=== PATIENT | female | born 1965 | race Caucasian/White ===

== ENCOUNTER 2017-08-08 18:28 | Emergency (ER) | payer OTHER, SELFPAY ==
[2017-08-08 18:45] VITALS: BP 124/65; PULSE 105; RESP 20; TEMP 37.2; O2SAT 96; BMI 28.9
--- NOTE | 2017-08-08 18:55 | HMH.EDUTC ---
[facility] [place] Disposition Clinical Impression: Environmental allergies Asthma Qualifiers: Asthma severity: unspecified severity Asthma persistence: unspecified Asthma complication type: with acute exacerbation Qualified Code(s): J45.901 - Unspecified asthma with (acute) exacerbation Disposition: Home, Self-Care Condition on Discharge: Good Instructions: DI for Asthma -- Adult, DI for Allergic Rhinitis Additional Instructions: * STOP SMOKING!!!! * Avoid triggers!! * Monitor Temp. Fever is not expected so if occurs, be sure to follow * humidifier/vaporizer/hot steamy shower * Inhaler every 4-6 hours as needed like we discussed. Should help open airways and improve cough, wheezing, shortness of breath. * Start steroid tomorrow since we gave you first dose in clinic. Helps with inflammation therefore, cough and wheezing. Follow directions on package. Rvwd side effects. Pt reports they have taken them before. * Restart your zyrtec * Continue your flonase 2 sprays each nostril daily Prescriptions: predniSONE [Prednisone 10mg Tab Dose-Pack] 10 mg PO UD DOSE PK 6 Days #1 pack Referrals: Meagan Driscoll APRN [Primary Care Provider] - (IMMEDIATELY for new or worsening symptoms OR no noticeable improvement over the next 48 hours. 911 for difficulty breathing.) Time of Disposition: 19:00 Medical Decision Making - Chepe Inquiry Pt receiving controlled substance: No Vital Signs: 08/08/17 18:45 Temperature 98.9 F Temperature Source Temporal Artery Scan Pulse Rate [Brachial] 105 H Respiratory Rate 20 Blood Pressure [Right Arm] 124/65 Blood Pressure Mean [Right Arm] 84 Blood Pressure Position [Right Arm] Standing 02 Sat by Pulse Oximetry 96 Oxygen Delivery Method Room Air Orders (Tests/Meds): ED MEDICATIONS Discontinued Medications Generic Name Dose Route Start Last Admin Trade Name Freq PRN Reason Stop Dose Admin Prednisone 20 mg 08/08/17 18:55 Deltasone 20mg Tablet PO 08/08/17 18:56 ONCE ONE [facility] [place] HPI - General Stated complaint: cough, Time Seen by Provider: 08/08/17 18:45 Mode of Arrival: Ambulatory Source of Information: Patient Limitations: No Limitations Description of Symptoms (Recalled from Triage Doc. by RN): COUGHING AND CHEST CONGESTION SINCE SUNDAY. USED HER BREATHING TX AT HOME BUT IT DIDNT SEEM TO HELP. HEENT Symptoms (Recalled from RN notes): No Resp Symptoms (Recalled from RN notes): Yes Skin Symptoms (Recalled from RN notes): No MS Symptoms (Recalled from RN notes): No Functional Status (Recalled from RN notes): NA - History of Present Illness Provider Complaint: c/o cough, chest tightness, wheezing. Started Sunday after cleaning a doctor's office that had a dog and candle. pt thinks she was allergic to it. Immediate onset of allergy symptoms (sneezing, headache, PND, cough). Used neb that night and seemed to help. Seemed ok yesterday until the evening. Chest tight again. Albuterol helps but wears off. Hx of allergies. Typically takes zyrtec and flonase but was doing well so stopped both. Restarted flonase when these symptoms. Is not taking zyrtec. Thinks she needs steroids like she has had to have in the past. No fever, aches, chills. - Related Data Home Medications Medication Instructions Recorded Confirmed Albuterol Sulfate [Albuterol 2.5 mg IH Q6H 08/08/17 08/08/17 0.083% 2.5mg/3mL neb] Albuterol Sulfate [Proair Hfa 1 mcg INHALATION NEEDED PRN 08/08/17 08/08/17 90mcg/puff Inh] Albuterol Sulfate [Proair Hfa 2 puffs IH Q4HP PRN 08/08/17 08/08/17 90mcg/puff Inh] Diclofenac Sodium 50 mg PO TID 08/08/17 08/08/17 Lisinopril/Hydrochlorothiazide 1 tab PO DAILY 08/08/17 08/08/17 [Lisinopril-Hctz 10-12.5 mg Tab] Previous Rx's Medication Instructions Recorded predniSONE [Prednisone 10mg Tab 10 mg PO UD DOSE PK 6 Days #1 pack 08/08/17 Dose-Pack] Allergies Allergy/AdvReac Type Severity Reaction Status Date / Time No Known Allergies Allerg
--- NOTE | 2017-08-08 18:59 | ED_ITS ---
[facility] [place] Clinical Impression: Environmental allergies Asthma Qualifiers: Asthma severity: unspecified severity Asthma persistence: unspecified Asthma complication type: with acute exacerbation Qualified Code(s): J45.901 - Unspecified asthma with (acute) exacerbation Disposition: Home, Self-Care Condition on Discharge: Good Instructions: DI for Asthma -- Adult, DI for Allergic Rhinitis Additional Instructions: * STOP SMOKING!!!! * Avoid triggers!! * Monitor Temp. Fever is not expected so if occurs, be sure to follow * humidifier/vaporizer/hot steamy shower * Inhaler every 4-6 hours as needed like we discussed. Should help open airways and improve cough, wheezing, shortness of breath. * Start steroid tomorrow since we gave you first dose in clinic. Helps with inflammation therefore, cough and wheezing. Follow directions on package. Rvwd side effects. Pt reports they have taken them before. * Restart your zyrtec * Continue your flonase 2 sprays each nostril daily Prescriptions: predniSONE [Prednisone 10mg Tab Dose-Pack] 10 mg PO UD DOSE PK 6 Days #1 pack Referrals: Meagan Driscoll APRN [Primary Care Provider] - (IMMEDIATELY for new or worsening symptoms OR no noticeable improvement over the next 48 hours. 911 for difficulty breathing.) Time of Disposition: 19:00 Medical Decision Making - Chepe Inquiry Pt receiving controlled substance: No Vital Signs: 08/08/17 18:45 Temperature 98.9 F Temperature Source Temporal Artery Scan Pulse Rate [Brachial] 105 H Respiratory Rate 20 Blood Pressure [Right Arm] 124/65 Blood Pressure Mean [Right Arm] 84 Blood Pressure Position [Right Arm] Standing 02 Sat by Pulse Oximetry 96 Oxygen Delivery Method Room Air Orders (Tests/Meds): ED MEDICATIONS Discontinued Medications Generic Name Dose Route Start Last Admin Trade Name Freq PRN Reason Stop Dose Admin Prednisone 20 mg 08/08/17 18:55 Deltasone 20mg Tablet PO 08/08/17 18:56 ONCE ONE [facility] [place]PI - General Stated complaint: cough, Time Seen by Provider: 08/08/17 18:45 Mode of Arrival: Ambulatory Source of Information: Patient Limitations: No Limitations Description of Symptoms (Recalled from Triage Doc. by RN): COUGHING AND CHEST CONGESTION SINCE SUNDAY. USED HER BREATHING TX AT HOME BUT IT DIDNT SEEM TO HELP. HEENT Symptoms (Recalled from RN notes): No Resp Symptoms (Recalled from RN notes): Yes Skin Symptoms (Recalled from RN notes): No MS Symptoms (Recalled from RN notes): No Functional Status (Recalled from RN notes): NA - History of Present Illness Provider Complaint: c/o cough, chest tightness, wheezing. Started Sunday after cleaning a doctor's office that had a dog and candle. pt thinks she was allergic to it. Immediate onset of allergy symptoms (sneezing, headache, PND, cough). Used neb that night and seemed to help. Seemed ok yesterday until the evening. Chest tight again. Albuterol helps but wears off. Hx of allergies. Typically takes zyrtec and flonase but was doing well so stopped both. Restarted flonase when these symptoms. Is not taking zyrtec. Thinks she needs steroids like she has had to have in the past. No fever, aches, chills. - Related Data Home Medications Medication Instructions Recorded Confirmed Albuterol Sulfate [Albuterol 2.5 mg IH Q6H 08/08/17 08/08/17 0.083% 2.5mg/3mL neb] Albuterol
[2017-08-08 19:02] VITALS: BP 136/85; PULSE 89; RESP 18; TEMP 36.8; O2SAT 99
== END 2017-08-08 19:04 | disposition home or self-care (01) ==
PROVIDERS: Emergency Provider Nurse Practitioner Family; PCP Nurse Practitioner
DX: J45.901 Unspecified asthma with (acute) exacerbation (principal); I10 Essential (primary) hypertension; F17.210 Nicotine dependence, cigarettes, uncomplicated; Z91.09 Other allergy status, other than to drugs and biological substances
CPT/HCPCS: 99201

== ENCOUNTER → 2018-04-12 10:26 | Outpatient (CLI) | payer OTHER, SELFPAY | PROVIDERS: PCP Nurse Practitioner; Visit Provider Nurse Practitioner | DX: J44.1 Chronic obstructive pulmonary disease with (acute) exacerbation (principal) | CPT/HCPCS: 94060; 94640 ==

== ENCOUNTER 2018-04-30 15:45 | Outpatient (RCR) | payer OTHER, SELFPAY | END 2018-08-14 08:55 | disposition home or self-care (01) | LOC: PT 15:45 | PROVIDERS: Visit Provider Nurse Practitioner | DX: J44.1 Chronic obstructive pulmonary disease with (acute) exacerbation (principal); J44.9 Chronic obstructive pulmonary disease, unspecified | CPT/HCPCS: G0424 ==

== ENCOUNTER → 2018-10-09 08:23 | Outpatient (CLI) | payer OTHER, SELFPAY ==
--- NOTE | 2018-10-09 08:26 | US_ITS ---
US Kidney CLINICAL INDICATION: Abdominal pain, bilateral flank pain, possible left renal mass, deformity of the left kidney ITS.REASON: ABN CT KIDNEY SCAN ORDERING PHYSICIAN: Meagan Driscoll APRN PATIENT AGE: 53 years Comparison: 09/29/2018 FINDINGS: The right kidney measures 7 x 4 x 3 cm. No hydronephrosis. No significant cortical thinning. The left kidney is 7 x 4 x 3 cm the left kidney is not well demonstrated sonographically. No hydronephrosis is apparent. There is cortical scarring of the left kidney. IMPRESSION: 1. Unremarkable right kidney. 2. Cortical scarring of the left kidney. No hydronephrosis. The left kidney is poorly demonstrated. Underlying parenchymal pathology cannot be excluded based on this exam. Further evaluation could be obtained with MRI if clinically desired
== END ==
PROVIDERS: PCP Nurse Practitioner; Visit Provider Nurse Practitioner
DX: R93.422 Abnormal radiologic findings on diagnostic imaging of left kidney (principal); R93.421 Abnormal radiologic findings on diagnostic imaging of right kidney
CPT/HCPCS: 76770

== ENCOUNTER → 2018-10-31 07:48 | Outpatient (CLI) | payer OTHER, SELFPAY ==
--- NOTE | 2018-10-31 07:52 | MR_ITS ---
MR lumbar spine wo con, MR 3-d myelogram/MRCP HISTORY: LBP. Intermittent LT leg pain, numbness, and tingling. XYRS. ITS.REASON: LUMBAGO WITH SCIATICA ORDERING PHYSICIAN: Meagan Driscoll APRN PATIENT AGE: 53 years Comparison: CT 01-15-18. TECHNIQUE: Standard multiplanar multiecho sequences are performed without contrast. 3-D MIP and myelographic images are also rendered and reviewed FINDINGS: There is normal alignment. The spinal cord ends at the T12 level. L1-L2: Unremarkable. L2-L3: There is degenerative disc disease with some endplate hypertrophic change anteriorly. There is bulging disc with a broad-based left foraminal disc protrusion with moderate left foraminal narrowing and mild left lateral recess narrowing. L3-L4: Mild facet and ligamentum flavum hypertrophic change. L4-L5: Degenerative disc disease with 5 mm anterolisthesis of L4 with bulging disc at that level which is eccentric toward the left with left paracentral disc osteophyte complex. There is moderate facet ligamentum flavum hypertrophy with moderate bilateral lateral recess narrowing greater on the left and moderate left-sided foraminal narrowing. There is a small amount fluid in the facets at this level. L5-S1: Degenerative disc disease with bulging disc and a broad-based central and right paracentral disc protrusion abutting the right S1 nerve root with right lateral recess narrowing. No extruded herniated disc or bony canal stenosis. IMPRESSION: 1. L2-L3: There is degenerative disc disease with some endplate hypertrophic change anteriorly. There is bulging disc with a broad-based left foraminal disc protrusion with moderate left foraminal narrowing and mild left lateral recess narrowing 2. L4-L5: Degenerative disc disease with 5 mm anterolisthesis of L4 with bulging disc at that level which is eccentric toward the left with left paracentral disc osteophyte complex. There is mild impingement upon the left L3 nerve root anteriorly. There is moderate facet ligamentum flavum hypertrophy with moderate bilateral lateral recess narrowing greater on the left and moderate left-sided foraminal narrowing. There is a small amount fluid in the facets at this level. 3. L5-S1: Degenerative disc disease with bulging disc and a broad-based central and right paracentral disc protrusion abutting the right S1 nerve root with right lateral recess narrowing. 4. No extruded herniated disc or canal stenosis
== END ==
PROVIDERS: PCP Nurse Practitioner; Visit Provider Nurse Practitioner
DX: M54.42 Lumbago with sciatica, left side (principal); M54.41 Lumbago with sciatica, right side
CPT/HCPCS: 72148; 76376

== ENCOUNTER 2018-11-26 08:00 | Outpatient (RCR) | payer OTHER, SELFPAY ==
--- NOTE | 2018-11-18 11:29 | HMH.PTOPEV ---
PT Outpatient Evaluation Rehab PT Outpatient Evaluation Start: 11/18/18 10:37 Freq: Status: Active Protocol: Document 11/18/18 10:37 DERREK (Rec: 11/18/18 11:28 DERREK [id number]) Electronically Signed By Jimy Zazueta, PT 11/18/18 10:37 Outpatient Therapy Subjective History Subjective History Pt rpeorts h/o LBP w/ exacerbation over the last 2-3 months. Pt reports recent MRI has revealed lumbar disc buldges. Pt reports L>R sided LBP with intermittent radicular s/s into L hip/glut area. PMH: cervical fusion 2007 Chief Complaint Pain,Stiff,Paresthesia Symptom Type Ache,Sharp,Dull Symptoms Relieved By Rest/Positioning,Heat,Ice Symptoms Aggravated By Physical Activity,Walking Prior Functional Limitations Lifting,Housework,Walking, Bending/Stooping Current Functional Limitations Lifting,Housework,Walking, Bending/Stooping Symptom Description Constant but Variable Level of pain today (0-10) 7 Pain scale - at its best (0-10) 3 Pain scale - at its worst (0-10) 8 Lumbopelvic Eval Posture Thoracic Spine Posture Standing Position Neutral Lumbar Spine Posture Standing Position Neutral Assistive device Assistive Devices None / NA Gait Observation General Gait Pattern Observation Antalgic Gait Palapation tenderness left lumbar spinal tenderness Yes: 3/4 paraspinal tenderness Yes: 3/4 buttock tenderness Yes: 3/4 Lumbar/Sacral Palpation Findings Tenderness right lumbar spinal tenderness Yes: 3/4 paraspinal tenderness Yes: 3/4 buttock tenderness Yes: 3/4 Lumbar/Sacral Palpation Findings Tenderness Accessory Movement L-spine Vertebrae Accessory Movements Central [employer] [place] that [place] Symptoms L3 bilateral L4 bilateral L5 bilateral Range of Motion Lumbar Spine Active Flexion Range of 0-30 Motion (degrees) Lumbar Spine Active Extension Range of 0-20 Motion (degrees) Left Lumbar Spine Lateral Flexion Active 0-20 Range of Motion (degrees) Right Lumbar Spine Lateral Flexion 0-30 Active Range of Motion (degrees) Lumbar Spine ROM Limitations Pain Manual Muscle Test Right Knee Extension Strength Grade 5 Normal Knee Flexion Strength Grade 5 Normal Hip Flexion Strength Grade 5 Normal Extensor Hallucis Longus Strength Grade 5 Normal Ankle Dorsiflexion Strength Grade 5 Normal G
== END 2018-11-26 08:05 | disposition home or self-care (01) ==
LOC: PT 08:00
PROVIDERS: Visit Provider Nurse Practitioner
DX: M51.26 Other intervertebral disc displacement, lumbar region (principal)
CPT/HCPCS: 97010; 97012; 97014; 97110; 97163; G0283

== ENCOUNTER → 2019-01-27 16:03 | Outpatient (CLI) | payer OTHER, SELFPAY ==
--- NOTE | 2019-01-27 16:08 | XR_ITS ---
PROCEDURE: XR HIP RT 2-3V W/PELVIS CLINICAL INDICATION: FALL,MEMORY LOSS, Posttraumatic pain COMPARISON: No exams were available for comparison FINDINGS: Mild osteoarthritic change, no acute fracture or dislocation. IMPRESSION: No acute findings. Dictated by: Darrick Blackwell MD 01/28/2019 07:14 Electronically signed by Darrick Blackwell MD in [place] 01/28/2019 07:14
--- NOTE | 2019-01-27 16:08 | XR_ITS ---
PROCEDURE: XR CERVICAL SPINE 5V CLINICAL INDICATION: FALL,C-SPINE PAIN Neck pain following injury COMPARISON: No exams were available for comparison FINDINGS: There is straightening of the cervical lordosis. The bone plate is present anteriorly at C5-C6. There degenerative disc disease at C4-C5 and C6-C7. Facet hypertrophic changes are present from C3-C7. Foraminal narrowing is present on the right at C2-C3 C3-C4 C4-C5 and on the left at C3-C4 C4-C5. No obvious fracture or dislocation.. The inferior screws at the bone plate are near the C6-C7 interspace level. CT may better localize the definite location of the screws. IMPRESSION: 1. No acute fracture. 2. Multilevel cervical spondylosis. 3. Prior anterior fusion at C5-C6. The inferior screws are at the lower aspect of C6/C6-C7 Dictated by: Darrick Blackwell MD 01/28/2019 07:11 Electronically signed by Darrick Blackwell MD in [place] 01/28/2019 07:11
--- NOTE | 2019-01-27 16:08 | XR_ITS ---
PROCEDURE: XR ELBOW RT MIN 3V CLINICAL INDICATION: FALL,MEMORY LOSS Posttraumatic pain COMPARISON: No exams were available for comparison FINDINGS: No fracture or dislocation. No lytic or blastic change. There is normal mineralization. There are mild osteoarthritic changes Other findings:No displaced fat pad IMPRESSION: No acute findings. Dictated by: Darrick Blackwell MD 01/28/2019 07:14 Electronically signed by Darrick Blackwell MD in [place] 01/28/2019 07:14
== END ==
PROVIDERS: PCP Nurse Practitioner; Visit Provider Nurse Practitioner
DX: R41.3 Other amnesia (principal); M54.2 Cervicalgia; W10.1XXA Fall (on)(from) sidewalk curb, initial encounter
CPT/HCPCS: 72050; 73080; 73502

== ENCOUNTER → 2019-10-06 13:23 | Outpatient (POV) | payer OTHER, SELFPAY | PROVIDERS: PCP Nurse Practitioner; Visit Provider Specialist | DX: R29.898 Other symptoms and signs involving the musculoskeletal system (principal); R20.0 Anesthesia of skin | CPT/HCPCS: 95886; 95909 ==

== ENCOUNTER → 2019-10-22 13:33 | Outpatient (CLI) | payer OTHER, SELFPAY ==
--- NOTE | 2019-10-22 13:40 | XR_ITS ---
PROCEDURE: XR WRIST RT MIN 3V CLINICAL INDICATION: right wrist pain/ cts COMPARISON: XR WRIST LT MIN 3V from 10/22/2019 FINDINGS: There are multiple well-circumscribed calcific densities distal to the ulna the largest of which measures 8 mm and could be related to an old ununited fracture of the ulnar styloid. The smaller calcific densities a could be posttraumatic as well the or due to small synovial osteochondromas. No other significant anomalies are evident. IMPRESSION: Multiple well-circumscribed calcific densities distal to the ulna and could represent sequela from prior trauma, ununited ossification centers, synovial osteochondromas or a combination there of Dictated by: Darrick Blackwell MD 10/22/2019 15:34 Electronically signed by Darrick Blackwell MD in [place] 10/22/2019 15:34
--- NOTE | 2019-10-22 13:40 | XR_ITS ---
PROCEDURE: XR WRIST LT MIN 3V CLINICAL INDICATION: left wrist pain/ cts COMPARISON: No exams were available for comparison FINDINGS: Minimal osteoarthritic changes are present at the scapho trapezium joint and at the 1st metacarpal-carpal joint. No fracture or dislocation. No lytic or blastic change. 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
== END ==
PROVIDERS: PCP Family Medicine; Visit Provider Orthopaedic Surgery
DX: M25.532 Pain in left wrist (principal); M25.531 Pain in right wrist
CPT/HCPCS: 73110

== ENCOUNTER → 2019-11-05 11:22 | Outpatient (CLI) | payer OTHER, SELFPAY ==
--- NOTE | 2019-11-05 11:31 | XR_ITS ---
PROCEDURE: XR CHEST 2V CLINICAL HISTORY: TOBACCO USE COMPARISON: CTAC CTA-CHEST from 05/25/2016 CXR2V XR chest 2V from 04/02/2018 CXR2V XR chest 2V from 09/29/2018 XR CHEST 2V from 03/15/2019 FINDINGS: The cardiomediastinal silhouette and pulmonary vascularity are within normal limits. The lungs are clear without infiltrates, suspicious nodules, or pleural effusions. There is an old right 7th rib fracture. Bone plate is present over lower cervical spine IMPRESSION: No change with no acute finding Dictated by: Darrick Blackwell MD 11/05/2019 14:36 Electronically signed by Darrick Blackwell MD in [place] 11/05/2019 14:36
[2019-11-05 11:43] LABS: Basophils % 0.7 % (0.1-2.0); Eosinophils # 0.2 K/mm3 (0.0-0.4); Eosinophils % 3.2 % (0.1-12.0); Hematocrit 43.2 % (37.0-47.0); Hemoglobin 14.3 g/dL (12.2-16.2); Lymphocytes # 2.5 K/mm3 (0.7-4.5); Lymphocytes % 36.6 % (10-50); Mean Corpuscular HGB Conc 33.1 g/dL (31.8-35.4); Mean Corpuscular Hemoglobin 32.3 pg (27.0-31.2); Mean Corpuscular Volume 97.6 fl (81-99); Mean Platelet Volume 8.4 fl (7.4-10.4); Monocytes # 0.5 K/mm3 (0.1-1.0); Monocytes % 6.8 % (1.7-9.3); Neutrophils # 3.6 K/mm3 (1.8-7.8); Neutrophils % 52.7 % (37.0-80.0); Platelet Count 246 K/mm3 (142-424); Red Blood Count 4.43 M/mm3 (4.20-5.40); Red Cell Distribution Width 13.2 % (11.5-17.5); White Blood Count 6.8 K/mm3 (4.8-10.8)
[2019-11-05 12:34] LABS: Coronavirus 19 IgG Antibody Negative (Negative); Coronavirus 19 IgM Antibody Negative (Negative)
[2019-11-05 12:37] LABS: Alanine Aminotransferase 17 U/L (12-78); Albumin/Globulin Ratio 1.7 (1.1-1.8); Alkaline Phosphatase 62 U/L (38-126); Anion Gap 11.9 mEq/L (5-15); Aspartate Amino Transferase 27 U/L (14-36); Bilirubin,Total 0.3 mg/dl (0.2-1.3); Blood Urea Nitrogen 15 mg/dl (7-17); Calcium 9.7 mg/dl (8.4-10.2); Carbon Dioxide 30 mmol/L (22.0-30.0); Chloride 101 mmol/L (98-107); Estimated Glomerular Filt Rate 65 ml/min (>60); GFR (African American) 78 ML/MIN (>60); Globulin 2.4 g/dL (1.3-3.2); Glucose 62 mg/dl (74-100); Potassium 3.9 mmoL/L (3.5-5.1); Sodium 139 mmol/L (136-145); Total Protein,Serum 6.4 g/dl (6.3-8.2)
== END ==
PROVIDERS: Visit Provider Orthopaedic Surgery
DX: Z01.818 Encounter for other preprocedural examination (principal); G56.01 Carpal tunnel syndrome, right upper limb
CPT/HCPCS: 36415; 71046; 80053; 85025; 86328

== ENCOUNTER 2019-11-06 06:03 | Day surgery (SDC) | payer OTHER, SELFPAY ==
--- NOTE | 2019-11-04 09:17 | SUR.PREOP ---
11/04/2019 @ 0900--PHONE CALL MADE TO PATIENT. PATIENT UNDERSTANDS THAT LAB WORK AND COVID TESTING NEEDS TO BE COMPLETED BETWEEN 8-12PM. PATIENT UNDERSTANDS IF LAB WORK AND COVID-19 TESTS ARE NOT COMPLETED BY 12PM ON THAT DATE, THE SURGERY SCHEDULED WILL BE CANCELLED AND RESCHEDULED FOR ANOTHER TIME.
[2019-11-04 10:55] VITALS: BMI 29.5
[2019-11-06 06:16] VITALS: BP 142/75; PULSE 97; RESP 20; TEMP 36.8; O2SAT 99
--- NOTE | 2019-11-06 06:56 | HMH.ANESCL ---
[facility] Anesthesia Checklist - Patient Identification Patient Identification: Arm Band, Verbal (Name & ) - Structural Data Admitted From: Home Planned Operative Procedure/s: r ctr Consent for Planned Operative Procedure(s) Verified: Yes Verified Documents: History and Physical - NPO Status Verified Time NPO: 00:00 - Chart Verification Results Verified: CBC, BMP - Additional verifications Patient : No Anesthesia Reactions: No Hx Blood Transfusions: No Blood Transfusion Reaction: No Cephalosporin Allergy: No Previous Colonoscopy: No - Cardiovascular Assessment Heart Sounds: S1 & S2 Pulse Strength: Baseline Pulse Rhythm: Regular Peripheral Edema: Yes - Airway Assessment C-Spine Mobility Assessed: No TMJ Mobility Assessed: No Dentition: Dentures-good fit - Neurological Assessment Level of Consciousness: Awake, Alert, Appropriate Hx Seizures: No Numbness or tingling in extremities: No - Anesthesia Plan Anesthesia Risk discussed: Yes Anesthesia Plan: Verified ASA Class: III Anesthesia Type: MAC w/Block [facility] History I have reviewed the patient's past medical history: Yes Medical History: Reports:: Anxiety, Asthma, Chronic Obstructive Pulmonary Disease (COPD), Hypertension Denies:: Cancer, Diabetes Mellitus Type 1, Diabetes Mellitus Type 2, MRSA, Seizures *Have you ever received a pneumonia vaccine?: Yes *Have you received a flu vaccine this season?: Yes Other Medical History: Reports: Arthritis, Other (allergies). Denies: Blood Transfusion Reaction Anesthesia experience/problems:: none Other Surgeries: Yes: No Previous Surgery, Tubal Ligation, Other (cholecystectomy, heel spurs, herniated disc) Amputation: No Fractures: No - *Social History Educational Level: Attended High School Smoking Status: Current every day smoker Tobacco Type: cigarettes # Packs/Day (cigarettes): 1 Alcohol Intake: never Alcohol Intake Frequency:: holidays/special occasions only Substance Use Type: other *Occupational Status:: employed Housing: house *Travel in the last 8 weeks: None - Psychiatric History Pschychiatric History:: Reports:: Anxiety Family Hx:: No significant family history
[2019-11-06 08:58] VITALS: BP 110/73; PULSE 91; RESP 18; TEMP 36.2; O2SAT 95
[2019-11-06 09:08] VITALS: BP 113/74; PULSE 84; RESP 18; O2SAT 95
--- NOTE | 2019-11-06 09:16 | HMH.OPNOTE ---
Date of procedure: 11/06/19 Pre-op Diagnosis:: Carpal tunnel syndrome, right Post-op Diagnosis:: Same Procedure performed:: Open carpal tunnel release, right Surgeon:: Maciej Daniels MD POLICE ARTIST:: Young Lawson Anesthesia: regional (Grass Range's block) Estimated blood loss (mL): 2 Clinical Note:: Patient is 54-year-old female with bilateral carpal tunnel syndrome with long-standing symptoms. Previously EMG/NCV results confirmed carpal tunnel syndrome on both sides and her symptoms are worse o on the right side. Patient is having significant and disabling symptoms on the right side and has failed to respond adequately to conservative management. Therefore, patient elected to proceed with surgical remediation in the form of open carpal tunnel release. The carpal tunnel release surgery is necessary to relieve symptoms, preserve the remaining fibers of the median nerve, improve function and decrease the pain, paresthesias and weakness and to prevent permanent nerve damage. Please refer to my office note for full details. Operative findings:: The intraoperative findings showed the median nerve to be very tightly compressed and hyperemic. The flexor retinaculum was noted to be thick and tight. There was mild synovitis in the carpal tunnel. There was no evidence of any space-occupying lesions within the carpal tunnel. Operative note:: On the day of the surgery the patient was met in the preoperative area. Patient was positively identified and the operative site was marked and initialed by me. A physical examination was performed and the chart was updated. I again discussed the procedure, risks and benefits and alternatives with the patient. The complications discussed include but are not limited to- bleeding, injury to nerves, blood vessels and tendons, infection, wound dehiscence, incomplete relief/continued pain, persistent numbness, palmar hypersensitivity, pillar pain, DVT/PE, complex regional pain syndrome(CRPS), worsening of nerve damage, failure of the condition to improve, incomplete return of function, bowstringing of tendons, weakness of cover seamer strength, recurrence, failure of the surgery to accomplish the desired goals, decreased use of the hand, loss of use of the arm, loss of the hand or arm, loss of life. Likely need for further surgery in the future has been discussed. I've indicated to the patient where the proposed incision would be made and also discussed the possibility of extending the incision if needed to accomplish an effective release. We have discussed how the goal of surgery is to protect the fibers which have remained healthy and hopefully reverse the symptoms of the fibers which are compromised but still recoverable. We have explained that, fibers that are permanently damaged will not recover. Patient asked appropriate questions and all have been answered by me. Patient wished to proceed with the surgery. Patient understood the risks, agreed to proceed with surgery, and no guarantees or assurances were given or implied. The patient was brought to the operating room and placed supine on the operating table. The right upper extremity was placed over a side table. All the bony prominences were well-padded. The patient had a Grass Range's block anesthesia and IV sedation administered by the skating rink manager. Please see nursing records for the total tourniquet time. The right upper extremity was prepped and draped in the usual sterile fashion. A preprocedure timeout was performed as per hospital policy. The skin incision was marked using the Basilio's landmarks, just ulnar to the thenar crease. Basilio's landmarks were utilized and a skin incision was made parallel and just ulnar to the thenar crease with a 15 blade. Blunt tissue dissection was carried through the subcutaneous tissue down to the palmar fascia. The palmar fascia was incised with the knife to reveal the transverse carpal ligament. The transverse carpal ligament was adequately exposed and then incis
[2019-11-06 09:18] VITALS: BP 119/80; PULSE 80; RESP 18; O2SAT 97
[2019-11-06 09:23] VITALS: BP 120/74; PULSE 82; RESP 18; O2SAT 97
[2019-11-06 09:30] VITALS: BP 123/76; PULSE 73; RESP 18; O2SAT 98
== END 2019-11-06 09:30 | disposition home or self-care (01) ==
LOC: OR 06:05
PROVIDERS: PCP Family Medicine; Visit Provider Orthopaedic Surgery
PROC: (CPT 64721; principal; 2019-11-06 07:30)
DX: G56.01 Carpal tunnel syndrome, right upper limb (principal)
CPT/HCPCS: 64721; 96374

== ENCOUNTER → 2020-02-26 19:33 | Outpatient (CLI) | payer OTHER, SELFPAY ==
[2020-02-26 19:40] VITALS: BMI 26.6
== END ==
PROVIDERS: PCP Family Medicine; Visit Provider Nurse Practitioner
DX: J06.9 Acute upper respiratory infection, unspecified (principal)
CPT/HCPCS: 96372

== ENCOUNTER 2020-03-10 17:53 | Emergency (ER) | payer OTHER, SELFPAY ==
[2020-03-10 18:01] VITALS: BP 158/98; PULSE 100; RESP 20; TEMP 36.6; O2SAT 96; BMI 29.5
--- NOTE | 2020-03-10 18:10 | HMH.EDUTC ---
[facility] [place]ression: Low back pain with sciatica Qualifiers: Chronicity: unspecified Back pain laterality: right Sciatica laterality: sciatica of right side Qualified Code(s): M54.41 - Lumbago with sciatica, right side Disposition: Home, Self-Care Condition on Discharge: Good Instructions: DI for Low Back Pain, DI for Sciatica, DI for Back Pain With Sciatica, Methylprednisolone Additional Instructions: *Continue taking Diclofenac as prescribed by your Family Physician *Not additional anti-inflammatory like motrin, aleve, advil with the above amount of ibuprofen. You can still take Tylenol every 4 hours as needed if you need something else for pain *Ice 20 minutes every 2 hours for the first 48 hours after the initial injury followed by moist heat every 20 minutes 3-4 times a day to affected area Follow up with your your family doctor as prescribed *Keep this area active, no movement leads to more stiffness, However take it easy and avoid heavy lifting pushing or pulling *Follow up with you family doctor if no improvement for further treatment Start Medrol dose pack tomorrow Straight to ER if any life threatening symptoms Prescriptions: Cyclobenzaprine HCl [Flexeril 10mg tablet] 10 mg PO TID PRN #15 tab PRN Reason: Muscle Spasm Transmission Status: Pending to Clinic [facility] [employer] methylPREDNISolone [Medrol 4mg tab] 4 mg PO DIRECTED #21 tab Transmission Status: Pending to Clinic Pharm[facility] Referrals: Meagan Driscoll APRN [Primary Care Provider] - As needed Time of Disposition: 18:27 Medical Decision Making - Chepe Inquiry Pt receiving controlled substance: No Chepe was queried for this patient: No Vital Signs: 03/10/20 18:01 Temperature 97.9 F Temperature Source Oral Pulse Rate [Radial] 100 H Respiratory Rate 20 Blood Pressure [Right Arm] 158/98 H Blood Pressure Mean [Right Arm] 118 Blood Pressure Source [Right Arm] Automatic Cuff Blood Pressure Position [Right Arm] Sitting 02 Sat by Pulse Oximetry 96 Oxygen Delivery Method Room Air Orders (Tests/Meds): ED MEDICATIONS Discontinued Medications Generic Name Dose Route Start Last Admin Trade Name Freq PRN Reason Stop Dose Admin Methylprednisolone Sodium Succinate 125 mg 03/10/20 18:18 Methylprednisolone Sod Succ 125mg Vial IM 03/10/20 18:19 ONCE ONE Medical Decision Narrative: Discussed xray of Lspine and patient declined at this time [facility] [place] - General Stated complaint: Right leg pain Time Seen by Provider: 03/10/20 18:11 Mode of Arrival: Ambulatory Source of Information: Patient Limitations: No Limitations Description of Symptoms (Recalled from Triage Doc. by RN): right sided back pain that shoots down her leg. HEENT Symptoms (Recalled from RN notes): No Resp Symptoms (Recalled from RN notes): No Skin Symptoms (Recalled from RN notes): No MS Symptoms (Recalled from RN notes): Yes Functional Status (Recalled from RN notes): wnl - History of Present Illness Provider Complaint: Patient state that she has a history of degenerative disk disease in her lower back States that today she woke up and was having pain in her right lower back that is extending down her right buttock area into her right leg States that pain is worse when she raises right leg feels like it did when she had sciatica Denies loss of control of bowel or bladder - Related Data Home Medications Medication Instructions Recorded Confirmed Albuterol Sulfate [Proair Hfa 1 mcg INHALATION NEEDED PRN 08/08/17 11/11/19 90mcg/puff Inh] Diclofenac Sodium 50 mg PO TID 08/08/17 11/11/19 Lisinopril/Hydrochlorothiazide 1 tab PO DAILY 08/08/17 11/11/19 [Lisinopril-Hctz 10-12.5 mg Tab] Budesonide/Formoterol Fumarate 2 puffs INHALATION DAILY 09/29/18 11/11/19 [Symbicort 160-4.5 Mcg Inhaler] Fluticasone Propionate 1 spray NS DAILY 09/29/18 11/11/19 Metoclopramide HCl [Metoclopramide 10 mg PO Q8H 09/29/18 11/11/19 10mg Tablet]
[2020-03-10 18:41] VITALS: BP 158/98; PULSE 100; RESP 20; TEMP 36.6; O2SAT 96
== END 2020-03-10 18:42 | disposition home or self-care (01) ==
PROVIDERS: Emergency Provider Nurse Practitioner; PCP Nurse Practitioner
DX: M54.41 Lumbago with sciatica, right side (principal); J44.9 Chronic obstructive pulmonary disease, unspecified; I10 Essential (primary) hypertension; F41.9 Anxiety disorder, unspecified; F17.210 Nicotine dependence, cigarettes, uncomplicated; Z79.899 Other long term (current) drug therapy
CPT/HCPCS: 96372; 99201

== ENCOUNTER → 2020-04-01 11:04 | Outpatient (CLI) | payer OTHER, SELFPAY ==
--- NOTE | 2020-04-01 | CA_ITS ---
APPROVED REPORT Exam: Pharmacologic Technologist: Jenny Alcocer, Ht: 5 ft 9 in Wt: 203 lbs BSA: 2.08 m2 HR: 78 bpm BP: 159/89 mmHg Rhythm: NSR,BORDERLINE CRITERIAFOR LEFT ATRIAL ENLARGEMENT Medical History Medical History: HTN, Hyperlipidemia Medications: Diazepam,,,,, Lisinopril/HCTZ,,,,, Albuterol,,,,, Diclofenac,,,,, Cetrizine,,,,, Prednisone,,,,, FluTICASONE,,,,, Cyclobenzaprine,,,,, Allergies: No known drug allergies Cardiac Risk Factors: HTN, Hyperlipidemia, FHX of CAD Stress Test Details Test: LEXISCAN HR Resting HR: 83 bpm Max Heart Rate (APMHR): 163 bpm Max HR Achieved: 120 bpm Target HR (85% APMHR): 138 bpm % of APMHR: 73 Recovery HR: 110 bpm BP Resting BP: 159.0/89.0 mmHg Max BP: 167.0/82.0 mmHg Recovery BP: 144.0/88.0 mmHg ECG Resting ECG: NSR,BORDERLINE CRITERIA FOR LEFT ATRIAL ENLARGEMENT Clinical Exercise duration: 04:01 min Highest Stage Achieved: Exercise capacity: 1.0 METs Stress ECG Conclusion DURING INFUSION OF LEXISCAN PATIENT HAD SOA AND MALAISE. NO CHEST PAIN. OCCASIONAL PAC. RARE PVC. NO SIGNIFICANT ST-T CHANGES. UNREMARKABLE LEXISCAN STRESS. MYOVIEW IMAGES REPORTED SEPARATELY. Test Summary RECOVERY 05:00 . . 93 . 139/ 84 . . REST 03:58 . . 83 . 159/ 89 . . Stage 1 . . . . . . . Myoview Injected Stage 1 01:00 . . 110 . . . . Stage 2 01:00 . . 113 . . . . Stage 3 01:00 . . 104 . . . . Stage 4 01:00 . . 102 . 143/ 79 . . Stage 4 01:01 . . 102 . 143/ 79 . Stop exercise at 04:01 RECOVERY 01:00 . . 111 . 144/ 88 . . RECOVERY 02:00 . . 99 . 167/ 82 . . RECOVERY 03:00 . . 100 . 167/ 82 . . RECOVERY 04:00 . . 101 . 167/ 82 . . RECOVERY 05:00 . . 93 . 139/ 84 . . RECOVERY 06:00 . . 89 . 139/ 84 . . RECOVERY 07:00 . . 88 . 139/ 84 . . RECOVERY 08:00 . . 97 . 139/ 84 . . RECOVERY 08:17 . . 94 . 139/ 84 . . Electronically signed by : Harjinder Wilde, 04/02/2020 11:05:03
--- NOTE | 2020-04-01 | CA_ITS ---
APPROVED REPORT EXAM: Comprehensive 2D, Doppler, and color-flow Echocardiogram Community Development Specialist: Ethel Varela RDCS Ht: 5 ft 9 in Wt: 203lbs BSA: 2.08 BP: 130/82 mmHg Indications: SOA 2D Dimensions LVOT 1.52 cm (M/F) 1.5-2.5 M-Mode Dimensions RVDd 2.69 cm (0.9-2.6) LA Diam 3.24 cm (1.9-4.0) LVDd 4.17 cm (3.5-5.7) Ao Diam 2.93 cm (2.0-3.7) LVDs 2.47 cm (3.5-5.7) IVSd 0.91 cm (0.6-1.1) PWd 0.91 cm (0.6-1.1) EF (Teich) 71.90% FS 40.80% EDV (Teich) 77.30 mL ESV (Teich) 21.70 mL LV Diastology E Decel Time 347.00 (160-240 msec) E/A Ratio 0.9 MED E' 9.30 (< 7 cm/sec) E'/MED E' Ratio 9.00 (>14) LAT E' 8.10 (<10 cm/sec) E/LAT E' Ratio 10.33 (>14) Mitral Valve MV E Max Froylan. 84.00 (40-130 cm/s) MV A Velocity 89.00 (40-130 cm/s) E/A Ratio 0.94 MV Decel. Time 347.00 (160-240 ms) MV PHT 102.00 ms Tricuspid Valve TR P. Velocity 283.00 cm/s RAP Estimate 10.00 mmHg RVSP 42.10 mmHg Left Ventricle Left atrium is normal size, left ventricle is normal size, there is no concentric left ventricular hypertrophy, visually estimated ejection fraction 55% with no regional wall motion abnormality, diastolic parameters are inconclusive. Right Ventricle Right atrium and right ventricle are normal size and contractility. Aortic Valve Aortic valve is minimally thickened and fibrosed, there is no aortic stenosis or aortic insufficiency. Mitral Valve Mitral valve is grossly normal, there is mild mitral regurgitation. Tricuspid Valve Tricuspid valve is grossly normal, there is mild tricuspid regurgitation, calculated right ventricular systolic pressure is 42 mmHg. Pulmonic Valve Pulmonic valve is poorly visualized. Great Vessels Aortic root is normal size. Pericardium No significant pericardial effusion noted. Conclusion 1. Normal left ventricular size, preserved left ventricular systolic function, visually estimated ejection fraction 55% with no regional wall motion abnormality, diastolic parameters are inconclusive. 2. Mild mitral and tricuspid regurgitation, calculated right ventricular systolic pressure is 42 mmHg. 3. No significant pericardial effusion noted. Electronically signed by : Harjinder Wilde, 04/01/2020 14:51:39
--- NOTE | 2020-04-01 11:40 | NM_ITS ---
APPROVED REPORT Exam: Nuclear Stress Test Indication: SOB, HTN, High cholesterol, Tobacco use, Family history Patient Location: Outpatient Stress Tech: Melissa Carlyn ME Tech:Naomi Boswell JOYRuben RT(R)(N) Ht: 5 ft 9 in Wt: 190 lbs Bra Size: B HR: 78 bpm BP: 159/89 mmHg BSA: 2.02 m2 BMI: 28.0 History: SOB, HTN, High cholesterol, Tobacco use, Family history Procedure: Patient received a 0.4 mg of intravenous Lexiscan, resting heart rate 78 bpm, resting blood pressure 159/89 mmHg, with Lexiscan maximum heart rate achived was 115 bpm which is Less than 85 % of the maximum predicted heart rate and blood pressure was 142/84 mmHg. With Lexiscan, patient denied any complaint of chest pain. Electrocardiogram Resting electrocardiogram showed sinus rhythm, with Lexiscan there is less than 1.[address] segment depression noted from the baseline EKG. The EKG portion of the Lexiscan is nondiagnostic. Cardiac Stress and Resting SPECT Images: Cardiac Stress and Resting SPECT images were obtained using technetium 99m Myoview 31.6 mCi stress and 10.54 mCi at rest. Gated SPECT for the analysis of segmental wall motion and calculation of the ejection fraction also done. Cardiac stress and resting SPECT images show uniform myocardial activity without segmental perfusion abnormality, computer derived ejection fraction is over 65% with no regional wall motion abnormality, right ventricle is normal size and contractility. Conclusion: 1. The EKG portion of the Lexiscan is nondiagnostic. 2. No scintigraphic evidence of reversible ischemia seen, computer derived ejection fraction is over 65% with no regional wall motion abnormality, right ventricle is normal size and contractility. 3. Normal Lexiscan Myoview study. Electronically signed by : Harjinder Wilde, 04/02/2020 11:07:51
--- NOTE | 2020-04-01 13:56 | HMH.ITSHM ---
Current Home Medications as stated by this patient Britney Coughlin or parts representative. [] asa lisinopril pantoprazole
== END ==
PROVIDERS: PCP Nurse Practitioner; Visit Provider Nurse Practitioner
DX: R06.02 Shortness of breath (principal)
CPT/HCPCS: 78452; 93017; 93306; A9502; J2785

== ENCOUNTER → 2020-04-08 14:02 | Outpatient (CLI) | payer OTHER, SELFPAY ==
--- NOTE | 2020-04-08 14:02 | CT_ITS ---
PROCEDURE: CT LUNG SCREENING CLINICAL INDICATION: LDCT CURRENT SMOKER 35 pack year smoking history COPD, EMPHYSEMA FAMILY HX LUNG CA NO PRIOR LDLS PRIOR CTA CHEST, 05/25/16 COMPARISON: CT CTAC CTA-CHEST from 05/25/[id number] abdomen pelvis wo con from 09/29/2018 TECHNIQUE: The exam was performed on a [employer] Speed [address] scanner using 2.90 mGy CTDI. A low dose helical CT CHEST was performed on a multi-detector scanner. All CT scans at the facility use one or more dose reduction, viz: automated exposure control, ma/kV adjustment per patient size (including targeted exams where dose is matched to indication, i.e. head), or iterative reconstruction technique. The LDCT was performed in a facility that meets the criteria for the screening program. Data regarding this exam was submitted to ACR which is an approved registry. The order for this exam indicates that it came as a result of a lung cancer screening counseling shard decision-making visit that included all the elements required of such a visit including smoking cessation. The radiologist interpreting this exam meets the CMS criteria for the LDCT lung cancer screening program. The exam is reported using the Lung-RADS classification scale and reported to the ACR registry. NOTE: This study was performed for the specific purposes of lung cancer screening and is not an alternative to diagnostic chest CT. RADIATION DOSE: CTDI vol(CT dose Index-volume) = 2.90mG DLP (Dose Length Product) = 109.16 mGcm FINDINGS: Changes of COPD with centrilobular emphysema and scattered areas of scarring. No suspicious pulmonary nodules evident. There is evidence of old granulomatous disease. OTHER FINDINGS: 9 mm hypodensity in the hepatic dome air present a cyst.. There is an old left 7th rib fracture. IMPRESSION: Lung-RADS Category 1 Negative Follow-up: Continue annual screening with LDCT in 12 months Dictated by: Darrick Blackwell MD 04/18/2020 06:34 Darrick Blackwell MD in [place] 04/18/2020 06:34
== END ==
PROVIDERS: PCP Nurse Practitioner; Visit Provider Internal Medicine Pulmonary Disease
DX: Z87.891 Personal history of nicotine dependence (principal); Z12.2 Encounter for screening for malignant neoplasm of respiratory organs

== ENCOUNTER → 2020-04-09 14:21 | Outpatient (CLI) | payer OTHER, SELFPAY | PROVIDERS: PCP Nurse Practitioner; Visit Provider Internal Medicine Pulmonary Disease | DX: R06.09 Other forms of dyspnea (principal) | CPT/HCPCS: 94060; 94618; 94726; 94729 ==

== ENCOUNTER → 2020-04-28 19:40 | Outpatient (CLI) | payer OTHER, SELFPAY ==
[2020-04-30 11:53] LABS: Covid-19 Nasal PCR Sendout Lex Not Detected
== END ==
PROVIDERS: PCP Family Medicine; Visit Provider Nurse Practitioner Family
DX: Z03.818 Encounter for observation for suspected exposure to other biological agents ruled out (principal)
CPT/HCPCS: U0004

== ENCOUNTER 2020-05-25 15:31 | Emergency (ER) | payer OTHER, SELFPAY ==
[2020-05-25 16:10] VITALS: BP 145/93; PULSE 87; RESP 19; TEMP 36.9; O2SAT 98; BMI 30.7
--- NOTE | 2020-05-25 16:26 | HMH.EDUTC ---
[facility] [place] Clinical Impression: Exposure to COVID-19 virus Sinusitis Qualifiers: Sinusitis location: unspecified location Chronicity: unspecified Qualified Code(s): J32.9 - Chronic sinusitis, unspecified Disposition: Home, Self-Care Condition on Discharge: Good Instructions: DI for COVID-19 (Suspected or Confirmed ), COVID-19: Testing and Tracing, Preventing the Spread of Coronavirus Discharge Instructions, DI for Sinusitis, Sore Throat Additional Instructions: *Monitor Temp, Over the counter Motrin or Tylenol as directed/as needed Tylenol every 4 hours and Motrin every 6 hours (as long as your family doctor has told you that you can take it) for fever or pain. and straight to ER if unable to lower temp less than 101.0 after medication given *Warm salt water gargles may help to soothe the throat *Throat Lozenges *Warm fluids like tea with honey may help to soothe the throat *Sleep elevated *Humidifier/Vaporizer Follow up IMMEDIATELY for new or worsening symptoms or no Noticeable improvement over the next 48-72 hours. 911 for difficulty breathing or swallowing You were tested for today for COVID19 your test result should be back in the next 24-48 hours, you may call to the [facility] to see if your test results are back in the next 48 hours [phone] [facility] hours are 9am-9pm You was given a handout with instructions for Self Quarantine and Self isolation for while you wait on test results and what to do if they are positive If you are positive the Health Dept will be contacting you also Prescriptions: Amoxicillin/Potassium Clav [Augmentin 875-125 Tablet] 1 tab PO Q12H 7 Days #14 tab Transmission Status: Pending to [facility] Referrals: Young Méndez MD [Primary Care Provider] - As needed Forms: Work/School Release Time of Disposition: 16:35 Medical Decision Making - Chepe Inquiry Pt receiving controlled substance: No Chepe was queried for this patient: No Vital Signs: 05/25/20 16:10 Temperature 98.4 F Temperature Source Oral Pulse Rate [Right Brachial] 87 Respiratory Rate 19 Blood Pressure [Right Arm] 145/93 H Blood Pressure Mean [Right Arm] 110 Blood Pressure Source [Right Arm] Automatic Cuff Blood Pressure Position [Right Arm] Sitting 02 Sat by Pulse Oximetry 98 Oxygen Delivery Method Room Air - Lab Data Lab results reviewed: Yes: I reviewed the patient's lab results. Orders (Tests/Meds): ORDERS Category Date Time Status Covid-19 Nasal PCR ([facility]) Routine Lab 05/25/20 16:15 Received [facility] [place] HPI - General Stated complaint: Sore throat, cough, SOB, (exposure) Time Seen by Provider: 05/25/20 16:26 Mode of Arrival: Ambulatory Source of Information: Patient Limitations: No Limitations Description of Symptoms (Recalled from Triage Doc. by RN): PATIENT C/O SORE THROAT, BODY ACHES, SOA, HEADACHE SINCE YESTERDAY. 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 HEENT Symptoms (Recalled from RN notes): Yes Resp Symptoms (Recalled from RN notes): No Skin Symptoms (Recalled from RN notes): No MS Symptoms (Recalled from RN notes): No Functional Status (Recalled from RN notes): WNL - History of Present Illness Provider Complaint: Patient states that she was recently around someone that tested positive for COVID States that for several days she has had severe sore throat, sinus pain and pressure and pressure like feeling in her right ear States that today she wasnt feeling any better and unsure if she has a sinus infection, strep or covid and wanted to get tested - Related Data Home Medications Medication Instructions Recorded Confirmed Albuterol Sulfate [Proair Hfa 1 mcg INHALATION NEEDED PRN 08/08/17 04/28/20 90mcg/puff Inh] Diclofenac Sodium 50 mg PO TID 08/08/17 04/28/20 Budesonide/Formoterol Fumarate 2 puffs INHALATION DAILY 09/29/18 04/28/20 [Symbicort 160-4.5 Mcg Inhaler] Fluticasone Propionate 1 spray NS DAILY 09/29/18 04/28/20 Cetirizine HCl [Zyrtec] 10 mg PO DAILY 06
[2020-05-25 16:37] VITALS: BP 145/93; PULSE 87; RESP 19; TEMP 36.9; O2SAT 98
[2020-05-25 21:11] LABS: UTC Strep Screen (Rapid) Negative (Negative)
== END 2020-05-25 16:42 | disposition home or self-care (01) ==
PROVIDERS: Emergency Provider Nurse Practitioner; PCP Family Medicine
DX: Z20.822 Contact with and (suspected) exposure to COVID-19 (principal); J32.9 Chronic sinusitis, unspecified; J44.9 Chronic obstructive pulmonary disease, unspecified; I10 Essential (primary) hypertension; F17.210 Nicotine dependence, cigarettes, uncomplicated; Z79.899 Other long term (current) drug therapy
CPT/HCPCS: 87880; 99202; G0463; U0003

== ENCOUNTER 2020-07-13 14:49 | Emergency (ER) | payer OTHER, SELFPAY ==
[2020-07-13 15:28] VITALS: BP 145/67; PULSE 94; RESP 16; TEMP 36.5; O2SAT 98; BMI 29.5
--- NOTE | 2020-07-13 15:34 | HMH.EDUTC ---
[facility]ression: Bronchitis Disposition: Home, Self-Care Condition on Discharge: Good Instructions: Sinus Headache, DI for Sinusitis, DI for Bronchiolitis, Preventing the Spread of Coronavirus Discharge Instructions, DI for COVID-19 (Suspected or Confirmed ) Additional Instructions: Start antibiotic today. Be sure to complete entire prescription even if feeling better Tylenol and ibuprofen as needed for pain or fever Humidifier/vaporizer/hot steamy shower Follow-up with primary care tomorrow. Follow-up immediately in the ER of the [facility] for new or worsening symptoms or no noticeable improvement over the next 48-72 hours. Stop smoking self isolate until covid test results are known to be neg Prescriptions: Azithromycin [Zithromax 250mg tab] 250 mg PO DIRECTED #6 tab Prescription Printed Referrals: Young Méndez MD [Primary Care Provider] - Forms: Work/School Release Time of Disposition: 16:05 Medical Decision Making - Chepe Inquiry Pt receiving controlled substance: No Vital Signs: 07/13/20 15:28 Temperature 97.7 F Temperature Source Tympanic Pulse Rate [Left] 94 H Respiratory Rate 16 Blood Pressure [Right Radial Artery] 145/67 H Blood Pressure Mean [Right Radial Artery] 93 Blood Pressure Source [Right Radial Artery] Automatic Cuff Blood Pressure Position [Right Radial Artery] Sitting 02 Sat by Pulse Oximetry 98 Oxygen Delivery Method Room Air Orders (Tests/Meds): ORDERS Category Date Time Status Covid-19 Nasal PCR ([facility]) Routine Lab 07/13/20 15:40 Or[place] [facility] [place] - General Chief complaint: [facility] Stated complaint: tired, headache Time Seen by Provider: 07/13/20 15:34 Mode of Arrival: Ambulatory Source of Information: Patient Limitations: No Limitations Description of Symptoms (Recalled from Triage Doc. by RN): FATIGUE, EDWARDS, FEVER, AND SOA. 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 - Related Data Home Medications Medication Instructions Recorded Confirmed Albuterol Sulfate [Proair Hfa 1 mcg INHALATION NEEDED PRN 08/08/17 04/28/20 90mcg/puff Inh] Diclofenac Sodium 50 mg PO TID 08/08/17 04/28/20 Budesonide/Formoterol Fumarate 2 puffs INHALATION DAILY 09/29/18 04/28/20 [Symbicort 160-4.5 Mcg Inhaler] Fluticasone Propionate 1 spray NS DAILY 09/29/18 04/28/20 Cetirizine HCl [Zyrtec] 10 mg PO DAILY 11/04/19 04/28/20 diazepam 2 mg tablet 2 mg PO tab 03/22/20 04/28/20 lisinopril 20 1 tab PO tab 03/22/20 04/28/20 mg-hydrochlorothiazide 12.5 mg tablet Previous Rx's Medication Instructions Recorded Cyclobenzaprine HCl [Flexeril 10mg 10 mg PO TID PRN #15 tab 03/10/20 tablet] methylPREDNISolone [Medrol 4mg 4 mg PO DIRECTED #21 tab 03/10/20 tab] tiotropium bromide 1.25 2 puff INHALATION DAILY #4 g 03/22/20 mcg/actuation mist for inhalation azithromycin 250 mg tablet 250 mg PO QDAY 5 Days #6 tab 04/28/20 Amoxicillin/Potassium Clav 1 tab PO Q12H 7 Days #14 tab 05/25/20 [Augmentin 875-125 Tablet] Azithromycin [Zithromax 250mg 250 mg PO DIRECTED #6 tab 07/13/20 tab] Allergies Allergy/AdvReac Type Severity Reaction Status Date / Time No Known Allergies Allergy Verified 07/13/20 15:34 - Worker's Comp Is this a Worker's Comp case?: No [facility] History - Hepatitis A Screen Drug use history?: No High risk sexual behaviors?: No History of sexually transmitted infection?: No Currently employed?: No Childcare worker?: No Do you have indoor plumbing?: Yes D
[2020-07-13 16:12] VITALS: BP 140/70; PULSE 90; RESP 16; TEMP 36.4
[2020-07-14 10:22] LABS: UTC Influenza A Antigen Negative (Negative); UTC Strep Screen (Rapid) Negative (Negative)
[2020-07-14 10:24] LABS: UTC Influenza B Antigen Negative (Negative)
== END 2020-07-13 16:13 | disposition home or self-care (01) ==
PROVIDERS: Emergency Provider Nurse Practitioner Family; PCP Family Medicine
DX: Z20.822 Contact with and (suspected) exposure to COVID-19 (principal); J20.9 Acute bronchitis, unspecified; J44.9 Chronic obstructive pulmonary disease, unspecified; I10 Essential (primary) hypertension; F17.210 Nicotine dependence, cigarettes, uncomplicated; Z79.899 Other long term (current) drug therapy
CPT/HCPCS: 87804; 87880; 99202; G0463; U0003

== ENCOUNTER → 2020-07-27 17:32 | Outpatient (CLI) | payer OTHER, SELFPAY | PROVIDERS: PCP Family Medicine; Visit Provider Family Medicine | DX: G47.33 Obstructive sleep apnea (adult) (pediatric) (principal); I10 Essential (primary) hypertension; R40.0 Somnolence; R06.83 Snoring | CPT/HCPCS: 95806 ==

== ENCOUNTER → 2020-08-21 20:32 | Outpatient (CLI) | payer OTHER, SELFPAY ==
[2020-08-21 20:49] VITALS: BMI 35.5
== END ==
PROVIDERS: PCP Family Medicine; Visit Provider Nurse Practitioner Family
DX: M25.50 Pain in unspecified joint (principal)
CPT/HCPCS: 96372

== ENCOUNTER 2020-08-30 14:15 | Emergency (ER) | payer OTHER, SELFPAY ==
[2020-08-30 14:30] VITALS: BP 136/88; PULSE 87; RESP 19; TEMP 37; O2SAT 98; BMI 29.2
--- NOTE | 2020-08-30 14:49 | HMH.EDUTC ---
[facility] [place] Clinical Impression: Sinusitis Qualifiers: Sinusitis location: unspecified location Chronicity: unspecified Qualified Code(s): J32.9 - Chronic sinusitis, unspecified Disposition: Home, Self-Care Condition on Discharge: Good Instructions: Sinusitis Additional Instructions: *Monitor Temp, Over the counter Motrin or Tylenol as directed/as needed Tylenol every 4 hours and Motrin every 6 hours (as long as your family doctor has told you that you can take it) for fever or pain. and straight to ER if unable to lower temp less than 101.0 after medication given *Warm salt water gargles may help to soothe the throat *Throat Lozenges *Warm fluids like tea with honey may help to soothe the throat *Sleep elevated *Humidifier/Vaporizer Start antibiotic. Sinus infections may take 2-3 days to notice much improvement so be sure to use conservative measures as discussed for symptoms Flonase 2 spray in each nostril daily to help with nasal congestion, sinus an ear pressure/inflammation Lots of Fluids Augmentin can cause GI effects. Probiotics may help to prevent these symptoms Follow up with family doctor if no improvement or any worsening of symptoms Follow up IMMEDIATELY for new or worsening symptoms or no Noticeable improvement over the next 48-72 hours. 911 for difficulty breathing or swallowing Prescriptions: Amoxicillin/Potassium Clav [Augmentin 875-125 Tablet] 1 tab PO Q12H 10 Days #20 tab Transmission Status: Received by [facility] Referrals: Young Méndez MD [Primary Care Provider] - Time of Disposition: 14:59 Medical Decision Making - Chepe Inquiry Pt receiving controlled substance: No Chepe was queried for this patient: No Vital Signs: 08/30/20 14:30 Temperature 98.6 F Temperature Source Oral Pulse Rate [Right Brachial] 87 Respiratory Rate 19 Blood Pressure [Right Arm] 136/88 Blood Pressure Mean [Right Arm] 104 Blood Pressure Source [Right Arm] Automatic Cuff Blood Pressure Position [Right Arm] Sitting 02 Sat by Pulse Oximetry 98 Oxygen Delivery Method Room Air Orders (Tests/Meds): ED MEDICATIONS Discontinued Medications Generic Name Dose Route Start Last Admin Trade Name Freq PRN Reason Stop Dose Admin Methylprednisolone Sodium Succinate 125 mg 08/30/20 14:57 08/30/20 15:10 Methylprednisolone Sod Succ 125mg Vial IM 08/30/20 14:58 125 mg ONCE ONE Administration Medical Decision Narrative: Patient states that she has taken solu medrol injection in the past without complication or reaction [facility] [place] - General Stated complaint: SOB,Headache,Weakness Time Seen by Provider: 08/30/20 14:49 Mode of Arrival: Ambulatory Source of Information: Patient Limitations: No Limitations Description of Symptoms (Recalled from Triage Doc. by RN): PATIENT C/O SINUS PRESSURE, HEADACHE, CONGESTION, BODY ACHES, COUGH, AND SOA X 1 WEEK HEENT Symptoms (Recalled from RN notes): Yes Resp Symptoms (Recalled from RN notes): Yes Skin Symptoms (Recalled from RN notes): No MS Symptoms (Recalled from RN notes): No Functional Status (Recalled from RN notes): WNL - History of Present Illness Provider Complaint: Patient state that she has been having sinus pain and pressure, sore throat, cough, and headache for over a week State that feels like she may ahve a sinus infection State that today it wasnt any better so she came in States that feels like the pressure is moving into her teeth and feeling like it is trying to move into her chest area - Related Data Home Medications Medication Instructions Recorded Confirmed Albuterol Sulfate [Proair Hfa 1 mcg INHALATION NEEDED PRN 08/08/17 04/28/20 90mcg/puff Inh] Diclofenac Sodium 50 mg PO TID 08/08/17 04/28/20 Budesonide/Formoterol Fumarate 2 puffs INHALATION DAILY 09/29/18 04/28/20 [Symbicort 160-4.5 Mcg Inhaler] Fluticasone Propionate 1 spray NS DAILY 09/29/18 04/28/20 Cetirizine HCl [Zyrtec] 10 mg PO DAILY 11/04/19
[2020-08-30 15:18] VITALS: BP 136/88; PULSE 87; RESP 19; TEMP 37; O2SAT 98
== END 2020-08-30 15:21 | disposition home or self-care (01) ==
PROVIDERS: Emergency Provider Nurse Practitioner; PCP Family Medicine
DX: J32.9 Chronic sinusitis, unspecified (principal); I10 Essential (primary) hypertension; J44.9 Chronic obstructive pulmonary disease, unspecified; F17.210 Nicotine dependence, cigarettes, uncomplicated; F41.9 Anxiety disorder, unspecified; Z79.899 Other long term (current) drug therapy
CPT/HCPCS: 96372; 99202; G0463

== ENCOUNTER 2020-10-24 00:57 | Emergency (ER) | payer OTHER, SELFPAY ==
[2020-10-24 00:59] VITALS: BP 134/81; PULSE 101; RESP 16; TEMP 36.8; O2SAT 96; BMI 29.5
--- NOTE | 2020-10-24 01:09 | XR_ITS ---
PROCEDURE INFORMATION: Exam: XR Left Forearm Exam date and time: 10/24/2020 1:09 AM Age: 55 years old Clinical indication: Injury or trauma; Blunt trauma (contusions or hematomas); Arm, lower; Patient HX: Fall, landed on left elbow TECHNIQUE: Imaging protocol: XR Left forearm. Views: 2 views. COMPARISON: No relevant prior studies available. FINDINGS: Bones/joints: Normal. Soft tissues: Normal. IMPRESSION: No acute findings.
--- NOTE | 2020-10-24 01:09 | XR_ITS ---
PROCEDURE INFORMATION: Exam: XR Left Elbow Exam date and time: 10/24/2020 1:09 AM Age: 55 years old Clinical indication: Injury or trauma; Blunt trauma (contusions or hematomas); Patient HX: Fall, landed on left elbow TECHNIQUE: Imaging protocol: XR Left elbow. Views: 3 or more views. COMPARISON: No relevant prior studies available. FINDINGS: Bones/joints: There is a very subtle cortical break demonstrated is the proximal radius which does not extend into the radial head. A tiny impaction fracture is suspected. No other fracture is seen. No significant joint effusion. Soft tissues: Normal. IMPRESSION: There is a very subtle cortical break demonstrated is the proximal radius which does not extend into the radial head. A tiny impaction fracture is suspected. No other fracture is seen. No significant joint effusion.
--- NOTE | 2020-10-24 01:13 | HMH.EDUPEXT ---
ED Disposition Clinical Impression: Radial head fracture Qualifiers: Encounter type: initial encounter Fracture type: closed Fracture alignment: nondisplaced Laterality: left Qualified Code(s): S52.125A - Nondisplaced fracture of head of left radius, initial encounter for closed fracture Disposition: Home, Self-Care Condition on Discharge: Good Instructions: DI for Elbow Fracture Additional Instructions: ice and advil/tyenol and see ortho Referrals: Young Méndez MD [Primary Care Provider] - Maceij Daniels MD [Staff Physician] - - Critical Care Critical Care Time: No Attestation: On , the high probability of a clinically significant, sudden or life threatening deterioration of the following system(s) required my full and direct attention, intervention and personal management. The time I documented below is in addition to time spent performing reported procedures but includes the following listed in this critical care notation. Medical Decision Making - Medical Records Medical records reviewed: Yes: I reviewed the patient's medical records. - Chepe Inquiry Pt receiving controlled substance: No Vital Signs: 10/24/20 00:59 Temperature 98.2 F Temperature Source Oral Pulse Rate [Left Radial] 101 H Respiratory Rate 16 Blood Pressure [Right Arm] 134/81 Blood Pressure Mean [Right Arm] 98 Blood Pressure Source [Right Arm] Automatic Cuff Blood Pressure Position [Right Arm] Sitting 02 Sat by Pulse Oximetry 96 Oxygen Delivery Method Room Air - Lab Data Lab results reviewed: Yes: I reviewed the patient's lab results. Orders (Tests/Meds): ORDERS Category Date Time Status XR elbow LT min 3V Stat Exams 10/24/20 01:09 Taken XR forearm LT 2V Stat Exams 10/24/20 01:09 Taken - Radiology Data #1 Image(s): Elbow, Forearm Image Reviewed: Yes I reviewed the patient's radiology image Preliminary Findings: Abnormal (radial fx ) Upper Extremity HPI - General Stated Complaint: AO 10/24/20 2330 injury tyo left elbow and arm Time Seen by Provider: 10/24/20 01:05 Mode of Arrival: Ambulatory Source of Information: Patient, Spouse, Medical Record Limitations: No Limitations Description of Symptoms (Recalled from ER Triage Doc. by RN): Pt slipped on some gravel and landed on her left arm. No obvious deformity. Pt has good ROM and is able to flex and extend wrist. She states she has pain in left wrist up to her elbow. - History of Present Illness HPI narrative: tripped injury with lt elbow and forearm complaint: injury to: left, elbow, forearm Onset (ago): hour(s) Other Extremity Injury: Left: elbow, forearm Other injuries: none Handedness: right Place: home Context: fall - Related Data Home Medications Medication Instructions Recorded Confirmed Albuterol Sulfate [Proair Hfa 1 mcg INHALATION NEEDED PRN 08/08/17 04/28/20 90mcg/puff Inh] Diclofenac Sodium 50 mg PO TID 08/08/17 04/28/20 Budesonide/Formoterol Fumarate 2 puffs INHALATION DAILY 09/29/18 04/28/20 [Symbicort 160-4.5 Mcg Inhaler] Fluticasone Propionate 1 spray NS DAILY 09/29/18 04/28/20 Cetirizine HCl [Zyrtec] 10 mg PO DAILY 11/04/19 04/28/20 diazepam 2 mg tablet 2 mg PO tab 03/22/20 04/28/20 lisinopril 20 1 tab PO tab 03/22/20 04/28/20 mg-hydrochlorothiazide 12.5 mg tablet Previous Rx's Medication Instructions Recorded Cyclobenzaprine HCl [Flexeril 10mg 10 mg PO TID PRN #15 tab 03/10/20 tablet] tiotropium bromide 1.25 2 puff INHALATION DAILY #4 g 03/22/20 mcg/actuation mist for inhalation Allergies Allergy/AdvReac Type Severity Reaction Status Date / Time No Known Allergies Allergy Verified 07/13/20 15:34 [facility] History - Hepatitis A Screen Drug use history?: No High risk sexual behaviors?: No History of sexually transmitted infection?: No Currently employed?: No Childcare worker?: No Do you have indoor plumbing?: Yes Do you have electricity?: Yes Attestation statement:: T
[2020-10-24 01:30] VITALS: BP 131/79; PULSE 94; O2SAT 96
[2020-10-24 02:02] VITALS: BP 136/74; PULSE 78; RESP 18; TEMP 36.7; O2SAT 98
== END 2020-10-24 02:05 | disposition home or self-care (01) ==
PROVIDERS: Emergency Provider Emergency Medicine; PCP Family Medicine
DX: S52.125A Nondisplaced fracture of head of left radius, initial encounter for closed fracture (principal); W01.0XXA Fall on same level from slipping, tripping and stumbling without subsequent striking against object, initial encounter; Y92.9 Unspecified place or not applicable; I10 Essential (primary) hypertension; J44.9 Chronic obstructive pulmonary disease, unspecified; F41.9 Anxiety disorder, unspecified; Z79.899 Other long term (current) drug therapy; F17.210 Nicotine dependence, cigarettes, uncomplicated
CPT/HCPCS: 73080; 73090; 99283

== ENCOUNTER → 2020-11-08 18:54 | Outpatient (CLI) | payer OTHER, SELFPAY ==
--- NOTE | 2020-11-08 19:08 | XR_ITS ---
PROCEDURE: XR ELBOW LT MIN 3V CLINICAL INDICATION: left radial head fracture fu Follow-up fracture COMPARISON: CR XR ELBOW RT MIN 3V from 01/27/2019 CR XR ELBOW LT MIN 3V from 10/24/2020 FINDINGS: Nondisplaced fracture involves the radial neck with minimal impaction of the fracture fragments. The fracture slightly more prominent compared to the previous exam. There has been some improvement in the displaced anterior fat pad. The joint spaces are well-preserved. No significant degenerative/arthritic changes. No erosive changes evident. IMPRESSION: Nondisplaced radial neck fracture with slight increase impaction of the fracture Dictated by: Darrick Blackwell MD 11/09/2020 16:03 Darrick Blackwell MD in [place] 11/09/2020 16:03
== END ==
PROVIDERS: PCP Family Medicine; Visit Provider Orthopaedic Surgery
DX: S52.122A Displaced fracture of head of left radius, initial encounter for closed fracture (principal)
CPT/HCPCS: 73080

== ENCOUNTER 2020-11-24 01:02 | Emergency (ER) | payer OTHER, SELFPAY ==
[2020-11-24 01:02] VITALS: BP 133/81; PULSE 118; RESP 16; TEMP 36.8; O2SAT 98; BMI 32.5
[2020-11-24 01:27] VITALS: BP 158/78; PULSE 106; RESP 18; TEMP 36.7; O2SAT 96
--- NOTE | 2020-11-24 03:21 | HMH.EDNECK ---
ED Disposition Clinical Impression: Torticollis, acute Disposition: Home, Self-Care Condition on Discharge: Good Instructions: DI for Neck Pain Additional Instructions: heat and see pcp for follow up - Critical Care Critical Care Time: No Attestation: On , the high probability of a clinically significant, sudden or life threatening deterioration of the following system(s) required my full and direct attention, intervention and personal management. The time I documented below is in addition to time spent performing reported procedures but includes the following listed in this critical care notation. Medical Decision Making - Medical Records Medical records reviewed: Yes: I reviewed the patient's medical records. - Chepe Inquiry Pt receiving controlled substance: No Vital Signs: 11/24/20 01:02 Temperature 98.3 F Temperature Source Oral Pulse Rate [Left Radial] 118 H Respiratory Rate 16 Blood Pressure [Right Arm] 133/81 Blood Pressure Mean [Right Arm] 98 Blood Pressure Source [Right Arm] Automatic Cuff Blood Pressure Position [Right Arm] Sitting 02 Sat by Pulse Oximetry 98 Oxygen Delivery Method Room Air Orders (Tests/Meds): ED MEDICATIONS Discontinued Medications Generic Name Dose Route Start Last Admin Trade Name Roni PRN Reason Stop Dose Admin Acetaminophen/Codeine Phosphate 1 rachel 11/24/20 01:20 Acetaminophen 300mg W/Codeine 30mg Take Home Pack (6) PO 11/24/20 01:21 ONCE ONE Dexamethasone Sodium Phosphate 8 mg 11/24/20 01:20 Dexamethasone 4mg/Ml 1ml Vial IV 11/24/20 01:21 ONCE ONE Diazepam 5 mg 11/24/20 01:20 Diazepam 5mg Tablet PO 11/24/20 01:21 ONCE ONE Ketorolac Tromethamine 60 mg 11/24/20 01:20 Ketorolac 60mg/2ml Vial IM 11/24/20 01:21 ONCE ONE Medical Decision Narrative: acute neck spasm w/o trauma Neck Pain/Injury HPI - General Chief Complaint: Neck Pain/Injury Stated Complaint: Neck Spasm Time Seen by Provider: 11/24/20 01:30 Source of Information: Patient, Medical Record Limitations: No Limitations Description of Symptoms (Recalled from ER Triage Doc. by RN): PT c/o spasms in her neck that started early today and have progressivly gotten work overnight. She denies radiating pain. Denies EDWARDS. Denies injury. - History of Present Illness HPI Narrative: lt sided neck pain today w/o fever or trauma MD complaint: neck pain Onset (ago): hour(s) Place: home Radiation: left lateral Severity: moderate Quality: sharp Duration: constant Associated symptoms: none - Related Data Home Medications Medication Instructions Recorded Confirmed Albuterol Sulfate [Proair Hfa 1 mcg INHALATION NEEDED PRN 08/08/17 11/09/20 90mcg/puff Inh] Diclofenac Sodium 50 mg PO TID 08/08/17 11/09/20 Budesonide/Formoterol Fumarate 2 puffs INHALATION DAILY 09/29/18 11/09/20 [Symbicort 160-4.5 Mcg Inhaler] Fluticasone Propionate 1 spray NS DAILY 09/29/18 11/09/20 Cetirizine HCl [Zyrtec] 10 mg PO DAILY 11/04/19 11/09/20 diazepam 2 mg tablet 2 mg PO tab 03/22/20 11/09/20 lisinopril 20 1 tab PO tab 03/22/20 11/09/20 mg-hydrochlorothiazide 12.5 mg tablet Previous Rx's Medication Instructions Recorded Cyclobenzaprine HCl [Flexeril 10mg 10 mg PO TID PRN #15 tab 03/10/20 tablet] tiotropium bromide 1.25 2 puff INHALATION DAILY #4 g 03/22/20 mcg/actuation mist for inhalation Allergies Allergy/AdvReac Type Severity Reaction Status Date / Time No Known Allergies Allergy Verified 11/09/20 14:26 [facility] History - Hepatitis A Screen Drug use history?: No High risk sexual behaviors?: No History of sexually transmitted infection?: No Currently employed?: No Childcare worker?: No Do you have indoor plumbing?: Yes Do you have electricity?: Yes Attestation statement:: This patient has been screened for Hepatitis A risk factors. I have reviewed the patient's past medical history: Yes Medical History: Haseeb
== END 2020-11-24 01:30 | disposition home or self-care (01) ==
LOC: ER 03:37
PROVIDERS: Emergency Provider Emergency Medicine; PCP Family Medicine
DX: M43.6 Torticollis (principal); M62.838 Other muscle spasm; J44.9 Chronic obstructive pulmonary disease, unspecified; I10 Essential (primary) hypertension; F17.210 Nicotine dependence, cigarettes, uncomplicated
CPT/HCPCS: 96372; 99281

== ENCOUNTER → 2020-12-06 21:31 | Outpatient (CLI) | payer OTHER, SELFPAY ==
--- NOTE | 2020-12-06 21:40 | XR_ITS ---
PROCEDURE: XR ELBOW LT MIN 3V CLINICAL INDICATION: left radial head fracture, out of splint COMPARISON: November 08, 2020 FINDINGS: Healing radial head fracture is noted. No evidence of malalignment. Bone density is normal. There is no cyst in live a dowling of the anterior or posterior fat pad to suggest joint effusion. Soft tissues are unremarkable. IMPRESSION: Healing radial head fracture. Dictated by: Gisella Daniels 12/07/2020 08:17 Gisella Daniels in [place] 12/07/2020 08:17
== END ==
PROVIDERS: PCP Family Medicine; Visit Provider Orthopaedic Surgery
DX: S52.132D Displaced fracture of neck of left radius, subsequent encounter for closed fracture with routine healing (principal)
CPT/HCPCS: 73080

== ENCOUNTER → 2020-12-30 15:05 | Outpatient (CLI) | payer OTHER, SELFPAY ==
[2020-12-30 15:21] LABS: Coronavirus 19, PCR Not Detected (NotDetected); Influenza A, PCR Not Detected (NotDetected); Influenza B, PCR Not Detected (NotDetected)
== END ==
PROVIDERS: PCP Family Medicine; Visit Provider Nurse Practitioner
DX: Z20.822 Contact with and (suspected) exposure to COVID-19 (principal)
CPT/HCPCS: U0003

== ENCOUNTER → 2021-02-01 10:36 | Outpatient (CLI) | payer OTHER, SELFPAY | PROVIDERS: PCP Family Medicine; Visit Provider Nurse Practitioner | DX: Z20.822 Contact with and (suspected) exposure to COVID-19 (principal) | CPT/HCPCS: C9803; U0003; U0005 ==

== ENCOUNTER → 2021-02-20 11:04 | Outpatient (CLI) | payer OTHER, SELFPAY ==
[2021-02-20 11:39] LABS: Influenza A, PCR Not Detected (NotDetected); Influenza B, PCR Not Detected (NotDetected)
[2021-02-20 12:18] LABS: Coronavirus 19, PCR Detected (NotDetected)
== END ==
PROVIDERS: PCP Family Medicine; Visit Provider Nurse Practitioner
DX: Z20.822 Contact with and (suspected) exposure to COVID-19 (principal); U07.1 COVID-19
CPT/HCPCS: C9803; U0003; U0005

== ENCOUNTER 2021-03-01 16:49 | Emergency (ER) | payer OTHER, SELFPAY ==
[2021-03-01 16:51] VITALS: BP 117/97; PULSE 97; RESP 18; TEMP 36.8; O2SAT 95; BMI 29.5
--- NOTE | 2021-03-01 17:34 | HMH.EDGENADL ---
ED Disposition Clinical Impression: COVID-19 virus infection Disposition: Home, Self-Care Condition on Discharge: Fair Instructions: DI for COVID-19 (Suspected or Confirmed ) Additional Instructions: COVID-19 Isolation: Isolate yourself for a MINIMUM of 10 days: What to do: Monitor your symptoms. If you have an emergency warning sign (including trouble breathing), seek emergency medical care immediately. Stay in a separate room from other household members, if possible. Use a separate bathroom, if possible. Avoid contact with other members of the household and pets. Don?t share personal household items, like cups, towels, and utensils. Wear a mask when around other people if able. You can be around others AFTER: 10 days since symptoms first appeared AND 24 hours with no fever without the use of fever-reducing medications AND Other symptoms of COVID-19 are improving Return to the emergency department if increasing shortness of breath. Referrals: Young Méndez MD [Primary Care Provider] - - Critical Care Critical Care Time: No Attestation: On 03/01/21, the high probability of a clinically significant, sudden or life threatening deterioration of the following system(s) required my full and direct attention, intervention and personal management. The time I documented below is in addition to time spent performing reported procedures but includes the following listed in this critical care notation. Medical Decision Making - Chepe Inquiry Pt receiving controlled substance: No Vital Signs: 03/01/21 16:51 Temperature 98.2 F Temperature Source Oral Pulse Rate [Right Radial] 97 H Respiratory Rate 18 Blood Pressure [Right Arm] 117/97 H Blood Pressure Mean [Right Arm] 103 Blood Pressure Source [Right Arm] Automatic Cuff 02 Sat by Pulse Oximetry 95 Oxygen Delivery Method Room Air Orders (Tests/Meds): ORDERS Category Date Time Status Chest XR 2 view (NOT portable) [XR chest 2V] Stat Exams 03/01/21 17:35 Taken - Radiology Data #1 Image(s): Chest Image Reviewed: Yes I reviewed the patient's radiology image Findings of COPD. No definite acute findings. - Reevaluation(s) Time: 18:29 Reevaluation #1: Sitting upright in a chair. Pulse ox 95 to 97% on room air. General Adult HPI - General Stated complaint: SOB,congestion Time Seen by Provider: 03/01/21 17:35 - History of Present Illness HPI narrative: Diagnosed with Covid on 02/20/2021. States she became symptomatic the evening prior. She says she just ended her isolation but is still not feeling well. She continues to have a cough and congestion. She says she ran fevers every day for the first week. States that last fever was on , 5 days ago. She has COPD. She says that she began taking amoxicillin on Sunday, 6 days ago when the congestion went from her head to her chest. She keeps a prescription of that at home for exacerbations of COPD. She says that she was told twice by nurses at Dr. Méndez's office that she was not a candidate for monoclonal antibody therapy because she had been vaccinated. She checks her pulse ox at home and is generally running above 95%. She has a nebulizer at home and also has 3 inhalers that she has been using. She says that she called Dr. Méndez's office yesterday because she was having increased congestion and difficulty breathing and they advised her to come to the emergency room. - Related Data Home Medications Medication Instructions Recorded Confirmed Albuterol Sulfate [Proair Hfa 1 mcg INHALATION NEEDED PRN 08/08/17 12/09/20 90mcg/puff Inh] Diclofenac Sodium 50 mg PO TID 08/08/17 12/09/20 Budesonide/Formoterol Fumarate 2 puffs INHALATION DAILY 09/29/18 12/09/20 [Symbicort 160-4.5 Mcg Inhaler] Fluticasone Propionate 1 spray NS DAILY 09/29/18 12/09/20 Cetirizine HCl [Zyrtec] 10 mg PO DAILY 11/04/19 12/09/20 diazepam 2 mg tablet 2 mg PO tab
--- NOTE | 2021-03-01 17:35 | XR_ITS ---
PROCEDURE INFORMATION: Exam: XR Chest Exam date and time: 03/01/2021 5:35 PM Age: 55 years old Clinical indication: Cough and shortness of breath; Smoker's cough; Patient HX: SOA; Cough; Covid; . History of copd; Smoker; Additional info: SOA, covid TECHNIQUE: Imaging protocol: XR of the chest. Views: 2 views. COMPARISON: CR XR CHEST 2V 11/05/2019 11:39 AM FINDINGS: Lungs: Hyperexpanded lung garibay consistent with COPD Pleural spaces: Unremarkable. No pleural effusion. No pneumothorax. Heart/Mediastinum: Unremarkable. No cardiomegaly. Bones/joints: Anterior cervical fusion IMPRESSION: Hyperexpanded lung garibay consistent with COPD
[2021-03-01 19:13] VITALS: BP 146/74; PULSE 93; RESP 16; TEMP 37.1; O2SAT 97
== END 2021-03-01 19:16 | disposition home or self-care (01) ==
PROVIDERS: Emergency Provider Emergency Medicine; PCP Family Medicine
DX: U07.1 COVID-19 (principal); J44.9 Chronic obstructive pulmonary disease, unspecified; I10 Essential (primary) hypertension; F41.9 Anxiety disorder, unspecified; F17.210 Nicotine dependence, cigarettes, uncomplicated
CPT/HCPCS: 71046; 99282

== ENCOUNTER 2021-03-10 20:09 | Emergency (ER) | payer OTHER, SELFPAY ==
[2021-03-10 20:11] VITALS: BP 137/90; PULSE 116; RESP 18; TEMP 37.3; O2SAT 97; BMI 28.9
[2021-03-10 20:30] VITALS: BP 137/90; PULSE 106
--- NOTE | 2021-03-10 20:55 | CT_ITS ---
PROCEDURE INFORMATION: Exam: CT Abdomen And Pelvis With Contrast Exam date and time: 03/10/2021 8:55 PM Age: 55 years old Clinical indication: Abdominal pain; Localized; Lower; Prior surgery; Surgery type: Gallbladder, tubal; Patient HX: Pelvis pain for 4hrs, low back pain TECHNIQUE: Imaging protocol: Computed tomography of the abdomen and pelvis with contrast. Total images: 327 Radiation optimization: All CT scans at this facility use at least one of these dose optimization techniques: automated exposure control; mA and/or kV adjustment per patient size (includes targeted exams where dose is matched to clinical indication); or iterative reconstruction. Contrast material: ISOVUE; Contrast volume: 75 ml; Contrast route: IV; COMPARISON: ABDPELWO CT abdomen pelvis wo con 09/29/2018 7:49 AM FINDINGS: Lungs: Mild-moderate emphysematous changes in the lung bases. Small rounded foci of peripheral alveolar density in both lower lobes posteriorly. This might represent subsegmental atelectasis, however mild early changes of multifocal pneumonia not excluded. Heart: Heart size normal. Mediastinal space: The visualized distal esophagus is largely contracted without gross abnormality. Liver: Normal contour. Well-circumscribed low-density lesion in the right hepatic lobe demonstrating benign CT features most consistent with hepatic cyst. No further imaging characterization/followup is required based on current consensus criteria. No intrahepatic biliary ductal dilatation. Gallbladder and bile ducts: Prior cholecystectomy with no significant dilatation of the common bile duct. Pancreas: Normal. No inflammatory changes or ductal dilation. Spleen: Normal. No splenomegaly. Adrenal glands: 13 mm left adrenal adenoma measuring -17 Hounsfield units on noncontrast scan 09/29/2018, unchanged. This does not require further assessment. Right adrenal gland is normal. Kidneys and ureters: Chronic left renal cortical scarring unchanged. Mild compensatory enlargement of the right kidney again noted. 5 mm nonobstructive left renal stone. No ureteral stones or hydronephrosis. There is a low-density circumscribed right renal cortical lesion suggesting renal cyst. No further imaging evaluation is required. Stomach and bowel: The stomach is unremarkable. The small bowel is nondilated with no gross abnormality. No acute colonic abnormalities. Appendix: The appendix is normal in caliber and demonstrates no evidence of appendicitis. Intraperitoneal space: No free fluid or air. Vasculature: Moderate atherosclerotic aortoiliac calcification without aneurysm. Lymph nodes: No adenopathy. Urinary bladder: Mild urinary bladder wall thickening with mild adjacent stranding. Correlate with UA for evidence of cystitis. Reproductive: Unremarkable as visualized. Bones/joints: No acute osseous abnormalities. Moderate disc degenerative changes L2-L3 with slight retrolisthesis. Grade 1 anterolisthesis L4-L5 with mild disc space narrowing, moderate bilateral facet hypertrophic changes, and moderate bilateral foraminal stenosis. Soft tissues: Small fatty umbilical hernia . No evidence of associated bowel herniation or strangulation. IMPRESSION: 1. Mild urinary bladder wall thickening with mild adjacent stranding. Correlate with UA for evidence of cystitis. 2. Grade 1 anterolisthesis and mild disc space narrowing with moderate facet hypertrophic changes bilaterally at L4-L5, and moderate bilateral foraminal stenosis. Moderate disc degenerative changes L2-L3 with slight degenerative retrolisthesis. 3. Patchy peripheral ground-glass alveolar opacities in the posterior lower lob
[2021-03-10 21:00] VITALS: BP 145/89; PULSE 102
[2021-03-10 21:07] LABS: Basophils # 0.1 K/mm3 (0-0.2); Basophils % 0.7 % (0.1-2.0); Eosinophils # 0.2 K/mm3 (0.0-0.4); Hematocrit 37.1 % (37.0-47.0); Hemoglobin 12.2 g/dL (12.2-16.2); Lymphocytes # 2.5 K/mm3 (0.7-4.5); Lymphocytes % 24.3 % (10-50); Mean Corpuscular Hemoglobin 31.5 pg (27.0-31.2); Mean Corpuscular Volume 95.6 fl (81-99); Mean Platelet Volume 8.3 fl (7.4-10.4); Monocytes # 0.6 K/mm3 (0.1-1.0); Monocytes % 5.6 % (1.7-9.3); Neutrophils # 6.8 K/mm3 (1.8-7.8); Neutrophils % 67.4 % (37.0-80.0); Platelet Count 449 K/mm3 (142-424); Red Blood Count 3.88 M/mm3 (4.20-5.40); Red Cell Distribution Width 13.7 % (11.5-17.5); White Blood Count 10.1 K/mm3 (4.8-10.8)
[2021-03-10 21:10] LABS: Lipase 75 U/L (23-300)
[2021-03-10 21:22] LABS: Chloride 107 mmol/L (98-107); Potassium 3.6 mmoL/L (3.5-5.1); Sodium 140 mmol/L (136-145)
[2021-03-10 21:25] LABS: Alanine Aminotransferase 11 U/L (12-78); Albumin Level 3.5 g/dl (3.5-5.0); Albumin/Globulin Ratio 1.3 (1.1-1.8); Alkaline Phosphatase 92 U/L (38-126); Anion Gap 7.6 mEq/L (5-15); Aspartate Amino Transferase 20 U/L (14-36); Blood Urea Nitrogen 7 mg/dl (7-17); Carbon Dioxide 29 mmol/L (22.0-30.0); Creatinine Clearance Estimated 145 mL/min (50-200); Estimated Glomerular Filt Rate 103 ml/min (>60); GFR (African American) 125 ML/MIN (>60); Globulin 2.8 g/dL (1.3-3.2); Total Protein,Serum 6.3 g/dl (6.3-8.2)
[2021-03-10 21:26] LABS: Calcium 8.8 mg/dl (8.4-10.2); Glucose 86 mg/dl (74-100)
[2021-03-10 21:27] LABS: Microscopic, Urine URINE MICROSCOPIC (MICROSCOPIC)
[2021-03-10 21:30] LABS: Appearance,Urine CLEAR (Clear); Bilirubin,Urine Negative (Negative); Blood, Urine Negative (Negative); Color,Urine STRAW (Yellow); Glucose,Urine (UA) Negative (Negative); Ketones,Urine Negative (Negative); Leukocyte Esterase,Urine Negative (Negative); Nitrate,Urine Negative (Negative); Protein,Urine Negative (Negative); Urobilinogen,Urine 0.2 EU/dl (0.2)
--- NOTE | 2021-03-10 21:34 | HMH.EDABDPAI ---
ED Disposition Clinical Impression: Cystitis Disposition: Home, Self-Care Condition on Discharge: Good Instructions: DI for Acute Abdominal Pain Prescriptions: Tamsulosin HCl [Flomax 0.4mg capsule] 0.4 mg PO HS #30 cap Transmission Status: Pending to [facility] Phenazopyridine HCl [Pyridium] 200 mg PO BID 10 Days #20 tab Transmission Status: Pending to [facility] Referrals: Young Méndez MD [Primary Care Provider] - - Critical Care Critical Care Time: No Attestation: On 03/10/21, the high probability of a clinically significant, sudden or life threatening deterioration of the following system(s) required my full and direct attention, intervention and personal management. The time I documented below is in addition to time spent performing reported procedures but includes the following listed in this critical care notation. Medical Decision Making - Chepe Inquiry Pt receiving controlled substance: No Vital Signs: 03/10/21 20:11 03/11/21 00:26 Temperature 99.1 F 98.3 F Temperature Source Oral Oral Pulse Rate 85 Pulse Rate [Right] 116 H Respiratory Rate 18 20 Blood Pressure 161/91 H Blood Pressure [Right Arm] 137/90 Blood Pressure Mean [Right Arm] 105 02 Sat by Pulse Oximetry 97 Oxygen Delivery Method Room Air - Lab Data Lab Results 03/10/21 20:42: WBC 10.1, RBC 3.88 L, Hgb 12.2, Hct 37.1, MCV 95.6, MCH 31.5 H, MCHC 33.0, RDW 13.7, Plt Count 449 H, MPV 8.3, Neut % (Auto) 67.4, Lymph % (Auto) 24.3, [place] % (Auto) 5.6, Eos % (Auto) 2.0, Baso % (Auto) 0.7, Neut # (Auto) 6.8, Lymph # (Auto) 2.5, [place] # (Auto) 0.6, Eos # (Auto) 0.2, Baso # (Auto) 0.1 03/10/21 20:42: Lipase 75 03/10/21 20:42: Sodium 140, Potassium 3.6, Chloride 107, Carbon Dioxide 29, Anion Gap 7.6, BUN 7, Creatinine 0.60, Estimated Creat Clear 145, Estimated GFR 103, Est GFR ( Amer) 125, Glucose 86, Calcium 8.8, Total Bilirubin < 0.1 L, AST 20, ALT 11 L, Alkaline Phosphatase 92, Total Protein 6.3, Albumin 3.5, Globulin 2.8, Albumin/Globulin Ratio 1.3 03/10/21 21:21: Urine Color Straw, Urine Appearance Clear, Urine pH 6.0, Ur Specific [place] 1.010, Urine Protein Negative, Urine Glucose (UA) Negative, Urine Ketones Negative, Urine Blood Negative, Urine Nitrate Negative, Urine Bilirubin Negative, Urine Urobilinogen 0.2, Ur Leukocyte Esterase Negative, Urine WBC Occasional, Ur Squamous Epith Cells Occasional, Urine Bacteria Trace Result diagrams: 03/10/21 20:42 03/10/21 20:42 Orders (Tests/Meds): ED MEDICATIONS Discontinued Medications Generic Name Dose Route Start Last Admin Trade Name Freq PRN Reason Stop Dose Admin Acetaminophen 650 mg 03/10/21 20:57 03/10/21 21:29 Acetaminophen 325mg Tab PO 03/10/21 20:58 650 mg ONCE ONE Administration Iopamidol 75 ml 03/10/21 22:03 03/10/21 22:04 Iopamidol-370 (76%);100ml Bottle IV 03/10/21 22:04 75 ml ONCE ONE Administration Phenazopyridine HCl 200 mg 03/10/21 23:45 03/10/21 23:47 Phenazopyridine 200mg Tablet PO 03/10/21 23:46 200 mg ONCE ONE Administration Sodium Chloride 10 ml 03/10/21 22:03 03/10/21 22:04 Sodium Chloride 0.9% 10ml Syr (Rad Only) IV 03/10/21 22:04 10 ml ONCE ONE Administration Tamsulosin HCl 0.4 mg 03/10/21 23:47 03/10/21 23:48 Tamsulosin 0.4mg Capsule PO 03/10/21 23:48 0.4 mg ONCE ONE Administration ORDERS Category Date Time Status Urine Culture Stat Micro 03/10/21 21:21 Received Medical Decision Narrative: Patient is a 55-year-old female presents emerged department chief complaint of lower abdominal pain. Differential diagnosis includes diverticulitis, pyelonephritis, cystitis, urinary tract infection, enteritis among others. Given this plan order CBC, CMP, UA, CT abdomen pelvis. Treat patient pain with acetaminophen while she is here in the emergency department as she had a tramadol prior to arriving. UA was grossly nonconcerning for an acute inner tract infection
[2021-03-10 21:37] LABS: Bilirubin,Total < 0.1 mg/dl (0.2-1.3)
[2021-03-10 21:39] LABS: Bacteria,Urine Trace /lpf; Squamous Epithelial Cell,Urine Occasional #/hpf (0-5); WBC,Urine Occasional #/hpf (0-3)
[2021-03-10 22:31] VITALS: BP 163/98; PULSE 92; O2SAT 94
[2021-03-10 23:01] VITALS: BP 156/89; PULSE 92; O2SAT 95
[2021-03-10 23:30] VITALS: BP 167/97; PULSE 91; O2SAT 94
[2021-03-11 00:26] VITALS: BP 161/91; PULSE 85; RESP 20; TEMP 36.8; O2SAT 95
== END 2021-03-11 00:38 | disposition home or self-care (01) ==
PROVIDERS: Emergency Provider Emergency Medicine; PCP Family Medicine
DX: N30.00 Acute cystitis without hematuria (principal); J44.9 Chronic obstructive pulmonary disease, unspecified; F41.9 Anxiety disorder, unspecified; I10 Essential (primary) hypertension; F17.210 Nicotine dependence, cigarettes, uncomplicated
CPT/HCPCS: 74177; 80053; 81001; 83690; 85025; 87086; 99283; Q9967

== ENCOUNTER 2021-05-03 10:25 | Emergency (ER) | payer OTHER, SELFPAY ==
[2021-05-03 10:26] VITALS: BP 185/105; PULSE 87; RESP 18; O2SAT 93
[2021-05-03 10:56] VITALS: BP 182/100; PULSE 83; RESP 18; O2SAT 93
[2021-05-03 11:02] VITALS: BP 182/102; PULSE 76; RESP 16; TEMP 36.9; O2SAT 95; BMI 29.5
--- NOTE | 2021-05-03 11:14 | HMH.EDGENADL ---
ED Disposition Clinical Impression: Hypertension, essential Disposition: Home, Self-Care Condition on Discharge: Good Instructions: DI for High Blood Pressure Additional Instructions: Begin taking your lisinopril/hydrochlorothiazide twice a day, take an extra dose today as soon as you obtain your medication from the clinic pharmacy after discharge from the emergency room. See Dr. Méndez in his office tomorrow morning at 11 AM. Return to the emergency department if symptoms worsen. Referrals: Young Méndez MD [Primary Care Provider] - - Critical Care Critical Care Time: No Attestation: On 05/03/21, the high probability of a clinically significant, sudden or life threatening deterioration of the following system(s) required my full and direct attention, intervention and personal management. The time I documented below is in addition to time spent performing reported procedures but includes the following listed in this critical care notation. Medical Decision Making - Chepe Inquiry Pt receiving controlled substance: No Vital Signs: 05/03/21 10:26 05/03/21 10:56 05/03/21 11:02 Temperature 98.4 F Temperature Source Oral Pulse Rate [Radial] 87 83 76 Respiratory Rate 18 18 16 Blood Pressure [Right Arm] 185/105 H 182/100 H 182/102 H Blood Pressure Mean [Right Arm] 131 127 128 Blood Pressure Source [Right Arm] Automatic Cuff Automatic Cuff Blood Pressure Position [Right Arm] Sitting Sitting 02 Sat by Pulse Oximetry 93 L 93 L 95 Oxygen Delivery Method Room Air Room Air Room Air 05/03/21 11:26 Temperature Temperature Source Pulse Rate [Radial] 83 Respiratory Rate 18 Blood Pressure [Right Arm] 206/117 H Blood Pressure Mean [Right Arm] 146 Blood Pressure Source [Right Arm] Automatic Cuff Blood Pressure Position [Right Arm] Sitting 02 Sat by Pulse Oximetry 93 L Oxygen Delivery Method Room Air - Lab Data Lab Results 05/03/21 11:29: WBC 8.8, RBC 4.12 L, Hgb 13.3, Hct 39.7, MCV 96.4, MCH 32.4 H, MCHC 33.6, RDW 13.5, Plt Count 257, MPV 8.1, Neut % (Auto) 80.0, Lymph % (Auto) 13.7, [place] % (Auto) 3.5, Eos % (Auto) 2.1, Baso % (Auto) 0.6, Neut # (Auto) 7.0, Lymph # (Auto) 1.2, [place] # (Auto) 0.3, Eos # (Auto) 0.2, Baso # (Auto) 0.1 05/03/21 11:29: Sodium 141, Potassium 3.3 L, Chloride 105, Carbon Dioxide 32 H, Anion Gap 7.3, BUN 6 L, Creatinine 0.60, Estimated Creat Clear 146, Estimated GFR 103, Est GFR ( Amer) 124, Glucose 92, Calcium 8.8, Troponin I < 0.01, NT-Pro-B Natriuret Pep 157 H Result diagrams: 05/03/21 11:29 05/03/21 11:29 Orders (Tests/Meds): ORDERS Category Date Time Status Troponin I Q3H Lab 05/03/21 14:15 Ordered Troponin I Q3H Lab 05/03/21 17:15 Ordered - Radiology Data #1 Image(s): Chest Image Reviewed: Yes I have reviewed radiologist's interpretation PROCEDURE: XR CHEST 2V CLINICAL HISTORY: chest tightness COMPARISON: CT CTAC CTA-CHEST from 05/25/2016 CR XR CHEST 2V from 03/15/2019 CR XR CHEST 2V from 11/05/2019 CR XR CHEST 2V from 03/01/2021 FINDINGS: The cardiomediastinal silhouette and pulmonary vascularity are within normal limits. There is hyperinflation with attenuation of the peripheral pulmonary vessels suggesting small airway disease. Minimal atelectatic changes are present in the CP angles. No lobar consolidation or collapse. No acute bony abnormalities. Bone plate is present along the lower cervical spine. IMPRESSION: Hyperinflation with attenuation of the peripheral pulmonary vessels consistent with small airway disease such as COPD, bronchitis, or asthma with minimal atelectatic changes in the CP angles. Dictated by: Darrick Blackwell MD 05/03/2021 12:07 Darrick Blackwell MD in OV 05/03/2021 12:07 - ECG Data Tracing #1 EKG interpreted by Luis Angel Sanchez MD: Rhythm: sinus Rate: 79 [place]: normal Ectopy: none Conduction: normal ST Segment Changes: none T Wave Changes: none Q Waves: none No evide
--- NOTE | 2021-05-03 11:22 | ECG_ITS ---
APPROVED REPORT Exam: Resting ECG HR:79 bpm ECG Measurements Heart Rate 79 AXES [place] 160 P 64 QRSd 86 QRS 37 QT 408 T 49 QTc 467 Conclusion Normal sinus rhythm Normal ECG Electronically signed by : Young Ponce MD 05/03/2021 17:55:03
[2021-05-03 11:26] VITALS: BP 206/117; PULSE 83; RESP 18; O2SAT 93
[2021-05-03 11:37] LABS: Basophils # 0.1 K/mm3 (0-0.2); Basophils % 0.6 % (0.1-2.0); Eosinophils # 0.2 K/mm3 (0.0-0.4); Eosinophils % 2.1 % (0.1-12.0); Hematocrit 39.7 % (37.0-47.0); Hemoglobin 13.3 g/dL (12.2-16.2); Lymphocytes # 1.2 K/mm3 (0.7-4.5); Lymphocytes % 13.7 % (10-50); Mean Corpuscular HGB Conc 33.6 g/dL (31.8-35.4); Mean Corpuscular Hemoglobin 32.4 pg (27.0-31.2); Mean Corpuscular Volume 96.4 fl (81-99); Mean Platelet Volume 8.1 fl (7.4-10.4); Monocytes # 0.3 K/mm3 (0.1-1.0); Monocytes % 3.5 % (1.7-9.3); Platelet Count 257 K/mm3 (142-424); Red Blood Count 4.12 M/mm3 (4.20-5.40); Red Cell Distribution Width 13.5 % (11.5-17.5); White Blood Count 8.8 K/mm3 (4.8-10.8)
[2021-05-03 11:42] LABS: Chloride 105 mmol/L (98-107); Potassium 3.3 mmoL/L (3.5-5.1); Sodium 141 mmol/L (136-145)
[2021-05-03 11:45] LABS: Anion Gap 7.3 mEq/L (5-15); Blood Urea Nitrogen 6 mg/dl (7-17); Calcium 8.8 mg/dl (8.4-10.2); Carbon Dioxide 32 mmol/L (22.0-30.0); Creatinine Clearance Estimated 146 mL/min (50-200); Estimated Glomerular Filt Rate 103 ml/min (>60); GFR (African American) 124 ML/MIN (>60); Glucose 92 mg/dl (74-100)
[2021-05-03 11:55] LABS: NT Pro Brain Natriuretic Pep. 157 pg/mL (0-125)
[2021-05-03 11:59] LABS: Troponin I < 0.01 ng/ml (0.00-0.034)
--- NOTE | 2021-05-03 12:57 | PC.NURSE ---
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
[2021-05-03 13:27] VITALS: BP 188/89; PULSE 81; RESP 17; TEMP 36.9; O2SAT 97
== END 2021-05-03 13:28 | disposition home or self-care (01) ==
LOC: UTC 10:30 → ER 10:59
PROVIDERS: Emergency Provider Emergency Medicine; PCP Family Medicine
DX: R07.89 Other chest pain (principal); I10 Essential (primary) hypertension; R51.9 Headache, unspecified; J44.9 Chronic obstructive pulmonary disease, unspecified; F17.210 Nicotine dependence, cigarettes, uncomplicated
CPT/HCPCS: 71046; 80048; 83880; 84484; 85025; 93005; 99284

== ENCOUNTER → 2021-05-10 07:40 | Outpatient (CLI) | payer OTHER, SELFPAY ==
--- NOTE | 2021-05-10 | CA_ITS ---
APPROVED REPORT EXAM: Comprehensive 2D, Doppler, and color-flow Echocardiogram Informatics Nurse: Ethel Varela RDCS Ht: 5 ft 9 in Wt: 196lbs BSA: 2.05 BP: 129/86 mmHg Indications: COPD, Smoker, SOA, HTN, CHF, Edema 2D Dimensions LVDs 3.02 cm LA Volume 37.70 mL LVOT 1.71 cm (M/F) 1.5-2.5 LA Volume Index [id number] mL/m2 (M/F) 16-34 M-Mode Dimensions RVDd 2.31 cm (0.9-2.6) LA Diam 3.05 cm (1.9-4.0) LVDd 5.16 cm (3.5-5.7) Ao Diam 2.67 cm (2.0-3.7) LVDs 2.92 cm (3.5-5.7) IVSd 0.78 cm (0.6-1.1) PWd 0.85 cm (0.6-1.1) EF (Teich) 74.20% EPSs 0.28 cm FS 43.40% EDV (Teich) 127.20 mL TAPSE 1.94 (<1.7) ESV (Teich) 32.80 mL LV Diastology E Decel Time 253.00 (160-240 msec) E/A Ratio 0.78 MED E' 8.20 (< 7 cm/sec) MED A' 10.40 cm/s E'/MED E' Ratio 7.33 (>14) LAT E' 7.60 (<10 cm/sec) LAT A' 10.70 cm/s E/LAT E' Ratio 7.91 (>14) Aortic Valve LVOT Max 90.00 (70-110 cm/s) LVOT VTI 17.11 cm AoV Peak Froylan. 136.00 (50-130 cm/s) AO Peak GR. 7.40 mmHg AO Mean GR. 3.90 (<5 mmHg) AO VTI 24.26 (18-25 cm) SCOTT (VTI) 1.62 (2.5-4.5 cm2) Mitral Valve MV E Max Froylan. 60.00 (40-130 cm/s) MV A Velocity 77.00 (40-130 cm/s) E/A Ratio 0.78 MV Decel. Time 253.00 (160-240 ms) MV PHT 74.00 ms Pulmonary Valve PV Peak Velocity 67.00 (50-150 cm/s) Tricuspid Valve TR P. Velocity 216.00 cm/s RAP Estimate 10.00 mmHg RVSP 28.60 mmHg Left Ventricle Left atrium is mildly enlarged, left ventricle is normal size, mild concentric left ventricular hypertrophy, visually estimated ejection fraction 55% with no regional wall motion abnormality, grade 1 diastolic dysfunction seen without tissue Doppler evidence of raise left atrial pressure. Right Ventricle Right atrium and right ventricle are normal size and contractility. Aortic Valve Aortic valve is minimally thickened and fibrosed, there is no aortic stenosis or aortic insufficiency. Mitral Valve Mitral valve is grossly normal, there is trace mitral regurgitation. Tricuspid Valve Tricuspid valve grossly normal, there is trace tricuspid regurgitation, tricuspid regurgitation jet velocity is inadequate for calculation of the right ventricular systolic pressure. Pulmonic Valve Pulmonic valve is poorly visualized. Great Vessels Aortic root is normal size. Inferior vena cava is poorly visualized. Pericardium No significant pericardial effusion noted. Conclusion 1. Mildly enlarged left atrium, normal left ventricular size, mild concentric left ventricular hypertrophy, visually estimated ejection fraction 55% with no regional wall motion abnormality, grade 1 diastolic dysfunction seen without tissue Doppler evidence of raise left atrial pressure. 2. Trace mitral and tricuspid regurgitation. 3. No significant pericardial effusion noted. 4. Inferior vena cava is poorly visualized. Electronically signed by : Harjinder Wilde MD 05/10/2021 19:43:54
== END ==
PROVIDERS: PCP Family Medicine; Visit Provider Family Medicine
DX: I50.31 Acute diastolic (congestive) heart failure (principal); I11.0 Hypertensive heart disease with heart failure
CPT/HCPCS: 93306

== ENCOUNTER → 2021-06-02 15:06 | Outpatient (POV) | payer OTHER, SELFPAY ==
--- NOTE | 2021-06-02 15:22 | HMH.PMCON ---
Assessment and Plan (1) Degenerative joint disease (DJD) of lumbar spine Status: Chronic Category: Medical Code(s): M47.816 - Spondylosis without myelopathy or radiculopathy, lumbar region (2) Lumbar radiculopathy Status: Chronic Category: Medical Code(s): M54.16 - Radiculopathy, lumbar region - Assessment and plan all Dx Assessment and Plan for all problems:: We will schedule patient for lumbar epidural steroid injection at L4-L5. She is not on any anticoagulation therapy. We will follow up with her after the injection for further evaluation. She has tried conservative therapies of physical therapy for more than 6 weeks and continues with home stretching. Possible side effects of corticosteroids have been discussed with the patient. Risks and benefits of the procedure have been explained to the patient. Patient would like to proceed with the procedure. Patient has been instructed to contact the clinic with any concerns before the next appointment. Dr. Hernandez has reviewed this note and agrees with this plan of care. This note was dictated using voice recognition software and make contain errors or omissions. HPI - Data of Consult Patient: new to practice Consult date: 06/02/21 Requesting Physician: Yolanda Boucher APRN - Consult Narrative Reason for consult: Low back pain History of present illness: Ms. Coughlin is a 56 year old female who presents today for consultation for consultation for low back pain. She is having pain in her low back area with radiation into lower extremities. She is having difficulty standing and walking due to significant pain. The pain does radiate into bilateral lower extremities. She denies any saddle anesthesia or any changes in bowel or bladder habit. She has tried conservative therapies of physical therapy for more than 6 weeks and continues with home stretching. She does have imaging today. CC: Yolanda Boucher APRN [facility] History I have reviewed the patient's past medical history: Yes Medical History: Reports:: Anxiety, Asthma, Chronic Obstructive Pulmonary Disease (COPD), Hypertension Denies:: Cancer, Diabetes Mellitus Type 1, Diabetes Mellitus Type 2, MRSA, Seizures *Have you ever received a pneumonia vaccine?: No *Have you received a flu vaccine this season?: Yes Other Medical History: Reports: Arthritis, Other. Denies: Blood Transfusion Reaction Laterality Cases: Right: Carpal Tunnel Release Other Surgeries: Yes: No Previous Surgery, Tubal Ligation, Other Amputation: No Fractures: Yes - *Social History Smoking Status: Current every day smoker Tobacco Type: cigarettes # Packs/Day (cigarettes): 1 Alcohol Intake: never Alcohol Intake Frequency:: holidays/special occasions only Substance Use Type: other *Occupational Status:: other Housing: house *Travel in the last 8 weeks: None - Psychiatric History Pschychiatric History:: Reports:: Anxiety Family Hx:: No significant family history Review of Systems - Review of Systems Review of Systems General: No recent weight changes, no fever, no sleep disturbances Respiratory: No cough, no shortness of air, no recurring pulmonary infections Cardiovascular/peripheral vascular: No chest pain, no palpitations, no edema, no shortness of breath Gastrointestinal: No new onset incontinence, normal bowel movements reported Genitourinary: No new onset incontinence Musculoskeletal: Low back pain with radiation into lower extremities Psychiatric: [Normal mood/affect] Neurological: [Denies weakness in extremities], [denies balance issues] Meds Home Medications Medication Instructions Recorded Confirmed Type Albuterol Sulfate [Proair Hfa 1 mcg INHALATION NEEDED PRN 08/08/17 12/09/20 History 90mcg/puff Inh] Diclofenac Sodium 50 mg PO TID 08/08/17 12/09/20 History Budesonide/Formoterol Fumarate 2 puffs INHALATION DAILY 09/29/18 12/09/20 History [Symbicort 160-4.5 Mcg Inhaler] Fluticasone P
[2021-06-02 15:44] VITALS: BP 137/89; PULSE 99; RESP 18; O2SAT 96; BMI 29.0
== END ==
PROVIDERS: Visit Provider Clinical Nurse Specialist Family Health
DX: M47.896 Other spondylosis, lumbar region (principal); M54.16 Radiculopathy, lumbar region
CPT/HCPCS: 99202; G0463

== ENCOUNTER → 2021-06-14 10:55 | Outpatient (CLI) | payer OTHER, SELFPAY | PROVIDERS: PCP Family Medicine; Visit Provider Nurse Practitioner | DX: Z20.822 Contact with and (suspected) exposure to COVID-19 (principal) | CPT/HCPCS: C9803; U0003; U0005 ==

== ENCOUNTER → 2021-07-05 03:11 | Outpatient (CLI) | payer OTHER, SELFPAY ==
[2021-07-05 03:29] VITALS: BMI 28.8
[2021-07-05 03:40] VITALS: BP 118/72; PULSE 68; RESP 18; TEMP 36.8; O2SAT 96
== END ==
LOC: ER 03:20 → INF 03:37
PROVIDERS: PCP Family Medicine; Visit Provider Emergency Medicine
DX: M54.50 Low back pain, unspecified (principal); M62.830 Muscle spasm of back
CPT/HCPCS: 96372; G0463

== ENCOUNTER 2021-07-08 14:52 | Day surgery (SDC) | payer OTHER, SELFPAY ==
[2021-07-08 14:56] VITALS: BP 139/75; BP 146/91; PULSE 110; PULSE 115; RESP 20; TEMP 37.1; O2SAT 97; BMI 29.0
[2021-07-08 15:06] VITALS: BP 149/86; PULSE 121; RESP 18; O2SAT 96
[2021-07-08 15:07] VITALS: BP 145/84; PULSE 125; RESP 20; O2SAT 96
--- NOTE | 2021-07-08 15:29 | HMH.PMPROC ---
- Procedure Date: 07/08/21 Time: 15:29 Anesthesiologist:: Gavin Hernandez MD Complications:: None Pre-procedure Diagnosis:: Degenerative disc disease of lumbar spine with lumbar radiculopathy symptoms Post-procedure Diagnosis:: Same Indications for Procedure:: Patient is a pleasant 56-year-old white female who we are treating for low back pain with lumbar radiculopathy symptoms. She has increasing pain in her back radiating into her left leg. We will plan on lumbar epidural steroid injection under fluoroscopy today. Procedure Details:: Informed consent was obtained and the risk and benefits of the procedure was explained to the patient. The patient was taken to the procedure room. The patient was placed prone on the procedure table. The patient was prepped and draped in sterile fashion. C-arm fluoroscopy was used to view the lumbar spine. Skin and subcutaneous tissues were anesthetized using lidocaine. I placed an 18-gauge epidural needle and advanced into the L4-L5 interspace using fluoroscopic guidance and [id number] to air. After confirmation of needle placement in the epidural space with dye I injected 2 mL of lidocaine 1.5% with Depo-Medrol 80 mg. Patient tolerated the procedure well with no complications. Plan and Disposition:: We will follow-up with her in 2 weeks. Will reevaluate her symptoms at that time.
== END 2021-07-08 15:30 | disposition home or self-care (01) ==
LOC: SC.PAINP 14:53
PROVIDERS: PCP Family Medicine; Visit Provider Anesthesiology
DX: M51.16 Intervertebral disc disorders with radiculopathy, lumbar region (principal); I10 Essential (primary) hypertension; J44.9 Chronic obstructive pulmonary disease, unspecified; J45.909 Unspecified asthma, uncomplicated
CPT/HCPCS: 62323; 76000; J1040; Q9966

== ENCOUNTER 2022-03-15 20:21 | Emergency (ER) | payer BC, SELFPAY ==
[2022-03-15 20:23] VITALS: BP 130/93; PULSE 94; RESP 16; TEMP 36.8; O2SAT 95; BMI 26.7
--- NOTE | 2022-03-15 21:18 | HMH.EDGENADL ---
Discharge Plan Disposition Patient Disposition: Home, Self-Care Condition: Good Prescriptions Prescriptions: New methocarbamol 750 mg tablet 750 mg PO Q8H PRN (Reason: pain) Qty: 90 0RF No Action lisinopril-hydrochlorothiazide 20-12.5 mg tablet 1 tab PO DAILY diazepam 2 mg tablet 2 mg PO DIRECTED Label Comments: TAKE ONE TABLET BY MOUTH EVERY DAY NEEDED MAY CAUSE DROWSINESS diclofenac sodium 50 MG tablet,delayed release (DR/EC) 50 mg PO TID albuterol sulfate 108 HFA aerosol inhaler 1 mcg inhalation NEEDED PRN (Reason: COPD) Label Comments: cetirizine 10 MG capsule 10 mg PO DAILY cyclobenzaprine 10 MG tablet 10 mg PO TID PRN (Reason: Muscle Spasm) Qty: 15 0RF tramadol 50 MG tablet 50 mg PO TID tiotropium bromide 4 GM mist 2 puff INHALATION DAILY fluticasone propionate 16 GM spray,suspension 1 spray NS DAILY Label Comments: INSTILL 1 SPRAY IN EACH NOSTRIL EVERY DAY budesonide-formoterol 10.2 GM HFA aerosol inhaler 2 puffs inhalation DAILY Label Comments: INHALE 2 PUFFS BY MOUTH TWICE DAILY * SHAKE WELL BEFORE USE * [place] AFTER EACH USE Referrals Follow up/Referrals: Alma Gross APRN [Primary Care Provider] - See instructions Activity Restrictions/Add. Instructions Additional Instructions/Restrictions: You were evaluated in the emergency department today and diagnosed with sciatica. Please crab picker your prescription at the pharmacy and take as needed for pain. You may also take Tylenol and Motrin. Follow-up with your primary care provider over the next 3 days. Return to the emergency department for any new or worsening symptoms. Clinical Impressions Clinical Impression: Low back pain with sciatica Instructions Patient Instructions: DI for Acute Pain -- Adult, DI for Back Pain With Sciatica Discharge ED Provider: Eliana Oliver General Adult HPI General Chief complaint: PAIN Stated complaint: PAIN IN UPPER LEFT LEG Time Seen by Provider: 03/15/22 20:32 Mode of Arrival: Ambulatory Source of Information: Patient Limitations: No Limitations Description of Symptoms (Recalled from ER Triage Doc. by RN): pt c/o lt hip pain that radiates down leg x 3 days. pt denies any fall or trauma History of Present Illness HPI narrative: This patient is a 56-year-old female with a history of COPD, chronic low back pain, sciatica, and recent right Achilles injury presented to the emergency department for evaluation of left-sided low back/hip pain radiating down her left leg. It is moderate and constant, worse with walking. She states that it has flared up since wearing the walking boot for her Achilles injury. She states that it feels similar to her prior bouts of sciatica. She denies any recent trauma or other concerns. She denies any infectious symptoms. She denies any saddle anesthesia, incontinence, retention, difficulty walking, or other concerns. Patient is requesting a Toradol and steroid shot, as she states that is what typically helps with her symptoms. Related Data Home Medications Medication Instructions Recorded Confirmed albuterol sulfate 90 mcg/actuation 1 mcg inhalation NEEDED PRN COPD 08/08/17 07/08/21 aerosol inhaler diclofenac sodium 50 mg 50 mg PO TID Pain 08/08/17 07/08/21 tablet,delayed release budesonide-formoterol HFA 160 2 puffs inhalation DAILY COPD 09/29/18 07/08/21 mcg-4.5 mcg/actuation aerosol inhaler fluticasone propionate 50 1 spray NS DAILY allergies 09/29/18 07/08/21 mcg/actuation nasal spray,suspension cetirizine 10 mg capsule 10 mg PO DAILY allergies 11/04/19 07/08/21 diazepam 2 mg tablet 2 mg PO DIRECTED Anxiety 03/22/20 07/08/21 lisinopril 20 1 tab PO DAILY blood pressure 03/22/20 07/08/21 mg-hydrochlorothiazide 12.5 mg tablet tiotropium bromide 1.25 2 puff inhalation DAILY COPD 07/08/21 07/08/21 mcg/actuation mist for inhalation tram
[2022-03-15 21:56] VITALS: BP 134/79; PULSE 87; RESP 16; TEMP 36.8; O2SAT 95
== END 2022-03-15 21:57 | disposition home or self-care (01) ==
PROVIDERS: Emergency Provider Emergency Medicine; PCP Nurse Practitioner Family
DX: M54.40 Lumbago with sciatica, unspecified side (principal); J44.9 Chronic obstructive pulmonary disease, unspecified; Z72.0 Tobacco use
CPT/HCPCS: 96372; 99283

== ENCOUNTER 2022-05-03 18:33 | Emergency (ER) | payer BC, SELFPAY ==
--- NOTE | 2022-05-03 19:17 | XR_ITS ---
PROCEDURE INFORMATION: Exam: XR Right Hip Exam date and time: 05/03/2022 7:20 PM Age: 57 years old Clinical indication: Patient HX: Right hip pain due to sciatica per patient. No known injury. TECHNIQUE: Imaging protocol: Radiologic exam of the Right hip. Views: 2 or 3 views hip with pelvis when performed. COMPARISON: CT ABDOMEN PELVIS W CON 03/10/2021 9:55 PM FINDINGS: Bones/joints: Bones appear mildly demineralized. There are no lytic skeletal lesions seen. No acute fracture or dislocation. Minimal narrowing of the right hip joint space. Chronic enthesopathy of the greater trochanters of both femurs. 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 Prominent lumbar degenerative changes are better seen on the prior CT. Soft tissues: No acute findings in the soft tissues. IMPRESSION: 1. No acute findings. 2. Minimal degenerative changes at the hip. 3. Prominent lumbar degenerative changes were better seen on the CT from 2020.
--- NOTE | 2022-05-03 19:17 | XR_ITS ---
PROCEDURE INFORMATION: Exam: XR Right Femur Exam date and time: 05/03/2022 7:22 PM Age: 57 years old Clinical indication: Thigh; Patient HX: Pain in right femur due to sciatica per patient. No known injury. TECHNIQUE: Imaging protocol: Radiologic exam of the Right femur. Views: 2 views. Four images received. COMPARISON: CR XR HIP RT 2-3V W/PELVIS 05/03/2022 7:20 PM FINDINGS: Bones/joints: Bones appear mildly demineralized. There are no lytic skeletal lesions seen. No acute fracture or dislocation. Minimal degenerative changes at the hip and knee. Small degenerative enthesophyte of the greater trochanter of the right femur, better seen on the prior CT from 2020. Soft tissues: No radiopaque foreign bodies. No pathologic soft tissue calcification. IMPRESSION: No acute findings.
--- NOTE | 2022-05-03 19:17 | XR_ITS ---
PROCEDURE INFORMATION: Exam: XR Right Knee Exam date and time: 05/03/2022 7:23 PM Age: 57 years old Clinical indication: Patient HX: Pain in right knee due to sciatica per patient. No known injury. TECHNIQUE: Imaging protocol: Radiologic exam of the Right knee. Views: 3 views. COMPARISON: CR XR FEMUR RT 2V 05/03/2022 7:22 PM FINDINGS: Bones/joints: Bones appear diffusely demineralized. No focal lytic lesions. No acute fracture or dislocation. Minimal narrowing of the knee joint space. Mild spurring of the medial tibial spine. A small superior patellar periarticular spur. Trace knee joint fluid visible, no significant effusion. Soft tissues: Medial soft tissue swelling at the knee. No radiopaque foreign bodies. No pathologic soft tissue calcification. Other findings: Overlying clothing artifacts. IMPRESSION: 1. No acute fracture or dislocation. 2. Osteopenia. 3. Minimal degenerative changes.
--- NOTE | 2022-05-03 19:37 | EXP.UTC ---
Discharge Plan Disposition Patient Disposition: Home, Self-Care Condition: Good Prescriptions Prescriptions: New cyclobenzaprine 10 mg Tablet 10 mg PO BID PRN (Reason: Muscle Spasm) Qty: 20 0RF methylprednisolone 4 mg Tablets,Dose Pack 4 mg PO DIRECTED Qty: 21 0RF No Action lisinopril-hydrochlorothiazide 20-12.5 mg tablet 1 tab PO DAILY diazepam 2 mg tablet 2 mg PO DIRECTED Label Comments: TAKE ONE TABLET BY MOUTH EVERY DAY NEEDED MAY CAUSE DROWSINESS diclofenac sodium 50 MG tablet,delayed release (DR/EC) 50 mg PO TID albuterol sulfate 108 HFA aerosol inhaler 1 mcg inhalation NEEDED PRN (Reason: COPD) Label Comments: cetirizine 10 MG capsule 10 mg PO DAILY cyclobenzaprine 10 MG tablet 10 mg PO TID PRN (Reason: Muscle Spasm) Qty: 15 0RF tramadol 50 MG tablet 50 mg PO TID tiotropium bromide 4 GM mist 2 puff INHALATION DAILY fluticasone propionate 16 GM spray,suspension 1 spray NS DAILY Label Comments: INSTILL 1 SPRAY IN EACH NOSTRIL EVERY DAY budesonide-formoterol 10.2 GM HFA aerosol inhaler 2 puffs inhalation DAILY Label Comments: INHALE 2 PUFFS BY MOUTH TWICE DAILY * SHAKE WELL BEFORE USE * [place] AFTER EACH USE methocarbamol 750 mg tablet 750 mg PO Q8H PRN (Reason: pain) Qty: 90 0RF Referrals Follow up/Referrals: Nya Shane MD [Primary Care Provider] - See instructions Activity Restrictions/Add. Instructions Additional Instructions/Restrictions: Go home and rest. It would be best if you rested tomorrow too. No heavy lifting. No twisting. Take the oral medications as directed. The muscle relaxer (cyclobenzaprine--Flexeril) will make you drowsy, so don't drive or operate heavy machinery after taking it. Don't start the oral steroids (medrol dose pack) until tomorrow, since you had the shots in here today. Follow up with your regular doctor. GO TO THE ER FOR ANY WORSENING SYMPTOMS OR CONCERN, ESPECIALLY BOWEL OR BLADDER ISSUES, SADDLE AREA NUMBNESS, FEVER, ETC Clinical Impressions Clinical Impression: Lumbar back pain with radiculopathy affecting right lower extremity Stand Alone Forms Stand Alone Forms: Work/School Release Instructions Patient Instructions: Lumbar Radiculopathy, DI for Lumbar Radiculopathy Discharge ED Provider: Domingo Abernathy [facility] General Stated complaint: Pain R Knee Time Seen by Provider: 05/03/22 19:36 History of Present Illness Provider Complaint: She c/o low back pain that radiates from her low back down the lateral aspect of her right leg to the area of her knee. She denies any falls or other recent injuries. She has a history of sciatica and states that it has felt like this in the past when it has flared up. Related Data Home Medications Medication Instructions Recorded Confirmed albuterol sulfate 90 mcg/actuation 1 mcg inhalation NEEDED PRN COPD 08/08/17 07/08/21 aerosol inhaler diclofenac sodium 50 mg 50 mg PO TID Pain 08/08/17 07/08/21 tablet,delayed release budesonide-formoterol HFA 160 2 puffs inhalation DAILY COPD 09/29/18 07/08/21 mcg-4.5 mcg/actuation aerosol inhaler fluticasone propionate 50 1 spray NS DAILY allergies 09/29/18 07/08/21 mcg/actuation nasal spray,suspension cetirizine 10 mg capsule 10 mg PO DAILY allergies 11/04/19 07/08/21 diazepam 2 mg tablet 2 mg PO DIRECTED Anxiety 03/22/20 07/08/21 lisinopril 20 1 tab PO DAILY blood pressure 03/22/20 07/08/21 mg-hydrochlorothiazide 12.5 mg tablet tiotropium bromide 1.25 2 puff inhalation DAILY COPD 07/08/21 07/08/21 mcg/actuation mist for inhalation tramadol 50 mg tablet 50 mg PO TID Pain 07/08/21 07/08/21 Previous Rx's Medication Instructions Recorded cyclobenzaprine 10 mg tablet 10 mg PO TID PRN Muscle Spasm #15 03/10/20 tabs methocarbamol 750 mg tablet 750 mg PO Q8H PRN pain #90 tabs 03/15/22 cyclobenzaprine 10
[2022-05-03 19:47] VITALS: BP 162/65; PULSE 92; RESP 18; TEMP 36.6; O2SAT 96; BMI 28.0
[2022-05-03 20:04] LABS: Coronavirus 19, PCR Not Detected (NotDetected); Influenza A, PCR Not Detected (NotDetected); Influenza B, PCR Not Detected (NotDetected)
[2022-05-03 20:27] VITALS: BP 162/65; PULSE 92; RESP 18; TEMP 36.6
== END 2022-05-03 20:30 | disposition home or self-care (01) ==
PROVIDERS: Emergency Provider Nurse Practitioner Family; PCP Family Medicine
DX: M54.16 Radiculopathy, lumbar region (principal)
CPT/HCPCS: 73502; 73552; 73562; 96372; 99213; C9803; G0463; U0003; U0005

== ENCOUNTER 2022-05-05 12:20 | Outpatient (RCR) | payer BC, SELFPAY | END 2022-05-05 13:30 | disposition home or self-care (01) | LOC: PT 12:20 | PROVIDERS: Visit Provider Nurse Practitioner Family | DX: M25.561 Pain in right knee (principal); M23.51 Chronic instability of knee, right knee | CPT/HCPCS: 97760 ==

== ENCOUNTER 2022-06-19 17:30 | Outpatient (RCR) | payer BC, SELFPAY ==
--- NOTE | 2022-05-22 09:06 | HMH.PTOPEV ---
PT Outpatient Evaluation Rehab PT Outpatient Evaluation Start: 05/22/22 08:48 Freq: Status: Active Protocol: Document 05/22/22 08:49 REZA (Rec: 05/22/22 09:06 PHOCYNTHIA [id number]) E-signed By Bello Coates, PT Outpatient Therapy Subjective History Subjective History This is the initial PT eval for Britney Coughlin 57 yowf who presents with c/o pain in the R knee x ~ 1 mos. Pt reports complex hx with prior R achilles tendon injury requiring prolonged cam walker wear and resulting L hip pain and exacerbation of chronic LBP. She now reports her R knee gave out and has been extremely painful since that time. She reports pain is much better today, but it worsens with prolonged standing, which she is required to do for work. She reports hx of OA and chronic LBP. Chief Complaint Pain Symptom Type Ache,Throb,Sharp Symptoms Relieved By Rest/Positioning Symptoms Aggravated By Physical Activity,Walking Prior Functional Limitations None Current Functional Limitations Standing,Walking Symptom Description Intermittent,Activity Dependent Level of pain today (0-10) 0 Pain scale - at its worst (0-10) 10 Hip/Knee Eval Gait Observation General Gait Pattern Observation Antalgic Gait Assistive Device Assistive Devices None / NA Palpation Tenderness right Knee Palpation Finding Tenderness Knee Palpation Overall Comment medial knee jt MMT Hip Flexion Strength Grade 4 Good Hip Abduction Strength Grade 4 Good Hip Adduction Strength Grade 4 Good Hip Extension Strength Grade 4 Good Knee Extension Strength Grade 4 Good Knee Flexion Strength Grade 4 Good ROM Knee Extension Active Range of Motion ( 0 degrees) Knee Flexion Active Range of Motion ( 0-128 degrees) Special Tests Hip Piriformis Test Negative Left,Negative Right Sciatic Nerve Tension Test Negative Left,Negative Right Hip Scouring (Quadrant) Test Negative Left,Negative Right Knee Anterior Drawer Test Negative Left,Negative Right Monroe 90/90 Test (PCL) Negative Left,Negative Right Knee Anterior Beena Test Negative Left,Negative Right Knee Valgus Stress Test Negative Left,Negative Right Knee Susannah
== END 2022-06-19 17:35 | disposition home or self-care (01) ==
LOC: PT 17:30
PROVIDERS: PCP Family Medicine; Visit Provider Orthopaedic Surgery
DX: M25.561 Pain in right knee (principal); M79.9 Soft tissue disorder, unspecified
CPT/HCPCS: 97035; 97110; 97163

== ENCOUNTER 2022-06-30 14:30 | Emergency (ER) | payer BC, SELFPAY ==
[2022-06-30 14:40] VITALS: BP 161/117; PULSE 100; RESP 14; TEMP 36.6; O2SAT 98; BMI 26.9
--- NOTE | 2022-06-30 14:57 | ECG_ITS ---
APPROVED REPORT Exam: Resting ECG HR:82 bpm ECG Measurements Heart Rate 82 AXES VA 153 P 25 QRSd 86 QRS 21 QT 380 T 37 QTc 418 Conclusion SINUS RHYTHM NORMAL ECG UNCONFIRMED REPORT Electronically signed by : Young Ponce MD 07/01/2022 12:07:02
[2022-06-30 15:00] VITALS: BP 150/89; PULSE 85; RESP 14; O2SAT 97
--- NOTE | 2022-06-30 15:16 | PC.NURSE ---
ER AT BEDSIDE
--- NOTE | 2022-06-30 15:22 | HMH.EDGENADL ---
Discharge Plan Disposition Patient Disposition: Home, Self-Care Condition: Good Chief Complaint: Recheck/Abnormal Lab/Rx Prescriptions Prescriptions: No Action lisinopril-hydrochlorothiazide 20-12.5 mg tablet 1 tab PO DAILY diazepam 2 mg tablet 2 mg PO DIRECTED Label Comments: TAKE ONE TABLET BY MOUTH EVERY DAY NEEDED MAY CAUSE DROWSINESS diclofenac sodium 50 MG tablet,delayed release (DR/EC) 50 mg PO TID albuterol sulfate 108 HFA aerosol inhaler 1 mcg inhalation NEEDED PRN (Reason: COPD) Label Comments: cetirizine 10 MG capsule 10 mg PO DAILY cyclobenzaprine 10 MG tablet 10 mg PO TID PRN (Reason: Muscle Spasm) Qty: 15 0RF tramadol 50 MG tablet 50 mg PO TID tiotropium bromide 4 GM mist 2 puff INHALATION DAILY cyclobenzaprine 10 mg Tablet 10 mg PO BID PRN (Reason: Muscle Spasm) Qty: 20 0RF methylprednisolone 4 mg Tablets,Dose Pack 4 mg PO DIRECTED Qty: 21 0RF fluticasone propionate 16 GM spray,suspension 1 spray intranasal DAILY Label Comments: INSTILL 1 SPRAY IN EACH NOSTRIL EVERY DAY budesonide-formoterol 10.2 GM HFA aerosol inhaler 2 puffs inhalation DAILY Label Comments: INHALE 2 PUFFS BY MOUTH TWICE DAILY * SHAKE WELL BEFORE USE * [place] AFTER EACH USE methocarbamol 750 mg tablet 750 mg PO Q8H PRN (Reason: pain) Qty: 90 0RF Referrals Follow up/Referrals: Alma Gross APRN [Primary Care Provider] - See instructions Activity Restrictions/Add. Instructions Additional Instructions/Restrictions: Medication as directed. Follow-up orthopedics as scheduled. Return to ER for chest pain, shortness of breath, visual change Clinical Impressions Clinical Impression: Elevated blood pressure reading, Knee pain, right, Sciatica Discharge ED Provider: Josemanuel Gannon General Adult HPI General Chief complaint: Recheck/Abnormal Lab/Rx Stated complaint: high BP Time Seen by Provider: 06/30/22 15:00 Mode of Arrival: Ambulatory Source of Information: Patient Limitations: No Limitations Description of Symptoms (Recalled from ER Triage Doc. by RN): Pt was referred by Ortho due to high BP during appt today, 185/115. Hx of HTN. Compliant with medications. +pain (RLE). History of Present Illness HPI narrative: 57yo F presents to the emergency department secondary to elevated blood pressure at the orthopedist office. They would not see the patient because of her elevated blood pressure. Patient had no complaint. Related Data Home Medications Medication Instructions Recorded Confirmed albuterol sulfate 90 mcg/actuation 1 mcg inhalation NEEDED PRN COPD 08/08/17 06/30/22 aerosol inhaler diclofenac sodium 50 mg 50 mg PO TID Pain 08/08/17 06/30/22 tablet,delayed release budesonide-formoterol HFA 160 2 puffs inhalation DAILY COPD 09/29/18 06/30/22 mcg-4.5 mcg/actuation aerosol inhaler fluticasone propionate 50 1 spray intranasal DAILY allergies 09/29/18 06/30/22 mcg/actuation nasal spray,suspension cetirizine 10 mg capsule 10 mg PO DAILY allergies 11/04/19 06/30/22 diazepam 2 mg tablet 2 mg PO DIRECTED Anxiety 03/22/20 06/30/22 lisinopril 20 1 tab PO DAILY blood pressure 03/22/20 06/30/22 mg-hydrochlorothiazide 12.5 mg tablet tiotropium bromide 1.25 2 puff inhalation DAILY COPD 07/08/21 06/30/22 mcg/actuation mist for inhalation tramadol 50 mg tablet 50 mg PO TID Pain 07/08/21 06/30/22 Previous Rx's Medication Instructions Recorded cyclobenzaprine 10 mg tablet 10 mg PO TID PRN Muscle Spasm #15 03/10/20 tabs methocarbamol 750 mg tablet 750 mg PO Q8H PRN pain #90 tabs 03/15/22 cyclobenzaprine 10 mg tablet 10 mg PO BID PRN Muscle Spasm #20 05/03/22 tabs methylprednisolone 4 mg tablets in 4 mg PO DIRECTED #21 tabs 05/03/22 a dose pack Allergies Allergy/AdvReac Type Severity Reaction Status Date / Time No Known Allergies Allergy Verified 06/30/22 1
[2022-06-30 15:30] VITALS: BP 156/98; PULSE 86; RESP 14; O2SAT 96
[2022-06-30 15:42] VITALS: BP 156/98; PULSE 89; RESP 20; TEMP 36.4; O2SAT 96
== END 2022-06-30 15:42 | disposition home or self-care (01) ==
PROVIDERS: Emergency Provider Family Medicine; PCP Nurse Practitioner Family
DX: M54.31 Sciatica, right side (principal); M25.561 Pain in right knee; I10 Essential (primary) hypertension
CPT/HCPCS: 93005; 99283; 99284

== ENCOUNTER 2022-08-01 14:48 | Emergency (ER) | payer BC, SELFPAY ==
[2022-08-01 15:40] VITALS: BP 159/93; PULSE 96; RESP 22; TEMP 36.8; O2SAT 96; BMI 26.9
--- NOTE | 2022-08-01 16:18 | EXP.UTC ---
Discharge Plan Disposition Patient Disposition: Home, Self-Care Condition: Good Prescriptions Prescriptions: New benzonatate 100 mg capsule 100 mg PO TID PRN (Reason: cough) Qty: 30 0RF methylprednisolone [Medrol (Je)] 4 mg tablets,dose pack See Rx Instructions .Route .COMPLEX 6 Days Qty: 21 0RF Rx Instructions: taper pack; amoxicillin-pot clavulanate 875-125 mg Tablet 1 tab PO Q12H Qty: 20 0RF No Action lisinopril-hydrochlorothiazide 20-12.5 mg tablet 1 tab PO DAILY diazepam 2 mg tablet 2 mg PO DIRECTED Label Comments: TAKE ONE TABLET BY MOUTH EVERY DAY NEEDED MAY CAUSE DROWSINESS diclofenac sodium 50 MG tablet,delayed release (DR/EC) 50 mg PO TID albuterol sulfate 108 HFA aerosol inhaler 1 mcg inhalation NEEDED PRN (Reason: COPD) Label Comments: cetirizine 10 MG capsule 10 mg PO DAILY cyclobenzaprine 10 MG tablet 10 mg PO TID PRN (Reason: Muscle Spasm) Qty: 15 0RF tramadol 50 MG tablet 50 mg PO TID tiotropium bromide 4 GM mist 2 puff INHALATION DAILY cyclobenzaprine 10 mg Tablet 10 mg PO BID PRN (Reason: Muscle Spasm) Qty: 20 0RF methylprednisolone 4 mg Tablets,Dose Pack 4 mg PO DIRECTED Qty: 21 0RF fluticasone propionate 16 GM spray,suspension 1 spray intranasal DAILY Label Comments: INSTILL 1 SPRAY IN EACH NOSTRIL EVERY DAY budesonide-formoterol 10.2 GM HFA aerosol inhaler 2 puffs inhalation DAILY Label Comments: INHALE 2 PUFFS BY MOUTH TWICE DAILY * SHAKE WELL BEFORE USE * [place] AFTER EACH USE methocarbamol 750 mg tablet 750 mg PO Q8H PRN (Reason: pain) Qty: 90 0RF Referrals Follow up/Referrals: Alma Gross APRN [Primary Care Provider] - See instructions Activity Restrictions/Add. Instructions Additional Instructions/Restrictions: *Monitor Temp, Over the counter Motrin or Tylenol as directed/as needed Tylenol every 4 hours and Motrin every 6 hours (as long as your family doctor has told you that you can take it) for fever or pain. and straight to ER if unable to lower temp less than 101.0 after medication given *Warm salt water gargles may help to soothe the throat *Throat Lozenges? *Warm fluids like tea with honey may help to soothe the throat? *Sleep elevated *Humidifier/Vaporizer Follow up IMMEDIATELY for new or worsening symptoms or no Noticeable improvement over the next 48-72 hours. 911 for difficulty breathing or swallowing Clinical Impressions Clinical Impression: Sinusitis Stand Alone Forms Stand Alone Forms: Work/School Release Instructions Patient Instructions: DI for Sinusitis, Sinusitis Discharge ED Provider: Aiyana Perez [facility] [place] General Stated complaint: sinus pressure, runny nose, EDWARDS, soa, Rt ear pain Mode of Arrival: Ambulatory Source of Information: Patient Limitations: No Limitations Time Seen by Provider: 08/01/22 16:18 Description of Symptoms (Recalled from Triage Doc. by RN): PATIENT C/O SINUS PRESSURE, NASAL CONGESTION, SNEEZING, COUGH, SOA, TIRED AND BODY ACHES SINCE SUNDAY NIGHT HEENT Symptoms (Recalled from RN notes): Yes Resp Symptoms (Recalled from RN notes): No Skin Symptoms (Recalled from RN notes): No MS Symptoms (Recalled from RN notes): No Functional Status (Recalled from RN notes): WNL History of Present Illness Provider Complaint: Patient states that she has been having sinus pain and pressure along with drainage in the back of her throat, sneezing, cough and body aches States that she was at work and they sent her home States that she feels like she has a bad sinus infection again Related Data Home Medications Medication Instructions Recorded Confirmed albuterol sulfate 90 mcg/actuation 1 mcg inhalation NEEDED PRN COPD 08/08/17 07/14/22 aerosol inhaler diclofenac sodium 50 mg 50 mg PO TID Pain 08/08/17 07/14/22 tablet,delayed release budesonide-formot
[2022-08-01 16:45] VITALS: BP 159/93; PULSE 96; RESP 22; TEMP 36.8; O2SAT 96
== END 2022-08-01 16:48 | disposition home or self-care (01) ==
PROVIDERS: Emergency Provider Nurse Practitioner; PCP Nurse Practitioner Family
DX: J01.90 Acute sinusitis, unspecified (principal); R05.1 Acute cough; H92.01 Otalgia, right ear
CPT/HCPCS: 99212; 99214; G0463

== ENCOUNTER 2022-08-13 09:48 | Emergency (ER) | payer BC, SELFPAY ==
[2022-08-13 09:50] VITALS: BP 174/90; PULSE 114; RESP 28; TEMP 36.8; O2SAT 96; BMI 26.9
[2022-08-13 09:52] VITALS: BMI 27.3
--- NOTE | 2022-08-13 09:52 | XR_ITS ---
PROCEDURE INFORMATION: Exam: XR Chest Exam date and time: 08/13/2022 10:14 AM Age: 57 years old Clinical indication: Cough and shortness of breath; Additional info: Lung pain, cough TECHNIQUE: Imaging protocol: Radiologic exam of the chest. Views: 2 views. COMPARISON: CR XR CHEST 2V 05/03/2021 11:30 AM FINDINGS: Lungs: Unremarkable. No consolidation. Pleural spaces: Unremarkable. No pleural effusion. No pneumothorax. Heart/Mediastinum: Unremarkable. No cardiomegaly. Bones/joints: Partially visualized anterior cervical spine fusion hardware. IMPRESSION: No acute findings.
--- NOTE | 2022-08-13 10:07 | EXP.UTC ---
Discharge Plan Disposition Patient Disposition: Home, Self-Care Condition: Good Prescriptions Prescriptions: New promethazine-DM 6.25-15 mg/5 mL Syrup 5 ml PO Q6H PRN (Reason: Cough) Qty: 240 0RF prednisone 10 mg tablet 10 mg PO DIRECTED 9 Days Qty: 21 0RF Rx Instructions: Take 4 tablets daily for 3 days, then take 2 tablets daily for 3 days, then take 1 tablet daily for 3 days, then stop. levofloxacin [levofloxacin] 500 mg tablet 500 mg PO DAILY Qty: 7 0RF Probiotic 3 billion cell capsule 3,000 mmu cells PO DAILY 30 Days Qty: 30 0RF Rx Instructions: administer with a meal No Action lisinopril-hydrochlorothiazide 20-12.5 mg tablet 1 tab PO DAILY diclofenac sodium 50 MG tablet,delayed release (DR/EC) 50 mg PO TID albuterol sulfate 108 HFA aerosol inhaler 1 mcg inhalation NEEDED PRN (Reason: COPD) Label Comments: cetirizine 10 mg tablet 10 mg PO DAILY Label Comments: TAKE ONE TABLET BY MOUTH EVERY DAY hydrochlorothiazide 12.5 mg capsule 12.5 mg PO DAILY Label Comments: TAKE ONE CAPSULE BY MOUTH EVERY DAY IN THE MORNING Spiriva Respimat 2.5 mcg/actuation mist 2 puff INHALATION DAILY Label Comments: INHALE TWO PUFFS BY MOUTH ONCE A DAY budesonide-formoterol 10.2 GM HFA aerosol inhaler 2 puffs inhalation DAILY Label Comments: INHALE 2 PUFFS BY MOUTH TWICE DAILY * SHAKE WELL BEFORE USE * [place] AFTER EACH USE Referrals Follow up/Referrals: Alma Gross APRN [Primary Care Provider] - See instructions Activity Restrictions/Add. Instructions Additional Instructions/Restrictions: Drink plenty of fluids. Take tylenol or ibuprofen for pain or fever. Take the medications as directed. Follow up with your regular doctor. GO TO THE ER FOR ANY WORSENING SYMPTOMS Don't start the oral steroids until tomorrow, since you had the shot here today. The cough medication (promethazine dm) will make you drowsy, so don't drive or operate heavy machinery after taking it. Clinical Impressions Clinical Impression: COPD exacerbation Stand Alone Forms Stand Alone Forms: Work/School Release Instructions Patient Instructions: Acidophilus and Other Probiotics (Alternative Therapy), Chronic Obstructive Pulmonary Disease, DI for Chronic Obstructive Pulmonary Disease, Ceftriaxone Injection, Levofloxacin, Methylprednisolone Injection Discharge ED Provider: Domingo Abernathy [facility] [place] HPI General Stated complaint: lung pain, congestion, soa, cough, EDWARDS Mode of Arrival: Ambulatory Source of Information: Patient Limitations: No Limitations Time Seen by Provider: 08/13/22 10:07 Description of Symptoms (Recalled from Triage Doc. by RN): PATIENT C/O PRODUCTIVE COUGH, SOA, HEADACHE, AND WEAKNESS. SHE WAS TREATED FOR A SINUS INFECTION 12 DAYS AGO, AND STATES SHE THOUGHT SHE GETTING BETTER BUT THEN GOT WORSE HEENT Symptoms (Recalled from RN notes): Yes Resp Symptoms (Recalled from RN notes): Yes Skin Symptoms (Recalled from RN notes): No MS Symptoms (Recalled from RN notes): No Functional Status (Recalled from RN notes): WNL History of Present Illness Provider Complaint: She is back today with continued cough and congestion. She was here on about 14 days ago with similar symptoms. She states that the did get better while she was on the medication Related Data Home Medications Medication Instructions Recorded Confirmed albuterol sulfate 90 mcg/actuation 1 mcg inhalation NEEDED PRN COPD 08/08/17 08/13/22 aerosol inhaler diclofenac sodium 50 mg 50 mg PO TID Arthritis 08/08/17 08/13/22 tablet,delayed release budesonide-formoterol HFA 160 2 puffs inhalation DAILY COPD 09/29/18 08/13/22 mcg-4.5 mcg/actuation aerosol inhaler lisinopril 20 1 tab PO DAILY Hypertension 03/22/20 08/13/22 mg-hydrochlorothiazide 12.5 mg tablet cetirizine 10 mg tablet 10 mg PO DAILY Allergy symptoms 08/13/22
[2022-08-13 11:02] VITALS: BP 174/90; PULSE 114; RESP 24; TEMP 36.8; O2SAT 96
== END 2022-08-13 11:14 | disposition home or self-care (01) ==
PROVIDERS: Emergency Provider Nurse Practitioner Family; PCP Nurse Practitioner Family
DX: J44.1 Chronic obstructive pulmonary disease with (acute) exacerbation (principal); Z20.822 Contact with and (suspected) exposure to COVID-19
CPT/HCPCS: 96372; 71046; 99212; 99214; C9803; G0463; J0696; U0003; U0005

== ENCOUNTER 2022-10-05 08:32 | Emergency (ER) | payer BC, SELFPAY ==
[2022-10-05 08:36] VITALS: BP 182/101; PULSE 86; RESP 16; TEMP 36.7; O2SAT 95; BMI 27.3
--- NOTE | 2022-10-05 09:19 | EXP.UTC ---
Discharge Plan Disposition Patient Disposition: Home, Self-Care Condition: Good Prescriptions Prescriptions: New amoxicillin-pot clavulanate 875-125 mg Tablet 1 tab PO Q12H Qty: 14 0RF guaifenesin [Mucinex] 600 mg tablet extended release 12hr 600 mg PO BID PRN (Reason: cough) Qty: 20 0RF No Action lisinopril-hydrochlorothiazide 20-12.5 mg tablet 1 tab PO DAILY diclofenac sodium 50 MG tablet,delayed release (DR/EC) 50 mg PO TID albuterol sulfate 108 HFA aerosol inhaler 1 mcg inhalation NEEDED PRN (Reason: COPD) Label Comments: cetirizine 10 mg tablet 10 mg PO DAILY Label Comments: TAKE ONE TABLET BY MOUTH EVERY DAY hydrochlorothiazide 12.5 mg capsule 12.5 mg PO DAILY Label Comments: TAKE ONE CAPSULE BY MOUTH EVERY DAY IN THE MORNING Spiriva Respimat 2.5 mcg/actuation mist 2 puff INHALATION DAILY Label Comments: INHALE TWO PUFFS BY MOUTH ONCE A DAY promethazine-DM 6.25-15 mg/5 mL Syrup 5 ml PO Q6H PRN (Reason: Cough) Qty: 240 0RF prednisone 10 mg tablet 10 mg PO DIRECTED 9 Days Qty: 21 0RF Rx Instructions: Take 4 tablets daily for 3 days, then take 2 tablets daily for 3 days, then take 1 tablet daily for 3 days, then stop. levofloxacin [levofloxacin] 500 mg tablet 500 mg PO DAILY Qty: 7 0RF Probiotic 3 billion cell capsule 3,000 mmu cells PO DAILY 30 Days Qty: 30 0RF Rx Instructions: administer with a meal budesonide-formoterol 10.2 GM HFA aerosol inhaler 2 puffs inhalation DAILY Label Comments: INHALE 2 PUFFS BY MOUTH TWICE DAILY * SHAKE WELL BEFORE USE * [place] AFTER EACH USE Referrals Follow up/Referrals: Alma Gross APRN [Primary Care Provider] - See instructions Activity Restrictions/Add. Instructions Additional Instructions/Restrictions: *Monitor Temp, Over the counter Motrin or Tylenol as directed/as needed Tylenol every 4 hours and Motrin every 6 hours (as long as your family doctor has told you that you can take it) for fever or pain. and straight to ER if unable to lower temp less than 101.0 after medication given *Warm salt water gargles may help to soothe the throat *Throat Lozenges? *Warm fluids like tea with honey may help to soothe the throat? *Sleep elevated *Humidifier/Vaporizer Follow up IMMEDIATELY for new or worsening symptoms or no Noticeable improvement over the next 48-72 hours. 911 for difficulty breathing or swallowing You were tested for today for COVID19 your test result should be back in the next 24-48 hours, you may check your results on the [facility] Clinical Impressions Clinical Impression: Sinusitis Stand Alone Forms Stand Alone Forms: Work/School Release Instructions Patient Instructions: DI for Sinusitis, Sinusitis Discharge ED Provider: Aiyana Perez [facility] [place] General Stated complaint: Covid exposure, headache, cough, diarrhea Mode of Arrival: Ambulatory Source of Information: Patient Limitations: No Limitations Time Seen by Provider: 10/05/22 09:19 Description of Symptoms (Recalled from Triage Doc. by RN): pt c/o a cough, sneezing, EDWARDS, SOA, diarrhea and fatigue. pt states she finished a round of steroids and antibiotics last night. pt states she was exposed to covid and RSV at work. HEENT Symptoms (Recalled from RN notes): No Resp Symptoms (Recalled from RN notes): No Skin Symptoms (Recalled from RN notes): No MS Symptoms (Recalled from RN notes): No Functional Status (Recalled from RN notes): wnl History of Present Illness Provider Complaint: Patient states that she thinks she may have a sinus infection States that she has been having sinus congestion and pressure cough Edwards and had some diarrhea this morning states she was on steriods and finished them yesterday States that she was exposed to COVID and RSV at work and they wanted her to get tested before they would let her return Related Da
[2022-10-05 09:30] VITALS: BP 182/101; PULSE 86; RESP 16; TEMP -13.3; TEMP 8.1
== END 2022-10-05 09:36 | disposition home or self-care (01) ==
PROVIDERS: Emergency Provider Nurse Practitioner; PCP Nurse Practitioner Family
DX: J01.90 Acute sinusitis, unspecified (principal); R05.9 Cough, unspecified; R19.7 Diarrhea, unspecified
CPT/HCPCS: 87635; 99212; 99214; C9803; G0463; U0003; U0005

== ENCOUNTER 2022-10-17 20:09 | Emergency (ER) | payer BC, SELFPAY ==
[2022-10-17 20:10] VITALS: BP 169/73; PULSE 82; RESP 16; TEMP 36.8; O2SAT 99; BMI 27.3
[2022-10-17 20:30] VITALS: BP 163/81; PULSE 111; O2SAT 95
--- NOTE | 2022-10-17 22:48 | HMH.EDDENT ---
Discharge Plan Disposition Patient Disposition: Home, Self-Care Prescriptions Prescriptions: No Action lisinopril-hydrochlorothiazide 20-12.5 mg tablet 1 tab PO DAILY diclofenac sodium 50 MG tablet,delayed release (DR/EC) 50 mg PO TID albuterol sulfate 108 HFA aerosol inhaler 1 mcg inhalation NEEDED PRN (Reason: COPD) Label Comments: cetirizine 10 mg tablet 10 mg PO DAILY Label Comments: TAKE ONE TABLET BY MOUTH EVERY DAY hydrochlorothiazide 12.5 mg capsule 12.5 mg PO DAILY Label Comments: TAKE ONE CAPSULE BY MOUTH EVERY DAY IN THE MORNING Spiriva Respimat 2.5 mcg/actuation mist 2 puff INHALATION DAILY Label Comments: INHALE TWO PUFFS BY MOUTH ONCE A DAY promethazine-DM 6.25-15 mg/5 mL Syrup 5 ml PO Q6H PRN (Reason: Cough) Qty: 240 0RF prednisone 10 mg tablet 10 mg PO DIRECTED 9 Days Qty: 21 0RF Rx Instructions: Take 4 tablets daily for 3 days, then take 2 tablets daily for 3 days, then take 1 tablet daily for 3 days, then stop. levofloxacin [levofloxacin] 500 mg tablet 500 mg PO DAILY Qty: 7 0RF Probiotic 3 billion cell capsule 3,000 mmu cells PO DAILY 30 Days Qty: 30 0RF Rx Instructions: administer with a meal budesonide-formoterol 10.2 GM HFA aerosol inhaler 2 puffs inhalation DAILY Label Comments: INHALE 2 PUFFS BY MOUTH TWICE DAILY * SHAKE WELL BEFORE USE * [place] AFTER EACH USE amoxicillin-pot clavulanate 875-125 mg Tablet 1 tab PO Q12H Qty: 14 0RF guaifenesin [Mucinex] 600 mg tablet extended release 12hr 600 mg PO BID PRN (Reason: cough) Qty: 20 0RF Referrals Follow up/Referrals: Alma Gross APRN [Primary Care Provider] - See instructions Clinical Impressions Clinical Impression: Tooth abscess, Pain, dental Instructions Patient Instructions: DI for Dental Pain Discharge ED Provider: Dianelys DominguezED)[facility] HPI General Chief complaint: Dental/Oral Stated complaint: dental pain Time Seen by Provider: 10/17/22 22:48 Mode of Arrival: Ambulatory Source of Information: Patient and Medical Record Limitations: No Limitations Description of Symptoms (Recalled from ER Triage Doc. by RN): pt c/o lt bottom tooth pain. pt states was seen by dentisi today and placed on antibodics and to come back on sunday for tooth removal History of Present Illness HPI Narrative: pt with infected lower lt teeth - has seen dentist and on abx - increased pain and swelling tonight Complaint: tooth pain Onset (ago): day(s) Duration: constant Severity: moderate Context: history of dental caries Associated symptoms: gum swelling Treatment prior to arrival: recent dentist visit Related Data Home Medications Medication Instructions Recorded Confirmed albuterol sulfate 90 mcg/actuation 1 mcg inhalation NEEDED PRN COPD 08/08/17 08/13/22 aerosol inhaler diclofenac sodium 50 mg 50 mg PO TID Arthritis 08/08/17 08/13/22 tablet,delayed release budesonide-formoterol HFA 160 2 puffs inhalation DAILY COPD 09/29/18 08/13/22 mcg-4.5 mcg/actuation aerosol inhaler lisinopril 20 1 tab PO DAILY Hypertension 03/22/20 08/13/22 mg-hydrochlorothiazide 12.5 mg tablet cetirizine 10 mg tablet 10 mg PO DAILY Allergy symptoms 08/13/22 08/13/22 hydrochlorothiazide 12.5 mg capsule 12.5 mg PO DAILY Hypertension 08/13/22 08/13/22 tiotropium bromide 2.5 2 puff inhalation DAILY COPD 08/13/22 08/13/22 mcg/actuation mist for inhalation (Spiriva Respimat) Previous Rx's Medication Instructions Recorded lactobacillus combination no.4 3 3,000 mmu cells PO DAILY 30 days 08/13/22 billion cell capsule (Probiotic) #30 caps levofloxacin 500 mg tablet 500 mg PO DAILY #7 tabs 08/13/22 prednisone 10 mg tablet 10 mg PO DIRECTED 9 days #21 08/13/22 tabs promethazine-DM 6.25 mg-15 mg/5 mL 5 ml PO Q6H PRN Cough #240 mL 08/13/22 oral syrup amoxicillin 875 mg-potassium 1 tab PO Q12H #14
[2022-10-17 23:13] VITALS: BP 157/74; PULSE 94; RESP 16; TEMP 36.7; O2SAT 96
== END 2022-10-17 23:13 | disposition home or self-care (01) ==
PROVIDERS: Emergency Provider Emergency Medicine; PCP Nurse Practitioner Family
DX: R22.0 Localized swelling, mass and lump, head (principal); F17.210 Nicotine dependence, cigarettes, uncomplicated; K04.7 Periapical abscess without sinus
CPT/HCPCS: 96374; 96375; 99284; J0696; J2405

== ENCOUNTER 2023-01-12 08:00 | Emergency (ER) | payer BC, SELFPAY ==
[2023-01-12 08:01] VITALS: BP 147/96; PULSE 89; RESP 18; TEMP 36.8; O2SAT 98; BMI 30.2
--- NOTE | 2023-01-12 08:32 | EXP.UTC ---
Discharge Plan Disposition Patient Disposition: Home, Self-Care Condition: Good Prescriptions Prescriptions: New amoxicillin [amoxicillin] 875 mg tablet 875 mg PO Q12H Qty: 20 0RF benzonatate [benzonatate] 100 mg capsule 100 mg PO TIDP PRN (Reason: Cough) Qty: 30 0RF methylprednisolone 4 mg Tablets,Dose Pack 4 mg PO DIRECTED Qty: 21 0RF No Action lisinopril-hydrochlorothiazide 20-12.5 mg tablet 1 tab PO DAILY hydrocodone-acetaminophen 5-325 mg tablet 1 tab PO TID PRN (Reason: pain) Qty: 15 0RF diclofenac sodium 50 MG tablet,delayed release (DR/EC) 50 mg PO TID albuterol sulfate 108 HFA aerosol inhaler 1 mcg inhalation NEEDED PRN (Reason: COPD) Patient Comments: cetirizine 10 mg tablet 10 mg PO DAILY Patient Comments: TAKE ONE TABLET BY MOUTH EVERY DAY hydrochlorothiazide 12.5 mg capsule 12.5 mg PO DAILY Patient Comments: TAKE ONE CAPSULE BY MOUTH EVERY DAY IN THE MORNING Spiriva Respimat 2.5 mcg/actuation mist 2 puff INHALATION DAILY Patient Comments: INHALE TWO PUFFS BY MOUTH ONCE A DAY promethazine-DM 6.25-15 mg/5 mL Syrup 5 ml PO Q6H PRN (Reason: Cough) Qty: 240 0RF prednisone 10 mg tablet 10 mg PO DIRECTED 9 Days Qty: 21 0RF Rx Instructions: Take 4 tablets daily for 3 days, then take 2 tablets daily for 3 days, then take 1 tablet daily for 3 days, then stop. levofloxacin [levofloxacin] 500 mg tablet 500 mg PO DAILY Qty: 7 0RF Probiotic 3 billion cell capsule 3,000 mmu cells PO DAILY 30 Days Qty: 30 0RF Rx Instructions: administer with a meal budesonide-formoterol 10.2 GM HFA aerosol inhaler 2 puffs inhalation DAILY Patient Comments: INHALE 2 PUFFS BY MOUTH TWICE DAILY * SHAKE WELL BEFORE USE * [place] AFTER EACH USE amoxicillin-pot clavulanate 875-125 mg Tablet 1 tab PO Q12H Qty: 14 0RF guaifenesin [Mucinex] 600 mg tablet extended release 12hr 600 mg PO BID PRN (Reason: cough) Qty: 20 0RF Referrals Follow up/Referrals: Alma Gross APRN [Primary Care Provider] - See instructions Activity Restrictions/Add. Instructions Additional Instructions/Restrictions: Drink plenty of fluids. Take tylenol or ibuprofen for pain or fever. Take the medications as directed. Follow up with your regular doctor. GO TO THE ER FOR ANY WORSENING SYMPTOMS Clinical Impressions Clinical Impression: Sinusitis Stand Alone Forms Stand Alone Forms: Work/School Release Instructions Patient Instructions: DI for Sinusitis Discharge ED Provider: Domingo Abernathy [facility] General Stated complaint: sore throat, body aches, congestion, sinus pressur Mode of Arrival: Ambulatory Source of Information: Patient Limitations: No Limitations Time Seen by Provider: 01/12/23 08:31 HEENT Symptoms (Recalled from RN notes): Yes Resp Symptoms (Recalled from RN notes): No Skin Symptoms (Recalled from RN notes): No MS Symptoms (Recalled from RN notes): No Functional Status (Recalled from RN notes): wnl History of Present Illness Provider Complaint: Patient reports being achy, tired, sore throat, head congestion and sinus pressure for 3 days. Related Data Home Medications Medication Instructions Recorded Confirmed albuterol sulfate 90 mcg/actuation 1 mcg inhalation NEEDED PRN COPD 08/08/17 08/13/22 aerosol inhaler diclofenac sodium 50 mg 50 mg PO TID Arthritis 08/08/17 08/13/22 tablet,delayed release budesonide-formoterol HFA 160 2 puffs inhalation DAILY COPD 09/29/18 08/13/22 mcg-4.5 mcg/actuation aerosol inhaler lisinopril 20 1 tab PO DAILY Hypertension 03/22/20 08/13/22 mg-hydrochlorothiazide 12.5 mg tablet cetirizine 10 mg tablet 10 mg PO DAILY Allergy symptoms 08/13/22 08/13/22 hydrochlorothiazide 12.5 mg capsule 12.5 mg PO DAILY Hypertension 08/13/22 08/13/22 tiotropium bromide 2.5 2 puff inhalation DAILY COPD 08/13/22 08/13/22 mcg/a
[2023-01-12 08:41] LABS: UTC Strep Screen (Rapid) Negative (Negative)
[2023-01-12 08:51] VITALS: BP 147/96; PULSE 89; RESP 18; TEMP 36.8; O2SAT 98
== END 2023-01-12 08:52 | disposition home or self-care (01) ==
PROVIDERS: Emergency Provider Nurse Practitioner Family; PCP Nurse Practitioner Family
DX: J01.90 Acute sinusitis, unspecified (principal); F17.210 Nicotine dependence, cigarettes, uncomplicated; U07.1 COVID-19
CPT/HCPCS: 87880; 99212; 99214; G0463

== ENCOUNTER 2023-01-23 07:26 | Emergency (ER) | payer BC, SELFPAY ==
[2023-01-23 07:28] VITALS: BP 149/101; PULSE 95; RESP 20; TEMP 36.8; O2SAT 96; BMI 28.0
--- NOTE | 2023-01-23 07:38 | XR_ITS ---
FINAL REPORT CLINICAL HISTORY: twisting injury FINDINGS: Right foot Three views were obtained. There is no acute fracture or dislocation. Note is made of hallux valgus deformity. There is soft tissue swelling medial to the head of the 1st metatarsal. Calcaneal spurs are identified. There are mild degenerative changes. IMPRESSION: Mild degenerative changes without acute process. Reviewed, Interpreted and Dictated by Matt Caal III, MD Transcribed by Cristiana Ewing Authenticated and [facility]
--- NOTE | 2023-01-23 07:38 | XR_ITS ---
FINAL REPORT CLINICAL HISTORY: twisting injury FINDINGS: Right ankle Three views were obtained. There is no acute fracture or dislocation. There are mild degenerative changes. Calcaneal spurs are identified. No soft tissue abnormality is identified. IMPRESSION: Mild degenerative changes. Reviewed, Interpreted and Dictated by Matt Caal III, MD Transcribed by Cristiana Ewing Authenticated and [facility]
--- NOTE | 2023-01-23 07:39 | HMH.EDGENADL ---
Discharge Plan Disposition Patient Disposition: Home, Self-Care Prescriptions Prescriptions: No Action lisinopril-hydrochlorothiazide 20-12.5 mg tablet 1 tab PO DAILY hydrocodone-acetaminophen 5-325 mg tablet 1 tab PO TID PRN (Reason: pain) Qty: 15 0RF diclofenac sodium 50 MG tablet,delayed release (DR/EC) 50 mg PO TID albuterol sulfate 108 HFA aerosol inhaler 1 mcg inhalation NEEDED PRN (Reason: COPD) Patient Comments: cetirizine 10 mg tablet 10 mg PO DAILY Patient Comments: TAKE ONE TABLET BY MOUTH EVERY DAY hydrochlorothiazide 12.5 mg capsule 12.5 mg PO DAILY Patient Comments: TAKE ONE CAPSULE BY MOUTH EVERY DAY IN THE MORNING Spiriva Respimat 2.5 mcg/actuation mist 2 puff INHALATION DAILY Patient Comments: INHALE TWO PUFFS BY MOUTH ONCE A DAY promethazine-DM 6.25-15 mg/5 mL Syrup 5 ml PO Q6H PRN (Reason: Cough) Qty: 240 0RF prednisone 10 mg tablet 10 mg PO DIRECTED 9 Days Qty: 21 0RF Rx Instructions: Take 4 tablets daily for 3 days, then take 2 tablets daily for 3 days, then take 1 tablet daily for 3 days, then stop. levofloxacin [levofloxacin] 500 mg tablet 500 mg PO DAILY Qty: 7 0RF Probiotic 3 billion cell capsule 3,000 mmu cells PO DAILY 30 Days Qty: 30 0RF Rx Instructions: administer with a meal amoxicillin [amoxicillin] 875 mg tablet 875 mg PO Q12H Qty: 20 0RF benzonatate [benzonatate] 100 mg capsule 100 mg PO TIDP PRN (Reason: Cough) Qty: 30 0RF methylprednisolone 4 mg Tablets,Dose Pack 4 mg PO DIRECTED Qty: 21 0RF budesonide-formoterol 10.2 GM HFA aerosol inhaler 2 puffs inhalation DAILY Patient Comments: INHALE 2 PUFFS BY MOUTH TWICE DAILY * SHAKE WELL BEFORE USE * [place] AFTER EACH USE amoxicillin-pot clavulanate 875-125 mg Tablet 1 tab PO Q12H Qty: 14 0RF guaifenesin [Mucinex] 600 mg tablet extended release 12hr 600 mg PO BID PRN (Reason: cough) Qty: 20 0RF Referrals Follow up/Referrals: Alma Gross APRN [Primary Care Provider] - See instructions Activity Restrictions/Add. Instructions Additional Instructions/Restrictions: You have chronic degenerative changes and calcaneal spurs and a strain of your Achilles tendon as discussed. Please follow-up with your doctors as previously instructed and take supportive care medications as we discussed as well. Clinical Impressions Clinical Impression: Strain of Achilles tendon, Calcaneal spur Discharge ED Provider: Pavan Clark General Adult HPI General Chief complaint: Extremity Injury, Lower Stated complaint: [id number] right foot injury at gas station Time Seen by Provider: 01/23/23 07:35 Mode of Arrival: Family Vehicle Source of Information: Patient Limitations: No Limitations Description of Symptoms (Recalled from ER Triage Doc. by RN): Pt c/o R heel and back of foot pain after a fall. States I got my left foot hung up on the curb and landed on my right foot weird . Thinks the heel got jammed up . [employer] & pedal pulses History of Present Illness HPI narrative: Patient is a 57-year-old female here with a right foot injury. States she was at the gas station and stepped into a hole near the curb and her foot got jammed up. . She has chronic pain over the Achilles tendon in fact she gets injections in this area. She states that this is the location of her discomfort. She is having difficulty with putting weight on the foot with pain over the heel. No significant soft tissue swelling. No injuries elsewhere. Related Data Home Medications Medication Instructions Recorded Confirmed albuterol sulfate 90 mcg/actuation 1 mcg inhalation NEEDED PRN COPD 08/08/17 08/13/22 aerosol inhaler diclofenac sodium 50 mg 50 mg PO TID Arthritis 08/08/17 08/13/22 tablet,delayed release budesonide-formoterol HFA 160 2 puffs inhalation DAILY COPD 09/29/18 08/13/22 mcg-4.5 mcg/actuation aerosol
--- NOTE | 2023-01-23 07:47 | PC.NURSE ---
PT gone to RAD via wheelchair
--- NOTE | 2023-01-23 07:53 | PC.NURSE ---
Pt returned from RAD
[2023-01-23 08:00] VITALS: BP 132/84; PULSE 94; RESP 20; O2SAT 93
[2023-01-23 08:30] VITALS: BP 134/77; PULSE 95; RESP 19; O2SAT 94
--- NOTE | 2023-01-23 08:46 | PC.NURSE ---
Dr. Clark at to update pt of results
[2023-01-23 08:57] VITALS: BP 135/78; PULSE 90; RESP 18; TEMP 36.8; O2SAT 95
== END 2023-01-23 08:58 | disposition home or self-care (01) ==
PROVIDERS: Emergency Provider Student in an Organized Health Care Education/Training Program; PCP Nurse Practitioner Family
DX: S86.011A Strain of right Achilles tendon, initial encounter (principal); M77.31 Calcaneal spur, right foot; F17.210 Nicotine dependence, cigarettes, uncomplicated; X50.1XXA Overexertion from prolonged static or awkward postures, initial encounter
CPT/HCPCS: 73610; 73630; 99283

== ENCOUNTER → 2023-02-20 15:59 | Outpatient (CLI) | payer BC, SELFPAY ==
--- NOTE | 2023-02-20 15:59 | MR_ITS ---
PROCEDURE INFORMATION: Exam: MR Right Lower Extremity Joint Without Contrast; Ankle Exam date and time: 02/20/2023 4:07 PM Age: 57 years old Clinical indication: Pain; Ankle; Right; Additional info: Right ankle injury, pain, loss of rom TECHNIQUE: Imaging protocol: Magnetic resonance imaging of the right lower extremity without contrast. Exam focused on the ankle. COMPARISON: 1. CR XR ANKLE RT MIN 3V 01/23/2023 7:39 AM 2. CR XR FOOT RT MIN 3V 01/23/2023 7:39 AM FINDINGS: Bones/joints: A 0.6 x 0.2 cm fragment of bone presumed to represent a calcaneal enthesophyte is avulsed and retracted with the superficial fibers of the ruptured Achilles tendon (series 5/image 14). A large plantar calcaneal enthesophyte is present. Osseous contusions (post-traumatic bone marrow lesions) involve the anterior aspect of the distal tibia and dorsal talus. A small accessory bone (os supranaviculare) or chronic fracture fragment is present dorsal to the talonavicular joint. A well-corticated osteochondral body adjacent to the tip of the medial malleolus is consistent with a remote unhealed fracture fragment. A mild effusion involves the ankle joint. LIGAMENTS: Distal tibiofibular syndesmosis: Unremarkable. No tear. Anterior talofibular ligament: The anterior talofibular ligament has only a few remaining intact inferior fibers, consistent with a high-grade partial-thickness tear. Posterior talofibular ligament: Unremarkable. No tear. Calcaneofibular ligament: Unremarkable. No tear. Deltoid ligament complex: Unremarkable. No tear. TENDONS: Flexor tendons of foot: Unremarkable as visualized. Tibialis posterior tendon: The calcaneofibular ligament is intactTrace tenosynovitis involves the tibialis posterior tendon. No tear. Peroneal tendons: Trace tenosynovitis involves the peroneal tendon sheath. Extensor tendons of foot: Unremarkable as visualized. Tibialis anterior tendon: Unremarkable. Achilles tendon: The Achilles tendon is ruptured. The rupture is located 1.5 cm proximal to the most distal portion of the Achilles tendon insertion with variable gap in the ruptured region measuring 0.6 cm superficially and 2.8 cm along the deep fibers (series 6/image 16). If any few peripheral fibers remain intact, these are unlikely to be structurally sound. The typically adjacent plantaris tendon is not visible and likely torn. Tarsal canal (Sinus tarsi): Unremarkable. Normal signal of the fat. Tarsal tunnel: Unremarkable. Soft tissues: Severe soft tissue edema is present within and around the Achilles tendon rupture site. Plantar fascia: The proximal plantar fascia is mildly thickened along the border of the large enthesophyte suggesting mild plantar fasciitis (fasciopathy). IMPRESSION: 1. Achilles tendon rupture with avulsion of a presumed calcaneal enthesophyte. 2. Osseous contusions along the anterior ankle. 3. High-grade, partial-thickness tear of the anterior talofibular ligament. 4. Mild plantar fasciitis (fasciopathy). 5. Trace tenosynovitis of the peroneal tendons.
== END ==
LOC: RAD 15:59
PROVIDERS: PCP Nurse Practitioner Family; Visit Provider Orthopaedic Surgery
DX: S99.911A Unspecified injury of right ankle, initial encounter (principal); M25.671 Stiffness of right ankle, not elsewhere classified; M77.31 Calcaneal spur, right foot; W18.39XA Other fall on same level, initial encounter
CPT/HCPCS: 73721

== ENCOUNTER → 2023-04-17 08:23 | Outpatient (CLI) | payer BC, SELFPAY ==
[2023-04-17 17:58] LABS: Uric Acid 4.6 mg/dl (2.5-6.2)
[2023-04-17 18:21] LABS: Erythrocyte Sedimentation Rate 17 mm/hr (0-30)
[2023-04-19 22:16] LABS: RA Latex Turbid. 11.6 IU/mL (<14.0)
[2023-04-23 21:26] LABS: Antinuclear Antibodies, IFA Positive
== END ==
PROVIDERS: PCP Nurse Practitioner Family; Visit Provider Nurse Practitioner Family
DX: M25.50 Pain in unspecified joint (principal)
CPT/HCPCS: 84550; 85651; 86038; 86431

== ENCOUNTER 2023-04-30 14:13 | Outpatient (RCR) | payer BC, SELFPAY ==
--- NOTE | 2023-04-30 15:17 | HMH.PTOPEV ---
PT Outpatient Evaluation Rehab PT Outpatient Evaluation Start: 04/30/23 14:18 Freq: Status: Active Protocol: Document 04/30/23 15:00 REZA (Rec: 04/30/23 15:17 PHORNE [id number]) E-signed By Bello Coates, PT Outpatient Therapy Subjective History Subjective History This is the initial PT eval for Britney Coughlin, 58 yowf who presents with ~3 mos of R ankle pain and weakness. She states, I was having some pain in my ankle, but I tripped on a hose at the gas station and tore my achilles tendon. That made it a lot worse. She had MRI performed 02/20/23 with results as follows: IMPRESSION: 1. Achilles tendon rupture with avulsion of a presumed calcaneal enthesophyte. 2. Osseous contusions along the anterior ankle. 3. High-grade, partial- thickness tear of the anterior talofibular ligament. 4. Mild plantar fasciitis ( fasciopathy). 5. Trace tenosynovitis of the peroneal tendons. She has been in cam walker until recently to protect the tendon and undergoing conservative management. She reports pain is only present with prolonged weight bearing. but I've got to get back to work soon and I will have to be on my feet all day. New diagnosis of cancer in past 12 No months? Chief Complaint Pain,Stiff Symptom Type Ache,Sharp Symptoms Relieved By Rest/Positioning Symptoms Aggravated By Physical Activity Prior Functional Limitations None Current Functional Limitations Standing,Walking Symptom Description Activity Dependent Level of pain today (0-10) 0 Pain scale - at its worst (0-10) 10 Ankle/Foot Eval Gait Observation General Gait Pattern Observation Antalgic Gait Palpation Tenderness right Ankle/Foot Palpation Findings Tenderness Ankle/Foot Palpation Overall Comment distal achilles insertion 1/4 ROM Ankle/Foot Dorsiflexion w/Knee Extended 0-6 Active Range Motion (degrees) Ankle/Foot Plantar Flexion Active Range 0-28 of Motion (degrees) Ankle/Foot Eversion Active Range of 0-15 Motion (degrees) Ankle/Foot Inversion Active Range of 0-34 Motion (degrees) MMT Ankle Dorsiflexion Strength Grade 4 Good Ankle Plantarflexion Strength Grade 3+ Fair+ Foot Eversion Strength Grade 4 Good Foot Inversion Strength Grade 4 Good Lower Extremity Functional Index Activities Today, do you or would you have any difficulty at all with: a.Any of your usual work, housework or Moderate difficulty school activities b. Your usual hobbies, recreational or Moderate difficulty sporting activities c. Getting into or out of the bath No difficulty d. Walking between rooms A little bit of difficulty e. Putting on your shoes or socks No difficulty f. Squatting A little bit of difficulty g. Lifting an object, like a bag of A little bit of difficulty groceries from the floor h. Performing light activities around Moderate difficulty your home i. Performing heavy activities around Moderate difficulty your home j. Getting into or out of a car A little bit of difficulty k. Walking 2 blocks Moderate difficulty l. Walking a mile Moderate difficulty m. Going up or down 10 stairs (about 1 Moderate difficulty flight of stairs) n. Standing for 1 hour A little bit of difficulty o. Sitting for 1 hour No difficulty p. Running on even ground Quite a bit of difficulty q. Running on uneven ground Quite a bit of difficulty r. Making sharp turns while running fast Quite a bit of difficulty s. Hopping Quite a bit of difficulty t. Rolling over in bed A little bit of difficulty LEFI Score Lower Extremity Functional Index Score 48 Outpatient Therapy Assessment Impairments Problems/Impairmments Palpation Tenderness,Impaired Range of Motion,Impaired Strength,Impaired Endurance, Impaired Gait Pattern,Impaired Walking,Impaired Standing, Impaired Household Care, Impaired Stepping on Uneven Surface,Impaired Recreational Activities,Impaired Work Activities,Increased Edema, Subjective C/O Pain,Impaired Self Care/Self Management Prognosis Rehab Potential Good Clinical Impression Consistent with Diagnosis Yes Short Term Goals Number of Weeks 2 Increase Range of Motion Yes: R ankle DF by 5 deg Increase Strength Yes: R ankle 4+/5 throughout Improve Gait Pattern without Assistive Yes: No antalgic gait pattern Device Improve Ability For Household Care Yes Improve LEFI Score Yes: >52 Decrease Subjective C/O Pain Yes: 7/10 at worst Patient to be Ind w/ HEP Yes 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 Number of Weeks 4 Decreased Palpation Tenderness Yes: 0/4 R ankle Increase Range of Motion Yes: R ankle DF by 10 deg Increase Ability to Walk Yes: 30 min without pain Improve Tolerance to Work Activities Yes Improve LEFI Score Yes: > 55 Decrease Subjective C/O Pain Yes: 3/10 at worst Patient to be Ind w/ Advanced HEP Yes Outpatient Therapy Plan of Care Treatment Plan May Include Therapeutic Exercise Including Home Yes Exercise Program Manual Therapy Techniques Yes Neuromuscular Re-education Yes Therapeutic Activities to Return to Yes Previous Functional/Work Level Gait Training Yes ADL/Self Care Education Yes Thermal Modalities Yes Electrical Stimulation Yes Ultrasound/Phonophoresis Yes Iontophoresis Yes Orthotics/Bracing/Splinting Yes Manual Lymphatic Drainage Yes Eval/Re-Eval Yes Frequency Times per week 1-2 Duration Number of Weeks 4 Addendums This patient is a candidate for social No or vocational rehab? Patient/Guardian verbally acknowledges Yes understanding of treatment program and consents to further treatment? Patient/Guardian verbally acknowledges Yes understanding of diagnosis, prognosis and goals for treatment? Eval Complexity PT Charges 93054 - High Complexity Shoulder/Elbow Eval Shoulder Objective Measurements Elbow Objective Measurements PHYSICIAN CERTIFICATION: I certify the specified therapy services for Britney Coughlin are required, authorized, and reviewed every 30 days.
== END 2023-04-30 15:30 | disposition home or self-care (01) ==
LOC: PT 14:13
PROVIDERS: PCP Nurse Practitioner Family; Visit Provider Orthopaedic Surgery
DX: M25.571 Pain in right ankle and joints of right foot (principal)
CPT/HCPCS: 97163

== ENCOUNTER 2023-05-23 11:56 | Outpatient (CLI) | payer BC, SELFPAY ==
[2023-05-23 12:07] LABS: Adenovirus,PCR Not Detected (NotDetected); Coronavirus 19, PCR Not Detected (NotDetected); Coronavirus 229E Not Detected (NotDetected); Coronavirus NL63 Not Detected (NotDetected); Coronavirus OC43 Not Detected (NotDetected); Coronovirus HKU1,PCR Not Detected (NotDetected); Human Metapneumovirus Not Detected (NotDetected); Influenza A, PCR Not Detected (NotDetected); Influenza AH1, 2009 Not Detected (NotDetected); Influenza AH1, PCR Not Detected (NotDetected); Influenza AH3,PCR Not Detected (NotDetected); Influenza B, PCR Not Detected (NotDetected); Parainfluenza 1, PCR Not Detected (NotDetected); Parainfluenza 2, PCR Not Detected (NotDetected); Parainfluenza 3, PCR Not Detected (NotDetected); Parainfluenza 4, PCR Not Detected (NotDetected); Respiratory Syncytial Virus Not Detected (NotDetected); Rhinovirus/Enterovirus Not Detected (NotDetected)
--- NOTE | 2023-05-23 12:24 | XR_ITS ---
FINAL REPORT CLINICAL HISTORY: SUÁREZ, COPD COMPARISON: 08/13/2022 FINDINGS: Two views of the chest were obtained. The heart size and pulmonary vascularity are within normal limits. The mediastinum is normal. No acute pulmonary abnormality is identified. There are are large lung volumes and flattening of the hemidiaphragms consistent with chronic obstructive pulmonary disease. There is mild atelectasis or scar present at the left lung base. The patient has undergone a anterior cervical fusion stable since July 2022. There is no pneumothorax. The bony thorax is intact. IMPRESSION: No active cardiopulmonary disease. Reviewed, Interpreted and Dictated by Matt Caal III, MD Transcribed by Gissel Devi Authenticated and . [facility]
== END 2023-05-23 23:59 ==
LOC: LAB 11:57
PROVIDERS: PCP Nurse Practitioner Family; Visit Provider Nurse Practitioner Family
DX: M25.50 Pain in unspecified joint (principal); M25.60 Stiffness of unspecified joint, not elsewhere classified; R05.9 Cough, unspecified; J44.9 Chronic obstructive pulmonary disease, unspecified; R06.09 Other forms of dyspnea
CPT/HCPCS: 71046; 87632; 87635

== ENCOUNTER 2023-05-28 14:43 | Outpatient (CLI) | payer BC, SELFPAY ==
[2023-05-28 15:40] VITALS: PULSE 88; PULSE 96
[2023-05-28] MEDS: ALBUTEROL 0.083% 2.5 MG/3 ML NEB IH (15:40)
== END 2023-05-28 23:59 ==
PROVIDERS: PCP Nurse Practitioner Family; Visit Provider Nurse Practitioner Family
DX: R06.09 Other forms of dyspnea (principal); J44.9 Chronic obstructive pulmonary disease, unspecified; Z72.0 Tobacco use
CPT/HCPCS: 94060; 94640

== ENCOUNTER 2023-06-08 16:07 | Outpatient (CLI) | payer BC, SELFPAY ==
[2023-06-08 17:44] LABS: Thyroid Stimulating Hormone 0.32 uIU/mL (0.465-4.68)
[2023-06-08 17:50] LABS: 25-OH Vitamin D, Total < 12.8 ng/mL (30-100)
[2023-06-08 18:03] LABS: Vitamin B12 477 pg/mL (239-931)
[2023-06-14 18:09] LABS: HLA-B27 Negative (.)
== END 2023-06-08 23:59 ==
LOC: LAB.DROPOF 16:07
PROVIDERS: PCP Nurse Practitioner Family; Visit Provider Nurse Practitioner Family
DX: M25.50 Pain in unspecified joint (principal); R76.8 Other specified abnormal immunological findings in serum; R79.89 Other specified abnormal findings of blood chemistry; R63.5 Abnormal weight gain; Z68.29 Body mass index [BMI] 29.0-29.9, adult; E55.9 Vitamin D deficiency, unspecified
CPT/HCPCS: 82306; 82607; 84443; 86812

== ENCOUNTER 2023-06-19 06:57 | Outpatient (CLI) | payer BC, SELFPAY | END 2023-06-19 23:59 | LOC: LAB.DROPOF 06-21 06:58 | PROVIDERS: PCP Nurse Practitioner Family; Visit Provider Nurse Practitioner Family | DX: M51.36 Other intervertebral disc degeneration, lumbar region (principal) | CPT/HCPCS: 80307 ==

== ENCOUNTER 2023-06-19 15:11 | Outpatient (CLI) | payer BC, SELFPAY ==
--- NOTE | 2023-06-19 15:14 | XR_ITS ---
FINAL REPORT CLINICAL HISTORY: lower back pain x 3 days FINDINGS: No fracture is identified. Moderate diffuse degenerative disc disease. Grade 2 spondylolisthesis of L4 on L5 IMPRESSION: Moderate diffuse degenerative disc disease. Reviewed, Interpreted and Dictated by Casimiro Miranda MD Transcribed by Carmine Zuniga Authenticated and [facility]
[2023-06-19 17:09] LABS: Cannabinoid Screen,Urine Negative ng/ml (<50)
[2023-06-19 17:10] LABS: Cocaine Screen,Urine Negative ng/ml (<300); Methadone Screen,Urine Negative ng/ml (<300)
[2023-06-19 17:11] LABS: Opiate Screen,Urine Negative ng/ml (<300)
[2023-06-19 17:17] LABS: Amphetamine/Metha Screen,Urine Negative ng/ml (<1000); Phencyclidine Screen,Urine Negative ng/ml (<25)
[2023-06-19 17:18] LABS: Barbiturates Screen,Urine Negative ng/ml (<200)
[2023-06-19 17:45] LABS: Benzodiazepines Screen,Urine Negative ng/ml (<200)
== END 2023-06-19 23:59 ==
LOC: RAD 15:12
PROVIDERS: PCP Nurse Practitioner Family; Visit Provider Nurse Practitioner Family
DX: M51.36 Other intervertebral disc degeneration, lumbar region (principal); M54.16 Radiculopathy, lumbar region; M54.41 Lumbago with sciatica, right side
CPT/HCPCS: 72100; 80307

== ENCOUNTER 2023-07-06 16:54 | Outpatient (CLI) | payer BC, SELFPAY ==
[2023-07-06 17:33] LABS: Basophils # 0.1 K/mm3 (0-0.2); Basophils % 0.6 % (0.1-2.0); Eosinophils # 0.2 K/mm3 (0.0-0.4); Eosinophils % 1.8 % (0.1-12.0); Hematocrit 44.8 % (37.0-47.0); Lymphocytes # 2.5 K/mm3 (0.7-4.5); Lymphocytes % 29.3 % (10-50); Mean Corpuscular HGB Conc 33.6 g/dL (31.8-35.4); Mean Corpuscular Hemoglobin 31.7 pg (27.0-31.2); Mean Corpuscular Volume 94.3 fl (81-99); Mean Platelet Volume 8.8 fl (7.4-10.4); Monocytes # 0.4 K/mm3 (0.1-1.0); Neutrophils # 5.3 K/mm3 (1.8-7.8); Neutrophils % 63.5 % (37.0-80.0); Platelet Count 310 K/mm3 (142-424); Red Blood Count 4.75 M/mm3 (4.20-5.40); Red Cell Distribution Width 13.4 % (11.5-17.5); White Blood Count 8.4 K/mm3 (4.8-10.8)
[2023-07-06 17:46] LABS: Alanine Aminotransferase 22 U/L (12-78); Albumin Level 3.9 g/dl (3.5-5.0); Albumin/Globulin Ratio 1.5 (1.1-1.8); Alkaline Phosphatase 104 U/L (38-126); Anion Gap 10.4 mEq/L (5-15); Aspartate Amino Transferase 25 U/L (14-36); Bilirubin,Total 0.3 mg/dl (0.2-1.3); Blood Urea Nitrogen 9 mg/dl (7-17); Calcium 9.9 mg/dl (8.4-10.2); Carbon Dioxide 27 mmol/L (22.0-30.0); Chloride 104 mmol/L (98-107); Estimated Glomerular Filt Rate 85 ml/min (>60); GFR (African American) 103 ML/MIN (>60); Globulin 2.6 g/dL (1.3-3.2); Glucose 90 mg/dl (74-100); Potassium 4.4 mmoL/L (3.5-5.1); Sodium 137 mmol/L (136-145); Total Protein,Serum 6.5 g/dl (6.3-8.2)
[2023-07-06 18:03] LABS: 25-OH Vitamin D, Total 19.7 ng/mL (30-100); Free T4 (Free Thyroxine) 1.02 ng/dl (0.78-2.19)
[2023-07-06 18:17] LABS: Thyroid Stimulating Hormone 0.93 uIU/mL (0.465-4.68)
[2023-07-07 11:13] LABS: Triiodothyronine (T3) Free 3.4 pg/mL (2.0-4.4)
== END 2023-07-06 23:59 ==
LOC: LAB.DROPOF 16:55
PROVIDERS: PCP Nurse Practitioner Family; Visit Provider Nurse Practitioner Family
DX: L40.50 Arthropathic psoriasis, unspecified (principal); R79.89 Other specified abnormal findings of blood chemistry; E55.9 Vitamin D deficiency, unspecified; Z68.30 Body mass index [BMI] 30.0-30.9, adult
CPT/HCPCS: 80053; 82306; 84439; 84443; 84481; 85025

== ENCOUNTER 2023-07-12 12:55 | Outpatient (CLI) | payer BC, SELFPAY ==
--- NOTE | 2023-07-12 12:56 | MR_ITS ---
FINAL REPORT CLINICAL HISTORY: Lumbago. RIGHT SIDED LOW BACK PAIN AND BUTTOX COMPARISON: 10/31/2018 FINDINGS: Multiplanar MR imaging of the lumbar spine was performed without contrast. On the sagittal T2-weighted images, there is abnormal decreased signal throughout the lumbar discs. The vertebrae are of normal height. There is minimal spondylolisthesis of L4 on L5, more evident than seen on the prior exam of 2019. L1-2: There is no significant canal stenosis or neural foraminal narrowing. L2-3: There is a small annular bulge with a posterolateral disc protrusion producing mild to moderate bilateral neural foraminal narrowing. L3-4: There is a moderate annular bulge with a left posterolateral disc protrusion, and moderate to severe left neural foraminal narrowing. The left neural foraminal narrowing is more evident than on the prior exam. L4-5: There is a moderate annular bulge present with mild to moderate right and mild left neural foraminal narrowing. L5-S1: There is a small midline disc protrusion which produces mild canal stenosis. No significant neural foraminal narrowing is present. IMPRESSION: Multilevel lumbar degenerative change, with progression of the disc degenerative change since the prior MRI of 2019. The minimal spondylolisthesis of L4 on L5 is more evident than seen on the prior exam. There is worsening of the left neural foraminal narrowing at the L3-4 level since the prior exam. Reviewed, Interpreted and Dictated by Connor Blake MD Transcribed by Gissel Devi Authenticated and [facility]
== END 2023-07-12 23:59 ==
LOC: RAD 12:56
PROVIDERS: PCP Nurse Practitioner Family; Visit Provider Nurse Practitioner Family
DX: M47.26 Other spondylosis with radiculopathy, lumbar region (principal)
CPT/HCPCS: 72148; 76376

== ENCOUNTER 2023-07-19 16:00 | Outpatient (RCR) | payer BC, SELFPAY | END 2023-07-19 17:30 | disposition home or self-care (01) | LOC: PT 16:00 | PROVIDERS: PCP Nurse Practitioner Family; Visit Provider Nurse Practitioner Family | DX: M47.816 Spondylosis without myelopathy or radiculopathy, lumbar region (principal); M54.16 Radiculopathy, lumbar region | CPT/HCPCS: 97010; 97014; 97035; 97110; 97140; 97163; 97530; G0283 ==

== ENCOUNTER 2023-08-10 15:35 | Outpatient (CLI) | payer BC, SELFPAY ==
[2023-08-10 16:09] LABS: Basophils # 0.1 K/mm3 (0-0.2); Eosinophils # 0.2 K/mm3 (0.0-0.4); Eosinophils % 2.8 % (0.1-12.0); Hematocrit 46.7 % (37.0-47.0); Hemoglobin 14.7 g/dL (12.2-16.2); Lymphocytes % 27.4 % (10-50); Mean Corpuscular HGB Conc 31.4 g/dL (31.8-35.4); Mean Corpuscular Hemoglobin 31.5 pg (27.0-31.2); Mean Corpuscular Volume 100.2 fl (81-99); Monocytes # 0.5 K/mm3 (0.1-1.0); Monocytes % 6.4 % (1.7-9.3); Neutrophils # 4.6 K/mm3 (1.8-7.8); Neutrophils % 62.4 % (37.0-80.0); Platelet Count 326 K/mm3 (142-424); Red Blood Count 4.66 M/mm3 (4.20-5.40); Red Cell Distribution Width 13.8 % (11.5-17.5); White Blood Count 7.3 K/mm3 (4.8-10.8)
[2023-08-10 16:23] LABS: Chloride 107 mmol/L (98-107)
[2023-08-10 16:24] LABS: Potassium 3.7 mmoL/L (3.5-5.1); Sodium 142 mmol/L (136-145)
[2023-08-10 16:26] LABS: Alanine Aminotransferase 17 U/L (12-78); Anion Gap 9.7 mEq/L (5-15); Aspartate Amino Transferase 27 U/L (14-36); Blood Urea Nitrogen 8 mg/dl (7-17); Carbon Dioxide 29 mmol/L (22.0-30.0); Estimated Glomerular Filt Rate 85 ml/min (>60); GFR (African American) 103 ML/MIN (>60)
[2023-08-10 16:27] LABS: Albumin Level 3.8 g/dl (3.5-5.0); Albumin/Globulin Ratio 1.7 (1.1-1.8); Alkaline Phosphatase 88 U/L (38-126); Bilirubin,Total 0.2 mg/dl (0.2-1.3); Calcium 9.1 mg/dl (8.4-10.2); Chol/HDL Ratio 4.2 (1-3.5); Cholesterol 221 mg/dl (140-200); Globulin 2.3 g/dL (1.3-3.2); Glucose 69 mg/dl (74-100); HDL Cholesterol 53 mg/dl (40-60); Total Protein,Serum 6.1 g/dl (6.3-8.2); Triglycerides 152 mg/dl (30-150); VLDL Cholesterol 30 mg/dL (0-40)
[2023-08-10 16:38] LABS: Direct LDL Cholesterol 121.58 mg/dL (100-129)
[2023-08-10 16:43] LABS: 25-OH Vitamin D, Total 29.3 ng/mL (30-100)
[2023-08-10 16:58] LABS: Thyroid Stimulating Hormone 1.25 uIU/mL (0.465-4.68)
[2023-08-10 17:16] LABS: Vitamin B12 448 pg/mL (239-931)
[2023-08-10 17:31] LABS: C-Reactive Protein 2.3 mg/L (0-4)
== END 2023-08-10 23:59 ==
LOC: LAB.DROPOF 15:35
PROVIDERS: PCP Nurse Practitioner Family; Visit Provider Nurse Practitioner Family
DX: I10 Essential (primary) hypertension (principal); R79.89 Other specified abnormal findings of blood chemistry; M25.60 Stiffness of unspecified joint, not elsewhere classified; L40.50 Arthropathic psoriasis, unspecified; E55.9 Vitamin D deficiency, unspecified; Z79.899 Other long term (current) drug therapy
CPT/HCPCS: 80053; 80061; 82306; 82607; 84443; 85025; 86140

== ENCOUNTER 2023-08-30 13:00 | Outpatient (RCR) | payer BC, SELFPAY ==
--- NOTE | 2023-08-13 12:09 | HMH.PTOPEV ---
PT Outpatient Evaluation Rehab PT Outpatient Evaluation Start: 08/13/23 11:06 Freq: Status: Active Protocol: Document 08/13/23 11:07 NENA (Rec: 08/13/23 12:08 NENA [id number]) E-signed By Eliana Wang, PT Outpatient Therapy Subjective History Subjective History Pt is a 58 y/o female with main complaints of chronic R>L low back pain and R>L knee pain with gradual worsening overtime. Pt reports she was recently diagnosed with psoriatic arthritis in July. Pt denies having recent imaging of her knees. Pt had a lumbar spine MRI on 07/12/23 with impression of Multilevel lumbar degenerative change, with progression of the disc degenerative change since the prior MRI of 2018. The minimal spondylolisthesis of L4 on L5 is more evident than seen on the prior exam. There is worsening of the left neural foraminal narrowing at the L3-4 level since the prior exam. Pt reports LBP and knee pain are aggravated by prolonged sitting 30-45 minutes, standing/walking >10 minutes, bending forward, lifting, and traversing stairs . Pt denies numbness/tingling or b/b dysfunction. Pt reports her R>L knee will often swell with increased activity. Pt reports she uses a rollator walker in the morning or after sedentary periods due to stiffness. Pt attended a couple weeks of PT treatments 1 month ago for LBP and reports this was helping. Pt reports she was unable to attend PT further due to change in insurance. Pt reports continued compliance of HEP since. Medical History: Allergic rhinitis, Psoriatic arthritis, Asthma, severe persistent, COPD, Hypertension New diagnosis of cancer in past 12 No months? Chief Complaint Pain,Stiff,Swelling Symptom Type Ache,Sharp,Dull Symptoms Relieved By Rest/Positioning,Heat, Prescription Meds Symptoms Aggravated By Sitting,Standing,Bending/ Stooping,Physical Activity, Walking,Lifting Current Functional Limitations Lifting,Housework,Sleeping, Standing,Sitting,Squatting, Walking,Stairs,Bending/ Stooping Symptom Description Constant but Variable Level of pain today (0-10) 7 Pain scale - at its best (0-10) 3 Pain scale - at its worst (0-10) 10 Lumbopelvic Eval Posture Lumbar Spine Posture Standing Position Flexed Assistive device Assistive Devices None / NA Gait Observation General Gait Pattern Observation Antalgic Gait,Wide Based Gait Palapation tenderness bilateral thoracic spinal tenderness Yes lumbar spinal tenderness Yes buttock tenderness Yes: R>L Lumbar/Sacral Palpation Findings Tenderness Accessory Movement T-spine Vertebrae Accessory Movements Central P/A [place] that Elicit Symptoms T10 bilateral T11 bilateral T12 bilateral L-spine Vertebrae Accessory Movements Central P/A [place] that Elicit Symptoms L2 bilateral L3 bilateral L4 bilateral L5 bilateral S1 bilateral Range of Motion Lumbar Spine Active Flexion Range of 55 Motion (degrees) Lumbar Spine Active Extension Range of 10 Motion (degrees) Left Lumbar Spine Lateral Flexion Active 15 Range of Motion (degrees) Right Lumbar Spine Lateral Flexion 15 Active Range of Motion (degrees) Lumbar Spine ROM Limitations Pain Manual Muscle Test Bilateral Knee Extension Strength Grade 4- Good- Knee Flexion Strength Grade 4- Good- Hip Flexion Strength Grade 4- Good- Hip Abduction Strength Grade 4- Good- Hip Adduction Strength Grade 4- Good- Hip Extension Strength Grade 3 Fair Ankle Dorsiflexion Strength Grade 5 Normal Special Tests Sciatic Nerve Tension Test Negative Left,Negative Right Unilateral Straight Leg Raise (Lasegue) Negative Left,Negative Right Test Hip/Knee Eval Palpation Tenderness bilateral Knee Palpation Finding Tenderness Knee Palpation Overall Comment R>L medial and lateral joint lines ROM Knee Extension Active Range of Motion ( 0 degrees) Knee Flexion Active Range of Motion ( 125 degrees) Oswestry Index Section 1 Pain Intensity The pain comes and goes and is severe Section 2 Personal Care (Washing,Dresing) increase the pain and I find it necessary to change my way of doing it Section 3 Lifting I can only lift very light weights at most Section 4 Walking I cannot walk at all without increasing pain Section 5 Sitting Pain prevents me from sitting for more than 1/2 hour Section 6 Standing I cannot stand more than 10 minutes without increasing pain Section 7 Sleeping Because of my pain, my normal night's sleep is less than 4 hours Section 8 Social Life Pain has restricted my social life and I do not go out often Section 9 Traveling Pain restricts me to short necessary journeys under 30 minutes Section 10 Changing Degreee of Pain My pain is gradually getting worse Score and Risk Level Oswestry Sc 38 Oswestry Risk Level Completely Disabled Outpatient Therapy Assessment Impairments Problems/Impairmments Palpation Tenderness,Impaired Range of Motion,Impaired Strength,Impaired Walking, Impaired Standing,Impaired Sitting,Impaired Lifting, Impaired Household Care, Impaired Stair Climbing, Impaired Squatting,Impaired Bending,Subjective C/O Pain, Impaired Self Care/Self Management Prognosis Rehab Potential Good Comment barrier to progress includes chronic pain in multiple joints Clinical Impression Consistent with Diagnosis Yes Short Term Goals Number of Weeks 3 Improve Oswestry Score Yes: Improve score to 33 to improve overall QOL Decrease Subjective C/O Pain Yes: Improve pain at worst to 8/10 to improve overall QOL Improve Self Care/Self Management Yes Patient to be Ind w/ HEP Yes Senior Living Goals Number of Weeks 6 Increase Range of Motion Yes: Improve lumbar AROM flex to 80, ext to 15, LF to 20 Increase Strength Yes: Improve BLE MMT to 4+/5 grossly to assist with function Improve Ability to Climb Stairs Yes: 1 flight with HR with pain 6/10 or less to assist with community navigation Improve Oswestry Score Yes: Improve score to 28 to improve overall QOL Decrease Subjective C/O Pain Yes: Improve pain at worst to 6/10 to improve overall QOL Patient to be Ind w/ Advanced HEP Yes Outpatient Therapy Plan of Care Treatment Plan May Include Therapeutic Exercise Including Home Yes Exercise Program Manual Therapy Techniques Yes Neuromuscular Re-education Yes Therapeutic Activities to Return to Yes Previous Functional/Work Level ADL/Self Care Education Yes Mechanical Traction Yes Dry Needling Yes Thermal Modalities Yes Electrical Stimulation Yes Ultrasound/Phonophoresis Yes Iontophoresis Yes Orthotics/Bracing/Splinting Yes Vasopneumatic Compression Pump Yes Massage Yes Eval/Re-Eval Yes Aquatic Therapy Yes Frequency Times per week 2 Duration Number of Weeks 4-6 Addendums This patient is a candidate for social No or vocational rehab? Patient/Guardian verbally acknowledges Yes understanding of treatment program and consents to further treatment? Patient/Guardian verbally acknowledges Yes understanding of diagnosis, prognosis and goals for treatment? Eval Complexity PT Charges 46794 - Moderate Complexity Shoulder/Elbow Eval Shoulder Objective Measurements Elbow Objective Measurements PHYSICIAN CERTIFICATION: I certify the specified therapy services for Britney Coughlin are required, authorized, and reviewed every 30 days.
== END 2023-08-30 14:20 | disposition home or self-care (01) ==
LOC: PT 13:00
PROVIDERS: Visit Provider Nurse Practitioner Family
DX: L40.59 Other psoriatic arthropathy (principal); M51.36 Other intervertebral disc degeneration, lumbar region; M25.60 Stiffness of unspecified joint, not elsewhere classified; M25.50 Pain in unspecified joint
CPT/HCPCS: 97110; 97163; 97530

== ENCOUNTER 2023-09-07 11:31 | Outpatient (CLI) | payer BC, SELFPAY ==
--- NOTE | 2023-09-07 11:34 | XR_ITS ---
FINAL REPORT CLINICAL HISTORY: posterior knee pain and swelling, instability COMPARISON: None FINDINGS: For images of the left knee were obtained. There is no evidence of fracture or dislocation. There is mild narrowing of the medial compartment of the knee, as well as the patellofemoral compartment, consistent with mild changes of osteoarthritis. A trace joint effusion is present. There is no soft tissue abnormality identified. IMPRESSION: Mild changes of osteoarthritis as described above, with a trace joint effusion. Reviewed, Interpreted and Dictated by Connor Blake MD Transcribed by Gissel Devi Authenticated and [facility]
[2023-09-07 12:33] LABS: Basophils % 0.6 % (0.1-2.0); Eosinophils # 0.2 K/mm3 (0.0-0.4); Eosinophils % 2.2 % (0.1-12.0); Hematocrit 44.4 % (37.0-47.0); Hemoglobin 14.5 g/dL (12.2-16.2); Lymphocytes # 2.2 K/mm3 (0.7-4.5); Lymphocytes % 27.6 % (10-50); Mean Corpuscular HGB Conc 32.6 g/dL (31.8-35.4); Mean Corpuscular Hemoglobin 31.6 pg (27.0-31.2); Mean Corpuscular Volume 96.9 fl (81-99); Mean Platelet Volume 9.4 fl (7.4-10.4); Monocytes # 0.5 K/mm3 (0.1-1.0); Monocytes % 6.9 % (1.7-9.3); Neutrophils # 4.9 K/mm3 (1.8-7.8); Neutrophils % 62.7 % (37.0-80.0); Platelet Count 264 K/mm3 (142-424); Red Blood Count 4.58 M/mm3 (4.20-5.40); Red Cell Distribution Width 14.4 % (11.5-17.5); White Blood Count 7.8 K/mm3 (4.8-10.8)
[2023-09-07 13:06] LABS: Alanine Aminotransferase 18 U/L (12-78); Albumin Level 3.9 g/dl (3.5-5.0); Albumin/Globulin Ratio 1.7 (1.1-1.8); Alkaline Phosphatase 81 U/L (38-126); Anion Gap 9.9 mEq/L (5-15); Aspartate Amino Transferase 27 U/L (14-36); Bilirubin,Total 0.4 mg/dl (0.2-1.3); Blood Urea Nitrogen 6 mg/dl (7-17); Calcium 9.7 mg/dl (8.4-10.2); Carbon Dioxide 28 mmol/L (22.0-30.0); Chloride 107 mmol/L (98-107); Estimated Glomerular Filt Rate 85 ml/min (>60); GFR (African American) 103 ML/MIN (>60); Globulin 2.3 g/dL (1.3-3.2); Glucose 89 mg/dl (74-100); Potassium 3.9 mmoL/L (3.5-5.1); Sodium 141 mmol/L (136-145); Total Protein,Serum 6.2 g/dl (6.3-8.2)
[2023-09-07 13:24] LABS: 25-OH Vitamin D, Total 25.4 ng/mL (30-100)
[2023-09-07 13:54] LABS: Vitamin B12 444 pg/mL (239-931)
== END 2023-09-07 23:59 | disposition home or self-care (01) ==
LOC: LAB 11:31
PROVIDERS: PCP Nurse Practitioner Family; Visit Provider Nurse Practitioner Family
DX: M25.562 Pain in left knee (principal); M25.362 Other instability, left knee; I10 Essential (primary) hypertension; E55.9 Vitamin D deficiency, unspecified; Z68.31 Body mass index [BMI] 31.0-31.9, adult; F17.210 Nicotine dependence, cigarettes, uncomplicated
CPT/HCPCS: 73564; 80053; 82306; 82607; 85025

== ENCOUNTER 2023-09-25 16:10 | Outpatient (CLI) | payer BC, SELFPAY ==
--- NOTE | 2023-09-25 16:20 | MR_ITS ---
FINAL REPORT CLINICAL HISTORY: posterior knee pain, swelling post injury, unstabl FINDINGS: Multiplanar MR imaging of the left knee was performed without contrast. A tear is seen of the posterior horn of the medial meniscus. The lateral meniscus is intact. The anterior and posterior cruciate ligaments are intact. The medial collateral ligament and lateral ligamentous complex are intact. The patellar and quadriceps tendons are intact. There is no evidence of fracture. Mild degenerative changes are noted. There is bone marrow edema in the medial tibial plateau. Mild to moderate medial and patellofemoral chondromalacia is noted. A small joint effusion is seen. The musculature is intact. No soft tissue mass or cyst is identified. IMPRESSION: Tear of the posterior horn of the medial meniscus. 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 Authenticated and [facility]
== END 2023-09-25 23:59 | disposition home or self-care (01) ==
LOC: RAD 16:11
PROVIDERS: PCP Nurse Practitioner Family; Visit Provider Nurse Practitioner Family
DX: M25.362 Other instability, left knee (principal); M25.562 Pain in left knee; S89.92XA Unspecified injury of left lower leg, initial encounter
CPT/HCPCS: 73721

== ENCOUNTER 2023-09-28 18:00 | Outpatient (CLI) | payer BC, SELFPAY ==
[2023-09-28 18:24] LABS: Basophils # 0.1 K/mm3 (0-0.2); Basophils % 0.5 % (0.1-2.0); Eosinophils # 0.1 K/mm3 (0.0-0.4); Eosinophils % 1.6 % (0.1-12.0); Hematocrit 47.3 % (37.0-47.0); Hemoglobin 15.5 g/dL (12.2-16.2); Lymphocytes # 2.1 K/mm3 (0.7-4.5); Lymphocytes % 23.5 % (10-50); Mean Corpuscular HGB Conc 32.7 g/dL (31.8-35.4); Mean Corpuscular Volume 97.8 fl (81-99); Mean Platelet Volume 10.1 fl (7.4-10.4); Monocytes # 0.5 K/mm3 (0.1-1.0); Neutrophils % 68.3 % (37.0-80.0); Platelet Count 273 K/mm3 (142-424); Red Blood Count 4.83 M/mm3 (4.20-5.40); Red Cell Distribution Width 14.1 % (11.5-17.5); White Blood Count 8.8 K/mm3 (4.8-10.8)
[2023-09-28 19:14] LABS: Alanine Aminotransferase 21 U/L (12-78); Albumin Level 4.3 g/dl (3.5-5.0); Albumin/Globulin Ratio 1.7 (1.1-1.8); Alkaline Phosphatase 94 U/L (38-126); Anion Gap 14.3 mEq/L (5-15); Aspartate Amino Transferase 30 U/L (14-36); Bilirubin,Total 0.6 mg/dl (0.2-1.3); Blood Urea Nitrogen 11 mg/dl (7-17); Calcium 9.9 mg/dl (8.4-10.2); Carbon Dioxide 26 mmol/L (22.0-30.0); Chloride 102 mmol/L (98-107); Estimated Glomerular Filt Rate 64 ml/min (>60); GFR (African American) 77 ML/MIN (>60); Globulin 2.6 g/dL (1.3-3.2); Glucose 86 mg/dl (74-100); Potassium 4.3 mmoL/L (3.5-5.1); Sodium 138 mmol/L (136-145); Total Protein,Serum 6.9 g/dl (6.3-8.2)
[2023-09-28 19:25] LABS: 25-OH Vitamin D, Total 36.6 ng/mL (30-100)
[2023-09-28 19:44] LABS: Thyroid Stimulating Hormone 1.31 uIU/mL (0.465-4.68)
[2023-09-28 20:03] LABS: Vitamin B12 494 pg/mL (239-931)
== END 2023-09-28 23:59 | disposition home or self-care (01) ==
LOC: LAB.DROPOF 09-29 08:53
PROVIDERS: PCP Nurse Practitioner Family; Visit Provider Nurse Practitioner Family
DX: I10 Essential (primary) hypertension (principal); R79.89 Other specified abnormal findings of blood chemistry; M25.50 Pain in unspecified joint; E66.9 Obesity, unspecified; Z68.31 Body mass index [BMI] 31.0-31.9, adult; Z79.899 Other long term (current) drug therapy
CPT/HCPCS: 80053; 82306; 82607; 84443; 85025

== ENCOUNTER 2023-10-16 14:20 | Emergency (ER) | payer BC, SELFPAY ==
--- NOTE | 2023-10-16 14:32 | ED_ITS ---
Discharge Plan Disposition Patient Disposition: Home, Self-Care Condition: Good Prescriptions Prescriptions: New methylprednisolone 4 mg Tablets,Dose Pack 4 mg PO DIRECTED 6 Days Qty: 21 0RF Rx Instructions: Take 1 pack as directed for 6 days No Action folic acid 1 mg tablet 1 mg PO DAILY Patient Comments: TAKE ONE TABLET BY MOUTH EVERY DAY sulfasalazine 500 mg tablet,delayed release (DR/EC) 0.5 g PO DAILY metoclopramide HCl 10 mg tablet 10 mg PO .q8 PRN varenicline [Chantix Starting Month Box] 0.5 mg (11)- 1 mg (42) tablets,dose pack See Rx Instructions PO PER PKG DIR Qty: 53 0RF Rx Instructions: PO PER PKG DIR varenicline [Chantix Continuing Month Box] 1 mg tablet 1 mg PO BID Qty: 60 5RF Rx Instructions: Fill after completion of the starter pack albuterol sulfate 90 mcg/actuation HFA aerosol inhaler See Rx Instructions .ROUTE .COMPLEX Qty: 8.5 11RF Dose Instruction: INHALE TWO PUFFS BY MOUTH EVERY 4 HOURS NEEDED --SHAKE WELL BEFORE USE-- Rx Instructions: INHALE TWO PUFFS BY MOUTH EVERY 4 HOURS NEEDED --SHAKE WELL BEFORE USE-- trazodone 50 mg tablet 50 mg PO PRN diazepam 2 mg tablet 2 mg PO PRN fluticasone propionate 50 mcg/actuation spray,suspension 2 spray intranasal DAILY PRN Patient Comments: instill 1 SPRAY IN EACH NOSTRIL ONCE DAILY lisinopril-hydrochlorothiazide 20-12.5 mg tablet 1 tab PO DAILY 90 Days Qty: 90 2RF Trelegy Ellipta 200-62.5-25 mcg blister with device 1 inh inhalation DAILY 30 Days Qty: 60 2RF cyclobenzaprine 5 mg tablet 5 mg PO HS PRN (Reason: muscle spasm) 30 Days Qty: 30 2RF tramadol 50 mg tablet 50 mg PO Q6H PRN (Reason: pain) Qty: 30 0RF albuterol sulfate 1.25 mg/3 mL solution for nebulization See Rx Instructions .ROUTE .COMPLEX Qty: 90 11RF Dose Instruction: INHALE THE CONTENTS OF 1 VIAL VIA NEBULIZER EVERY 8 HOURS NEEDED Rx Instructions: INHALE THE CONTENTS OF 1 VIAL VIA NEBULIZER EVERY 8 HOURS NEEDED Probiotic 3 billion cell capsule 3,000 mmu cells PO DAILY 30 Days Qty: 30 0RF Rx Instructions: administer with a meal cetirizine 10 mg tablet 10 mg PO DAILY PRN (Reason: Allergy symptoms) Referrals Follow up/Referrals: Alma Gross APRN [Primary Care Provider] - See instructions Osiris Bee DPM [Staff Physician] - See instructions Activity Restrictions/Add. Instructions Additional Instructions/Restrictions: Rest the extremity, Elevate the extremity as tolerated while you are resting. Take the medication as directed. Don't start the oral steroids (medrol dose pack) until tomorrow. Follow up with Dr. Bee (podiatry) if you continue to have symptoms. I put in a referral but you need to call her office and schedule an appointment. Follow up with your regular doctor. GO TO THE ER FOR ANY WORSENING SYMPTOMS Clinical Impressions Clinical Impression: Ankle pain, right, Foot pain, right, Arthritis of right ankle Instructions Patient Instructions: Methylprednisolone, Ketorolac Injection, Dexamethasone Injection Discharge ED Provider: Domingo Abernathy [facility] General Stated complaint: right ankle pain Time Seen by Provider: 10/16/23 14:32 History of Present Illness Provider Complaint: She states that for the past 2 days she has had worsening left ankle and foot pain. She denies any injury. She states that she has a history of arthritis in that foot and ankle. She went to a graduation 3 days ago and had to stand on it for 6 hours. She believes that this irritated her ankle and foot. She denies any other complaints. Related Data Home Medications Medication Instructions Recorded Confirmed diazepam 2 mg tablet 2 mg PO PRN 01/24/23 10/02/23 trazodone 50 mg tablet 50 mg PO PRN 01/24/23 10/02/23 fluticasone propionate 50 2 spray intranasal DAILY PRN 04/17/23 10/02/23 mcg/actuation nasal spray,suspension cetirizine 10 mg tablet 10 mg PO DAILY PRN Allergy symptoms 06/08/23 10/02/23 metoclopramide HCl 10 mg tablet 10 mg PO .q8 PRN 06/20/23 10/02/23 folic acid 1 mg tablet 1 mg PO DAILY 07/06/23 10/02/23 sulfasalazine 500 mg 0.5 g PO DAILY 07/06/23 10/02/23 tablet,delayed release Previous Rx's Medication Instructions Recorded lactobacillus combination no.4 3 3,000 mmu cells PO DAILY 30 days 08/13/22 billion cell capsule (Probiotic) #30 caps fluticasone fur. 200 mcg-umeclid 1 inh inhalation DAILY 30 days #60 06/15/23 62.5 mcg-vilant 25 mcg ea inhalat.powder (Trelegy Ellipta) varenicline 0.5 mg (11)-1 mg (42) See Rx Instructions PO PER PKG DIR 08/16/23 tablets in a dose pack (Chantix #53 tabs Starting Month Box) varenicline 1 mg tablet (Chantix 1 mg PO BID #60 tabs 08/16/23 Continuing Month Box) cyclobenzaprine 5 mg tablet 5 mg PO HS PRN muscle spasm 30 08/21/23 days #30 tabs lisinopril 20 1 tab PO DAILY Hypertension 90 09/07/23 mg-hydrochlorothiazide 12.5 mg days #90 tabs tablet tramadol 50 mg tablet 50 mg PO Q6H PRN pain #30 tabs 09/14/23 albuterol sulfate 1.25 mg/3 mL See Rx Instructions .Route 10/02/23 solution for nebulization .COMPLEX #90 mL albuterol sulfate 90 mcg/actuation See Rx Instructions .Route 10/02/23 aerosol inhaler .COMPLEX #8.5 grams methylprednisolone 4 mg tablets in 4 mg PO DIRECTED 6 days #21 tabs 10/16/23 a dose pack Allergies Allergy/AdvReac Type Severity Reaction Status Date / Time No Known Allergies Allergy Verified 10/16/23 14:47 [facility] Disclaimer: The information contained in this section may have been updated after the patient was seen, as this information can be updated by other users. Medical History Grade I diastolic dysfunction Achilles rupture, right Herniated disc Allergic rhinitis Arthritis COPD (chronic obstructive pulmonary disease) Asthma, severe persistent Hypertension Surgical History History of carpal tunnel release Hx of cholecystectomy History of tubal ligation Family History Father Cancer Mother Hypertension Cancer Son Asthma Social History Smoking Status: Current every day smoker tobacco type: cigarettes packs per day: 1 second hand exposure: Yes alcohol intake: never substance use type: other current occupational status: other Travel in the last 8 weeks: None household members: other housing: house caffeine: Yes ROS Obtained: Yes All systems reviewed & no additional complaints except as documented Constitutional Constitutional: Denies chills and Denies fever(s) Eyes Eyes: Denies eye discharge ENT Ears, Nose, Mouth, and Throat: Denies dizziness, Denies otalgia and Denies sore throat Cardiovascular Cardiovascular: Denies chest pain Respiratory Respiratory: Denies shortness of breath, Denies chest congestion, Denies cough, Denies stridor and Denies wheezing Gastrointestinal Gastrointestingal: Denies nausea or vomiting Musculoskeletal Musculoskeletal: Reports as per HPI Integumentary/Breasts Skin/Breast: Denies redness, Denies rash and Denies wounds Neurologic Neurologic: Denies dizziness and Denies paresthesias Allergic/Immunologic Allergic/Immunologic: Denies wheezing Physical Exam General General appearance: alert and in no apparent distress Head Head exam: atraumatic, normocephalic and normal inspection Eye Eye exam: Present normal appearance, PERRL and EOMI ENT ENT exam: Present normal exam, normal oropharynx, mucous membranes moist, TM's normal bilaterally and normal external ear exam Neck Neck exam: Present normal inspection, full ROM and trachea midline; Absent meningismus or lymphadenopathy Chest Chest inspection: Present normal inspection and symmetric chest wall rise; Absent tenderness Respiratory Respiratory exam: Present normal lung sounds bilaterally; Absent respiratory distress Cardiovascular Cardiovascular exam: Present regular rate and normal rhythm; Absent JVD Abdominal Exam Abdominal exam: Present soft and normal bowel sounds; Absent distention, tenderness or guarding Extremities Exam Extremities exam: Present normal capillary refill; Absent calf tenderness Expanded Lower Extremity Exam Right: Hip/Pelvis exam: Present normal inspection and full ROM; Absent tenderness or pain on hip/pelvis palpation Upper leg exam: Present normal inspection and full ROM; Absent tenderness Knee exam: Present normal inspection, full ROM and knee extension intact; Absent tenderness, swelling, abrasion, laceration, ecchymosis, deformity, crepitus, dislocation, erythema, effusion, anterior drawer sign, posterior draw sign, pain with valgus, laxity with valgus, pain with varus or laxity with varus Lower leg exam: Present normal inspection, full ROM and Achilles tendon intact; Absent tenderness or Homans' sign Ankle exam: Present full ROM and tenderness; Absent swelling, abrasion, laceration, ecchymosis, deformity, crepitus, dislocation, erythema, tenderness over talofibular lig or anterior draw sign Foot/toe exam: Present full ROM and tenderness; Absent swelling, abrasion, laceration, ecchymosis, deformity, crepitus, dislocation, erythema, amputation, puncture wound, foreign body, calcaneal tenderness, tenderness at base of 5th metatarsal, nail avulsion or subungual hematoma Neurovascular/Tendon exam: Present normal capillary refill, normal 2-point discrimination and normal fine/light touch; Absent pulse deficit, motor deficit, sensory deficit, tendon deficit, extremity cold to touch or pallor Gait: observed and limited by pain Back Exam Back exam: Present normal inspection; Absent tenderness Neurological Exam Neurological exam: Present alert and oriented X3 Psychiatric Psychiatric exam: Present normal affect and normal mood Skin Skin exam: Present warm, dry, intact and normal color Lymphatic Lymphatic Findings: no adenopathy Medical Decision Making Medical Records Medical records reviewed: No I reviewed the patient's medical records. [place] Inquiry Pt receiving controlled substance: No
[2023-10-16 14:35] VITALS: BP 196/81; PULSE 113; RESP 18; TEMP 36.8; O2SAT 94; BMI 30.2
[2023-10-16] MEDS: KETOROLAC 60MG/2ML VIAL 30 MG IM (14:49)
[2023-10-16] MEDS: DEXAMETHASONE 4MG/ML 1ML VIAL 8 MG IM (14:49)
[2023-10-16 15:14] VITALS: BP 196/91; PULSE 18; RESP 18; TEMP 36.8; O2SAT 95
== END 2023-10-16 15:14 | disposition home or self-care (01) ==
PROVIDERS: Emergency Provider Nurse Practitioner Family; PCP Nurse Practitioner Family
DX: M79.671 Pain in right foot (principal); M25.571 Pain in right ankle and joints of right foot; M19.071 Primary osteoarthritis, right ankle and foot
CPT/HCPCS: 96372; 99212; 99214; G0463

== ENCOUNTER 2024-01-28 15:00 | Outpatient (CLI) | payer OTHER, SELFPAY ==
[2024-01-28 13:51] LABS: Basophils # 0.1 K/mm3 (0-0.2); Basophils % 0.8 % (0.1-2.0); Eosinophils # 0.2 K/mm3 (0.0-0.4); Hematocrit 44.1 % (37.0-47.0); Hemoglobin 13.9 g/dL (12.2-16.2); Lymphocytes # 1.5 K/mm3 (0.7-4.5); Lymphocytes % 23.8 % (10-50); Mean Corpuscular HGB Conc 31.6 g/dL (31.8-35.4); Mean Corpuscular Hemoglobin 31.3 pg (27.0-31.2); Mean Corpuscular Volume 98.8 fl (81-99); Mean Platelet Volume 9.7 fl (7.4-10.4); Monocytes # 0.4 K/mm3 (0.1-1.0); Monocytes % 6.5 % (1.7-9.3); Neutrophils # 4.2 K/mm3 (1.8-7.8); Neutrophils % 65.9 % (37.0-80.0); Platelet Count 264 K/mm3 (142-424); Red Blood Count 4.46 M/mm3 (4.20-5.40); Red Cell Distribution Width 13.7 % (11.5-17.5); White Blood Count 6.3 K/mm3 (4.8-10.8)
[2024-01-28 15:01] LABS: Alanine Aminotransferase 15 U/L (12-78); Albumin Level 3.6 g/dl (3.5-5.0); Albumin/Globulin Ratio 1.4 (1.1-1.8); Alkaline Phosphatase 72 U/L (38-126); Anion Gap 5.8 mEq/L (5-15); Aspartate Amino Transferase 25 U/L (14-36); Bilirubin,Total 0.7 mg/dl (0.2-1.3); Blood Urea Nitrogen 5 mg/dl (7-17); Calcium 9.1 mg/dl (8.4-10.2); Carbon Dioxide 29 mmol/L (22.0-30.0); Chloride 110 mmol/L (98-107); Estimated Glomerular Filt Rate 102 ml/min (>60); GFR (African American) 123 ML/MIN (>60); Globulin 2.5 g/dL (1.3-3.2); Glucose 76 mg/dl (74-100); Potassium 3.8 mmoL/L (3.5-5.1); Sodium 141 mmol/L (136-145); Total Protein,Serum 6.1 g/dl (6.3-8.2)
[2024-01-28 15:07] LABS: C-Reactive Protein 5.3 mg/L (0-4)
[2024-01-28 15:16] LABS: 25-OH Vitamin D, Total 22.1 ng/mL (30-100)
[2024-01-28 15:35] LABS: Thyroid Stimulating Hormone 1.02 uIU/mL (0.465-4.68)
[2024-01-28 15:54] LABS: Vitamin B12 328 pg/mL (239-931)
[2024-01-28 17:52] LABS: Hemoglobin A1C 4.8 % (4.0-6.0)
== END 2024-01-28 23:59 | disposition home or self-care (01) ==
LOC: LAB.DROPOF 15:01
PROVIDERS: PCP Nurse Practitioner Family; Visit Provider Nurse Practitioner Family
DX: I10 Essential (primary) hypertension (principal); L40.50 Arthropathic psoriasis, unspecified; R73.09 Other abnormal glucose; R79.89 Other specified abnormal findings of blood chemistry; Z72.0 Tobacco use
CPT/HCPCS: 80050; 80053; 82306; 82607; 83036; 84443; 85025; 86140

== ENCOUNTER → 2024-02-20 14:29 | Outpatient (CLI) | payer OTHER, SELFPAY | LOC: SL 14:31 | PROVIDERS: PCP Nurse Practitioner Family; Visit Provider Nurse Practitioner Family | DX: J44.9 Chronic obstructive pulmonary disease, unspecified (principal) | CPT/HCPCS: 94762 ==

== ENCOUNTER 2024-03-04 13:59 | Outpatient (RCR) | payer OTHER, SELFPAY | END 2024-05-30 15:00 | disposition home or self-care (01) | LOC: PULREHAB 13:59 | PROVIDERS: Visit Provider Nurse Practitioner Family | DX: J44.9 Chronic obstructive pulmonary disease, unspecified (principal); R06.09 Other forms of dyspnea | CPT/HCPCS: 94626 ==

== ENCOUNTER 2024-04-03 16:52 | Outpatient (CLI) | payer OTHER, SELFPAY ==
[2024-04-03 17:01] LABS: Alanine Aminotransferase 19 U/L (12-78); Albumin Level 3.8 g/dl (3.5-5.0); Albumin/Globulin Ratio 1.7 (1.1-1.8); Alkaline Phosphatase 76 U/L (38-126); Anion Gap 10.2 mEq/L (5-15); Aspartate Amino Transferase 29 U/L (14-36); Bilirubin,Total 0.5 mg/dl (0.2-1.3); Blood Urea Nitrogen 10 mg/dl (7-17); Calcium 9.1 mg/dl (8.4-10.2); Carbon Dioxide 27 mmol/L (22.0-30.0); Chloride 107 mmol/L (98-107); Chol/HDL Ratio 3.9 (1-3.5); Cholesterol 224 mg/dl (140-200); Estimated Glomerular Filt Rate 85 ml/min (>60); GFR (African American) 103 ML/MIN (>60); Globulin 2.2 g/dL (1.3-3.2); Glucose 77 mg/dl (74-100); HDL Cholesterol 57 mg/dl (40-60); Potassium 4.2 mmoL/L (3.5-5.1); Sodium 140 mmol/L (136-145); Triglycerides 177 mg/dl (30-150); VLDL Cholesterol 35 mg/dL (0-40)
[2024-04-03 17:13] LABS: C-Reactive Protein 5.5 mg/L (0-4); Direct LDL Cholesterol 139.74 mg/dL (100-129)
[2024-04-03 17:17] LABS: 25-OH Vitamin D, Total 38.5 ng/mL (30-100)
[2024-04-03 17:29] LABS: Basophils # 0.1 K/mm3 (0-0.2); Basophils % 0.8 % (0.1-2.0); Eosinophils # 0.2 K/mm3 (0.0-0.4); Eosinophils % 2.2 % (0.1-12.0); Hematocrit 44.6 % (37.0-47.0); Hemoglobin 15.4 g/dL (12.2-16.2); Lymphocytes # 1.9 K/mm3 (0.7-4.5); Lymphocytes % 25.8 % (10-50); Mean Corpuscular HGB Conc 34.5 g/dL (31.8-35.4); Mean Corpuscular Hemoglobin 31.7 pg (27.0-31.2); Mean Corpuscular Volume 91.9 fl (81-99); Monocytes # 0.5 K/mm3 (0.1-1.0); Monocytes % 7.4 % (1.7-9.3); Neutrophils # 4.6 K/mm3 (1.8-7.8); Neutrophils % 63.8 % (37.0-80.0); Platelet Count 276 K/mm3 (142-424); Red Blood Count 4.85 M/mm3 (4.20-5.40); Red Cell Distribution Width 13.6 % (11.5-17.5); White Blood Count 7.3 K/mm3 (4.8-10.8)
[2024-04-03 17:32] LABS: Thyroid Stimulating Hormone 0.84 uIU/mL (0.465-4.68)
[2024-04-03 17:52] LABS: Vitamin B12 342 pg/mL (239-931)
[2024-04-03 18:55] LABS: Hemoglobin A1C 5.1 % (4.0-6.0)
== END 2024-04-03 23:59 | disposition home or self-care (01) ==
LOC: LAB.DROPOF 16:52
PROVIDERS: Nurse Practitioner Family; PCP Nurse Practitioner Family; Visit Provider Nurse Practitioner Family
DX: R53.83 Other fatigue (principal)
CPT/HCPCS: 80050; 80053; 80061; 82306; 82607; 83036; 84443; 85025; 86140

== ENCOUNTER 2024-04-22 12:44 | Outpatient (CLI) | payer OTHER, SELFPAY ==
--- OUTSIDE RECORDS SUMMARY | 2024-04-22 12:46 | XMS_ITS | Encounter Summary ---
Author Organization [facility] Address [address] [id number] Care Team Providers Care Lan/Wan Engineer Name Role Phone Alma Gross SHERWIN Primary Care Provider [phone]- [phone] Encounter Details Date Type Department Care Team (Latest Contact Info) Description 05/30/2023 Travel Social History Tobacco Use Types Packs/Day Years Used Date Smoking Tobacco: Every Day Cigarettes 1 45.9 Started: 1980 Smokeless Tobacco: Never PHQ-2 Answer Date Recorded Patient Health Questionnaire-2 Score 0 05/30/2023 Comments Unknown Sex and Gender Information Value Date Recorded Sex Assigned at Female 06/21/2023 9:06 AM EST Legal Sex Female 9:29 AM EST Gender Identity Female 06/21/2023 9:06 AM EST Sexual Orientation Not on file documented as of this encounter Plan of Treatment Upcoming Encounters Date Type Department Care Team (Late st Contact Info) Description 05/19/2024 10:00 AM EST Appointment [facility] Pulmonary Function Testing [address] [place] [address] 05/27/2024 9:40 AM EST Office Visit [facility] [address] [place] [address] Rupal Gonzalez APRN [address] [place] [address] 07/23/2024 3:00 PM EST Office Visit [facility] [address] [place] [address] Matthew, May R, MANAGER RADIATION [address] [place] [address] documented as of this encounter Visit Diagnoses Not on filedocumented in this encounter Additional Health Concerns Assessment Noted Time A fall risk assessment has been complete d for the patient 05/30/2023 12:14 PM EST A Body Mass Index follow-up plan has been documented for the patient 05/30/2023 1:11 PM EST documented as of this encounter Care Teams Lan/Wan Engineer Relationship Specialty Start Date End Date Alma Gross APRN [address] [place] [address] PCP - General 05/08/23 documented as of this encounter
--- OUTSIDE RECORDS SUMMARY | 2024-04-22 12:46 | XMS_ITS | Encounter Summary ---
Author Organization [facility] Address [address] [place] [address] Care Team Providers Care Bull Chain Operator Name Role Phone Alma Gross SHERWIN Primary Care Provider [phone]- [phone] Encounter Details Date Type Department Care Team (Latest Contact Info) Description 10/01/2023 Travel Social History Tobacco Use Types Packs/Day Years Used Date Smoking Tobacco: Every Day Cigarettes 1 45.9 Started: 1980 Smokeless Tobacco: Never Alcohol Use Standard Drinks/Week Comments Yes 0 (1 standard drink = 0.6 oz pur e alcohol) social PHQ-2 Answer Date Recorded Patient Health Questionnaire-2 Score 0 10/01/2023 Comments Unknown Sex and Gender Information Value [...] H Pulmonary Function Testing [address] [place] [address] 05/27/2024 9:40 AM EST Office Visit [facility] [address] [place] [address] Rupal Gonzalez APRN [address] [place] [address] 07/23/2024 3:00 PM EST Office Visit [facility] [address] [place] [address] Matthew, May R, [employer] ASSEMBLER [address] [place] [address] documented as of this encounter Visit Diagnoses Not on filedocumented in this encounter Additional Health Concerns Assessment Noted Time A fall risk assessment has been complete d for the patient 10/01/2023 12:11 PM EDT A Body Mass Index follow-up plan has been documented for the patient 10/01/2023 12:47 PM EDT documented as of this encounter Care Teams Bull Chain Operator Relationship Specialty Start Date End Date Alma Gross, E[employer] ASSEMBLER [address] [place] [address] PCP - General 05/08/23 documented as of this encounter
--- OUTSIDE RECORDS SUMMARY | 2024-04-22 12:46 | XMS_ITS | Encounter Summary ---
Author Organization [facility] Address [address] [place] [address] Care Team Providers Care Fusion Juncture Grinder Name Role Phone Alma Gross APRN Primary Care Provider [phone] Reason for Visit * Reason Comments Consult * Consultation (Routine) - Closed Specialty Diagnoses / Procedures Referred By Joyce t Referred To Contact Rheumatology Diagnoses Pain in unspecified joint Alma Gross APRN [address] [place] [address] Phone: tel: fax: Referral ID Status Reason Start Date Expiration Date V isits Requested Visits Authorized [id number] Closed Specialty Services Required 04/25/2023 10/24/2024 1 1 Encounter Details Date Type Department Care Team (Late st Contact Info) Description 05/30/2023 11:50 AM EST Consult [place] [facility] [address] [place] [address] Matthew, May, SKIVING MACHINE OPERATOR [address] [place] [address] Polyarthralgia (Primary Dx); Pain in unspecified joint Social History Tobacco Use Types Packs/Day Years Used Date Smoking Tobacco: Every Day Cigarettes 1 45.9 Started: 1980 Smokeless Tobacco: Never Tobacco Cessation:Ready to Q uit: Not Asked; Counseling Given: Not Answered PHQ-2 Answer Date Recorded Patient Health Questionnaire-2 Score 0 05/30/2023 Comments Unknown Sex and Gender Information Value Date Recorded Sex Assigned at Female 06/21/2023 9:06 AM EST Legal Sex Female 9:29 AM EST Gender Identity Female 06/21/2023 9:06 AM EST Sexual Orientation Not on file documented as of this encounter Last Filed Vital Signs Vital Sign Reading Time Taken Comments Blood Pressure 136/76 05/30/2023 12:03 PM EST Pulse 80 05/30/2023 12:03 PM EST Temperature 36.7 ??C (98.1 ??F) 05/30/2023 12:[address] Respiratory Rate - - Oxygen Saturation 94% 05/30/2023 12:03 PM EST Inhaled Oxygen Concentration - - Weight 92.8 kg (204 lb 9.4 oz) 05/30/2023 12:03 PM EST Height 175.3 cm (5' 9 ) 05/30/2023 12:03 PM EST Body Mass Index 30.21 05/30/2023 12:03 PM EST documented in this encounter Miscellaneous Notes * Progress Notes - Cristel Castro APRN - 05/30/2023 11:50 AM EST Images from the original note were not included. Subjective Patient ID: Britney Coughlin is a 58 y.o. female with HPI Britney Coughlin is a 58 y.o. female with PMH significant for Achilles rupture, asthma severe persistent, COPD, hypertension,One kidney atrophy, hx of CTS surgery on right needs it on the left, and herniated disc, DDD , who presents as a new consult evaluation for joint pain . Pt was referred by Alma Gross APRN Referral note and labs reviewed: Uric acid 4.6, ESR 17, rheumatoid factor 11.6, SILVIA positive 1:1280 Joints: Bilateral knee pain. Has had a tear right achilles then rupture. Has had heel spur surgery.Had PRP injection in achilles and plantar fascia. Dr. Reed in [place]. Right knee mensicus tear. Currently in PT for achilles. She did not have surgery. Shoulder and arm pain. Hip pain. Low back pain. Failed Naproxen and Diclofenac Rheumatological ROS positive for dry mouth, rash ( scalp years ago, used medicated shampoo) ? Uveitis pt will bring records next visit. blood clots superficial blood clots in left leg ( never put on blood thinner) (unprovoked) Rest ROS negative for dry eyes, , oral ulcers, nasal ulcers, alopecia, serositis, psoriasis, photosensitivity, Raynaud's symptoms or digit ulcerations, renal disease or macroscopic hematuria, psychosis or delirium, seizures, IBD, or episcleritis, or miscarriages. Review of Systems Constitutional: Negative for chills and fever. HENT: Negative for mouth sores. Eyes: Negative for pain, redness and visual disturbance. Respiratory: Positive for cough. Negative for shortness of breath. Cardiovascular: Positive for palpitations. Negative for chest pain. Gastrointestinal: Positive for diarrhea. Negative for nausea. Occasional heartburn Genitourinary: Negative for hematuria. Musculoskeletal: Positive for arthralgias, back pain, joint swelling, neck pain and neck stiffness. See HPI Skin: Negative for rash. Neurological: Negative for seizures. Psychiatric/Behavioral: Negative for hallucinations. Family History: brother Psoriasis, Mother RA Social History: No known exposure to HCV or HIV. No hx IV drug use. No hx of tobacco use. No hx of alcohol abuse. 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 [place] The following portions of the chart were reviewed this encounter and updated as appropriate: Past Medical History: Diagnosis Date Achilles tendon tear Asthma Bunion Carpal tunnel syndrome COPD (chronic obstructive pulmonary disease) ([facility]) Fallen arches Gallstone Herniated cervical disc Hypertension Knee pain Osteoarthritis Plantar fasciitis Past Surgical History: Procedure Laterality Date CARPAL TUNNEL RELEASE Right TUBAL LIGATION Social History Socioeconomic History Marital status: Unknown Spouse name: Not on file Number of children: Not on file Years of education: Not on file Highest education level: Not on file Occupational History Not on file Tobacco Use Smoking status: Every Day Packs/day: 1.00 Years: 45.00 Additional pack years: 0.00 Total pack years: 45.00 Types: Cigarettes Start date: 1978 Smokeless tobacco: Never Substance and Sexual Activity Alcohol use: Not on file Drug use: Not on file Sexual activity: Not on file Other Topics Concern Not on file Social History Narrative Not on file Social Determinants of Health Financial Resource Strain: Not on file Food Insecurity: Not on file Transportation Needs: Not on file Physical Activity: Not on file Stress: Not on file Social Connections: Not on file Intimate Partner Violence: Not on file Housing Stability: Not on file Family History Problem Relation Name Age of Onset Heart disease Mother Cancer Mother Heart disease Father Cancer Father No Known Allergies Current Outpatient Medications Medication Sig Dispense Refill albuterol 1.25 MG/3ML nebulizer solution INHALE THE CONTENTS OF 1 VIAL VIA NEBULIZER EVERY 8 HOURS NEEDED albuterol 108 (90 Base) MCG/ACT inhaler INHALE TWO PUFFS BY MOUTH EVERY 4 HOURS NEEDED --SHAKE WELL BEFORE USE-- cetirizine (ZyrTEC) 10 MG tablet Take 1 tablet (10 mg) by mouth if needed. cyclobenzaprine (Flexeril) 5 MG tablet Take 1 tablet (5 mg) by mouth if needed for muscle spasms. diazePAM (Valium) 2 MG tablet Take 1 tablet (2 mg) by mouth every 12 (twelve) hours if needed for anxiety. diclofenac (Voltaren) 50 MG EC tablet Take 1 tablet (50 mg) by mouth 3 (three) times a day. fluticasone (Flonase) 50 MCG/ACT nasal spray Administer 2 sprays into each nostril if needed. lisinopril-hydroCHLOROthiazide 20-12.5 MG tablet TAKE TWO TABLETS BY MOUTH ONCE A DAY ondansetron (Zofran) 4 MG tablet Take 1 tablet (4 mg) by mouth. Tiotropium [place] Monohydrate (Spiriva Respimat) 2.5 MCG/ACT inhaler Inhale 2 puffs 1 (one) time each day. traZODone (Desyrel) 50 MG tablet Take 1 tablet (50 mg) by mouth at night if needed for sleep. No current facility-administered medications for this visit. Objective Vitals: 05/30/23 1203 BP: 136/76 Pulse: 80 Temp: 36.7 ??C (98.1 ??F) SpO2: 94% Physical Exam Vitals reviewed. Constitutional: General: She is not in acute distress. Appearance: Normal appearance. Eyes: Conjunctiva/sclera: Conjunctivae normal. Cardiovascular: Rate and Rhythm: Normal rate and regular rhythm. Heart sounds: No murmur heard. Pulmonary: Effort: Pulmonary effort is normal. Breath sounds: Normal breath sounds. Musculoskeletal: Comments: Digits and nails were normal. See homunculus. Joints had a normal ROM and normal alignment. Skin: General: Skin is warm. Findings: No rash. Neurological: General: No focal deficit present. Mental Status: She is alert. Psychiatric: Mood and Affect: Mood normal. There is currently no information documented on the homunculus. Go to the Rheumatology activity andcomplete the homunculus joint exam. Joint Exam 05/30/2023 No joint exam has been documented for this visit No data to display Swollen Joint Count: Swollen: -- 1 Tender Joint Count: Tender: -- 2 Patient global assessment: 5/10 Rapid 3 score: 30 CDAI:13 Assessment/Plan Diagnosis Plan 1. Polyarthralgia XR Sacroiliac Joints 3+ Views C-Reactive Protein, Plasma Cyclic Citrul Peptide Antibody IgG Rheumatoid Factor, Plasma Sedimentation Rate, Automated XR Foot Left 1 or 2 Views XR Foot Right 1 or 2 Views XR Hand and Wrist Bilateral 2 Views CBC and Differential Creatinine, Plasma Hepatic Function Panel Acute Hepatitis Panel HIV 1 & 2 Antibody/Antigen Screen Quantiferon TB Gold Plus 2. Pain in unspecified joint Ambulatory referral to Rheumatology Diagnosis Plan 1. Polyarthralgia Diff Dx: PsA, RA, SpA No synovitis Right achilles tender and swollen Brother with Psoriasis History sounds mixed mechanical/inflammatory XR Sacroiliac Joints 3+ Views C-Reactive Protein, Plasma Cyclic Citrul Peptide Antibody IgG Rheumatoid Factor, Plasma Sedimentation Rate, Automated XR Foot Left 1 or 2 Views XR Foot Right 1 or 2 Views XR Hand and Wrist Bilateral 2 Views CBC and Differential Creatinine, Plasma Hepatic Function Panel Acute Hepatitis Panel HIV 1 & 2 Antibody/Antigen Screen Quantiferon TB Gold Plus predniSONE (Deltasone) 5 MG tablet 3 week taper Discussed risks vs benefits of medication 2. COPD This affected my decision making process RTC 1 months Today, I personally spent 68 minutes on the encounter. The patient was counseled about diagnostic results, instruction for management, risk factors reduction, prognosis, compliance with visits and treatment, risks and benefits of treatments options. Prior notes (by external physicians) and results were reviewed by me with independent interpretation of labs and imaging. My note will be sent to PCPand other consulting physicians. Parts of this note were dictated using [employer] voice recognition software. As a result, errors may occur. When identified, these non profit director errors are corrected, but while every attempt is made to prevent/correct these, errors may still exist. Note to patient: The Century Cures Act makes medical notes like these available to patients inthe interest of transparency. However, be advised this is a medical document. It is intended as peer to peer communication. It is written in medical language and may contain abbreviations or verbiagethat are unfamiliar. It may appear blunt or direct. Medical documents are intended to carry relevant information, facts as evident, and the clinical opinion of the practitioner. ADDENDUM 06/05/2023 IMAGING 05/30/2023 FINDINGS: Right hand and wrist: There is some blunting of the ulnar styloid. Small ossific fragments are seenat the ulnar styloid with additional foci of mineralization along the ulnar aspect of the ulnocarpal joint. Mild to moderate thumb CMC osteoarthrosis. No carpal or metacarpal bone erosions. Interphalangeal joint space narrowing is seen most pronounced at the thumb. No phalangeal erosions. Left hand and wrist: Distal radius and ulna are unremarkable. No carpal or metacarpal erosions. Severe thumb CMC osteoarthrosis. No metacarpal erosions. Interphalangeal joint space narrowing most pronounced at the thumb interphalangeal joint. Sacroiliac joints: Overlying soft tissue and bowel gas obscures bone detail. No erosive change. Minimal osteophytosis at the inferior sacroiliac joints. Left foot: Moderate size calcaneal enthesophytes. Mild naviculocuneiform and minimal talonavicular osteoarthrosis. Slight hallux valgus on this nonweightbearing examination. No erosive changes. Right foot: Tiny superior and small plantar calcaneal enthesopathy. Thickening of the Achilles tendon shadow with ossification in the region of the distal Achilles tendon above the calcaneus. Enthesopathy of the fifth metatarsal base. No erosive changes of the foot. IMPRESSION: Mild to moderate right thumb CMC osteoarthrosis. Ossific fragments as well as additional mineralized densities along the ulnar styloid ulnocarpal joint on the right which may be related to prior injury. Severe left thumb CMC osteoarthrosis. No erosive changes involving the hands, wrists, sacroiliac joints, or feet. Right calcaneal enthesopathy with ossification in the region of the distal Achilles tendon which appears thickened. This is consistent with a least underlying tendinosis. Labs: CBC, creat and LFTs wnl TB neg HEP ABC, HIV neg ESR 30 Neg RF, CCP CRP documented in this encounter Plan of Treatment Upcoming Encounters Date Type Department Care Team (Late st Contact Info) Description 05/19/2024 10:00 AM EST Appointment [facility] Pulmonary Function Testing [address] [place] [address] 05/27/2024 9:40 AM EST Office Visit [facility] Medicine Specialties [address] [place] [address] Rupal Gonzalez S, SKIVING MACHINE OPERATOR [address] [place] [address] 07/23/2024 3:00 PM EST Office Visit [facility] Medicine Specialties [address] [place] [address] MatthewMay, [address] [place] [address] documented as of this encounter Results * XR Hand and Wrist Bilateral 2 Views (05/30/2023 2:22 PM EST) Anatomical Region Laterality Modality Hand, Wrist Bilateral Digital Radiogra phy Impressions 05/30/2023 2:52 PM EST Mild to moderate right thumb CMC osteoarthrosis. Ossific fragments as well as additional mineralized densities along the ulnar styloid ulnocarpal joint on the right which may be related to prior injury. Severe left thumb CMC osteoarthrosis. No erosive changes involving the hands, wrists, sacroiliac joints, or feet. Right calcaneal enthesopathy with ossification in the region of the distal Achilles tendon which appears thickened. This is consistent with a least underlying tendinosis. CRITICAL RESULT: ?? No. COMMUNICATION: Per this written report. Drafted by Seth Silva MD on 05/30/2023 2:48 PM Final report signed by Seth Silva MD on 05/30/2023 2:52 PM Narrative 05/30/2023 2:52 PM EST CLINICAL INDICATION: Left foot pain ? RA TECHNIQUE: XR FOOT LEFT 3+ VIEWS, XR HAND WRIST BILATERAL 2 VIEWS, XR SACROILIAC JOINTS 3+ VIEWS, XR FOOT RIGHT 3+ VIEWS COMPARISON: None. FINDINGS: Right hand and wrist: There is some blunting of the ulnar styloid. Small ossific fragments are seen at the ulnar styloid with additional foci of mineralization along the ulnar aspect of the ulnocarpal joint. Mild to moderate thumb CMC osteoarthrosis. No carpal or metacarpal bone erosions. Interphalangeal joint space narrowing is seen most pronounced at the thumb. No phalangeal erosions. Left hand and wrist: Distal radius and ulna are unremarkable. No carpal or metacarpal erosions. Severe thumb CMC osteoarthrosis. No metacarpal erosions. Interphalangeal joint space narrowing most pronounced at the thumb interphalangeal joint. Sacroiliac joints: Overlying soft tissue and bowel gas obscures bone detail. No erosive change. Minimal osteophytosis at the inferior sacroiliac joints. Left foot: Moderate size calcaneal enthesophytes. Mild naviculocuneiform and minimal talonavicular osteoarthrosis. Slight hallux valgus on this nonweightbearing examination. No erosive changes. Right foot: Tiny superior and small plantar calcaneal enthesopathy. Thickening of the Achilles tendon shadow with ossification in the region of the distal Achilles tendon above the calcaneus. Enthesopathy of the fifth metatarsal base. No erosive changes of the foot. Procedure Note Seth Silva MD - 05/30/2023 CLINICAL INDICATION: Left foot pain ? RA TECHNIQUE: XR FOOT LEFT 3+ VIEWS, XR HAND WRIST BILATERAL 2 VIEWS, XR SACROILIACJOINTS 3+ VIEWS, XR FOOT RIGHT 3+ VIEWS COMPARISON: None. FINDINGS: Right hand and wrist: There is some blunting of the ulnar styloid. Smallossific fragments are seen at the ulnar styloid with additional foci ofmineralization along the ulnar aspect of the ulnocarpal joint. Mild tomoderate thumb CMC osteoarthrosis. No carpal or metacarpal bone erosions.Interphalangeal joint space narrowing is seen most pronounced at thethumb. No phalangeal erosions. Left hand and wrist: Distal radius and ulna are unremarkable. No carpal ormetacarpal erosions. Severe thumb CMC osteoarthrosis. No metacarpalerosions. Interphalangeal joint space narrowing most pronounced at thethumb interphalangeal joint. Sacroiliac joints: Overlying soft tissue and bowel gas obscures bonedetail. No erosive change. Minimal osteophytosis at the inferiorsacroiliac joints. Left foot: Moderate size calcaneal enthesophytes. Mild naviculocuneiformand minimal talonavicular osteoarthrosis. Slight hallux valgus on thisnonweightbearing examination. No erosive changes. Right foot: Tiny superior and small plantar calcaneal enthesopathy.Thickening of the Achilles tendon shadow with ossification in the regionof the distal Achilles tendon above the calcaneus. Enthesopathy of thefifth metatarsal base. No erosive changes of the foot. IMPRESSION: Mild to moderate right thumb CMC osteoarthrosis. Ossific fragments as well as additional mineralized densities along theulnar styloid ulnocarpal joint on the right which may be related to priorinjury. Severe left thumb CMC osteoarthrosis. No erosive changes involving the hands, wrists, sacroiliac joints, orfeet. Right calcaneal enthesopathy with ossification in the region of the distalAchilles tendon which appears thickened. This is consistent with a leastunderlying tendinosis. CRITICAL RESULT: No. COMMUNICATION: Per this written report. Drafted by Seth Silva MD on 05/30/2023 2:48 PM Final report signed by Seth Silva MD on 05/30/2023 2:52 PM May Matthew SKIVING MACHINE OPERATOR IMG XR PROCEDURES Final Res ult * XR Sacroiliac Joints 3+ Views (05/30/2023 2:22 PM EST) Anatomical Region Laterality Modality Body, Spine, Pelvis Digital Radi ography Impressions 05/30/2023 2:52 PM EST Mild to moderate right thumb CMC osteoarthrosis. Ossific fragments as well as additional mineralized densities along the ulnar styloid ulnocarpal joint on the right which may be related to prior injury. Severe left thumb CMC osteoarthrosis. No erosive changes involving the hands, wrists, sacroiliac joints, or feet. Right calcaneal enthesopathy with ossification in the region of the distal Achilles tendon which appears thickened. This is consistent with a least underlying tendinosis. CRITICAL RESULT: ?? No. COMMUNICATION: Per this written report. Drafted by Seth Silva MD on 05/30/2023 2:48 PM Final report signed by Seth Silva MD on 05/30/2023 2:52 PM Narrative 05/30/2023 2:52 PM EST CLINICAL INDICATION: Left foot pain ? RA TECHNIQUE: XR FOOT LEFT 3+ VIEWS, XR HAND WRIST BILATERAL 2 VIEWS, XR SACROILIAC JOINTS 3+ VIEWS, XR FOOT RIGHT 3+ VIEWS COMPARISON: None. FINDINGS: Right hand and wrist: There is some blunting of the ulnar styloid. Small ossific fragments are seen at the ulnar styloid with additional foci of mineralization along the ulnar aspect of the ulnocarpal joint. Mild to moderate thumb CMC osteoarthrosis. No carpal or metacarpal bone erosions. Interphalangeal joint space narrowing is seen most pronounced at the thumb. No phalangeal erosions. Left hand and wrist: Distal radius and ulna are unremarkable. No carpal or metacarpal erosions. Severe thumb CMC osteoarthrosis. No metacarpal erosions. Interphalangeal joint space narrowing most pronounced at the thumb interphalangeal joint. Sacroiliac joints: Overlying soft tissue and bowel gas obscures bone detail. No erosive change. Minimal osteophytosis at the inferior sacroiliac joints. Left foot: Moderate size calcaneal enthesophytes. Mild naviculocuneiform and minimal talonavicular osteoarthrosis. Slight hallux valgus on this nonweightbearing examination. No erosive changes. Right foot: Tiny superior and small plantar calcaneal enthesopathy. Thickening of the Achilles tendon shadow with ossification in the region of the distal Achilles tendon above the calcaneus. Enthesopathy of the fifth metatarsal base. No erosive changes of the foot. Procedure Note Seth Silva MD - 05/30/2023 CLINICAL INDICATION: Left foot pain ? RA TECHNIQUE: XR FOOT LEFT 3+ VIEWS, XR HAND WRIST BILATERAL 2 VIEWS, XR SACROILIACJOINTS 3+ VIEWS, XR FOOT RIGHT 3+ VIEWS COMPARISON: None. FINDINGS: Right hand and wrist: There is some blunting of the ulnar styloid. Smallossific fragments are seen at the ulnar styloid with additional foci ofmineralization along the ulnar aspect of the ulnocarpal joint. Mild tomoderate thumb CMC osteoarthrosis. No carpal or metacarpal bone erosions.Interphalangeal joint space narrowing is seen most pronounced at thethumb. No phalangeal erosions. Left hand and wrist: Distal radius and ulna are unremarkable. No carpal ormetacarpal erosions. Severe thumb CMC osteoarthrosis. No metacarpalerosions. Interphalangeal joint space narrowing most pronounced at thethumb interphalangeal joint. Sacroiliac joints: Overlying soft tissue and bowel gas obscures bonedetail. No erosive change. Minimal osteophytosis at the inferiorsacroiliac joints. Left foot: Moderate size calcaneal enthesophytes. Mild naviculocuneiformand minimal talonavicular osteoarthrosis. Slight hallux valgus on thisnonweightbearing examination. No erosive changes. Right foot: Tiny superior and small plantar calcaneal enthesopathy.Thickening of the Achilles tendon shadow with ossification in the regionof the distal Achilles tendon above the calcaneus. Enthesopathy of thefifth metatarsal base. No erosive changes of the foot. IMPRESSION: Mild to moderate right thumb CMC osteoarthrosis. Ossific fragments as well as additional mineralized densities along theulnar styloid ulnocarpal joint on the right which may be related to priorinjury. Severe left thumb CMC osteoarthrosis. No erosive changes involving the hands, wrists, sacroiliac joints, orfeet. Right calcaneal enthesopathy with ossification in the region of the distalAchilles tendon which appears thickened. This is consistent with a leastunderlying tendinosis. CRITICAL RESULT: No. COMMUNICATION: Per this written report. Drafted by Seth Silva MD on 05/30/2023 2:48 PM Final report signed by Seth Silva MD on 05/30/2023 2:52 PM may Matthew SKIVING MACHINE OPERATOR IMG XR PROCEDURES Final Res ult * Quantiferon TB Gold Plus (05/30/2023 1:32 PM EST) Pathologist [facility] Quantiferon TB Gold Plus Result Negative Negative 05/31/2023 5:29 PM EST [facility] TB Nill Value 0.0245 IU/mL 05/31/2023 5:29 PM EST [facility] TB Antigen 1 0.0915 IU/mL 05/31/2023 5:29 PM EST [facility] TB Antigen 2 0.1055 IU/mL 05/31/2023 5:29 PM EST [facility] TB Mitogen 9.9755 IU/mL 05/31/2023 5:29 PM EST [facility] Blood Venous blood specimen / Unknown Venipuncture / Unknown 05/30/2023 1:32 PM EST 05/30/2023 1:34 PM EST May [facility] LAB BLOOD ORDERABLES Final Result Performing Organization Address City/[facility] Co de Phone Number [facility] [address] [place] [address] * HIV 1 & 2 Antibody/Antigen Screen (05/30/2023 1:32 PM EST) [facility] HIV 1 & 2 Antibody/Antigen Screen Non Reactive Non Reactive 05/30/2023 3:32 PM EST [facility] Comment:Screening for HIV 1 & 2 antibodies, and P24 antigen is NONREACTIVE. No confirmatory testing is required. Blood Venous blood specimen / Unknown Venipuncture / Unknown 05/30/2023 1:32 PM EST 05/30/2023 1:34 PM EST May R [facility] LAB BLOOD ORDERABLES Final Result [facility] [address] [place] [address] * Acute Hepatitis Panel (05/30/2023 1:32 PM EST) [facility] Hepatitis B Surf Antigen Negative Negative 05/30/2023 4:04 PM EST [facility] Hepatitis C Antibody Negative Negative 05/30/2023 4:04 PM EST [facility] Hepatitis A Antibody IgM Negative Negative 05/30/2023 4:04 PM EST [facility] Hepatitis B Core Antibody IgM Negative Negative 05/30/2023 4:04 PM EST [facility] Blood Venous blood specimen / Unknown Venipuncture / Unknown 05/30/2023 1:32 PM EST 05/30/2023 1:34 PM EST May Matthew [facility] LAB BLOOD ORDERABLES Final Result Performing Organization Address City/[facility] Co de Phone Number [facility] [address] [place] [address] * Hepatic Function Panel (05/30/2023 1:32 PM EST) Conjugated Bilirubin, Plasma <0.2 0.0 - 0.3 mg/dL 05/30/2023 3:26 PM EST [facility] Alkaline Phosphatase, Plasma 83 46 - 142 U/L 05/30/2023 3:26 PM EST [facility] Total Bilirubin, Plasma 0.2 0.2 - 1.1 mg/dL 05/30/2023 3:26 PM EST [facility] Albumin, Plasma 4.2 3.5 - 5.2 g/dL 05/30/2023 3:26 PM EST [facility] Total Protein 6.9 6.3 - 7.9 g/dL 05/30/2023 3:26 PM EST [facility] ALT, Plasma 13 10 - 35 U/L 05/30/2023 3:26 PM EST [facility] AST, Plasma 19 10 - 35 U/L 05/30/2023 3:26 PM EST [facility] Blood Venous blood specimen / Unknown Venipuncture / Unknown 05/30/2023 1:32 PM EST 05/30/2023 1:34 PM EST may Matthew [facility] LAB BLOOD ORDERABLES Final Result Performing Organization Address City/[facility] Co de Phone Number [facility] [address] [place] [address] * Creatinine, Plasma (05/30/2023 1:32 PM EST) Creatinine, Plasma 0.71 0.60 - 1.10 mg/dL 05/30/2023 3:26 PM EST [facility] eGFRcr 97.5 mL/min/1.7 3m*2 05/30/2023 3:26 PM EST [facility] Comment:Reported eGFRcr in m L/min/1.73m2 is based the CKD-EPI 2020 equation that does not use a race coefficient. Blood Venous blood specimen / Unknown Venipuncture / Unknown 05/30/2023 1:32 PM EST 05/30/2023 1:34 PM EST May R Matthew [employer]PER[employer] LAB BLOOD ORDERABLES Final Result [facility] [address] [place] [id number] * CBC and Differential (05/30/2023 1:32 PM EST) WBC Count 6.85 3.70 - 10.30 10*3/uL LAB HEMATOLOGY METHOD 05/30/2023 3:17 PM EST [facility] RBC Count 4.43 3.90 - 5.20 10*6/uL LAB HEMATOLOGY METHOD 05/30/2023 3:17 PM EST [facility] HGB 13.6 11.2 - 15.7 g/dL LAB HEMATOLOGY METHOD 05/30/2023 3:17 PM EST [facility] HCT 42.6 34.0 - 45.0 % LAB HEMATOLOGY METHOD 05/30/2023 3:17 PM EST [facility] Platelet Count 237 155 - 369 10*3/uL LAB HEMATOLOGY METHOD 05/30/2023 3:17 PM EST [facility] MCV 96 79 - 98 fL LAB HEMATOLOGY METHOD 05/30/2023 3:17 PM EST [facility] MCH 30.7 26.0 - 32.0 pg LAB HEMATOLOGY METHOD 05/30/2023 3:17 PM EST [facility] MCHC 31.9 30.7 - 35.5 g/dL LAB HEMATOLOGY METHOD 05/30/2023 3:17 PM EST [facility] RDW 13.6 11.5 - 14.5 % LAB HEMATOLOGY METHOD 05/30/2023 3:17 PM EST [facility] MPV 11.7 8.8 - 12.5 fL LAB HEMATOLOGY METHOD 05/30/2023 3:17 PM EST [facility] nRBC 0.0 <=0.0 per 100 WBCs LAB HEMATOLOGY METHOD 05/30/2023 3:17 PM EST [facility] Differential Type Automated LAB HEMATOLOGY METHOD 05/30/2023 3:17 PM EST [facility] Neutrophils % 61.0 % LAB HEMATOLOGY METHOD 05/30/2023 3:17 PM EST [facility] Lymphocytes % 29.0 % LAB HEMATOLOGY METHOD 05/30/2023 3:17 PM EST [facility] Monocytes % 8.0 % LAB HEMATOLOGY METHOD 05/30/2023 3:17 PM EST [facility] Eosinophils % 2.0 % LAB HEMATOLOGY METHOD 05/30/2023 3:17 PM EST [facility] Basophils % 0.0 % LAB HEMATOLOGY METHOD 05/30/2023 3:17 PM EST [facility] Immature Granulocytes % 0.0 % LAB HEMATOLOGY METHOD 05/30/2023 3:17 PM EST [facility] Neutrophils Absolute 4.13 1.60 - 6.10 10*3/uL LAB HEMATOLOGY METHOD 05/30/2023 3:17 PM EST [facility] Lymphocytes Absolute 1.98 1.20 - 3.90 10*3/uL LAB HEMATOLOGY METHOD 05/30/2023 3:17 PM EST [facility] Monocytes Absolute 0.56 0.30 - 0.90 10*3/uL LAB HEMATOLOGY METHOD 05/30/2023 3:17 PM EST [facility] Eosinophils Absolute 0.14 0.00 - 0.50 10*3/uL LAB HEMATOLOGY METHOD 05/30/2023 3:17 PM EST [facility] Basophils Absolute 0.03 0.00 - 0.10 10*3/uL LAB HEMATOLOGY METHOD 05/30/2023 3:17 PM EST [facility] Immature Granulocytes Absolute 0.01 0.00 - 0.06 10*3/uL LAB HEMATOLOGY METHOD 05/30/2023 3:17 PM EST [facility] Blood Venous blood specimen / Unknown Venipuncture / Unknown 05/30/2023 1:32 PM EST 05/30/2023 1:34 PM EST [facility] - 05/30/2023 3:17 PM EST Therapeutic decision making should be based on absolute values, rather than percentages. may Matthew [employer]PER[employer] LAB BLOOD ORDERABLES Final Result [facility] [address] [place] [address] * (ABNORMAL) Sedimentation Rate, Automated (05/30/2023 1:32 PM EST) Pathologist [facility] Sedimentation Rate 30(H) <30 mm/hr 2023 3:32 PM EST [facility] Blood Venous blood specimen / Unknown Venipuncture / Unknown 05/30/2023 1:32 PM EST 05/30/2023 1:34 PM EST [facility] Final Result Performing Organization Address City/[facility]/ZIP Co de Phone Number [facility]ALTH[facility] [address] [place] [address] * Rheumatoid Factor, Plasma (05/30/2023 1:32 PM EST) Pathologist [facility] Rheumatoid Factor, Plasma 11 <14 IU/mL 05/30/2023 3:26 PM EST [facility] Blood Venous blood specimen / Unknown Venipuncture / Unknown 05/30/2023 1:32 PM EST 05/30/2023 1:34 PM EST May R Matthew [employer]ACH[employer] OPER[employer] LAB BLOOD ORDERABLES Final Result Performing Organization Address [facility] Co de Phone Number [facility] [address] [place] [address] * Cyclic Citrul Peptide Antibody IgG (05/30/2023 1:32 PM EST) Pathologist [facility] Cyclic Citrul Peptide Antibody IgG <5.0 <=5.0 U/mL 05/30/2023 4:08 PM EST [facility] Blood Venous blood specimen / Unknown Venipuncture / Unknown 05/30/2023 1:32 PM EST 05/30/2023 1:34 PM EST [facility] Final Result Performing Organization Address City/[facility]/ZIP Co de Phone Number [facility] [address] [place] [address] * C-Reactive Protein, Plasma (05/30/2023 1:32 PM EST) Pathologist [facility] CRP, Plasma 5.5 <=8.0 mg/L 05/30/2023 3:26 PM EST HEALTH[facility]ARE LAB Blood Venous blood specimen / Unknown Venipuncture / Unknown 05/30/2023 1:32 PM EST 05/30/2023 1:34 PM EST Narrative [facility] - 05/30/2023 3:26 PM EST This CRP test is appropriate for assessment of infection, systemic inflammation and/or tissue injury. To assess cardiovascular disease risk order high sensitivity CRP (CRPH). may Matthew [employer]IV[employer] MACHINE OPERATOR LAB BLOOD ORDERABLES Final Result Performing Organization Address City/State/[facility] Co de Phone Number HEALTHCARE LAB [address] [place] [address] documented in this encounter Visit Diagnoses Diagnosis Polyarthralgia- Primary Pain in joint, multiple sites Pain in unspecified joint Polyarthralgia Pain in joint, multiple sites documented in this encounter Additional Health Concerns Assessment Noted Time A fall risk assessment has been complete d for the patient 05/30/2023 12:14 PM EST A Body Mass Index follow-up plan has been documented for the patient 05/30/2023 1:11 PM EST documented as of this encounter Care Teams Fusion Juncture Grinder Relationship Specialty Start Date End Date Alma Gross APRN [address] [place] [address] PCP - General 05/08/23 documented as of this encounter
--- OUTSIDE RECORDS SUMMARY | 2024-04-22 12:46 | XMS_ITS | Encounter Summary ---
Author Organization [facility] Address [address] [place] [address] Care Team Providers Care Retaining Room Cutter Name Role Phone Alma Gross Cathy COURTNEY Primary Care Provider [phone] Reason for Visit * Reason Comments Arthritis Encounter Details Date Type Department Care Team (Late st Contact Info) Description 10/01/2023 12:00 PM EDT Office Visit [facility] [address] [place] [address] Matthew, May R, VOLUNTEER SERVICES DIRECTOR [address] [place] [address] High risk medication use (Primary Dx); Psoriatic arthritis (CMS/HCC) Social History Tobacco Use Types Packs/Day Years Used Date Smoking Tobacco: Every Day Cigarettes 1 45.9 Started: 1980 Smokeless Tobacco: Never Tobacco Cessation:Ready to Q uit: Not Asked; Counseling Given: Not Answered Alcohol Use Standard Drinks/Week Comments Yes 0 [...] Sign Reading Time Taken Comments Blood Pressure 141/94 10/01/2023 12:06 PM EDT Pulse 98 10/01/2023 12:06 PM EDT Temperature 36.8 ??C (98.3 ??F) 10/01/2023 12:06 PM E DT Respiratory Rate 16 10/01/2023 12:06 PM EDT Oxygen Saturation 91% 10/01/2023 12:06 PM EDT Inhaled Oxygen Concentration - - Weight 94 kg (207 lb 3.7 oz) 10/01/2023 12:06 PM EDT Height 175.3 cm (5' 9 ) 10/01/2023 12:06 PM EDT Body Mass Index 30.6 10/01/2023 12:06 PM EDT documented in this encounter Miscellaneous Notes * Addendum Note - Linsey Castro APRN - 10/01/2023 12:00 PM EDTAddended by: LINSEY CASTRO on: 10/01/2023 12:48 PM Modules accepted: Orders * Progress Notes - Linsey Castro APRN - 10/01/2023 12:00 PM EDT Subjective Patient ID: Britney Coughlin is a 58 y.o. female with HPI Britney Coughlin is a 58 y.o. female with PMH significant for Achilles rupture, asthma severe persistent, COPD, hypertension,One kidney atrophy, hx of CTS surgery on right needs it on the left, and herniated disc, DDD , who presents as a follow up evaluation for joint pain . Referral note and labs reviewed: Uric acid 4.6, ESR 17, rheumatoid factor 11.6, SILVIA positive 1:1280nucleolar Rheum Med HX: SSZ started 06/2023-current Last visit:: Bilateral knee pain. Has had a tear right achilles then rupture. Has had heel spur surgery. Had PRP injection in achilles and plantar fascia. Dr. Reed in [place]. Right knee mensicus tear. Currently in PT for achilles. She did not have surgery. Shoulder and arm pain. Hip pain. Low back pain. Failed Naproxen and Diclofenac Knee pain. Foot pain. Did improve with Prednisone. Today: Left knee mensicus tear verified by MRI from [facility]. Has ortho appt pending. Feels the SSZ is helping. Taking 2 SSZ BID. Had labs drawn on Sunday from [facility]. Reviewed labs ok to continue. Right knee doing well. Low back pain and left CMC pain. Applied for SS disability. Back pain is worse with standing or doing housework. Initial Rheumatological ROS positive for dry mouth, rash ( scalp years ago, used medicated shampoo)? Uveitis pt will bring records next visit. blood clots superficial blood clots in left leg ( neverput on blood thinner) (unprovoked) Rest ROS negative [...] No hx of alcohol abuse. 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 [place] The following portions of the chart were reviewed this encounter and updated as appropriate: Past Medical History: Diagnosis Date Achilles tendon tear Asthma Bunion Carpal tunnel syndrome COPD (chronic obstructive pulmonary disease) ([facility]) Fallen arches Gallstone Herniated cervical disc Hypertension Knee pain Osteoarthritis Plantar fasciitis Past Surgical History: Procedure Laterality Date CARPAL TUNNEL RELEASE Right TUBAL LIGATION Social History Socioeconomic History Marital status: Spouse name: Not on file Number of children: Not on file Years of education: Not on file Highest education level: Not on file Occupational History Not on file Tobacco Use Smoking status: Every Day Current packs/day: 1.00 Average packs/day: 1 pack/day for 45.4 years (45.4 ttl pk-yrs) Types: Cigarettes Start date: 1978 Smokeless tobacco: Never Vaping Use Vaping status: Never Used Substance and Sexual Activity Alcohol use: Yes Comment: social Drug use: Never Sexual activity: Not on file Other Topics [...] 2 sprays into each nostril if needed. folic acid (Folvite) 1 MG tablet Take 1 tablet (1 mg) by mouth 1 (one) time each day. 90 tablet 2 lisinopril-hydroCHLOROthiazide 20-12.5 MG tablet TAKE TWO TABLETS BY MOUTH ONCE A DAY metoclopramide (Reglan) 10 MG tablet 1 tablet (10 mg). ondansetron (Zofran) 4 MG tablet Take 1 tablet (4 mg) by mouth. predniSONE (Deltasone) 5 MG tablet 3 tablets daily x 1 week, 2 tablets daily x1 week then one tablet daily 49 tablet 0 sulfaSALAzine (Azulfidine) 500 MG EC tablet Do not crush, chew, or split. One pill daily x1 week then one pill twice daily x1 week then one in am and two tablets in PM x1 week then 2 tablets twice daily. Take with food 120 tablet 2 Tiotropium Lenore Monohydrate (Spiriva Respimat) 2.5 MCG/ACT inhaler Inhale 2 puffs 1 (one) time each day. traMADol (Ultram) 50 MG tablet 1 tablet (50 mg). traZODone (Desyrel) 50 MG tablet Take 1 tablet (50 mg) by mouth at night if needed for sleep. Trelegy Ellipta 200-62.5-25 MCG/ACT aerosol powder Inhale 1 puff. No current facility-administered medications for this visit. Objective Vitals: 10/01/23 1206 BP: (!) 141/94 Pulse: 98 Resp: 16 Temp: 36.8 ??C (98.3 ??F) SpO2: 91% Physical Exam Vitals reviewed. Constitutional: General: She is not in acute distress. Appearance: Normal appearance. Eyes: Conjunctiva/sclera: Conjunctivae normal. Cardiovascular: Rate and Rhythm: Normal rate and regular rhythm. Heart sounds: No murmur heard. Pulmonary: Effort: Pulmonary effort is normal. Breath sounds: Normal breath sounds. Musculoskeletal: Comments: Digits were normal. Pitting of the fingernails. See homunculus. Joints had a normal ROM and normal alignment. Tender over the SI joint. Skin: General: Skin is warm. Findings: No rash. Neurological: General: No focal deficit present. Mental Status: She is alert. Psychiatric: Mood and Affect: Mood normal. There is currently no information documented on the homunculus. Go to the Rheumatology activity andcomplete the homunculus joint exam. There is currently no information documented on the homunculus. Go to the Rheumatology activity andcomplete the homunculus joint exam. There is currently no information documented on the homunculus. Go to the Rheumatology activity andcomplete the homunculus joint exam. Joint Exam 10/01/2023 No joint exam has been documented for this visit 05/30/2023 06/27/2023 RAMIREZ-28 (ESR) -- -- RAMIREZ-28 (CRP) -- -- Tender (RAMIREZ-28) Swollen (RAMIREZ-28) 0 Provider Global -- -- Patient Global -- -- ESR -- -- CRP -- -- Swollen Joint Count: Swollen: -- 0 Tender Joint Count: Tender: -- Patient global assessment: 7.5/10 Rapid 3 score: 19.5/30 CDAI: IMAGING 05/30/2023 FINDINGS: Right hand and wrist: [...] is consistent with a least underlying tendinosis. Assessment/Plan Diagnosis Plan 1. High risk medication use CBC and Differential Creatinine, Plasma Hepatic Function Panel C-Reactive Protein, Plasma Diagnosis Plan 1. PsA/ SILVIA positive 1:1280 nucleolar Diff Dx: PsA, RA, SpA No synovitis Right achilles tender and swollen ( hx of tenosynovitis, tendon tear,) Brother with Psoriasis History sounds mixed mechanical/inflammatory + enthesopathy Pt denied Raynaud's Lockwood criteria + family hx + nail dystrophy Neg RF (Last visit) predniSONE (Deltasone) 5 MG tablet 3 week taper ( took a week to see any affect and actually her PCP increased dose) Finally it started to help. Discussed risks vs benefits of medication CBC, creat and LFTs wnl TB neg HEP ABC, HIV neg ESR 30 Neg RF, CCP CRP Active with PT for low back pain MRI showed DDD Lumbar Spine Continue SSZ titrate slowly Toxicities of Sulfasalazine We went over the following toxicities and relevant precautions: - Most common side effect is nausea and abdominal discomfort, which can occur in 1/3 of patients inearly course of treatment - may cause photosensitivity - importance of wearing sunscreen/ sun protection - Contraindicated in patients with sulfa allergy Lab monitoring with blood counts, liver, and kidney function every 2-4 weeks the first 3 months, every 8 weeks during the next 3 months, and every 3 months after 2. COPD This affected my decision making process On Trelegy Followed by PCP 3. Severe Vit D def Pt showed me on her phone . It didn't even register <12.5 Pt is now taking 10,000 IU of Vitamin D3 in daily and followed by PCP 4. High risk medication monitoring SSZ -CBC, CMP, q3 months -HIV neg 05/2023 -HBV neg 05/2023 -HCV neg 05/2023 -TB Quant Gold -Prevnar -Pneumovax -COVID HCQ - eye exam Counseled on importance of contraception RTC 6 months ( labs in 3 months) Today, I personally spent minutes on the encounter. The patient was counseled about diagnostic results, instruction for management, risk factors reduction, prognosis, compliance with visits and treatment, risks and benefits of treatments options. Prior notes (by external physicians) and results were reviewed by me with independent interpretation of labs and imaging. My note will be sent to PCP and other consulting physicians. Parts of this note were dictated using [employer] Direct voice recognition software. As a result, errors may occur. When identified, these manufacturing intern errors are corrected, but while every attempt [...] and the clinical opinion of the practitioner. documented in this encounter Plan of Treatment Upcoming Encounters Date Type Department Care Team (Late st Contact Info) Description 05/19/2024 10:00 AM EST Appointment [facility] Pulmonary Function Testing [address] [place] [address] 05/27/2024 9:40 AM EST Office Visit [facility] Medicine Specialties [address] [place] [address] Rupal Gonzalez S, VOLUNTEER SERVICES DIRECTOR [address] [place] [address] 07/23/2024 3:00 PM EST Office Visit [facility] Medicine Specialties [address] [place] [address] Matthew May R, VOLUNTEER SERVICES DIRECTOR [address] [place] [address] documented as of this encounter Results * Hepatic Function Panel (04/09/2024 12:55 PM EST) Conjugated Bilirubin, Plasma <0.2 0.0 - 0.3 mg/dL 04/09/2024 3:08 PM EST [facility] Alkaline Phosphatase, Plasma 86 46 - 142 U/L 04/09/2024 3:08 PM EST [facility] Total Bilirubin, Plasma 0.3 0.2 - 1.1 mg/dL 04/09/2024 3:08 PM EST [facility] Albumin, Plasma 4.1 3.5 - 5.2 g/dL 04/09/2024 3:08 PM EST [facility] Total Protein 6.7 6.3 - 7.9 g/dL 04/09/2024 3:08 PM EST [facility] ALT, Plasma 17 10 - 35 U/L 04/09/2024 3:08 PM EST [facility] AST, Plasma 20 10 - 35 U/L 04/09/2024 3:08 PM EST [facility] Blood Venous blood specimen / Unknown Venipuncture / Unknown 04/09/2024 12:55 PM EST 04/09/2024 12:55 PM EST us May R Matthew VOLUNTEER SERVICES DIRECTOR LAB BLOOD ORDERABLES Final Result Performing Organization Address City/[facility]/ZIP Co de Phone Number [facility] [address] [place] [address] * Creatinine, Plasma (04/09/2024 12:55 PM EST) Creatinine, Plasma 0.75 0.60 - 1.10 mg/dL 04/09/2024 3:08 PM EST [facility] eGFRcr 90.7 mL/min/1.7 3m*2 04/09/2024 3:08 PM EST [facility] Comment:Reported eGFRcr in m L/min/1.73m2 is based the CKD-EPI 2020 equation that does not use a race coefficient. Blood Venous blood specimen / Unknown Venipuncture / Unknown 04/09/2024 12:55 PM EST 04/09/2024 12:55 PM EST us May R Matthew COURTNEY LAB BLOOD ORDERABLES Final Result Performing Organization Address City/[facility]/ZIP Co de Phone Number [facility] [address] [place] [address] * (ABNORMAL) CBC and Differential (04/09/2024 12:55 PM EST) WBC Count 6.84 3.70 - 10.30 10*3/uL LAB HEMATOLOGY METHOD 04/09/2024 3:02 PM EST [facility] RBC Count 4.84 3.90 - 5.20 10*6/uL LAB HEMATOLOGY METHOD 04/09/2024 3:02 PM EST [facility] HGB 14.8 11.2 - 15.7 g/dL LAB HEMATOLOGY METHOD 04/09/2024 3:02 PM [facility] HCT 45.7(H) 34.0 - 45.0 % LAB HEMATOLOGY METHOD 04/09/2024 3:02 PM [facility] Platelet Count 247 155 - 369 10*3/uL LAB HEMATOLOGY METHOD 04/09/2024 3:02 PM [facility] MCV 94 79 - 98 fL LAB HEMATOLOGY METHOD 04/09/2024 3:02 PM [facility] MCH 30.6 26.0 - 32.0 pg LAB HEMATOLOGY METHOD 04/09/2024 3:02 PM [facility] MCHC 32.4 30.7 - 35.5 g/dL LAB HEMATOLOGY METHOD 04/09/2024 3:02 PM [facility] RDW 12.8 11.5 - 14.5 % LAB HEMATOLOGY METHOD 04/09/2024 3:02 PM [facility] MPV 11.3 8.8 - 12.5 fL LAB HEMATOLOGY METHOD 04/09/2024 3:02 PM [facility] nRBC 0.0 <=0.0 per 100 WBCs LAB HEMATOLOGY METHOD 04/09/2024 3:02 PM [facility] Differential Type Automated LAB HEMATOLOGY METHOD 04/09/2024 3:02 PM [facility] Neutrophils % 60 % LAB HEMATOLOGY METHOD 04/09/2024 3:02 PM [facility] Lymphocytes % 31 % LAB HEMATOLOGY METHOD 04/09/2024 3:02 PM [facility] Monocytes % 6 % LAB HEMATOLOGY METHOD 04/09/2024 3:02 PM [facility] Eosinophils % 2 % LAB HEMATOLOGY METHOD 04/09/2024 3:02 PM [facility] Basophils % 1 % LAB HEMATOLOGY METHOD 04/09/2024 3:02 PM [facility] Immature Granulocytes % 0 % LAB HEMATOLOGY METHOD 04/09/2024 3:02 PM [facility] Neutrophils Absolute 4.12 1.60 - 6.10 10*3/uL LAB HEMATOLOGY METHOD 04/09/2024 3:02 PM [facility] Lymphocytes Absolute 2.10 1.20 - 3.90 10*3/uL LAB HEMATOLOGY METHOD 04/09/2024 3:02 PM [facility] Monocytes Absolute 0.42 0.30 - 0.90 10*3/uL LAB HEMATOLOGY METHOD 04/09/2024 3:02 PM EST [facility] Eosinophils Absolute 0.13 0.00 - 0.50 10*3/uL LAB HEMATOLOGY METHOD 04/09/2024 3:02 PM EST [facility] Basophils Absolute 0.05 0.00 - 0.10 10*3/uL LAB HEMATOLOGY METHOD 04/09/2024 3:02 PM EST [facility] Immature Granulocytes Absolute 0.02 0.00 - 0.06 10*3/uL LAB HEMATOLOGY METHOD 04/09/2024 3:02 PM EST [facility] Blood Venous blood specimen / Unknown Venipuncture / Unknown 04/09/2024 12:55 PM EST 04/09/2024 12:55 PM EST Narrative [facility] - 04/09/2024 3:02 PM EST Therapeutic decision making should be based on absolute values, rather than percentages. May R Matthew VOLUNTEER SERVICES DIRECTOR LAB BLOOD ORDERABLES Final Result [facility] [address] [place] [address] documented in this encounter Visit Diagnoses Diagnosis High risk medication use- Primary Psoriatic arthritis (CMS/HCC) Psoriatic arthropathy documented in this encounter Additional Health Concerns Assessment Noted Time A fall risk assessment has been complete d for the patient 10/01/2023 12:11 PM EDT A Body Mass Index follow-up plan has been documented for the patient 10/01/2023 12:47 PM EDT documented as of this encounter Care Teams Retaining Room Cutter Relationship Specialty Start Date End Date Alma Gross APRN [address] [place] [address] PCP - General 05/08/23 documented as of this encounter
--- OUTSIDE RECORDS SUMMARY | 2024-04-22 12:46 | XMS_ITS | Clinical Summary ---
Author Organization [facility] Address [address] [place] [address] Care Team Providers Care Traveling Clerk Name Role Phone GrossHeather sharmanaima Morgan APRN Primary Care Provider [phone] Allergies No known active allergies Medications albuterol 1.25 MG/3ML nebulizer solution INHALE THE CONTENTS OF 1 VIAL VIA NEBULIZER EVERY 8 HOURS NEEDED 12/27/19 23 Active albuterol 108 (90 Base) MCG/ACT inhaler INHALE TWO PUFFS BY MOUTH EVERY 4 HOURS NEEDED --SHAKE WELL BEFORE USE-- 05/04/20 23 Active cetirizine (ZyrTEC) 10 MG tablet Take 1 tablet (10 mg) by mouth if needed. 08/14/19 23 Active cyclobenzaprin e (Flexeril) 5 MG tablet Take 1 tablet (5 mg) by mouth if needed for muscle spasms. 01/25/20 23 Active diazePAM (Valium) 2 MG tablet Take 1 tablet (2 mg) by mouth every 12 (twelve) hours if needed for anxiety. 01/25/20 23 Active diclofenac (Voltaren) 50 MG EC tablet Take 1 tablet (50 mg) by mouth 3 (three) times a day. 05/04/20 23 Active fluticasone (Flonase) 50 MCG/ACT nasal spray Administer 2 sprays into each nostril if needed. 04/17/20 23 Active lisinopril-hyd roCHLOROthiazi de 20-12.5 MG tablet TAKE TWO TABLETS BY MOUTH ONCE A DAY 07/28/19 23 Active ondansetron (Zofran) 4 MG tablet Take 1 tablet (4 mg) by mouth. 06/05/19 23 Active traZODone (Desyrel) 50 MG tablet Take 1 tablet (50 mg) by mouth at night if needed for sleep. Active Trelegy Ellipta 200-62.5-25 MCG/ACT aerosol powder Inhale 1 puff. 06/16/19 24 Active metoclopramide (Reglan) 10 MG tablet 1 tablet (10 mg). 06/20/19 24 Active traMADol (Ultram) 50 MG tablet 1 tablet (50 mg). 06/19/19 24 Active ipratropium-al buterol (Duo-Neb) 0.5-2.5 mg/3 mL nebulizer solution 3 mL. 01/28/20 24 Active meclizine (Antivert) 25 MG tablet TAKE 1 TABLET BY MOUTH THREE TIMES DAILY NEEDED FOR DIZZINESS 03/07/20 24 Active varenicline (Chantix) 1 MG tablet TAKE 1 TABLET BY MOUTH TWICE DAILY AFTER COMPLETION OF STARTER PACK 01/28/20 24 Active folic acid (Folvite) 1 MG tabletIndicati ons:High risk medication use Take 1 tablet (1 mg) by mouth 1 (one) time each day. 90 tablet 04/09/20 24 Active predniSONE (Deltasone) 5 MG tabletIndicati ons:Psoriatic arthritis (CMS/HCC) 3 tablets daily x 1 week, 2 tablets daily x1 week then one tablet daily 49 tablet 04/09/20 24 Active nicotine (Nicoderm CQ) 14 MG/24HR patchIndicatio ns:Encounter for smoking cessation counseling Place 1 patch on the skin 1 (one) time each day at the same time. 28 patch 04/09/20 24 Active nicotine (Nicoderm CQ) 7 MG/24HR patchIndicatio ns:Encounter for smoking cessation counseling Place 1 patch on the skin 1 (one) time each day at the same time. Start after completing 14 mg nicoderm patch. Do not smoke while wearing patch. 14 patch 1 04/09/20 24 Active famotidine (Pepcid) 20 MG tabletIndicati ons:Gastroesop hageal reflux disease, unspecified whether esophagitis present Take 1 tablet (20 mg) by mouth 2 (two) times a day. 180 tablet 2 04/09/20 24 Active Tiotropium [place] Monohydrate (Spiriva Respimat) 2.5 MCG/ACT inhaler Inhale 2 puffs 1 (one) time each day. Discontinued predniSONE (Deltasone) 5 MG tabletIndicati ons:Polyarthra lgia 3 tablets daily x 1 week, 2 tablets daily x1 week then one tablet daily 49 tablet 05/30/19 Discontinued(Re order) folic acid (Folvite) 1 MG tabletIndicati ons:High risk medication use Take 1 tablet (1 mg) by mouth 1 (one) time each day. 90 tablet 02/22/20 Discontinued(Re order) sulfaSALAzine 500 MG PO EC tabletIndicati ons:High risk medication use,Psoriatic arthritis (CMS/HCC) Take 2 tablets (1,000 mg) by mouth 2 (two) times a day. Do not crush, chew, or split.. Take with food 360 tablet 02/22/20 Discontinued(Re order) sulfaSALAzine 500 MG PO EC tabletIndicati ons:High risk medication use,Psoriatic arthritis (CMS/HCC) Take 2 tablets (1,000 mg) by mouth 2 (two) times a day. Do not crush, chew, or split.. Take with food 360 tablet 04/09/20 Discontinued(Ot her) Active Problems No known active problems Encounters Date Type Department Care Team Description 04/09/2024 1:01 PM EST - 04/09/2024 11:59 PM EST Hospital Encounter [facility] [address], [address] [place] [address] Shortness of breath; Chronic obstructive pulmonary disease, unspecified COPD type (CMS/HCC); Acute pain of right shoulder Discharge Disposition: Home or Self Care 04/09/2024 10:00 AM EST Office Visit [facility] [address], [address] [place] [address] Matthew, Cristel R, CAREER TRANSITION SPECIALIST Psoriatic arthritis (CMS/HCC) (Primary Dx); High risk medication use; Shortness of breath; Raynaud's phenomenon without gangrene; Polyarthralgia; Encounter for smoking cessation counseling; Chronic obstructive pulmonary disease, unspecified COPD type (CMS/HCC); Acute pain of right shoulder; Gastroesophageal reflux disease, unspecified whether esophagitis present 04/09/2024 Travel 04/08/2024 Travel 02/22/2024 Orders Only [facility] [address], [address] [place] [address] Martell Rendon, PharmD High risk medication use; Psoriatic arthritis (CMS/[facility]) from Last 3 Months Family History Medical History Relation Name Comments Cancer Father Heart disease Father Cancer Mother Heart disease Mother Relation Name Status Comments Father Mother Social History Tobacco Use Types Packs/Day Years Used Date Smoking Tobacco: Every Day Cigarettes 1 45.9 Started: 1978 Smokeless Tobacco: Never Tobacco Cessation:Ready to Q uit: Not Asked; Counseling Given: Not Answered Alcohol Use Standard Drinks/Week Comments Not Currently 0 (1 standard drink = 0.6 oz pur e alcohol) social PHQ-2 Answer Date Recorded Patient Health Questionnaire-2 Score 0 04/09/2024 Comments Unknown Sex and Gender Information Value Date Recorded Sex Assigned at Female 06/21/2023 9:06 AM EST Legal Sex Female 9:29 AM EST Gender Identity Female 06/21/2023 9:06 AM EST Sexual Orientation Not on file Last Filed Vital Signs Vital Sign Reading Time Taken Comments Blood Pressure 153/86 04/09/2024 10:58 AM EST Pulse 83 04/09/2024 10:58 AM EST Temperature 36.6 ??C (97.9 ??F) 04/09/2024 10:[address] Respiratory Rate 16 04/09/2024 10:58 AM EST Oxygen Saturation 93% 04/09/2024 10:58 AM EST Inhaled Oxygen Concentration - - Weight 101 kg (222 lb 7.1 oz) 04/09/2024 10:58 A M EST Height 175.3 cm (5' 9 ) 04/09/2024 10:58 AM EST Body Mass Index 32.85 04/09/2024 10:58 AM EST Plan of Treatment Upcoming Encounters Date Type Department Care Team (Late st Contact Info) Description 05/19/2024 10:00 AM EST Appointment [facility] Pulmonary Function Testing [address] [place] [address] 05/27/2024 9:40 AM EST Office Visit [facility] [address], [address] [place] [address] Rupal Gonzalez S, CAREER TRANSITION SPECIALIST [address] [place] [address] 07/23/2024 3:00 PM EST Office Visit [facility] [address], [address] [place] [address] MatthewCristel doe R, CAREER TRANSITION SPECIALIST [address] [place] [address] Health Maintenance Due Date Last Done Comments [facility]-/Child/Adol SDOH Screenings 1963 [facility]-Pneumococcal Vaccine: Pediatrics (0 to 5 Years) and At-Risk Patients (6 to 64 Years) (1 of 2 - PCV) 1969 [facility]- SDOH Screenings 1981 [facility]-Adult SDOH Screenings 1981 [facility]-DTaP,Tdap,and Td Vaccines (1 - Tdap) 1982 [facility]-Zoster Vaccines (1 of 2) 1982 [facility]-Pap Smear 1984 [facility]-Cervical Cancer Screening 1993 [facility]-HPV/Cotest 1993 CT Colonography 2008 Colonoscopy 2008 FIT-DNA 2008 FIT 2008 FOBT 2008 Sigmoidoscopy 2008 [facility]-Colorectal Cancer Screening 2008 [facility]-Breast Cancer Screening 2013 [facility]-Lung Cancer Screening 2013 [facility]-RSV Vaccine: 60+ Years or (1 - Risk 60-74 years 1-dose series) 2023 [id number] Vaccine ( - 2023- season) 2024 02/05/2024, 03/25/2021, 06/25/2020, Additional history exists [facility]-Depression Screening 04/09/2025 04/09/2024 [facility]-HIV Screening Completed 05/30/2023 [facility]-Hepatitis C Screening Completed 05/30/2023 [facility]-Influenza Vaccine Completed 01/28/2024 [facility]-Obesity Intervention Completed 024, 10/01/2023, 06/27/2023, Additional history exists [facility]-HIB Vaccines Aged Out No longer e ligible based on patient's age to complete this topic [facility]-HPV Vaccines Aged Out No longer e ligible based on patient's age to complete this topic [facility]-Hepatitis A Vaccines Aged Out No longer eligible based on patient's age to complete this topic [facility]-IPV Vaccines Aged Out No longer e ligible based on patient's age to complete this topic [facility]-Rotavirus Vaccines Aged Out No lo nger eligible based on patient's age to complete this topic Procedures Procedure Name Priority Date/Time Associated Diagnosis Comments XR SHOULDER RIGHT 2+ VIEWS Routine 04/09/2024 2:00 PM EST Acute pain of right shoulder XR CHEST 2 VIEWS Routine 04/09/2024 2:00 PM EST Shortness of breath Chronic obstructive pulmonary disease, unspecified COPD type (CMS/HCC) CBC WITH AUTO DIFFERENTIAL Routine 04/09/2024 12:55 PM EST High risk medication use CREATININE, PLASMA Routine 04/09/2024 12 :55 PM EST High risk medication use HEPATIC FUNCTION PANEL Routine 12:55 PM EST High risk medication use MYOSITIS ANTIBODY PANEL (SO) Routine 04/09/2024 12:55 PM EST Raynaud's phenomenon without gangrene SCLERODERMA (SCL-70) (DAVID) ANTIBODY, IGG (SO) Routine 04/09/2024 12:55 PM EST Raynaud's phenomenon without gangrene CENTROMERE ANTIBODY, IGG (SO) Routine 04/09/2024 12:55 PM EST Raynaud's phenomenon without gangrene RNA POLYMERASE III ANTIBODY, IGG (SO) Routine 04/09/2024 12:55 PM EST Raynaud's phenomenon without gangrene ANTINUCLEAR ANTIBODY (SILVIA) WITH HEP-2 SUBSTRATE, IGG BY IFA (SO) Routine 04/09/2024 12:55 PM EST Shortness of breath SEDIMENTATION RATE, AUTOMATED Routine 04/09/2024 12:55 PM EST Psoriatic arthritis (CMS/HCC) C-REACTIVE PROTEIN, PLASMA Routine 04/09/2024 12:55 PM EST Psoriatic arthritis (CMS/HCC) ACUTE HEPATITIS PANEL Routine 05/30/2023 1:32 PM EST Polyarthralgia HIV 1/2 ANTIBODY/ANTIGEN SCREEN WITH REFLEX TO HIV I/II DIFFERENTIATION Routine 05/30/2023 1:32 PM EST Polyarthralgia from Last 3 Months or Most Recently Relevant to Health Maintenance Results * XR Shoulder Right 2+ Views (04/09/2024 2:00 PM EST) Anatomical Region Laterality Modality Upper Extremities, Shoulder Right Digi hiwot Radiography Impressions 04/09/2024 2:24 PM EST Minimal degenerative enthesopathic changes of the greater tuberosity that may be an indication of adjacent rotator cuff pathology. CRITICAL RESULT: ?? No. COMMUNICATION: Per this written report. Drafted by Live Anderson MD on 04/09/2024 2:22 PM Final report signed by Live Anderson MD on 04/09/2024 2:24 PM Narrative 04/09/2024 2:24 PM EST CLINICAL INDICATION: right shoulder pain TECHNIQUE: XR SHOULDER RIGHT 2+ VIEWS COMPARISON: None. FINDINGS: 3 views of the right shoulder show normal glenohumeral joint. Degenerative enthesopathic changes in the right greater tuberosity. Old posterior left seventh rib fracture and anterior right third rib fracture. Anterior cervical discectomy and fusion in the cervical spine, incompletely evaluated Procedure Note Live Anderson MD - 04/09/2024 CLINICAL INDICATION: right shoulder pain TECHNIQUE: XR SHOULDER RIGHT 2+ VIEWS COMPARISON: None. FINDINGS: 3 views of the right shoulder show normal glenohumeral joint. Degenerativeenthesopathic changes in the right greater tuberosity. Old posterior leftseventh rib fracture and anterior right third rib fracture. Anteriorcervical discectomy and fusion in the cervical spine, incompletelyevaluated IMPRESSION: Minimal degenerative enthesopathic changes of the greater tuberosity thatmay be an indication of adjacent rotator cuff pathology. CRITICAL RESULT: No. COMMUNICATION: Per this written report. Drafted by Live Anderson MD on 04/09/2024 2:22 PM Final report signed by Live Anderson MD on 04/09/2024 2:24 PM may R Matthew CAREER TRANSITION SPECIALIST IMG XR PROCEDURES Final Res ult * XR Chest 2 Views (04/09/2024 2:00 PM EST) Anatomical Region Laterality Modality Chest Digital Radiogra phy Impressions 04/09/2024 2:12 PM EST Emphysema. No acute findings. CRITICAL RESULT: ?? No. COMMUNICATION: Per this written report. Drafted by Ambreen Kelsey MD on 04/09/2024 2:11 PM Final report signed by Ambreen Kelsey MD on 04/09/2024 2:12 PM Narrative 04/09/2024 2:12 PM EST CLINICAL INDICATION: shortness of breath + COPD TECHNIQUE: XR CHEST 2 VIEWS COMPARISON: None. FINDINGS: Emphysema. No acute focal airspace disease. Heart and mediastinal contours are within normal limits. No pneumothorax. ??No pleural effusion. No acute osseous findings. . Procedure Note Ambreen Kelsey MD - 04/09/2024 CLINICAL INDICATION: shortness of breath + COPD TECHNIQUE: XR CHEST 2 VIEWS COMPARISON: None. FINDINGS: Emphysema. No acute focal airspace disease. Heart and mediastinal contoursare within normal limits. No pneumothorax. No pleural effusion. No acuteosseous findings. . IMPRESSION: Emphysema. No acute findings. CRITICAL RESULT: No. COMMUNICATION: Per this written report. Drafted by Ambreen Kelsey MD on 04/09/2024 2:11 PM Final report signed by Ambreen Kelsey MD on 04/09/2024 2:12 PM May R Matthew ROBERTSONN IMG XR PROCEDURES Final Res ult * (ABNORMAL) RNA Polymerase III Antibody, IgG (04/09/2024 12:55 PM EST) RNA Polymerase III Antibody, IgG 58(H) 0 - 19 Units 04/13/2024 12:16 AM EST [facility] ([facility]) Blood Venous blood specimen / Unknown Venipuncture / Unknown 04/09/2024 12:55 PM EST 04/09/2024 12:55 PM EST Narrative [facility]) - 04/13/2024 12:16 AM EST INTERPRETIVE INFORMATION: RNA Polymerase III Antibody, IgG ??19 Units or less ......Negative ??20 - 39 Units .........Weak Positive ??40 - 80 Units .........Moderate Positive ??81 Units or greater ...Strong Positive The presence of RNA polymerase III IgG antibody, when considered in conjunction with other laboratory and clinical findings, is an aid in the diagnosis of systemic sclerosis (SSc) with increased incidence of skin involvement and renal crisis with the diffuse cutaneous form of SSc. RNA polymerase III IgG antibody occur in about 11-23 percent of SSc patients, and typically in the absence of anti-centromere and anti-Scl-70 antibodies. A negative result indicates no detectable IgG antibodies to the dominant antigen of RNA polymerase III and does not rule out the possibility of SSc. False-positive results may also occur due to non-specific binding of immune complexes. Strong clinical correlation is recommended. If clinical suspicion remains, consider additional testing for other antibodies associated with SSc, including centromere, Scl-70, U3-EDI MANAGER, PM/Scl, or Th/To. Performed By: [facility] [address] [place] [id number] Materials Tech: Martell Anton MD, PhD CLIA Number: [id number] May Matthew COURTNEY LAB BLOOD ORDERABLES Final Result [facility]) [address] [place] [address] * Centromere Antibody, IgG (04/09/2024 12:55 PM EST) Centromere Ab, IgG 1 0 - 40 AU/mL 04/11/2024 9:58 PM EST [facility]GED WITH [facility] ([place]) Blood Venous blood specimen / Unknown Venipuncture / Unknown 04/09/2024 12:55 PM EST 04/09/2024 12:55 PM EST Narrative [facility] WITH [facility]) - 04/11/2024 9:58 PM EST INTERPRETIVE INFORMATION: Centromere Ab, IgG ??29 AU/mL or Less ............. Negative ??30 - 40 AU/mL ................ Equivocal ??41 AU/mL or Greater .......... Positive When detected by this multiplex bead assay, the presence of centromere antibodies is mainly associated with CREST syndrome, a variant of systemic sclerosis (SSc). These antibodies target the centromere B, a dominant antigen of the centromeric complex associated with the centromere pattern observed in antinuclear antibody (SILVIA) testing by I[facility]. Centromere antibodies may also be seen in a varying percentage of patients with other autoimmune diseases, including diffuse cutaneous SSc, Raynaud syndrome, interstitial pulmonary fibrosis, autoimmune liver disease, systemic lupus erythematosus (SLE) and rheumatoid arthritis (RA). A negative result indicates no detectable IgG antibodies to centromere B. If the result is negative but clinical suspicion for SSc is strong, consider testing for SILVIA by IFA along with other antibodies associated with SSc, including Scl-70, U3-EDI MANAGER, PM/Scl, or Th/To. Performed By: [facility] [address] [place] [address] Materials Tech: Martell Anton MD, PhD CLIA Number: [id number] may Matthew CAREER TRANSITION SPECIALIST LAB BLOOD ORDERABLES Final Result [facility] ([place]) [address] [place] [address] * Myositis Antibody Panel (SO) (04/09/2024 12:55 PM EST) Hennessy/EDI MANAGER (DAVID) Ab, IgG 1 0 - 19 Units 04/17/2024 8:16 PM EST [facility] ([facility]) SSA-52 (RO52) (DAVID) Antibody, IgG 3 0 - 40 AU/mL 04/17/2024 8:16 PM EST [facility] ([facility]) Heydi-1 (Histidyl-tRNA Synthetase) Ab, IgG 1 0 - 40 AU/mL 04/17/2024 8:16 PM EST [facility] ([facility]) PM/Scl 100 Antibody, IgG Negative Negative 04/17/2024 8:16 PM EST [facility] ([facility]) FL-2 (NUCLEAR HELICASE PROTEIN) ANTIBODY Negative Negative 04/17/2024 8:16 PM EST [facility] ([facility]) PL-7 (THREONYL-TRNA SYNTHETASE) ANTIBODY Negative Negative 04/17/2024 8:16 PM EST [facility] ([facility]) PL-12 (ALANYL-TRNA SYNTHETASE) ANTIBODY Negative Negative 04/17/2024 8:16 PM EST [facility] ([facility]) P155/140 ANTIBODY Negative Negative 04/17/2024 8:16 PM EST [facility] ([facility]) EJ (GLYCYL-TRNA SYNTHETASE) ANTIBODY Negative Negative 04/17/2024 8:16 PM EST [facility] ([facility]) KU ANTIBODY Negative Negative 04/17/2024 8:16 PM EST [facility] ([facility]) SRP (SIGNAL RECOGNITION PARTICLE) AB Negative Negative 04/17/2024 8:16 PM EST [facility] ([facility]) OJ (ISOLEUCYL-TRNA SYNTHETASE) ANTIBODY Negative Negative 04/17/2024 8:16 PM EST [facility] ([facility]) SSA-60 (RO60) (DAVID) Antibody, IgG 0 0 - 40 AU/mL 04/17/2024 8:16 PM EST [facility] ([facility]) Fibrillarin (U3 EDI MANAGER) Ab, IgG Negative Negative 04/17/2024 8:16 PM EST [facility] ([facility]) MYOSITIS PANEL INTERPRETIVE DATA See Note 04/17/2024 8:16 PM EST [facility] ([facility]) SAE1 (SUMO ACTIVATING ENZYME) AB Negative Negative 04/17/2024 8:16 PM EST [facility] ([facility]) MDA5 (CADM-140) AB Negative Negative 04/17/2024 8:16 PM EST [facility] ([facility]) NXP2 (NUCLEAR MATRIX PROTEIN-2) AB Negative Negative 04/17/2024 8:16 PM EST [facility] ([facility]) TIF-1 GAMMA (155 KDA) AB Negative Negative 04/17/2024 8:16 PM EST MERGED WITH [facility] ([facility]) Blood Venous blood specimen / Unknown Venipuncture / Unknown 04/09/2024 12:55 PM EST 04/09/2024 12:55 PM EST [facility] ([facility]) - 04/17/2024 8:16 PM EST INTERPRETIVE INFORMATION: Extended Myositis Panel 2 If present, myositis-specific antibodies (MSA) are specific for myositis, and may be useful in establishing diagnosis as well as prognosis. MSAs are generally regarded as mutually exclusive with rare exceptions; the occurrence of two or more MSAs should be carefully evaluated in the context of patient's clinical presentation. Myositis-associated antibodies (MAA) may be found in patients with CTD including overlap syndromes, and are generally not specific for myositis. The following table will help in identifying the association of any antibodies found as either MSAs or Mary. Antibody Specificity . . . . . . . . . . . . MSA . . . . MAA SSA 52 (Ro) (DAVID) Antibody IgG . . . . . . . . . . . . . ??X SSA 60 (Ro) (DAVID) Antibody IgG . . . . . . . . . . . . . ??X Hennessy/EDI MANAGER (DAVID) Ab, IgG ??. . . . . . . . . . . . . . . . ??X Hedyi-1 (histidyl-tRNA synthetase) Ab, IgG ??. . ??X PL-12 (alanyl-tRNA synthetase) Antibody ??. . ??X PL-7 (threonyl-tRNA synthetase) Antibody . . ??X EJ (glycyl-tRNA synthetase) Antibody . . . . ??X OJ (isoleucyl-tRNA synthetase) Antibody ??. . ??X SRP (Signal Recognition Particle) Ab . . . . ??X Ku Antibody ??. . . . . . . . . . . . . . . . . . . . . . ??X PM/SCL 100 Antibody, IgG . . . . . . . . . . . . . . . . ??X Fibrillarin (U3 EDI MANAGER) Ab, IgG . . . . . . . . . . . . . . ??X Mi-2 (nuclear helicase protein) Antibody . . ??X P155/140 Antibody ??. . . . . . . . . . . . . ??X TIF-1 gamma (155 kDa) Ab . . . . . . . . . . ??X SAE1 (SUMO activating enzyme) Ab . . . . . . ??X MDA5 (CADM-140) Ab ?? . . . . . . . . . . . . ??X NXP2 (Nuclear matrix proten-2)Ab . . . . . . ??X This test was developed and its performance characteristics determined by [facility]. It has not been cleared or approved by the [place] Food and Drug Administration. This test was performed in a CLIA certified laboratory and is intended for clinical purposes. INTERPRETIVE INFORMATION: ??Heydi-1 Antibody, IgG ??29 AU/mL or less.........Negative ??30-40 AU/mL..............Equivocal ??41 AU/mL or greater......Positive Presence of Heydi-1 (antihistidyl transfer RNA [t-RNA] synthetase) antibody is associated with polymyositis and may also be seen in patients with dermatomyositis. Heydi-1 antibody is associated with pulmonary involvement (interstitial lung disease), Raynaud phenomenon, arthritis, and metal roofing mechanic's hands (implicated in antisynthetase syndrome). INTERPRETIVE INFORMATION: Hennessy/EDI MANAGER (DAVID) Antibody, IgG ??19 Units or Less ............. Negative ??20 to 39 Units ............... Weak Positive ??40 to 80 Units ............... Moderate Positive ??81 Units or greater .......... Strong Positive Hennessy/EDI MANAGER antibodies are frequently seen in patients with mixed connective tissue disease (MCTD) and are also associated with other systemic autoimmune rheumatic diseases (SARDs) such as systemic lupus erythematosus (SLE), systemic sclerosis, and myositis. Antibodies targeting the Hennessy/EDI MANAGER antigenic complex also recognize Hennessy antigens, therefore, the Hennessy antibody response must be considered when interpreting these results. INTERPRETIVE INFORMATION: PM/Scl-100 Antibody, IgG by ?Immunoblot The presence of PM/Scl-100 IgG antibody along with a positive SILVIA IFA nucleolar pattern is associated with connective tissue diseases such as polymyositis (PM), dermatomyositis (DM), systemic sclerosis (SSc), and polymyositis/systemic sclerosis overlap syndrome. The clinical relevance of PM/Scl-100 IgG antibody with a negative SILVIA IFA nucleolar pattern is unknown. PM/Scl-100 is the main target epitope of the PM/Scl complex, although antibodies to other targets not detected by this assay may occur. This test was developed and its performance characteristics determined by [facility]. It has not been cleared or approved by the [place] Food and Drug Administration. This test was performed in a CLIA certified laboratory and is intended for clinical purposes. INTERPRETIVE INFORMATION: SSA-52 (Ro52) (DAVID) Antibody, IgG ??29 AU/mL or Less ............. Negative ??30 - 40 AU/mL ................ Equivocal ??41 AU/mL or Greater .......... Positive SSA-52 (Ro52) and/or SSA-60 (Ro60) antibodies are associated with a diagnosis of Sjogren syndrome, systemic lupus erythematosus (SLE), and systemic sclerosis. SSA-52 antibody overlaps significantly with the major SSc-related antibodies. SSA-52 (Ro52) antibody occurs frequently in patients with inflammatory myopathies, often in the presence of interstitial lung disease. REFERENCE INTERVAL: SSA-60 (Ro60) (DAVID) Antibody, IgG ??29 AU/mL or Less ............. Negative ??30 - 40 AU/mL ................ Equivocal ??41 AU/mL or Greater .......... Positive Interpretive Information: Fibrillarin (U3 EDI MANAGER) Antibody, IgG The presence of fibrillarin (U3-EDI MANAGER) IgG antibodies in association with an SILVIA IFA nucleolar pattern is suggestive of systemic sclerosis (SSc). In SSc, these antibodies are associated with distinct clinical features, such as younger age at disease onset, frequent internal organ involvement (pulmonary hypertension, myositis and renal disease). Fibrillarin antibodies are detected more frequently in patients with SSc compared to other ethnic groups. Strong correlation with SILVIA IFA results is recommended. In a multi-ethnic cohort of SSc patients (n=98), U3-EDI MANAGER antibodies detected by immunoblot had an agreement of 98.9 percent with the gold standard immunoprecipitation (IP) assay. Approximately 71 percent (5/7) of the borderline U3-EDI MANAGER results with SILVIA nucleolar pattern in this cohort were IP negative. This test was developed and its performance characteristics determined by [facility]. It has not been cleared or approved by the [place] Food and Drug Administration. This test was performed in a CLIA certified laboratory and is intended for clinical purposes. Performed By: [facility] [address] [place] [address] Materials Tech: Martell Anton MD, PhD CLIA Number: [id number] may Matthew CAREER TRANSITION SPECIALIST LAB BLOOD ORDERABLES Final Result [facility] [address] [place], [place] [id number] * Anti-scleroderma antibody (04/09/2024 12:55 PM EST) SCLERODERMA (SCL-70) (DAVID) ANTIBODY, IGG 0 0 - 40 AU/mL 04/12/2024 8:16 AM EST [facility]) Blood Venous blood specimen / Unknown Venipuncture / Unknown 04/09/2024 12:55 PM EST 04/09/2024 12:55 PM EST Narrative [facility] [employer] [facility] [facility]) - 04/12/2024 8:16 AM EST INTERPRETIVE INFORMATION: Scleroderma (Scl-70) (DAVID) Ab, IgG ??29 AU/mL or Less ............. Negative ??30 - 40 AU/mL ................ Equivocal ??41 AU/mL or Greater .......... Positive The presence of Scl-70 antibodies (also referred to as topoisomerase I, margaux-I or NANCY) is considered diagnostic for systemic sclerosis (SSc). Scl-70 antibodies alone are detected in about 20 percent of SSc patients and are associated with the diffuse form of the disease, which may include specific organ involvement and poor prognosis. Scl-70 antibodies have also been reported in a varying percentage of patients with systemic lupus erythematosus (SLE). Scl-70 (margaux-1) is a DNA binding protein and anti-DNA/DNA complexes in the sera of SLE patients may bind to margaux-I, leading to a false-positive result. The presence of Scl-70 antibody in sera may also be due to contamination of recombinant Scl-70 with DNA derived from cellular material used in immunoassays. Strong clinical correlation is recommended if both Scl-70 and dsDNA antibodies are detected. Negative results do not necessarily rule out the presence of SSc. If clinical suspicion remains, consider further testing for centromere, RNA polymerase III and U3-EDI MANAGER, PM/Scl, or Th/To antibodies. Performed By: [facility] [address] [place] [address] Materials Tech: Martell Anton MD, PhD CLIA Number: [id number] may Matthew [facility] LAB BLOOD ORDERABLES Final Result [facility] [address] [place] [address] * Creatinine, Plasma (04/09/2024 12:55 PM EST) Creatinine, Plasma 0.75 0.60 - 1.10 mg/dL 04/09/2024 3:08 PM EST [facility] eGFRcr 90.7 mL/min/1.7 3m*2 04/09/2024 3:08 PM EST [facility] Comment:Reported eGFRcr in m L/min/1.73m2 is based the CKD-EPI 2020 equation that does not use a race coefficient. Blood Venous blood specimen / Unknown Venipuncture / Unknown 04/09/2024 12:55 PM EST 04/09/2024 12:55 PM EST us May R Matthew CAREER TRANSITION SPECIALIST LAB BLOOD ORDERABLES Final Result [facility] [address] [place] [address] * Sedimentation Rate, Automated (04/09/2024 12:55 PM EST) Sedimentation Rate 11 <30 mm/hr 2023 3:11 PM EST [facility] Blood Venous blood specimen / Unknown Venipuncture / Unknown 04/09/2024 12:55 PM EST 04/09/2024 12:55 PM EST us May R Matthew ROBERTSONN LAB BLOOD ORDERABLES Final Result Performing Organization Address City/[facility] Co de Phone Number [facility] [address] [place] [address] * (ABNORMAL) CBC and Differential (04/09/2024 12:55 PM EST) WBC Count 6.84 3.70 - 10.30 10*3/uL LAB HEMATOLOGY METHOD 04/09/2024 3:02 PM EST [facility] RBC Count 4.84 3.90 - 5.20 10*6/uL LAB HEMATOLOGY METHOD 04/09/2024 3:02 PM EST [facility] HGB 14.8 11.2 - 15.7 g/dL LAB HEMATOLOGY METHOD 04/09/2024 3:02 PM EST [facility] HCT 45.7(H) 34.0 - 45.0 % LAB HEMATOLOGY METHOD 04/09/2024 3:02 PM EST [facility] Platelet Count 247 155 - 369 10*3/uL LAB HEMATOLOGY METHOD 04/09/2024 3:02 PM EST [facility] MCV 94 79 - 98 fL LAB HEMATOLOGY METHOD 04/09/2024 3:02 PM EST [facility] MCH 30.6 26.0 - 32.0 pg LAB HEMATOLOGY METHOD 04/09/2024 3:02 PM EST [facility] MCHC 32.4 30.7 - 35.5 g/dL LAB HEMATOLOGY METHOD 04/09/2024 3:02 PM [facility] RDW 12.8 11.5 - 14.5 % LAB HEMATOLOGY METHOD 04/09/2024 3:02 PM [facility] MPV 11.3 8.8 - 12.5 fL LAB HEMATOLOGY METHOD 04/09/2024 3:02 PM [facility] nRBC 0.0 <=0.0 per 100 WBCs LAB HEMATOLOGY METHOD 04/09/2024 3:02 PM [facility] Differential Type Automated LAB HEMATOLOGY METHOD 04/09/2024 3:02 PM [facility] Neutrophils % 60 % LAB HEMATOLOGY METHOD 04/09/2024 3:02 PM [facility] Lymphocytes % 31 % LAB HEMATOLOGY METHOD 04/09/2024 3:02 PM [facility] Monocytes % 6 % LAB HEMATOLOGY METHOD 04/09/2024 3:02 PM [facility] Eosinophils % 2 % LAB HEMATOLOGY METHOD 04/09/2024 3:02 PM [facility] Basophils % 1 % LAB HEMATOLOGY METHOD 04/09/2024 3:02 PM [facility] Immature Granulocytes % 0 % LAB HEMATOLOGY METHOD 04/09/2024 3:02 PM [facility] Neutrophils Absolute 4.12 1.60 - 6.10 10*3/uL LAB HEMATOLOGY METHOD 04/09/2024 3:02 PM [facility] Lymphocytes Absolute 2.10 1.20 - 3.90 10*3/uL LAB HEMATOLOGY METHOD 04/09/2024 3:02 PM [facility] Monocytes Absolute 0.42 0.30 - 0.90 10*3/uL LAB HEMATOLOGY METHOD 04/09/2024 3:02 PM [facility] Eosinophils Absolute 0.13 0.00 - 0.50 10*3/uL LAB HEMATOLOGY METHOD 04/09/2024 3:02 PM [facility] Basophils Absolute 0.05 0.00 - 0.10 10*3/uL LAB HEMATOLOGY METHOD 04/09/2024 3:02 PM [facility] Immature Granulocytes Absolute 0.02 0.00 - 0.06 10*3/uL LAB HEMATOLOGY METHOD 04/09/2024 3:02 PM [facility] Blood Venous blood specimen / Unknown Venipuncture / Unknown 04/09/2024 12:55 PM EST 04/09/2024 12:55 PM EST Narrative [facility] - 04/09/2024 3:02 PM EST Therapeutic decision making should be based on absolute values, rather than percentages. May [facility] LAB BLOOD ORDERABLES Final Result Performing Organization Address [facility] [place] [place] [address] * C-reactive protein (04/09/2024 12:55 PM EST) Pathologist [facility] CRP, Plasma 3.2 <=8.0 mg/L 04/09/2024 3:08 PM EST [facility] Blood Venous blood specimen / Unknown Venipuncture / Unknown 04/09/2024 12:55 PM EST 04/09/2024 12:55 PM EST Narrative [facility] - 04/09/2024 3:08 PM EST This CRP test is appropriate for assessment of infection, systemic inflammation and/or tissue injury. To assess cardiovascular disease risk order high sensitivity CRP (CRPH). May [facility] LAB BLOOD ORDERABLES Final Result Performing Organization Address [facility] [place] [address] * ANTI NUCLEAR AB (04/09/2024 12:55 PM EST) Pathologist [facility] SILVIA INTERPRETIVE COMMENT See Note 04/12/2024 8:01 PM EST [facility] ([facility]) Anti Nuc Ab Screen <1:80 <1:80 04/12/2024 8:01 PM EST [facility] ([facility]) Blood Venous blood specimen / Unknown Venipuncture / Unknown 04/09/2024 12:55 PM EST 04/09/2024 12:55 PM EST Narrative [facility] ([facility]) - 04/12/2024 8:01 PM EST Antinuclear antibodies by IFA negative for homogeneous, speckled, nucleolar, centromere, and nuclear dots patterns. Cytoplasmic antibodies by IFA negative for reticular/AMA, discrete/GW body-like, polar/golgi-like, rods and rings, and cytoplasmic speckled patterns. INTERPRETIVE INFORMATION: SILVIA Interpretive Comment Presence of antinuclear antibodies (SILVIA) is a hallmark feature of systemic autoimmune rheumatic diseases (SARD). However, SILVIA lacks diagnostic specificity and is associated with a variety of diseases (cancers, autoimmune, infectious, and inflammatory conditions) ??and may also occur in healthy individuals in varying prevalence. The lack of diagnostic specificity requires confirmation of positive SILVIA by more specific serologic tests. SILVIA (nuclear reactivity) positive patterns reported include centromere, homogeneous, nuclear dots, nucleolar, or speckled. SILVIA (cytoplasmic reactivity) positive patterns reported include reticular/AMA, discrete/GW body-like, polar/golgi-like, cytoplasmic speckled or rods and rings. All positive patterns are reported to endpoint titers (1:2560). Reported patterns may help guide differential diagnosis, although they may not be specific for individual antibodies or diseases. Mitotic staining patterns not reported. ??Negative results do not necessarily rule out SARD. Performed By: [facility] [address] [place] [address] Materials Tech: Martell Anton MD, PhD CLIA Number: [id number] may Matthew [facility] LAB BLOOD ORDERABLES Final Result [facility] ([facility]) [address] [place], [place] [id number] * Hepatic Function Panel (04/09/2024 12:55 PM EST) Conjugated Bilirubin, Plasma <0.2 0.0 - 0.3 mg/dL 04/09/2024 3:08 PM EST [facility] Alkaline Phosphatase, Plasma 86 46 - 142 U/L 04/09/2024 3:08 PM EST [facility] Total Bilirubin, Plasma 0.3 0.2 - 1.1 mg/dL 04/09/2024 3:08 PM EST [facility] Albumin, Plasma 4.1 3.5 - 5.2 g/dL 04/09/2024 3:08 PM EST [facility] Total Protein 6.7 6.3 - 7.9 g/dL 04/09/2024 3:08 PM EST [facility] ALT, Plasma 17 10 - 35 U/L 04/09/2024 3:08 PM EST [facility] AST, Plasma 20 10 - 35 U/L 04/09/2024 3:08 PM EST [facility] Blood Venous blood specimen / Unknown Venipuncture / Unknown 04/09/2024 12:55 PM EST 04/09/2024 12:55 PM EST May R [facility] LAB BLOOD ORDERABLES Final Result Performing Organization Address City/[facility]/ZIP Co de Phone Number [facility] [address] [place] [address] * HIV 1 & 2 Antibody/Antigen Screen (05/30/2023 1:32 PM EST) Pathologist [facility] HIV 1 & 2 Antibody/Antigen Screen Non Reactive Non Reactive 05/30/2023 3:32 PM EST [facility] Comment:Screening for HIV 1 & 2 antibodies, and P24 antigen is NONREACTIVE. No confirmatory testing is required. Blood Venous blood specimen / Unknown Venipuncture / Unknown 05/30/2023 1:32 PM EST 05/30/2023 1:34 PM EST may [facility] LAB BLOOD ORDERABLES Final Result Performing Organization Address City/[facility] Co de Phone Number [facility] [address] [place] [address] * Acute Hepatitis Panel (05/30/2023 1:32 PM EST) Pathologist [facility] Hepatitis B Surf Antigen Negative Negative 05/30/2023 4:04 PM EST [facility] Hepatitis C Antibody Negative Negative 05/30/2023 4:04 PM EST [facility] Hepatitis A Antibody IgM Negative Negative 05/30/2023 4:04 PM EST [facility] Hepatitis B Core Antibody IgM Negative Negative 05/30/2023 4:04 PM EST [facility] Blood Venous blood specimen / Unknown Venipuncture / Unknown 05/30/2023 1:32 PM EST 05/30/2023 1:34 PM EST May Matthew CAREER TRANSITION SPECIALIST LAB BLOOD ORDERABLES Final Result [facility] [address] [place] [address] from Last 3 Months or Most Recently Relevant to Health Maintenance Insurance [employer] D[employer] CLAIMS [facility] Care Teams Traveling Clerk Relationship Specialty Start Date End Date Alma Gross APRN [address] [place] [address] PCP - General 05/08/23
--- OUTSIDE RECORDS SUMMARY | 2024-04-22 12:46 | XMS_ITS | Encounter Summary ---
Author Organization [facility] Address [address] [id number] Care Team Providers Care Student Union Consultant Name Role Phone Alma Gross SHERWIN Primary Care Provider +1- [phone] Encounter Details Date Type Department Care Team (Latest Contact Info) Description 06/24/2023 Travel Social History Tobacco Use Types Packs/Day [...] H Pulmonary Function Testing [address] [place] [address] 05/27/2024 9:40 AM EST Office Visit [facility] Medicine [facility]ties [address] [place] [address] Rupal Gonzalez APRN [address] [place] [address] 07/23/2024 3:00 PM EST Office Visit [facility] [address] [place] [address] Matthew, May R, SUPERVISING EDITOR TRAILER [address] [place] [address] documented as of this encounter Visit Diagnoses Not on filedocumented in this encounter Additional Health Concerns Assessment Noted Time A fall risk assessment has been complete d for the patient 05/30/2023 12:14 PM EST A Body Mass Index follow-up plan has been documented for the patient 05/30/2023 1:11 PM EST documented as of this encounter Care Teams Student Union Consultant Relationship Specialty Start Date End Date Alma Gross APRN [address] [place] [address] PCP - General 05/08/23 documented as of this encounter
--- OUTSIDE RECORDS SUMMARY | 2024-04-22 12:46 | XMS_ITS | Encounter Summary ---
Author Organization Healthcare Address [address] [place] [address] Care Team Providers Care Hospital Unit Coordinator Name Role Phone Polly Grossninaima Morgan APRN Primary Care Provider +1- [phone] Encounter Details Date Type Department Care Team (Latest Contact Info) Description 04/09/2024 1:01 PM EST - 04/09/2024 11:59 PM EST Hospital Encounter [facility] [address] [place] [address] Shortness of breath; Chronic obstructive pulmonary disease, unspecified COPD type (CMS/HCC); Acute pain of right shoulder Discharge Disposition: Home or Self Care Social History Tobacco Use Types Packs/Day Years Used Date Smoking Tobacco: Every Day Cigarettes 1 45.9 Started: 1980 Smokeless Tobacco: Never Alcohol Use Standard Drinks/Week Comments Not Currently [...] on file documented as of this encounter Medications at Time of Discharge albuterol 1.25 MG/3ML nebulizer solution INHALE THE CONTENTS OF 1 VIAL VIA NEBULIZER EVERY 8 HOURS NEEDED 12/26/2022 albuterol 108 (90 Base) MCG/ACT inhaler INHALE TWO PUFFS BY MOUTH EVERY 4 HOURS NEEDED --SHAKE WELL BEFORE USE-- 05/04/2023 cetirizine (ZyrTEC) 10 MG tablet Take 1 tablet (10 mg) by mouth if needed. 08/13/2022 cyclobenzaprine (Flexeril) 5 MG tablet Take 1 tablet (5 mg) by mouth if needed for muscle spasms. 01/24/2023 diazePAM (Valium) 2 MG tablet Take 1 tablet (2 mg) by mouth every 12 (twelve) hours if needed for anxiety. 01/24/2023 diclofenac (Voltaren) 50 MG EC tablet Take 1 tablet (50 mg) by mouth 3 (three) times a day. 05/04/2023 fluticasone (Flonase) 50 MCG/ACT nasal spray Administer 2 sprays into each nostril if needed. 04/17/2023 folic acid (Folvite) 1 MG tabletIndications :High risk medication use Take 1 tablet (1 mg) by mouth 1 (one) time each day. 90 tablet 04/09/2024 ipratropium-albut devi (Duo-Neb) 0.5-2.5 mg/3 mL nebulizer solution 3 mL. 01/28/2024 lisinopril-hydroC HLOROthiazide 20-12.5 MG tablet TAKE TWO TABLETS BY MOUTH ONCE A DAY 07/27/2022 meclizine (Antivert) 25 MG tablet TAKE 1 TABLET BY MOUTH THREE TIMES DAILY NEEDED FOR DIZZINESS 03/07/2024 metoclopramide (Reglan) 10 MG tablet 1 tablet (10 mg). 06/20/2023 ondansetron (Zofran) 4 MG tablet Take 1 tablet (4 mg) by mouth. 06/05/2022 predniSONE (Deltasone) 5 MG tabletIndications :Psoriatic arthritis (CMS/HCC) 3 tablets daily x 1 week, 2 tablets daily x1 week then one tablet daily 49 tablet 04/09/2024 traMADol (Ultram) 50 MG tablet 1 tablet (50 mg). 06/19/2023 traZODone (Desyrel) 50 MG tablet Take 1 tablet (50 mg) by mouth at night if needed for sleep. Trelegy Ellipta 200-62.5-25 MCG/ACT aerosol powder Inhale 1 puff. 06/16/2023 varenicline (Chantix) 1 MG tablet TAKE 1 TABLET BY MOUTH TWICE DAILY AFTER COMPLETION OF STARTER PACK 01/28/2024 famotidine (Pepcid) 20 MG tabletIndications :Gastroesophageal reflux disease, unspecified whether esophagitis present Take 1 tablet (20 mg) by mouth 2 (two) times a day. 180 tablet 2 04/09/2024 nicotine (Nicoderm CQ) 14 MG/24HR patchIndications: Encounter for smoking cessation counseling Place 1 patch on the skin 1 (one) time each day at the same time. 28 patch 04/09/2024 nicotine (Nicoderm CQ) 7 MG/24HR patchIndications: Encounter for smoking cessation counseling Place 1 patch on the skin 1 (one) time each day at the same time. Start after completing 14 mg nicoderm patch. Do not smoke while wearing patch. 14 patch 1 04/09/2024 documented as of this encounter Plan of Treatment Upcoming Encounters Date Type Department Care Team (Late st Contact Info) Description 05/19/2024 10:00 AM EST Appointment [facility] Pulmonary Function Testing [address] [place] [address] 05/27/2024 9:40 AM EST Office Visit [facility] Medicine Specialties [address] [place] [address] Rupal Gonzalez S, CEMETERY WORKER [address] [place] [address] 07/23/2024 3:00 PM EST Office Visit [facility]ties [address] [place] [address] Cristel Castro R, CEMETERY WORKER [address] [place] [address] documented as of this encounter Procedures Procedure Name Priority Date/Time Associated Diagnosis Comments XR SHOULDER RIGHT 2+ VIEWS Routine 04/09/2024 2:00 PM EST Acute pain of right shoulder XR CHEST 2 VIEWS Routine 04/09/2024 2:00 PM EST Shortness of breath Chronic obstructive pulmonary disease, unspecified COPD type (CMS/[facility]) documented in this encounter Results * XR Shoulder Right 2+ Views [...] on 04/09/2024 2:24 PM may R Matthew CEMETERY WORKER IMG XR PROCEDURES Final Res ult * [...] Kelsey MD on 04/09/2024 2:12 PM May Matthew CEMETERY WORKER IMG XR PROCEDURES Final Res ult documented in this encounter Visit Diagnoses Diagnosis Shortness of breath Chronic obstructive pulmonary disease, unspecified COPD type (CMS/HCC) Acute pain of right shoulder documented in this encounter Additional Health Concerns Assessment Noted Time A fall risk assessment has been complete d for the patient 04/09/2024 11:04 AM EST A Body Mass Index follow-up plan has been documented for the patient 04/09/2024 12:25 PM EST documented as of this encounter Care Teams Hospital Unit Coordinator Relationship Specialty Start Date End Date Alma Gross APRN [address] [place] [address] PCP - General 05/08/23 documented as of this encounter
--- OUTSIDE RECORDS SUMMARY | 2024-04-22 12:46 | XMS_ITS | Encounter Summary ---
Author Organization [facility] Address [address] [place] [address] Care Team Providers Care Food Service Worker Hospital Name Role Phone Alma Gross SHERWIN Primary Care Provider +1- [phone] Encounter Details Date Type Department Care Team (Late st Contact Info) Description 02/22/2024 Orders Only [facility] Medicine Specialties [address] [place] [address] Martell Rendon, PharmD Specialty Pharmacy [address] [place] [address] High risk medication use; Psoriatic arthritis (CMS/HCC) Social History Tobacco Use [...] on file documented as of this encounter Miscellaneous Notes * Progress Notes - Martell Rendon, PharmD - 02/22/2024 12:15 PM EDT 1 medication(s) has been approved per protocol. 1 medication(s) has been approved per protocol. documented in this encounter Plan of Treatment Upcoming Encounters Date Type Department Care Team (Late st Contact Info) Description 05/19/2024 10:00 AM EST Appointment [facility] Pulmonary Function Testing [address] [place] [address] 05/27/2024 9:40 AM EST Office Visit [facility] Medicine Specialties [address] [place] [address] Rupal Gonzalez S, LOCKSTITCH MACHINE OPERATOR [address] [place] [address] 07/23/2024 3:00 PM EST Office Visit [facility] Medicine Specialties [address] [place] [address] Cristel Castro R, LOCKSTITCH MACHINE OPERATOR [address] [place] [address] documented as of this encounter Visit Diagnoses Diagnosis High risk medication use Psoriatic arthritis ([facility]) Psoriatic arthropathy documented in this encounter Additional Health Concerns Assessment Noted Time A fall risk assessment has been complete d for the patient 10/01/2023 12:11 PM EDT A Body Mass Index follow-up plan has been documented for the patient 10/01/2023 12:47 PM EDT documented as of this encounter Care Teams Food Service Worker Hospital Relationship Specialty Start Date End Date Alma Gross APRN [address] [place] [address] PCP - General 05/08/23 documented as of this encounter
--- OUTSIDE RECORDS SUMMARY | 2024-04-22 12:46 | XMS_ITS | Encounter Summary ---
Author Organization [facility] Address [address] [place] [address] Care Team Providers Care Mail Teller Name Role Phone Alma Gross SHERWIN Primary Care Provider +1- [phone] Encounter Details Date Type Department Care Team (Latest Contact Info) Description 04/09/2024 Travel Social History Tobacco Use Types Packs/Day [...] H Pulmonary Function Testing [address] [place] [address] 05/27/2024 9:40 AM EST Office Visit [facility] Medicine [facility] [address] [place] [address] Rupal Gonzalez APRN [address] [place] [address] 07/23/2024 3:00 PM EST Office Visit [facility] [address] [place] [address] Matthew May R, CLINICAL SPECIALTY REP [address] [place] [address] documented as of this encounter Visit Diagnoses Not on filedocumented in this encounter Additional Health Concerns Assessment Noted Time A fall risk assessment has been complete d for the patient 04/09/2024 11:04 AM EST A Body Mass Index follow-up plan has been documented for the patient 04/09/2024 12:25 PM EST documented as of this encounter Care Teams Mail Teller Relationship Specialty Start Date End Date Alma Gross, CLINICAL SPECIALTY REP [address] [place] [address] PCP - General 05/08/23 documented as of this encounter
--- OUTSIDE RECORDS SUMMARY | 2024-04-22 12:46 | XMS_ITS | Encounter Summary ---
Author Organization Healthcare Address [address] [place] [address] Care Team Providers Care Core Paster Name Role Phone Alma Gross Cathy COURTNEY Primary Care Provider [phone]- [phone] Encounter Details Date Type Department Care Team (Latest Contact Info) Description 05/30/2023 1:36 PM EST - 05/30/2023 11:59 PM EST [facility] [address] [place] [address] Polyarthralgia Discharge Disposition: Home or Self Care Social [...] sprays into each nostril if needed. 04/17/2023 lisinopril-hydroC HLOROthiazide 20-12.5 MG tablet TAKE TWO TABLETS BY MOUTH ONCE A DAY 07/27/2022 ondansetron (Zofran) 4 MG tablet Take 1 tablet (4 mg) by mouth. 06/05/2022 traZODone (Desyrel) 50 MG tablet Take 1 tablet (50 mg) by mouth at night if needed for sleep. predniSONE (Deltasone) 5 MG tabletIndications :Polyarthralgia 3 tablets daily x 1 week, 2 tablets daily x1 week then one tablet daily 49 tablet 05/30/2023 Tiotropium [place] Monohydrate (Spiriva Respimat) 2.5 MCG/ACT inhaler Inhale 2 puffs 1 (one) time each day. 4 documented as of this encounter Plan of Treatment Upcoming Encounters Date Type Department Care Team (Late st Contact Info) Description 05/19/2024 10:00 AM EST Appointment [facility] Pulmonary Function Testing [address] [place] [address] 05/27/2024 9:40 AM EST Office Visit [facility] [address] [place] [address] Rupal Gonzalez, SHERWIN [address] [place] [address] 07/23/2024 3:00 PM EST Office Visit [facility] [address] [place] [address] Matthew, May R, PERSONNEL SPECIALIST [address] [place] [address] documented as of this encounter Procedures Procedure Name Priority Date/Time Associated Diagnosis Comments XR HAND WRIST BILATERAL 2 VIEWS Routine 05/30/2023 2:22 PM EST Polyarthralgia XR FOOT RIGHT 3+ VIEWS Routine 05/30/2023 2:22 PM EST Polyarthralgia XR FOOT LEFT 3+ VIEWS Routine 05/30/2023 2:22 PM EST Polyarthralgia XR SACROILIAC JOINTS 3+ VIEWS Routine 05/30/2023 2:22 PM EST Polyarthralgia documented in this encounter Results * XR Foot Right 3+ Views (05/30/2023 2:22 PM EST) Anatomical Region Laterality Modality Lower Extremities, Foot Right Digital Radiography Impressions 05/30/2023 2:52 PM EST Mild to [...] Silva MD on 05/30/2023 2:52 PM May R Matthew PERSONNEL SPECIALIST IMG XR PROCEDURES Final Res ult * XR Foot Left 3+ Views (05/30/2023 2:22 PM EST) Anatomical Region Laterality Modality Lower Extremities, Foot Left Digital Radiography Impressions 05/30/2023 2:52 PM EST Mild to [...] Silva MD on 05/30/2023 2:52 PM May R Matthew PERSONNEL SPECIALIST IMG XR PROCEDURES Final Res ult * XR Hand and Wrist Bilateral 2 [...] Seth Silva MD on 05/30/2023 2:52 PM us May R Matthew PERSONNEL SPECIALIST IMG XR PROCEDURES Final Res ult [...] Silva MD on 05/30/2023 2:52 PM May R Matthew PERSONNEL SPECIALIST IMG XR PROCEDURES Final Res ult documented in this encounter Visit Diagnoses Diagnosis Polyarthralgia Pain in joint, multiple sites documented in this encounter Additional Health Concerns Assessment Noted Time A fall risk assessment has been complete d for the patient 05/30/2023 12:14 PM EST A Body Mass Index follow-up plan has been documented for the patient 05/30/2023 1:11 PM EST documented as of this encounter Care Teams Core Paster Relationship Specialty Start Date End Date Alma Gross APRN [address] [place] [address] PCP - General 05/08/23 documented as of this encounter
--- OUTSIDE RECORDS SUMMARY | 2024-04-22 12:46 | XMS_ITS | Encounter Summary ---
Author Organization [facility] Address [address] [place] [address] Care Team Providers Care Senior Storage Administrator Name Role Phone Alma Gross SHERWIN Primary Care Provider +1- [phone] Encounter Details Date Type Department Care Team (Latest Contact Info) Description 04/08/2024 Travel Social History Tobacco Use Types Packs/Day [...] H Pulmonary Function Testing [address] [place] [address] 05/27/2024 9:40 AM EST Office Visit [facility] [address] [place] [address] Rupal Gonzalez APRN [address] [place] [address] 07/23/2024 3:00 PM EST Office Visit [facility] [address] [place] [address] Matthew, May R, IT DESKTOP SUPPORT TECHNICIAN [address] [place] [address] documented as of this encounter Visit Diagnoses Not on filedocumented in this encounter Additional Health Concerns Assessment Noted Time A fall risk assessment has been complete d for the patient 10/01/2023 12:11 PM EDT A Body Mass Index follow-up plan has been documented for the patient 10/01/2023 12:47 PM EDT documented as of this encounter Care Teams Senior Storage Administrator Relationship Specialty Start Date End Date Alma Gross, IT DESKTOP SUPPORT TECHNICIAN [address] [place] [address] PCP - General 05/08/23 documented as of this encounter
--- OUTSIDE RECORDS SUMMARY | 2024-04-22 12:46 | XMS_ITS | Encounter Summary ---
Author Organization [facility] Address [address] [place] [address] Care Team Providers Care Traffic Circuit Engineer Name Role Phone Alma Gross SHERWIN Primary Care Provider +1- [phone] Encounter Details Date Type Department Care Team (Latest Contact Info) Description 06/27/2023 Travel Social History Tobacco Use Types Packs/Day Years Used Date Smoking Tobacco: Every Day Cigarettes 1 45.9 Started: 1980 Smokeless Tobacco: Never Alcohol Use Standard Drinks/Week Comments Yes 0 (1 standard drink = 0.6 oz pur e alcohol) social PHQ-2 Answer Date Recorded Patient Health Questionnaire-2 Score 0 06/27/2023 Comments Unknown Sex and Gender Information Value [...] H Pulmonary Function Testing [address] [place] [address] 05/27/2024 9:40 AM EST Office Visit [facility] [address] [place] [address] Rupal Gonzalez APRN [address] [place] [address] 07/23/2024 3:00 PM EST Office Visit [facility] [address] [place] [address] Matthew May R, PUNCH PRESS SETTER [address] [place] [address] documented as of this encounter Visit Diagnoses Not on filedocumented in this encounter Additional Health Concerns Assessment Noted Time A fall risk assessment has been complete d for the patient 06/27/2023 12:55 PM EST A Body Mass Index follow-up plan has been documented for the patient 06/27/2023 1:50 PM EST documented as of this encounter Care Teams Traffic Circuit Engineer Relationship Specialty Start Date End Date Alma Gross, PUNCH PRESS SETTER [address] [place] [address] PCP - General 05/08/23 documented as of this encounter
--- OUTSIDE RECORDS SUMMARY | 2024-04-22 12:46 | XMS_ITS | Encounter Summary ---
Author Organization [facility] Address [address] [place] [address] Care Team Providers Care Office Employee Name Role Phone Alma Gross Cathy COURTNEY Primary Care Provider [phone] Reason for Referral * Consultation (Routine) - Authorized Specialty Diagnoses / Procedures Referred By Joyce jones Referred To Contact Pulmonology Diagnoses Chronic obstructive pulmonary disease, unspecified COPD type (CMS/HCC) May [address] [address] Phone: tel: fax: [facility] [address] [place] [address] Phone: tel: fax: Referral ID Status Reason Start Date Expiration Date Visits Requested Visits Authorized [id number] Authorized Specialty Services Required 10/09/2025 1 1 Scheduling Instructions Possible ILD. * Imaging (Routine) - Pending Review Specialty Diagnoses / Procedures Referred By Joyce jones Referred To Contact Radiology Diagnoses Shortness of breath Procedures CT Chest wo IV Contrast CT Chest wo IV Contrast Matthewmay, [address] [address] Phone: tel: fax: Referral ID Status Reason Start Date Expiration Date V isits Requested Visits Authorized [id number] Pending Review 04/09/2024 10/09/2025 1 1 Reason for Visit * Reason Comments Follow-up Encounter Details Date Type Department Care Team (Late st Contact Info) Description 04/09/2024 10:00 AM EST Office Visit [place] [facility] [address] [place] [address] Matthew May, [address] [place] [address] Psoriatic arthritis (CMS/HCC) (Primary Dx); High risk medication use; Shortness of breath; Raynaud's phenomenon without gangrene; Polyarthralgia; Encounter for smoking cessation counseling; Chronic obstructive pulmonary disease, unspecified COPD type (CMS/HCC); Acute pain of right shoulder; Gastroesophageal reflux disease, unspecified whether esophagitis present Social History Tobacco Use Types Packs/Day Years [...] Mass Index 32.85 04/09/2024 10:58 AM EST documented in this encounter Miscellaneous Notes * Progress Notes - Matthew, Cristel R, [employer] - 04/09/2024 10:00 AM EST Images from the original note were not included. Subjective Patient ID: Britney Coughlin is a 59 y.o. female with HPI Britney Coughlin is a 59 y.o. female with PMH significant for Achilles rupture, asthma severe persistent, COPD, hypertension,One kidney atrophy, hx of CTS surgery on right needs it on the left, and herniated disc, DDD , who presents as a follow up evaluation for PsA Last seen by me 09/2023 Referral note and labs reviewed: Uric acid 4.6, ESR 17, rheumatoid factor 11.6, SILVIA positive 1:1280nucleolar Rheum Med HX: SSZ started 06/2023-03/2024 stopped due worsening lung condition Last visit:: Left knee mensicus tear verified by MRI from [facility]. Has ortho appt pending. Feels the SSZ is helping. Taking 2 SSZ BID. Had labs drawn on Sunday from [facility]. Reviewed labs ok to continue. Right knee doing well. Low back pain and left CMC pain. Applied for SS disability. Back pain is worse with standing or doing housework. Today: Active with Pulmonary Rehab.Right knee pain. Left knee pain. Low back pain. COPD has worsened she is now on Oxygen. Vertigo today. Started 04/07 woke up with it. Changing positions makes her dizzy. Vertigo at night. Sleep study pending. Pt showed me her phone with o2 sats ranging from 70-93%. Worsening shortness of air. Initial Rheumatological ROS positive for dry mouth, [...] No hx of alcohol abuse. 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 [employer] The following portions of the chart were reviewed this encounter and updated as appropriate: Past Medical History: Diagnosis Date Achilles tendon tear Asthma Bunion Carpal tunnel syndrome COPD (chronic obstructive pulmonary disease) ([facility]) Fallen arches Gallstone Herniated cervical disc Hypertension [...] packs/day: 1.00 Average packs/day: 1 pack/day for 45.9 years (45.9 ttl pk-yrs) Types: Cigarettes Start date: 1980 Smokeless tobacco: Never Vaping Use Vaping status: Never Used Substance and Sexual Activity Alcohol use: Not Currently Comment: social Drug use: Never Sexual activity: Not on file Other Topics Concern Not on file Social History Narrative Not on file Social Drivers of Health Financial Resource Strain: Not on [...] 1 (one) time each day. 90 tablet 0 ipratropium-albuterol (Duo-Neb) 0.5-2.5 mg/3 mL nebulizer solution 3 mL. lisinopril-hydroCHLOROthiazide 20-12.5 MG tablet TAKE TWO TABLETS BY MOUTH ONCE A DAY meclizine (Antivert) 25 MG tablet TAKE 1 TABLET BY MOUTH THREE TIMES DAILY NEEDED FOR DIZZINESS metoclopramide (Reglan) 10 MG tablet 1 tablet (10 mg). ondansetron (Zofran) 4 MG tablet Take 1 tablet (4 mg) by mouth. predniSONE (Deltasone) 5 MG tablet 3 tablets daily x 1 week, 2 tablets daily x1 week then one tablet daily 49 tablet 0 traMADol (Ultram) 50 MG tablet 1 tablet (50 mg). traZODone (Desyrel) 50 MG tablet Take 1 tablet (50 mg) by mouth at night if needed for sleep. Trelegy Ellipta 200-62.5-25 MCG/ACT aerosol powder Inhale 1 puff. varenicline (Chantix) 1 MG tablet TAKE 1 TABLET BY MOUTH TWICE DAILY AFTER COMPLETION OF STARTER PACK famotidine (Pepcid) 20 MG tablet Take 1 tablet (20 mg) by mouth 2 (two) times a day. 180 tablet 2 nicotine (Nicoderm CQ) 14 MG/24HR patch Place 1 patch on the skin 1 (one) time each day at the sametime. 28 patch 0 nicotine (Nicoderm CQ) 7 MG/24HR patch Place 1 patch on the skin 1 (one) time each day at the same time. Start after completing 14 mg nicoderm patch. Do not smoke while wearing patch. 14 patch 1 No current facility-administered medications for this visit. Objective Vitals: 04/09/24 1058 BP: (!) 153/86 Pulse: 83 Resp: 16 Temp: 36.6 ??C (97.9 ??F) SpO2: 93% Physical Exam Vitals reviewed. Constitutional: General: She is not in acute distress. Appearance: Normal appearance. Eyes: Conjunctiva/sclera: Conjunctivae normal. Cardiovascular: Rate and Rhythm: Normal rate and regular rhythm. Heart sounds: No murmur heard. Pulmonary: Effort: Pulmonary effort is normal. Breath sounds: Wheezing (inspiratory) present. Comments: Diminished breath sounds Abdominal: Comments: GERD without dysphagia Musculoskeletal: Comments: Digits were normal. Pitting of the fingernails. See homunculus. Joints had a normal ROM and normal alignment. Tender over the SI joint. Proximal muscle weakness noted. Skin: General: Skin is warm. Findings: No rash. Neurological: General: No focal deficit present. Mental Status: She is alert. Psychiatric: Mood and Affect: Mood normal. Joint Exam 04/09/2024 Right Left Sacroiliac Tender Tender Knee Tender Tender 05/30/2023 06/27/2023 04/09/2024 RAMIREZ-28 (ESR) -- -- -- RAMIREZ-28 (CRP) -- -- -- Tender (RAMIREZ-28) Swollen (RAMIREZ-28) 0 0 0 Provider Global -- -- -- Patient Global -- -- -- ESR -- -- 11 mm/hr CRP -- -- 3.2 mg/L Swollen Joint Count: Swollen: 0 0 Tender Joint Count: Tender: 4 0 Patient global assessment: 11/27 Rapid 3 score: 1830 CDAI: IMAGING 05/30/2023 FINDINGS: Right hand and [...] least underlying tendinosis. Assessment/Plan Diagnosis Plan 1. Psoriatic arthritis (CMS/HCC) predniSONE (Deltasone) 5 MG tablet Sedimentation Rate, Automated C-reactive protein 2. High risk medication use folic acid (Folvite) 1 MG tablet 3. Shortness of breath CT Chest wo IV Contrast XR Chest 2 Views ANTI NUCLEAR AB 4. Raynaud's phenomenon without gangrene Myositis Antibody Panel (SO) Anti-scleroderma antibody Centromere Antibody, IgG RNA Polymerase III Antibody, IgG 5. Polyarthralgia 6. Encounter for smoking cessation counseling nicotine (Nicoderm CQ) 14 MG/24HR patch nicotine (Nicoderm CQ) 7 MG/24HR patch 7. Chronic obstructive pulmonary disease, unspecified COPD type (CMS/HCC) Ambulatory referral to Pulmonology Pulmonary Function Testing XR Chest 2 Views 8. Acute pain of right shoulder 9. Gastroesophageal reflux disease, unspecified whether esophagitis present famotidine (Pepcid) 20 MG tablet Diagnosis Plan 1. PsA/ SILVIA positive 1:1280 nucleolar Diff Dx: PsA, RA, SpA No synovitis Right achilles tender and swollen ( hx of tenosynovitis, tendon tear,) Brother with Psoriasis History sounds mixed mechanical/inflammatory + enthesopathy ? Raynaud's on feet noticed recently +GERD Liberty criteria + family hx + nail dystrophy [...] back pain MRI showed DDD Lumbar Spine Hold SSZ for now due to worsening lung disease. Work up pending HRCT of chest ordered 2. COPD This affected my decision making process On Trelegy Followed by PCP Worsening symptoms On oxygen 1 LPM at night Home o2 sat ranged 70-93% Recommended patient discuss with PCP increasing Oxygen HRCT ordered today CXR today Active with Pulmonary Rehab.Right knee pain. Left knee pain. Low back pain. COPD has worsened she is now on Oxygen. Vertigo today. Started 04/07 woke up with it. Changing positions makes her dizzy. Vertigo at night. Sleep study pending. Pt showed me her phone with o2 sats ranging from 70-93%. Worsening shortness of air. 3. Severe Vit D def Pt showed me on her phone . It didn't even register <12.5 Pt is now taking 10,000 IU of Vitamin D3 in daily and followed by PCP 4. Tobacco Use We counseled the patient regarding tobacco cessation. Discussion included negative health effects of tobacco including but not limited to, increased risk of cancer, heart and blood vessel disease, stroke, delayed wound healing, and increased symptoms of chronic medical conditions. Treatment optionswere discussed, [id number] Nicoderm 14 mg and 7 mg patch ordered today DO NOT SMOKE WHILE WEARING PATCH 5. Raynauds/ SILVIA positive 1:1280 nucleolar Diff Dx: MCTD, Scleroderma, Myositis, ILD Scleroderma labs today Myositis panel today +GERD Pepcid 20 mg twice daily ordered today 6. High risk medication monitoring SSZ (discontinued concern about worsening lung disease) -CBC, CMP, q3 months reviewed labs from 04/03 WNL -HIV neg 05/2023 -HBV neg 05/2023 -HCV neg 05/2023 -TB Quant Gold -Prevnar -Pneumovax -COVID HCQ - eye exam Counseled on importance of contraception RTC 2 months Today, I personally spent minutes on the [...] Parts of this note were dictated using Oyster voice recognition software. As a result, errors may occur. When identified, these engineering laboratory technician errors are corrected, but while every attempt is made to prevent/correct these, errors may still exist. Note to patient: The Cures Act makes medical notes like these [...] the clinical opinion of the practitioner. ADDENDUM 04/21/2024 CBC, Creat and LFTs WNL SILVIA neg Myositis panel neg CRP and ESR WNL RNA polymerase III ab 58 (H) suspicious for possible Systemic Sclerosis with associated ILD? Pt hasCT Scan pending and follow up scheduled with Pulmonology Centromere and SCL 70 neg , , documented in this encounter Plan of Treatment Upcoming Encounters Date Type Department Care Team (Late st Contact Info) Description 05/19/2024 10:00 AM EST Appointment [facility] Pulmonary Function Testing [address] [place] [address] 05/27/2024 9:40 AM EST Office Visit [facility]ties [address] [place] [address] Jag Gonzalezna S, [employer] [address] [place] [address] 07/23/2024 3:00 PM EST Office Visit [facility] [address] [place] [address] Matthew, May R, [employer] [address] [place] [address] Scheduled Orders Name Type Priority Associated Diagnoses Orde r Schedule CT Chest wo IV Contrast Imaging Routine Shortness of breath Expected: 04/09/2024 (Approximate), Expires: 10/10/2025 Pulmonary Function Testing PFT Routine Chronic obstructive pulmonary disease, unspecified COPD type (CMS/HCC) 1 Occurrences starting 04/09/2024 until 10/07/2025 Scheduled Referrals Name Type Priority Associated Diagnoses Order Schedule Ambulatory referral to Pulmonology Outpatient Referral Routine Chronic obstructive pulmonary disease, unspecified COPD type (CMS/HCC) 1 Occurrences starting 04/09/2024 until 10/07/2025 documented as of this encounter Results * XR Chest 2 Views (04/09/2024 2:00 [...] MD on 04/09/2024 2:12 PM May Matthew [employer] IMG XR PROCEDURES Final Res ult * C-reactive protein (04/09/2024 12:55 PM EST) CRP, Plasma 3.2 <=8.0 mg/L 04/09/2024 3:08 PM EST [facility] Blood Venous blood specimen / Unknown Venipuncture / Unknown 04/09/2024 12:55 PM EST 04/09/2024 12:55 PM EST Narrative [facility] - 04/09/2024 3:08 PM EST This CRP test is appropriate for assessment of infection, systemic inflammation and/or tissue injury. To assess cardiovascular disease risk order high sensitivity CRP (CRPH). May Matthew [facility] BLOOD ORDERABLES Final Result Performing Organization Address City/[facility]/ZIP Co de Phone Number [facility] [address] [place] [address] * Sedimentation Rate, Automated (04/09/2024 12:55 PM EST) Sedimentation Rate 11 <30 mm/hr 2023 3:11 PM EST [facility] Blood Venous blood specimen / Unknown Venipuncture / Unknown 04/09/2024 12:55 PM EST 04/09/2024 12:55 PM EST May Matthew [facility] BLOOD ORDERABLES Final Result [facility] [address] [place] [address] * ANTI NUCLEAR AB (04/09/2024 12:55 PM EST) SILVIA INTERPRETIVE COMMENT See Note 04/12/2024 8:01 PM EST [facility] ([place]) Anti Nuc Ab Screen <1:80 <1:80 04/12/2024 8:01 PM EST [facility] ([facility] Blood Venous blood specimen / Unknown Venipuncture / Unknown 04/09/2024 12:55 PM EST 04/09/2024 12:55 PM EST Narrative [facility] ([facility]) - 04/12/2024 8:01 PM EST Antinuclear antibodies [...] not necessarily rule out SARD. Performed By: [facility] [address] [place] [address] Flow Coordinator: Martell Anton MD, PhD CLIA Number: [id number] may Matthew [employer] [facility] BLOOD ORDERABLES Final Result [facility] ([place]) [address] [place] [address] * (ABNORMAL) RNA Polymerase III Antibody, IgG (04/09/2024 12:55 PM EST) [facility] RNA Polymerase III Antibody, IgG 58(H) 0 - 19 Units 04/13/2024 12:16 AM EST [facility] ([place]) Blood Venous blood specimen / Unknown Venipuncture / Unknown 04/09/2024 12:55 PM EST 04/09/2024 12:55 PM EST Narrative [facility] ([place]) - 04/13/2024 12:16 AM EST INTERPRETIVE INFORMATION: [...] antibodies associated with SSc, including centromere, Scl-70, U3-FROZEN MEAT CUTTER, PM/Scl, or Th/To. Performed By: [facility] [address] [place] [address] Flow Coordinator: Martell Anton MD, PhD CLIA Number: [id number] may Matthew [employer] LAB BLOOD ORDERABLES Final Result [facility] ([place]) [address] [place] [address] * Centromere Antibody, IgG (04/09/2024 12:55 PM EST) [facility] Centromere Ab, IgG 1 0 - 40 AU/mL 04/11/2024 9:58 PM EST [facility] ([place]) Blood Venous blood specimen / Unknown Venipuncture / Unknown 04/09/2024 12:55 PM EST 04/09/2024 12:55 PM EST Narrative [facility]) - 04/11/2024 9:58 PM EST INTERPRETIVE INFORMATION: [...] other antibodies associated with SSc, including Scl-70, U3-FROZEN MEAT CUTTER, PM/Scl, or Th/To. Performed By: [facility] [address] [place] [id number] Flow Coordinator: Martell Anton MD, PhD CLIA Number: [id number] may R Matthew [employer] LAB BLOOD ORDERABLES Final Result [facility] [address] [place] [address] * Anti-scleroderma antibody (04/09/2024 12:55 PM EST) Pathologist [facility] SCLERODERMA (SCL-70) (DAVID) ANTIBODY, IGG 0 0 - 40 AU/mL 04/12/2024 8:16 AM EST [facility] LISA) Blood Venous blood specimen / Unknown Venipuncture / Unknown 04/09/2024 12:55 PM EST 04/09/2024 12:55 PM EST Narrative [facility]ON[facility]ALE[facility]) - 04/12/2024 8:16 AM EST INTERPRETIVE INFORMATION: [...] testing for centromere, RNA polymerase III and U3-FROZEN MEAT CUTTER, PM/Scl, or Th/To antibodies. Performed By: [facility] [address] [place] [address] Flow Coordinator: Martell Anton MD, PhD CLIA Number: [id number] may Matthew [employer] LAB BLOOD ORDERABLES Final Result [facility] LISA) [address] [place] [address] * Myositis Antibody Panel (SO) (04/09/2024 12:55 PM EST) Hennessy/FROZEN MEAT CUTTER (DAVID) Ab, IgG 1 0 - 19 Units 04/17/2024 8:16 PM EST [facility] ([facility]) SSA-52 (RO52) (DAVID) Antibody, IgG 3 0 - 40 AU/mL 04/17/2024 8:16 PM EST [facility] ([facility]) Heydi-1 (Histidyl-tRNA Synthetase) Ab, IgG 1 0 - 40 AU/mL 04/17/2024 8:16 PM EST [facility] ([facility]) PM/Scl 100 Antibody, IgG Negative Negative 04/17/2024 8:16 PM EST [facility] ([facility]) NH-2 (NUCLEAR HELICASE PROTEIN) ANTIBODY Negative Negative 04/17/2024 8:16 PM EST [facility] ([facility]) PL-7 (THREONYL-TRNA SYNTHETASE) ANTIBODY Negative Negative 04/17/2024 8:16 PM EST [facility] ([facility]) PL-12 (ALANYL-TRNA SYNTHETASE) ANTIBODY Negative Negative 04/17/2024 8:16 PM EST [facility] ([facility]) P155/140 ANTIBODY Negative Negative 04/17/2024 8:16 PM EST [facility] ([facility]) EJ (GLYCYL-TRNA SYNTHETASE) ANTIBODY Negative Negative 04/17/2024 8:16 PM EST [facility] ([facility]) KU ANTIBODY Negative Negative 04/17/2024 8:16 PM EST [facility] ([facility]) SRP (SIGNAL RECOGNITION PARTICLE) AB Negative Negative 04/17/2024 8:16 PM EST [facility] ([facility]) OJ (ISOLEUCYL-TRNA SYNTHETASE) ANTIBODY Negative Negative 04/17/2024 8:16 PM EST [facility] ([facility]) SSA-60 (RO60) (DAVID) Antibody, IgG 0 0 - 40 AU/mL 04/17/2024 8:16 PM EST [facility] ([facility]) Fibrillarin (U3 FROZEN MEAT CUTTER) Ab, IgG Negative Negative 04/17/2024 8:16 PM EST [facility] ([facility]) MYOSITIS PANEL INTERPRETIVE DATA See Note 04/17/2024 8:16 PM EST [facility] ([facility]) SAE1 (SUMO ACTIVATING ENZYME) AB Negative Negative 04/17/2024 8:16 PM EST [facility] ([facility]) MDA5 (CADM-140) AB Negative Negative 04/17/2024 8:16 PM EST [facility] ([facility]) NXP2 (NUCLEAR MATRIX PROTEIN-2) AB Negative Negative 04/17/2024 8:16 PM EST [facility] ([facility]) TIF-1 GAMMA (155 KDA) AB Negative Negative 04/17/2024 8:16 PM EST [facility] ([facility]) Blood Venous blood specimen / Unknown Venipuncture / Unknown 04/09/2024 12:55 PM EST 04/09/2024 12:55 PM EST [facility] [place] ([facility]) - 04/17/2024 8:16 PM EST INTERPRETIVE INFORMATION: [...] . . . . . . ??X Hennessy/FROZEN MEAT CUTTER (DAVID) Ab, IgG ??. . . . . . . . . . . . . . . . ??X Heydi-1 (histidyl-tRNA synthetase) Ab, IgG ??. . ??X [...] . . . . ??X Fibrillarin (U3 FROZEN MEAT CUTTER) Ab, IgG . . . . . [...] developed and its performance characteristics determined by [employer]. 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 INTERPRETIVE INFORMATION: Hennessy/FROZEN MEAT CUTTER (DAVID) Antibody, IgG ??19 Units or Less ............. Negative ??20 to 39 Units ............... Weak Positive ??40 to 80 Units ............... Moderate Positive ??81 Units or greater .......... Strong Positive Hennessy/FROZEN MEAT CUTTER antibodies are frequently seen in patients with mixed connective tissue disease (MCTD) and are also associated with other systemic autoimmune rheumatic diseases (SARDs) such as systemic lupus erythematosus (SLE), systemic sclerosis, and myositis. Antibodies targeting the Hennessy/FROZEN MEAT CUTTER antigenic complex also recognize Hennessy antigens, therefore, [...] developed and its performance characteristics determined by [employer]. It has not been cleared or approved [...] Greater .......... Positive Interpretive Information: Fibrillarin (U3 FROZEN MEAT CUTTER) Antibody, IgG The presence of fibrillarin (U3-FROZEN MEAT CUTTER) IgG antibodies in association with an SILVIA [...] a multi-ethnic cohort of SSc patients (n=98), U3-FROZEN MEAT CUTTER antibodies detected by immunoblot had an agreement of 98.9 percent with the gold standard immunoprecipitation (IP) assay. Approximately 71 percent (5/7) of the borderline U3-FROZEN MEAT CUTTER results with SILVIA nucleolar pattern in this cohort were IP negative. This test was developed and its performance characteristics determined by [employer]. It has not been cleared or approved by the [place] Food and Drug Administration. This test was performed in a CLIA certified laboratory and is intended for clinical purposes. Performed By: [facility] [address] [place] [id number] Flow Coordinator: Martell Anton MD, PhD CLIA Number: [id number] May R Matthew COURTNEY LAB BLOOD ORDERABLES Final Result [facility] ([place]) [address] [place] [address] documented in this encounter Visit Diagnoses Diagnosis Psoriatic arthritis (CMS/HCC)- Primary Psoriatic arthropathy High risk medication use Shortness of breath Raynaud's phenomenon without gangrene Polyarthralgia Pain in joint, multiple sites Encounter for smoking cessation counseling Chronic obstructive pulmonary disease, unspecified COPD type (CMS/HCC) Acute pain of right shoulder Gastroesophageal reflux disease, unspecified whether esophagitis present Shortness of breath Chronic obstructive pulmonary disease, [...] documented as of this encounter Care Teams Office Employee Relationship Specialty Start Date End Date Alma Gross APRN [address] [place] [address] PCP - General 05/08/23 documented as of this encounter
--- OUTSIDE RECORDS SUMMARY | 2024-04-22 12:46 | XMS_ITS | Encounter Summary ---
Author Organization [facility] Address [address] [id number] Care Team Providers Care Blackjack Dealer Name Role Phone Alma Gross Cathy MILKER MACHINE Primary Care Provider [phone]- [phone] Reason for Visit * Reason Comments Follow-up Encounter Details Date Type Department Care Team (Late st Contact Info) Description 06/27/2023 12:50 PM EST Office Visit [place] [facility] Medicine Specialties [address] [place] [address] Matthew, May R, MILKER MACHINE [address] [place] [address] High risk medication use (Primary Dx) Social History Tobacco Use Types Packs/Day Years [...] Sign Reading Time Taken Comments Blood Pressure 118/78 06/27/2023 12:50 PM EST Pulse 100 06/27/2023 12:50 PM EST Temperature 36.3 ??C (97.4 ??F) 06/27/2023 1 2:50 PM EST Respiratory Rate 16 06/27/2023 12:5 0 PM EST Oxygen Saturation 95% 06/27/2023 12: 50 PM EST Inhaled Oxygen Concentration - - Weight 91.6 kg (201 lb 15.1 oz) 024 12:50 PM EST Height 175.3 cm (5' 9 ) 06/27/2023 12:5 0 PM EST Body Mass Index 29.82 06/27/2023 12:50 PM EST documented in this encounter Patient Instructions * Attachments The following attachments cannot be sent through Care Everywhere. * Sulfasalazine Oral Tablet (Lithuanian) * Folic Acid Oral Tablet (Lithuanian) documented in this encounter Miscellaneous Notes * Progress Notes - Matthew, May R, MILKER MACHINE - 06/27/2023 12:50 PM EST Images from the original note were [...] 17, rheumatoid factor 11.6, SILVIA positive 1:1280nucleolar Last visit:: Bilateral knee pain. Has had a tear right achilles then rupture. Has had heel spur surgery. Had PRP injection in achilles and plantar fascia. Dr. Reed in [place]. Right knee mensicus tear. Currently in PT for achilles. She did not have surgery. Shoulder and arm pain. Hip pain. Low back pain. Failed Naproxen and Diclofenac Today: Knee pain. Foot pain. Did improve with Prednisone. Initial Rheumatological ROS positive for dry mouth, [...] No hx of alcohol abuse. Occupational hx: [employer] at [employer] in [place] The following portions of the chart were reviewed this encounter and updated as appropriate: Past Medical History: Diagnosis Date Achilles tendon tear Asthma Bunion Carpal tunnel syndrome COPD (chronic obstructive pulmonary disease) ([facility]) Fallen arches Gallstone Herniated cervical disc Hypertension [...] 1980 Smokeless tobacco: Never Vaping Use Vaping Use: Never used Substance and Sexual Activity Alcohol use: Yes [...] then one tablet daily 49 tablet 0 Tiotropium [place] Monohydrate (Spiriva Respimat) 2.5 MCG/ACT inhaler Inhale 2 puffs 1 (one) time each day. traMADol (Ultram) 50 MG tablet 1 tablet (50 mg). traZODone (Desyrel) 50 MG tablet Take 1 tablet (50 mg) by mouth at night if needed for sleep. Trelegy Ellipta 200-62.5-25 MCG/ACT aerosol powder Inhale 1 puff. folic acid (Folvite) 1 MG tablet Take 1 tablet (1 mg) by mouth 1 (one) time each day. 90 tablet 2 sulfaSALAzine (Azulfidine) 500 MG EC tablet Do not crush, chew, or split. One pill daily x1 week then one pill twice daily x1 week then one in am and two tablets in PM x1 week then 2 tablets twice daily. Take with food 120 tablet 2 No current facility-administered medications for this visit. Objective Vitals: 06/27/23 1250 BP: 118/78 Pulse: 100 Resp: 16 Temp: 36.3 ??C (97.4 ??F) SpO2: 95% Physical Exam Vitals reviewed. Constitutional: General: She [...] andcomplete the homunculus joint exam. Joint Exam 06/27/2023 No joint exam has been documented for this visit 05/30/2023 RAMIREZ-28 (ESR) -- RAMIREZ-28 (CRP) -- Tender (RAMIREZ-28) 2 / Swollen (RAMIREZ-28) 0 Provider Global -- Patient Global -- ESR -- CRP -- Swollen Joint Count: Swollen: -- 0 Tender Joint Count: Tender: -- 2 Patient global assessment: 12/28 Rapid 3 score: 23.7/30 CDAI:18 IMAGING 05/30/2023 FINDINGS: Right hand and wrist: [...] Diagnosis Plan 1. High risk medication use sulfaSALAzine (Azulfidine) 500 MG EC tablet folic acid (Folvite) 1 MG tablet CBC and Differential C-Reactive Protein, Plasma Hepatic Function Panel Creatinine, Plasma Diagnosis Plan 1. PsA/ SILVIA positive 1:1280 nucleolar Diff Dx: PsA, RA, SpA No synovitis Right achilles tender and swollen ( hx of tenosynovitis, tendon tear,) Brother with Psoriasis History sounds mixed mechanical/inflammatory + enthesopathy Pt denied Raynaud's Arley criteria + family hx + nail dystrophy Neg RF predniSONE (Deltasone) 5 MG tablet 3 week taper ( took a week to see any affect and actually her PCP increased dose) Finally it started to help. Discussed risks vs benefits of medication CBC, creat and LFTs wnl TB neg HEP ABC, HIV neg ESR 30 Neg RF, CCP CRP Active with PT for low back pain Pt may be switching health insurance if she gets terminated from her job. MRI pending of Lumbar Spine Start SSZ titrate slowly Toxicities of Sulfasalazine We [...] even register <12.5 Pt is now taking 5000 in daily and followed by PCP 4. High risk medication monitoring SSZ -CBC, CMP, q3 months -HIV neg 05/2023 -HBV neg 05/2023 -HCV neg 05/2023 -TB Quant Gold -Prevnar -Pneumovax -COVID HCQ - eye exam Counseled on importance of contraception RTC 3 months and lab only 1 month ( [facility]) Today, I personally spent minutes on the [...] Parts of this note were dictated using Bespoke voice recognition software. As a result, errors may occur. When identified, these breaker mechanic errors are corrected, but while every attempt is made to prevent/correct these, errors may still exist. Note to patient: The 21st Century Cures Act makes medical notes like [...] H Pulmonary Function Testing [address] [place] [address] 05/27/2024 9:40 AM EST Office Visit [place] Clinic Medicine Specialties [address] [place] [address] Rupal Gonzalez APRN [address] [place] [address] 07/23/2024 3:00 PM EST Office Visit [place] [facility] [address], [address] [place] [address] Matthew, May R, MILKER MACHINE [address] [place] [address] documented as of this encounter Visit Diagnoses Diagnosis High risk medication use- Primary documented in this encounter Additional Health Concerns Assessment Noted Time A fall risk assessment has been complete d for the patient 06/27/2023 12:55 PM EST A Body Mass Index follow-up plan has been documented for the patient 06/27/2023 1:50 PM EST documented as of this encounter Care Teams Blackjack Dealer Relationship Specialty Start Date End Date Alma Gross APRN [address] [place] [address] PCP - General 05/08/23 documented as of this encounter
[2024-04-22 13:35] VITALS: PULSE 103; PULSE 96
[2024-04-22] MEDS: ALBUTEROL 0.083% 2.5 MG/3 ML NEB IH (13:40)
== END 2024-04-22 23:59 | disposition home or self-care (01) ==
LOC: RT 12:44
PROVIDERS: PCP Nurse Practitioner Family; Visit Provider Nurse Practitioner Family
DX: R06.09 Other forms of dyspnea (principal); J44.9 Chronic obstructive pulmonary disease, unspecified; G47.34 Idiopathic sleep related nonobstructive alveolar hypoventilation
CPT/HCPCS: 94060; 94640; J7613

== ENCOUNTER → 2024-04-23 07:33 | Outpatient (CLI) | payer OTHER, SELFPAY ==
--- OUTSIDE RECORDS SUMMARY | 2024-04-23 07:35 | XMS_ITS | Encounter Summary ---
Author Organization [facility] Address [address] [place] [address] Care Team Providers Care City Controller Name Role Phone Alma Gross SHERWIN Primary Care Provider +1- [phone] Encounter Details Date Type Department Care Team [...] H Pulmonary Function Testing [address] [place] [address] 05/27/2024 9:40 AM EST Office Visit [place] [facility] [address] [place] [address] Rupal Gonzalez APRN [address] [place] [address] 07/23/2024 3:00 PM EST Office Visit [place] [facility] [address] [place] [address] Matthew May R, VICE PRESIDENT OF CONTRACTS [address] [place] [address] documented as of this encounter Visit Diagnoses Not on filedocumented in this encounter Additional Health Concerns Assessment Noted Time A fall risk assessment has been complete d for the patient 04/09/2024 11:04 AM EST A Body Mass Index follow-up plan has been documented for the patient 04/09/2024 12:25 PM EST documented as of this encounter Care Teams City Controller Relationship Specialty Start Date End Date Alma Gross, VICE PRESIDENT OF CONTRACTS [address] [place] [address] PCP - General 05/08/23 documented as of this encounter
--- OUTSIDE RECORDS SUMMARY | 2024-04-23 07:35 | XMS_ITS | Encounter Summary ---
Author Organization [facility] Address [address] [place] [address] Care Team Providers Care Floor Sanding Machine Operator Name Role Phone Alma Gross Cathy COURTNEY Primary Care Provider +1- [phone] Reason for Referral * Consultation (Routine) - Authorized Specialty Diagnoses / Procedures Referred By Joyce jonse Referred To Contact Pulmonology Diagnoses Chronic obstructive pulmonary disease, unspecified COPD type (CMS/HCC) May [address] [address] Phone: tel: fax: [place] [facility] [address] [place] [address] Phone: tel: fax: Referral ID Status Reason Start Date Expiration Date Visits Requested Visits Authorized [id number] Authorized Specialty Services Required 10/09/2025 1 1 Scheduling Instructions Possible ILD. * Imaging (Routine) - Pending Review Specialty Diagnoses / Procedures Referred By Joyce jones Referred To Contact Radiology Diagnoses Shortness of breath Procedures CT Chest wo IV Contrast CT Chest wo IV Contrast Matthewmay, [address] [address] Phone: tel: fax: Referral ID Status Reason Start Date Expiration Date V isits Requested Visits Authorized [id number] Pending Review 04/09/2024 10/09/2025 1 1 Reason for Visit * Reason Comments Follow-up Encounter Details Date Type Department Care Team (Late st Contact Info) Description 04/09/2024 10:00 AM EST Office Visit [place] [facility] [address] [place] [address] Matthew May, [address] [place] [address] Psoriatic arthritis (CMS/HCC) (Primary Dx); [...] * Progress Notes - Matthew, Cristel R, LENDING ADVISOR - 04/09/2024 10:00 AM EST Images from [...] knee mensicus tear verified by MRI from [facility]. Has ortho appt pending. Feels the SSZ is helping. Taking 2 SSZ BID. Had labs drawn on Sunday from [facility]. Reviewed labs ok to continue. [...] No hx of alcohol abuse. 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 Raynaud's on feet noticed recently +GERD Estero criteria + family hx + nail dystrophy [...] of chronic medical conditions. Treatment optionswere discussed, [id number]-[id number] Nicoderm 14 mg and 7 mg patch [...] Parts of this note were dictated using Andrew Alliance voice recognition software. As a result, errors may occur. When identified, these yarn winder errors are corrected, but while every attempt [...] PAV H Pulmonary Function Testing [address] [place] [address] 05/27/2024 9:40 AM EST Office Visit [facility] Medicine Specialties [address] [place] [address] Jag Gonzalezna S, LENDING ADVISOR [address] [place] [address] 07/23/2024 3:00 PM EST Office Visit [place] [facility] [address], [address] [place] [address] Matthew, May R, LENDING ADVISOR [address] [place] [address] Scheduled Orders Name Type Priority [...] MD on 04/09/2024 2:12 PM May Matthew LENDING ADVISOR IMG XR PROCEDURES Final Res ult * C-reactive protein (04/09/2024 12:55 PM EST) CRP, Plasma 3.2 <=8.0 mg/L 04/09/2024 3:08 PM EST [facility] Blood Venous blood specimen / Unknown Venipuncture / Unknown 04/09/2024 12:55 PM EST 04/09/2024 12:55 PM EST Narrative [facility] - 04/09/2024 3:08 PM EST This CRP test is appropriate for assessment of infection, systemic inflammation and/or tissue injury. To assess cardiovascular disease risk order high sensitivity CRP (CRPH). May Matthew [facility] BLOOD ORDERABLES Final Result Performing Organization Address City/[facility]/ZIP Co de Phone Number [facility] [address] [place] [address] * Sedimentation Rate, Automated (04/09/2024 12:55 PM EST) Sedimentation Rate 11 <30 mm/hr 2023 3:11 PM EST [facility] Blood Venous blood specimen / Unknown Venipuncture / Unknown 04/09/2024 12:55 PM EST 04/09/2024 12:55 PM EST May Matthew [facility] BLOOD ORDERABLES Final Result [facility] [address] [place] [address] * ANTI NUCLEAR AB (04/09/2024 12:55 PM EST) SILVIA INTERPRETIVE COMMENT See Note 04/12/2024 8:01 PM EST [facility] ([place]) Anti Nuc Ab Screen <1:80 <1:80 04/12/2024 8:01 PM EST [facility] ([place]) Blood Venous blood specimen / Unknown Venipuncture / Unknown 04/09/2024 12:55 PM EST 04/09/2024 12:55 PM EST Narrative [facility] ([place]) - 04/12/2024 8:01 PM [...] not necessarily rule out SARD. Performed By: [facility] [address] [place] [address] Ride Mechanic: Martell Anton MD, PhD CLIA Number: [id number] may Matthew LENDING ADVISOR LAB BLOOD ORDERABLES Final Result [facility] ([place]) [address] [place] [address] * (ABNORMAL) RNA Polymerase III Antibody, IgG (04/09/2024 12:55 PM EST) [facility] RNA Polymerase III Antibody, IgG 58(H) 0 - 19 Units 04/13/2024 12:16 AM EST [facility] ([place]) Blood Venous blood specimen / Unknown Venipuncture / Unknown 04/09/2024 12:55 PM EST 04/09/2024 12:55 PM EST Narrative [facility] ([place]) - 04/13/2024 12:16 AM EST INTERPRETIVE [...] antibodies associated with SSc, including centromere, Scl-70, U3-SUPERVISOR METAL FABRICATING, PM/Scl, or Th/To. Performed By: [facility] [address] [place] [address] Ride Mechanic: Martell Anton MD, PhD CLIA Number: [id number] may Matthew LENDING ADVISOR LAB BLOOD ORDERABLES Final Result [facility] ([place]) [address] [place] [address] * Centromere Antibody, IgG (04/09/2024 12:55 PM EST) [facility] Centromere Ab, IgG 1 0 - 40 AU/mL 04/11/2024 9:58 PM EST [facility] ([place]) Blood Venous blood specimen / Unknown Venipuncture / Unknown 04/09/2024 12:55 PM EST 04/09/2024 12:55 PM EST Narrative [facility] DERRICK GONZALEZ) - 04/11/2024 9:58 PM [...] other antibodies associated with SSc, including Scl-70, U3-SUPERVISOR METAL FABRICATING, PM/Scl, or Th/To. Performed By: [facility] [address] [place] [address] Ride Mechanic: Martell Anton MD, PhD CLIA Number: [id number] may R Matthew LENDING ADVISOR LAB BLOOD ORDERABLES Final Result [email or web address]) [address] [place] [address] * Anti-scleroderma antibody (04/09/2024 12:55 PM EST) Pathologist [facility] SCLERODERMA (SCL-70) (DAVID) ANTIBODY, IGG 0 0 - 40 AU/mL 04/12/2024 8:16 AM EST [facility] LISA) Blood Venous blood specimen / Unknown [...] testing for centromere, RNA polymerase III and U3-SUPERVISOR METAL FABRICATING, PM/Scl, or Th/To antibodies. Performed By: [facility] [address] [place] [address] Ride Mechanic: Martell Anton MD, PhD CLIA Number: [id number] may Matthew LENDING ADVISOR LAB BLOOD ORDERABLES Final Result [facility] LISA) [address] [place] [address] * Myositis Antibody Panel (SO) (04/09/2024 12:55 PM EST) Hennessy/SUPERVISOR METAL FABRICATING (DAVID) Ab, IgG 1 0 - 19 Units 04/17/2024 8:16 PM EST [facility] ([place]) SSA-52 (RO52) (DAVID) Antibody, IgG 3 0 - 40 AU/mL 04/17/2024 8:16 PM EST [facility] ([place]) Heydi-1 (Histidyl-tRNA Synthetase) Ab, IgG 1 0 - 40 AU/mL 04/17/2024 8:16 PM EST [facility] ([place]) PM/Scl 100 Antibody, IgG Negative Negative 04/17/2024 8:16 PM EST [facility] ([place]) TN-2 (NUCLEAR HELICASE PROTEIN) ANTIBODY Negative Negative 04/17/2024 8:16 PM EST [facility] ([place]) PL-7 (THREONYL-TRNA SYNTHETASE) ANTIBODY Negative Negative 04/17/2024 8:16 PM EST [facility] ([place]) PL-12 (ALANYL-TRNA SYNTHETASE) ANTIBODY Negative Negative 04/17/2024 8:16 PM EST [facility] ([facility]) P155/140 ANTIBODY Negative Negative 04/17/2024 8:16 PM EST [facility] ([facility]) EJ (GLYCYL-TRNA SYNTHETASE) ANTIBODY Negative Negative 04/17/2024 8:16 PM EST [facility] ([facility]) KU ANTIBODY Negative Negative 04/17/2024 8:16 PM EST [facility] ([facility]) SRP (SIGNAL RECOGNITION PARTICLE) AB Negative Negative 04/17/2024 8:16 PM EST [facility] ([facility]) OJ (ISOLEUCYL-TRNA SYNTHETASE) ANTIBODY Negative Negative 04/17/2024 8:16 PM EST [facility] ([facility]) SSA-60 (RO60) (DAVID) Antibody, IgG 0 0 - 40 AU/mL 04/17/2024 8:16 PM EST [facility] ([facility]) Fibrillarin (U3 SUPERVISOR METAL FABRICATING) Ab, IgG Negative Negative 04/17/2024 8:16 PM EST [facility] ([facility]) MYOSITIS PANEL INTERPRETIVE DATA See Note 04/17/2024 8:16 PM EST [facility] ([facility]) SAE1 (SUMO ACTIVATING ENZYME) AB Negative Negative 04/17/2024 8:16 PM EST [facility] ([facility]) MDA5 (CADM-140) AB Negative Negative 04/17/2024 8:16 PM EST [facility] ([facility]) NXP2 (NUCLEAR MATRIX PROTEIN-2) AB Negative Negative 04/17/2024 8:16 PM EST [facility] ([facility]) TIF-1 GAMMA (155 KDA) AB Negative Negative 04/17/2024 8:16 PM EST [facility] ([facility]) Blood Venous blood specimen / Unknown Venipuncture / Unknown 04/09/2024 12:55 PM EST 04/09/2024 12:55 PM EST [facility] ([facility]) - 04/17/2024 8:16 PM [...] . . . . . . ??X Hennessy/SUPERVISOR METAL FABRICATING (DAVID) Ab, IgG ??. . . . [...] . . . . ??X Fibrillarin (U3 SUPERVISOR METAL FABRICATING) Ab, IgG . . . . . [...] developed and its performance characteristics determined by [facility]. It has not been cleared or approved [...] (interstitial lung disease), Raynaud phenomenon, arthritis, and mechanical integrity specialist's hands (implicated in antisynthetase syndrome). INTERPRETIVE INFORMATION: Hennessy/SUPERVISOR METAL FABRICATING (DAVID) Antibody, IgG ??19 Units or Less ............. Negative ??20 to 39 Units ............... Weak Positive ??40 to 80 Units ............... Moderate Positive ??81 Units or greater .......... Strong Positive Hennessy/SUPERVISOR METAL FABRICATING antibodies are frequently seen in patients with mixed connective tissue disease (MCTD) and are also associated with other systemic autoimmune rheumatic diseases (SARDs) such as systemic lupus erythematosus (SLE), systemic sclerosis, and myositis. Antibodies targeting the Hennessy/SUPERVISOR METAL FABRICATING antigenic complex also recognize Hennessy antigens, therefore, [...] developed and its performance characteristics determined by [facility]. It has not been cleared or approved [...] Greater .......... Positive Interpretive Information: Fibrillarin (U3 SUPERVISOR METAL FABRICATING) Antibody, IgG The presence of fibrillarin (U3-SUPERVISOR METAL FABRICATING) IgG antibodies in association with an SILVIA [...] a multi-ethnic cohort of SSc patients (n=98), U3-SUPERVISOR METAL FABRICATING antibodies detected by immunoblot had an agreement of 98.9 percent with the gold standard immunoprecipitation (IP) assay. Approximately 71 percent (5/7) of the borderline U3-SUPERVISOR METAL FABRICATING results with SILVIA nucleolar pattern in this cohort were IP negative. This test was developed and its performance characteristics determined by [facility]. It has not been cleared or approved by the [place] Food and Drug Administration. This test was performed in a CLIA certified laboratory and is intended for clinical purposes. Performed By: [facility] [address] [place] [address] Ride Mechanic: Martell Anton MD, PhD CLIA Number: [id number] May R Matthew COURTNEY LAB BLOOD ORDERABLES Final Result [facility] ([place]) [address] [place] [address] documented in this encounter Visit Diagnoses Diagnosis [...] documented as of this encounter Care Teams Floor Sanding Machine Operator Relationship Specialty Start Date End Date Alma Gross APRN [address] [place] [address] PCP - General 05/08/23 documented as of this encounter
--- OUTSIDE RECORDS SUMMARY | 2024-04-23 07:35 | XMS_ITS | Encounter Summary ---
Author Organization [facility] Address [address] [place] [address] Care Team Providers Care Chief Accounting Officer Name Role Phone Alma Gross Cathy COURTNEY Primary Care Provider +1- [phone] Reason for Visit * Reason Comments Arthritis Encounter Details Date Type Department Care Team (Late st Contact Info) Description 10/01/2023 12:00 PM EDT Office Visit [facility] [address] [place] [address] Matthew, May R, ASSOCIATE EDITOR [address] [place] [address] High risk medication use (Primary [...] achilles and plantar fascia. Dr. Reed in [place]. Right knee mensicus tear. Currently in PT for achilles. She did not have surgery. Shoulder and arm pain. Hip pain. Low back pain. Failed Naproxen and Diclofenac Knee pain. Foot pain. Did improve with Prednisone. Today: Left knee mensicus tear verified by MRI from [facility]. Has ortho appt pending. Feels the SSZ is helping. Taking 2 SSZ BID. Had labs drawn on Sunday from [facility]. Reviewed labs ok to continue. Right [...] No hx of alcohol abuse. 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 [place] The following portions of the chart were reviewed this encounter and updated as appropriate: Past Medical History: Diagnosis Date Achilles tendon tear Asthma Bunion Carpal tunnel syndrome COPD (chronic obstructive pulmonary disease) ([facility]) Fallen arches Gallstone Herniated cervical disc Hypertension [...] Take with food 120 tablet 2 Tiotropium [place] Monohydrate (Spiriva Respimat) 2.5 MCG/ACT inhaler Inhale [...] mixed mechanical/inflammatory + enthesopathy Pt denied Raynaud's Middleton criteria + family hx + nail dystrophy [...] Parts of this note were dictated using [email or web address] Direct voice recognition software. As a result, errors may occur. When identified, these orthotic technician errors are corrected, but while every [...] H Pulmonary Function Testing [address] [place] [address] 05/27/2024 9:40 AM EST Office Visit [facility] Medicine Specialties [address] [place] [address] Rupal Gonzalez S, ASSOCIATE EDITOR [address] [place] [address] 07/23/2024 3:00 PM EST Office Visit [facility] Medicine Specialties [address] [place] [address] Matthew May R, ASSOCIATE EDITOR [address] [place] [address] documented as of this encounter Results * Hepatic Function Panel (04/09/2024 12:55 PM EST) Conjugated Bilirubin, Plasma <0.2 0.0 - 0.3 mg/dL 04/09/2024 3:08 PM EST [facility] Alkaline Phosphatase, Plasma 86 46 - 142 U/L 04/09/2024 3:08 PM EST [facility] Total Bilirubin, Plasma 0.3 0.2 - 1.1 mg/dL 04/09/2024 3:08 PM EST [facility] Albumin, Plasma 4.1 3.5 - 5.2 g/dL 04/09/2024 3:08 PM EST [facility] Total Protein 6.7 6.3 - 7.9 g/dL 04/09/2024 3:08 PM EST [facility] ALT, Plasma 17 10 - 35 U/L 04/09/2024 3:08 PM EST [facility] AST, Plasma 20 10 - 35 U/L 04/09/2024 3:08 PM EST [facility] Blood Venous blood specimen / Unknown Venipuncture / Unknown 04/09/2024 12:55 PM EST 04/09/2024 12:55 PM EST us May R Matthew ASSOCIATE EDITOR LAB BLOOD ORDERABLES Final Result Performing Organization Address City/[facility]/ZIP Co de Phone Number [facility] [address] [place] [address] * Creatinine, Plasma (04/09/2024 12:55 PM EST) Creatinine, Plasma 0.75 0.60 - 1.10 mg/dL 04/09/2024 3:08 PM EST [facility] eGFRcr 90.7 mL/min/1.7 3m*2 04/09/2024 3:08 PM EST [facility] Comment:Reported eGFRcr in m L/min/1.73m2 is based the CKD-EPI 2020 equation that does not use a race coefficient. Blood Venous blood specimen / Unknown Venipuncture / Unknown 04/09/2024 12:55 PM EST 04/09/2024 12:55 PM EST us May R Matthew COURTNEY LAB BLOOD ORDERABLES Final Result Performing Organization Address City/[facility]/ZIP Co de Phone Number [facility] [address] [place] [address] * (ABNORMAL) CBC and Differential (04/09/2024 12:55 PM EST) WBC Count 6.84 3.70 - 10.30 10*3/uL LAB HEMATOLOGY METHOD 04/09/2024 3:02 PM EST [facility] RBC Count 4.84 3.90 - 5.20 10*6/uL LAB HEMATOLOGY METHOD 04/09/2024 3:02 PM EST [facility] HGB 14.8 11.2 - 15.7 g/dL LAB HEMATOLOGY METHOD 04/09/2024 3:02 PM [facility] HCT 45.7(H) 34.0 - 45.0 % LAB HEMATOLOGY METHOD 04/09/2024 3:02 PM [facility] Platelet Count 247 155 - 369 10*3/uL LAB HEMATOLOGY METHOD 04/09/2024 3:02 PM [facility] MCV 94 79 - 98 fL LAB HEMATOLOGY METHOD 04/09/2024 3:02 PM [facility] MCH 30.6 26.0 - 32.0 pg LAB HEMATOLOGY METHOD 04/09/2024 3:02 PM [facility] MCHC 32.4 30.7 - 35.5 g/dL LAB HEMATOLOGY METHOD 04/09/2024 3:02 PM [facility] RDW 12.8 11.5 - 14.5 % LAB HEMATOLOGY METHOD 04/09/2024 3:02 PM [facility] MPV 11.3 8.8 - 12.5 fL LAB HEMATOLOGY METHOD 04/09/2024 3:02 PM [facility] nRBC 0.0 <=0.0 per 100 WBCs LAB HEMATOLOGY METHOD 04/09/2024 3:02 PM [facility] Differential Type Automated LAB HEMATOLOGY METHOD 04/09/2024 3:02 PM [facility] Neutrophils % 60 % LAB HEMATOLOGY METHOD 04/09/2024 3:02 PM [facility] Lymphocytes % 31 % LAB HEMATOLOGY METHOD 04/09/2024 3:02 PM [facility] Monocytes % 6 % LAB HEMATOLOGY METHOD 04/09/2024 3:02 PM [facility] Eosinophils % 2 % LAB HEMATOLOGY METHOD 04/09/2024 3:02 PM [facility] Basophils % 1 % LAB HEMATOLOGY METHOD 04/09/2024 3:02 PM [facility] Immature Granulocytes % 0 % LAB HEMATOLOGY METHOD 04/09/2024 3:02 PM [facility] Neutrophils Absolute 4.12 1.60 - 6.10 10*3/uL LAB HEMATOLOGY METHOD 04/09/2024 3:02 PM [facility] Lymphocytes Absolute 2.10 1.20 - 3.90 10*3/uL LAB HEMATOLOGY METHOD 04/09/2024 3:02 PM [facility] Monocytes Absolute 0.42 0.30 - 0.90 10*3/uL LAB HEMATOLOGY METHOD 04/09/2024 3:02 PM EST [facility] Eosinophils Absolute 0.13 0.00 - 0.50 10*3/uL LAB HEMATOLOGY METHOD 04/09/2024 3:02 PM EST [facility] Basophils Absolute 0.05 0.00 - 0.10 10*3/uL LAB HEMATOLOGY METHOD 04/09/2024 3:02 PM EST [facility] Immature Granulocytes Absolute 0.02 0.00 - 0.06 10*3/uL LAB HEMATOLOGY METHOD 04/09/2024 3:02 PM EST [facility] Blood Venous blood specimen / Unknown Venipuncture / Unknown 04/09/2024 12:55 PM EST 04/09/2024 12:55 PM EST Narrative [facility] - 04/09/2024 3:02 PM EST Therapeutic decision making should be based on absolute values, rather than percentages. May R Matthew ASSOCIATE EDITOR LAB BLOOD ORDERABLES Final Result [facility] [address] [place] [address] documented in this encounter Visit Diagnoses Diagnosis [...] documented as of this encounter Care Teams Chief Accounting Officer Relationship Specialty Start Date End Date Alma Gross APRN [address] [place] [address] PCP - General 05/08/23 documented as of this encounter
--- OUTSIDE RECORDS SUMMARY | 2024-04-23 07:35 | XMS_ITS | Encounter Summary ---
Author Organization [facility] Address [address] [place] [address] Care Team Providers Care Tobacco Classer Name Role Phone Alma Gross SHERWIN Primary Care Provider +1- [phone] Encounter Details Date Type Department Care Team (Late st Contact Info) Description 02/22/2024 Orders Only [facility] Medicine Specialties [address] [place] [address] Martell Rendon, PharmD Special[facility] [address] [place] [address] High risk medication use; Psoriatic arthritis (CMS/HCC) [...] PAV H Pulmonary Function Testing [address] [place] [address] 05/27/2024 9:40 AM EST Office Visit [facility] [address] [place] [address] Rupal Gonzalez S, SUPERVISOR [employer] [address] [place] [address] 07/23/2024 3:00 PM EST Office Visit [facility] [address] [place] [address] Cristel Castro R, SUPERVISOR [employer] [address] [place] [address] documented as of this encounter Visit Diagnoses Diagnosis High risk medication use Psoriatic arthritis ([facility]) Psoriatic arthropathy documented in this encounter Additional Health Concerns Assessment Noted Time A fall risk assessment has been complete d for the patient 10/01/2023 12:11 PM EDT A Body Mass Index follow-up plan has been documented for the patient 10/01/2023 12:47 PM EDT documented as of this encounter Care Teams Tobacco Classer Relationship Specialty Start Date End Date Alma Gross APRN [address] [place] [address] PCP - General 05/08/23 documented as of this encounter
--- OUTSIDE RECORDS SUMMARY | 2024-04-23 07:35 | XMS_ITS | Clinical Summary ---
Author Organization [facility] Address [address] [place] [address] Care Team Providers Care Gas Torch Brazier Name Role Phone GrossHeather sharmanaima Morgan APRN Primary Care Provider +1- [phone] Allergies No known active allergies Medications albuterol [...] 180 tablet 2 04/09/20 24 Active Tiotropium Sabael Monohydrate (Spiriva Respimat) 2.5 MCG/ACT inhaler Inhale [...] - 04/09/2024 11:59 PM EST Hospital Encounter [facility] Radiology [address], 1st [place] [address] Shortness of breath; Chronic obstructive pulmonary disease, unspecified COPD type (CMS/HCC); Acute pain of right shoulder Discharge Disposition: Home or Self Care 04/09/2024 10:00 AM EST Office Visit [facility] Medicine Specialties [address], 2nd [place] [address] Matthew, Cristel R, SOUND RANGING CREWMEMBER Psoriatic arthritis (CMS/HCC) (Primary Dx); High risk medication use; Shortness of breath; Raynaud's phenomenon without gangrene; Polyarthralgia; Encounter for smoking cessation counseling; Chronic obstructive pulmonary disease, unspecified COPD type (CMS/HCC); Acute pain of right shoulder; Gastroesophageal reflux disease, unspecified whether esophagitis present 04/09/2024 Travel 04/08/2024 Travel 02/22/2024 Orders Only [facility] Medicine Specialties [address], [address]nd [place] [address] Martell Rendon, PharmD High risk medication use; Psoriatic arthritis (CMS/[facility]) from Last 3 Months Family History [...] H Pulmonary Function Testing [address] [place] [address] 05/27/2024 9:40 AM EST Office Visit [facility] Medicine Specialties [address], [address] [place] [address] Rupal Gonzalez S, SOUND RANGING CREWMEMBER [address] [place] [address] 07/23/2024 3:00 PM EST Office Visit [facility] Medicine Specialties [address], [address] [place] [address] MatthewCristel doe R, SOUND RANGING CREWMEMBER [address] [place] [address] Health Maintenance Due Date Last [...] - Risk 60-74 years 1-dose series) 2023 [id number] Vaccine ( - 2023- season) 2024 02/05/2024, [...] on 04/09/2024 2:24 PM may R Matthew SOUND RANGING CREWMEMBER IMG XR PROCEDURES Final Res ult * [...] - 19 Units 04/13/2024 12:16 AM EST [facility] ([facility]) Blood Venous blood specimen / Unknown Venipuncture / Unknown 04/09/2024 12:55 PM EST 04/09/2024 12:55 PM EST Narrative [facility] [employer] Nature) - 04/13/2024 12:16 AM EST INTERPRETIVE INFORMATION: [...] antibodies associated with SSc, including centromere, Scl-70, U3-LODE MINER BLASTING, PM/Scl, or Th/To. Performed By: [facility] [address] [place] [address] Dye Tub Tender: Martell Anton MD, PhD CLIA Number: [id number] May Matthew COURTNEY LAB BLOOD ORDERABLES Final Result [employer]) [address] [place] [address] * Centromere Antibody, IgG (04/09/2024 12:55 PM EST) Centromere Ab, IgG 1 0 - 40 AU/mL 04/11/2024 9:58 PM EST [facility] (MIKE) Blood Venous blood specimen / Unknown Venipuncture / Unknown 04/09/2024 12:55 PM EST 04/09/2024 12:55 PM EST Narrative [facility] LISA) - 04/11/2024 9:58 PM EST INTERPRETIVE [...] other antibodies associated with SSc, including Scl-70, U3-LODE MINER BLASTING, PM/Scl, or Th/To. Performed By: [facility] [address] [place] [address] Dye Tub Tender: Martell Anton MD, PhD CLIA Number: [id number] may Matthew SOUND RANGING CREWMEMBER LAB BLOOD ORDERABLES Final Result [facility] (MIKE) [address] [place] [address] * Myositis Antibody Panel (SO) (04/09/2024 12:55 PM EST) Hennessy/LODE MINER BLASTING (DAVID) Ab, IgG 1 0 - 19 Units 04/17/2024 8:16 PM EST [facility] ([facility]) SSA-52 (RO52) (DAVID) Antibody, IgG 3 0 - 40 AU/mL 04/17/2024 8:16 PM EST [facility] ([facility]) Heydi-1 (Histidyl-tRNA Synthetase) Ab, IgG 1 0 - 40 AU/mL 04/17/2024 8:16 PM EST [facility] ([facility]) PM/Scl 100 Antibody, IgG Negative Negative 04/17/2024 8:16 PM EST [facility] ([facility]) AZ-2 (NUCLEAR HELICASE PROTEIN) ANTIBODY Negative Negative 04/17/2024 8:16 PM EST [facility] ([facility]) PL-7 (THREONYL-TRNA SYNTHETASE) ANTIBODY Negative Negative 04/17/2024 8:16 PM EST [facility] ([facility]) PL-12 (ALANYL-TRNA SYNTHETASE) ANTIBODY Negative Negative 04/17/2024 8:16 PM EST [facility] ([facility]) P155/140 ANTIBODY Negative Negative 04/17/2024 8:16 PM EST [facility] ([facility]) EJ (GLYCYL-TRNA SYNTHETASE) ANTIBODY Negative Negative 04/17/2024 8:16 PM EST [facility] ([facility]) KU ANTIBODY Negative Negative 04/17/2024 8:16 PM EST [facility] ([facility]) SRP (SIGNAL RECOGNITION PARTICLE) AB Negative Negative 04/17/2024 8:16 PM EST [facility] ([facility]) OJ (ISOLEUCYL-TRNA SYNTHETASE) ANTIBODY Negative Negative 04/17/2024 8:16 PM EST [facility] ([facility]) SSA-60 (RO60) (DAVID) Antibody, IgG 0 0 - 40 AU/mL 04/17/2024 8:16 PM EST [facility] ([facility]) Fibrillarin (U3 LODE MINER BLASTING) Ab, IgG Negative Negative 04/17/2024 8:16 PM EST [facility] ([employer]) MYOSITIS PANEL INTERPRETIVE DATA See Note 04/17/2024 8:16 PM EST [facility] ([employer]) SAE1 (SUMO ACTIVATING ENZYME) AB Negative Negative 04/17/2024 8:16 PM EST [facility] (BEAKER) MDA5 (CADM-140) AB Negative Negative 04/17/2024 8:16 PM EST [facility] ([facility]) NXP2 (NUCLEAR MATRIX PROTEIN-2) AB Negative Negative 04/17/2024 8:16 PM EST [facility] ([facility]) TIF-1 GAMMA (155 KDA) AB Negative Negative 04/17/2024 8:16 PM EST [facility] ([facility]) Blood Venous blood specimen / Unknown Venipuncture / Unknown 04/09/2024 12:55 PM EST 04/09/2024 12:55 PM EST [facility] [place] ([facility]) - 04/17/2024 8:16 PM EST INTERPRETIVE INFORMATION: [...] . . . . . . ??X Hennessy/LODE MINER BLASTING (DAVID) Ab, IgG ??. . . . [...] . . . . ??X Fibrillarin (U3 LODE MINER BLASTING) Ab, IgG . . . . . [...] developed and its performance characteristics determined by [employer]. 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 INTERPRETIVE INFORMATION: Hennessy/LODE MINER BLASTING (DAVID) Antibody, IgG ??19 Units or Less ............. Negative ??20 to 39 Units ............... Weak Positive ??40 to 80 Units ............... Moderate Positive ??81 Units or greater .......... Strong Positive Hennessy/LODE MINER BLASTING antibodies are frequently seen in patients with mixed connective tissue disease (MCTD) and are also associated with other systemic autoimmune rheumatic diseases (SARDs) such as systemic lupus erythematosus (SLE), systemic sclerosis, and myositis. Antibodies targeting the Hennessy/LODE MINER BLASTING antigenic complex also recognize Hennessy antigens, therefore, [...] developed and its performance characteristics determined by [employer]. It has not been cleared or approved [...] Greater .......... Positive Interpretive Information: Fibrillarin (U3 LODE MINER BLASTING) Antibody, IgG The presence of fibrillarin (U3-LODE MINER BLASTING) IgG antibodies in association with an SILVIA [...] a multi-ethnic cohort of SSc patients (n=98), U3-LODE MINER BLASTING antibodies detected by immunoblot had an agreement of 98.9 percent with the gold standard immunoprecipitation (IP) assay. Approximately 71 percent (5/7) of the borderline U3-LODE MINER BLASTING results with SILVIA nucleolar pattern in this cohort were IP negative. This test was developed and its performance characteristics determined by [employer]. It has not been cleared or approved by the [place] Food and Drug Administration. This test was performed in a CLIA certified laboratory and is intended for clinical purposes. Performed By: [facility] [address] [place] [address] Dye Tub Tender: Martell Anton MD, PhD CLIA Number: [id number] may Matthew SOUND RANGING CREWMEMBER LAB BLOOD ORDERABLES Final Result [facility]) [address] [place], [place] [id number] * Anti-scleroderma antibody (04/09/2024 12:55 PM EST) SCLERODERMA (SCL-70) (DAVID) ANTIBODY, IGG 0 0 - 40 AU/mL 04/12/2024 8:16 AM EST [facility]KE) Blood Venous blood specimen / Unknown Venipuncture / Unknown 04/09/2024 12:55 PM EST 04/09/2024 12:55 PM EST Narrative [facility]RA) - 04/12/2024 8:16 AM EST INTERPRETIVE INFORMATION: [...] testing for centromere, RNA polymerase III and U3-LODE MINER BLASTING, PM/Scl, or Th/To antibodies. Performed By: [facility] [address] [place] [address] Dye Tub Tender: Martell Anton MD, PhD CLIA Number: [id number] may Matthew [facility] LAB BLOOD ORDERABLES Final Result [facility] ([facility]) [address] [place] [address] * Creatinine, Plasma (04/09/2024 12:55 PM EST) Creatinine, Plasma 0.75 0.60 - 1.10 mg/dL 04/09/2024 3:08 PM EST [facility] eGFRcr 90.7 mL/min/1.7 3m*2 04/09/2024 3:08 PM EST [facility] Comment:Reported eGFRcr in m L/min/1.73m2 is based the CKD-EPI 2020 equation that does not use a race coefficient. Blood Venous blood specimen / Unknown Venipuncture / Unknown 04/09/2024 12:55 PM EST 04/09/2024 12:55 PM EST us May R Matthew SOUND RANGING CREWMEMBER LAB BLOOD ORDERABLES Final Result [facility] [address] [place] [address] * Sedimentation Rate, Automated (04/09/2024 12:55 PM EST) Sedimentation Rate 11 <30 mm/hr 2023 3:11 PM EST [facility] Blood Venous blood specimen / Unknown Venipuncture / Unknown 04/09/2024 12:55 PM EST 04/09/2024 12:55 PM EST us May R Matthew ROBERTSONN LAB BLOOD ORDERABLES Final Result Performing Organization Address City/[facility] Co de Phone Number [facility] [address] [place] [address] * (ABNORMAL) CBC and Differential (04/09/2024 12:55 PM EST) WBC Count 6.84 3.70 - 10.30 10*3/uL LAB HEMATOLOGY METHOD 04/09/2024 3:02 PM EST [facility] RBC Count 4.84 3.90 - 5.20 10*6/uL LAB HEMATOLOGY METHOD 04/09/2024 3:02 PM EST [facility] HGB 14.8 11.2 - 15.7 g/dL LAB HEMATOLOGY METHOD 04/09/2024 3:02 PM EST [facility] HCT 45.7(H) 34.0 - 45.0 % LAB HEMATOLOGY METHOD 04/09/2024 3:02 PM EST [facility] Platelet Count 247 155 - 369 10*3/uL LAB HEMATOLOGY METHOD 04/09/2024 3:02 PM EST [facility] MCV 94 79 - 98 fL LAB HEMATOLOGY METHOD 04/09/2024 3:02 PM EST [facility] MCH 30.6 26.0 - 32.0 pg LAB HEMATOLOGY METHOD 04/09/2024 3:02 PM EST [facility] MCHC 32.4 30.7 - 35.5 g/dL LAB HEMATOLOGY METHOD 04/09/2024 3:02 PM [facility] RDW 12.8 11.5 - 14.5 % LAB HEMATOLOGY METHOD 04/09/2024 3:02 PM [facility] MPV 11.3 8.8 - 12.5 fL LAB HEMATOLOGY METHOD 04/09/2024 3:02 PM [facility] nRBC 0.0 <=0.0 per 100 WBCs LAB HEMATOLOGY METHOD 04/09/2024 3:02 PM [facility] Differential Type Automated LAB HEMATOLOGY METHOD 04/09/2024 3:02 PM [facility] Neutrophils % 60 % LAB HEMATOLOGY METHOD 04/09/2024 3:02 PM [facility] Lymphocytes % 31 % LAB HEMATOLOGY METHOD 04/09/2024 3:02 PM [facility] Monocytes % 6 % LAB HEMATOLOGY METHOD 04/09/2024 3:02 PM [facility] Eosinophils % 2 % LAB HEMATOLOGY METHOD 04/09/2024 3:02 PM [facility] Basophils % 1 % LAB HEMATOLOGY METHOD 04/09/2024 3:02 PM [facility] Immature Granulocytes % 0 % LAB HEMATOLOGY METHOD 04/09/2024 3:02 PM [facility] Neutrophils Absolute 4.12 1.60 - 6.10 10*3/uL LAB HEMATOLOGY METHOD 04/09/2024 3:02 PM [facility] Lymphocytes Absolute 2.10 1.20 - 3.90 10*3/uL LAB HEMATOLOGY METHOD 04/09/2024 3:02 PM [facility] Monocytes Absolute 0.42 0.30 - 0.90 10*3/uL LAB HEMATOLOGY METHOD 04/09/2024 3:02 PM [facility] Eosinophils Absolute 0.13 0.00 - 0.50 10*3/uL LAB HEMATOLOGY METHOD 04/09/2024 3:02 PM [facility] Basophils Absolute 0.05 0.00 - 0.10 10*3/uL LAB HEMATOLOGY METHOD 04/09/2024 3:02 PM [facility] Immature Granulocytes Absolute 0.02 0.00 - 0.06 10*3/uL LAB HEMATOLOGY METHOD 04/09/2024 3:02 PM [facility] Blood Venous blood specimen / Unknown Venipuncture / Unknown 04/09/2024 12:55 PM EST 04/09/2024 12:55 PM EST Narrative [facility] - 04/09/2024 3:02 PM EST Therapeutic decision making should be based on absolute values, rather than percentages. May [facility] LAB BLOOD ORDERABLES Final Result Performing Organization Address [facility] [place] [place] [address] * C-reactive protein (04/09/2024 12:55 PM EST) Pathologist [facility] CRP, Plasma 3.2 <=8.0 mg/L 04/09/2024 3:[address] [facility] Blood Venous blood specimen / Unknown Venipuncture / Unknown 04/09/2024 12:55 PM EST 04/09/2024 12:55 PM EST Narrative [facility] - 04/09/2024 3:08 PM EST This CRP test is appropriate for assessment of infection, systemic inflammation and/or tissue injury. To assess cardiovascular disease risk order high sensitivity CRP (CRPH). May [facility] LAB BLOOD ORDERABLES Final Result Performing Organization Address [facility] [place] [address] * ANTI NUCLEAR AB (04/09/2024 12:55 PM EST) Pathologist [facility] SILVIA INTERPRETIVE COMMENT See Note 04/12/2024 8:01 PM EST [facility] ([facility]) Anti Nuc Ab Screen <1:80 <1:80 04/12/2024 8:01 PM EST [facility] ([facility]) Blood Venous blood specimen / Unknown Venipuncture / Unknown 04/09/2024 12:55 PM EST 04/09/2024 12:55 PM EST Narrative [facility] ([facility]) - 04/12/2024 8:01 PM EST Antinuclear antibodies [...] not necessarily rule out SARD. Performed By: [facility] [employer] [address] [place] [address] Dye Tub Tender: Martell Anton MD, PhD CLIA Number: [id number] may Matthew [facility] LAB BLOOD ORDERABLES Final Result [email or web address] ([facility]) [address] [place], [place] [id number] * Hepatic Function Panel (04/09/2024 12:55 PM EST) Conjugated Bilirubin, Plasma <0.2 0.0 - 0.3 mg/dL 04/09/2024 3:08 PM EST [facility] Alkaline Phosphatase, Plasma 86 46 - 142 U/L 04/09/2024 3:08 PM EST [facility] Total Bilirubin, Plasma 0.3 0.2 - 1.1 mg/dL 04/09/2024 3:08 PM EST [facility] Albumin, Plasma 4.1 3.5 - 5.2 g/dL 04/09/2024 3:08 PM EST [facility] Total Protein 6.7 6.3 - 7.9 g/dL 04/09/2024 3:08 PM EST [facility] ALT, Plasma 17 10 - 35 U/L 04/09/2024 3:08 PM EST [facility] AST, Plasma 20 10 - 35 U/L 04/09/2024 3:08 PM EST [facility] Blood Venous blood specimen / Unknown Venipuncture / Unknown 04/09/2024 12:55 PM EST 04/09/2024 12:55 PM EST May R [facility] LAB BLOOD ORDERABLES Final Result Performing Organization Address City/[facility]/ZIP Co de Phone Number [facility] [address] [place] [address] * HIV 1 & 2 Antibody/Antigen Screen (05/30/2023 1:32 PM EST) Pathologist [facility] HIV 1 & 2 Antibody/Antigen Screen Non Reactive Non Reactive 05/30/2023 3:32 PM EST [facility] Comment:Screening for HIV 1 & 2 antibodies, and P24 antigen is NONREACTIVE. No confirmatory testing is required. Blood Venous blood specimen / Unknown Venipuncture / Unknown 05/30/2023 1:32 PM EST 05/30/2023 1:34 PM EST may [facility] LAB BLOOD ORDERABLES Final Result Performing Organization Address City/[facility] Co de Phone Number [facility] [address] [place] [address] * Acute Hepatitis Panel (05/30/2023 1:32 PM EST) Pathologist [facility] Hepatitis B Surf Antigen Negative Negative 05/30/2023 4:04 PM EST [facility] Hepatitis C Antibody Negative Negative 05/30/2023 4:04 PM EST [facility] Hepatitis A Antibody IgM Negative Negative 05/30/2023 4:04 PM EST [facility] Hepatitis B Core Antibody IgM Negative Negative 05/30/2023 4:04 PM EST [facility] Blood Venous blood specimen / Unknown Venipuncture / Unknown 05/30/2023 1:32 PM EST 05/30/2023 1:34 PM EST May Matthew SOUND RANGING CREWMEMBER LAB BLOOD ORDERABLES Final Result [facility] [address] [place] [address] from Last 3 Months or Most Recently Relevant to Health Maintenance Insurance [employer] CLAIMS [facility] Care Teams Gas Torch Brazier Relationship Specialty Start Date End Date Alma Gross APRN [address] [place] [address] PCP - General 05/08/23
--- OUTSIDE RECORDS SUMMARY | 2024-04-23 07:35 | XMS_ITS | Encounter Summary ---
Author Organization [facility] Address [address] [id number] Care Team Providers Care Emergency Technician Name Role Phone Alma Gross Cathy AGRICULTURAL CHEMIST Primary Care Provider +1- [phone] Reason for Visit * Reason Comments Follow-up Encounter Details Date Type Department Care Team (Late st Contact Info) Description 06/27/2023 12:50 PM EST Office Visit [facility] Medicine Specialties [address], [address] [place] [address] Matthew, May R, AGRICULTURAL CHEMIST [address] [place] [address] High risk medication use (Primary [...] through Care Everywhere. * Sulfasalazine Oral Tablet (Uzbek) * Folic Acid Oral Tablet (Uzbek) documented in this encounter Miscellaneous Notes * Progress Notes - Matthew, May R, AGRICULTURAL CHEMIST - 06/27/2023 12:50 PM EST Images from [...] achilles and plantar fascia. Dr. Reed in [place]. Right knee mensicus tear. Currently in PT [...] No hx of alcohol abuse. 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 [place] The following portions of the chart were reviewed this encounter and updated as appropriate: Past Medical History: Diagnosis Date Achilles tendon tear Asthma Bunion Carpal tunnel syndrome COPD (chronic obstructive pulmonary disease) ([facility]) Fallen arches Gallstone Herniated cervical disc Hypertension [...] one tablet daily 49 tablet 0 Tiotropium [place] Monohydrate (Spiriva Respimat) 2.5 MCG/ACT inhaler Inhale [...] mixed mechanical/inflammatory + enthesopathy Pt denied Raynaud's [place] criteria + family hx + nail dystrophy [...] months and lab only 1 month ( [facility]) Today, I personally spent minutes on the [...] Parts of this note were dictated using [employer] voice recognition software. As a result, errors may occur. When identified, these poker dealer errors are corrected, but while every attempt [...] H Pulmonary Function Testing [address] [place] [address] 05/27/2024 9:40 AM EST Office Visit [facility] Medicine [facility] [address] [place] [address] Rupal Gonzalez APRN [address] [place] [address] 07/23/2024 3:00 PM EST Office Visit [facility] Medicine Specialties [address], [address] [place] [address] Matthew, May R, AGRICULTURAL CHEMIST [address] [place] [address] documented as of this encounter Visit Diagnoses Diagnosis High risk medication use- Primary documented in this encounter Additional Health Concerns Assessment Noted Time A fall risk assessment has been complete d for the patient 06/27/2023 12:55 PM EST A Body Mass Index follow-up plan has been documented for the patient 06/27/2023 1:50 PM EST documented as of this encounter Care Teams Emergency Technician Relationship Specialty Start Date End Date Alma Gross APRN [address] [place] [address] PCP - General 05/08/23 documented as of this encounter
--- OUTSIDE RECORDS SUMMARY | 2024-04-23 07:35 | XMS_ITS | Encounter Summary ---
Author Organization [facility] Address [address] [place] [address] Care Team Providers Care Microbiological Analyst Name Role Phone Alma Gross SHERWIN Primary Care Provider +1- [phone] Encounter Details Date Type Department Care Team [...] H Pulmonary Function Testing [address] [place] [address] 05/27/2024 9:40 AM EST Office Visit [place] [facility] Medicine Specialties [address], [address] [place] [address] Rupal Gonzalez APRN [address] [place] [address] 07/23/2024 3:00 PM EST Office Visit [place] [facility] Medicine Specialties [address], [address] [place] [address] Matthew, May R, RESEARCH CLERK [address] [place] [address] documented as of this encounter Visit Diagnoses Not on filedocumented in this encounter Additional Health Concerns Assessment Noted Time A fall risk assessment has been complete d for the patient 10/01/2023 12:11 PM EDT A Body Mass Index follow-up plan has been documented for the patient 10/01/2023 12:47 PM EDT documented as of this encounter Care Teams Microbiological Analyst Relationship Specialty Start Date End Date Alma Gross, RESEARCH CLERK [address] [place] [address] PCP - General 05/08/23 documented as of this encounter
--- OUTSIDE RECORDS SUMMARY | 2024-04-23 07:35 | XMS_ITS | Encounter Summary ---
Author Organization [facility] Address [address] [place] [address] Care Team Providers Care Washer Machine Name Role Phone Alma Gross SHERWIN Primary Care Provider +1- [phone] Encounter Details Date Type Department Care Team [...] H Pulmonary Function Testing [address] [place] [address] 05/27/2024 9:40 AM EST Office Visit [place] [facility] Medicine Specialties [address], [address] [place] [address] Rupal Gonzalez APRN [address] [place] [address] 07/23/2024 3:00 PM EST Office Visit [place] [facility] Medicine Specialties [address], [address] [place] [address] Matthew May R, SAND MOLDER [address] [place] [address] documented as of this encounter Visit Diagnoses Not on filedocumented in this encounter Additional Health Concerns Assessment Noted Time A fall risk assessment has been complete d for the patient 06/27/2023 12:55 PM EST A Body Mass Index follow-up plan has been documented for the patient 06/27/2023 1:50 PM EST documented as of this encounter Care Teams Washer Machine Relationship Specialty Start Date End Date Alma Gross, SAND MOLDER [address] [place] [address] PCP - General 05/08/23 documented as of this encounter
--- OUTSIDE RECORDS SUMMARY | 2024-04-23 07:35 | XMS_ITS | Encounter Summary ---
Author Organization Healthcare Address [address] [place] [address] Care Team Providers Care Spar Machine Operator Helper Name Role Phone Alma Gross Cathy COURTNEY Primary Care Provider +1- [phone] Encounter Details Date Type Department Care Team (Latest Contact Info) Description 05/30/2023 1:36 PM EST - 05/30/2023 11:59 PM EST Hospital Encounter [facility] [address], [address] [place] [address] Polyarthralgia Discharge Disposition: Home or Self Care [...] one tablet daily 49 tablet 05/30/2023 Tiotropium [place] Monohydrate (Spiriva Respimat) 2.5 MCG/ACT inhaler Inhale 2 puffs 1 (one) time each day. 4 documented as of this encounter Plan of Treatment Upcoming Encounters Date Type Department Care Team (Late st Contact Info) Description 05/19/2024 10:00 AM EST Appointment PAV H Pulmonary Function Testing [address] [place] [address] 05/27/2024 9:40 AM EST Office Visit [facility] Medicine [facility]ties [address], [address] [place] [address] Rupal Gonzalez, SHERWIN [address] [place] [address] 07/23/2024 3:00 PM EST Office Visit [facility] [address], [address] [place] [address] Matthew, May R, ARCHIVES SPECIALIST [address] [place] [address] documented as of this encounter [...] on 05/30/2023 2:52 PM May R Matthew ARCHIVES SPECIALIST IMG XR PROCEDURES Final Res ult [...] on 05/30/2023 2:52 PM May R Matthew ARCHIVES SPECIALIST IMG XR PROCEDURES Final Res ult [...] 05/30/2023 2:52 PM us May R Matthew ARCHIVES SPECIALIST IMG XR PROCEDURES Final Res ult [...] on 05/30/2023 2:52 PM May R Matthew ARCHIVES SPECIALIST IMG XR PROCEDURES Final Res ult [...] documented as of this encounter Care Teams Spar Machine Operator Helper Relationship Specialty Start Date End Date Alma Gross APRN [address] [place] [address] PCP - General 05/08/23 documented as of this encounter
--- OUTSIDE RECORDS SUMMARY | 2024-04-23 07:35 | XMS_ITS | Encounter Summary ---
Author Organization [facility] Address [address] [id number] Care Team Providers Care Courtesy Van Driver Name Role Phone Alma Gross SHERWIN Primary Care Provider +1- [phone] Encounter Details Date Type Department Care Team [...] H Pulmonary Function Testing [address] [place] [address] 05/27/2024 9:40 AM EST Office Visit [facility] Medicine Specialties [address], [address] [place] [address] Rupal Gonzalez APRN [address] [place] [address] 07/23/2024 3:00 PM EST Office Visit [facility] Medicine Specialties [address], [address] [place] [address] Matthew, May R, CLINICAL TRAINING COORDINATOR [address] [place] [address] documented as of this encounter Visit Diagnoses Not on filedocumented in this encounter Additional Health Concerns Assessment Noted Time A fall risk assessment has been complete d for the patient 05/30/2023 12:14 PM EST A Body Mass Index follow-up plan has been documented for the patient 05/30/2023 1:11 PM EST documented as of this encounter Care Teams Courtesy Van Driver Relationship Specialty Start Date End Date Alma Gross APRN [address] [place] [address] PCP - General 05/08/23 documented as of this encounter
--- OUTSIDE RECORDS SUMMARY | 2024-04-23 07:35 | XMS_ITS | Encounter Summary ---
Author Organization Healthcare Address [address] [place] [address] Care Team Providers Care Rush Seater Name Role Phone Polly Grossninaima Morgan APRN Primary Care Provider +1- [phone] Encounter Details Date Type Department Care Team (Latest Contact Info) Description 04/09/2024 1:01 PM EST - 04/09/2024 11:59 PM EST Hospital Encounter [facility] [address], [address]st [place] [address] Shortness of breath; Chronic obstructive pulmonary disease, [...] H Pulmonary Function Testing [address] [place] [address] 05/27/2024 9:40 AM EST Office Visit [facility] Medicine Specialties [address], [address] [place] [address] Rupal Gonzalez S, GLASS WASHER AND CARRIER [address] [place] [address] 07/23/2024 3:00 PM EST Office Visit [facility] Medicine Specialties [address], [address] [place] [address] Cristel Castro R, GLASS WASHER AND CARRIER [address] [place] [address] documented as of this encounter Procedures Procedure Name Priority Date/Time Associated Diagnosis Comments XR SHOULDER RIGHT 2+ VIEWS Routine 04/09/2024 2:00 PM EST Acute pain of right shoulder XR CHEST 2 VIEWS Routine 04/09/2024 2:00 PM EST Shortness of breath Chronic obstructive pulmonary disease, unspecified COPD type (CMS/[facility]) documented in this encounter Results * XR [...] on 04/09/2024 2:24 PM may R Matthew GLASS WASHER AND CARRIER IMG XR PROCEDURES Final Res ult * [...] MD on 04/09/2024 2:12 PM May Matthew GLASS WASHER AND CARRIER IMG XR PROCEDURES Final Res ult documented [...] documented as of this encounter Care Teams Rush Seater Relationship Specialty Start Date End Date Alma Gross APRN [address] [place] [address] PCP - General 05/08/23 documented as of this encounter
--- OUTSIDE RECORDS SUMMARY | 2024-04-23 07:35 | XMS_ITS | Encounter Summary ---
Author Organization [facility] Address [address] [place] [address] Care Team Providers Care Marker Hand Name Role Phone Alma Gross SHERWIN Primary Care Provider +1- [phone] Encounter Details Date Type Department Care Team [...] H Pulmonary Function Testing [address] [place] [address] 05/27/2024 9:40 AM EST Office Visit [facility] [address], [address] [place] [address] Rupal Gonzalez APRN [address] [place] [address] 07/23/2024 3:00 PM EST Office Visit [facility] [address], [address] [place] [address] Matthew, May R, MAINSPRING FABRICATION SUPERVISOR [address] [place] [address] documented as of this encounter Visit Diagnoses Not on filedocumented in this encounter Additional Health Concerns Assessment Noted Time A fall risk assessment has been complete d for the patient 10/01/2023 12:11 PM EDT A Body Mass Index follow-up plan has been documented for the patient 10/01/2023 12:47 PM EDT documented as of this encounter Care Teams Marker Hand Relationship Specialty Start Date End Date Alma Gross, MAINSPRING FABRICATION SUPERVISOR [address] [place] [address] PCP - General 05/08/23 documented as of this encounter
--- OUTSIDE RECORDS SUMMARY | 2024-04-23 07:36 | XMS_ITS | Encounter Summary ---
Author Organization [facility] Address [address] [place] [address] Care Team Providers Care Skilled Laborer Name Role Phone Alma Gross APRN Primary Care Provider +1- [phone] Reason for Visit * Reason Comments Consult * Consultation (Routine) - Closed Specialty Diagnoses / Procedures Referred By Joyce t Referred To Contact Rheumatology Diagnoses Pain in unspecified joint Alma Gross APRN [address] [place] [address] Phone: tel: fax: Referral ID Status Reason Start Date Expiration Date V isits Requested Visits Authorized [id number] Closed Specialty Services Required 04/25/2023 10/24/2024 1 1 Encounter Details Date Type Department Care Team (Late st Contact Info) Description 05/30/2023 11:50 AM EST [facility] [address], [address] [place] [address] Matthew, May R, SUCKER MACHINE OPERATOR [address] [place] [address] Polyarthralgia (Primary Dx); Pain in [...] achilles and plantar fascia. Dr. Reed in [place]. Right knee mensicus tear. Currently in PT [...] No hx of alcohol abuse. 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 Tiotropium [place] Monohydrate (Spiriva Respimat) 2.5 MCG/ACT inhaler Inhale [...] Parts of this note were dictated using Wikirin Direct voice recognition software. As a result, errors may occur. When identified, these photographic double errors are corrected, but while every attempt [...] H Pulmonary Function Testing [address] [place] [address] 05/27/2024 9:40 AM EST Office Visit [facility] Medicine Specialties [address], [address] [place] [address] Rupal Gonzalez S, SUCKER MACHINE OPERATOR [address] [place] [address] 07/23/2024 3:00 PM EST Office Visit [facility] Medicine Specialties [address], [address] [place] [address] MatthewMay, [address] [place] [address] documented as of this encounter Results * [...] MD on 05/30/2023 2:52 PM May Matthew SUCKER MACHINE OPERATOR IMG XR PROCEDURES Final Res [...] MD on 05/30/2023 2:52 PM may Matthew SUCKER MACHINE OPERATOR IMG XR PROCEDURES Final Res ult * Quantiferon TB Gold Plus (05/30/2023 1:32 PM EST) Pathologist [facility] Quantiferon TB Gold Plus Result Negative Negative 05/31/2023 5:29 PM EST [facility] TB Nill Value 0.0245 IU/mL 05/31/2023 5:29 PM EST HEALTHCARE LAB TB Antigen 1 0.0915 IU/mL 05/31/2023 5:29 PM EST [facility] TB Antigen 2 0.1055 IU/mL 05/31/2023 5:29 PM EST [facility] TB Mitogen 9.9755 IU/mL 05/31/2023 5:29 PM EST [facility] Blood Venous blood specimen / Unknown Venipuncture / Unknown 05/30/2023 1:32 PM EST 05/30/2023 1:34 PM EST May [facility] LAB BLOOD ORDERABLES Final Result Performing Organization Address City/[facility] Co de Phone Number [facility] [address] [place] [address] * HIV 1 & 2 Antibody/Antigen Screen (05/30/2023 1:32 PM EST) [facility] HIV 1 & 2 Antibody/Antigen Screen Non Reactive Non Reactive 05/30/2023 3:32 PM EST [facility] Comment:Screening for HIV 1 & 2 antibodies, and P24 antigen is NONREACTIVE. No confirmatory testing is required. Blood Venous blood specimen / Unknown Venipuncture / Unknown 05/30/2023 1:32 PM EST 05/30/2023 1:34 PM EST May R [facility] LAB BLOOD ORDERABLES Final Result [facility] [address] [place] [address] * Acute Hepatitis Panel (05/30/2023 1:32 PM EST) [facility] Hepatitis B Surf Antigen Negative Negative 05/30/2023 4:04 PM EST [facility] Hepatitis C Antibody Negative Negative 05/30/2023 4:04 PM EST [facility] Hepatitis A Antibody IgM Negative Negative 05/30/2023 4:04 PM EST [facility] Hepatitis B Core Antibody IgM Negative Negative 05/30/2023 4:04 PM EST [facility] Blood Venous blood specimen / Unknown Venipuncture / Unknown 05/30/2023 1:32 PM EST 05/30/2023 1:34 PM EST May Matthew [facility] LAB BLOOD ORDERABLES Final Result Performing Organization Address City/[facility] Co de Phone Number [facility] [address] [place] [address] * Hepatic Function Panel (05/30/2023 1:32 PM EST) Conjugated Bilirubin, Plasma <0.2 0.0 - 0.3 mg/dL 05/30/2023 3:26 PM EST [facility] Alkaline Phosphatase, Plasma 83 46 - 142 U/L 05/30/2023 3:26 PM EST [facility] Total Bilirubin, Plasma 0.2 0.2 - 1.1 mg/dL 05/30/2023 3:26 PM EST [facility] Albumin, Plasma 4.2 3.5 - 5.2 g/dL 05/30/2023 3:26 PM EST [facility] Total Protein 6.9 6.3 - 7.9 g/dL 05/30/2023 3:26 PM EST [facility] ALT, Plasma 13 10 - 35 U/L 05/30/2023 3:26 PM EST [facility] AST, Plasma 19 10 - 35 U/L 05/30/2023 3:26 PM EST [facility] Blood Venous blood specimen / Unknown Venipuncture / Unknown 05/30/2023 1:32 PM EST 05/30/2023 1:34 PM EST may Matthew [facility] LAB BLOOD ORDERABLES Final Result Performing Organization Address City/[facility] Co de Phone Number [facility] [address] [place] [address] * Creatinine, Plasma (05/30/2023 1:32 PM EST) Creatinine, Plasma 0.71 0.60 - 1.10 mg/dL 05/30/2023 3:26 PM EST [facility] eGFRcr 97.5 mL/min/1.7 3m*2 05/30/2023 3:26 PM EST [facility] Comment:Reported eGFRcr in m L/min/1.73m2 is based the CKD-EPI 2020 equation that does not use a race coefficient. Blood Venous blood specimen / Unknown Venipuncture / Unknown 05/30/2023 1:32 PM EST 05/30/2023 1:34 PM EST May R Matthew SUCKER MACHINE OPERATOR LAB BLOOD ORDERABLES Final Result [facility] [address] [id number] * CBC and Differential (05/30/2023 1:32 PM EST) WBC Count 6.85 3.70 - 10.30 10*3/uL LAB HEMATOLOGY METHOD 05/30/2023 3:17 PM EST [facility] RBC Count 4.43 3.90 - 5.20 10*6/uL LAB HEMATOLOGY METHOD 05/30/2023 3:17 PM EST [facility] HGB 13.6 11.2 - 15.7 g/dL LAB HEMATOLOGY METHOD 05/30/2023 3:17 PM EST [facility] HCT 42.6 34.0 - 45.0 % LAB HEMATOLOGY METHOD 05/30/2023 3:17 PM EST [facility] Platelet Count 237 155 - 369 10*3/uL LAB HEMATOLOGY METHOD 05/30/2023 3:17 PM EST [facility] MCV 96 79 - 98 fL LAB HEMATOLOGY METHOD 05/30/2023 3:17 PM EST [facility] MCH 30.7 26.0 - 32.0 pg LAB HEMATOLOGY METHOD 05/30/2023 3:17 PM EST [facility] MCHC 31.9 30.7 - 35.5 g/dL LAB HEMATOLOGY METHOD 05/30/2023 3:17 PM EST [facility] RDW 13.6 11.5 - 14.5 % LAB HEMATOLOGY METHOD 05/30/2023 3:17 PM EST [facility] MPV 11.7 8.8 - 12.5 fL LAB HEMATOLOGY METHOD 05/30/2023 3:17 PM EST [facility] nRBC 0.0 <=0.0 per 100 WBCs LAB HEMATOLOGY METHOD 05/30/2023 3:17 PM EST [facility] Differential Type Automated LAB HEMATOLOGY METHOD 05/30/2023 3:17 PM EST [facility] Neutrophils % 61.0 % LAB HEMATOLOGY METHOD 05/30/2023 3:17 PM EST [facility] Lymphocytes % 29.0 % LAB HEMATOLOGY METHOD 05/30/2023 3:17 PM EST [facility] Monocytes % 8.0 % LAB HEMATOLOGY METHOD 05/30/2023 3:17 PM EST [facility] Eosinophils % 2.0 % LAB HEMATOLOGY METHOD 05/30/2023 3:17 PM EST [facility] Basophils % 0.0 % LAB HEMATOLOGY METHOD 05/30/2023 3:17 PM EST [facility] Immature Granulocytes % 0.0 % LAB HEMATOLOGY METHOD 05/30/2023 3:17 PM EST [facility] Neutrophils Absolute 4.13 1.60 - 6.10 10*3/uL LAB HEMATOLOGY METHOD 05/30/2023 3:17 PM EST [facility] Lymphocytes Absolute 1.98 1.20 - 3.90 10*3/uL LAB HEMATOLOGY METHOD 05/30/2023 3:17 PM EST [facility] Monocytes Absolute 0.56 0.30 - 0.90 10*3/uL LAB HEMATOLOGY METHOD 05/30/2023 3:17 PM EST [facility] Eosinophils Absolute 0.14 0.00 - 0.50 10*3/uL LAB HEMATOLOGY METHOD 05/30/2023 3:17 PM EST [facility] Basophils Absolute 0.03 0.00 - 0.10 10*3/uL LAB HEMATOLOGY METHOD 05/30/2023 3:17 PM EST [facility] Immature Granulocytes Absolute 0.01 0.00 - 0.06 10*3/uL LAB HEMATOLOGY METHOD 05/30/2023 3:17 PM EST [facility] Blood Venous blood specimen / Unknown Venipuncture / Unknown 05/30/2023 1:32 PM EST 05/30/2023 1:34 PM EST [facility] - 05/30/2023 3:17 PM EST Therapeutic decision making should be based on absolute values, rather than percentages. may Matthew SUCKER MACHINE OPERATOR LAB BLOOD ORDERABLES Final Result [facility] [address] [place] [address] * (ABNORMAL) Sedimentation Rate, Automated (05/30/2023 1:32 PM EST) Pathologist [facility] Sedimentation Rate 30(H) <30 mm/hr 2023 3:32 PM EST [facility] Blood Venous blood specimen / Unknown Venipuncture / Unknown 05/30/2023 1:32 PM EST 05/30/2023 1:34 PM EST [facility] Final Result Performing Organization Address City/[facility]/ZIP Co de Phone Number [facility] [address] [place] [address] * Rheumatoid Factor, Plasma (05/30/2023 1:32 PM EST) Pathologist [facility] Rheumatoid Factor, Plasma 11 <14 IU/mL 05/30/2023 3:26 PM EST [facility] Blood Venous blood specimen / Unknown Venipuncture / Unknown 05/30/2023 1:32 PM EST 05/30/2023 1:34 PM EST May R Matthew SUCKER MACHINE OPERATOR LAB BLOOD ORDERABLES Final Result Performing Organization Address [facility] Co de Phone Number [facility] [address] [place] [address] * Cyclic Citrul Peptide Antibody IgG (05/30/2023 1:32 PM EST) Pathologist [facility] Cyclic Citrul Peptide Antibody IgG <5.0 <=5.0 U/mL 05/30/2023 4:08 PM EST [facility] Blood Venous blood specimen / Unknown Venipuncture / Unknown 05/30/2023 1:32 PM EST 05/30/2023 1:34 PM EST [facility] Final Result Performing Organization Address City/[facility]/ZIP Co de Phone Number [facility] [address] [place] [address] * C-Reactive Protein, Plasma (05/30/2023 1:32 PM EST) Pathologist [facility] CRP, Plasma 5.5 <=8.0 mg/L 05/30/2023 3:26 PM EST [facility] Blood Venous blood specimen / Unknown Venipuncture / Unknown 05/30/2023 1:32 PM EST 05/30/2023 1:34 PM EST Narrative [facility] - 05/30/2023 3:26 PM EST This CRP test is appropriate for assessment of infection, systemic inflammation and/or tissue injury. To assess cardiovascular disease risk order high sensitivity CRP (CRPH). may Matthew SUCKER MACHINE OPERATOR LAB BLOOD ORDERABLES Final Result Performing Organization Address City/State/[facility] Co de Phone Number [facility]ALTH[facility]ARE [facility] [address] [place] [address] documented in this encounter Visit Diagnoses Diagnosis [...] documented as of this encounter Care Teams Skilled Laborer Relationship Specialty Start Date End Date Alma Gross APRN [address] [place] [address] PCP - General 05/08/23 documented as of this encounter
--- OUTSIDE RECORDS SUMMARY | 2024-04-23 07:36 | XMS_ITS | Encounter Summary ---
Author Organization [facility] Address [address] [id number] Care Team Providers Care Escapement Matcher Name Role Phone Alma Gross SHERWIN Primary Care Provider +1- [phone] Encounter Details Date Type Department Care Team [...] Function Testing [address] [place] [address] 05/27/2024 9:40 AM EST Office Visit [facility] Medicine Specialties [address], [address] [place] [address] Rupal Gonzalez APRN [address] [place] [address] 07/23/2024 3:00 PM EST Office Visit [facility] Medicine Specialties [address], [address] [place] [address] Matthew, May R, COLOR WORKER [address] [place] [address] documented as of this encounter Visit Diagnoses Not on filedocumented in this encounter Additional Health Concerns Assessment Noted Time A fall risk assessment has been complete d for the patient 05/30/2023 12:14 PM EST A Body Mass Index follow-up plan has been documented for the patient 05/30/2023 1:11 PM EST documented as of this encounter Care Teams Escapement Matcher Relationship Specialty Start Date End Date Alma Gross APRN [address] [place] [address] PCP - General 05/08/23 documented as of this encounter
== END ==
LOC: SL 07:34
PROVIDERS: PCP Nurse Practitioner Family; Visit Provider Nurse Practitioner Family
DX: G47.34 Idiopathic sleep related nonobstructive alveolar hypoventilation (principal)
CPT/HCPCS: G0399

== ENCOUNTER 2024-05-02 15:12 | Outpatient (CLI) | payer OTHER, SELFPAY ==
--- NOTE | 2024-05-02 15:12 | CT_ITS ---
FINAL REPORT TECHNIQUE: Axial CT images were performed from the lung apices through the upper abdomen. Coronal reformats were submitted. This study was performed with techniques to keep radiation doses as low as reasonably achievable (ALARA). Individualized dose reduction techniques using automated exposure control or adjustment of mA and/or kV according to the patient's size were employed. CLINICAL HISTORY: Shortness of breath, emphysema FINDINGS: There is no axillary adenopathy. There is no hilar or mediastinal mass or adenopathy. Heart size is normal. There is no pericardial or pleural effusion. There is mild emphysema and mild pulmonary scarring. Several calcified granulomas are identified. Limited images of the upper abdomen reveal a probable small cyst in the right liver dome. There is bilateral adrenal gland enlargement, favor adenomas. Moderate left renal scarring is identified. IMPRESSION: Mild emphysema and pulmonary scarring. Reviewed, Interpreted and Dictated by Matt Caal III, MD Transcribed by Cristiana Ewing Authenticated and [facility]
== END 2024-05-02 23:59 | disposition home or self-care (01) ==
LOC: RAD 15:12
PROVIDERS: PCP Nurse Practitioner Family; Visit Provider Nurse Practitioner Family
DX: R06.09 Other forms of dyspnea (principal); J43.9 Emphysema, unspecified; G47.34 Idiopathic sleep related nonobstructive alveolar hypoventilation; R76.8 Other specified abnormal immunological findings in serum
CPT/HCPCS: 71250

== ENCOUNTER 2024-05-03 12:40 | Emergency (ER) | payer OTHER, SELFPAY ==
[2024-05-03 12:42] VITALS: BP 185/119; PULSE 116; RESP 20; TEMP 36.7; O2SAT 96; BMI 32.5
[2024-05-03 13:00] VITALS: BP 156/112; PULSE 110; RESP 18; O2SAT 93
--- NOTE | 2024-05-03 13:14 | ED_ITS ---
<Statement entered by Eliana Oliver DO - 05/03/24 15:45> I was consulted by the WAYNE, and we discussed the complexity of the problems being addressed. I approved the treatment and management plan for this patient's care in the emergency department, thus performing a substantive portion of the medical decision making. Eliana Oliver DO Discharge Plan Disposition Patient Disposition: Home, Self-Care Condition: Fair Prescriptions Prescriptions: New ketorolac 10 mg tablet 10 mg PO Q8H PRN (Reason: pain) 7 Days Qty: 20 0RF baclofen 10 mg tablet 10 mg PO BID 7 Days Qty: 14 0RF No Action metoclopramide HCl 10 mg tablet 10 mg PO .q8 PRN trazodone 50 mg tablet 50 mg PO PRN diazepam 2 mg tablet 2 mg PO PRN fluticasone propionate 50 mcg/actuation spray,suspension 2 spray intranasal DAILY PRN Patient Comments: instill 1 SPRAY IN EACH NOSTRIL ONCE DAILY diclofenac sodium 50 mg tablet,delayed release (DR/EC) 50 mg PO TID Patient Comments: TAKE ONE TABLET BY MOUTH THREE TIMES DAILY --TAKE WITH FOOD-- albuterol sulfate 90 mcg/actuation HFA aerosol inhaler 2 puff inhalation Q4-6H PRN Patient Comments: INHALE TWO PUFFS BY MOUTH EVERY 4 HOURS NEEDED --SHAKE WELL BEFORE USE-- famotidine 20 mg tablet 20 mg PO BID Patient Comments: TAKE ONE TABLET BY MOUTH TWICE DAILY prednisone 5 mg tablet PO Patient Comments: TAKE THREE TABLETS BY MOUTH EVERY DAY FOR 1 WEEK, THEN TAKE TWO TABLETS EVERY DAY FOR 1 WEEK THEN TAKE 1 TABLET DAILY UNTIL ALL TAKEN --TAKE WITH FOOD-- cyclobenzaprine 5 mg tablet 5 mg PO HS PRN (Reason: muscle spasm) 30 Days Qty: 30 2RF tramadol 50 mg tablet 50 mg PO Q6H PRN (Reason: pain) Qty: 30 0RF ondansetron HCl 4 mg tablet See Rx Instructions .ROUTE .COMPLEX Qty: 30 0RF Dose Instruction: TAKE ONE TABLET BY MOUTH EVERY 6 HOURS NEEDED FOR NAUSEA AND VOMITING Rx Instructions: TAKE ONE TABLET BY MOUTH EVERY 6 HOURS NEEDED FOR NAUSEA AND VOMITING Trelegy Ellipta 200-62.5-25 mcg blister with device See Rx Instructions .ROUTE .COMPLEX Qty: 60 2RF Dose Instruction: INHALE 1 PUFF BY MOUTH EVERY DAY --RINSE MOUTH AFTER USE-- Rx Instructions: INHALE 1 PUFF BY MOUTH EVERY DAY --RINSE MOUTH AFTER USE-- lisinopril-hydrochlorothiazide 20-12.5 mg tablet See Rx Instructions .ROUTE .COMPLEX Qty: 90 2RF Dose Instruction: TAKE ONE TABLET BY MOUTH EVERY DAY FOR HIGH BLOOD PRESSURE Rx Instructions: TAKE ONE TABLET BY MOUTH EVERY DAY FOR HIGH BLOOD PRESSURE albuterol sulfate 1.25 mg/3 mL solution for nebulization See Rx Instructions .ROUTE .COMPLEX Qty: 90 2RF Dose Instruction: INHALE THE CONTENTS OF 1 VIAL VIA NEBULIZER EVERY 8 HOURS NEEDED Rx Instructions: INHALE THE CONTENTS OF 1 VIAL VIA NEBULIZER EVERY 8 HOURS NEEDED meclizine 25 mg tablet 25 mg PO TID PRN (Reason: dizziness) Qty: 90 0RF ipratropium-albuterol 0.5 mg-3 mg(2.5 mg base)/3 mL solution for nebulization 3 ml inhalation QID PRN (Reason: shortness of breath or wheezing) Qty: 180 0RF cetirizine 10 mg tablet 10 mg PO DAILY PRN (Reason: Allergy symptoms) Referrals Follow up/Referrals: Alma Gross APRN [Primary Care Provider] - See instructions Clinical Impressions Clinical Impression: Torticollis, acute Instructions Patient Instructions: DI for Neck Sprain, DI for Neck Pain Print Language Print Language: Azeri Discharge ED Provider: Eliana Oliver General Adult HPI General Chief complaint: Neck Pain/Injury Stated complaint: severe pain in neck and skull Time Seen by Provider: 05/03/24 12:58 Mode of Arrival: Ambulatory Source of Information: Patient Limitations: No Limitations Description of Symptoms (Recalled from ER Triage Doc. by RN): pt has pain in neck that goes up into head has hx of ruptured disc, started on sunday and has taken flexerila dn tramadol since yesterday, currently on steroids for RA issues History of Present Illness HPI narrative: This is a 59-year-old female who presents to the ED today for complaint of neck pain that is moving up towards the back of her head causing headache. She does have a history of ruptured disc in her neck that she has had surgery on and she has a plate in her neck. She has had no additional injury to her neck she just has been having more pain since Sunday. She has taken her home Flexeril and tramadol since then but this has not improved the pain at all. She is currently on steroids for her psoriatic arthritis from her property condition assessor. Patient does also have history of her notes, vertigo, emphysema, wears overnight oxygen, has vertigo, chronic back pain and is doing pulmonary rehab as well. 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 Related Data Home Medications ?Medication ?Instructions ?Recorded ?Confirmed diazepam 2 mg tablet 2 mg PO PRN 01/24/23 04/29/24 trazodone 50 mg tablet 50 mg PO PRN 01/24/23 04/29/24 fluticasone propionate 50 2 spray intranasal DAILY PRN 04/17/23 04/29/24 mcg/actuation nasal spray,suspension cetirizine 10 mg tablet 10 mg PO DAILY PRN Allergy symptoms 06/08/23 04/29/24 metoclopramide HCl 10 mg tablet 10 mg PO .q8 PRN 06/20/23 04/29/24 albuterol sulfate 90 mcg/actuation 2 puff inhalation Q4-6H PRN 02/26/24 04/29/24 aerosol inhaler diclofenac sodium 50 mg 50 mg PO TID 02/26/24 04/29/24 tablet,delayed release famotidine 20 mg tablet 20 mg PO BID 04/14/24 04/29/24 prednisone 5 mg tablet mg PO 04/14/24 04/29/24 Previous Rx's ?Medication ?Instructions ?Recorded cyclobenzaprine 5 mg tablet 5 mg PO HS PRN muscle spasm 30 08/21/23 days #30 tabs tramadol 50 mg tablet 50 mg PO Q6H PRN pain #30 tabs 09/14/23 ondansetron HCl 4 mg tablet See Rx Instructions .Route 11/07/23 .COMPLEX #30 tabs fluticasone fur. 200 mcg-umeclid See Rx Instructions .Route 02/04/24 62.5 mcg-vilant 25 mcg .COMPLEX #60 blisters inhalat.powder (Trelegy Ellipta) albuterol sulfate 1.25 mg/3 mL See Rx Instructions .Route 02/22/24 solution for nebulization .COMPLEX #90 mL lisinopril 20 See Rx Instructions .Route 02/22/24 mg-hydrochlorothiazide 12.5 mg .COMPLEX #90 tabs tablet meclizine 25 mg tablet 25 mg PO TID PRN dizziness #90 tabs 03/07/24 ipratropium 0.5 mg-albuterol 3 mg 3 ml inhalation QID PRN shortness 04/04/24 (2.5 mg base)/3 mL nebulization of breath or wheezing #180 mL soln baclofen 10 mg tablet 10 mg PO BID 7 days #14 tabs 05/03/24 ketorolac 10 mg tablet 10 mg PO Q8H PRN pain 7 days #20 05/03/24 tabs Allergies Allergy/AdvReac Type Severity Reaction Status Date / Time No Known Allergies Allergy Verified 04/29/24 11:53 [facility] Disclaimer: The information contained in this section may have been updated after the patient was seen, as this information can be updated by other users. Medical History (Updated 05/03/24 @ 14:37 by Jelena Driscoll (ED), HIMS CLERK) Dizziness Fatigue Grade I diastolic dysfunction Achilles rupture, right Herniated disc Allergic rhinitis Arthritis COPD (chronic obstructive pulmonary disease) Asthma, severe persistent Hypertension Surgical History History of carpal tunnel release Hx of cholecystectomy History of tubal ligation Family History Father Cancer Mother Hypertension Cancer Son Asthma Social History Smoking Status: Current every day smoker tobacco type: cigarettes packs per day: 1 second hand exposure: Yes alcohol intake: never substance use type: other current occupational status: other Travel in the last 8 weeks: None household members: other housing: house caffeine: Yes Have you lived/traveled outside [place] in past 30 days?: No Contact w/someone who lives/traveled outside [place] past 30 days?: No Exposure to someone with infectious disease in past 14 days?: No Do you have a fever (greater than 100.4 F or 38 C)?: No Have you tested positive for COVID-19: No Exposed to someone with COVID-19 in past 14 days?: No Do you have a sore throat?: No Do you have a cough?: No Do you have any weakness?: No Do you have any diarrhea?: No Are you experiencing any unusual bleeding?: No Do you have any muscle aches/pain?: No Do you have any abdominal pain?: No Are you experiencing loss of taste or smell?: No Other Medical History Have you received the Flu Vaccine for this season: Yes Have you received the Pneumonia Vaccine: Yes ROS Obtained: Yes Systems reviewed as appropriate & no additional complaints except as documented Constitutional Constitutional: Reports as per HPI Physical Exam General General appearance: alert and in distress Comment: Obvious neck pain Head Head exam: atraumatic and normocephalic Eye Eye exam: Present PERRL and EOMI ENT ENT exam: Present mucous membranes moist Neck Neck exam: Present tenderness and other Expanded Neck Exam Neck exam focused ED: Present tenderness (other) (Decreased range of motion of neck due to pain) Respiratory Respiratory exam: Present wheezes Cardiovascular Cardiovascular exam: Present regular rate, normal rhythm, normal heart sounds, +S1 and +S2 Extremities Exam Extremities exam: Present normal inspection and full ROM Neurological Exam Neurological exam: Present alert and oriented X3 Skin Skin exam: Present warm, dry and intact Medical Decision Making Medical Records Screening: Per USPSTF and CDC recommendations, given the prevalence of disease in our region, it is our hospital?s policy to screen for HIV and viral Hepatitis for all patients aged 18 and over and those with ongoing risk factors. [place] Inquiry Pt receiving controlled substance: No [place] was queried for this patient: No Vital Signs: 05/03/24 12:42 05/03/24 13:00 05/03/24 14:26 Temperature 98.0 F Temperature Source Oral Pulse Rate 110 H 85 Pulse Rate [Left Radial] 116 H Respiratory Rate 20 18 Blood Pressure 156/112 H 152/92 H Blood Pressure [Right Arm] 185/119 H Blood Pressure Mean 129 Blood Pressure Mean [Right Arm] 141 Blood Pressure Source Blood Pressure Position 02 Sat by Pulse Oximetry 96 93 L 95 Oxygen Delivery Method Room Air Room Air 05/03/24 14:42 Temperature 98.0 F Temperature Source Oral Pulse Rate 88 Pulse Rate [Left Radial] Respiratory Rate 18 Blood Pressure 152/88 H Blood Pressure [Right Arm] Blood Pressure Mean Blood Pressure Mean [Right Arm] Blood Pressure Source Automatic Cuff Blood Pressure Position Sitting 02 Sat by Pulse Oximetry Oxygen Delivery Method Room Air Lab Data Lab Results 05/03/24 13:08: WBC 9.4, RBC 4.80, Hgb 15.1, Hct 44.7, MCV 93.2, MCH 31.4 H, MCHC 33.6, RDW 13.4, Plt Count 249, MPV 8.5, Neut % (Auto) 77.0, Lymph % (Auto) 14.9, [place] % (Auto) 5.7, Eos % (Auto) 1.7, Baso % (Auto) 0.6, Neut # (Auto) 7.3, Lymph # (Auto) 1.4, [place] # (Auto) 0.5, Eos # (Auto) 0.2, Baso # (Auto) 0.1, Sodium 139, Potassium 3.9, Chloride 106, Carbon Dioxide 31 H, Anion Gap 5.9, BUN 9, Creatinine 0.80, Estimated Creat Clear 93, Estimated GFR 73, Est GFR ( Amer) 88, Glucose 86, Calcium 9.0, Total Bilirubin 0.6, AST 28, ALT 22, Alkaline Phosphatase 81, Total Protein 6.6, Albumin 3.9, Globulin 2.7, Albumin/Globulin Ratio 1.4 05/03/24 13:08 05/03/24 13:08 Orders (Tests/Meds): ED MEDICATIONS Discontinued Medications Generic Name Dose Route Start Last Admin Trade Name Freq PRN Reason Stop Dose Admin Sodium Chloride 500 mls @ 999 mls/hr 05/03/24 13:15 05/03/24 13:23 Sod Chlor 0.9% 1000ml Bag IV 05/03/24 13:45 999 mls/hr .Q31M ONE Administration Ketorolac Tromethamine 30 mg 05/03/24 13:08 05/03/24 13:23 Ketorolac 30mg/Ml Vial IV 05/03/24 13:09 30 mg ONCE ONE Administration Ondansetron HCl 4 mg 05/03/24 13:09 05/03/24 13:23 Ondansetron 4mg/2ml Vial IV 05/03/24 13:10 4 mg ONCE ONE Administration Orphenadrine Citrate 60 mg 05/03/24 13:08 05/03/24 13:23 Orphenadrine Citrate 60mg/2ml Vial IV 05/03/24 13:09 60 mg ONCE ONE Administration ORDERS Category Date Time Status CBC w/Auto Diff [Complete Blood Count Auto Diff] Stat Lab 05/03/24 13:08 Completed Comprehensive Metabolic Panel Stat Lab 05/03/24 13:08 Completed Medical Decision Narrative: Insert review patient is a 59-year-old female presenting to the emergency department for evaluation of neck pain since Sunday. Patient has not had an additional injury but she has history of herniated disc in her neck that she has plates in. Patient has history of psoriatic arthritis, renounce, wears home O2 from COPD, vertigo and chronic back pain. patient is hemodynamically stable and nontoxic-appearing upon arrival, afebrile. Differential diagnosis includes torticollis, cervicalgia. Workup will be conducted with hematologic labs. Initial inventions include analgesics. Initial workup reviewed by me hematologic labs are remarkable for nothing acute. Patient's pain improved by Toradol, Norflex. Patient will be discharged with medications that she was given here in the ED. She will follow-up with her PCP for further imaging if needed. Critical Care Critical Care Time Critical Care Time: No
[2024-05-03] MEDS: KETOROLAC 30MG/ML VIAL 30 MG IV (13:23)
[2024-05-03] MEDS: 0.9 % SODIUM CHLORIDE 1000ML 500 ML 999 ML IV (13:23)
[2024-05-03] MEDS: ONDANSETRON 4MG/2ML VIAL 4 MG IV (13:23)
[2024-05-03] MEDS: ORPHENADRINE CITRATE 60MG/2ML VIAL 60 MG IV (13:23)
[2024-05-03 13:28] LABS: Basophils # 0.1 K/mm3 (0-0.2); Basophils % 0.6 % (0.1-2.0); Eosinophils # 0.2 K/mm3 (0.0-0.4); Eosinophils % 1.7 % (0.1-12.0); Hematocrit 44.7 % (37.0-47.0); Hemoglobin 15.1 g/dL (12.2-16.2); Lymphocytes # 1.4 K/mm3 (0.7-4.5); Lymphocytes % 14.9 % (10-50); Mean Corpuscular HGB Conc 33.6 g/dL (31.8-35.4); Mean Corpuscular Hemoglobin 31.4 pg (27.0-31.2); Mean Corpuscular Volume 93.2 fl (81-99); Mean Platelet Volume 8.5 fl (7.4-10.4); Monocytes # 0.5 K/mm3 (0.1-1.0); Monocytes % 5.7 % (1.7-9.3); Neutrophils # 7.3 K/mm3 (1.8-7.8); Platelet Count 249 K/mm3 (142-424); Red Cell Distribution Width 13.4 % (11.5-17.5); White Blood Count 9.4 K/mm3 (4.8-10.8)
[2024-05-03 13:33] LABS: Albumin Level 3.9 g/dl (3.5-5.0); Chloride 106 mmol/L (98-107)
[2024-05-03 13:34] LABS: Potassium 3.9 mmoL/L (3.5-5.1); Sodium 139 mmol/L (136-145)
[2024-05-03 13:36] LABS: Alanine Aminotransferase 22 U/L (12-78); Albumin/Globulin Ratio 1.4 (1.1-1.8); Alkaline Phosphatase 81 U/L (38-126); Anion Gap 5.9 mEq/L (5-15); Aspartate Amino Transferase 28 U/L (14-36); Bilirubin,Total 0.6 mg/dl (0.2-1.3); Blood Urea Nitrogen 9 mg/dl (7-17); Carbon Dioxide 31 mmol/L (22.0-30.0); Creatinine Clearance Estimated 93 mL/min (50-200); Estimated Glomerular Filt Rate 73 ml/min (>60); GFR (African American) 88 ML/MIN (>60); Globulin 2.7 g/dL (1.3-3.2); Total Protein,Serum 6.6 g/dl (6.3-8.2)
[2024-05-03 13:37] LABS: Glucose 86 mg/dl (74-100)
[2024-05-03 14:26] VITALS: BP 152/92; PULSE 85; O2SAT 95
[2024-05-03 14:42] VITALS: BP 152/88; PULSE 88; RESP 18; TEMP 36.7; O2SAT 96
== END 2024-05-03 14:49 | disposition home or self-care (01) ==
PROVIDERS: Nurse Practitioner; Emergency Provider Emergency Medicine; PCP Nurse Practitioner Family
DX: M43.6 Torticollis (principal); M54.2 Cervicalgia; R51.9 Headache, unspecified
CPT/HCPCS: 80053; 85025; 96361; 96374; 96375; 99283; J1885; J2360; J2405; J7030

== ENCOUNTER 2024-05-28 10:05 | Outpatient (CLI) | payer OTHER, SELFPAY ==
--- NOTE | 2024-05-28 10:06 | MR_ITS ---
FINAL REPORT CLINICAL HISTORY: Neck pain with right-sided radiculopathy. HX CERVICAL SURGERY 2008. COMPARISON: None FINDINGS: Multi planar MR imaging was obtained of the cervical spine. There is evidence of an anterior and interbody fusion at the C5-6 level. There is abnormal decreased signal throughout the cervical discs. There is prominent disc space narrowing at the C4-5 and C6-7 levels. The vertebrae are of normal height. There is no malalignment. The cervical cord demonstrates normal signal and configuration. C2-C3: There is no evidence of significant disc bulge or protrusion. There is no significant facet hypertrophy. C3-C4: A left paracentral disc protrusion is present with moderate compression of the left side of the canal. There is high-grade bilateral neural foraminal narrowing. C4-C5: A moderate annular bulge is present with endplate hypertrophy greater on the right than on the left, with moderate to severe left and severe right neural foraminal narrowing. C5-C6: This level has been fused. No significant canal or neural foraminal narrowing is present. C6-C7: A moderate annular bulge is present with endplate hypertrophy and severe bilateral neural foraminal narrowing. C7-T1: There is no evidence of significant disc bulge or protrusion. There is no significant facet hypertrophy. IMPRESSION: Multilevel cervical degenerative changes present, most severe at the C3-4, C4-5, and C6-7 levels as described. Reviewed, Interpreted and Dictated by Connor Blake MD Transcribed by Gissel Devi Authenticated and [facility]
== END 2024-05-28 23:59 | disposition home or self-care (01) ==
PROVIDERS: PCP Nurse Practitioner Family; Visit Provider Nurse Practitioner Family
DX: M54.2 Cervicalgia (principal); M54.12 Radiculopathy, cervical region
CPT/HCPCS: 72141

== ENCOUNTER 2024-05-29 13:41 | Outpatient (POV) | payer OTHER, SELFPAY ==
--- NOTE | 2024-05-29 14:27 | EXP.PAIN.OV ---
HPI Data of Consult Patient: new to practice Consult date: 05/29/24 Requesting Physician: Eliana Rendon APRN Primary Care Provider: Alma Gross APRN Consult Narrative Reason for consult: Neck pain, low back pain History of present illness: Ms. Coughlin is a 59 year old female who presents today as a new patient. She is a referral from Jelena Gross's office. Today she rates her pain a 3 out of 10 however does state her pain will go to a 10 out of 10 with increased activity. Patient does state that she has had both the neck and low back pain for years and that it is progressively worsened. Patient states that she does believe a lot of it is just wear and tear and denies any specific trauma or injury that initially led to the symptoms. She does describe it as a aching, throbbing sensation with varying degrees of numbness and tingling depending on what she is doing. Patient does state that she ended up having a cervical fusion of C5-C6 back in 2007 and it is just progressed since. She does state that the neck is more bothersome than the low back at this time. She denies any radiating symptoms to her arms or legs. She states that her neck pain is very limiting due to not being able to turn her head [id number] or looking up and down due to the worsening pain. Patient states that she has not had any injections for her neck but has had 1 injection of her low back done by our office a couple of years ago and that it significantly helped and lasted for over a year. Patient is interested in additional injection therapy. Patient states in the past she has had to go to the ER for worsening pain and they did give her some baclofen and it really helped however she is out of this medication. Patient denies any heart or kidney issues and states that she has been diagnosed with psoriatic arthritis. She states she was on anti-inflammatory medications however they took her off of this. And so she has had worsening pain related to it. Patient has been doing rehab currently and is continuing this with some improvement however is not doing much for her neck. She is currently managed with tramadol from an outside provider. Her Chepe has been reviewed and is appropriate. CC: Eliana Rendon APRN [facility] Disclaimer: The information contained in this section may have been updated after the patient was seen, as this information can be updated by other users. Medical History Achilles rupture, right Allergic rhinitis Arthritis Asthma, severe persistent COPD (chronic obstructive pulmonary disease) Dizziness Fatigue Grade I diastolic dysfunction Herniated disc Hypertension Surgical History History of carpal tunnel release History of tubal ligation Hx of cholecystectomy Family History Father Cancer Mother Hypertension Cancer Son Asthma Social History Smoking Status: Current every day smoker tobacco type: cigarettes packs per day: 1 second hand exposure: Yes alcohol intake: never substance use type: other current occupational status: other Travel in the last 8 weeks: None household members: other housing: house caffeine: Yes Review of Systems Review of Systems Review of systems:: pertinent systems reviewed and negative unless documented below Review of systems (narrative): Review of Systems: General: No recent weight changes, no fever, no sleep disturbances Respiratory: No cough, no shortness of air, no recurring pulmonary infections Cardiovascular/peripheral vascular: No chest pain, no palpitations, no edema, no shortness of breath Gastrointestinal: No new onset incontinence, normal bowel movements reported Genitourinary: No new onset incontinence Musculoskeletal: Neck pain, low back pain Psychiatric: [Normal mood/affect] Neurological: [Denies weakness in extremities], [denies balance issues] Meds Home Medications and Allergies Home Medications ?Medication ?Instructions ?Recorded ?Confirmed ?Type diazepam 2 mg tablet 2 mg PO PRN 01/24/23 05/19/24 History trazodone 50 mg tablet 50 mg PO PRN 01/24/23 05/19/24 History fluticasone propionate 50 2 spray intranasal DAILY PRN 04/17/23 05/19/24 History mcg/actuation nasal spray,suspension cetirizine 10 mg tablet 10 mg PO DAILY PRN Allergy symptoms 06/08/23 05/19/24 History metoclopramide HCl 10 mg tablet 10 mg PO .q8 PRN 06/20/23 05/19/24 History cyclobenzaprine 5 mg tablet 5 mg PO HS PRN muscle spasm 30 08/21/23 05/19/24 Rx days #30 tabs tramadol 50 mg tablet 50 mg PO Q6H PRN pain #30 tabs 09/14/23 05/19/24 Rx ondansetron HCl 4 mg tablet See Rx Instructions .Route 11/07/23 05/19/24 Rx .COMPLEX #30 tabs fluticasone fur. 200 mcg-umeclid See Rx Instructions .Route 02/04/24 05/19/24 Rx 62.5 mcg-vilant 25 mcg .COMPLEX #60 blisters inhalat.powder (Trelegy Ellipta) albuterol sulfate 1.25 mg/3 mL See Rx Instructions .Route 02/22/24 05/19/24 Rx solution for nebulization .COMPLEX #90 mL albuterol sulfate 90 mcg/actuation 2 puff inhalation Q4-6H PRN 02/26/24 05/19/24 History aerosol inhaler diclofenac sodium 50 mg 50 mg PO TID 02/26/24 05/19/24 History tablet,delayed release meclizine 25 mg tablet 25 mg PO TID PRN dizziness #90 tabs 03/07/24 05/19/24 Rx ipratropium 0.5 mg-albuterol 3 mg 3 ml inhalation QID PRN shortness 04/04/24 05/19/24 Rx (2.5 mg base)/3 mL nebulization of breath or wheezing #180 mL soln ketorolac 10 mg tablet 10 mg PO Q8H PRN pain 7 days #20 05/03/24 05/19/24 Rx tabs baclofen 10 mg tablet 10 mg PO BID PRN muscle spasm 30 05/19/24 05/19/24 Rx days #60 tabs famotidine 20 mg tablet 20 mg PO BID PRN 05/19/24 05/19/24 History hydrochlorothiazide 25 mg tablet 25 mg PO DAILY #30 tabs 05/19/24 05/19/24 Rx metoprolol succinate 25 mg 75 mg (3 x 25 mg) PO DAILY #90 tabs 05/19/24 05/19/24 Rx tablet,extended release 24 hr New Prescriptions to Start Prescriptions: Allergies Allergy/AdvReac Type Severity Reaction Status Date / Time No Known Allergies Allergy Verified 05/19/24 13:35 Objective Narrative: Physical Exam: General: Alert and oriented x3, no acute distress, pleasant and cooperative Lungs: Respirations even and unlabored, symmetrical chest expansion Eyes: PERRL Musculoskeletal: Flexion and extension of cervical [spine] somewhat guarded secondary to pain, [antalgic gait noted] point tenderness with palpation and positive Kemps test Neurological: Speech clear, no gross sensory deficit Additional findings Additional findings: FINDINGS: Multi planar MR imaging was obtained of the cervical spine. There is evidence of an anterior and interbody fusion at the C5-6 level. There is abnormal decreased signal throughout the cervical discs. There is prominent disc space narrowing at the C4-5 and C6-7 levels. The vertebrae are of normal height. There is no malalignment. The cervical cord demonstrates normal signal and configuration. C2-C3: There is no evidence of significant disc bulge or protrusion. There is no significant facet hypertrophy. C3-C4: A left paracentral disc protrusion is present with moderate compression of the left side of the canal. There is high-grade bilateral neural foraminal narrowing. C4-C5: A moderate annular bulge is present with endplate hypertrophy greater on the right than on the left, with moderate to severe left and severe right neural foraminal narrowing. C5-C6: This level has been fused. No significant canal or neural foraminal narrowing is present. C6-C7: A moderate annular bulge is present with endplate hypertrophy and severe bilateral neural foraminal narrowing. C7-T1: There is no evidence of significant disc bulge or protrusion. There is no significant facet hypertrophy. IMPRESSION: Multilevel cervical degenerative changes present, most severe at the C3-4, C4-5, and C6-7 levels as described. Reviewed, Interpreted and Dictated by Connor Blake MD Transcribed by Gissel Devi Authenticated and [facility] FINDINGS: There is straightening of the cervical lordosis. The bone plate is present anteriorly at C5-C6. There degenerative disc disease at C4-C5 and C6-C7. Facet hypertrophic changes are present from C3-C7. Foraminal narrowing is present on the right at C2-C3 C3-C4 C4-C5 and on the left at C3-C4 C4-C5. No obvious fracture or dislocation.. The inferior screws at the bone plate are near the C6-C7 interspace level. CT may better localize the definite location of the screws. IMPRESSION: 1. No acute fracture. 2. Multilevel cervical spondylosis. 3. Prior anterior fusion at C5-C6. The inferior screws are at the lower aspect of C6/C6-C7 Dictated by: Darrick Blackwell MD 01/28/2019 07:11 Electronically signed by Darrick Blackwell MD in [place] 01/28/2019 07:11 Assessment and Plan *Assessment and plan (1) Facet arthropathy, cervical: Status: Acute Category: Medical Code(s): M47.812 - Spondylosis without myelopathy or radiculopathy, cervical region (2) Degenerative disc disease, cervical: Status: Acute Category: Medical Code(s): M50.30 - Other cervical disc degeneration, unspecified cervical region (3) Low back pain: Status: Acute Qualifiers: Back pain laterality: right Chronicity: acute Sciatica laterality: sciatica of right side Sciatica presence: with sciatica Qualified Code(s): M54.41 - Lumbago with sciatica, right side Category: Medical Code(s): M54.50 - Low back pain, unspecified (4) History of cervical spinal arthrodesis: Status: Acute Category: Surgical Code(s): Z98.1 - Arthrodesis status Plan Patient is experiencing significant pain related to very limited range of motion in her neck with a history of prior cervical fusion. Patient did have point tenderness with palpation during today's visit and a positive Kemps test. I did discuss with the patient that I do believe that she would benefit from a cervical medial branch block. Risk and benefits were discussed with patient and she would like to proceed forward with this plan of care. Patient has tried and failed conservative therapy including oral medications, heat and ice, topicals, ongoing therapy and continued at home stretching exercise for longer than 12 weeks. Patient did have previous imaging that did show significant findings at C3-C4 and C4-C5 as well as previous facet arthropathy throughout these levels. I will order the patient a compounded cream and also send in a 30-day supply of baclofen 10 mg 3 times daily. Patient will be scheduled for a cervical medial branch block bilaterally C3-4 and C4-C5 under fluoroscopy. Patient has been instructed to contact the clinic with any concerns before the next appointment. Dr. Hernandez has reviewed this note and agrees with this plan of care. This note was dictated using voice recognition software and make contain errors or omissions. All injections are used with Lidocaine, Bupivacaine and Depo Medrol. Occasionally urine drug screen is needed to verify patient's compliance with our office pain contract. This is ordered based off specific treatments related to chronic pain with the potential to abuse certain medications.
[2024-05-29 14:34] VITALS: BP 154/97; PULSE 93; RESP 18; O2SAT 94; BMI 32.5
== END 2024-05-29 23:59 | disposition home or self-care (01) ==
PROVIDERS: PCP Nurse Practitioner Family; Visit Provider Nurse Practitioner Family
DX: M47.812 Spondylosis without myelopathy or radiculopathy, cervical region (principal); M50.30 Other cervical disc degeneration, unspecified cervical region; M54.41 Lumbago with sciatica, right side; Z98.1 Arthrodesis status; F17.210 Nicotine dependence, cigarettes, uncomplicated; Z79.899 Other long term (current) drug therapy
CPT/HCPCS: 99202; G0463

== ENCOUNTER 2024-06-17 08:36 | Day surgery (SDC) | payer OTHER, SELFPAY ==
[2024-06-17 09:36] VITALS: BP 167/88; PULSE 83; RESP 16; TEMP 36.9; O2SAT 96; BMI 33.2
--- NOTE | 2024-06-17 09:40 | P.PCN_ITS ---
Procedure Date: 06/17/24 Time: 09:35 Anesthesiologist:: Shukri Mcdonnell CRNA Complications:: None Pre-procedure Diagnosis:: Degenerative disc cervical spine multilevels. Cervical radiculopathy. Cervical facet arthropathy. Cervical spondylosis. Post-procedure Diagnosis:: Same. Indications for Procedure:: Patient is a pleasant 59-year-old female who comes to clinic today for ROUND ONE of cervical medial branch blocks/facet injections at C3-4, C4-5 levels bilaterally. Patient describes posterior cervical neck pain as constant, dull, aching. She also reports some bilateral shoulder radicular symptoms. She rates her pain 6/10. Procedure Details:: Informed consent was obtained and the risk and benefits of the procedure was explained to the patient. Patient was taken to the procedure room where noninvasive monitors were placed, including noninvasive blood pressure cuff as well as pulse oximeter. The area over the posterior cervical spine was cleansed using chlorhexidine as a cleansing solution. I anesthetized the skin and subcut aneous tissues with 1% Lidocaine. I placed 25 -gauge spinal needles into the facet joint/ medial branches of C3-4, C4-5 bilaterally. Needle placement was confirmed with fluoroscopy. After confirmation of needle placement, each site was injected with 1 mL of 1% lidocaine and 0.25 % Marcaine and 10 mg of Depo- Medrol. A total of 20 mg of depo medrol was used for bilateral medial branch blocks of C3-4, C4-5 bilaterally. Patient tolerated the procedure without difficulty. There were no complications. Plan and Disposition:: Patient was discharged without incident.
[2024-06-17] MEDS: IOPAMIDOL-200 (41%);10ML VIAL 10 ML IV (09:41)
[2024-06-17 09:52] VITALS: BP 159/78; PULSE 80; RESP 16; TEMP 36.9; O2SAT 95
[2024-06-17] MEDS: BUPIVACAINE 0.25% 10ML INJ 25 MG IJ (11:08)
[2024-06-17] MEDS: LIDOCAINE 1% 5ML PF VIAL 5 ML (11:09)
[2024-06-17] MEDS: methylPREDNISolone ACETATE 80MG/ML VIAL 80 MG (11:09)
== END 2024-06-17 09:52 | disposition home or self-care (01) ==
PROVIDERS: PCP Nurse Practitioner Family; Visit Provider Nurse Anesthetist, Certified Registered
DX: M47.812 Spondylosis without myelopathy or radiculopathy, cervical region (principal); M50.30 Other cervical disc degeneration, unspecified cervical region
CPT/HCPCS: 64490; 64491; J1010; Q9966

== ENCOUNTER 2024-07-23 14:20 | Outpatient (CLI) | payer OTHER, SELFPAY ==
--- NOTE | 2024-07-23 14:21 | CT_ITS ---
FINAL REPORT TECHNIQUE: Pre- and postcontrast images of the abdomen were performed by computed tomography. Coronal and sagittal images were obtained and reviewed. This study was performed with techniques to keep radiation doses as low as reasonably achievable, (ALARA). Individualized dose reduction techniques using automated exposure control or adjustment of mA and/or kV according to the patient's size were employed. CLINICAL HISTORY: Adrenal adenoma COMPARISON: CT chest 05/02/2024 FINDINGS: On the precontrast imaging, there is a nonobstructing lower pole left renal stone. A cyst is noted in the central liver. Compensatory hypertrophy of the right kidney is noted. The spleen is unremarkable. There is a 10 mm nodule in the left adrenal gland. An 8 mm nodule is noted in the right adrenal gland. Precontrast density of the left adrenal nodule measures -17. Precontrast density of the right adrenal nodule measures -11. There is greater than 50 washout of both adrenal nodules. These characteristics are compatible with benign adenomas. There is no evidence of adenopathy. No ascites is seen. IMPRESSION: Small bilateral adrenal nodules compatible with benign adenomas. Left renal scarring with nonobstructing left renal stone. Reviewed, Interpreted and Dictated by Casimiro Miranda MD Transcribed by Amparo Pimentel Authenticated and [facility]
[2024-07-23 14:48] LABS: Blood Urea Nitrogen 7 mg/dl (7-17); Estimated Glomerular Filt Rate 73 ml/min (>60); GFR (African American) 88 ML/MIN (>60)
[2024-07-23] MEDS: SODIUM CHLORIDE 0.9% 10ML SYR (RAD ONLY) 10 ML IV (15:33)
[2024-07-23] MEDS: IOPAMIDOL-370 (76%);100ML BOTTLE 75 ML IV (15:34)
== END 2024-07-23 23:59 | disposition home or self-care (01) ==
LOC: RAD 14:21
PROVIDERS: PCP Nurse Practitioner Family; Visit Provider Nurse Practitioner Family
DX: D35.01 Benign neoplasm of right adrenal gland (principal); D35.02 Benign neoplasm of left adrenal gland; N20.0 Calculus of kidney
CPT/HCPCS: 36415; 74170; 82565; 84520; Q9967

== ENCOUNTER 2024-09-23 16:59 | Outpatient (CLI) | payer OTHER, SELFPAY ==
[2024-09-23 13:54] LABS: Basophils # 0.1 K/mm3 (0-0.2); Basophils % 0.7 % (0.1-2.0); Eosinophils # 0.2 Kmm3 (0.0-0.4); Eosinophils % 2.6 % (0.1-12.0); Hematocrit 43.9 % (37.0-47.0); Hemoglobin 14.7 g/dL (12.2-16.2); Immature Granulocytes # 0.02 10^3uL; Immature Granulocytes % 0.3 %; Lymphocytes % 27.5 % (10-50); Mean Corpuscular HGB Conc 33.5 g/dL (31.8-35.4); Mean Corpuscular Hemoglobin 31.3 pg (27.0-31.2); Mean Corpuscular Volume 93.4 fl (81-99); Mean Platelet Volume 11.5 fl (7.4-10.4); Monocytes # 0.6 K/mm3 (0.1-1.0); Monocytes % 8.2 % (1.7-9.3); Neutrophils # 4.5 K/mm3 (1.8-7.8); Neutrophils % 60.7 % (37.0-80.0); Nucleated Red Blood Cells # 0 10^3/uL; Nucleated Red Blood Cells % 0 %; Platelet Count 241 K/mm3 (142-424); Red Cell Distribution Width 12.6 % (11.5-17.5); Red Cell Distribution Width-SD 43.4 fL; White Blood Count 7.3 K/mm3 (4.8-10.8)
[2024-09-23 14:25] LABS: Alanine Aminotransferase 28 U/L (12-78); Albumin/Globulin Ratio 1.7 (1.1-1.8); Alkaline Phosphatase 78 U/L (38-126); Anion Gap 4.8 mEq/L (5-15); Aspartate Amino Transferase 34 U/L (14-36); Bilirubin,Total 0.6 mg/dl (0.2-1.3); Blood Urea Nitrogen 8 mg/dl (7-17); Calcium 9.3 mg/dl (8.4-10.2); Carbon Dioxide 29 mmol/L (22.0-30.0); Chloride 110 mmol/L (98-107); Chol/HDL Ratio 3.8 (1-3.5); Cholesterol 223 mg/dl (140-200); Estimated Glomerular Filt Rate 85 ml/min (>60); GFR (African American) 103 ML/MIN (>60); Globulin 2.4 g/dL (1.3-3.2); Glucose 81 mg/dl (74-100); HDL Cholesterol 58 mg/dl (40-60); Potassium 3.8 mmoL/L (3.5-5.1); Sodium 140 mmol/L (136-145); Total Protein,Serum 6.4 g/dl (6.3-8.2); Triglycerides 149 mg/dl (30-150); VLDL Cholesterol 30 mg/dL (0-40)
[2024-09-23 14:36] LABS: Direct LDL Cholesterol 122.35 mg/dL (100-129)
[2024-09-23 14:48] LABS: 25-OH Vitamin D, Total 31.2 ng/mL (30-100)
[2024-09-23 15:15] LABS: Vitamin B12 387 pg/mL (239-931)
[2024-09-23 16:07] LABS: Hemoglobin A1C 4.9 % (4.0-6.0)
[2024-09-23 20:56] LABS: Thyroid Stimulating Hormone 0.82 uIU/mL (0.465-4.68)
== END 2024-09-23 23:59 | disposition home or self-care (01) ==
LOC: LAB.DROPOF 16:59
PROVIDERS: PCP Nurse Practitioner Family; Visit Provider Nurse Practitioner Family
DX: D64.9 Anemia, unspecified (principal); R79.89 Other specified abnormal findings of blood chemistry; I10 Essential (primary) hypertension
CPT/HCPCS: 80053; 80061; 82306; 82607; 82728; 83036; 84443; 85025

== ENCOUNTER 2024-10-24 12:35 | Outpatient (CLI) | payer OTHER, SELFPAY ==
--- OUTSIDE RECORDS SUMMARY | 2024-10-24 12:38 | XMS_ITS | Clinical Summary ---
Author Organization [facility] Address [address] [place] [address] Care Team Providers Care Federal Mediation Commissioner Name Role Phone Alma Gross APRN Primary Care Provider [phone]- [phone] Allergies No known active allergies Medications albuterol 1.25 MG/3ML nebulizer solution INHALE THE CONTENTS OF 1 VIAL VIA NEBULIZER EVERY 8 HOURS NEEDED 3 Active albuterol 108 (90 Base) MCG/ACT inhaler INHALE TWO PUFFS BY MOUTH EVERY 4 HOURS NEEDED --SHAKE WELL BEFORE USE-- 3 Active cetirizine (ZyrTEC) 10 MG tablet Take 1 tablet (10 mg) by mouth if needed. 3 Active cyclobenzaprine (Flexeril) 5 MG tablet Take 1 tablet (5 mg) by mouth if needed for muscle spasms. 3 Active diazePAM (Valium) 2 MG tablet Take 1 tablet (2 mg) by mouth every 12 (twelve) hours if needed for anxiety. 3 Active diclofenac (Voltaren) 50 MG EC tablet Take 1 tablet (50 mg) by mouth 3 (three) times a day. 3 Active fluticasone (Flonase) 50 MCG/ACT nasal spray Administer 2 sprays into each nostril if needed. 3 Active lisinopril-hydro CHLOROthiazide 20-12.5 MG tablet TAKE TWO TABLETS BY MOUTH ONCE A DAY 3 Active ondansetron (Zofran) 4 MG tablet Take 1 tablet (4 mg) by mouth. 3 Active traZODone (Desyrel) 50 MG tablet Take 1 tablet (50 mg) by mouth at night if needed for sleep. Active Trelegy Ellipta 200-62.5-25 MCG/ACT aerosol powder Inhale 1 puff. 4 Active metoclopramide (Reglan) 10 MG tablet 1 tablet (10 mg). 4 Active traMADol (Ultram) 50 MG tablet 1 tablet (50 mg). 4 Active ipratropium-albu terol (Duo-Neb) 0.5-2.5 mg/3 mL nebulizer solution 3 mL. 4 Active meclizine (Antivert) 25 MG tablet TAKE 1 TABLET BY MOUTH THREE TIMES DAILY NEEDED FOR DIZZINESS 4 Active varenicline (Chantix) 1 MG tablet TAKE 1 TABLET BY MOUTH TWICE DAILY AFTER COMPLETION OF STARTER PACK 4 Active folic acid (Folvite) 1 MG tabletIndication s:High risk medication use Take 1 tablet (1 mg) by mouth 1 (one) time each day. 90 tablet 4 Active predniSONE (Deltasone) 5 MG tabletIndication s:Psoriatic arthritis (CMS/HCC) 3 tablets daily x 1 week, 2 tablets daily x1 week then one tablet daily 49 tablet 4 Active nicotine (Nicoderm CQ) 14 MG/24HR patchIndications :Encounter for smoking cessation counseling Place 1 patch on the skin 1 (one) time each day at the same time. 28 patch 4 Active nicotine (Nicoderm CQ) 7 MG/24HR patchIndications :Encounter for smoking cessation counseling Place 1 patch on the skin 1 (one) time each day at the same time. Start after completing 14 mg nicoderm patch. Do not smoke while wearing patch. 14 patch 1 4 Active famotidine (Pepcid) 20 MG tabletIndication s:Gastroesophage al reflux disease, unspecified whether esophagitis present Take 1 tablet (20 mg) by mouth 2 (two) times a day. 180 tablet 2 4 Active Active Problems No known active problems Family History Medical History Relation Name Comments Cancer Father Heart disease Father Cancer Mother Heart disease Mother Relation Name Status Comments Father Mother Social History Tobacco Use Types Packs/Day Years Used Date Smoking Tobacco: Every Day Cigarettes 1 46.4 Started: 1980 Smokeless Tobacco: Never Tobacco Cessation:Ready [...] 83 04/09/2024 10:58 AM EST Temperature 36.6 C (97.9 F) 04/09/2024 10:58 AM EST Respiratory Rate 16 04/09/2024 10:58 AM EST [...] Care Team (Late st Contact Info) Description 01/07/2025 2:30 PM EDT Office Visit [facility] [address] [place] [address] Matthew, May R, [employer] [address] [place] [address] Health Maintenance Due Date Last Done Comments [facility]-/Child/Adol SDOH Screenings 1965 [facility]- SDOH Screenings 1981 [facility]-Adult SDOH Screenings [...] - Risk 60-74 years 1-dose series) 2023 [id number] Vaccine (5 - Moderna risk 2023- season) 2024 02/05/2024, 03/25/2021, 06/25/2020, Additional history exists [facility]-Depression Screening 04/09/2025 04/09/2024 [facility]-HIV Screening Completed 05/30/2023 [facility]-Hepatitis C Screening Completed 05/30/2023 [facility]-Influenza Vaccine Completed 01/28/2024 [facility]-Pneumococcal Vaccine: 50+ Years Completed 01/28/2024 [facility]-Obesity Intervention Completed 024, 10/01/2023, 06/27/2023, Additional history exists HPV Vaccines Aged Out No longer eligi ble based on patient's age to complete this topic [facility]-HIB Vaccines Aged Out No longer e [...] Procedure Name Priority Date/Time Associated Diagnosis Comments ACUTE HEPATITIS PANEL Routine 05/30/2023 1:32 PM EST Polyarthralgia HIV 1/2 ANTIBODY/ANTIGEN SCREEN WITH REFLEX TO HIV I/II DIFFERENTIATION Routine 05/30/2023 1:32 PM EST Polyarthralgia from Last 3 Months or Most Recently Relevant to Health Maintenance Results * HIV 1 & 2 Antibody/Antigen Screen (05/30/2023 1:32 PM EST) HIV 1 & 2 Antibody/Antigen Screen Non Reactive Non Reactive 05/30/2023 3:32 PM EST [facility] Comment:Screening for HIV 1 & 2 antibodies, and P24 antigen is NONREACTIVE. No confirmatory testing is required. Blood Venous blood specimen / Unknown Venipuncture / Unknown 05/30/2023 1:32 PM EST 05/30/2023 1:34 PM EST May R [facility] LAB BLOOD ORDERABLES Final Result Performing Organization Address City/[facility]/ZIP Co de Phone Number [facility] [address] [place] [address] * Acute Hepatitis Panel (05/30/2023 1:32 PM EST) Pathologist [facility] Hepatitis B Surf Antigen Negative Negative 05/30/2023 4:04 PM EST [facility] Hepatitis C Antibody Negative Negative 05/30/2023 4:04 PM EST [facility] Hepatitis A Antibody IgM Negative Negative 05/30/2023 4:04 PM EST [facility] Hepatitis B Core Antibody IgM Negative Negative 05/30/2023 4:04 PM EST [facility] Blood Venous blood specimen / Unknown Venipuncture / Unknown 05/30/2023 1:32 PM EST 05/30/2023 1:34 PM EST May [facility] LAB BLOOD ORDERABLES Final Result Performing Organization Address City/[facility] Co de Phone Number [facility] [address] [place] [address] from Last 3 Months or Most Recently Relevant to Health Maintenance Insurance DENTAL CLAIMS [facility] Care Teams Federal Mediation Commissioner Relationship Specialty Start Date End Date Alma Gross APRN [address] [place] [address] PCP - General 05/08/23
== END 2024-10-24 23:59 | disposition home or self-care (01) ==
PROVIDERS: PCP Nurse Practitioner Family; Visit Provider Internal Medicine Pulmonary Disease
DX: J44.9 Chronic obstructive pulmonary disease, unspecified (principal)

== ENCOUNTER 2024-11-04 14:53 | Outpatient (CLI) | payer OTHER, SELFPAY ==
--- OUTSIDE RECORDS SUMMARY | 2024-11-04 14:55 | XMS_ITS | Clinical Summary ---
Author Organization [facility] Address [address] [place] [address] Care Team Providers Care Anglesmith Helper Name Role Phone Alma Gross APRN Primary Care Provider [phone]- [phone] Allergies No known active allergies Medications albuterol [...] Date Smoking Tobacco: Every Day Cigarettes 1 46.5 Started: 1980 Smokeless Tobacco: Never Tobacco Cessation:Ready [...] Description 01/07/2025 2:30 PM EDT Office Visit [facility] [address] [place] [address] Matthew, May R, PEDIATRIC DENTAL ASSISTANT [address] [place] [address] Health Maintenance Due Date Last Done Comments [...] - Risk 60-74 years 1-dose series) 2023 [id number] Vaccine (5 - Moderna risk 2023- season) [...] EST 05/30/2023 1:34 PM EST May R [facility] LAB BLOOD ORDERABLES Final Result Performing Organization Address City/[facility]/ZIP Co de Phone Number [facility] [address] [place] [address] * Acute Hepatitis Panel (05/30/2023 1:32 PM EST) Pathologist [facility] Hepatitis B Surf Antigen Negative Negative 05/30/2023 4:04 PM EST [facility] Hepatitis C Antibody Negative Negative 05/30/2023 4:04 PM EST [facility] Hepatitis A Antibody IgM Negative Negative 05/30/2023 4:04 PM EST [facility] Hepatitis B Core Antibody IgM Negative Negative 05/30/2023 4:04 PM EST [facility] Blood Venous blood specimen / Unknown Venipuncture / Unknown 05/30/2023 1:32 PM EST 05/30/2023 1:34 PM EST May [facility] LAB BLOOD ORDERABLES Final Result Performing Organization Address City/[facility] Co de Phone Number [facility] [address] [place] [address] from Last 3 Months or Most Recently Relevant to Health Maintenance Insurance DENTAL CLAIMS [facility] Care Teams Anglesmith Helper Relationship Specialty Start Date End Date Alma Gross APRN [address] [place] [address] PCP - General 05/08/23
[2024-11-04] MEDS: ALBUTEROL 0.083% 2.5 MG/3 ML NEB IH (16:23)
--- NOTE | 2024-11-04 16:24 | PC.NURSE ---
PFT completed without incident. Albuterol 0.083% given via HHN, per protocol, Pt tolerated tx well.
--- NOTE | 2024-11-04 17:00 | MR_ITS ---
PROCEDURE INFORMATION: Exam: MR Thoracic Spine Without Contrast Exam date and time: 11/04/2024 4:28 PM Age: 59 years old Clinical indication: Pain in thoracic spine; Additional info: Right sided thoracic back pain TECHNIQUE: Imaging protocol: Magnetic resonance imaging of the thoracic spine without contrast. COMPARISON: CT ABDOMEN WO/W CON 07/23/2024 3:11 PM FINDINGS: Bones/joints: Vertebral bodies are maintained in height and alignment without suspicious signal changes. Spinal cord: Normal signal. No cord compression. C7-T1: Grade 1 anterolisthesis related to degenerative changes of C7-T1 with uncovering of the posterior disc resulting in [id number] bilateral neural foraminal stenosis. T1-T2: T1-T2 small posterior disc protrusion with facet osteophytosis results in moderate bilateral neural foraminal stenosis. T2-T3: T2-T3 small posterior disc protrusion indents upon the ventral thecal sac without spinal canal or neural foraminal stenosis. T3-T4: No significant disc bulge or herniation. No severe spinal canal stenosis. No significant neural foraminal narrowing. T4-T5: No significant disc bulge or herniation. No severe spinal canal stenosis. No significant neural foraminal narrowing. T5-T6: No significant disc bulge or herniation. No severe spinal canal stenosis. No significant neural foraminal narrowing. T6-T7: No significant disc bulge or herniation. No severe spinal canal stenosis. No significant neural foraminal narrowing. T7-T8: T7-T8 moderate posterior disc protrusion indents upon the ventral thecal sac results in mild spinal canal stenosis without neural foraminal stenosis. T8-T9: T8-T9 small posterior disc protrusion without spinal canal or neural foraminal stenosis. T9-T10: T9-T10 small posterior disc protrusion without spinal canal or neural foraminal stenosis. T10-T11: No significant disc bulge or herniation. No severe spinal canal stenosis. No significant neural foraminal narrowing. T11-T12: T11-T12 moderate posterior disc protrusion indents upon the ventral thecal sac resulting in mild spinal canal stenosis throughout neural foraminal stenosis. T12-L1: No significant disc bulge or herniation. No severe spinal canal stenosis. No significant neural foraminal narrowing. Soft tissues: Unremarkable. IMPRESSION: [id number] discogenic degenerative changes of the thoracic spine greatest at T7-T8 with neural foraminal and spinal canal stenosis as discussed above.
== END 2024-11-04 23:59 | disposition home or self-care (01) ==
LOC: RT 14:53
PROVIDERS: PCP Nurse Practitioner Family; Visit Provider Internal Medicine Pulmonary Disease
DX: M47.814 Spondylosis without myelopathy or radiculopathy, thoracic region (principal); M48.04 Spinal stenosis, thoracic region; M99.72 Connective tissue and disc stenosis of intervertebral foramina of thoracic region; J44.9 Chronic obstructive pulmonary disease, unspecified; L40.50 Arthropathic psoriasis, unspecified
CPT/HCPCS: 72146; 94010; 94618; 94727; 94729

== ENCOUNTER 2024-12-04 13:41 | Outpatient (CLI) | payer OTHER, SELFPAY ==
--- OUTSIDE RECORDS SUMMARY | 2024-12-04 13:44 | XMS_ITS | Clinical Summary ---
Author Organization [facility] Address [address] [place] [address] Care Team Providers Care Forensic Medical Examiner Name Role Phone Alma Gross APRN Primary Care Provider [phone] Allergies No known active allergies Medications albuterol [...] Description 01/07/2025 2:30 PM EDT [facility] [address] [place] [address] Matthew, May R, CAP BLOCKER [address] [place] [address] Health Maintenance Due Date Last Done Comments [...] - Risk 60-74 years 1-dose series) 2023 [id number] Vaccine (5 - Moderna risk 2023-) 08/04/2024 02/05/2024, 03/25/2021, 06/25/2020, Additional history exists [facility]-Influenza Vaccine (#1) 2025 01/28/2024 [facility]-Depression Screening 04/09/2025 04/09/2024 [facility]-HIV Screening Completed 05/30/2023 [facility]-Hepatitis C Screening Completed 05/30/2023 [facility]-Pneumococcal Vaccine: 50+ Years Completed 01/28/2024 [facility]-Obesity [...] PM EST 05/30/2023 1:34 PM EST may R Matthew CAP BLOCKER LAB BLOOD ORDERABLES Final Result Performing Organization Address City/[facility] Co de Phone Number [facility] [address] [place] [address] * Acute Hepatitis Panel (05/30/2023 1:32 PM EST) Hepatitis B Surf Antigen Negative Negative 05/30/2023 4:04 PM EST [facility] Hepatitis C Antibody Negative Negative 05/30/2023 4:04 PM EST [facility] Hepatitis A Antibody IgM Negative Negative 05/30/2023 4:04 PM EST [facility] Hepatitis B Core Antibody IgM Negative Negative 05/30/2023 4:04 PM EST [facility] Blood Venous blood specimen / Unknown Venipuncture / Unknown 05/30/2023 1:32 PM EST 05/30/2023 1:34 PM EST May R Matthew CAP BLOCKER LAB BLOOD ORDERABLES Final Result Performing Organization Address City/[facility] Co de Phone Number [facility] [address] [place] [address] from Last 3 Months or Most Recently Relevant to Health Maintenance Insurance CIG DENTAL CLAIMS [facility] Care Teams Forensic Medical Examiner Relationship Specialty Start Date End Date Alma Gross APRN [address] [place] [address] PCP - General 05/08/23
--- NOTE | 2024-12-04 13:46 | MR_ITS ---
FINAL REPORT TECHNIQUE: Multiplanar MR without contrast CLINICAL HISTORY: CHRONIC KORTNEY LBP W OUT SCIATICA lbp with numbness in legs COMPARISON: 07/12/2023 FINDINGS: Sagittal images show normal vertebral height. There is 5 mm of anterolisthesis of L4 on 5, stable. There is mild retrolisthesis of L3 on 4, stable. Marrow signal pattern is unremarkable. L1-2: Unremarkable L2-3: Moderate annular disc bulge, asymmetric to the left. Mild central canal stenosis and moderate bilateral neuroforaminal narrowing. L3-4: Moderate annular disc bulge and mild facet arthropathy. Moderate central canal stenosis and neuroforaminal narrowing. L4-5: Mild annular disc bulge and severe facet arthropathy. Moderate to severe central canal stenosis and neuroforaminal narrowing. L5-S1: Mild annular disc bulge and facet arthropathy. Mild neuroforaminal narrowing. IMPRESSION: Stable multilevel degenerative changes, most pronounced at L4-5. Reviewed, Interpreted and Dictated by Casimiro Miranda MD Transcribed by Cristiana Ewing Authenticated and . [facility]
== END 2024-12-04 23:59 | disposition home or self-care (01) ==
PROVIDERS: PCP Nurse Practitioner Family; Visit Provider Neurological Surgery
DX: M47.816 Spondylosis without myelopathy or radiculopathy, lumbar region (principal); M43.16 Spondylolisthesis, lumbar region; G89.29 Other chronic pain
CPT/HCPCS: 72148

== ENCOUNTER 2024-12-22 13:07 | Outpatient (POV) | payer OTHER, SELFPAY ==
--- OUTSIDE RECORDS SUMMARY | 2024-11-28 11:00 | XMS_ITS | Encounter Summary ---
[facility] Address [address] [place] [address] Care Team Providers Care Highway Construction Inspector Name Role Phone Alma Gross APRN Primary Care Provider [phone] Reason for Referral * MRI/CAT/PET Scan (Routine) - Closed Specialty Diagnoses / Procedures Referred By Contac t Referred To Contact Diagnoses Chronic bilateral low back pain without sciatica Spondylolisthesis of lumbar region Procedures MRI Lumbar Spine Without Contrast Jose Salmon MD [facility] Schedule [employer] [place] [address] Phone: tel: fax: [facility] - OUTPT PHYSICAL THERAPY [address] [facility] [address] [place] [address] Phone: tel: fax: Referral ID Status Reason Start Date Expiration Date Visits Re quested Visits Authorized [id number] Closed 11/28/2024 02/27/2026 1 1 * Physical Therapy (Routine) - Closed Specialty Diagnoses / Procedures Referred By Contac t Referred To Contact Physical Therapy Diagnoses Chronic neck pain History of fusion of cervical spine Chronic bilateral low back pain without sciatica Spondylolisthesis of lumbar region Procedures IA OFFICE/OUTPATIENT NEW MODERATE MDM 45 MINUTES Jose Salmon MD [facility] [employer] [address] [place] [address] Phone: tel: fax: [facility] - OUTPT PHYSICAL THERAPY [address] [place] [address] Phone: tel: fax: Referral ID Status Reason Start Date Expiration Date V isits Requested Visits Authorized [id number] Closed Specialty Services Required 11/28/2024 02/27/2026 1 1 Reason for Visit * Reason Comments Neck Pain Getting better Back Pain Worse when standing Numbness Fall Being for June Encounter Details Date Type Department Care Team (Late st Contact Info) Description 11/28/2024 11:00 AM EDT Office Visit [facility] [address] [phone] Jose Salmon MD [address] [facility] [address] [place], [place] [phone] Chronic neck pain (Primary Dx); History of [...] low back today. I did surgery in [place] in 2007 for an anterior cervical discectomy [...] from the following studies. MRI done at [facility] on May 28, 2024 demonstrates multilevel cervical [...] compression. MRI thoracic spine was done at [facility] and revealed multilevel degenerative change of the [...] region documented in this encounter Care Teams Highway Construction Inspector Relationship Specialty Start Date End Date Alma Gross APRN [facility] [place] [address] PCP - General Internal Medicine 07/01/24 documented as of this encounter
--- OUTSIDE RECORDS SUMMARY | 2024-12-09 13:30 | XMS_ITS | Encounter Summary ---
[facility] [address] [place] [address] Care Team Providers Care Hand Bootmaker Name Role Phone Alma Gross APRN Primary Care Provider [phone] Reason for Referral * Pain Management (Routine) - Pending Review Specialty Diagnoses / Procedures Referred By Contac t Referred To Contact Pain Medicine Diagnoses Chronic bilateral low back pain without sciatica Spondylolisthesis of lumbar region Procedures MO OFFICE/OUTPATIENT NEW MODERATE MDM 45 MINUTES Jose Salmon MD [address] [place] [address] Phone: tel: fax: Gavin Hernandez MD [address] [facility] [address] [place] [address] Phone: tel: fax: Referral ID Status Reason Start Date Expiration Date Visits Requested Visits Authorized [id number] Pending Review Specialty Services Required 12/09/2024 03/10/2026 1 1 Reason for Visit * Reason Comments Follow-up Encounter Details Date Type Department Care Team (Late st Contact Info) Description 12/09/2024 1:30 PM EDT Office Visit [facility] NEUROSURGERY [address] [place] [phone] Jose Salmon MD [address] [facility] [address] [place] [address] Chronic bilateral low back pain without sciatica [...] [facility] She has not had the physical therapy [...] spine done on November 04, 2024 at [facility] reveals some mild to moderate degenerative change throughout the thoracic spine without canal stenosis or significant neuroforaminal narrowing. MRI of the lumbar spine done on [facility]24 [facility] demonstrates multilevel degenerative changes most noted [...] with physical therapy and follow-up with her painting instructor Dr. Hernandez in [facility]. If she develops progressive low back [...] fusion of cervical spine Jose Salmon MD [facility] Neurological Surgery documented in this encounter Plan of Treatment Not on file documented as of this encounter Visit Diagnoses Diagnosis Chronic bilateral low back pain without sciatica- Primary Spondylolisthesis of lumbar region Chronic neck pain Cervicalgia History of fusion of cervical spine Arthrodesis status documented in this encounter Care Teams Hand Bootmaker Relationship Specialty Start Date End Date Alma Gross APRN [address] [place] [address] PCP - General Internal Medicine 07/01/24 documented as of this encounter
--- OUTSIDE RECORDS SUMMARY | 2024-12-22 13:11 | XMS_ITS | Encounter Summary ---
[facility] Address [address] [place] [id number] Care Team Providers Care Child Care Lead Teacher Name Role Phone Alma Gross APRN Primary Care Provider Encounter Details Date Type Department Care Team (Latest Contact Info) Description 11/28/2024 Travel Social History Tobacco Use Types Packs/Day Years Used Date Smoking Tobacco: Every Day Cigarettes Comments Unknown Sex and Gender Information Value Date Recorded Sex Assigned at Not on file Legal Sex Female 9:07 AM EDT Gender Identity Not on file Sexual Orientation Straight 11/27/2024 11 :52 AM EDT documented as of this encounter Plan of Treatment Not on file documented as of this encounter Visit Diagnoses Not on filedocumented in this encounter Care Teams Child Care Lead Teacher Relationship Specialty Start Date End Date Alma Gross APRN [address] [place] [address] [facility] [place] [address] PCP - General Internal Medicine 07/01/24 documented as of this encounter
--- OUTSIDE RECORDS SUMMARY | 2024-12-22 13:11 | XMS_ITS | Encounter Summary ---
[facility] Organization [facility] Address [address] [place] [phone] Care Team Providers Care Assistance Specialist Name Role Phone Alma Gross APRN Primary Care Provider Encounter Details Date Type Department Care Team (Latest Contact Info) Description 12/09/2024 Travel Social History Tobacco Use Types Packs/Day [...] on filedocumented in this encounter Care Teams Assistance Specialist Relationship Specialty Start Date End Date Alma Gross APRN [address] [place] [address] [facility] [place] [address] PCP - General Internal Medicine 07/01/24 documented as of this encounter
--- OUTSIDE RECORDS SUMMARY | 2024-12-22 13:11 | XMS_ITS | Clinical Summary ---
[facility] Address [address] [place] [address] Care Team Providers Care Senior Net Software Developer Name Role Phone Alma Gross APRN Primary Care Provider [phone] Allergies No known active allergies Medications albuterol sulfate HFA 108 (90 Base) MCG/ACT inhaler Inhale 1 puff 4 (Four) Times a Day. 5 Active amantadine (SYMMETREL) 100 MG tablet Take 1 tablet by mouth 2 (Two) Times a Day. 5 Active cetirizine (zyrTEC) 10 MG tablet Take 1 tablet by mouth Daily. 5 Active cyclobenzaprine (FLEXERIL) 5 MG tablet Take 1 tablet by mouth 2 (Two) Times a Day As Needed. 5 Active diclofenac (VOLTAREN) 50 MG EC tablet Take 1 tablet by mouth 2 (Two) Times a Day. 5 Active DULoxetine (CYMBALTA) 30 MG capsule Take 1 capsule by mouth Daily. 5 Active fluticasone (FLONASE) 50 MCG/ACT nasal spray Administer 1 spray into the nostril(s) as directed by provider Daily. 5 Active hydroCHLOROthia zide 25 MG tablet Take 1 tablet by mouth Daily. 5 Active ipratropium-alb uterol (DUO-NEB) 0.5-2.5 mg/3 ml nebulizer Take 1.5 mL by nebulization 4 (Four) Times a Day. 5 Active meclizine (ANTIVERT) 25 MG tablet Take 1 tablet by mouth 3 (Three) Times a Day As Needed. 5 Active metoprolol succinate XL (TOPROL-XL) 25 MG 24 hr tablet Take 3 tablets by mouth Daily. 5 Active predniSONE (DELTASONE) 10 MG tablet Take 1 tablet by mouth Daily. 5 Active traZODone (DESYREL) 50 MG tablet Take 1 tablet by mouth 3 (Three) Times a Day. Active Trelegy Ellipta 200-62.5-25 MCG/ACT inhaler Inhale 1 puff Daily. 5 Active traMADol (ULTRAM) 50 MG tablet Take 1 tablet by mouth Every 6 (Six) Hours As Needed. 5 Active diazePAM (VALIUM) 2 MG tablet TAKE ONE TABLET BY MOUTH EVERY DAY NEEDED FOR ANXIETY MAY CAUSE DROWSINESS 5 Active baclofen (LIORESAL) 10 MG tablet 5 Active Active Problems Problem Noted Date Diagnosed Date Chronic neck pain 11/28/2024 History of fusion of cervical spine 11/28/2024 Chronic bilateral low back pain without sciatica 11/28/2024 Spondylolisthesis of lumbar region 11/28/2024 Encounters Date Type Department Care Team Description 12/09/2024 1:30 PM EDT Office Visit [facility] NEUROSURGERY [facility] [phone] Jose Salmon MD Chronic bilateral low back pain without sciatica (Primary Dx); Spondylolisthesis of lumbar region; Chronic neck pain; History of fusion of cervical spine 12/09/2024 Travel 12/09/2024 Telephone [facility] NEUROSURGERY [address] [phone] Jose Salmon MD 12/08/2024 Results Follow-Up [facility] NEUROSURGERY [address] [phone] Jose Salmon MD 12/02/2024 Patient rounding ([facility] only) [facility] NE[facility] [address] [phone] Yumiko Petit MA 11/28/2024 11:00 AM EDT Office Visit [facility] NEUROSURGERY [address] [place] [phone] Jose Salmon MD Chronic neck pain (Primary Dx); History of fusion of cervical spine; Chronic bilateral low back pain without sciatica; Spondylolisthesis of lumbar region 11/28/2024 Travel 11/04/2024 Telephone [facility] NEUROSURGERY [address] [place] [phone] Jose Salmon MD 11/04/2024 [facility] NEUROSURGERY [address] [place] [phone] Jose Salmon MD 11/04/2024 Telephone [facility] NEUROSURGERY [address] [place] [phone] Jose Salmon MD from Last 3 Months Social History Tobacco Use Types Packs/Day Years Used Date Smoking Tobacco: Every Day Cigarettes Comments Unknown Sex and Gender Information Value Date Recorded Sex Assigned at Not on file Legal Sex Female 9:07 AM EDT Gender Identity Not on file Sexual Orientation Straight 11/27/2024 11 :52 AM EDT Last Filed Vital Signs Vital Sign Reading Time Taken Comments Blood Pressure 162/96 12/09/2024 1:29 PM EDT Pulse 92 12/09/2024 1:29 PM EDT Temperature - - Respiratory Rate 20 11/28/2024 10:23 AM EDT Oxygen Saturation 96% 12/09/2024 1:29 PM EDT Inhaled Oxygen Concentration - - Weight 103 kg (227 lb) 12/09/2024 1:29 PM EDT Height 175.3 cm (5' 9 ) 11/28/2024 10:23 AM EDT Body Mass Index 33.52 11/28/2024 10:23 AM EDT Plan of Treatment Health Maintenance Due Date Last Done Comments Annual Gynecologic Pelvic an d Breast Exam 1963 TDAP/TD VACCINES (1 - Tdap) 1982 PAP SMEAR 1984 MAMMOGRAM 2003 COLOGUARD 2008 COLON CANCER SCREENING 5 YEA R SIGMOIDOSCOPY 2008 COLONOSCOPY [address] CANCER SCREENING 2008 CT COLONOGRAPHY 2008 FECAL OCCULT BLOOD TEST 2008 FIT Testing (1 year) 2008 ZOSTER VACCINE (1 of 2) 2013 ANNUAL PHYSICAL 10/27/2024 INFLUENZA VACCINE 02/18/2025 01/28/2024 HEPATITIS C SCREENING Completed 05/30/2023 Pneumococcal Vaccine 50+ Completed 01/28/2024 COVID-19 Vaccine Completed 02/05/2024, 09/2020, 06/25/2020, Additional history exists Procedures Procedure Name Priority Date/Time Associated Diagnosis Comments MRI OUTSIDE FILMS Routine 12/04/2024 12: 00 AM EDT MRI LUMBAR SPINE WO CONTRAST Routine 12/04/2024 Chronic bilateral low back pain without sciatica Spondylolisthesis of lumbar region MRI OUTSIDE FILMS Routine 11/04/2024 12: 00 AM EDT from Last 3 Months Results * MRI outside films (12/04/2024 12:00 AM EDT) Only the most recent of2 resultswithin the time period is included. Narrative SYSTEMGENERATED, DOCUMENTATION - 12/09/2024 12:53 PM EDT This procedure was auto-finalized with no dictation required. Jose Salmon MD [facility] MRI ORDERABLES Fin al Result * MRI Lumbar Spine Without Contrast (12/04/2024) Anatomical Region Laterality Modality Spine, L-spine N/A Magnetic Resonan ce Jose Salmon MD [facility] MRI ORDERABLES Fin al Result from Last 3 Months Insurance [employer] Member Subscriber Plan / Payer (Ef fective 2024-Present) Name:Reed Scott Relation to Subscriber:Spouse Name:ZULEIMA SCOTT Date of :1961 Address: [address] [place] [address] [place] [address] Payer ID:[id number] (NAIC) Type:Not on file Address: [place] [phone] Care Teams Senior Net Software Developer Relationship Specialty Start Date End Date Alma Gross APRN [facility] [place] [address] [place] [address] PCP - General Internal Medicine 07/01/24
--- OUTSIDE RECORDS SUMMARY | 2024-12-22 13:11 | XMS_ITS | Encounter Summary ---
[facility] Address [address] [place] [address] Care Team Providers Care Charge Histotechnologist Name Role Phone Alma Gross APRN Primary Care Provider Encounter Details Date Type Department Care Team (Late st Contact Info) Description 12/02/2024 Patient rounding ([facility] [address] [facility] [address] [place] [address] Yumiko Petit MA Social History Tobacco Use Types Packs/Day Years Used Date Smoking Tobacco: Every Day Cigarettes Comments Unknown Sex and Gender Information Value Date Recorded Sex Assigned at Not on file Legal Sex Female 9:07 AM EDT Gender Identity Not on file Sexual Orientation Straight 11/27/2024 11 :52 AM EDT documented as of this encounter Progress Notes * Yumiko Petit MA - 12/02/2024 7:32 PM EDT A [email or web address] message has been sent to the patient for patient rounding documented in this encounter Plan of Treatment Not on file documented as of this encounter Visit Diagnoses Not on filedocumented in this encounter Care Teams Charge Histotechnologist Relationship Specialty Start Date End Date Alma Gross APRN [address] [facility] [address] [address] PCP - General Internal Medicine 07/01/24 documented as of this encounter
--- OUTSIDE RECORDS SUMMARY | 2024-12-22 13:11 | XMS_ITS | Clinical Summary ---
Author Organization [facility] Address [address] [place] [address] Care Team Providers Care Weight Loss Consultant Name Role Phone Alma Gross APRN Primary Care Provider [phone] Allergies No known active allergies Medications albuterol [...] Date Smoking Tobacco: Every Day Cigarettes 1 46.6 Started: 1980 Smokeless Tobacco: Never Tobacco Cessation:Ready [...] Description 01/07/2025 2:[address]T Office [address] [facility] [address] [place] [address] Matthew, May R, STUDENT SERVICES COUNSELOR [address] [place] [phone] Health Maintenance Due Date Last Done Comments [...] - Risk 60-74 years 1-dose series) 2023 [id number] Vaccine (5 - Moderna risk 2023-) 08/04/2024 [...] 05/30/2023 1:34 PM EST may R Matthew STUDENT SERVICES COUNSELOR LAB BLOOD ORDERABLES Final Result Performing Organization Address City/[facility] Co de Phone Number [facility] [address] [place] [address] * Acute Hepatitis Panel (05/30/2023 1:32 PM EST) Hepatitis B Surf Antigen Negative Negative 05/30/2023 4:04 PM EST [facility] Hepatitis C Antibody Negative Negative 05/30/2023 4:04 PM EST [facility] Hepatitis A Antibody IgM Negative Negative 05/30/2023 4:04 PM EST [facility] Hepatitis B Core Antibody IgM Negative Negative 05/30/2023 4:04 PM EST [facility] Blood Venous blood specimen / Unknown Venipuncture / Unknown 05/30/2023 1:32 PM EST 05/30/2023 1:34 PM EST May R Matthew STUDENT SERVICES COUNSELOR LAB BLOOD ORDERABLES Final Result Performing Organization Address City/[facility] Co de Phone Number [facility] [address] [place] [address] from Last 3 Months or Most Recently Relevant to Health Maintenance Insurance [employer] [facility] Care Teams Weight Loss Consultant Relationship Specialty Start Date End Date Alma Gross APRN [address] [place] [address] PCP - General 05/08/23
--- OUTSIDE RECORDS SUMMARY | 2024-12-22 13:11 | XMS_ITS | Encounter Summary ---
[facility] [address] [place] [address] Care Team Providers Care Home Care Chaplain Name Role Phone Alma Gross APRN Primary Care Provider + [phone] Encounter Details Date Type Department Care Team (Late st Contact Info) Description 11/04/2024 Telephone [facility]UR[facility]GERY [address] [facility] [address] [place] [address] Jose Salmon MD [address] [employer] [facility] [address] [place], [place] [id number] Social History Tobacco Use Types Packs/Day Years Used Date Smoking Tobacco: Never Assessed Comments Unknown Sex and Gender Information Value Date Recorded Sex Assigned at Not on file Legal Sex Female 9:07 AM EDT Gender Identity Not on file Sexual Orientation Straight 11/27/2024 11 :52 AM EDT documented as of this encounter Miscellaneous Notes * Telephone Encounter - Dominic Baron MA - 11/04/2024 10:17 AM EDT [place]SE[place] CAN READ Called patient to let her know we need to move her appointment from to at 1030 if this works for the patient please transfer call to dominic if this does NOT work please offer her a day nextweek documented in this encounter Plan of Treatment Not on file documented as of this encounter Visit Diagnoses Not on filedocumented in this encounter Care Teams Home Care Chaplain Relationship Specialty Start Date End Date Alma Gross APRN [address] [address] [place] [address] PCP - General Internal Medicine 07/01/24 documented as of this encounter
--- OUTSIDE RECORDS SUMMARY | 2024-12-22 13:11 | XMS_ITS | Encounter Summary ---
[facility] [address] [place] [address] Care Team Providers Care Personal Shopper Name Role Phone Alma Gross APRN Primary Care Provider + [phone] Encounter Details Date Type Department Care Team (Late st Contact Info) Description 12/08/2024 Results Follow-Up [facility] NEUROSURGERY [address] [facility] [address] [place] [phone] Jose Salmon MD [address] [facility] 400 [place] [address] Social History Tobacco Use Types Packs/Day Years Used Date Smoking Tobacco: Every Day Cigarettes Comments Unknown Sex and Gender Information Value Date Recorded Sex Assigned at Not on file Legal Sex Female 9:07 AM EDT Gender Identity Not on file Sexual Orientation Straight 11/27/2024 11 :52 AM EDT documented as of this encounter Progress Notes * Jose Salmon MD - 12/08/2024 9:52 PM EDT Patient has appointment already scheduled to review this result. No change in plan. documented in this encounter Plan of Treatment Not on file documented as of this encounter Visit Diagnoses Not on filedocumented in this encounter Care Teams Personal Shopper Relationship Specialty Start Date End Date Alma Gross APRN [address] [place] [address] [place] [address] PCP - General Internal Medicine 07/01/24 documented as of this encounter
--- OUTSIDE RECORDS SUMMARY | 2024-12-22 13:11 | XMS_ITS | Encounter Summary ---
[facility] [address] [place] [id number] Care Team Providers Care Bingo Checker Name Role Phone Alma Gross APRN Primary Care Provider + [phone] Encounter Details Date Type Department Care Team (Late st Contact Info) Description 11/04/2024 Telephone [facility] NEUR[facility]ERY [address] [facility] [address] [place] [address] Jose Salmon MD [address] [employer] [facility] [address] [place], [place] [phone] Social History Tobacco Use Types Packs/Day Years Used Date Smoking Tobacco: Never Assessed Comments Unknown Sex and Gender Information Value Date Recorded Sex Assigned at Not on file Legal Sex Female 9:07 AM EDT Gender Identity Not on file Sexual Orientation Straight 11/27/2024 11 :52 AM EDT documented as of this encounter Miscellaneous Notes * Telephone Encounter - Ciera Cho RegSched Rep - 11/04/2024 11:38 AM EDT 11/04/24 I called patient and spouse left voicemails to inform patient office appointment for 11/06/24 at 11:15 a.m. will need to change to 11/05/24 at 10:30 a.m. or reschedule to a different day. ++HUB: ok to communicate and change appointment to meet patient need. Thanks!++++ documented in this encounter Plan of Treatment Not on file documented as of this encounter Visit Diagnoses Not on filedocumented in this encounter Care Teams Bingo Checker Relationship Specialty Start Date End Date Alma Gross APRN [facility] [address] [place] [address] PCP - General Internal Medicine 07/01/24 documented as of this encounter
--- OUTSIDE RECORDS SUMMARY | 2024-12-22 13:11 | XMS_ITS | Encounter Summary ---
[facility] [address] [place] [id number] Care Team Providers Care Ergonomics Consultant Name Role Phone Alma Gross APRN Primary Care Provider + [phone] Encounter Details Date Type Department Care Team (Late st Contact Info) Description 11/04/2024 Telephone [facility] NEUROS[facility]ERY [address] [facility] [address] [place] [address] Jose Salmon MD [address] [email or web address] [facility] [address] [place], [place] [phone] Social History Tobacco Use Types Packs/Day Years [...] - Ciera Cho RegSched Rep - 11/04/2024 12:14 PM EDT 11/04/24 I called and left voicemail with patient. She has been rebooked from 11/06/24 at 11:15 a.m. to 11/18/24 at 11:15. I left her a voicemail to inform of this change. I mailed updated appointment reminder to patient address on file. +++HUB: ok to communicate and reschedule if needed. Thanks!!+++ documented in this encounter Plan of Treatment Not on file documented as of this encounter Visit Diagnoses Not on filedocumented in this encounter Care Teams Ergonomics Consultant Relationship Specialty Start Date End Date Alma Gross APRN [address] [place] [address] PCP - General Internal Medicine 07/01/24 documented as of this encounter
--- OUTSIDE RECORDS SUMMARY | 2024-12-22 13:11 | XMS_ITS | Encounter Summary ---
[facility] [address] [place] [address] Care Team Providers Care Internal Recruiter Name Role Phone Alma Gross APRN Primary Care Provider + [phone] Encounter Details Date Type Department Care Team (Late st Contact Info) Description 12/09/2024 Telephone [facility] NEUROSURGERY [address] [employer] [facility] 400 [place] [address] Jose Salmon MD [address] [email or web address] [facility] [address] [place], [place] [phone] Social History Tobacco Use Types Packs/Day Years Used Date Smoking Tobacco: Every Day Cigarettes Comments Unknown Sex and Gender Information Value Date Recorded Sex Assigned at Not on file Legal Sex Female 9:07 AM EDT Gender Identity Not on file Sexual Orientation Straight 11/27/2024 11 :52 AM EDT documented as of this encounter Miscellaneous Notes * Telephone Encounter - Pam Argueta MA - 12/09/2024 12:49 PM EDT Spoke to patient and she informed me that she will be bringing her disc with her to her appointmenttoday. I also contacted the hospital she had the MRI completed at and they informed me that it has been powershared over. documented in this encounter Plan of Treatment Not on file documented as of this encounter Visit Diagnoses Not on filedocumented in this encounter Care Teams Internal Recruiter Relationship Specialty Start Date End Date Alma Gross, SH[facility] [place] [address] [place] [address] PCP - General Internal Medicine 07/01/24 documented as of this encounter
[2024-12-22 13:19] VITALS: BP 126/72; PULSE 102; RESP 18; O2SAT 94; BMI 33.2
--- NOTE | 2024-12-22 13:43 | A.OFFVIS_ITS ---
[facility] Disclaimer: The information contained in this section may have been updated after the patient was seen, as this information can be updated by other users. Medical History Low back pain patient reports right side low back pain into buttock area with tenderness noted with walking and sitting on right buttock area suspect Sciatica, patient has muscle relaxers and pain medication at home will give injection of Dexamethasone and have her follow up if no improvement Tobacco abuse counseling Tobacco abuse Positive antinuclear antibody History of psoriatic arthritis Smoking greater than 30 pack years Fibrosis of lung COPD mixed type Asthma-chronic obstructive pulmonary disease overlap syndrome Dizziness Fatigue Grade I diastolic dysfunction Achilles rupture, right Herniated disc Allergic rhinitis Arthritis COPD (chronic obstructive pulmonary disease) Asthma, severe persistent Hypertension Surgical History History of carpal tunnel release Hx of cholecystectomy History of tubal ligation Family History Father Cancer Mother Hypertension Cancer Son Asthma Social History Smoking Status: Current every day smoker tobacco type: cigarettes packs per day: 1 second hand exposure: Yes alcohol intake: current alcohol intake frequency: holidays/special occasions only substance use type: denies use and other current occupational status: disabled Travel in the last 8 weeks?: None household members: other housing: house caffeine: Yes PM Subjective & Objective Subjective Subjective:: Patient is a pleasant 59-year-old female who presents today for worsening low back and hip pain. Today she rates her pain a 6 out of 10. Patient states the pain is all in her low back and does even go into her groin and buttocks area. She denies any symptoms into her legs. She does state that the sensation will go numb and that it is interfering with her ability perform activities of daily living such as cooking and cleaning. Patient states that she would like to see about some injections to see if this improves that overall pain. Patient did get the compounded cream and states that it seems to help however does seem to cause the dizziness. Patient has only used it very minimal for that reason. Patient did also get the baclofen 10 mg 3 times a day that we had ordered and states that it did seem to really help. Patient states that her primary care just gave her a refill and she does not need any from our office. She does also make mention today that she is still getting over some bronchitis and that she has been coughing a lot and that may have aggravated her overall back symptoms. Her Chepe has been reviewed and is appropriate. Review of Systems: General: No recent weight changes, no fever, no sleep disturbances Respiratory: No cough, no shortness of air, no recurring pulmonary infections Cardiovascular/peripheral vascular: No chest pain, no palpitations, no edema, no shortness of breath Gastrointestinal: No new onset incontinence, normal bowel movements reported Genitourinary: No new onset incontinence Musculoskeletal: Low back pain, hip pain Psychiatric: [Normal mood/affect] Neurological: [Denies weakness in extremities], [denies balance issues] Pain at rest (0-10 scale): 6 Objective Objective:: Physical Exam: General: Alert and oriented x3, no acute distress, pleasant and cooperative Lungs: Respirations even and unlabored, symmetrical chest expansion Eyes: PERRL Musculoskeletal: Flexion and extension of lumbar [spine] somewhat guarded secondary to pain, [antalgic gait noted] point tenderness along bilateral SIs w ith positive bilateral Dennise's, Consuelo's, Gaenslen's, compression and distraction exam Neurological: Speech clear, no gross sensory deficit Has patient had previous pain injection?: No Conservative treatment options previously tried: Home exercise plan Length of treatment: Longer than 12 weeks Meds Home Medications and Allergies Home Medications ?Medication ?Instructions ?Recorded ?Confirmed ?Type trazodone 50 mg tablet 50 mg PO DIRECTED PRN Sle ep 01/24/23 12/22/24 History metoclopramide HCl 10 mg tablet 10 mg PO .q8 PRN GERD 06/20/23 12/22/24 History albuterol sulfate 1.25 mg/3 mL See Rx Instructions .Ro dry creek 02/22/24 12/22/24 Rx solution for nebulization .COMPLEX #90 mL famotidine 20 mg tablet 20 mg PO BID PRN GERD 12/22/24 History cetirizine 10 mg tablet 10 mg PO DAILY PRN Allergy 0 08/08/24 12/22/24 Rx symptoms #30 tabs diclofenac sodium 50 mg 50 mg PO TID #90 tabs 12/22/24 Rx tablet,delayed release fluticasone fur. 200 mcg-umeclid See Rx Instructions . Route 08/08/24 12/22/24 Rx 62.5 mcg-vilant 25 mcg .COMPLEX #60 blisters inhalat.powder (Trelegy Ellipta) fluticasone propionate 50 2 spray intranasal DAILY PRN 08/08/24 12/22/24 Rx mcg/actuation nasal Breathing Problems #16 grams spray,suspension hydrochlorothiazide 25 mg tablet 25 mg PO DAILY #30 ta bs 08/08/24 12/22/24 Rx meclizine 25 mg tablet 25 mg PO TID PRN dizziness # 90 tabs 08/08/24 12/22/24 Rx metoprolol succinate 25 mg 75 mg (3 x 25 mg) PO DAILY #90 tabs 08/08/24 12/22/24 Rx tablet,extended release 24 hr tramadol 50 mg tablet 50 mg PO Q6H PRN pain #30 ta bs 08/08/24 12/22/24 Rx diazepam 2 mg tablet 2 mg PO .daily PRN anxiety #30 09/23/24 12/22/24 Rx tabs albuterol sulfate 90 mcg/actuation See Rx Instructions .Route 10/06/24 12/22/24 Rx aerosol inhaler .COMPLEX #8.5 grams cholecalciferol (vitamin D3) 125 250 mcg PO DAILY 09/1912/22/24 History mcg (5,000 unit) capsule duloxetine 20 mg capsule,delayed 20 mg PO DAILY #30 ca ps 12/05/24 12/22/24 Rx release baclofen 10 mg tablet 10 mg PO BID PRN muscle spas m 30 12/22/24 12/22/24 Rx days #60 tabs doxycycline hyclate 100 mg capsule 100 mg PO BID 10 da ys #20 caps 12/22/24 12/22/24 Rx ipratropium 0.5 mg-albuterol 3 mg 3 ml inhalation QID PRN shortness 12/22/24 12/22/24 Rx (2.5 mg base)/3 mL nebulization of breath or wheezing #180 mL soln prednisone 20 mg tablet 20 mg PO DAILY 7 days #7 tab s 12/22/24 12/22/24 Rx New Prescriptions to Start Prescriptions: Allergies Allergy/AdvReac Type Severity Reaction Status Date / Time No Known Allergies Allergy Verified 12/22/24 10:48 Assessment and Plan *Assessment and plan (1) Bilateral sacroiliitis: Status: Acute Category: Medical Code(s): M46.1 - Sacroiliitis, not elsewhere classified Plan Patient is experiencing worsening pain along the low back and bilateral hips. They did have limited range of motion of the lumbar spine along with point tenderness along bilateral SI joints and a positive bilateral Dennise's, Consuelo's, Gaenslen's, compression and distraction exam. I did discuss with the patient that I do believe they would benefit from bilateral SI injections. Risk and benefits were discussed with the patient and they would like to proceed forward with this option. Patient has tried and failed conservative therapy. Patient has been actively doing conservative treatment including oral medication, heat and ice, topicals, at home exercising and stretching for longer than 12 weeks. Patient is having to adjust their activity based off the increased pain resulting in activity modification. Patient did state that she has had these injections in the past and that it has been a chronic issue. Patient does not think she has had any since before 2021 but does state that they did significantly help. Patient has had longstanding chronic low back pain for longer than 6 months. If she does get significant relief she may be a potential candidate of a SI fusion in future. We will plan for a therapeutic injection of less than 1.5 mL of solution. Patient will be scheduled for bilateral SI injections under fluoroscopy. Patient has been instructed to contact the clinic with any concerns before the next appointment. Dr. Hernandez has reviewed this note and agrees with this plan of care. This note was dictated using voice recognition software and make contain errors or omissions. All injections are used with Lidocaine or Bupivacaine and dexamethasone unless diagnostic in which no steroids were injected.
== END 2024-12-22 23:59 | disposition home or self-care (01) ==
LOC: SC.PAIN 13:08
PROVIDERS: PCP Nurse Practitioner Family; Visit Provider Nurse Practitioner Family
DX: M46.1 Sacroiliitis, not elsewhere classified (principal)
CPT/HCPCS: 99212; G0463

== ENCOUNTER 2025-01-08 08:44 | Outpatient (RCR) | payer OTHER, SELFPAY | END 2025-01-08 23:59 | disposition home or self-care (01) | LOC: PT 08:44 | PROVIDERS: Visit Provider Neurological Surgery | DX: M54.2 Cervicalgia (principal); G89.29 Other chronic pain; M43.16 Spondylolisthesis, lumbar region; Z98.1 Arthrodesis status | CPT/HCPCS: 97162 ==

== ENCOUNTER 2025-01-12 16:25 | Outpatient (CLI) | payer OTHER, SELFPAY ==
--- OUTSIDE RECORDS SUMMARY | 2024-11-28 11:00 | XMS_ITS | Encounter Summary ---
[facility] Address [address] [place] [address] Care Team Providers Care Rn Supplemental Name Role Phone Alma Gross APRN Primary Care Provider [phone] Reason for Referral * MRI/CAT/PET Scan (Routine) - Closed Specialty Diagnoses / Procedures Referred By Contac t Referred To Contact Diagnoses Chronic bilateral low back pain without sciatica Spondylolisthesis of lumbar region Procedures MRI Lumbar Spine Without Contrast Jose Salmon MD [facility] [employer] [address] Phone: tel: fax: [facility] - [facility]ICAL TH[facility] [address] [facility] [address] [place] [address] Phone: tel: fax: Referral ID Status Reason Start Date Expiration Date Visits Re quested Visits Authorized [id number] Closed 11/28/2024 02/27/2026 1 1 * Physical Therapy (Routine) - Closed Specialty Diagnoses / Procedures Referred By Contac t Referred To Contact Physical Therapy Diagnoses Chronic neck pain History of fusion of cervical spine Chronic bilateral low back pain without sciatica Spondylolisthesis of lumbar region Procedures FL OFFICE/OUTPATIENT NEW MODERATE MDM 45 MINUTES Jose Salmon MD [facility] [employer] [address] [place] [address] Phone: tel: fax: [facility] - OUTPT PHYSICAL THERAPY [address] [place] [address] Phone: tel: fax: Referral ID Status Reason Start Date Expiration Date V isits Requested Visits Authorized [id number] Closed Specialty Services Required 11/28/2024 02/27/2026 1 1 Reason for Visit * Reason Comments Neck Pain Getting better Back Pain Worse when standing Numbness Fall Being for June Encounter Details Date Type Department Care Team (Late st Contact Info) Description 11/28/2024 11:00 AM EDT Office Visit [facility]UR[facility] [address] [phone] Jose Salmon MD [address] [facility] [address] [place], [place] [phone] Chronic neck pain (Primary Dx); History of [...] low back today. I did surgery in [place] in 2007 for an anterior cervical discectomy [...] from the following studies. MRI done at [facility] on May 28, 2024 demonstrates multilevel cervical [...] compression. MRI thoracic spine was done at [facility] and revealed multilevel degenerative change of the [...] region documented in this encounter Care Teams Rn Supplemental Relationship Specialty Start Date End Date Alma Gross APRN [facility] [place] [address] PCP - General Internal Medicine 07/01/24 documented as of this encounter
--- OUTSIDE RECORDS SUMMARY | 2024-12-09 13:30 | XMS_ITS | Encounter Summary ---
[facility] Address [address] [place] [address] Care Team Providers Care Professional Nurse Name Role Phone Alma Gross APRN Primary Care Provider [phone] Reason for Referral * Pain Management (Routine) - Pending Review Specialty Diagnoses / Procedures Referred By Contac t Referred To Contact Pain Medicine Diagnoses Chronic bilateral low back pain without sciatica Spondylolisthesis of lumbar region Procedures VT OFFICE/OUTPATIENT NEW MODERATE MDM 45 MINUTES Jose Salmon MD [address] [place] [address] Phone: tel: fax: Gavin Hernandez MD [address] [facility] [address] [place] [address] Phone: tel: fax: Referral ID Status Reason Start Date Expiration Date Visits Requested Visits Authorized [id number] Pending Review Specialty Services Required 12/09/2024 03/10/2026 1 1 Reason for Visit * Reason Comments Follow-up Encounter Details Date Type Department Care Team (Late st Contact Info) Description 12/09/2024 1:30 PM EDT Office Visit [facility] NEUROSURGERY [address] [place] [phone] Jose Salmon MD [address] [facility] [address] [place] [address] Chronic bilateral low back pain without sciatica (Primary Dx); Spondylolisthesis of lumbar region; Chronic neck pain; History of fusion of cervical spine Social History Tobacco Use Types Packs/Day Years [...] Sign Reading Time Taken Comments Blood Pressure 162/96 12/09/2024 1:29 PM EDT Pulse 92 12/09/2024 1:29 PM EDT Temperature - - Respiratory Rate - - Oxygen Saturation 96% 12/09/2024 1:29 PM EDT Inhaled Oxygen Concentration - - Weight 103 kg (227 lb) 12/09/2024 1:29 PM EDT Height - - Body Mass Index 33.52 11/28/2024 10:23 AM EDT documented in this encounter Progress Notes * Jose Salmon MD - 12/09/2024 1:30 PM EDT Images from the original note were not included. Subjective History of Present Illness: Reed Coughlin is a 59 y.o. female is here today for follow-up post PT, and with a new MRI L-spine done on 05/28/2024 @ [facility]. She has not had the physical therapy set up yet that set up for next month and she did complete the lumbar MRI. She states thatshe mostly has pain in the back it will occasionally radiate to the right leg but it only did so once last week and she did some of the therapy exercises she remembered and the right leg pain resolved. History of Present Illness Tobacco Use: High Risk (12/09/2024) Patient History Smoking Tobacco Use: Every Day Smokeless Tobacco Use: Unknown Passive Exposure: Not on file The following portions of the patient's history were reviewed and updated as appropriate: allergies, current medications, past family history, past medical history, past social history, past surgicalhistory and problem list. Review of Systems Objective Vitals: 12/09/24 1329 BP: 162/96 Pulse: 92 SpO2: 96% Weight: 103 kg (227 lb) PainSc: 6 Body mass index is 33.52 kg/m??. Physical Exam Neurological Exam Physical Exam: CONSTITUTIONAL: appears well developed, well-nourished and in no acute distress. NECK: the neck is supple and symmetric. The trachea is midline with no masses. PULMONARY: Respiratory effort is normal with no increased work of breathing or signs of respiratorydistress. CARDIOVASCULAR: Pedal pulses are +2/4 bilaterally. Examination of the extremities shows no edema orvaricosities. MUSCULOSKELETAL: Gait slightly wide-based SKIN: The skin is warm, dry and intact. Anterior cervical incision healed NEUROLOGIC: Normal motor strength noted. Muscle bulk and tone are normal. Sensory exam is normal to fine touch Cortical function is intact and without deficits. Speech is normal. PSYCHIATRIC: oriented to person, place and time. Patient's mood and affect are normal. Assessment & Plan Independent Review of Radiographic Studies: I personally reviewed the images from the following studies. MRI of the thoracic spine done on November 04, 2024 at [facility] reveals some mild to moderate degenerative change throughout the thoracic spine without canal stenosis or significant neuroforaminal narrowing. MRI of the lumbar spine done on December 04, 2024 at [facility] in [facility] demonstrates multilevel degenerative changes most noted at L4-L5 where there is severe facet arthropathy and moderate to severe canal stenosis. There is also grade 1 spondylolisthesis at L4-L5. Medical Decision Making: As we discussed at her last visit she has chronic neck and low back pain but her cervical MRI appears to have a stable findings. She also has spondylolisthesis at L4-5 on her new MRI but it does not appear to be significantly different than prior descriptions. There is some spinal stenosis but I would consider it moderate and she does not have radiculopathy or myelopathy consistently to see consider an operative intervention. She would like to continue the conservative treatment with physical therapy and follow-up with her dial painter Dr. Hernandez in [facility]. If she develops progressive low back problems with radiating symptoms into the legs she would need to see one of my complex spine partners to consider lumbar fusion at L4-L5. Return for If she develops recurrent low back symptoms she would need to see one of my complex spine partners. Diagnoses and all orders for this visit: 1. Chronic bilateral low back pain without sciatica (Primary) - Ambulatory Referral to Pain Management Clinic 2. Spondylolisthesis of lumbar region - Ambulatory Referral to Pain Management Clinic 3. Chronic neck pain 4. History of fusion of cervical spine Jose Salmon MD [facility] Neurological Surgery documented in this encounter Plan of Treatment Not on file documented as of this encounter Visit Diagnoses Diagnosis Chronic bilateral low back pain without sciatica- Primary Spondylolisthesis of lumbar region Chronic neck pain Cervicalgia History of fusion of cervical spine Arthrodesis status documented in this encounter Care Teams Professional Nurse Relationship Specialty Start Date End Date Alma Gross APRN [address] [place] [id number] PCP - General Internal Medicine 07/01/24 documented as of this encounter
--- OUTSIDE RECORDS SUMMARY | 2025-01-07 14:30 | XMS_ITS | Encounter Summary ---
Author Organization [facility] Address [address] [place] [address] Care Team Providers Care Certified Nurse Midwife Name Role Phone Alma Gross APRN Primary Care Provider [phone]- [phone] Reason for Referral * Imaging (Routine) - Pending Review Specialty Diagnoses / Procedures Referred By Contac t Referred To Contact Radiology Diagnoses Shortness of breath Procedures CT Chest wo IV Contrast May [address] [facility] [address] [place] [address] Phone: tel: fax: Referral ID Status Reason Start Date Expiration Date V isits Requested Visits Authorized [id number] Pending Review 01/07/2025 07/09/2026 1 1 Reason for Visit * Reason Comments Follow-up Psoriatic arthritis (CMS/HCC) Encounter Details Date Type Department Care Team (Late st Contact Info) Description 01/07/2025 2:30 PM EDT [facility] [address] [place] [address] May [address] [facility] [address] [place] [address] Psoriatic arthritis (CMS/HCC) (Primary Dx); High risk medication use; Raynaud's phenomenon without gangrene; Chronic obstructive pulmonary disease, unspecified COPD type (CMS/HCC); SILVIA positive; Gastroesophageal reflux disease, unspecified whether esophagitis present; Shortness of breath Social History Tobacco Use Types Packs/Day Years Used Date Smoking Tobacco: Every Day Cigarettes 1 46.7 Started: 1980 Smokeless Tobacco: Never Alcohol Use Standard Drinks/Week Comments Not Currently 0 (1 standard drink = 0.6 oz pur e alcohol) social PHQ-2 Answer Date Recorded Patient Health Questionnaire-2 Score 0 01/07/2025 PHQ-9 Answer Date Recorded Patient Health Questionnaire-9 Score 0 01/07/2025 Comments Unknown Sex and Gender Information Value Date Recorded Sex Assigned at Female 06/21/2023 9:06 AM EST Legal Sex Female 9:29 AM EST Gender Identity Female 06/21/2023 9:06 AM EST Sexual Orientation Not on file documented as of this encounter Last Filed Vital Signs Vital Sign Reading Time Taken Comments Blood Pressure 138/82 01/07/2025 2:21 PM EDT Pulse 89 01/07/2025 2:21 PM EDT Temperature 36.7 C (98.1 F) 01/07/2025 2:21 PM EDT Respiratory Rate - - Oxygen Saturation 94% 01/07/2025 2:21 PM EDT ra Inhaled Oxygen Concentration - - Weight 104 kg (230 lb 6.1 oz) 01/07/2025 2:21 PM EDT Height 175.3 cm (5' 9 ) 01/07/2025 2:21 PM EDT Body Mass Index 34.02 01/07/2025 2:21 PM EDT documented in this encounter Functional Status * Over the past 2 weeks, how often have you been bothered by any of the following problems? Question Answer Date of Assessment Author Little interest or pleasure in doing things Not at all 01/07/2025 2:27 PM EDT Ayush Cooper Feeling down, depressed, or hopeless Not at all 01/07/2025 2:27 PM EDT Ayush Cooper Patient Health Questionnaire -2 Score 0 01/07/2025 2:27 PM EDT Ayush Cooper * Question Answer Date of Assessment Author Trouble falling or staying asleep, or sleeping too much Not at all 01/07/2025 2:27 PM EDT Ayush Siddiqi Feeling tired or having cindy le energy Not at all 01/07/2025 2:27 PM EDT Ayush Cooper Poor appetite or overeating Not at all 01/07/2025 2: 27 PM EDT Ayush Cooper Feeling bad about yourself - or that you are a failure or have let yourself or your family down Not at all 01/07/2025 2:27 PM EDT Ayush Weiss Trouble concentrating on thi ngs, such as reading the newspaper or watching television Not at all 01/07/2025 2:27 PM EDT Ayush Cooper Moving or speaking so slowly that other people could have noticed? Or the opposite - being so fidgety or restless that you have been moving around a lot more than usual. Not at all 01/07/2025 2:27 PM EDT Ayush Cooper Thoughts that you would be better off or hurting yourself in some way Not at all 01/07/2025 2:27 PM EDT Ayush Cooper Patient Health Questionnaire -9 Score 0 01/07/2025 2:27 PM EDT Ayush Cooper * If you checked off any problems on this questionnaire so far, Question Answer Date of Assessment Author How difficult have these problems made it for you to do your work, take care of things at home, or get along with other people? Not difficult at all 01/07/2025 2:27 PM EDT Ayush Cooper documented as of this encounter Miscellaneous Notes * Progress Notes - Matthew, May R, CORRECTIONAL MANAGER - 01/07/2025 2:30 PM EDT Subjective Patient ID: Britney Coughlin is a 59 y.o. female with HPI Britney Coughlin is a 59 y.o. female with PMH significant for Achilles rupture, asthma severe persistent, COPD, hypertension,One kidney atrophy, Psoriasis, hx of CTS surgery on right needs it on the left, and herniated disc, DDD , who presents as a follow up evaluation for PsA Last seen by me 03/2024 Referral note and labs reviewed: Uric acid 4.6, ESR 17, rheumatoid factor 11.6, SILVIA positive 1:1280nucleolar Rheum Med HX: SSZ started 06/2023-03/2024 stopped due worsening lung condition Cosentyx start 12/2024 Last visit:: Active with Pulmonary Rehab.Right knee pain. Left knee pain. Low back pain. COPD has worsened she is now on Oxygen. Vertigo today. Started 04/07 woke up with it. Changing positions makesher dizzy. Vertigo at night. Sleep study pending. Pt showed me her phone with o2 sats ranging from 70-93%. Worsening shortness of air. Today: On a CPAP with oxygen. Doing well today. Stopped SSZ due to worsening lung condition. She had a COPD exhas since last visit. Had urgent neck pain and muscle spasm. Went to ER they gave her Toradol injection and Baclofen that helped a lot. She is active with Neurosurgery for spine pain. He is in [facility]. Getting an injection in each SI joint soon. She is seeing pain management. Raynaud's worsening. Psoriasis in scalp noted. Initial Rheumatological ROS positive for dry mouth, [...] No hx of alcohol abuse. 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) Fallen arches Gallstone Herniated cervical disc [...] packs/day: 1.00 Average packs/day: 1 pack/day for 46.6 years (46.6 ttl pk-yrs) Types: Cigarettes Start date: 1978 [...] file Stress: Not on file Social Connections: Unknown (03/02/2023) Received from [facility] Family and Community Support Help with Day-to-Day Activities: Not on file Lonely or Isolated: Not on file Intimate Partner Violence: Unknown (03/02/2023) Received from [facility] Abuse Screen Unsafe at Home or Work/School: Not on file Feels Threatened by Someone?: Not on file Does Anyone Keep You from Contacting Others or Doint Things Outside the Home?: Not on file Physical Sign of Abuse Present: Not on file Housing Stability: Unknown (03/02/2023) Received from [facility] Housing Stability Current Living Arrangements: Not on file Potentially Unsafe Housing Conditions: Not on file Family History Problem Relation [...] 4 HOURS NEEDED --SHAKE WELL BEFORE USE-- baclofen (Lioresal) 10 MG tablet cetirizine (ZyrTEC) 10 MG tablet Take 1 [...] by mouth 3 (three) times a day. DULoxetine (Cymbalta) [address] capsule Take 1 capsule by mouth daily. Do not crush or chew. famotidine (Pepcid) 20 MG tablet Take 1 tablet (20 mg) by mouth 2 (two) times a day. 180 tablet 2 fluticasone (Flonase) 50 MCG/ACT nasal spray Administer [...] TWICE DAILY AFTER COMPLETION OF STARTER PACK nicotine (Nicoderm CQ) 14 MG/24HR patch Place 1 patch on the skin 1 (one) time each day at the sametime. (Patient not taking: Reported on 01/07/2025) 28 patch 0 nicotine (Nicoderm CQ) 7 MG/24HR patch Place 1 patch on the skin 1 (one) time each day at the same time. Start after completing 14 mg nicoderm patch. Do not smoke while wearing patch. (Patient not taking: Reported on 01/07/2025) 14 patch 1 No current facility-administered medications for this visit. Objective Vitals: 01/07/25 1421 BP: 138/82 Pulse: 89 Temp: 36.7 ??C (98.1 ??F) SpO2: 94% [...] is currently no information [facility]. Go to the Rheumatology activity andcomplete the [facility] joint exam. Joint Exam 01/07/2025 No joint exam has been documented for this visit 05/30/2023 06/27/2023 04/09/2024 RAMIREZ-28 (ESR) -- -- -- RAMIREZ-28 (CRP) -- -- -- Tender (RAMIREZ-28) Swollen (RAMIREZ-28) Provider Global -- -- -- Patient Global -- -- -- ESR -- -- 11 mm/hr CRP -- -- 3.2 mg/L Swollen Joint Count: Swollen: -- 0 Tender Joint Count: Tender: -- 0 Patient global assessment: 5.5/10 Rapid 3 score: 14.2/30 CDAI: IMAGING 05/30/2023 FINDINGS: Right hand and [...] consistent with a least underlying tendinosis. Assessment/Plan No diagnosis found. Diagnosis Plan 1. PsA/ SILVIA positive 1:1280 nucleolar/ Scalp Psoriasis Diff Dx: PsA, RA, SpA No synovitis or Dactylitis Right achilles tender and swollen ( hx of tenosynovitis, tendon tear,) Brother with Psoriasis History sounds mixed mechanical/inflammatory + enthesopathy ? Raynaud's on feet noticed recently +GERD [place] criteria + family hx + nail dystrophy Neg RF Discussed risks vs benefits of medication Neg RF, CCP CRP MRI showed DDD Lumbar Spine Hold SSZ for now due to worsening lung disease. Work up pending HRCT of chest ordered Start IL-17. Discussed risks vs benefits of medication. Hold for any s/s of infection. 2. COPD This affected my decision making process On Trelegy Followed by PCP Worsening symptoms On oxygen 1 LPM at night HRCT ordered today Active with Pulmonary Rehab.Right knee pain. Left knee pain. Low back pain. COPD has worsened she is now on Oxygen. Vertigo today. 3. Severe Vit D def Pt showed [...] of chronic medical conditions. Treatment optionswere discussed, [id number] 5. 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 High risk medication monitoring Cosentyx -CBC, CMP, -HIV neg 05/2023 -HBV neg 05/2023 recheck today -HCV neg 05/2023 recheck today -TB Quant Gold -Prevnar -Pneumovax -COVID HCQ - eye exam RTC 4 months Today, I personally spent minutes on [...] Parts of this note were dictated using Where Was it Filmed Direct voice recognition software. As a result, errors may occur. When identified, these roaster helper errors are corrected, but while every attempt is made to prevent/correct these, errors may still exist. , documented in this encounter Plan of Treatment Upcoming Encounters Date Type Department Care Team (Late st Contact Info) Description 02/06/2025 2:00 PM EDT Appointment [facility] CT [address] [place] [address] 05/18/2025 2:30 PM EST Office Visit [facility] Medicine Specialties [address] [place] [address] MatthewMay R, CORRECTIONAL MANAGER [address] [place] [address] Scheduled Orders Name Type Priority Associated Diagnoses Orde r Schedule CT Chest wo IV Contrast Imaging Routine Shortness of breath Expected: 02/07/2025 (Approximate), Expires: 07/11/2026 documented as of this encounter Results * Rheumatoid Factor, Plasma (01/07/2025 4:03 PM EDT) Rheumatoid Factor, Plasma <10 <14 IU/mL 01/07/2025 10:33 PM EDT [facility] Blood Venous blood specimen / Unknown Venipuncture / Unknown 01/07/2025 4:03 PM EDT 01/07/2025 4:03 PM EDT May Matthew CORRECTIONAL MANAGER LAB BLOOD ORDERABLES Final Result [facility] [address] [place] [address] * Cryoglobulin, Serum (SO) (01/07/2025 4:03 PM EDT) Cryoglobulin, S Negative Negative %ppt 01/12/2025 10:33 PM EDT [facility] ([facility]) Comment: This test is negative at 24 hours. All samples are held and reviewed again at 7 days. If delayed precipitation occurs after 7 days, Immunofixation will be performed and an additional report will follow. Test Performed by: [facility] [address] [place] [address] Manager Wireless: Barbara Easley Ph.D.; CLIA# [id number] Blood Venous blood specimen / Unknown Venipuncture / Unknown 01/07/2025 4:03 PM EDT 01/07/2025 4:03 PM EDT may Matthew CORRECTIONAL MANAGER LAB REF LAB BLOOD AND FLUID ORD Final Result [facility] ([facility]) * ANTI NUCLEAR AB (01/07/2025 4:03 PM EDT) SILVIA INTERPRETIVE COMMENT See Note 01/10/2025 5:13 PM EDT [facility] ([facility]) Anti Nuc Ab Screen <1:80 <1:80 01/10/2025 5:13 PM EDT [facility] ([facility]) Blood Venous blood specimen / Unknown Venipuncture / Unknown 01/07/2025 4:03 PM EDT 01/07/2025 4:03 PM EDT Narrative [facility] ([facility]) - 01/10/2025 5:13 PM EDT Clinical Interpretation: Antinuclear antibodies by IFA negative for homogeneous, [...] diseases (cancers, autoimmune, infectious, and inflammatory conditions) and may also occur in healthy individuals in [...] or diseases. Mitotic staining patterns not reported. Negative results do not necessarily rule out SARD. Performed By: [facility] [address] [place] [address] Specialty Cook: Martell Anton MD, PhD CLIA Number: [id number] May Matthew CORRECTIONAL MANAGER LAB BLOOD ORDERABLES Final Result Performing Organization Address City/[facility]/ZIP Co de Phone Number [facility] ([place]) [address] [place] [address] * C4 Complement (01/07/2025 4:03 PM EDT) C4 Complement 29 13 - 36 mg/dL 01/07/2025 10:33 PM EDT [facility] Blood Venous blood specimen / Unknown Venipuncture / Unknown 01/07/2025 4:03 PM EDT 01/07/2025 4:03 PM EDT May Matthew CORRECTIONAL MANAGER LAB BLOOD ORDERABLES Final Result Performing Organization Address City/[facility]/ZIP Co de Phone Number [facility] [address] [place] [address] * (ABNORMAL) C3 Complement (01/07/2025 4:03 PM EDT) C3 Complement 174(H) 84 - 166 mg/dL 01/07/2025 10:33 PM EDT [facility] Blood Venous blood specimen / Unknown Venipuncture / Unknown 01/07/2025 4:03 PM EDT 01/07/2025 4:03 PM EDT May Matthew CORRECTIONAL MANAGER LAB BLOOD ORDERABLES Final Result [facility] [address] [place] [address] * (ABNORMAL) C-Reactive Protein, Plasma (01/07/2025 4:03 PM EDT) CRP, Plasma 11.5(H) <=8.0 mg/L 01/07/2025 7:54 PM EDT [facility] Blood Venous blood specimen / Unknown Venipuncture / Unknown 01/07/2025 4:03 PM EDT 01/07/2025 4:03 PM EDT Narrative [facility] - 01/07/2025 7:54 PM EDT This CRP test is appropriate for assessment of infection, systemic inflammation and/or tissue injury. To assess cardiovascular disease risk order high sensitivity CRP (CRPH). us May Matthew CORRECTIONAL MANAGER LAB BLOOD ORDERABLES Final Result Performing Organization Address City/[facility]/ZIP Co de Phone Number [facility] [address] [place] [address] * Hepatic Function Panel (01/07/2025 4:03 PM EDT) Conjugated Bilirubin, Plasma <0.2 <=0.3 mg/dL 01/07/2025 7:54 PM EDT [facility] Alkaline Phosphatase, Plasma 90 46 - 142 U/L 01/07/2025 7:54 PM EDT [facility] Total Bilirubin, Plasma 0.2 0.2 - 1.1 mg/dL 01/07/2025 7:54 PM EDT [facility] Albumin, Plasma 3.8 3.5 - 5.2 g/dL 01/07/2025 7:54 PM EDT [facility] Total Protein 6.4 6.3 - 7.9 g/dL 01/07/2025 7:54 PM EDT [facility] ALT, Plasma 26 10 - 35 U/L 01/07/2025 7:54 PM EDT [facility] AST, Plasma 30 10 - 35 U/L 01/07/2025 7:54 PM EDT [facility] Blood Venous blood specimen / Unknown Venipuncture / Unknown 01/07/2025 4:03 PM EDT 01/07/2025 4:03 PM EDT may Matthew CORRECTIONAL MANAGER LAB BLOOD ORDERABLES Final Result Performing Organization Address City/[facility]/ZIP Co de Phone Number [facility] [address] [place] [address] * Creatinine, Plasma (01/07/2025 4:03 PM EDT) Creatinine, Plasma 0.68 0.60 - 1.10 mg/dL 01/07/2025 7:54 PM EDT [facility] eGFRcr 99.2 mL/min/1.7 3m*2 01/07/2025 7:54 PM EDT [facility] Comment:Reported eGFRcr in m L/min/1.73m2 is based the CKD-EPI 2020 equation that does not use a race coefficient. Blood Venous blood specimen / Unknown Venipuncture / Unknown 01/07/2025 4:03 PM EDT 01/07/2025 4:03 PM EDT may Matthew ROBERTSONN LAB BLOOD ORDERABLES Final Result [facility] [address] [place] [address] * (ABNORMAL) CBC and Differential (01/07/2025 4:03 PM EDT) Pathologist [facility] WBC Count 9.02 3.70 - 10.30 10*3/uL LAB HEMATOLOGY METHOD 01/07/2025 7:08 PM EDT [facility] RBC Count 4.66 3.90 - 5.20 10*6/uL LAB HEMATOLOGY METHOD 01/07/2025 7:08 PM EDT [facility] HGB 14.5 11.2 - 15.7 g/dL LAB HEMATOLOGY METHOD 01/07/2025 7:08 PM EDT [facility] HCT 43.6 34.0 - 45.0 % LAB HEMATOLOGY METHOD 01/07/2025 7:08 PM EDT [facility] Platelet Count 269 155 - 369 10*3/uL LAB HEMATOLOGY METHOD 01/07/2025 7:08 PM EDT [facility] MCV 94 79 - 98 fL LAB HEMATOLOGY METHOD 01/07/2025 7:08 PM EDT [facility] MCH 31.1 26.0 - 32.0 pg LAB HEMATOLOGY METHOD 01/07/2025 7:08 PM EDT [facility] MCHC 33.3 30.7 - 35.5 g/dL LAB HEMATOLOGY METHOD 01/07/2025 7:08 PM EDT [facility] RDW 13.7 11.5 - 14.5 % LAB HEMATOLOGY METHOD 01/07/2025 7:08 PM EDT [facility] MPV 11.7 8.8 - 12.5 fL LAB HEMATOLOGY METHOD 01/07/2025 7:08 PM EDT [facility] nRBC 0.0 <=0.0 per 100 WBCs LAB HEMATOLOGY METHOD 01/07/2025 7:08 PM EDT [facility] Differential Type Automated LAB HEMATOLOGY METHOD 01/07/2025 7:08 PM EDT [facility] Neutrophils % 68 % LAB HEMATOLOGY METHOD 01/07/2025 7:08 PM EDT [facility] Lymphocytes % 21 % LAB HEMATOLOGY METHOD 01/07/2025 7:08 PM EDT [facility] Monocytes % 8 % LAB HEMATOLOGY METHOD 01/07/2025 7:08 PM EDT [facility] Eosinophils % 2 % LAB HEMATOLOGY METHOD 01/07/2025 7:08 PM EDT [facility] Basophils % 1 % LAB HEMATOLOGY METHOD 01/07/2025 7:08 PM EDT [facility] Immature Granulocytes % 0 % LAB HEMATOLOGY METHOD 01/07/2025 7:08 PM EDT [facility] Neutrophils Absolute 6.21(H) 1.60 - 6.10 10*3/uL LAB HEMATOLOGY METHOD 01/07/2025 7:08 PM EDT [facility] Lymphocytes Absolute 1.90 1.20 - 3.90 10*3/uL LAB HEMATOLOGY METHOD 01/07/2025 7:08 PM EDT [facility] Monocytes Absolute 0.70 0.30 - 0.90 10*3/uL LAB HEMATOLOGY METHOD 01/07/2025 7:08 PM EDT [facility] Eosinophils Absolute 0.14 0.00 - 0.50 10*3/uL LAB HEMATOLOGY METHOD 01/07/2025 7:08 PM EDT [facility] Basophils Absolute 0.05 0.00 - 0.10 10*3/uL LAB HEMATOLOGY METHOD 01/07/2025 7:08 PM EDT [facility] Immature Granulocytes Absolute 0.02 0.00 - 0.06 10*3/uL LAB HEMATOLOGY METHOD 01/07/2025 7:08 PM EDT [facility] Blood Venous blood specimen / Unknown Venipuncture / Unknown 01/07/2025 4:03 PM EDT 01/07/2025 4:03 PM EDT Narrative [facility] - 01/07/2025 7:08 PM EDT Therapeutic decision making should be based on absolute values, rather than percentages. may Matthew CORRECTIONAL MANAGER LAB BLOOD ORDERABLES Final Result [facility] [address] [place] [address] * (ABNORMAL) RNA Polymerase III Antibody, IgG (01/07/2025 4:03 PM EDT) RNA Polymerase III Antibody, IgG 103(H) 0 - 19 Units 01/10/2025 9:46 PM EDT [facility] ([facility]) Blood Venous blood specimen / Unknown Venipuncture / Unknown 01/07/2025 4:03 PM EDT 01/07/2025 4:03 PM EDT Narrative [facility] ([facility]) - 01/10/2025 9:46 PM EDT INTERPRETIVE INFORMATION: RNA Polymerase III Antibody, IgG 19 Units or less ......Negative 20 - 39 Units .........Weak Positive 40 - 80 Units .........Moderate Positive 81 Units or greater ...Strong Positive The presence [...] antibodies associated with SSc, including centromere, Scl-70, U3-GLOBAL RECRUITER, PM/Scl, or Th/To. Performed By: [facility] [address] [place] [address] Specialty Cook: Martell Anton MD, PhD CLIA Number: [id number] may Matthew CORRECTIONAL MANAGER LAB BLOOD ORDERABLES Final Result [facility]) [address] [place] [address] * Centromere Antibody, IgG (01/07/2025 4:03 PM EDT) Centromere Ab, IgG 0 0 - 40 AU/mL 01/11/2025 12:33 AM EDT [facility] ([facility]) Blood Venous blood specimen / Unknown Venipuncture / Unknown 01/07/2025 4:03 PM EDT 01/07/2025 4:03 PM EDT Narrative [facility]) - 01/11/2025 12:33 AM EDT INTERPRETIVE INFORMATION: Centromere Ab, IgG 29 AU/mL or Less ............. Negative 30 - 40 AU/mL ................ Equivocal 41 AU/mL or Greater .......... Positive When detected [...] other antibodies associated with SSc, including Scl-70, U3-GLOBAL RECRUITER, PM/Scl, or Th/To. Performed By: [facility] [address] [place] [address] Specialty Cook: Martell Anton MD, PhD CLIA Number: [id number] may Matthew CORRECTIONAL MANAGER LAB BLOOD ORDERABLES Final Result [facility] ([facility]) [address] [place] [address] * Anti-scleroderma antibody (01/07/2025 4:03 PM EDT) SCLERODERMA (SCL-70) ([facility]) ANTIBODY, IGG 0 0 - 40 AU/mL 01/11/2025 12:33 AM EDT [facility] ([facility]) Blood Venous blood specimen / Unknown Venipuncture / Unknown 01/07/2025 4:03 PM EDT 01/07/2025 4:03 PM EDT Narrative [facility] ([facility]) - 01/11/2025 12:33 AM EDT INTERPRETIVE INFORMATION: Scleroderma (Scl-70) ([facility]) Ab, IgG 29 AU/mL or Less ............. Negative 30 - 40 AU/mL ................ Equivocal 41 AU/mL or Greater .......... Positive The presence of Scl-70 antibodies (also referred to as topoisomerase I, margaxu-I or NANCY) is considered diagnostic for systemic [...] testing for centromere, RNA polymerase III and U3-GLOBAL RECRUITER, PM/Scl, or Th/To antibodies. Performed By: [facility] [address] [place] [address] Specialty Cook: Martell Anton MD, PhD CLIA Number: [id number] May Matthew CORRECTIONAL MANAGER LAB BLOOD ORDERABLES Final Result Performing Organization Address City/[facility]/ZIP Co de Phone Number [facility] ([facility]) [address] [place] [address] * Quantiferon TB Gold Plus (01/07/2025 4:03 PM EDT) [facility] Quantiferon TB Gold Plus Result Negative Negative 01/08/2025 7:53 PM EDT [facility] TB Nill Value 0.0403 IU/mL 01/08/2025 7:53 PM EDT [facility] TB Antigen 1 0.0249 IU/mL 01/08/2025 7:53 PM EDT [facility] TB Antigen 2 0.0152 IU/mL 01/08/2025 7:53 PM EDT [facility] TB Mitogen 9.9597 IU/mL 01/08/2025 7:53 PM EDT [facility] Blood Venous blood specimen / Unknown Venipuncture / Unknown 01/07/2025 4:03 PM EDT 01/07/2025 4:03 PM EDT Narrative [facility] - 01/08/2025 7:53 PM EDT Responses to the Mitogen positive control and occasionally to TB antigen can be above the assay range. For calculation purposes: IFN-gamma values > 10 IU/mL are handled as 10 IU/mL. May Matthew CORRECTIONAL MANAGER LAB BLOOD ORDERABLES Final Result [facility] [address] [place] [address] * Hepatitis C Antibody (01/07/2025 4:03 PM EDT) Pathologist [facility] Hepatitis C Antibody Negative Negative 01/07/2025 7:32 PM EDT [facility] Blood Venous blood specimen / Unknown Venipuncture / Unknown 01/07/2025 4:03 PM EDT 01/07/2025 4:03 PM EDT us May R Matthew CORRECTIONAL MANAGER LAB BLOOD ORDERABLES Final Result Performing Organization Address City/[facility]/ZIP Co de Phone Number [facility] [address] [place] [address] * Hepatitis B Core Total Antibody IgG,IgM (01/07/2025 4:03 PM EDT) Hepatitis B Core Total Antibody IgG,IgM Negative Negative 01/07/2025 8:30 PM EDT [facility] Blood Venous blood specimen / Unknown Venipuncture / Unknown 01/07/2025 4:03 PM EDT 01/07/2025 4:03 PM EDT us May Matthew CORRECTIONAL MANAGER LAB BLOOD ORDERABLES Final Result Performing Organization Address City/[facility] Co de Phone Number [facility] [address] [place] [address] documented in this encounter Visit Diagnoses Diagnosis Psoriatic arthritis (CMS/HCC)- Primary Psoriatic arthropathy High risk medication use Raynaud's phenomenon without gangrene Chronic obstructive pulmonary disease, unspecified COPD type (CMS/HCC) SILVIA positive Gastroesophageal reflux disease, unspecified whether esophagitis present Shortness of breath documented in this encounter Additional Health Concerns Assessment Noted Time PHQ-9 Depression Total Score: 0 01/08/20 2:27 PM EDT A fall risk assessment has been complete d for the patient 01/07/2025 2:27 PM EDT A Body Mass Index follow-up plan has been documented for the patient 01/07/2025 3:27 PM EDT documented as of this encounter Care Teams Certified Nurse Midwife Relationship Specialty Start Date End Date Alma Gross APRN [address] [place] [address] PCP - General 05/08/23 documented as of this encounter
[2025-01-12 17:32] LABS: Coronavirus 19, PCR Not Detected (NotDetected); Influenza A, PCR Not Detected (NotDetected); Influenza B, PCR Not Detected (NotDetected)
--- OUTSIDE RECORDS SUMMARY | 2025-01-14 11:37 | XMS_ITS | Encounter Summary ---
[facility] Address [address] [place] [address] Care Team Providers Care Senior Sourcing Manager Name Role Phone Alma Gross APRN Primary Care Provider Encounter Details Date Type Department Care Team (Late st Contact Info) Description 12/02/2024 Patient rounding ([facility] [facility] [address] [facility] [address] [place] [address] Yumiko Petit MA Social History [...] MA - 12/02/2024 7:32 PM EDT A [employer] message has been sent to the patient for patient rounding documented in this encounter Plan of Treatment Not on file documented as of this encounter Visit Diagnoses Not on filedocumented in this encounter Care Teams Senior Sourcing Manager Relationship Specialty Start Date End Date Alma Gross APRN 1210 [facility] [address] [address] PCP - General Internal Medicine 07/01/24 documented as of this encounter
--- OUTSIDE RECORDS SUMMARY | 2025-01-14 11:37 | XMS_ITS | Encounter Summary ---
[facility] Address [address] [place] [id number] Care Team Providers Care Line Haul Driver Name Role Phone Alma Gross APRN Primary [...] on filedocumented in this encounter Care Teams Line Haul Driver Relationship Specialty Start Date End Date Alma Gross APRN [address] [place] [address] [facility] [place] [address] PCP - General Internal Medicine 07/01/24 documented as of this encounter
--- OUTSIDE RECORDS SUMMARY | 2025-01-14 11:37 | XMS_ITS | Encounter Summary ---
[facility] Organization [facility] Address [address] [place] [address] Care Team Providers Care Console Manager Name Role Phone Alma Gross APRN Primary Care Provider + [phone] Encounter Details Date Type Department Care Team (Late st Contact Info) Description 12/09/[address] [facility] [address] [employer] [facility] [address] [place] [address] Jose Salmon MD [address] [employer] [facility] 400 [place], [place] [id number] Social History Tobacco Use Types Packs/Day Years [...] on filedocumented in this encounter Care Teams Console Manager Relationship Specialty Start Date End Date Alma Gross, [facility]0 [place] [address] [place] [address] PCP - General Internal Medicine 07/01/24 documented as of this encounter
--- OUTSIDE RECORDS SUMMARY | 2025-01-14 11:37 | XMS_ITS | Encounter Summary ---
Author Organization Healthcare Address [address] [place] [address] Care Team Providers Care Heel Seat Laster Name Role Phone Renato Almanaima Morgan APRN Primary Care Provider +1- [phone] Encounter Details Date Type Department Care Team (Late st Contact Info) Description 01/12/2025 Telephone [facility] [address], [address] [place] [address] Matthew Cristel R, DATA CONVERSION DEVELOPER [address] [place] [address] Social History Tobacco Use Types [...] about a PA Best contact number: Other: [phone] Optimal time of day to reach caller: [...] Info) Description 02/06/2025 2:00 PM EDT Appointment [facility] [address]nd [place] [address] 05/18/2025 2:30 PM EST Office Visit [facility] [address], [address] [place] [address] Cristel Castro R, DATA CONVERSION DEVELOPER [address] [place] [address] documented as of this encounter [...] documented as of this encounter Care Teams Heel Seat Laster Relationship Specialty Start Date End Date Alma Gorss APRN [address] [place] [address] PCP - General 05/08/23 documented as of this encounter
--- OUTSIDE RECORDS SUMMARY | 2025-01-14 11:37 | XMS_ITS | Clinical Summary ---
Author Organization [facility] Address [address] [place] [address] Care Team Providers Care Material Control Associate Name Role Phone Alma Gross APRN Primary Care Provider +1- [phone] Allergies No known active allergies Medications albuterol [...] [facility] Specialties [address], [address] [place] [address] Matthew, Cristel R, VIDEO ARCADE MANAGER 01/07/2025 2:30 PM EDT Office [facility] [address], [address] [place] [address] Matthew, May R, VIDEO ARCADE MANAGER Psoriatic arthritis (CMS/HCC) (Primary Dx); High risk medication use; Raynaud's phenomenon without gangrene; Chronic obstructive pulmonary disease, unspecified COPD type (CMS/HCC); SILVIA positive; Gastroesophageal reflux disease, unspecified whether esophagitis present; Shortness of breath 01/07/2025 Telephone [place] [facility] [address], [address] [place] [address] Nayeli Izaguirre, PharmD [employer] New [...] Info) Description 02/06/2025 2:00 PM EDT Appointment [facility] [address], [address]nd [place] [address] 05/18/2025 2:30 PM EST Office [facility] [place] [facility] [address], [address] [place] [address] Matthew, May R, VIDEO ARCADE MANAGER [address] [place] [address] Health Maintenance Due Date Last [...] - Risk 60-74 years 1-dose series) 2023 [id number] Vaccine (5 - Moderna risk 2023- season) [...] EDT High risk medication use SCLERODERMA (SCL-70) (ADVID) ANTIBODY, IGG (SO) Routine 01/07/2025 4:03 PM [...] Negative Negative %ppt 01/12/2025 10:33 PM EDT [facility] ([facility]) Comment: This test is negative at 24 hours. All samples are held and reviewed again at 7 days. If delayed precipitation occurs after 7 days, Immunofixation will be performed and an additional report will follow. Test Performed by: [facility] [place] [address] [place] [address] Internal Wholesaler: Barbara Easley Ph.D.; CLIA# [id number] Blood Venous blood specimen / Unknown Venipuncture / Unknown 01/07/2025 4:03 PM EDT 01/07/2025 4:03 PM EDT May R Matthew VIDEO ARCADE MANAGER LAB REF LAB BLOOD AND FLUID ORD Final Result [facility] ([place]) * (ABNORMAL) RNA Polymerase III Antibody, IgG (01/07/2025 4:03 PM EDT) RNA Polymerase III Antibody, IgG 103(H) 0 - 19 Units 01/10/2025 9:[address] [facility] ([place]) Blood Venous blood specimen / Unknown Venipuncture / Unknown 01/07/2025 4:03 PM EDT 01/07/2025 4:[address] [facility]) - 01/10/2025 9:46 PM EDT INTERPRETIVE [...] antibodies associated with SSc, including centromere, Scl-70, U3-STILL TENDER, PM/Scl, or Th/To. Performed By: [facility] [address] [place] [address] Landscape Gardener: Martell Anton MD, PhD CLIA Number: [id number] May Matthew VIDEO ARCADE MANAGER LAB BLOOD ORDERABLES Final Result Performing Organization Address City/[facility]/ZIP Co de Phone Number [facility]) [address] [place] [address] * Centromere Antibody, IgG (01/07/2025 4:03 PM EDT) Pathologist [facility] Centromere Ab, IgG 0 0 - 40 AU/mL 01/11/2025 12:[address] [facility] ([place]) Blood Venous blood specimen / Unknown Venipuncture / Unknown 01/07/2025 4:03 PM EDT 01/07/2025 4:[address] [facility] ([place]) - 01/11/2025 12:33 AM EDT INTERPRETIVE [...] other antibodies associated with SSc, including Scl-70, U3-STILL TENDER, PM/Scl, or Th/To. Performed By: [facility] [address] [place] [address] Landscape Gardener: Martell Anton MD, PhD CLIA Number: [id number] may Matthew VIDEO ARCADE MANAGER LAB BLOOD ORDERABLES Final Result [facility] ([place]) [address] [place] [address] * Hepatitis C Antibody (01/07/2025 4:03 PM EDT) Hepatitis C Antibody Negative Negative 01/07/2025 7:32 PM EDT [facility] Blood Venous blood specimen / Unknown Venipuncture / Unknown 01/07/2025 4:03 PM EDT 01/07/2025 4:03 PM EDT may Matthew VIDEO ARCADE MANAGER LAB BLOOD ORDERABLES Final Result [facility] [address] [place] [address] * Anti-scleroderma antibody (01/07/2025 4:03 PM EDT) Pathologist [facility] SCLERODERMA (SCL-70) (DAVID) ANTIBODY, IGG 0 0 - 40 AU/mL 01/11/2025 12:33 AM EDT [facility] ([place]) Blood Venous blood specimen / Unknown Venipuncture / Unknown 01/07/2025 4:03 PM EDT 01/07/2025 4:03 PM EDT Narrative [facility] ([place]) - 01/11/2025 12:33 AM [...] testing for centromere, RNA polymerase III and U3-STILL TENDER, PM/Scl, or Th/To antibodies. Performed By: [facility] [address] [place] [address] Landscape Gardener: Martell Anton MD, PhD CLIA Number: [id number] May [facility] LAB BLOOD ORDERABLES Final Result [facility] ([place]) [address] [place] [address] * Hepatitis B Core Total Antibody IgG,IgM (01/07/2025 4:03 PM EDT) [facility] Hepatitis B Core Total Antibody IgG,IgM Negative Negative 01/07/2025 8:30 PM EDT [facility] Blood Venous blood specimen / Unknown Venipuncture / Unknown 01/07/2025 4:03 PM EDT 01/07/2025 4:03 PM EDT May [facility] BLOOD ORDERABLES Final Result [facility] [address] [place] [address] * Quantiferon TB Gold Plus (01/07/2025 4:03 PM EDT) [facility] Quantiferon TB Gold Plus Result Negative Negative 01/08/2025 7:53 PM EDT [facility] TB Nill Value 0.0403 IU/mL 01/08/2025 7:53 PM EDT [facility] TB Antigen 1 0.0249 IU/mL 01/08/2025 7:53 PM EDT [facility] TB Antigen 2 0.0152 IU/mL 01/08/2025 7:53 PM EDT [facility] TB Mitogen 9.9597 IU/mL 01/08/2025 7:53 PM EDT [facility] Blood Venous blood specimen / Unknown Venipuncture / Unknown 01/07/2025 4:03 PM EDT 01/07/2025 4:03 PM EDT Narrative [facility] - 01/08/2025 7:53 PM EDT Responses to the Mitogen positive control and occasionally to TB antigen can be above the assay range. For calculation purposes: IFN-gamma values > 10 IU/mL are handled as 10 IU/mL. [facility] ORDERAB[facility] Final Result Performing Organization Address [facility] Co de Phone Number [facility] [address] [place] [address] * Creatinine, Plasma (01/07/2025 4:03 PM EDT) Pathologist [facility] Creatinine, Plasma 0.68 0.60 - 1.10 mg/dL 01/07/2025 7:54 PM EDT [facility] eGFRcr 99.2 mL/min/1.7 3m*2 01/07/2025 7:54 PM EDT [facility] Comment:Reported eGFRcr in m L/min/1.73m2 is based the CKD-EPI 2020 equation that does not use a race coefficient. Blood Venous blood specimen / Unknown Venipuncture / Unknown 01/07/2025 4:03 PM EDT 01/07/2025 4:03 PM EDT May Matthew VIDEO ARCADE MANAGER LAB BLOOD ORDERABLES Final Result Performing Organization Address [facility]/ZIP Co de Phone Number [facility] [address] [place] [address] * (ABNORMAL) CBC and Differential (01/07/2025 4:03 PM EDT) WBC Count 9.02 3.70 - 10.30 10*3/uL LAB HEMATOLOGY METHOD 01/07/2025 7:08 PM EDT [facility] RBC Count 4.66 3.90 - 5.20 10*6/uL LAB HEMATOLOGY METHOD 01/07/2025 7:08 PM EDT [facility] HGB 14.5 11.2 - 15.7 g/dL LAB HEMATOLOGY METHOD 01/07/2025 7:08 PM EDT [facility] HCT 43.6 34.0 - 45.0 % LAB HEMATOLOGY METHOD 01/07/2025 7:08 PM EDT [facility] Platelet Count 269 155 - 369 10*3/uL LAB HEMATOLOGY METHOD 01/07/2025 7:08 PM EDT [facility] MCV 94 79 - 98 fL LAB HEMATOLOGY METHOD 01/07/2025 7:08 PM EDT [facility] MCH 31.1 26.0 - 32.0 pg LAB HEMATOLOGY METHOD 01/07/2025 7:08 PM EDT [facility] MCHC 33.3 30.7 - 35.5 g/dL LAB HEMATOLOGY METHOD 01/07/2025 7:08 PM EDT [facility] RDW 13.7 11.5 - 14.5 % LAB HEMATOLOGY METHOD 01/07/2025 7:08 PM EDT [facility] MPV 11.7 8.8 - 12.5 fL LAB HEMATOLOGY METHOD 01/07/2025 7:08 PM EDT [facility] nRBC 0.0 <=0.0 per 100 WBCs LAB HEMATOLOGY METHOD 01/07/2025 7:08 PM EDT [facility] Differential Type Automated LAB HEMATOLOGY METHOD 01/07/2025 7:08 PM EDT [facility] Neutrophils % 68 % LAB HEMATOLOGY METHOD 01/07/2025 7:08 PM EDT [facility] Lymphocytes % 21 % LAB HEMATOLOGY METHOD 01/07/2025 7:08 PM EDT [facility] Monocytes % 8 % LAB HEMATOLOGY METHOD 01/07/2025 7:08 PM EDT [facility] Eosinophils % 2 % LAB HEMATOLOGY METHOD 01/07/2025 7:08 PM EDT [facility] Basophils % 1 % LAB HEMATOLOGY METHOD 01/07/2025 7:08 PM EDT [facility] Immature Granulocytes % 0 % LAB HEMATOLOGY METHOD 01/07/2025 7:08 PM EDT [facility] Neutrophils Absolute 6.21(H) 1.60 - 6.10 10*3/uL LAB HEMATOLOGY METHOD 01/07/2025 7:08 PM EDT [facility] Lymphocytes Absolute 1.90 1.20 - 3.90 10*3/uL LAB HEMATOLOGY METHOD 01/07/2025 7:08 PM EDT [facility] Monocytes Absolute 0.70 0.30 - 0.90 10*3/uL LAB HEMATOLOGY METHOD 01/07/2025 7:08 PM EDT [facility] Eosinophils Absolute 0.14 0.00 - 0.50 10*3/uL LAB HEMATOLOGY METHOD 01/07/2025 7:08 PM EDT [facility] Basophils Absolute 0.05 0.00 - 0.10 10*3/uL LAB HEMATOLOGY METHOD 01/07/2025 7:08 PM EDT [facility] Immature Granulocytes Absolute 0.02 0.00 - 0.06 10*3/uL LAB HEMATOLOGY METHOD 01/07/2025 7:08 PM EDT [facility] Blood Venous blood specimen / Unknown Venipuncture / Unknown 01/07/2025 4:03 PM EDT 01/07/2025 4:03 PM EDT Narrative [facility] - 01/07/2025 7:08 PM EDT Therapeutic decision making should be based on absolute values, rather than percentages. May R [facility] LAB BLOOD ORDERABLES Final Result [facility] [address] [place] [address] * Rheumatoid Factor, Plasma (01/07/2025 4:03 PM EDT) Pathologist [facility] Rheumatoid Factor, Plasma <10 <14 IU/mL 01/07/2025 10:33 PM EDT [facility] Blood Venous blood specimen / Unknown Venipuncture / Unknown 01/07/2025 4:03 PM EDT 01/07/2025 4:03 PM EDT May [facility] VIDEO ARCADE MANAGER LAB BLOOD ORDERABLES Final Result [facility] [address] [place] [address] * (ABNORMAL) C3 Complement (01/07/2025 4:03 PM EDT) C3 Complement 174(H) 84 - 166 mg/dL 01/07/2025 10:33 PM EDT [facility] Blood Venous blood specimen / Unknown Venipuncture / Unknown 01/07/2025 4:03 PM EDT 01/07/2025 4:03 PM EDT May R Matthew VIDEO ARCADE MANAGER LAB BLOOD ORDERABLES Final Result Performing Organization Address [facility] Co de Phone Number [facility] [address] [place] [address] * C4 Complement (01/07/2025 4:03 PM EDT) C4 Complement 29 13 - 36 mg/dL 01/07/2025 10:33 PM EDT [facility] Blood Venous blood specimen / Unknown Venipuncture / Unknown 01/07/2025 4:03 PM EDT 01/07/2025 4:03 PM EDT May Matthew VIDEO ARCADE MANAGER LAB BLOOD ORDERABLES Final Result Performing Organization Address [facility] de Phone Number [facility] [address] [place] [address] * (ABNORMAL) C-Reactive Protein, Plasma (01/07/2025 4:03 PM EDT) [facility] CRP, Plasma 11.5(H) <=8.0 mg/L 01/07/2025 7:54 PM EDT [facility] Blood Venous blood specimen / Unknown Venipuncture / Unknown 01/07/2025 4:03 PM EDT 01/07/2025 4:03 PM EDT Narrative [facility] - 01/07/2025 7:54 PM EDT This CRP test is appropriate for assessment of infection, systemic inflammation and/or tissue injury. To assess cardiovascular disease risk order high sensitivity CRP (CRPH). May Matthew VIDEO ARCADE MANAGER LAB BLOOD ORDERABLES Final Result Performing Organization Address [facility] Co de Phone Number [facility] [address] [place] [address] * ANTI NUCLEAR AB (01/07/2025 4:03 PM EDT) SILVIA INTERPRETIVE COMMENT See Note 01/10/2025 5:13 PM EDT [facility] Anti Nuc Ab Screen <1:80 <1:80 01/10/2025 5:13 PM EDT [facility]) Blood Venous blood specimen / Unknown Venipuncture / Unknown 01/07/2025 4:03 PM EDT 01/07/2025 4:03 PM EDT Narrative [facility] ([place]) - 01/10/2025 5:13 PM [...] not necessarily rule out SARD. Performed By: [facility] [address] [place] [address] Landscape Gardener: Martell Anton MD, PhD CLIA Number: [id number] may Matthew VIDEO ARCADE MANAGER LAB BLOOD ORDERABLES Final Result [facility] ([place]) [address] [place] [address] * Hepatic Function Panel (01/07/2025 4:03 PM EDT) Pathologist [facility] Conjugated Bilirubin, Plasma <0.2 <=0.3 mg/dL 01/07/2025 7:54 PM EDT [facility] Alkaline Phosphatase, Plasma 90 46 - 142 U/L 01/07/2025 7:54 PM EDT [facility] Total Bilirubin, Plasma 0.2 0.2 - 1.1 mg/dL 01/07/2025 7:54 PM EDT [facility] Albumin, Plasma 3.8 3.5 - 5.2 g/dL 01/07/2025 7:54 PM EDT [facility] Total Protein 6.4 6.3 - 7.9 g/dL 01/07/2025 7:54 PM EDT [facility] ALT, Plasma 26 10 - 35 U/L 01/07/2025 7:54 PM EDT [facility] AST, Plasma 30 10 - 35 U/L 01/07/2025 7:54 PM EDT [facility] Blood Venous blood specimen / Unknown Venipuncture / Unknown 01/07/2025 4:03 PM EDT 01/07/2025 4:03 PM EDT May R [facility] BLOOD ORDERABLES Final Result [facility] [address] [place] [address] * HIV 1 & 2 Antibody/Antigen Screen (05/30/2023 1:32 PM EST) [facility] HIV 1 & 2 Antibody/Antigen Screen Non Reactive Non Reactive 05/30/2023 3:32 PM EST [facility] Comment:Screening for HIV 1 & 2 antibodies, and P24 antigen is NONREACTIVE. No confirmatory testing is required. Blood Venous blood specimen / Unknown Venipuncture / Unknown 05/30/2023 1:32 PM EST 05/30/2023 1:34 PM EST May Matthew [facility] BLOOD ORDERABLES Final Result [facility] [address] [place] [id number] from Last 3 Months or Most Recently Relevant to Health Maintenance Insurance [employer] CLAIM[employer] [facility] Care Teams Material Control Associate Relationship Specialty Start Date End Date Alma Gross APRN [address] [place] [address] PCP - General 05/08/23
--- OUTSIDE RECORDS SUMMARY | 2025-01-14 11:37 | XMS_ITS | Encounter Summary ---
Author Organization Healthcare Address [address] [place] [address] Care Team Providers Care Smoking Tobacco Packer Hand Name Role Phone GrossAlma sharma Cathy COURTNEY Primary Care Provider +1- [phone] Encounter Details Date Type Department Care Team [...] Info) Description 02/06/2025 2:00 PM EDT Appointment [facility] [address] [place] [address] 05/18/2025 2:30 PM EST Office Visit [facility] [address], [address] [place] [address] Matthew, May R, LINDERMAN OPERATOR [address] [place] [address] documented as of this encounter [...] documented as of this encounter Care Teams Smoking Tobacco Packer Hand Relationship Specialty Start Date End Date Alma Gross APRN [address] [place] [address] PCP - General 05/08/23 documented as of this encounter
--- OUTSIDE RECORDS SUMMARY | 2025-01-14 11:37 | XMS_ITS | Encounter Summary ---
Author Organization [facility] Address [address] [place] [address] Care Team Providers Care Structures Mechanic Name Role Phone GrossAlma Cathy COURTNEY Primary Care Provider +1- [phone] Reason for Visit * Reason Onset Date Comments [facility] New Start 01/07/2025 Encounter Details Date Type Department Care Team (Late st Contact Info) Description 01/07/2025 Telephone [facility] [address], [address] [place] [address] Nayeli Izaguirre, PharmD [facility] New [...] Info) Description 02/06/2025 2:00 PM EDT Appointment [facility] [address] [place] [address] 05/18/2025 2:30 PM EST Office [facility] [address], [address] [place] [address] Cristel Castro R, CIGARETTE MAKING EXAMINER [address] [place] [address] documented as of this encounter Visit Diagnoses Diagnosis Psoriatic arthritis (CMS/[facility])- Primary Psoriatic arthropathy documented in this encounter Additional Health Concerns Assessment Noted Time PHQ-9 Depression Total Score: 0 01/08/20 2:27 PM EDT A fall risk assessment has been complete d for the patient 01/07/2025 2:27 PM EDT A Body Mass Index follow-up plan has been documented for the patient 01/07/2025 3:27 PM EDT documented as of this encounter Care Teams Structures Mechanic Relationship Specialty Start Date End Date Alma Gross APRN [address] [place] [address] PCP - General 05/08/23 documented as of this encounter
--- OUTSIDE RECORDS SUMMARY | 2025-01-14 11:37 | XMS_ITS | Encounter Summary ---
[facility] Address [address] [place] [id number] Care Team Providers Care Manager Talent Management Name Role Phone Alma Gross APRN Primary [...] on filedocumented in this encounter Care Teams Manager Talent Management Relationship Specialty Start Date End Date Alma Gross APRN [address] [place] [address] [facility] [address] PCP - General Internal Medicine 07/01/24 documented as of this encounter
--- OUTSIDE RECORDS SUMMARY | 2025-01-14 11:37 | XMS_ITS | Encounter Summary ---
[facility] [address] [place] [address] Care Team Providers Care Client Experience Specialist Name Role Phone Alma Gross APRN Primary Care Provider + [phone] Encounter Details Date Type Department Care Team (Late st Contact Info) Description 12/08/2024 Results Follow-Up [facility] [address] [facility] [address] [place] [phone] Jose Salmon MD [address] [facility] [address] [place] [address] Social History Tobacco Use Types Packs/Day Years [...] on filedocumented in this encounter Care Teams Client Experience Specialist Relationship Specialty Start Date End Date Alma Gross APRN [address] [place] [address] [place] [address] PCP - General Internal Medicine 07/01/24 documented as of this encounter
--- OUTSIDE RECORDS SUMMARY | 2025-01-14 11:37 | XMS_ITS | Clinical Summary ---
Author Organization [facility] Address [address] [place] [address] Care Team Providers Care Kitchen Work Supervisor Name Role Phone Alma Gross APRN Primary Care Provider [phone] Allergies No known active allergies Medications albuterol [...] Description 12/09/2024 1:30 PM EDT Office Visit [facility] [address] Jose Salmon MD Chronic bilateral low back pain without sciatica (Primary Dx); Spondylolisthesis of lumbar region; Chronic neck pain; History of fusion of cervical spine 12/09/2024 Travel 12/09/2024 Telephone [facility] [address] [address] Jose Salmon MD 12/08/2024 Results Follow-Up [facility] [address] [address] Jose Salmon MD 12/02/2024 Patient rounding ([facility] only) [facility] [address] [address] Yumiko Petit MA 11/28/2024 11:00 AM EDT Office Visit [facility] NEUROS[facility] [address] [place] [phone] Jose Salmon MD Chronic neck pain (Primary Dx); History of fusion of cervical spine; Chronic bilateral low back pain without sciatica; Spondylolisthesis of lumbar region 11/28/2024 Travel 11/04/2024 Telephone [facility] NE[facility] [address] [place] [phone] Jose Salmon MD 11/04/2024 [facility] NEUROSURGERY [address] [place] [phone] Jose Salmon MD 11/04/2024 Telephone [facility] NEUR[facility] [address] [place] [phone] Jose Salmon MD from Last 3 Months [...] with no dictation required. Jose Salmon MD [facility] MRI ORDERABLES Fin al Result * MRI Lumbar Spine Without Contrast (12/04/2024) Anatomical Region Laterality Modality Spine, L-spine N/A Magnetic Resonan ce Jose Salmon MD [facility] MRI ORDERABLES Fin al Result from Last 3 Months Insurance [employer] Member Subscriber Plan / Payer (Ef fective 2024-Present) Name:Reed Scott Relation to Subscriber:Spouse Name:ZULEIMA SCOTT Date of :1961 Address: [address] [place] [address] [place] [address] Payer ID:[id number] (NAIC) Type:Not on file Address: [place] [id number] Care Teams Kitchen Work Supervisor Relationship Specialty Start Date End Date Alma Gross APRN [facility] [place] [address] [place] [phone] PCP - General Internal Medicine 07/01/24
== END 2025-01-12 23:59 | disposition home or self-care (01) ==
LOC: LAB.DROPOF 01-14 11:34
PROVIDERS: PCP Nurse Practitioner Family; Visit Provider Nurse Practitioner Family
DX: J34.89 Other specified disorders of nose and nasal sinuses (principal)
CPT/HCPCS: 87631

== ENCOUNTER 2025-01-14 09:55 | Outpatient (CLI) | payer OTHER, SELFPAY ==
--- OUTSIDE RECORDS SUMMARY | 2024-11-28 11:00 | XMS_ITS | Encounter Summary ---
[facility] Address [address] [place] [address] Care Team Providers Care General Maintenance Helper Name Role Phone Alma Gross APRN Primary Care Provider [phone] Reason for Referral * MRI/CAT/PET Scan (Routine) - Closed Specialty Diagnoses / Procedures Referred By Contac t Referred To Contact Diagnoses Chronic bilateral low back pain without sciatica Spondylolisthesis of lumbar region Procedures MRI Lumbar Spine Without Contrast Jose Salmon MD [facility] [employer] [place] [address] Phone: tel: fax: [facility] - OUTPT [facility]ICAL [facility] [address] [facility] [address] [place] [address] Phone: tel: fax: Referral ID Status Reason Start Date Expiration Date Visits Re quested Visits Authorized [id number] Closed 11/28/2024 02/27/2026 1 1 * Physical Therapy (Routine) - Closed Specialty Diagnoses / Procedures Referred By Contac t Referred To Contact Physical Therapy Diagnoses Chronic neck pain History of fusion of cervical spine Chronic bilateral low back pain without sciatica Spondylolisthesis of lumbar region Procedures IA OFFICE/OUTPATIENT NEW MODERATE MDM 45 MINUTES Jose Salmon MD [facility] [employer] [address] [place] [address] Phone: tel: fax: [facility] - OUTPT PHYSICAL THERAPY [address] [place] [address] Phone: tel: fax: Referral ID Status Reason Start Date Expiration Date V isits Requested Visits Authorized [id number] Closed Specialty Services Required 11/28/2024 02/27/2026 1 1 Reason for Visit * Reason Comments Neck Pain Getting better Back Pain Worse when standing Numbness Fall Being for June Encounter Details Date Type Department Care Team (Late st Contact Info) Description 11/28/2024 11:00 AM EDT Office Visit [facility] [address] [phone] Jose Salmon MD [address] [facility] [address] [place], [place] [id number] Chronic neck pain (Primary Dx); History of fusion of cervical spine; Chronic bilateral low back pain without sciatica; Spondylolisthesis of lumbar region Social History Tobacco Use Types Packs/Day Years Used Date Smoking Tobacco: Every Day Cigarettes Comments Unknown Sex and Gender Information Value Date Recorded Sex Assigned at Not on file Legal Sex Female 9:07 AM EDT Gender Identity Not on file Sexual Orientation Straight 11/27/2024 11 :52 AM EDT documented as of this encounter Last Filed Vital Signs Vital Sign Reading Time Taken Comments Blood Pressure 126/78 11/28/2024 10:23 AM EDT Pulse - - Temperature - - Respiratory Rate 20 11/28/2024 10:23 AM EDT Oxygen Saturation - - Inhaled Oxygen Concentration - - Weight 104 kg (230 lb) 11/28/2024 10:23 AM EDT Height 175.3 cm (5' 9 ) 11/28/2024 10:23 AM EDT Body Mass Index 33.97 11/28/2024 10:23 AM EDT documented in this encounter Progress Notes * Dominic Fry MA - 11/28/2024 11:00 AM EDTAddended by: DOMINIC FRY on: 11/28/2024 10:52 AM Modules accepted: Orders * Jose Salmon MD - 11/28/2024 11:00 AM EDT Images from the original note were not included. Subjective History of Present Illness: Reed Coughlin is a 59 y.o. female is being seen for consultation today at the request of Carol Gross APRN for evaluation of her neck although she mentions that she is having more difficulty with her low back today. I did surgery in [place] in 2007 for an anterior cervical discectomy and fusion at C5-C6. She has done remarkably well following that surgery but has had intermittent back problems. Twice last year she had episodes of accelerated neck pain the second episode did radiate into the right upper extremity some but it resolved after conservative treatment with cervical neck injections. Since the injection she has done much better with the neck but her low back has flared up. She suspects this is related to a lot of the knee problems she has had since 2022 but she denies any specific sciatic distribution pain. She occasionally gets some pain into the left hip area but most of her pain is in the low back. She says today is a better day than most. Shedenies any bowel and bladder symptoms History of Present Illness Tobacco Use: High Risk (11/28/2024) Patient History Smoking Tobacco Use: Every Day Smokeless Tobacco Use: Unknown Passive Exposure: Not on file The following portions of the patient's history were reviewed and updated as appropriate: allergies, current medications, past family history, past medical history, past social history, past surgicalhistory and problem list. Review of Systems Constitutional: Negative for fever. Musculoskeletal: Positive for back pain, gait problem, neck pain and neck stiffness. Neurological: Positive for weakness and numbness. All other systems reviewed and are negative. Objective Vitals: 11/28/24 1023 BP: 126/78 BP Location: Left arm Patient Position: Sitting Cuff Size: Adult Resp: 20 Weight: 104 kg (230 lb) Height: 175.3 cm (69 ) PainSc: 0-No pain Body mass index is 33.97 kg/m??. Physical Exam Neurological Exam Physical Exam: CONSTITUTIONAL: This 59 year old female appears well developed, overweight and in no acute distress. HEAD & FACE: the head and face are symmetric, normocephalic and atraumatic. EYES: Inspection of the conjunctivae and lids reveals no swelling, erythema or discharge. Pupils are round, equal and reactive to light and there is no scleral icterus. EARS, NOSE, MOUTH & THROAT: On inspection, the ears and nose are within normal limits. NECK: the neck is supple and symmetric. The trachea is midline with no masses. PULMONARY: Respiratory effort is normal with no increased work of breathing or signs of respiratorydistress. CARDIOVASCULAR: Examination of the extremities shows no edema or varicosities. MUSCULOSKELETAL: Gait and station are slightly wide-based but no lumbago. The spine has no tenderness in the midline nor SI joints. SKIN: The skin is warm, dry and intact NEUROLOGIC: Cranial Nerves 2-12 intact Normal motor strength noted. Muscle bulk and tone are normal. Sensory exam is normal to fine touch to confrontational testing bilaterally Reflexes on the right side demonstrates 1/4 Triceps Reflex, 1/4 Biceps Reflex, 1/4 Brachioradialis Reflex, 1/4 Knee Jerk Reflex, 0/4 Ankle Jerk Reflex and no ankle clonus on the right. Reflexes on the left side demonstrates 1/4 Triceps Reflex, 1/4 Biceps Reflex, 1/4 Brachioradialis Reflex, 1/4 Knee Jerk Reflex, 0/4 Ankle Jerk Reflex and no ankle clonus on the left. Superficial/Primitive Reflexes: primitive reflexes were absent. Hernandez's, Babinski, and Clonus signs all negative. No coordination deficit observed. Radicular testing showed a negative Shukri (EMERALD) test and negative straight leg raise. She also has a negative Spurling's maneuver today. Cortical function is intact and without deficits. Speech is normal. PSYCHIATRIC: oriented to person, place and time. Patient's mood and affect are normal. Assessment & Plan Independent Review of Radiographic Studies: I personally reviewed the images from the following studies. MRI done at [facility] on May 28, 2024 demonstrates multilevel cervical degenerative change most obvious at C3-C4, C4-C5 and C6-C7. At C3-C4 there is left-sided canal narrowing with high-grade bilateral neuroforaminal narrowing. At C4-C5 discussed by changes with right greater than left neuroforaminal narrowing. At C5-C6 levels been fused no significant canal or neuroforaminal narrowing. At C6-C7 again discogenic changes seen with bilateral neuroforaminal narrowing but no cord compression. MRI thoracic spine was done at [facility] and revealed multilevel degenerative change of the thoracic disks most obvious at T7-T8 where there is a moderate central disc protrusion andcontact of the anterior thecal sac but no cord compression, signal change in the cord or disc herniation. Medical Decision Making: Patient has chronic neck and low back pain status post anterior cervical discectomy and fusion at C5-C6 she has some spondylitic change above and below her cervical fusion with some canal narrowing at C3-C4 and C4-C5 but she does not demonstrate any specific radicular complaints today. In her lumbar spine she has a report in the system from 18 months ago of a lumbar MRI suggesting minimal spondylolisthesis at L4-L5 and a slight neuroforaminal narrowing due to spondylitic change to the left at L3-L4. Given her chronicity of low back pain without specific treatment I have recommended physical therapy to see if she can get relief from that perspective but we will need an updated MRI to see if her deformity has progressed or if there are other issues that are contributing to her pattern of low back pain. I suspect that she will likely be a candidate for interventional pain management techniques since she responded so favorably to the cervical injections 6 months ago. Return in about 2 weeks (around 12/12/2024) for review of completed images. Diagnoses and all orders for this visit: 1. Chronic neck pain (Primary) - Ambulatory Referral to Physical Therapy for Evaluation & Treatment 2. History of fusion of cervical spine - Ambulatory Referral to Physical Therapy for Evaluation & Treatment 3. Chronic bilateral low back pain without sciatica - Ambulatory Referral to Physical Therapy for Evaluation & Treatment - MRI Lumbar Spine Without Contrast; Future 4. Spondylolisthesis of lumbar region - Ambulatory Referral to Physical Therapy for Evaluation & Treatment - MRI Lumbar Spine Without Contrast; Future Jose Salmon MD FACS [facility] Neurological Surgery documented in this encounter Plan of Treatment Scheduled Referrals Name Type Priority Associated Diagnoses Order Schedule Ambulatory Referral to Physical Therapy for Evaluation & Treatment Outpatient Referral Routine Chronic neck pain History of fusion of cervical spine Chronic bilateral low back pain without sciatica Spondylolisthesis of lumbar region Ordered: 11/28/2024 documented as of this encounter Results * MRI Lumbar Spine Without Contrast (12/04/2024) Anatomical Region Laterality Modality Spine, L-spine N/A Magnetic Resonan ce Jose Salmon MD IMG MRI ORDERABLES Fin al Result documented in this encounter Visit Diagnoses Diagnosis Chronic neck pain- Primary Cervicalgia History of fusion of cervical spine Arthrodesis status Chronic bilateral low back pain without sciatica Spondylolisthesis of lumbar region documented in this encounter Care Teams General Maintenance Helper Relationship Specialty Start Date End Date Alma Gross APRN [facility] [place] [address] PCP - General Internal Medicine 07/01/24 documented as of this encounter
--- OUTSIDE RECORDS SUMMARY | 2024-12-09 13:30 | XMS_ITS | Encounter Summary ---
[facility] [address] [place] [address] Care Team Providers Care Rubber Stamps And Dies Supervisor Name Role Phone Alma Gross APRN Primary Care Provider [phone] Reason for Referral * Pain Management (Routine) - Pending Review Specialty Diagnoses / Procedures Referred By Contac t Referred To Contact Pain Medicine Diagnoses Chronic bilateral low back pain without sciatica Spondylolisthesis of lumbar region Procedures OK OFFICE/OUTPATIENT NEW MODERATE MDM 45 MINUTES Jose Salmon MD [address] [place] [address] Phone: tel: fax: Gavin Hernandez MD [address] [facility] [address] [place] [address] Phone: tel: fax: Referral ID Status Reason Start Date Expiration Date Visits Requested Visits Authorized [id number] Pending Review Specialty Services Required 12/09/2024 03/10/2026 1 1 Reason for Visit * Reason Comments Follow-up Encounter Details Date Type Department Care Team (Late st Contact Info) Description 12/09/2024 1:30 PM EDT Office Visit [facility] NEUROSURGERY [address] [place] [phone] Jose Salmon MD [address] [facility] [address] [place] [address] Chronic bilateral low back pain without sciatica [...] new MRI L-spine done on 05/28/2024 @ [facility]. She has not had the physical [...] spine done on November 04, 2024 at [facility] reveals some mild to moderate degenerative change throughout the thoracic spine without canal stenosis or significant neuroforaminal narrowing. MRI of the lumbar spine done on December 04, 2024 at [facility] in [facility] demonstrates multilevel degenerative changes most [...] with physical therapy and follow-up with her oil painter Dr. Hernandez in [facility]. If she develops progressive low [...] fusion of cervical spine Jose Salmon MD [facility] Neurological Surgery documented in this encounter Plan of Treatment Not on file documented as of this encounter Visit Diagnoses Diagnosis Chronic bilateral low back pain without sciatica- Primary Spondylolisthesis of lumbar region Chronic neck pain Cervicalgia History of fusion of cervical spine Arthrodesis status documented in this encounter Care Teams Rubber Stamps And Dies Supervisor Relationship Specialty Start Date End Date Alma Gross APRN [address] [place] [id number] PCP - General Internal Medicine 07/01/24 documented as of this encounter
--- OUTSIDE RECORDS SUMMARY | 2025-01-07 14:30 | XMS_ITS | Encounter Summary ---
Author Organization Address [address] [place] [address] Care Team Providers Care Plastics Design Engineer Name Role Phone Alma Gross APRN Primary Care Provider [phone]- [phone] Reason for Referral * Imaging (Routine) - Pending Review Specialty Diagnoses / Procedures Referred By Contac t Referred To Contact Radiology Diagnoses Shortness of breath Procedures CT Chest wo IV Contrast May [address] [facility] [address] [place] [address] Phone: tel: fax: Referral ID Status Reason Start Date Expiration Date V isits Requested Visits Authorized [id number] Pending Review 01/07/2025 07/09/2026 1 1 Reason for Visit * Reason Comments Follow-up Psoriatic arthritis (CMS/HCC) Encounter Details Date Type Department Care Team (Late st Contact Info) Description 01/07/2025 2:30 PM EDT [facility] Visit [facility] [address] [place] [address] May [address] [facility] [address] [place] [address] Psoriatic arthritis (CMS/HCC) (Primary Dx); [...] * Progress Notes - Matthew, May R, SUPERVISOR HISTOLOGY - 01/07/2025 2:30 PM EDT Subjective Patient [...] Neurosurgery for spine pain. He is in [facility]. Getting an injection in each SI [...] No hx of alcohol abuse. 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 [place] The following portions of the chart were reviewed this encounter and updated as appropriate: Past Medical History: Diagnosis Date Achilles tendon tear Asthma Bunion Carpal tunnel syndrome COPD (chronic obstructive pulmonary disease) ([facility]) Fallen arches Gallstone Herniated cervical disc Hypertension [...] file Social Connections: Unknown (03/02/2023) Received from [facility] Family and Community Support Help with Day-to-Day Activities: Not on file Lonely or Isolated: Not on file Intimate Partner Violence: Unknown (03/02/2023) Received from [facility] Abuse Screen Unsafe at Home or Work/School: Not on file Feels Threatened by Someone?: Not on file Does Anyone Keep You from Contacting Others or Doint Things Outside the Home?: Not on file Physical Sign of Abuse Present: Not on file Housing Stability: Unknown (03/02/2023) Received from [facility] Housing Stability Current Living Arrangements: Not [...] is currently [facility] Go to the Rheumatology activity andcomplete the [facility] joint exam. Joint Exam 01/07/2025 No joint [...] ? Raynaud's on feet noticed recently +GERD Lueders criteria + family hx + nail dystrophy [...] of chronic medical conditions. Treatment optionswere discussed, [id number] 5. 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 As a result, errors may occur. When identified, these straddle truck driver errors are corrected, but while every attempt is made to prevent/correct these, errors may still exist. , documented in this encounter Plan of Treatment Upcoming Encounters Date Type Department Care Team (Late st Contact Info) Description 02/06/2025 2:00 PM EDT Appointment [facility] [address] [place] [address] 05/18/2025 2:30 PM EST Office Visit [facility] Medicine Specialties [address] [place] [address] MatthewMay R, SUPERVISOR HISTOLOGY [address] [place] [address] Scheduled Orders Name Type Priority Associated Diagnoses Orde r Schedule CT Chest wo IV Contrast Imaging Routine Shortness of breath Expected: 02/07/2025 (Approximate), Expires: 07/11/2026 documented as of this encounter Results * Rheumatoid Factor, Plasma (01/07/2025 4:03 PM EDT) Rheumatoid Factor, Plasma <10 <14 IU/mL 01/07/2025 10:[address] [facility] Blood Venous blood specimen / Unknown Venipuncture / Unknown 01/07/2025 4:03 PM EDT 01/07/2025 4:03 PM EDT May Matthew SUPERVISOR HISTOLOGY LAB BLOOD ORDERABLES Final Result [facility] [address] [place] [address] * Cryoglobulin, Serum (SO) (01/07/2025 4:03 PM EDT) Cryoglobulin, S Negative Negative %ppt 01/12/2025 10:33 PM EDT [facility] ([place]) Comment: This test is negative at 24 hours. All samples are held and reviewed again at 7 days. If delayed precipitation occurs after 7 days, Immunofixation will be performed and an additional report will follow. Test Performed by: [facility] [address] [place] [address] Can Labeler: Barbara Easley Ph.D.; CLIA# [id number] Blood Venous blood specimen / Unknown Venipuncture / Unknown 01/07/2025 4:03 PM EDT 01/07/2025 4:03 PM EDT may Matthew SUPERVISOR HISTOLOGY LAB REF LAB BLOOD AND FLUID ORD Final Result [facility] ([place]) * ANTI NUCLEAR AB (01/07/2025 4:03 PM EDT) SILVIA INTERPRETIVE COMMENT See Note 01/10/2025 5:13 PM EDT [facility] ([place]) Anti Nuc Ab Screen <1:80 <1:80 01/10/2025 5:13 PM EDT [facility] ([place]) Blood Venous blood specimen / Unknown Venipuncture / Unknown 01/07/2025 4:03 PM EDT 01/07/2025 4:03 PM EDT Narrative [facility] ([place]) - 01/10/2025 5:13 PM EDT [...] not necessarily rule out SARD. Performed By: [facility] [address] [place] [address] Import Specialist: Martell Anton MD, PhD CLIA Number: [id number] May Matthew SUPERVISOR HISTOLOGY LAB BLOOD ORDERABLES Final Result Performing Organization Address City/[facility]/ZIP Co de Phone Number [facility] ([place]) [address] [place] [address] * C4 Complement (01/07/2025 4:03 PM EDT) C4 Complement 29 13 - 36 mg/dL 01/07/2025 10:[address] [facility] Blood Venous blood specimen / Unknown Venipuncture / Unknown 01/07/2025 4:03 PM EDT 01/07/2025 4:03 PM EDT May Matthew SUPERVISOR HISTOLOGY LAB BLOOD ORDERABLES Final Result Performing Organization Address City/[facility]/ZIP Co de Phone Number [facility] [address] [place] [address] * (ABNORMAL) C3 Complement (01/07/2025 4:03 PM EDT) C3 Complement 174(H) 84 - 166 mg/dL 01/07/2025 10:[address] [facility] Blood Venous blood specimen / Unknown Venipuncture / Unknown 01/07/2025 4:03 PM EDT 01/07/2025 4:03 PM EDT May Matthew SUPERVISOR HISTOLOGY LAB BLOOD ORDERABLES Final Result [facility] [address] [place] [address] * (ABNORMAL) C-Reactive Protein, Plasma (01/07/2025 4:03 PM EDT) CRP, Plasma 11.5(H) <=8.0 mg/L 01/07/2025 7:[address] [facility] Blood Venous blood specimen / Unknown Venipuncture / Unknown 01/07/2025 4:03 PM EDT 01/07/2025 4:[address] [facility] - 01/07/2025 7:54 PM EDT This CRP test is appropriate for assessment of infection, systemic inflammation and/or tissue injury. To assess cardiovascular disease risk order high sensitivity CRP (CRPH). us May Matthew SUPERVISOR HISTOLOGY LAB BLOOD ORDERABLES Final Result Performing Organization Address City/[facility]/ZIP Co de Phone Number [facility] [address] [place] [address] * Hepatic Function Panel (01/07/2025 4:03 PM EDT) Conjugated Bilirubin, Plasma <0.2 <=0.3 mg/dL 01/07/2025 7:[address] [facility] Alkaline Phosphatase, Plasma 90 46 - 142 U/L 01/07/2025 7:[address] [facility] Total Bilirubin, Plasma 0.2 0.2 - 1.1 mg/dL 01/07/2025 7:[address] [facility] Albumin, Plasma 3.8 3.5 - 5.2 g/dL 01/07/2025 7:[address] [facility] Total Protein 6.4 6.3 - 7.9 g/dL 01/07/2025 7:[address] [facility] ALT, Plasma 26 10 - 35 U/L 01/07/2025 7:[address] [facility] AST, Plasma 30 10 - 35 U/L 01/07/2025 7:[address] [facility] Blood Venous blood specimen / Unknown Venipuncture / Unknown 01/07/2025 4:03 PM EDT 01/07/2025 4:03 PM EDT may Matthew SUPERVISOR HISTOLOGY LAB BLOOD ORDERABLES Final Result Performing Organization Address City/[facility]/ZIP Co de Phone Number [facility] [address] [place] [address] * Creatinine, Plasma (01/07/2025 4:03 PM EDT) Creatinine, Plasma 0.68 0.60 - 1.10 mg/dL 01/07/2025 7:[address] [facility] eGFRcr 99.2 mL/min/1.7 3m*2 01/07/2025 7:[address] [facility] Comment:Reported eGFRcr in m L/min/1.73m2 is based the CKD-EPI 2020 equation that does not use a race coefficient. Blood Venous blood specimen / Unknown Venipuncture / Unknown 01/07/2025 4:03 PM EDT 01/07/2025 4:03 PM EDT may Matthew ROBERTSONN LAB BLOOD ORDERABLES Final Result [facility] [address] [place] [address] * (ABNORMAL) CBC and Differential (01/07/2025 4:03 PM EDT) Pathologist [facility] WBC Count 9.02 3.70 - 10.30 10*3/uL LAB HEMATOLOGY METHOD 01/07/2025 7:[address] [facility] RBC Count 4.66 3.90 - 5.20 10*6/uL LAB HEMATOLOGY METHOD 01/07/2025 7:[address] [facility] HGB 14.5 11.2 - 15.7 g/dL LAB HEMATOLOGY METHOD 01/07/2025 7:[address] [facility] HCT 43.6 34.0 - 45.0 % LAB HEMATOLOGY METHOD 01/07/2025 7:[address] [facility] Platelet Count 269 155 - 369 10*3/uL LAB HEMATOLOGY METHOD 01/07/2025 7:[address] [facility] MCV 94 79 - 98 fL LAB HEMATOLOGY METHOD 01/07/2025 7:[address] [facility] MCH 31.1 26.0 - 32.0 pg LAB HEMATOLOGY METHOD 01/07/2025 7:[address] [facility] MCHC 33.3 30.7 - 35.5 g/dL LAB HEMATOLOGY METHOD 01/07/2025 7:[address] [facility] RDW 13.7 11.5 - 14.5 % LAB HEMATOLOGY METHOD 01/07/2025 7:[address] [facility] MPV 11.7 8.8 - 12.5 fL LAB HEMATOLOGY METHOD 01/07/2025 7:[address] [facility] nRBC 0.0 <=0.0 per 100 WBCs LAB HEMATOLOGY METHOD 01/07/2025 7:[address] [facility] Differential Type Automated LAB HEMATOLOGY METHOD 01/07/2025 7:[address] [facility] Neutrophils % 68 % LAB HEMATOLOGY METHOD 01/07/2025 7:[address] [facility] Lymphocytes % 21 % LAB HEMATOLOGY METHOD 01/07/2025 7:[address] [facility] Monocytes % 8 % LAB HEMATOLOGY METHOD 01/07/2025 7:[address] [facility] Eosinophils % 2 % LAB HEMATOLOGY METHOD 01/07/2025 7:[address] [facility] Basophils % 1 % LAB HEMATOLOGY METHOD 01/07/2025 7:[address] [facility] Immature Granulocytes % 0 % LAB HEMATOLOGY METHOD 01/07/2025 7:[address] [facility] Neutrophils Absolute 6.21(H) 1.60 - 6.10 10*3/uL LAB HEMATOLOGY METHOD 01/07/2025 7:[address] [facility] Lymphocytes Absolute 1.90 1.20 - 3.90 10*3/uL LAB HEMATOLOGY METHOD 01/07/2025 7:[address] [facility] Monocytes Absolute 0.70 0.30 - 0.90 10*3/uL LAB HEMATOLOGY METHOD 01/07/2025 7:[address] [facility] Eosinophils Absolute 0.14 0.00 - 0.50 10*3/uL LAB HEMATOLOGY METHOD 01/07/2025 7:[address] [facility] Basophils Absolute 0.05 0.00 - 0.10 10*3/uL LAB HEMATOLOGY METHOD 01/07/2025 7:[address] [facility] Immature Granulocytes Absolute 0.02 0.00 - 0.06 10*3/uL LAB HEMATOLOGY METHOD 01/07/2025 7:[address] [facility] Blood Venous blood specimen / Unknown Venipuncture / Unknown 01/07/2025 4:03 PM EDT 01/07/2025 4:[address] [facility] - 01/07/2025 7:08 PM EDT Therapeutic decision making should be based on absolute values, rather than percentages. may Matthew SUPERVISOR HISTOLOGY LAB BLOOD ORDERABLES Final Result [facility] [address] [place] [address] * (ABNORMAL) RNA Polymerase III Antibody, IgG (01/07/2025 4:03 PM EDT) RNA Polymerase III Antibody, IgG 103(H) 0 - 19 Units 01/10/2025 9:46 PM EDT [facility] ([facility]) Blood Venous blood specimen / Unknown Venipuncture [...] antibodies associated with SSc, including centromere, Scl-70, U3-CAR INSTALLATIONS SUPERVISOR, PM/Scl, or Th/To. Performed By: [facility] [address] [place] [id number] Import Specialist: Martell Anton MD, PhD CLIA Number: [id number] may Matthew SUPERVISOR HISTOLOGY LAB BLOOD ORDERABLES Final Result [facility] [employer] [facility]) [address] [place] [address] * Centromere Antibody, IgG (01/07/2025 4:03 PM EDT) Centromere Ab, IgG 0 0 - 40 AU/mL 01/11/2025 12:33 AM EDT [facility] [employer] ([place]) Blood Venous blood specimen / Unknown Venipuncture / Unknown 01/07/2025 4:03 PM EDT 01/07/2025 4:03 PM EDT Narrative [facility] [employer] [facility]) - 01/11/2025 12:33 AM EDT INTERPRETIVE [...] other antibodies associated with SSc, including Scl-70, U3-CAR INSTALLATIONS SUPERVISOR, PM/Scl, or Th/To. Performed By: [facility] [address] [place] [address] Import Specialist: Martell Anton MD, PhD CLIA Number: [id number] may Matthew SUPERVISOR HISTOLOGY LAB BLOOD ORDERABLES Final Result [facility] ([place]) [address] [place] [address] * Anti-scleroderma antibody (01/07/2025 4:03 PM EDT) SCLERODERMA (SCL-70) ([place]) ANTIBODY, IGG 0 0 - 40 AU/mL 01/11/2025 12:33 AM EDT [facility] ([place]) Blood Venous blood specimen / Unknown Venipuncture / Unknown 01/07/2025 4:03 PM EDT 01/07/2025 4:03 PM EDT Narrative [facility] ([place]) - 01/11/2025 12:33 AM EDT [...] testing for centromere, RNA polymerase III and U3-CAR INSTALLATIONS SUPERVISOR, PM/Scl, or Th/To antibodies. Performed By: [facility] [address] [place] [address] Import Specialist: Martell Anton MD, PhD CLIA Number: [id number] May Matthew SUPERVISOR HISTOLOGY LAB BLOOD ORDERABLES Final Result Performing Organization Address City/[facility]/ZIP Co de Phone Number [facility] ([place]) [address] [place] [address] * Quantiferon TB Gold Plus (01/07/2025 4:03 PM EDT) [facility] Quantiferon TB Gold Plus Result Negative Negative 01/08/2025 7:[address] [facility] TB Nill Value 0.0403 IU/mL 01/08/2025 7:[address] [facility] TB Antigen 1 0.0249 IU/mL 01/08/2025 7:[address] [facility] TB Antigen 2 0.0152 IU/mL 01/08/2025 7:[address] [facility] TB Mitogen 9.9597 IU/mL 01/08/2025 7:[address] [facility] Blood Venous blood specimen / Unknown Venipuncture / Unknown 01/07/2025 4:03 PM EDT 01/07/2025 4:[address] [facility] - 01/08/2025 7:53 PM EDT Responses to the Mitogen positive control and occasionally to TB antigen can be above the assay range. For calculation purposes: IFN-gamma values > 10 IU/mL are handled as 10 IU/mL. May Matthew SUPERVISOR HISTOLOGY LAB BLOOD ORDERABLES Final Result [facility] [address] [place] [address] * Hepatitis C Antibody (01/07/2025 4:03 PM EDT) Pathologist [facility] Hepatitis C Antibody Negative Negative 01/07/2025 7:[address] [facility] Blood Venous blood specimen / Unknown Venipuncture / Unknown 01/07/2025 4:03 PM EDT 01/07/2025 4:03 PM EDT us May R Matthew SUPERVISOR HISTOLOGY LAB BLOOD ORDERABLES Final Result Performing Organization Address City/[facility]/ZIP Co de Phone Number [facility] [address] [place] [address] * Hepatitis B Core Total Antibody IgG,IgM (01/07/2025 4:03 PM EDT) Hepatitis B Core Total Antibody IgG,IgM Negative Negative 01/07/2025 8:[address] [facility] Blood Venous blood specimen / Unknown Venipuncture / Unknown 01/07/2025 4:03 PM EDT 01/07/2025 4:03 PM EDT us May Matthew SUPERVISOR HISTOLOGY LAB BLOOD ORDERABLES Final Result Performing Organization Address City/[facility] Co de Phone Number [facility] [address] [place] [address] documented in this encounter Visit Diagnoses Diagnosis [...] documented as of this encounter Care Teams Plastics Design Engineer Relationship Specialty Start Date End Date Alma Gross APRN [address] [place] [address] PCP - General 05/08/23 documented as of this encounter
--- NOTE | 2025-01-14 09:56 | XR_ITS ---
FINAL REPORT TECHNIQUE: Right shoulder 2 views CLINICAL HISTORY: right shoulder pain COMPARISON: None FINDINGS: 2 views of the right shoulder were obtained. There is no fracture or dislocation. Mild acromioclavicular degenerative disease is present. Soft tissues are unremarkable. IMPRESSION: Mild acromioclavicular degenerative disease, with no acute osseous abnormality of the right shoulder. Reviewed, Interpreted and Dictated by Katherin Lopez MD Transcribed by Gissel Devi Authenticated and [facility]
--- OUTSIDE RECORDS SUMMARY | 2025-01-14 09:57 | XMS_ITS | Encounter Summary ---
Author Organization [facility] Address [address] [place] [address] Care Team Providers Care Software Sales Manager Name Role Phone GrossAlma Cathy COURTNEY Primary Care Provider +1- [phone] Reason for Visit * Reason Onset Date Comments [facility] 01/07/2025 Encounter Details Date Type Department Care Team (Late st Contact Info) Description 01/07/2025 Telephone [facility] [address] [place] [address] Nayeli Izaguirre, PharmD [facility] Social History Tobacco Use Types Packs/Day Years [...] on file documented as of this encounter Functional Status * Over the [...] Ayush Cooper documented as of this encounter Plan of Treatment Upcoming Encounters Date Type Department Care Team (Late st Contact Info) Description 02/06/2025 2:00 PM EDT Appointment [facility] [address] [place] [address] 05/18/2025 2:30 PM EST Office [facility] [address] [place] [address] Cristel Castro R, WELL LOGGING OPERATOR [employer] [address] [place] [address] documented as of this encounter Visit Diagnoses Diagnosis Psoriatic arthritis (CMS/[facility])- Primary Psoriatic arthropathy documented in this encounter Additional Health Concerns Assessment Noted Time PHQ-9 Depression Total Score: 0 01/08/20 2:27 PM EDT A fall risk assessment has been complete d for the patient 01/07/2025 2:27 PM EDT A Body Mass Index follow-up plan has been documented for the patient 01/07/2025 3:27 PM EDT documented as of this encounter Care Teams Software Sales Manager Relationship Specialty Start Date End Date Alma Gross APRN [address] [place] [address] PCP - General 05/08/23 documented as of this encounter
--- OUTSIDE RECORDS SUMMARY | 2025-01-14 09:57 | XMS_ITS | Encounter Summary ---
Author Organization Healthcare Address [address] [place] [address] Care Team Providers Care Fresh Foods Cake Decorator Name Role Phone Renato Almanaima Morgan APRN Primary Care Provider +1- [phone] Encounter Details Date Type Department Care Team (Late st Contact Info) Description 01/12/2025 Telephone [facility] [address] [place] [address] Matthew Cristel R, EL TEACHER [address] [place] [address] Social History Tobacco Use Types Packs/Day Years [...] encounter Miscellaneous Notes * Telephone Encounter - Ruth Monsalve - 01/12/2025 1:29 PM EDT Clinical Concern/Question Reason for Call: [facility] is calling about a PA Best contact number: Other: [phone] Optimal time of day to reach caller: ANYTIME Additional comments/information from caller: None Note: Please do not reply to this message. Follow-up communication and further actions as a result of this message need to be communicated with the patient directly, if the patient is not active onMyChart. If the patient is active on MyChart, they will receive notification of the communication/outcome via MyChart. documented in this encounter Plan of Treatment Upcoming Encounters Date Type Department Care Team (Late st Contact Info) Description 02/06/2025 2:00 PM EDT Appointment [facility] [address] [place] [address] 05/18/2025 2:30 PM EST Office Visit [facility] [address] [place] [address] Cristel Castro R, EL TEACHER [address] [place] [address] documented as of this encounter [...] documented as of this encounter Care Teams Fresh Foods Cake Decorator Relationship Specialty Start Date End Date Alma Gross APRN [address] [place] [address] PCP - General 05/08/23 documented as of this encounter
--- OUTSIDE RECORDS SUMMARY | 2025-01-14 09:57 | XMS_ITS | Encounter Summary ---
Author Organization Healthcare Address [address] [place] [address] Care Team Providers Care Resolute Professional Name Role Phone GrossAlma sharma Cathy COURTNEY Primary Care Provider +1- [phone] Encounter Details Date Type Department Care Team (Latest Contact Info) Description 01/07/2025 Travel Social History Tobacco Use Types Packs/Day [...] things Not at all 01/07/2025 2:27 PM CINDYT Ayush Cooper Feeling down, depressed, or hopeless [...] Info) Description 02/06/2025 2:00 PM EDT Appointment [facility] [address] [place] [address] 05/18/2025 2:30 PM EST Office Visit [facility] [address] [place] [address] Matthew, May R, PAPER STRIPPER [address] [place] [address] documented as of this encounter [...] documented as of this encounter Care Teams Resolute Professional Relationship Specialty Start Date End Date Alma Gross APRN [address] [place] [address] PCP - General 05/08/23 documented as of this encounter
--- OUTSIDE RECORDS SUMMARY | 2025-01-14 09:58 | XMS_ITS | Encounter Summary ---
[facility] [address] [place] [address] Care Team Providers Care Cinnamon Grinder Name Role Phone Alma Gross APRN Primary Care Provider + [phone] Encounter Details Date Type Department Care Team (Late st Contact Info) Description 12/09/2024 Telephone [facility] [address] [facility] [address] [place] [address] Jose Salmon MD [address] [employer] [facility] [address] [place], [place] [id number] Social History Tobacco Use Types Packs/Day Years [...] on filedocumented in this encounter Care Teams Cinnamon Grinder Relationship Specialty Start Date End Date Alma Gross, SHERWIN [facility] [place] [address] [place] [phone] PCP - General Internal Medicine 07/01/24 documented as of this encounter
--- OUTSIDE RECORDS SUMMARY | 2025-01-14 09:58 | XMS_ITS | Clinical Summary ---
[facility] [address] [place] [address] Care Team Providers Care Cable Installer Repairer Name Role Phone Alma Gross APRN Primary Care Provider [phone] Allergies No known active allergies Medications albuterol [...] Description 12/09/2024 1:30 PM EDT Office Visit [facility] [place] [facility] [place] [address] [phone] Jose Salmon MD Chronic bilateral low back pain without sciatica (Primary Dx); Spondylolisthesis of lumbar region; Chronic neck pain; History of fusion of cervical spine 12/09/2024 Travel 12/09/2024 Telephone [facility] [address] [phone] Jose Salmon MD 12/08/2024 Results Follow-Up [facility] [address] [phone] Jose Salmon MD 12/02/2024 Patient rounding ([facility] only) [facility] [place] [facility] [place] [address] [phone] Yumiko Petit MA 11/28/2024 11:00 AM EDT Office Visit [facility] NEUROS[facility]GERY [address] [place] [phone] Jose Salmon MD Chronic neck pain (Primary Dx); History of fusion of cervical spine; Chronic bilateral low back pain without sciatica; Spondylolisthesis of lumbar region 11/28/2024 Travel 11/04/2024 Telephone [facility] NEUROS[facility]ERY [address] [place] [phone] Jose Salmon MD 11/04/2024 [facility] NEUROSURGERY [address] [place] [phone] Jose Salmon MD 11/04/2024 Telephone [facility] NEUROS[facility]ERY [address] [place] [phone] Jose Salmon MD from Last 3 Months [...] with no dictation required. Jose Salmon MD [facility] MRI ORDERABLES Fin al Result * MRI Lumbar Spine Without Contrast (12/04/2024) Anatomical Region Laterality Modality Spine, L-spine N/A Magnetic Resonan ce Jose Salmon MD [facility] MRI ORDERABLES Fin al Result from Last 3 Months Insurance [employer] Member Subscriber Plan / Payer (Ef fective 2024-Present) Name:Reed Scott Relation to Subscriber:Spouse Name:ZULEIMA SCOTT Date of :1961 Address: [address] [place] [address] [place] [phone] Payer ID:[id number] (NAIC) Type:Not on file Address: [place] [phone] Care Teams Cable Installer Repairer Relationship Specialty Start Date End Date Alma Gross APRN [facility] [place] [address] [place] [phone] PCP - General Internal Medicine 07/01/24
--- OUTSIDE RECORDS SUMMARY | 2025-01-14 09:58 | XMS_ITS | Encounter Summary ---
[facility] [address] [place] [id number] Care Team Providers Care Molasses Feed Mixer Name Role Phone Alma Gross APRN Primary [...] on filedocumented in this encounter Care Teams Molasses Feed Mixer Relationship Specialty Start Date End Date Alma Gross APRN [address] [place] [address] [facility] [place] [address] PCP - General Internal Medicine 07/01/24 documented as of this encounter
--- OUTSIDE RECORDS SUMMARY | 2025-01-14 09:58 | XMS_ITS | Clinical Summary ---
Author Organization [facility] Address [address] [place] [address] Care Team Providers Care Dietetics Professor Name Role Phone Alma Gross APRN Primary Care Provider [phone] Allergies No known active allergies Medications albuterol [...] into each nostril if needed. 3 Active lisinopril-hydr oCHLOROthiazide 20-12.5 MG tablet TAKE TWO TABLETS BY [...] tablet 1 tablet (50 mg). 4 Active ipratropium-alb uterol (Duo-Neb) 0.5-2.5 mg/3 mL nebulizer solution 3 mL. 4 Active meclizine (Antivert) 25 MG tablet TAKE 1 TABLET BY MOUTH THREE TIMES DAILY NEEDED FOR DIZZINESS 4 Active varenicline (Chantix) 1 MG tablet TAKE 1 TABLET BY MOUTH TWICE DAILY AFTER COMPLETION OF STARTER PACK 4 Active folic acid (Folvite) 1 MG tabletIndicatio ns:High risk medication use Take 1 tablet (1 mg) by mouth 1 (one) time each day. 90 tablet 4 Active predniSONE (Deltasone) 5 MG tabletIndicatio ns:Psoriatic arthritis (CMS/HCC) 3 tablets daily x 1 week, 2 tablets daily x1 week then one tablet daily 49 tablet 4 Active nicotine (Nicoderm CQ) 14 MG/24HR patchIndication s:Encounter for smoking cessation counseling Place 1 patch on the skin 1 (one) time each day at the same time. 28 patch 4 Active Additional Information Patient not taking.Reported on 01/07/2025 nicotine (Nicoderm CQ) 7 MG/24HR patchIndication s:Encounter for smoking cessation counseling Place 1 patch on the skin 1 (one) time each day at the same time. Start after completing 14 mg nicoderm patch. Do not smoke while wearing patch. 14 patch 1 4 Active Additional Information Patient not taking.Reported on 01/07/2025 baclofen (Lioresal) 10 MG tablet 5 Active DULoxetine (Cymbalta) [address] capsule Take 1 capsule by mouth daily. Do not crush or chew. Active famotidine (Pepcid) 20 MG tabletIndicatio ns:Gastroesopha geal reflux disease, unspecified whether esophagitis present Take 1 tablet by mouth 2 times a day. 180 tablet 2 5 Active Secukinumab (Cosentyx Sensoready Pen) 150 MG/ML solution auto-injectorIn dications:Psori atic arthritis (CMS/HCC) Inject 150 mg under the skin every 28 days. 1 mL 3 5 Active Secukinumab (Cosentyx Sensoready Pen) 150 MG/ML solution auto-injectorIn dications:Psori atic arthritis (CMS/HCC) Inject 150 mg (1 pen) under the skin at weeks 0, 1, 2, 3, and 4 followed by 150 mg every 4 weeks. 5 mL 5 Active famotidine (Pepcid) 20 MG tabletIndicatio ns:Gastroesopha geal reflux disease, unspecified whether esophagitis present Take 1 tablet (20 mg) by mouth 2 (two) times a day. 180 tablet 2 4 025 Discontin ued(Reord er) Secukinumab (Cosentyx Sensoready Pen) 150 MG/ML solution auto-injectorIn dications:Psori atic arthritis (CMS/HCC) Inject 150 mg (1 pen) under the skin at weeks 0, 1, 2, 3, and 4 followed by 150 mg every 4 weeks. 5 mL 5 025 Discontin ued(Reord er) Secukinumab (Cosentyx Sensoready Pen) 150 MG/ML solution auto-injectorIn dications:Psori atic arthritis (CMS/HCC) Inject 150 mg under the skin every 28 days. 1 mL 3 5 025 Discontin ued(Reord er) Active Problems No known active problems Encounters Date Type Department Care Team Description 01/12/[address] [facility] [address], [address] [place] [phone] Matthew, Cristel R, EROSION CONTROL SPECIALIST 01/07/2025 2:30 PM EDT Office Visit [facility] [address], [address] [place] [phone] Matthew, May R, EROSION CONTROL SPECIALIST Psoriatic arthritis (CMS/HCC) (Primary Dx); High risk medication use; Raynaud's phenomenon without gangrene; Chronic obstructive pulmonary disease, unspecified COPD type (CMS/HCC); SILVIA positive; Gastroesophageal reflux disease, unspecified whether esophagitis present; Shortness of breath 01/07/2025 Telephone [facility] [address], [address] [place] [address] Nayeli Izaguirre, PharmD Cosentyx New Start 01/07/2025 Travel from Last 3 Months Family History Medical History Relation Name Comments Cancer Father Heart disease Father Cancer Mother Heart disease Mother Relation Name Status Comments Father Mother Social History Tobacco Use Types Packs/Day Years Used Date Smoking Tobacco: Every Day Cigarettes 1 46.7 Started: 1980 Smokeless Tobacco: Never Tobacco Cessation:Ready [...] F) 01/07/2025 2:21 PM EDT Respiratory Rate 16 04/09/2024 10:58 AM EST Oxygen Saturation 94% 01/07/2025 2:21 PM EDT ra Inhaled Oxygen Concentration - - Weight 104 kg (230 lb 6.1 oz) 01/07/2025 2:21 PM EDT Height 175.3 cm (5' 9 ) 01/07/2025 2:21 PM EDT Body Mass Index 34.02 01/07/2025 2:21 PM EDT Plan of Treatment Upcoming Encounters Date Type Department Care Team (Late st Contact Info) Description 02/06/2025 2:00 PM EDT Appointment [facility] [address] [place] [address] 05/18/2025 2:30 PM EST Office Visit [facility] [address], [address] [place] [address] Matthew, May R, EROSION CONTROL SPECIALIST [address] [place] [address] Health Maintenance Due Date Last Done Comments [facility]-Infant/Child/Adol SDOH Screenings 1965 [facility]- SDOH Screenings 1981 [...] - Risk 60-74 years 1-dose series) 2023 OUI-[id number]-19 Vaccine (5 - Moderna risk 2023- season) 2024 02/05/2024, 03/25/2021, 06/25/2020, Additional history exists [facility]-Influenza Vaccine (#1) 2025 01/28/2024 [facility]-Depression Screening 01/07/2026 01/07/2025, 12/20 [facility]-HIV Screening Completed 05/30/2023 [facility]-Pneumococcal Vaccine: 50+ Years Completed 01/28/2024 [facility]-Hepatitis C Screening Completed 01/07/2025, 02/2024 [facility]-Obesity Intervention Completed 025, 04/09/2024, 10/01/2023, Additional history exists HPV Vaccines Aged Out [...] Procedure Name Priority Date/Time Associated Diagnosis Comments HEPATITIS B CORE TOTAL AB (IGG AND IGM) Routine 01/07/2025 4:03 PM EDT High risk medication use HEPATITIS C ANTIBODY W/REFLEX TO HCV QUANT PCR Routine 01/07/2025 4:03 PM EDT High risk medication use QUANTIFERON TB GOLD PLUS Routine 01/07/2025 4:03 PM EDT High risk medication use SCLERODERMA (SCL-70) (DAVID) ANTIBODY, IGG (SO) Routine 01/07/2025 4:03 PM EDT Raynaud's phenomenon without gangrene SILVIA positive CENTROMERE ANTIBODY, IGG (SO) Routine 01/07/2025 4:03 PM EDT Raynaud's phenomenon without gangrene SILVIA positive RNA POLYMERASE III ANTIBODY, IGG (SO) Routine 01/07/2025 4:03 PM EDT Raynaud's phenomenon without gangrene SILVIA positive CBC WITH AUTO DIFFERENTIAL Routine 01/07/2025 4:03 PM EDT SILVIA positive CREATININE, PLASMA Routine 01/07/2025 4: 03 PM EDT SILVIA positive HEPATIC FUNCTION PANEL Routine 4:03 PM EDT SILVIA positive C-REACTIVE PROTEIN, PLASMA Routine 01/07/2025 4:03 PM EDT SILVIA positive C3 COMPLEMENT Routine 01/07/2025 4:03 PM EDT SILVIA positive C4 COMPLEMENT Routine 01/07/2025 4:03 PM EDT SILVIA positive ANTINUCLEAR ANTIBODY (SILVIA) WITH HEP-2 SUBSTRATE, IGG BY IFA (SO) Routine 01/07/2025 4:03 PM EDT Raynaud's phenomenon without gangrene SILVIA positive CRYOGLOBULIN, SERUM (SO) Routine 01/07/2025 4:03 PM EDT Raynaud's phenomenon without gangrene RHEUMATOID FACTOR, PLASMA Routine 01/07/2025 4:03 PM EDT Raynaud's phenomenon without gangrene HIV 1/2 ANTIBODY/ANTIGEN SCREEN WITH REFLEX TO HIV I/II DIFFERENTIATION Routine 05/30/2023 1:32 PM EST Polyarthralgia from Last 3 Months or Most Recently Relevant to Health Maintenance Results * Cryoglobulin, Serum (SO) (01/07/2025 4:03 PM EDT) Cryoglobulin, S Negative Negative %ppt 01/12/2025 10:33 PM EDT [facility] ([facility]) Comment: This test is negative at 24 hours. All samples are held and reviewed again at 7 days. If delayed precipitation occurs after 7 days, Immunofixation will be performed and an additional report will follow. Test Performed by: [facility] [place] [id number] [place] [address] Weigh Tank Operator: Barbara Easley Ph.D.; CLIA# [id number] Blood Venous blood specimen / Unknown Venipuncture / Unknown 01/07/2025 4:03 PM EDT 01/07/2025 4:03 PM EDT May R Matthew EROSION CONTROL SPECIALIST LAB REF LAB BLOOD AND FLUID ORD Final Result [facility] ([facility]) * (ABNORMAL) RNA Polymerase III Antibody, IgG (01/07/2025 4:03 PM EDT) RNA Polymerase III Antibody, IgG 103(H) 0 - 19 Units 01/10/2025 9:46 PM EDT [facility] ([facility]) Blood Venous blood specimen / Unknown Venipuncture / Unknown 01/07/2025 4:03 PM EDT 01/07/2025 4:03 PM EDT Narrative [facility]) - 01/10/2025 9:46 PM EDT INTERPRETIVE [...] antibodies associated with SSc, including centromere, Scl-70, U3-PRESSURE STEAMER TENDER, PM/Scl, or Th/To. Performed By: [address] [place] [id number] Insurance Underwriting Assistant: Martell Anton MD, PhD CLIA Number: [id number] May Matthew EROSION CONTROL SPECIALIST LAB BLOOD ORDERABLES Final Result Performing Organization Address City/[facility]/ZIP Co de Phone Number [facility]) [address] [place] [address] * Centromere Antibody, IgG (01/07/2025 4:03 PM EDT) Pathologist [facility] Centromere Ab, IgG 0 0 - 40 AU/mL 01/11/2025 12:33 AM EDT [facility] ([facility]) Blood Venous blood specimen / Unknown Venipuncture / Unknown 01/07/2025 4:03 PM EDT 01/07/2025 4:03 PM EDT Narrative [facility] ([facility]) - 01/11/2025 12:33 AM EDT INTERPRETIVE [...] other antibodies associated with SSc, including Scl-70, U3-PRESSURE STEAMER TENDER, PM/Scl, or Th/To. Performed By: [address] [place] [address] Insurance Underwriting Assistant: Martell Anton MD, PhD CLIA Number: [id number] may Matthew EROSION CONTROL SPECIALIST LAB BLOOD ORDERABLES Final Result [facility] ([place]) [address] [place] [address] * Hepatitis C Antibody (01/07/2025 4:03 PM EDT) Hepatitis C Antibody Negative Negative 01/07/2025 7:32 PM EDT [facility] Blood Venous blood specimen / Unknown Venipuncture / Unknown 01/07/2025 4:03 PM EDT 01/07/2025 4:03 PM EDT may Matthew EROSION CONTROL SPECIALIST LAB BLOOD ORDERABLES Final Result [facility] [address] [place] [address] * Anti-scleroderma antibody (01/07/2025 4:03 PM EDT) Pathologist [facility] SCLERODERMA (SCL-70) (DAVID) ANTIBODY, IGG 0 0 - 40 AU/mL 01/11/2025 12:33 AM EDT [email or web address] ([facility]) Blood Venous blood specimen / Unknown Venipuncture / Unknown 01/07/2025 4:03 PM EDT 01/07/2025 4:03 PM EDT Narrative [facility] ([facility]) - 01/11/2025 12:33 AM EDT [...] testing for centromere, RNA polymerase III and U3-PRESSURE STEAMER TENDER, PM/Scl, or Th/To antibodies. Performed By: [address] [place] [address] Insurance Underwriting Assistant: Martell Anton MD, PhD CLIA Number: [id number] May [facility] LAB BLOOD ORDERABLES Final Result [facility] ([facility]) [address] [place] [address] * Hepatitis B Core Total Antibody IgG,IgM (01/07/2025 4:03 PM EDT) [facility] Hepatitis B Core Total Antibody IgG,IgM Negative Negative 01/07/2025 8:30 PM EDT [facility] Blood Venous blood specimen / Unknown Venipuncture / Unknown 01/07/2025 4:03 PM EDT 01/07/2025 4:03 PM EDT May [facility] LAB BLOOD ORDERABLES Final Result [facility] [address] [place] [address] * Quantiferon TB Gold Plus (01/07/2025 4:03 PM EDT) [facility] Quantiferon TB Gold Plus Result Negative Negative 01/08/2025 7:53 PM EDT [facility] TB Nill Value 0.0403 IU/mL 01/08/2025 7:53 PM EDT [facility] TB Antigen 1 0.0249 IU/mL 01/08/2025 7:53 PM EDT [facility] TB Antigen 2 0.0152 IU/mL 01/08/2025 7:53 PM EDT [facility] TB Mitogen 9.9597 IU/mL 01/08/2025 7:53 PM EDT [facility] Blood Venous blood specimen / Unknown Venipuncture / Unknown 01/07/2025 4:03 PM EDT 01/07/2025 4:03 PM EDT Narrative [facility] - 01/08/2025 7:53 PM EDT Responses to the Mitogen positive control and occasionally to TB antigen can be above the assay range. For calculation purposes: IFN-gamma values > 10 IU/mL are handled as 10 IU/mL. [facility] Final Result Performing Organization Address [facility] Co de Phone Number [facility] [address] [place] [address] * Creatinine, Plasma (01/07/2025 4:03 PM EDT) Pathologist [facility] Creatinine, Plasma 0.68 0.60 - 1.10 mg/dL 01/07/2025 7:54 PM EDT [facility] eGFRcr 99.2 mL/min/1.7 3m*2 01/07/2025 7:54 PM EDT [facility] Comment:Reported eGFRcr in m L/min/1.73m2 is based the CKD-EPI 2020 equation that does not use a race coefficient. Blood Venous blood specimen / Unknown Venipuncture / Unknown 01/07/2025 4:03 PM EDT 01/07/2025 4:03 PM EDT May Matthew EROSION CONTROL SPECIALIST LAB BLOOD ORDERABLES Final Result Performing Organization Address [facility]/ZIP Co de Phone Number [facility] [address] [place] [address] * (ABNORMAL) CBC and Differential (01/07/2025 4:03 PM EDT) WBC Count 9.02 3.70 - 10.30 10*3/uL LAB HEMATOLOGY METHOD 01/07/2025 7:08 PM EDT [facility] RBC Count 4.66 3.90 - 5.20 10*6/uL LAB HEMATOLOGY METHOD 01/07/2025 7:08 PM EDT [facility] HGB 14.5 11.2 - 15.7 g/dL LAB HEMATOLOGY METHOD 01/07/2025 7:08 PM EDT [facility] HCT 43.6 34.0 - 45.0 % LAB HEMATOLOGY METHOD 01/07/2025 7:08 PM EDT [facility] Platelet Count 269 155 - 369 10*3/uL LAB HEMATOLOGY METHOD 01/07/2025 7:08 PM EDT [facility] MCV 94 79 - 98 fL LAB HEMATOLOGY METHOD 01/07/2025 7:08 PM EDT [facility] MCH 31.1 26.0 - 32.0 pg LAB HEMATOLOGY METHOD 01/07/2025 7:08 PM EDT [facility] MCHC 33.3 30.7 - 35.5 g/dL LAB HEMATOLOGY METHOD 01/07/2025 7:08 PM EDT [facility] RDW 13.7 11.5 - 14.5 % LAB HEMATOLOGY METHOD 01/07/2025 7:08 PM EDT [facility] MPV 11.7 8.8 - 12.5 fL LAB HEMATOLOGY METHOD 01/07/2025 7:08 PM EDT [facility] nRBC 0.0 <=0.0 per 100 WBCs LAB HEMATOLOGY METHOD 01/07/2025 7:08 PM EDT [facility] Differential Type Automated LAB HEMATOLOGY METHOD 01/07/2025 7:08 PM EDT [facility] Neutrophils % 68 % LAB HEMATOLOGY METHOD 01/07/2025 7:08 PM EDT [facility] Lymphocytes % 21 % LAB HEMATOLOGY METHOD 01/07/2025 7:08 PM EDT [facility] Monocytes % 8 % LAB HEMATOLOGY METHOD 01/07/2025 7:08 PM EDT [facility] Eosinophils % 2 % LAB HEMATOLOGY METHOD 01/07/2025 7:08 PM EDT [facility] Basophils % 1 % LAB HEMATOLOGY METHOD 01/07/2025 7:08 PM EDT [facility] Immature Granulocytes % 0 % LAB HEMATOLOGY METHOD 01/07/2025 7:08 PM EDT [facility] Neutrophils Absolute 6.21(H) 1.60 - 6.10 10*3/uL LAB HEMATOLOGY METHOD 01/07/2025 7:08 PM EDT [facility] Lymphocytes Absolute 1.90 1.20 - 3.90 10*3/uL LAB HEMATOLOGY METHOD 01/07/2025 7:08 PM EDT [facility] Monocytes Absolute 0.70 0.30 - 0.90 10*3/uL LAB HEMATOLOGY METHOD 01/07/2025 7:08 PM EDT [facility] Eosinophils Absolute 0.14 0.00 - 0.50 10*3/uL LAB HEMATOLOGY METHOD 01/07/2025 7:08 PM EDT [facility] Basophils Absolute 0.05 0.00 - 0.10 10*3/uL LAB HEMATOLOGY METHOD 01/07/2025 7:08 PM EDT [facility] Immature Granulocytes Absolute 0.02 0.00 - 0.06 10*3/uL LAB HEMATOLOGY METHOD 01/07/2025 7:08 PM EDT [facility] Blood Venous blood specimen / Unknown Venipuncture / Unknown 01/07/2025 4:03 PM EDT 01/07/2025 4:03 PM EDT Narrative [facility] - 01/07/2025 7:08 PM EDT Therapeutic decision making should be based on absolute values, rather than percentages. May R [facility] LAB BLOOD ORDERABLES Final Result [facility] [address] [place] [address] * Rheumatoid Factor, Plasma (01/07/2025 4:03 PM EDT) Pathologist [facility] Rheumatoid Factor, Plasma <10 <14 IU/mL 01/07/2025 10:33 PM EDT [facility] Blood Venous blood specimen / Unknown Venipuncture / Unknown 01/07/2025 4:03 PM EDT 01/07/2025 4:03 PM EDT May [facility] EROSION CONTROL SPECIALIST LAB BLOOD ORDERABLES Final Result [facility] [address] [place] [address] * (ABNORMAL) C3 Complement (01/07/2025 4:03 PM EDT) C3 Complement 174(H) 84 - 166 mg/dL 01/07/2025 10:33 PM EDT [facility] Blood Venous blood specimen / Unknown Venipuncture / Unknown 01/07/2025 4:03 PM EDT 01/07/2025 4:03 PM EDT May R Matthew EROSION CONTROL SPECIALIST LAB BLOOD ORDERABLES Final Result Performing Organization Address [facility] Co de Phone Number [facility] [address] [place] [address] * C4 Complement (01/07/2025 4:03 PM EDT) C4 Complement 29 13 - 36 mg/dL 01/07/2025 10:33 PM EDT [facility] Blood Venous blood specimen / Unknown Venipuncture / Unknown 01/07/2025 4:03 PM EDT 01/07/2025 4:03 PM EDT May Matthew EROSION CONTROL SPECIALIST LAB BLOOD ORDERABLES Final Result Performing Organization Address [facility] de Phone Number [facility] [address] [place] [address] * (ABNORMAL) C-Reactive Protein, Plasma (01/07/2025 4:03 PM EDT) [facility] CRP, Plasma 11.5(H) <=8.0 mg/L 01/07/2025 7:54 PM EDT [facility] Blood Venous blood specimen / Unknown Venipuncture / Unknown 01/07/2025 4:03 PM EDT 01/07/2025 4:03 PM EDT Narrative [facility] - 01/07/2025 7:54 PM EDT This CRP test is appropriate for assessment of infection, systemic inflammation and/or tissue injury. To assess cardiovascular disease risk order high sensitivity CRP (CRPH). May Matthew EROSION CONTROL SPECIALIST LAB BLOOD ORDERABLES Final Result Performing Organization Address [facility] Co de Phone Number [facility] [address] [place] [address] * ANTI NUCLEAR AB (01/07/2025 4:03 PM EDT) SILVIA INTERPRETIVE COMMENT See Note 01/10/2025 5:13 PM EDT [facility] ([facility]) Anti Nuc Ab Screen <1:80 <1:80 01/10/2025 5:13 PM EDT [facility] ([facility]) Blood Venous blood specimen / Unknown Venipuncture / Unknown 01/07/2025 4:03 PM EDT 01/07/2025 4:03 PM EDT Narrative [facility] ([facility]) - 01/10/2025 5:13 PM [...] not necessarily rule out SARD. Performed By: [address] [place] [id number] Insurance Underwriting Assistant: Martell Anton MD, PhD CLIA Number: [id number] may Matthew EROSION CONTROL SPECIALIST LAB BLOOD ORDERABLES Final Result [facility] ([facility]) [address] [place] [address] * Hepatic Function Panel (01/07/2025 4:03 PM EDT) Pathologist [facility] Conjugated Bilirubin, Plasma <0.2 <=0.3 mg/dL 01/07/2025 7:54 PM EDT [facility] Alkaline Phosphatase, Plasma 90 46 - 142 U/L 01/07/2025 7:54 PM EDT [facility] Total Bilirubin, Plasma 0.2 0.2 - 1.1 mg/dL 01/07/2025 7:54 PM EDT [facility] Albumin, Plasma 3.8 3.5 - 5.2 g/dL 01/07/2025 7:54 PM EDT [facility] Total Protein 6.4 6.3 - 7.9 g/dL 01/07/2025 7:54 PM EDT [facility] ALT, Plasma 26 10 - 35 U/L 01/07/2025 7:54 PM EDT [facility] AST, Plasma 30 10 - 35 U/L 01/07/2025 7:54 PM EDT [facility] Blood Venous blood specimen / Unknown Venipuncture / Unknown 01/07/2025 4:03 PM EDT 01/07/2025 4:03 PM EDT May [facility] LAB BLOOD ORDERABLES Final Result [facility] [address] [place] [address] * HIV 1 & 2 Antibody/Antigen Screen (05/30/2023 1:32 PM EST) [facility] HIV 1 & 2 Antibody/Antigen Screen Non Reactive Non Reactive 05/30/2023 3:32 PM EST [facility] Comment:Screening for HIV 1 & 2 antibodies, and P24 antigen is NONREACTIVE. No confirmatory testing is required. Blood Venous blood specimen / Unknown Venipuncture / Unknown 05/30/2023 1:32 PM EST 05/30/2023 1:34 PM EST May Matthew [facility] BLOOD ORDERABLES Final Result [facility] [address] [place] [id number] from Last 3 Months or Most Recently Relevant to Health Maintenance Insurance [employer] D[employer] CLAIMS [facility] Care Teams Dietetics Professor Relationship Specialty Start Date End Date Alma Gross APRN [address] [place] [address] PCP - General 05/08/23
--- OUTSIDE RECORDS SUMMARY | 2025-01-14 09:58 | XMS_ITS | Encounter Summary ---
[facility] Address [address] [place] [address] Care Team Providers Care Tyre Builder Name Role Phone Alma Gross APRN Primary Care Provider + [phone] Encounter Details Date Type Department Care Team (Late st Contact Info) Description 12/08/2024 Results Follow-Up [facility] [address] [facility] [address] [place] [phone] Jose Salmon MD [address] [facility] [address] [place] [address] Social History Tobacco Use Types Packs/Day Years [...] on filedocumented in this encounter Care Teams Tyre Builder Relationship Specialty Start Date End Date Alma Gross APRN [address] [place] [address] [place] JANE [id number] PCP - General Internal Medicine 07/01/24 documented as of this encounter
--- OUTSIDE RECORDS SUMMARY | 2025-01-14 09:58 | XMS_ITS | Encounter Summary ---
[facility] Address [address] [place] [id number] Care Team Providers Care Band Attacher Name Role Phone Alma Gross APRN Primary [...] on filedocumented in this encounter Care Teams Band Attacher Relationship Specialty Start Date End Date Alma Gross APRN [address] [place] [address] [facility] [place] [address] PCP - General Internal Medicine 07/01/24 documented as of this encounter
--- OUTSIDE RECORDS SUMMARY | 2025-01-14 09:58 | XMS_ITS | Encounter Summary ---
[facility] Address [address] [place] [address] Care Team Providers Care Solar Installation Manager Name Role Phone Alma Gross APRN Primary Care Provider [phone] Encounter Details Date Type Department Care Team (Late st Contact Info) Description 12/02/2024 Patient rounding ([facility] only) [facility] [address] [facility] [address] [place] [address] Yumiko Petit MA Social History [...] MA - 12/02/2024 7:32 PM EDT A [employer] message has been sent to the patient for patient rounding documented in this encounter Plan of Treatment Not on file documented as of this encounter Visit Diagnoses Not on filedocumented in this encounter Care Teams Solar Installation Manager Relationship Specialty Start Date End Date Alma Gross APRN [address] [facility] [address] [address] PCP - General Internal Medicine 07/01/24 documented as of this encounter
== END 2025-01-14 23:59 | disposition home or self-care (01) ==
LOC: RAD 09:56
PROVIDERS: PCP Nurse Practitioner Family; Visit Provider Physician Assistant
DX: M19.011 Primary osteoarthritis, right shoulder (principal)
CPT/HCPCS: 73030

== ENCOUNTER 2025-01-27 14:05 | Day surgery (SDC) | payer OTHER, SELFPAY ==
[2025-01-27 14:20] VITALS: BP 139/78; PULSE 97; RESP 18; O2SAT 94; BMI 34.0
[2025-01-27 14:30] VITALS: BP 117/86; PULSE 95; RESP 18; O2SAT 95
[2025-01-27] MEDS: BUPIVACAINE 0.25% 10ML INJ 25 MG IJ (14:35)
[2025-01-27] MEDS: LIDOCAINE 1% 5ML PF VIAL 5 ML (14:35)
[2025-01-27] MEDS: DEXAMETHASONE 10MG/ML 1ML VIAL 10 MG (14:35)
[2025-01-27 14:36] VITALS: BP 129/90; PULSE 101; RESP 18; O2SAT 94
--- NOTE | 2025-01-27 14:36 | P.PCN_ITS ---
Procedure Date: 01/27/25 Time: 14:15 Anesthesiologist:: Marlon Mcdonnell CRNA Complications:: None Pre-procedure Diagnosis:: Bilateral sacroiliitis Post-procedure Diagnosis:: Same Indications for Procedure:: Patient is a very pleasant 59-year-old female who comes our clinic today for josefa ateral sacroiliac joint injection of cortisone local anesthetic. Patient describes low lumbar back pain off the midline bilaterally. Bilateral posterior hip pain. Difficulty transitioning from sitting to standing. Difficulty with ambulation. She rates her pain 7/10. Procedure Details:: Procedure: Bilateral sacroiliac joint injections under fluoroscopy Informed consent was obtained and the risks and benefits of the procedure were explained to the patient.~ The patient was taken to the procedure room and noninvasive monitors were placed including a noninvasive blood pressure cuff and pulse oximeter.~ The patient was placed prone on the procedure table. Both hips were cleansed using Betadine as a cleansing solution. C-arm fluoroscopy was used to view the right sacroiliac joint.~ The skin and subcutaneous tissues were anesthetized using lidocaine 1.5% and a 25-gauge needle.~ After this, a 22-gauge spinal needle was inserted under fluoroscopic guidance into the inferior aspect of the right sacroiliac joint.~ Omnipaque dye was injected and good spread was seen throughout the joint.~ After this, approximately 5 mL of bupivacaine, 0.25% and dexamethasone 5 mg was incrementally injected into the right sacroiliac joint. We then moved to the left sacroiliac joint.~ The skin and subcutaneous tissues were anesthetized using lidocaine 1.5% and a 25-gauge needle.~ After this, a 22- gauge spinal needle was inserted under fluoroscopic guidance into the inferior aspect of the left sacroiliac joint.~ Omnipaque dye was injected and good spread was seen throughout the joint. After this, approximately 5 mL of bupivacaine, 0.25% and dexamethasone 5 mg was incrementally injected into the left sacroiliac joint.~ The patient tolerated the procedure well with no complications. The patient was observed in the Pain Clinic and then was discharged home neurologically intact. Plan and Disposition:: Patient was discharged without incident.
[2025-01-27 14:37] VITALS: BP 129/90; PULSE 101; RESP 18; O2SAT 94
== END 2025-01-27 14:30 | disposition home or self-care (01) ==
LOC: SC.PAINP 14:05
PROVIDERS: PCP Nurse Practitioner Family; Visit Provider Nurse Anesthetist, Certified Registered
DX: M46.1 Sacroiliitis, not elsewhere classified (principal); J45.50 Severe persistent asthma, uncomplicated; J44.89 Other specified chronic obstructive pulmonary disease; J84.10 Pulmonary fibrosis, unspecified; I11.9 Hypertensive heart disease without heart failure; F17.210 Nicotine dependence, cigarettes, uncomplicated; Z79.51 Long term (current) use of inhaled steroids; Z79.899 Other long term (current) drug therapy
CPT/HCPCS: 64450; J0665; J1100; J2003

== ENCOUNTER 2025-02-09 14:00 | Outpatient (RCR) | payer OTHER, SELFPAY | END 2025-02-16 23:59 | disposition home or self-care (01) | LOC: PT 14:00 | PROVIDERS: PCP Nurse Practitioner Family; Visit Provider Neurological Surgery | DX: M54.2 Cervicalgia (principal); G89.29 Other chronic pain; M43.16 Spondylolisthesis, lumbar region; Z98.1 Arthrodesis status | CPT/HCPCS: 97110; 97530 ==

== ENCOUNTER 2025-02-20 09:04 | Outpatient (CLI) | payer OTHER, SELFPAY ==
--- OUTSIDE RECORDS SUMMARY | 2025-01-07 14:30 | XMS_ITS | Encounter Summary ---
Author Organization Healthcare Address [address] [place] [address] Care Team Providers Care Export Packer Name Role Phone Alma Gross MANAGER WAREHOUSE Primary Care Provider [phone]- [phone] Reason for Referral * Imaging (Routine) - Closed Specialty Diagnoses / Procedures Referred By Joyce jones Referred To Contact Radiology Diagnoses Shortness of breath Procedures CT Chest wo IV Contrast May [address] [facility] [address] [place] [address] Phone: tel: fax: Referral ID Status Reason Start Date Expiration Date Visits Re quested Visits Authorized [id number] Closed 01/07/2025 07/09/2026 1 1 Reason for Visit * Reason Comments Follow-up Psoriatic arthritis (CMS/HCC) Encounter Details Date Type Department Care Team (Late st Contact Info) Description 01/07/2025 2:30 PM EDT [facility] [address] [place] [address] May, MANAGER WAREHOUSE [address] [place] [address] Psoriatic arthritis (CMS/HCC) (Primary Dx); High risk medication use; Raynaud's phenomenon without gangrene; Chronic obstructive pulmonary disease, unspecified COPD type ([facility]); SILVIA positive; Gastroesophageal reflux disease, unspecified whether [...] * Progress Notes - Matthew, May R, MANAGER WAREHOUSE - 01/07/2025 2:30 PM EDT Subjective Patient [...] Neurosurgery for spine pain. [facility]. Getting an injection in each SI joint [...] No hx of alcohol abuse. 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 Family and Community Support Help with Day-to-Day Activities: Not on file Lonely or Isolated: Not on file Intimate Partner Violence: Unknown (03/02/2023) Received from [facility] Abuse Screen Unsafe at Home or Work/School: Not on file Feels Threatened by Someone?: Not on file Does Anyone Keep You from Contacting Others or Doint Things Outside the Home?: Not on file Physical Sign of Abuse Present: Not on file Housing Stability: Unknown (03/02/2023) Received from [facility] Housing Stability Current Living Arrangements: Not on [...] ? Raynaud's on feet noticed recently +GERD Manteo criteria + family hx + nail dystrophy [...] of chronic medical conditions. Treatment optionswere discussed, [phone] [phone]. 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 As a result, errors may occur. When identified, these overhead cleaner maintainer errors are corrected, but while every attempt is made to prevent/correct these, errors may still exist. , documented in this encounter Plan of Treatment Upcoming Encounters Date Type Department Care Team (Late st Contact Info) Description 03/04/2025 9:00 AM EDT Office Visit [facility] Medicine Specialties [address] [place] [address] Leonel Gonzalez MD [address] [place] [phone] 03/04/2025 11:00 AM EDT Office Visit [facility] Medicine Specialties [address] [place] [phone] Matthew, May R, MANAGER WAREHOUSE [address] [place] [address] documented as of this encounter [...] Suarez MD on 02/06/2025 2:52 PM may Matthew MANAGER WAREHOUSE IMG CT PROCEDURES Final Res ult * Rheumatoid Factor, Plasma (01/07/2025 4:03 PM EDT) Rheumatoid Factor, Plasma <10 <14 IU/mL 01/07/2025 10:33 PM EDT [facility] Blood Venous blood specimen / Unknown Venipuncture / Unknown 01/07/2025 4:03 PM EDT 01/07/2025 4:03 PM EDT May [facility] MANAGER WAREHOUSE LAB BLOOD ORDERABLES Final Result [facility] [address] [place] [address] * Cryoglobulin, Serum (SO) (01/07/2025 4:03 PM EDT) [facility] Cryoglobulin, S Negative Negative %ppt 01/12/2025 10:33 PM EDT [facility] ([facility]) Comment: This test is negative at 24 hours. All samples are held and reviewed again at 7 days. If delayed precipitation occurs after 7 days, Immunofixation will be performed and an additional report will follow. Test Performed by: [facility] [address] [place] [address] Global Sales Executive: Barbara Easley Ph.D.; CLIA# [id number] Blood Venous blood specimen / Unknown Venipuncture / Unknown 01/07/2025 4:03 PM EDT 01/07/2025 4:03 PM EDT [facility]LOOD AND FLUID ORD Final Result [facility] ([facility]) * ANTI NUCLEAR AB (01/07/2025 4:03 PM EDT) [facility] SILVIA INTERPRETIVE COMMENT See Note 01/10/2025 5:13 PM EDT [facility] (SocialFlow) Anti Nuc Ab Screen <1:80 <1:80 01/10/2025 5:13 PM EDT [facility] ([facility]) Blood Venous blood specimen / Unknown Venipuncture / Unknown 01/07/2025 4:03 PM EDT 01/07/2025 4:03 PM EDT Narrative [facility] ([facility]) - 01/10/2025 5:13 PM EDT [...] not necessarily rule out SARD. Performed By: [facility] [address] [place] [address] Quality Intern: Martell Anton MD, PhD CLIA Number: [id number] May R Matthew COURTNEY LAB BLOOD ORDERABLES Final Result [facility] ([facility]KE) [address] [place] [address] * C4 Complement (01/07/2025 4:03 PM EDT) C4 Complement 29 13 - 36 mg/dL 01/07/2025 10:33 PM EDT [facility] Blood Venous blood specimen / Unknown Venipuncture / Unknown 01/07/2025 4:03 PM EDT 01/07/2025 4:03 PM EDT May R Matthew ROBERTSONN LAB BLOOD ORDERABLES Final Result Performing Organization Address City/[facility]/ZIP Co de Phone Number [facility] [address] [place] [address] * (ABNORMAL) C3 Complement (01/07/2025 4:03 PM EDT) C3 Complement 174(H) 84 - 166 mg/dL 01/07/2025 10:33 PM EDT [facility] Blood Venous blood specimen / Unknown Venipuncture / Unknown 01/07/2025 4:03 PM EDT 01/07/2025 4:03 PM EDT May Matthew ROBERTSONN LAB BLOOD ORDERABLES Final Result Performing Organization Address [facility] Co de Phone Number [facility] [address] [place] [address] * (ABNORMAL) C-Reactive Protein, Plasma (01/07/2025 4:03 PM EDT) CRP, Plasma 11.5(H) <=8.0 mg/L 01/07/2025 7:54 PM EDT [facility] Blood Venous blood specimen / Unknown Venipuncture / Unknown 01/07/2025 4:03 PM EDT 01/07/2025 4:03 PM EDT Narrative [facility] - 01/07/2025 7:54 PM EDT This CRP test is appropriate for assessment of infection, systemic inflammation and/or tissue injury. To assess cardiovascular disease risk order high sensitivity CRP (CRPH). May Matthew [facility] LAB BLOOD ORDERABLES Final Result Performing Organization Address City/[facility]/ZIP Co de Phone Number [facility] [address] [place] [address] * Hepatic Function Panel (01/07/2025 4:03 PM EDT) Direct Bilirubin, Plasma <0.2 <=0.3 mg/dL 01/07/2025 7:54 PM EDT [facility] Alkaline Phosphatase, Plasma 90 46 - 142 U/L 01/07/2025 7:54 PM EDT [facility] Total Bilirubin, Plasma 0.2 0.2 - 1.1 mg/dL 01/07/2025 7:54 PM EDT [facility] Albumin, Plasma 3.8 3.5 - 5.2 g/dL 01/07/2025 7:54 PM EDT [facility] Total Protein 6.4 6.3 - 7.9 g/dL 01/07/2025 7:54 PM EDT [facility] ALT, Plasma 26 10 - 35 U/L 01/07/2025 7:54 PM EDT [facility] AST, Plasma 30 10 - 35 U/L 01/07/2025 7:54 PM EDT [facility] Blood Venous blood specimen / Unknown Venipuncture / Unknown 01/07/2025 4:03 PM EDT 01/07/2025 4:03 PM EDT May R Matthew MANAGER WAREHOUSE LAB BLOOD ORDERABLES Final Result Performing Organization Address [facility] Co de Phone Number [facility] [address] [place] [address] * Creatinine, Plasma (01/07/2025 4:03 PM EDT) [facility] Signature Creatinine, Plasma 0.68 0.60 - 1.10 mg/dL 01/07/2025 7:54 PM EDT [facility] eGFRcr 99.2 mL/min/1.7 3m*2 01/07/2025 7:54 PM EDT [facility] Comment:Reported eGFRcr in m L/min/1.73m2 is based the CKD-EPI 2020 equation that does not use a race coefficient. Blood Venous blood specimen / Unknown Venipuncture / Unknown 01/07/2025 4:03 PM EDT 01/07/2025 4:03 PM EDT May Matthew MANAGER WAREHOUSE LAB BLOOD ORDERABLES Final Result Performing Organization Address City/[facility]/ZIP Co de Phone Number [facility] [address] [place] [address] * (ABNORMAL) CBC and Differential (01/07/2025 4:03 PM EDT) [facility] WBC Count 9.02 3.70 - 10.30 10*3/uL LAB HEMATOLOGY METHOD 01/07/2025 7:08 PM EDT [facility] RBC Count 4.66 3.90 - 5.20 10*6/uL LAB HEMATOLOGY METHOD 01/07/2025 7:08 PM EDT [facility] HGB 14.5 11.2 - 15.7 g/dL LAB HEMATOLOGY METHOD 01/07/2025 7:08 PM EDT [facility] HCT 43.6 34.0 - 45.0 % LAB HEMATOLOGY METHOD 01/07/2025 7:08 PM EDT [facility] Platelet Count 269 155 - 369 10*3/uL LAB HEMATOLOGY METHOD 01/07/2025 7:08 PM EDT [facility] MCV 94 79 - 98 fL LAB HEMATOLOGY METHOD 01/07/2025 7:08 PM EDT [facility] MCH 31.1 26.0 - 32.0 pg LAB HEMATOLOGY METHOD 01/07/2025 7:08 PM EDT [facility] MCHC 33.3 30.7 - 35.5 g/dL LAB HEMATOLOGY METHOD 01/07/2025 7:08 PM EDT [facility] RDW 13.7 11.5 - 14.5 % LAB HEMATOLOGY METHOD 01/07/2025 7:08 PM EDT [facility] MPV 11.7 8.8 - 12.5 fL LAB HEMATOLOGY METHOD 01/07/2025 7:08 PM EDT [facility] nRBC 0.0 <=0.0 per 100 WBCs LAB HEMATOLOGY METHOD 01/07/2025 7:08 PM EDT [facility] Differential Type Automated LAB HEMATOLOGY METHOD 01/07/2025 7:08 PM EDT [facility] Neutrophils % 68 % LAB HEMATOLOGY METHOD 01/07/2025 7:08 PM EDT [facility] Lymphocytes % 21 % LAB HEMATOLOGY METHOD 01/07/2025 7:08 PM EDT [facility] Monocytes % 8 % LAB HEMATOLOGY METHOD 01/07/2025 7:08 PM EDT [facility] Eosinophils % 2 % LAB HEMATOLOGY METHOD 01/07/2025 7:08 PM EDT [facility] Basophils % 1 % LAB HEMATOLOGY METHOD 01/07/2025 7:08 PM EDT [facility] Immature Granulocytes % 0 % LAB HEMATOLOGY METHOD 01/07/2025 7:08 PM EDT [facility] Neutrophils Absolute 6.21(H) 1.60 - 6.10 10*3/uL LAB HEMATOLOGY METHOD 01/07/2025 7:08 PM EDT [facility] Lymphocytes Absolute 1.90 1.20 - 3.90 10*3/uL LAB HEMATOLOGY METHOD 01/07/2025 7:08 PM EDT [facility] Monocytes Absolute 0.70 0.30 - 0.90 10*3/uL LAB HEMATOLOGY METHOD 01/07/2025 7:08 PM EDT [facility] Eosinophils Absolute 0.14 0.00 - 0.50 10*3/uL LAB HEMATOLOGY METHOD 01/07/2025 7:08 PM EDT [facility] Basophils Absolute 0.05 0.00 - 0.10 10*3/uL LAB HEMATOLOGY METHOD 01/07/2025 7:08 PM EDT [facility] Immature Granulocytes Absolute 0.02 0.00 - 0.06 10*3/uL LAB HEMATOLOGY METHOD 01/07/2025 7:08 PM EDT [facility] Blood Venous blood specimen / Unknown Venipuncture / Unknown 01/07/2025 4:03 PM EDT 01/07/2025 4:03 PM EDT Narrative [facility] - 01/07/2025 7:08 PM EDT Therapeutic decision making should be based on absolute values, rather than percentages. May Matthew MANAGER WAREHOUSE LAB BLOOD ORDERABLES Final Result [facility] [address] [place] [address] * (ABNORMAL) RNA Polymerase III Antibody, IgG (01/07/2025 4:03 PM EDT) RNA Polymerase III Antibody, IgG 103(H) 0 - 19 Units 01/10/2025 9:46 PM EDT [facility] ([facility]ER) Blood Venous blood specimen / Unknown Venipuncture / Unknown 01/07/2025 4:03 PM EDT 01/07/2025 4:03 PM EDT Narrative [facility] DERRICK GONZALEZ) - 01/10/2025 9:46 PM EDT INTERPRETIVE INFORMATION: [...] antibodies associated with SSc, including centromere, Scl-70, U3-ASSISTANT PROFESSOR OF RELIGION, PM/Scl, or Th/To. Performed By: [facility] [address] [place] [id number] Quality Intern: Martell Anton MD, PhD CLIA Number: [id number] May R Matthew MANAGER WAREHOUSE LAB BLOOD ORDERABLES Final Result [facility]) [address] [place] [address] * Centromere Antibody, IgG (01/07/2025 4:03 PM EDT) Centromere Ab, IgG 0 0 - 40 AU/mL 01/11/2025 12:33 AM EDT [facility] LISA) Blood Venous blood specimen / Unknown Venipuncture / Unknown 01/07/2025 4:03 PM EDT 01/07/2025 4:03 PM EDT Narrative [facility] DERRICK GONZALEZ) - 01/11/2025 12:33 AM EDT INTERPRETIVE INFORMATION: [...] other antibodies associated with SSc, including Scl-70, U3-ASSISTANT PROFESSOR OF RELIGION, PM/Scl, or Th/To. Performed By: [facility] [address] [place] [address] Quality Intern: Martell Anton MD, PhD CLIA Number: [id number] may Matthew MANAGER WAREHOUSE LAB BLOOD ORDERABLES Final Result [facility]) [address] [place], [place] [id number] * Anti-scleroderma antibody (01/07/2025 4:03 PM EDT) SCLERODERMA (SCL-70) (DAVID) ANTIBODY, IGG 0 0 - 40 AU/mL 01/11/2025 12:33 AM EDT [facility] ([facility]) Blood Venous blood specimen / Unknown Venipuncture / Unknown 01/07/2025 4:03 PM EDT 01/07/2025 4:03 PM EDT Narrative [facility]) - 01/11/2025 12:33 AM EDT INTERPRETIVE INFORMATION: [...] testing for centromere, RNA polymerase III and U3-ASSISTANT PROFESSOR OF RELIGION, PM/Scl, or Th/To antibodies. Performed By: [facility] [address] [place] [address] Quality Intern: Martell Anton MD, PhD CLIA Number: [id number] may [facility] LAB BLOOD ORDERABLES Final Result [facility] ([facility]) [address] [place], [place] [id number] * Quantiferon TB Gold Plus (01/07/2025 4:03 PM EDT) Pathologist [facility] Quantiferon TB Gold Plus Result Negative Negative 01/08/2025 7:53 PM EDT [facility] TB Nill Value 0.0403 IU/mL 01/08/2025 7:53 PM EDT [facility] TB Antigen 1 0.0249 IU/mL 01/08/2025 7:53 PM EDT [facility] TB Antigen 2 0.0152 IU/mL 01/08/2025 7:53 PM EDT [facility] TB Mitogen 9.9597 IU/mL 01/08/2025 7:53 PM EDT [facility] Blood Venous blood specimen / Unknown Venipuncture / Unknown 01/07/2025 4:03 PM EDT 01/07/2025 4:03 PM EDT Narrative [facility] - 01/08/2025 7:53 PM EDT Responses to the Mitogen positive control and occasionally to TB antigen can be above the assay range. For calculation purposes: IFN-gamma values > 10 IU/mL are handled as 10 IU/mL. May Matthew ROBERTSONN LAB BLOOD ORDERABLES Final Result Performing Organization Address [facility] Co de Phone Number [facility] [address] [place] [address] * Hepatitis C Antibody (01/07/2025 4:03 PM EDT) Hepatitis C Antibody Negative Negative 01/07/2025 7:32 PM EDT [facility] Blood Venous blood specimen / Unknown Venipuncture / Unknown 01/07/2025 4:03 PM EDT 01/07/2025 4:03 PM EDT us May Matthew COURTNEY LAB BLOOD ORDERABLES Final Result Performing Organization Address City/[facility]/ZIP Co de Phone Number [facility] [address] [place] [address] * Hepatitis B Core Total Antibody IgG,IgM (01/07/2025 4:03 PM EDT) Hepatitis B Core Total Antibody IgG,IgM Negative Negative 01/07/2025 8:30 PM EDT [facility] Blood Venous blood specimen / Unknown Venipuncture / Unknown 01/07/2025 4:03 PM EDT 01/07/2025 4:03 PM EDT May Matthew ROBERTSONN LAB BLOOD ORDERABLES Final Result Performing Organization Address City/[facility]/ZIP Co de Phone Number [facility] [address] [place] [address] documented in this encounter Visit Diagnoses Diagnosis [...] documented as of this encounter Care Teams Export Packer Relationship Specialty Start Date End Date Alma Gross APRN [address] [place] [address] PCP - General 05/08/23 documented as of this encounter
--- OUTSIDE RECORDS SUMMARY | 2025-02-06 13:25 | XMS_ITS | Encounter Summary ---
Author Organization [facility] Address [address] [place] [address] Care Team Providers Care Lifter/Driver Name Role Phone Alma Gross SHERWIN Primary Care Provider +1- [phone] Reason for Referral * Imaging (Routine) - Closed Specialty Diagnoses / Procedures Referred By Joyce jones Referred To Contact Radiology Diagnoses Shortness of breath Procedures CT Chest wo IV Contrast May, [address] [address] Phone: tel: fax: Referral ID Status Reason Start Date Expiration Date Visits Re quested Visits Authorized [id number] Closed 01/07/2025 07/09/2026 1 1 Reason for Visit * Imaging (Routine) - Closed Specialty Diagnoses / Procedures Referred By Joyce jones Referred To Contact Radiology Diagnoses Shortness of breath Procedures CT Chest wo IV Contrast May, [address] [facility] [address] [place] [address] Phone: tel: fax: Referral ID Status Reason Start Date Expiration Date Visits Re quested Visits Authorized [id number] Closed 01/07/2025 07/09/2026 1 1 Encounter Details Date Type Department Care Team (Latest Contact Info) Description 02/06/2025 1:25 PM EDT - 02/06/2025 11:59 PM EDT Hospital Encounter [facility] [address] [place] [address] Shortness of breath Discharge Disposition: [...] Description 03/04/2025 9:00 AM EDT Office Visit [facility] Medicine Specialties [address] [place] [address] Leonel Gonzalez MD [address] [facility] [address] [place] [address] 03/04/2025 11:00 AM EDT Office Visit [facility] Medicine Specialties [address], [address] [place] [address] Cristel Castro, SHERWIN [address] [place] [address] documented as of this encounter Procedures Procedure [...] Suarez MD on 02/06/2025 2:52 PM May R Matthew MANAGED CARE COORDINATOR IMG CT PROCEDURES Final Res ult documented [...] documented as of this encounter Care Teams Lifter/Driver Relationship Specialty Start Date End Date Alma Gross APRN [address] [place] [id number] PCP - General 05/08/23 documented as of this encounter
[2025-02-20 13:56] LABS: Hematocrit 44.0 % (37.0-47.0); Hemoglobin 14.3 g/dL (12.2-16.2); Immature Granulocytes % 0.4 %; Mean Corpuscular HGB Conc 32.5 g/dL (31.8-35.4); Mean Corpuscular Hemoglobin 31.3 pg (27.0-31.2); Mean Corpuscular Volume 96.3 fl (81-99); Nucleated Red Blood Cells % 0 %; Platelet Count 284 K/mm3 (142-424); Red Blood Count 4.57 M/mm3 (4.20-5.40); Red Cell Distribution Width-SD 49.3 fL; White Blood Count 10.2 K/mm3 (4.8-10.8)
[2025-02-20 14:49] LABS: 25-OH Vitamin D, Total 28.0 ng/mL (30-100)
[2025-02-20 15:08] LABS: Ferritin 62.0 ng/ml (11.1-264)
[2025-02-20 15:24] LABS: Vitamin B12 242 pg/mL (239-931)
--- OUTSIDE RECORDS SUMMARY | 2025-02-23 09:12 | XMS_ITS | Encounter Summary ---
Author Organization [facility] Address [address] [place] [address] Care Team Providers Care Wrecker Operator Name Role Phone Alma Gross SHERWIN Primary Care Provider +1- [phone] Encounter Details Date Type Department Care Team [...] way Not at all 01/07/2025 2:27 PM CINDYT Ayush Cooper Patient Health Questionnaire -9 Score 0 01/07/2025 2:27 PM CINDYT Ayush Cooper * How difficult have these problems made it for you to do your work, take care of things at home, or get along with other people? Answer Date of Assessment Author Not difficult at all 01/07/2025 2:27 PM EDT Ayush Weiss documented as of this encounter Plan of Treatment Upcoming Encounters Date Type Department Care Team (Late st Contact Info) Description 03/04/2025 9:00 AM EDT Office Visit [facility] Medicine Specialties [address], [address] [place] [address] Leonel Gonzalez MD [address] [place] [address] 03/04/2025 11:00 AM EDT Office Visit [facility] Medicine Specialties [address], [address] [place] [address] Cristel Castro R, DIRECTIONAL DRILLER [address] [place] [address] documented as of this encounter [...] documented as of this encounter Care Teams Wrecker Operator Relationship Specialty Start Date End Date Alma Gross APRN [address] [place] [address] PCP - General 05/08/23 documented as of this encounter
--- OUTSIDE RECORDS SUMMARY | 2025-02-23 09:12 | XMS_ITS | Encounter Summary ---
Author Organization [facility] Address [address] [place] [address] Care Team Providers Care Order Clerk Name Role Phone Alma Gross SHERWIN Primary Care Provider +1- [phone] Reason for Referral * Imaging (Routine) - Authorized Specialty Diagnoses / Procedures Referred By Joyce jones Referred To Contact Cardiology Diagnoses Shortness of breath Procedures Echo, Adult Transthoracic Complete May, [address] [place] [address] Phone: tel: fax: Referral ID Status Reason Start Date Expiration Date Visits Requested Visits Authorized [id number] Authorized Perform Procedure 01/27/2025 07/29/2026 1 1 Encounter Details Date Type Department Care Team (Late st Contact Info) Description 01/27/2025 Telephone [facility] Medicine Specialties [address] [place] [address] Matthewmay, [address] [place] [address] Social History Tobacco Use Types [...] encounter Miscellaneous Notes * Telephone Encounter - Matthew May, FIELD TECHNICAL SUPPORT CONSULTANT - 01/27/2025 12:43 PM EDT Called patient with results. RNA polymerase III ab increased from 58 to 103. She has HRCT scheduledin a week here at . I will get records from [facility], new referral placed to pulmonology for second opinion possible ILD. ECHO ordered. Pt denied skin thickening, she does have GERDwith Dysphagia, Raynaud's but neg SILVIA. Concern for possible Scleroderma. documented in this encounter Plan of Treatment Upcoming Encounters Date Type Department Care Team (Late st Contact Info) Description 03/04/2025 9:00 AM EDT Office Visit [facility] Medicine Specialties [address] [place] [address] Leonel Gonzalez MD [address] [facility] [address] [place] [address] 03/04/2025 11:00 AM EDT Office Visit [facility] Medicine Specialties [address], [address] [place] [address] Matthew May [address] [facility] [address] [place] [address] Scheduled Orders Name Type Priority Associated Diagnoses Order Schedule Echo, Adult Transthoracic Complete Echocardiography Routine Shortness of breath 1 Occurrences starting 01/27/2025 until 07/31/2026 documented as of this encounter Visit Diagnoses Diagnosis Shortness of breath- Primary documented in this encounter Additional Health Concerns Assessment Noted Time PHQ-9 Depression Total Score: 0 01/08/20 2:27 PM EDT A fall risk assessment has been complete d for the patient 01/07/2025 2:27 PM EDT A Body Mass Index follow-up plan has been documented for the patient 01/07/2025 3:27 PM EDT documented as of this encounter Care Teams Order Clerk Relationship Specialty Start Date End Date Alma Gross APRN [address] [place] [address] PCP - General 05/08/23 documented as of this encounter
--- OUTSIDE RECORDS SUMMARY | 2025-02-23 09:12 | XMS_ITS | Encounter Summary ---
Author Organization [facility] Address [address] [place] [address] Care Team Providers Care Investigative Writer Name Role Phone Alma Gross SHERWIN Primary Care Provider +1- [phone] Reason for Visit * Reason Onset Date Comments Cosentyx New Start 01/07/2025 Encounter Details Date Type Department Care Team (Late st Contact Info) Description 01/07/2025 Telephone [facility] Medicine Specialties [address] [place] [address] Nayeli Izaguirre, PharmD Cosentyx New [...] encounter Miscellaneous Notes * Progress Notes - Nayeli Izaguirre, PharmD - 01/07/2025 3:47 PM EDT Per discussion with provider, Cosentyx has been ordered at the request of the provider for 28 day supply with 3 refills to [facility] pharmacy. documented in this encounter Plan of Treatment Upcoming Encounters Date Type Department Care Team (Late st Contact Info) Description 03/04/2025 9:00 AM EDT Office Visit [facility] Medicine Specialties [address] [place] [address] Leonel Gonzalez MD [address] [place] [address] 03/04/2025 11:00 AM EDT Office Visit [facility] Medicine Specialties [address], [address] [place] [address] Cristel Castro APRN [address] [facility] [address] [place] [address] documented as of this encounter Visit Diagnoses Diagnosis Psoriatic arthritis (CMS/HCC)- Primary Psoriatic arthropathy documented in this encounter Additional Health Concerns Assessment Noted Time PHQ-9 Depression Total Score: 0 01/08/20 25 2:27 PM EDT A fall risk assessment has been complete d for the patient 01/07/2025 2:27 PM EDT A Body Mass Index follow-up plan has been documented for the patient 01/07/2025 3:27 PM EDT documented as of this encounter Care Teams Investigative Writer Relationship Specialty Start Date End Date Alma Gross APRN [address] [place] [address] PCP - General 05/08/23 documented as of this encounter
--- OUTSIDE RECORDS SUMMARY | 2025-02-23 09:12 | XMS_ITS | Encounter Summary ---
Author Organization [facility] Address [address] [place] [address] Care Team Providers Care Museum Or Zoo Director Name Role Phone Alma Gross EMBOSSER APPRENTICE Primary Care Provider +1- [phone] Reason for Referral * Imaging (Routine) - Pending Review Specialty Diagnoses / Procedures Referred By Joyce jones Referred To Contact Radiology Diagnoses Hypodense mass of liver Procedures US Abdomen Focused Region Liver May [address] [place] [address] Phone: tel: fax: Referral ID Status Reason Start Date Expiration Date V isits Requested Visits Authorized [id number] Pending Review 02/06/2025 08/08/2026 1 1 Encounter Details Date Type Department Care Team (Late st Contact Info) Description 02/06/2025 Orders Only [facility] [address] [place] [address] May, [address] [place] [address] Hypodense mass of liver (Primary Dx) Social History Tobacco Use Types [...] encounter Miscellaneous Notes * Progress Notes - Matthew May, EMBOSSER APPRENTICE - 02/06/2025 3:07 PM EDT Liver ultrasound ordered for hypodense lesion noted on chest CT. Message sent to patient. documented in this encounter Plan of Treatment Upcoming Encounters Date Type Department Care Team (Late st Contact Info) Description 03/04/2025 9:00 AM EDT Office Visit [facility] Medicine Specialties [address] [place] [address] Leonel Gonzalez MD [address] [facility] [address] [place] [address] 03/04/2025 11:00 AM EDT Office Visit [facility] Medicine Specialties [address] [place] [address] Matthew May, [address] [place] [address] Scheduled Orders Name Type Priority Associated Diagnoses Orde r Schedule US Abdomen Focused Region Liver Imaging Routine Hypodense mass of liver Expected: 02/06/2025 (Approximate), Expires: 08/10/2026 documented as of this encounter Visit Diagnoses Diagnosis Hypodense mass of liver- Primary documented in this encounter Additional Health Concerns Assessment Noted Time PHQ-9 Depression Total Score: 0 01/08/20 25 2:27 PM EDT A fall risk assessment has been complete d for the patient 01/07/2025 2:27 PM EDT A Body Mass Index follow-up plan has been documented for the patient 01/07/2025 3:27 PM EDT documented as of this encounter Care Teams Museum Or Zoo Director Relationship Specialty Start Date End Date Alma Gross APRN [address] [place] [address] PCP - General 05/08/23 documented as of this encounter
--- OUTSIDE RECORDS SUMMARY | 2025-02-23 09:12 | XMS_ITS | Encounter Summary ---
Author Organization [facility] Address [address] [place] [address] Care Team Providers Care Django Developer Name Role Phone Alma Gross CHORUS DANCER Primary Care Provider +1- [phone] Encounter Details Date Type Department Care Team (Late st Contact Info) Description 01/12/2025 Telephone [facility] [address] [place] [address] Matthew, May R, CHORUS DANCER [address] [place] [address] Social History Tobacco Use Types [...] about a PA Best contact number: Other: [phone] Optimal time of day to reach caller: ANYTIME Additional comments/information from caller: None Note: Please do not reply to this message. Follow-up communication and further actions as a result of this message need to be communicated with the patient directly, if the patient is not active onMyChart. If the patient is active on MyChart, they will receive notification of the communication/outcome via [employer] Motionhart. documented in this encounter Plan of Treatment Upcoming Encounters Date Type Department Care Team ([facility] st Contact Info) Description 03/04/2025 9:00 AM EDT Office Visit [facility] Medicine Specialties [address] [place] [address] Leonel Gonzalez MD [address] [facility] [address] [place] [address] 03/04/2025 11:00 AM EDT Office Visit [facility] Medicine Specialties [address] [place] [address] Cristel Castro APRN [address] [facility] [address] [place] [address] documented as of this encounter Visit Diagnoses [...] documented as of this encounter Care Teams Django Developer Relationship Specialty Start Date End Date Alma Gross APRN [address] [place] [address] PCP - General 05/08/23 documented as of this encounter
--- OUTSIDE RECORDS SUMMARY | 2025-02-23 09:12 | XMS_ITS | Encounter Summary ---
Author Organization [facility] Address [address] [place] [address] Care Team Providers Care Concrete Stone Fabricator Name Role Phone Alma Gross TIPPLE ENGINEER Primary Care Provider +1- [phone] Encounter Details Date Type Department Care Team (Late st Contact Info) Description 01/26/2025 Telephone [facility] Specialties [address] [place] [address] Matthew, May R, TIPPLE ENGINEER [address] [place] [address] Social History Tobacco Use Types [...] encounter Miscellaneous Notes * Telephone Encounter - Nevaeh Kay - 01/27/2025 9:50 AM EDT Patient called to follow up regarding pulmonary referral Upon review, it looks like she had an appointment in May, but it got cancelled due to the weather and she saw a provider locally, and the referral got cancelled when the appointment was cancelled Patient told me that provider was really wanting for her to see one of our actuarial analyst's on the ILD team The referral that's in is still good until 2025, but it got cancelled, so she's wondering about getting that reinstated and getting that scheduled CB: [phone] * Telephone Encounter - Tracey Eisenberg - 01/26/2025 11:20 AM EDT Clinical Concern/Question Reason for Call: Pt is calling to follow up on referral for pulmonology. Please call. Best contact number: [phone] (mobile) Optimal time of day to reach caller: ANYTIME Additional comments/information from caller: Not Applicable Note: Please do not reply to this message. Follow-up communication and further actions as a result of this message need to be communicated with the patient directly, if the patient is not active onMyChart. If the patient is active on MyChart, they will receive notification of the communication/outcome via ChaoWIFI. documented in this encounter Plan of Treatment Upcoming Encounters Date Type Department Care Team (Late st Contact Info) Description 03/04/2025 9:00 AM EDT Office Visit [facility] Medicine Specialties [address] [place] [address] Leonel Gonzalez MD [address] [place] [address] 03/04/2025 11:00 AM EDT Office Visit [facility] Medicine Specialties [address] [place] [address] Cristel Castro, TIPPLE ENGINEER [address] [place] [address] documented as of this encounter Visit Diagnoses [...] documented as of this encounter Care Teams Concrete Stone Fabricator Relationship Specialty Start Date End Date Alma Gross, TIPPLE ENGINEER [address] [place] [address] PCP - General 05/08/23 documented as of this encounter
--- OUTSIDE RECORDS SUMMARY | 2025-02-23 09:12 | XMS_ITS | Clinical Summary ---
Author Organization [facility] Address [address] [place] [address] Care Team Providers Care Scuba Dive Training Instructor Name Role Phone Alma Gross Cathy COURTNEY Primary Care Provider [phone]- [phone] Allergies No known active allergies Medications albuterol [...] on 01/07/2025 nicotine (Nicoderm CQ) 7 MG/24HR patchIndications :Encounter [...] or chew. Active famotidine (Pepcid) 20 MG tabletIndication s:Gastroesophage al reflux disease, unspecified whether esophagitis present Take 1 tablet by mouth 2 times a day. 180 tablet 2 5 Active Secukinumab (Cosentyx Sensoready Pen) 150 MG/ML solution auto-injectorInd ications:Psoriat ic arthritis (CMS/HCC) Inject 150 mg under the skin every 28 days. 1 mL 3 5 Active Secukinumab (Cosentyx Sensoready Pen) 150 MG/ML solution auto-injectorInd ications:Psoriat ic arthritis (CMS/HCC) Inject 150 mg (1 pen) under the skin at weeks 0, 1, 2, 3, and 4 followed by 150 mg every 4 weeks. 5 mL 5 Active Active Problems No known active problems Encounters Date Type Department Care Team Description 02/06/2025 1:25 PM EDT - 02/06/2025 11:59 PM EDT Hospital Encounter [facility] [address], [address] [place] [address] Shortness of breath Discharge Disposition: Home or Self Care 02/06/2025 Orders Only [facility] [address], [address] [place] [address] Matthewmay R, SCUBA DIVE TRAINING INSTRUCTOR Hypodense mass of liver (Primary Dx) 02/06/2025 Travel 01/27/2025 Telephone [facility] [address], [address] [place] [address] Matthewmay R, SCUBA DIVE TRAINING INSTRUCTOR 01/27/2025 Orders Only [facility] [address], [address] [place] [phone] May R, SCUBA DIVE TRAINING INSTRUCTOR Shortness of breath (Primary Dx); Chronic obstructive pulmonary disease, unspecified COPD type (CMS/HCC) 01/26/2025 Telephone [facility] [address], [address] [place] [address] May, 01/12/2025 Telephone [facility] [address] [place] [phone] May01/07/2025 2:30 PM EDT Office Visit [facility], [address] [place] [phone] May Psoriatic arthritis (CMS/HCC) (Primary Dx); High risk medication use; Raynaud's phenomenon without gangrene; Chronic obstructive pulmonary disease, unspecified COPD type (CMS/HCC); SILVIA positive; Gastroesophageal reflux disease, unspecified whether esophagitis present; Shortness of breath 01/07/2025 Telephone [facility] [address] [place] [phone] Nayeli Izaguirre, PharmD Cosentyx New Start 01/07/2025 Travel from Last 3 Months Family History Medical History Relation Name Comments Cancer Father Heart disease Father Cancer Mother Heart disease Mother Relation Name Status Comments Father Mother Social History Tobacco Use Types Packs/Day Years Used Date Smoking Tobacco: Every Day Cigarettes 1 46.8 Started: 1980 Smokeless Tobacco: Never Tobacco Cessation:Ready [...] Description 03/04/2025 9:00 AM EDT Office Visit [facility] [address], [address] [place] [address] Leonel Gonzalez MD [address] [place] [address] 03/04/2025 11:00 AM EDT Office Visit [facility] [address], [address] [place] [address] Cristel Castro, SCUBA DIVE TRAINING INSTRUCTOR [address] [place] [address] Health Maintenance Due Date Last [...] Cancer Screening 2008 [facility]-Breast Cancer Screening 2013 [facility]-RSV Vaccine: 60+ Years or (1 - Risk 60-74 years 1-dose series) 2023 [id number]-08 Vaccine (5 - Moderna risk season) 2025 02/05/2024, 03/25/2021, 06/25/2020, Additional history exists [facility]-Influenza Vaccine (#1) 2025 01/28/2024 [facility]-Depression Screening 01/07/2026 01/07/2025, 12/20 [facility]-Lung Cancer Screening 02/06/2026 02/06/2025 [facility]-HIV Screening Completed 05/30/2023 [facility]-Pneumococcal Vaccine: 50+ [...] Comments CT CHEST WO IV CONTRAST Routine 02/07/20 1:58 PM EDT Shortness of breath HEPATITIS B CORE TOTAL AB (IGG AND [...] Recently Relevant to Health Maintenance Results * CT Chest wo IV Contrast [...] Suarez MD on 02/06/2025 2:52 PM may R Matthew COURTNEY IMG CT PROCEDURES Final Res ult * Cryoglobulin, Serum (SO) (01/07/2025 4:03 PM EDT) Pathologist [facility] Cryoglobulin, S Negative Negative %ppt 01/12/2025 10:33 PM EDT [facility] Comment: This test is negative at 24 hours. All samples are held and reviewed again at 7 days. If delayed precipitation occurs after 7 days, Immunofixation will be performed and an additional report will follow. Test Performed by: [facility] [address] [place] [address] Mail List Processor: Barbara Easley Ph.D.; CLIA# [id number] Blood Venous blood specimen / Unknown Venipuncture / Unknown 01/07/2025 4:03 PM EDT 01/07/2025 4:03 PM EDT may R Matthew COURTNEY LAB REF LAB BLOOD AND FLUID ORD Final Result [facility] ([place]) * (ABNORMAL) RNA Polymerase III Antibody, IgG (01/07/2025 4:03 PM EDT) Pathologist [facility] RNA Polymerase III Antibody, IgG 103(H) 0 - 19 Units 01/10/2025 9:46 PM EDT [facility] ([place]) Blood Venous blood specimen / Unknown Venipuncture / Unknown 01/07/2025 4:03 PM EDT 01/07/2025 4:03 PM EDT Narrative [facility] DERRICK GONZALEZ) - 01/10/2025 9:46 PM [...] antibodies associated with SSc, including centromere, Scl-70, U3-WOODEN FRAME BUILDER, PM/Scl, or Th/To. Performed By: [facility] [address] [place] [address] Architectural Examiner: Martell Anton MD, PhD CLIA Number: [id number] May [facility] LAB BLOOD ORDERABLES Final Result [facility] ([place]) [address] [place] [address] * Centromere Antibody, IgG (01/07/2025 4:03 PM EDT) Pathologist [facility] Centromere Ab, IgG 0 0 - 40 AU/mL 01/11/2025 12:33 AM EDT [facility] ([place]) Blood Venous blood specimen / Unknown Venipuncture / Unknown 01/07/2025 4:03 PM EDT 01/07/2025 4:03 PM EDT Narrative [facility] DERRICK GONZALEZ) - 01/11/2025 12:33 AM EDT [...] other antibodies associated with SSc, including Scl-70, U3-WOODEN FRAME BUILDER, PM/Scl, or Th/To. Performed By: [facility] [address] [place] [address] Architectural Examiner: Martell Anton MD, PhD CLIA Number: [id number] May R Matthew COURTENY LAB BLOOD ORDERABLES Final Result [facility]ISA) [address] [id number] * Hepatitis C Antibody (01/07/2025 4:03 PM EDT) Hepatitis C Antibody Negative Negative 01/07/2025 7:32 PM EDT [facility] Blood Venous blood specimen / Unknown Venipuncture / Unknown 01/07/2025 4:03 PM EDT 01/07/2025 4:03 PM EDT May R Matthew ROBERTSONN LAB BLOOD ORDERABLES Final Result [facility] [address] [place] [address] * Anti-scleroderma antibody (01/07/2025 4:03 PM EDT) SCLERODERMA (SCL-70) ([place]) ANTIBODY, IGG 0 0 - 40 AU/mL 01/11/2025 12:33 AM EDT [facility] ([place]) Blood [...] testing for centromere, RNA polymerase III and U3-WOODEN FRAME BUILDER, PM/Scl, or Th/To antibodies. Performed By: [facility] [address] [place] [address] Architectural Examiner: Martell Anton MD, PhD CLIA Number: [id number] may R Matthew SCUBA DIVE TRAINING INSTRUCTOR LAB BLOOD ORDERABLES Final Result [facility] ([place]) [address] [place] [address] * Hepatitis B Core Total Antibody IgG,IgM (01/07/2025 4:03 PM EDT) Hepatitis B Core Total Antibody IgG,IgM Negative Negative 01/07/2025 8:30 PM EDT [facility] Blood Venous blood specimen / Unknown Venipuncture / Unknown 01/07/2025 4:03 PM EDT 01/07/2025 4:03 PM EDT may R Matthew SCUBA DIVE TRAINING INSTRUCTOR LAB BLOOD ORDERABLES Final Result [facility] [address] [place] [address] * Quantiferon TB Gold Plus (01/07/2025 4:03 PM EDT) Quantiferon TB Gold Plus Result Negative Negative 01/08/2025 7:53 PM EDT [facility] TB Nill Value 0.0403 IU/mL 01/08/2025 7:53 PM EDT [facility] TB Antigen 1 0.0249 IU/mL 01/08/2025 7:53 PM EDT [facility] TB Antigen 2 0.0152 IU/mL 01/08/2025 7:53 PM EDT [facility] TB Mitogen 9.9597 IU/mL 01/08/2025 7:53 PM EDT [facility] Blood Venous blood specimen / Unknown Venipuncture / Unknown 01/07/2025 4:03 PM EDT 01/07/2025 4:03 PM EDT Narrative [facility] - 01/08/2025 7:53 PM EDT Responses to the Mitogen positive control and occasionally to TB antigen can be above the assay range. For calculation purposes: IFN-gamma values > 10 IU/mL are handled as 10 IU/mL. May R Matthew SCUBA DIVE TRAINING INSTRUCTOR LAB BLOOD ORDERABLES Final Result Performing Organization Address City/[facility]/ZIP Co de Phone Number [facility] [address] [place] [address] * Creatinine, Plasma (01/07/2025 4:03 PM EDT) Creatinine, Plasma 0.68 0.60 - 1.10 mg/dL 01/07/2025 7:54 PM EDT [facility] eGFRcr 99.2 mL/min/1.7 3m*2 01/07/2025 7:54 PM EDT [facility] Comment:Reported eGFRcr in m L/min/1.73m2 is based the CKD-EPI 2020 equation that does not use a race coefficient. Blood Venous blood specimen / Unknown Venipuncture / Unknown 01/07/2025 4:03 PM EDT 01/07/2025 4:03 PM EDT May R Matthew SCUBA DIVE TRAINING INSTRUCTOR LAB BLOOD ORDERABLES Final Result Performing Organization Address City/[facility] Co de Phone Number [facility] [address] [place] [address] * (ABNORMAL) CBC and Differential (01/07/2025 4:03 PM EDT) WBC Count 9.02 3.70 - 10.30 10*3/uL LAB HEMATOLOGY METHOD 01/07/2025 7:08 PM EDT [facility] RBC Count 4.66 3.90 - 5.20 10*6/uL LAB HEMATOLOGY METHOD 01/07/2025 7:08 PM EDT [facility] HGB 14.5 11.2 - 15.7 g/dL LAB HEMATOLOGY METHOD 01/07/2025 7:08 PM EDT [facility] HCT 43.6 34.0 - 45.0 % LAB HEMATOLOGY METHOD 01/07/2025 7:08 PM EDT [facility] Platelet Count 269 155 - 369 10*3/uL LAB HEMATOLOGY METHOD 01/07/2025 7:08 PM EDT [facility] MCV 94 79 - 98 fL LAB HEMATOLOGY METHOD 01/07/2025 7:08 PM EDT [facility] MCH 31.1 26.0 - 32.0 pg LAB HEMATOLOGY METHOD 01/07/2025 7:08 PM EDT [facility] MCHC 33.3 30.7 - 35.5 g/dL LAB HEMATOLOGY METHOD 01/07/2025 7:08 PM EDT [facility] RDW 13.7 11.5 - 14.5 % LAB HEMATOLOGY METHOD 01/07/2025 7:08 PM EDT [facility] MPV 11.7 8.8 - 12.5 fL LAB HEMATOLOGY METHOD 01/07/2025 7:08 PM EDT [facility] nRBC 0.0 <=0.0 per 100 WBCs LAB HEMATOLOGY METHOD 01/07/2025 7:08 PM EDT [facility] Differential Type Automated LAB HEMATOLOGY METHOD 01/07/2025 7:08 PM EDT [facility] Neutrophils % 68 % LAB HEMATOLOGY METHOD 01/07/2025 7:08 PM EDT [facility] Lymphocytes % 21 % LAB HEMATOLOGY METHOD 01/07/2025 7:08 PM EDT [facility] Monocytes % 8 % LAB HEMATOLOGY METHOD 01/07/2025 7:08 PM EDT [facility] Eosinophils % 2 % LAB HEMATOLOGY METHOD 01/07/2025 7:08 PM EDT [facility] Basophils % 1 % LAB HEMATOLOGY METHOD 01/07/2025 7:08 PM EDT [facility] Immature Granulocytes % 0 % LAB HEMATOLOGY METHOD 01/07/2025 7:08 PM EDT [facility] Neutrophils Absolute 6.21(H) 1.60 - 6.10 10*3/uL LAB HEMATOLOGY METHOD 01/07/2025 7:08 PM EDT [facility] Lymphocytes Absolute 1.90 1.20 - 3.90 10*3/uL LAB HEMATOLOGY METHOD 01/07/2025 7:08 PM EDT [facility] Monocytes Absolute 0.70 0.30 - 0.90 10*3/uL LAB HEMATOLOGY METHOD 01/07/2025 7:08 PM EDT [facility] Eosinophils Absolute 0.14 0.00 - 0.50 10*3/uL LAB HEMATOLOGY METHOD 01/07/2025 7:08 PM EDT [facility] Basophils Absolute 0.05 0.00 - 0.10 10*3/uL LAB HEMATOLOGY METHOD 01/07/2025 7:08 PM EDT [facility] Immature Granulocytes Absolute 0.02 0.00 - 0.06 10*3/uL LAB HEMATOLOGY METHOD 01/07/2025 7:08 PM EDT [facility] Blood Venous blood specimen / Unknown Venipuncture / Unknown 01/07/2025 4:03 PM EDT 01/07/2025 4:03 PM EDT Narrative [facility] - 01/07/2025 7:08 PM EDT Therapeutic decision making should be based on absolute values, rather than percentages. May Matthew ROBERTSONN LAB BLOOD ORDERABLES Final Result Performing Organization Address City/[facility]/ZIP Co de Phone Number [facility] [address] [place] [address] * Rheumatoid Factor, Plasma (01/07/2025 4:03 PM EDT) Rheumatoid Factor, Plasma <10 <14 IU/mL 01/07/2025 10:33 PM EDT [facility] Blood Venous blood specimen / Unknown Venipuncture / Unknown 01/07/2025 4:03 PM EDT 01/07/2025 4:03 PM EDT May Matthew COURTNEY LAB BLOOD ORDERABLES Final Result Performing Organization Address City/[facility]/ZIP Co de Phone Number [facility] [address] [place] [address] * (ABNORMAL) C3 Complement (01/07/2025 4:03 PM EDT) C3 Complement 174(H) 84 - 166 mg/dL 01/07/2025 10:33 PM EDT [facility] Blood Venous blood specimen / Unknown Venipuncture / Unknown 01/07/2025 4:03 PM EDT 01/07/2025 4:03 PM EDT May Matthew SCUBA DIVE TRAINING INSTRUCTOR LAB BLOOD ORDERABLES Final Result Performing Organization Address City/[facility]/ZIP Co de Phone Number [facility] [address] [place] [address] * C4 Complement (01/07/2025 4:03 PM EDT) C4 Complement 29 13 - 36 mg/dL 01/07/2025 10:33 PM EDT [facility] Blood Venous blood specimen / Unknown Venipuncture / Unknown 01/07/2025 4:03 PM EDT 01/07/2025 4:03 PM EDT May [facility] SCUBA DIVE TRAINING INSTRUCTOR LAB BLOOD ORDERABLES Final Result Performing Organization Address [facility] Co de Phone Number [facility] [address] [place] [address] * (ABNORMAL) C-Reactive Protein, Plasma (01/07/2025 4:03 PM EDT) Pathologist [facility] CRP, Plasma 11.5(H) <=8.0 mg/L 01/07/2025 7:54 PM EDT [facility] Blood Venous blood specimen / Unknown Venipuncture / Unknown 01/07/2025 4:03 PM EDT 01/07/2025 4:03 PM EDT Narrative [facility] - 01/07/2025 7:54 PM EDT This CRP test is appropriate for assessment of infection, systemic inflammation and/or tissue injury. To assess cardiovascular disease risk order high sensitivity CRP (CRPH). may Matthew SCUBA DIVE TRAINING INSTRUCTOR LAB BLOOD ORDERABLES Final Result Performing Organization Address [facility] Co de Phone Number [facility] [address] [place] [address] * ANTI NUCLEAR AB (01/07/2025 4:03 PM EDT) SILVIA INTERPRETIVE COMMENT See Note 01/10/2025 5:13 PM EDT [facility] ([facility]) Anti Nuc Ab Screen <1:80 <1:80 01/10/2025 5:13 PM EDT [facility] ([facility]) Blood Venous [...] not necessarily rule out SARD. Performed By: [facility] [address] [place] [address] Architectural Examiner: Martell Anton MD, PhD CLIA Number: [id number] may Matthew SCUBA DIVE TRAINING INSTRUCTOR LAB BLOOD ORDERABLES Final Result [facility] ([place]) [address] [place] [address] * Hepatic Function Panel (01/07/2025 4:03 PM EDT) Direct Bilirubin, Plasma <0.2 <=0.3 mg/dL 01/07/2025 7:54 PM EDT [facility] Alkaline Phosphatase, Plasma 90 46 - 142 U/L 01/07/2025 7:54 PM EDT [facility] Total Bilirubin, Plasma 0.2 0.2 - 1.1 mg/dL 01/07/2025 7:54 PM EDT [facility] Albumin, Plasma 3.8 3.5 - 5.2 g/dL 01/07/2025 7:54 PM EDT [facility] Total Protein 6.4 6.3 - 7.9 g/dL 01/07/2025 7:54 PM EDT [facility] ALT, Plasma 26 10 - 35 U/L 01/07/2025 7:54 PM EDT [facility] AST, Plasma 30 10 - 35 U/L 01/07/2025 7:54 PM EDT [facility] Blood Venous blood specimen / Unknown Venipuncture / Unknown 01/07/2025 4:03 PM EDT 01/07/2025 4:03 PM EDT May R Matthew SCUBA DIVE TRAINING INSTRUCTOR LAB BLOOD ORDERABLES Final Result Performing Organization Address City/[facility] Co de Phone Number [facility] [address] [place] [address] * HIV 1 & 2 Antibody/Antigen Screen (05/30/2023 1:32 PM EST) Pathologist [facility] HIV 1 & 2 Antibody/Antigen Screen Non Reactive Non Reactive 05/30/2023 3:32 PM EST [facility] Comment:Screening for HIV 1 & 2 antibodies, and P24 antigen is NONREACTIVE. No confirmatory testing is required. Blood Venous blood specimen / Unknown Venipuncture / Unknown 05/30/2023 1:32 PM EST 05/30/2023 1:34 PM EST May R Matthew SCUBA DIVE TRAINING INSTRUCTOR LAB BLOOD ORDERABLES Final Result [facility] [address] [place] [address] from Last 3 Months or Most Recently Relevant to Health Maintenance Insurance CIG DENTAL CLAIMS [facility] Care Teams Scuba Dive Training Instructor Relationship Specialty Start Date End Date Alma Gross APRN [address] [place] [address] PCP - General 05/08/23
--- OUTSIDE RECORDS SUMMARY | 2025-02-23 09:12 | XMS_ITS | Encounter Summary ---
Author Organization [facility] Address [address] [place] [address] Care Team Providers Care Cleat Blanker Name Role Phone Alma Gross Cathy COURTNEY Primary Care Provider [phone]- [phone] Reason for Referral * Consultation (Routine) - Authorized Specialty Diagnoses / Procedures Referred By Joyce jones Referred To Contact Pulmonology Diagnoses Chronic obstructive pulmonary disease, unspecified COPD type (CMS/HCC) Shortness of breath Matthew May, EXPLOSIVES TRUCK DRIVER [address] [place] [address] Phone: tel: fax: [facility] [address] [place] [address] Phone: tel: fax: Referral ID Status Reason Start Date Expiration Date Visits Requested Visits Authorized [id number] Authorized Specialty Services Required 01/27/2025 07/29/2026 1 1 Encounter Details Date Type Department Care Team (Late st Contact Info) Description 01/27/[address] [facility] Medicine Specialties [address] [place] [address] Matthew May, EXPLOSIVES TRUCK DRIVER [address] [place] [address] Shortness of breath (Primary Dx); Chronic obstructive pulmonary disease, unspecified COPD type (CMS/HCC) Social History Tobacco Use Types Packs/Day [...] Description 03/04/2025 9:00 AM EDT Office Visit [facility] Specialties [address] [place] [address] Leonel Gonzalez MD [address] [facility] [address] [place] [address] 03/04/2025 11:00 AM EDT Office Visit [facility] [address] [place] [address] Cristel Castro APRN [address] [place] [address] Scheduled Referrals Name Type Priority Associated Diagnoses Orde r Schedule Pulmonology Outpatient Referral Routine Chronic obstructive pulmonary disease, unspecified COPD type (CMS/HCC) Shortness of breath 1 Occurrences starting 01/27/2025 until 07/31/2026 documented as of this encounter Visit Diagnoses Diagnosis Shortness of breath- Primary Chronic obstructive pulmonary disease, unspecified COPD type (CMS/HCC) documented in this encounter Additional Health Concerns Assessment Noted Time PHQ-9 Depression Total Score: 0 01/08/20 25 2:27 PM EDT A fall risk assessment has been complete d for the patient 01/07/2025 2:27 PM EDT A Body Mass Index follow-up plan has been documented for the patient 01/07/2025 3:27 PM EDT documented as of this encounter Care Teams Cleat Blanker Relationship Specialty Start Date End Date Alma Gross APRN [address] [place] [address] PCP - General 05/08/23 documented as of this encounter
--- OUTSIDE RECORDS SUMMARY | 2025-02-23 09:12 | XMS_ITS | Encounter Summary ---
Author Organization Healthcare Address [address] [place] [address] Care Team Providers Care Practice Administrator Name Role Phone Alma Gross SHERWIN Primary Care Provider +1- [phone] Encounter Details Date Type Department Care Team (Latest Contact Info) Description 02/06/2025 Travel Social History Tobacco Use Types Packs/Day [...] Description 03/04/2025 9:00 AM EDT Office Visit [facility] [address] [place] [address] Leonel Gonzalez MD [address] [place] [address] 03/04/2025 11:00 AM EDT Office Visit [facility] [address] [place] [address] Cristel Castro R, BINDER COVERSTITCH [address] [place] [address] documented as of this encounter [...] documented as of this encounter Care Teams Practice Administrator Relationship Specialty Start Date End Date Alma Gross, BINDER COVERSTITCH [address] [place] [address] PCP - General 05/08/23 documented as of this encounter
--- OUTSIDE RECORDS SUMMARY | 2025-02-23 09:13 | XMS_ITS | Clinical Summary ---
[facility] Address [address] [place] [address] Care Team Providers Care Bench Grinder Name Role Phone Alma Gross APRN Primary Care Provider [phone] Allergies No known active allergies Medications albuterol [...] Description 12/09/2024 1:30 PM EDT Office Visit [facility] [address] [address] Jose Salmon MD Chronic bilateral low back pain without sciatica (Primary Dx); Spondylolisthesis of lumbar region; Chronic neck pain; History of fusion of cervical spine 12/09/2024 Travel 12/09/2024 Telephone [facility] [address] [address] Jose Salmon MD 12/08/2024 Results Follow-Up [facility] [address] [address] Jose Salmon MD 12/02/2024 Patient rounding [place] [place] [facility] [address] [address] Yumiko Petit MA 11/28/2024 11:00 AM EDT Office Visit [facility] [address] [address] Jose Salmon MD Chronic neck pain (Primary Dx); History of fusion of cervical spine; Chronic bilateral low back pain without sciatica; Spondylolisthesis of lumbar region 11/28/2024 Travel from Last 3 Months Social History Tobacco [...] Date Last Done Comments Annual Gynecologic Pelvic and Breast Exam 1963 TDAP/TD VACCINES (1 - Tdap) 1982 PAP SMEAR 1984 MAMMOGRAM 2003 COLOGUARD 2008 COLON CANCER SCREENING 5 YEAR SIGMOIDOSCOPY 2008 COLONOSCOPY 2008 [address] CANCER SCREENING 2008 CT COLONOGRAPHY 2008 FECAL OCCULT BLOOD TEST 2008 FIT Testing (1 year) 2008 ZOSTER VACCINE (1 of 2) 2013 ANNUAL PHYSICAL 10/27/2024 INFLUENZA VACCINE 12/19/2024 01/28/2024 HEPATITIS C SCREENING Completed 05/30/2023 Pneumococcal Vaccine 50+ Completed 01/28/2024 Procedures Procedure Name Priority Date/Time Associated Diagnosis Comments MRI OUTSIDE FILMS Routine 12/04/2024 12: 00 AM EDT MRI LUMBAR SPINE WO CONTRAST Routine 12/04/2024 Chronic bilateral low back pain without sciatica Spondylolisthesis of lumbar region from Last 3 Months Results * MRI outside films (12/04/2024 12:00 AM EDT) Narrative SYSTEMGENERATED, DOCUMENTATION - 12/09/2024 12:53 PM EDT This procedure was auto-finalized with no dictation required. Jose Salmon MD [facility] [place] ORDERABLES Fin al Result * MRI Lumbar Spine Without Contrast (12/04/2024) Anatomical Region Laterality Modality Spine, L-spine N/A Magnetic Resonan ce Jose Salmon MD [facility] [place] ORDERABLES Fin al Result from Last 3 Months Insurance Care Teams Bench Grinder Relationship Specialty Start Date End Date Alma Gross APRN [address] [facility] [address] [facility] [address] [address] PCP - General Internal Medicine 07/01/24
--- OUTSIDE RECORDS SUMMARY | 2025-02-23 09:13 | XMS_ITS | Encounter Summary ---
[facility] [address] [place] [address] Care Team Providers Care Mechanical Field Engineer Name Role Phone Alma Gross APRN Primary Care Provider [phone] Encounter Details Date Type Department Care Team (Late st Contact Info) Description 12/08/2024 Results Follow-Up [facility] 4003 [facility] [address] [place] [phone] Jose Salmon MD 4003 [facility] [address] [place] [address] Social History Tobacco Use Types Packs/Day Years [...] on filedocumented in this encounter Care Teams Mechanical Field Engineer Relationship Specialty Start Date End Date Alma Gross APRN [address] [place] [address] [place] [address] PCP - General Internal Medicine 07/01/24 documented as of this encounter
== END 2025-02-20 23:59 ==
LOC: LAB.DROPOF 02-23 09:04
PROVIDERS: PCP Nurse Practitioner Family; Visit Provider Nurse Practitioner Family
DX: L40.9 Psoriasis, unspecified (principal); D64.9 Anemia, unspecified
CPT/HCPCS: 82306; 82607; 82728; 85025

== ENCOUNTER 2025-03-05 12:07 | Emergency (ER) | payer OTHER, SELFPAY ==
--- OUTSIDE RECORDS SUMMARY | 2025-01-07 14:30 | XMS_ITS | Encounter Summary ---
Author Organization Healthcare Address [address] [place] [address] Care Team Providers Care [employer] Business Teacher Name Role Phone Alma Gross TENTER FRAME OPERATOR Primary Care Provider [phone] Reason for Referral * Imaging (Routine) - Closed Specialty Diagnoses / Procedures Referred By Joyce jones Referred To Contact Radiology Diagnoses Shortness of breath Procedures CT Chest wo IV Contrast May [address] [facility] [address] [place] [address] Phone: tel: fax: Referral ID Status Reason Start Date Expiration Date Visits Re quested Visits Authorized [id number] Closed 01/07/2025 07/09/2026 1 1 Reason for Visit * Reason Comments Follow-up Psoriatic arthritis (CMS/HCC) Encounter Details Date Type Department Care Team (Late st Contact Info) Description 01/07/2025 2:30 PM EDT [facility] [address] [place] [address] May, TENTER FRAME OPERATOR [address] [place] [address] Psoriatic arthritis (CMS/HCC) (Primary Dx); High risk medication use; Raynaud's phenomenon without gangrene; Chronic obstructive pulmonary disease, unspecified COPD type ([facility]); SILVIA positive; Gastroesophageal reflux disease, unspecified whether esophagitis present; Shortness of breath Social History Tobacco Use Types Packs/Day Years Used Date Smoking Tobacco: Every Day Cigarettes 1 46.8 Started: 1980 Smokeless Tobacco: Never Alcohol Use [...] 01/07/2025 2:27 PM EDT Ayush Cooper * How difficult have these problems made it for you to do your work, take care of things at home, or get along with other people? Answer Date of Assessment Author Not difficult at all 01/07/2025 2:27 PM EDT Ayush Weiss documented as of this encounter Miscellaneous Notes * Progress Notes - Matthew, May R, TENTER FRAME OPERATOR - 01/07/2025 2:30 PM EDT Subjective Patient [...] Neurosurgery for spine pain. He is in [facility]. Getting an injection in each SI [...] No hx of alcohol abuse. 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 [place] The following portions of the chart were reviewed this encounter and updated as appropriate: Past Medical History: Diagnosis Date Achilles tendon tear Asthma Bunion Carpal tunnel syndrome COPD (chronic obstructive pulmonary disease) ([facility]) Fallen arches Gallstone Herniated cervical disc [...] file Social Connections: Unknown (03/02/2023) Received from [facility] Family and Community Support Help with Day-to-Day Activities: Not on file Lonely or Isolated: Not on file Intimate Partner Violence: Unknown (03/02/2023) Received from [facility] Abuse Screen Unsafe at Home or Work/School: Not on file Feels Threatened by Someone?: Not on file Does Anyone Keep You from Contacting Others or Doint Things Outside the Home?: Not on file Physical Sign of Abuse Present: Not on file Housing Stability: Unknown (03/02/2023) Received from [facility] Housing Stability Current Living Arrangements: Not on [...] andcomplete the homunculus joint exam. Joint Exam 01/07/2025 No joint exam has been documented for this visit 05/30/2023 06/27/2023 04/09/2024 RAMIREZ-28 (ESR) -- -- -- RAMIREZ-28 (CRP) -- -- -- Tender (RAMIREZ-28) Swollen (RAMIREZ-28) 0 0 Provider Global -- -- -- [...] ? Raynaud's on feet noticed recently +GERD Stuart criteria + family hx + nail dystrophy [...] of chronic medical conditions. Treatment optionswere discussed, [id number] 5. 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 As a result, errors may occur. When identified, these pillar worker errors are corrected, but while every attempt is made to prevent/correct these, errors may still exist. , documented in this encounter Plan of Treatment Upcoming Encounters Date Type Department Care Team (Late st Contact Info) Description 03/24/2025 9:30 AM EST Office Visit [facility] Medicine Specialties [address] [place] [id number] Matthew, May R, TENTER FRAME OPERATOR [address] [place] [address] 03/27/2025 8:00 AM EST Office Visit [facility] Medicine Specialties [address] [place] [address] Kirby Arthur MD [address] [place] [address] documented as of this encounter Results * CT Chest wo IV Contrast (02/06/2025 1:58 PM EDT) Anatomical Region Laterality Modality Chest Computed Tomogra phy Impressions 02/06/2025 2:52 PM EDT No evidence of significant chronic interstitial change/fibrosis. Mild bilateral scattered scarring with upper lobe predominant emphysema. Indeterminate hypodensity in the right hepatic lobe. Correlation with sonogram or preferably MRI is recommended. CRITICAL RESULT: No. COMMUNICATION: Per this written report. Drafted by Teddy Suarez MD on 02/06/2025 2:32 PM Final report signed by Teddy Suarez MD on 02/06/2025 2:52 PM Narrative 02/06/2025 2:52 PM EDT CLINICAL INDICATION: possible ILD + COPD Possible systemic sclerosis TECHNIQUE: Multiple axial CT images obtained from thoracic inlet through upper abdomen without administration of IV contrast per CT High resolution chest protocol. Additional HRCT images were obtained in inspiration. The imaging protocol used in this examination was optimized to achieve diagnostic quality with the lowest possible radiation dose in accordance with the principles of ALARA (As Low As Reasonably Achievable). COMPARISON: None. FINDINGS: Mediastinum and Pleura: No mediastinal adenopathy. No pleural or pericardial effusion. Lungs: Small biapical pleural-parenchymal thickening/scarring. No significant subpleural reticulation/fibrosis. There is also mild bilateral lower lobe subpleural atelectasis or scarring. Bilateral lower lobe bronchial wall thickening. No evidence of honeycombing. No focal consolidation. No significant air trapping. Upper lobe predominant emphysema. Upper Abdomen: Indeterminate hypodensity in the right hepatic lobe measuring 1.6 cm. Musculoskeletal: No suspicious lytic or sclerotic lesion. Procedure Note Teddy Suarez MD - 02/06/2025 CLINICAL INDICATION: possible ILD + COPD Possible systemic sclerosis TECHNIQUE: Multiple axial CT images obtained from thoracic inlet through upperabdomen without administration of IV contrast per CT High resolution chestprotocol. Additional HRCT images were obtained in inspiration. The imaging protocol used in this examination was optimized to achievediagnostic quality with the lowest possible radiation dose in accordancewith the principles of ALARA (As Low As Reasonably Achievable). COMPARISON: None. FINDINGS: Mediastinum and Pleura: No mediastinal adenopathy. No pleural orpericardial effusion. Lungs: Small biapical pleural-parenchymal thickening/scarring. Nosignificant subpleural reticulation/fibrosis. There is also mild bilaterallower lobe subpleural atelectasis or scarring. Bilateral lower lobebronchial wall thickening. No evidence of honeycombing. No focalconsolidation. No significant air trapping. Upper lobe predominantemphysema. Upper Abdomen: Indeterminate hypodensity in the right hepatic lobemeasuring 1.6 cm. Musculoskeletal: No suspicious lytic or sclerotic lesion. IMPRESSION: No evidence of significant chronic interstitial change/fibrosis. Mild bilateral scattered scarring with upper lobe predominant emphysema. Indeterminate hypodensity in the right hepatic lobe. Correlation withsonogram or preferably MRI is recommended. CRITICAL RESULT: No. COMMUNICATION: Per this written report. Drafted by Teddy Suarez MD on 02/06/2025 2:32 PM Final report signed by Teddy Suarez MD on 02/06/2025 2:52 PM may Matthwe TENTER FRAME OPERATOR IMG CT PROCEDURES Final Res ult * Rheumatoid Factor, Plasma (01/07/2025 4:03 PM EDT) Rheumatoid Factor, Plasma <10 <14 IU/mL 01/07/2025 10:33 PM EDT [facility] Blood Venous blood specimen / Unknown Venipuncture / Unknown 01/07/2025 4:03 PM EDT 01/07/2025 4:03 PM EDT May Matthew TENTER FRAME OPERATOR LAB BLOOD ORDERABLES Final Result [facility] [address] [place] [address] * Cryoglobulin, Serum (SO) (01/07/2025 4:03 PM EDT) [facility] Cryoglobulin, S Negative Negative %ppt 01/12/2025 10:33 PM EDT [facility] ([facility]) Comment: This test is negative at 24 hours. All samples are held and reviewed again at 7 days. If delayed precipitation occurs after 7 days, Immunofixation will be performed and an additional report will follow. Test Performed by: [facility] [address] [place] [address] Filter Machine Operator: Barbara Easley Ph.D.; CLIA# [id number] Blood Venous blood specimen / Unknown Venipuncture / Unknown 01/07/2025 4:03 PM EDT 01/07/2025 4:03 PM EDT May Matthew TENTER FRAME OPERATOR LAB REF LAB BLOOD AND FLUID ORD Final Result [facility]) * ANTI NUCLEAR AB (01/07/2025 4:03 PM EDT) [facility] SILVIA INTERPRETIVE COMMENT See Note 01/10/2025 5:[address] [facility] ([employer]) Anti Nuc Ab Screen <1:80 <1:80 01/10/2025 5:[address] [facility] ([employer]) Blood Venous blood specimen / Unknown Venipuncture / Unknown 01/07/2025 4:03 PM EDT 01/07/2025 4:03 PM EDT Narrative [facility] LISA) - 01/10/2025 5:13 PM EDT Clinical Interpretation: [...] not necessarily rule out SARD. Performed By: [facility] [address] [place] [address] Laborer Drying Department: Martell Anton MD, PhD CLIA Number: [id number] May R Matthew COURTNEY LAB BLOOD ORDERABLES Final Result [facility] [employer] ([facility]KE) [address] [place] [address] * C4 Complement (01/07/2025 4:03 PM EDT) C4 Complement 29 13 - 36 mg/dL 01/07/2025 10:33 PM EDT [facility] Blood Venous blood specimen / Unknown Venipuncture / Unknown 01/07/2025 4:03 PM EDT 01/07/2025 4:03 PM EDT May Matthew ROBERTSONN LAB BLOOD ORDERABLES Final Result Performing Organization Address City/[facility]/ZIP Co de Phone Number [facility] [address] [place] [address] * (ABNORMAL) C3 Complement (01/07/2025 4:03 PM EDT) C3 Complement 174(H) 84 - 166 mg/dL 01/07/2025 10:33 PM EDT [facility] Blood Venous blood specimen / Unknown Venipuncture / Unknown 01/07/2025 4:03 PM EDT 01/07/2025 4:03 PM EDT May Matthew TENTER FRAME OPERATOR LAB BLOOD ORDERABLES Final Result Performing Organization Address [facility] Co de Phone Number [facility] [address] [place] [address] * (ABNORMAL) C-Reactive Protein, Plasma (01/07/2025 4:03 PM EDT) CRP, Plasma 11.5(H) <=8.0 mg/L 01/07/2025 7:54 PM EDT [facility] Blood Venous blood specimen / Unknown Venipuncture / Unknown 01/07/2025 4:03 PM EDT 01/07/2025 4:03 PM EDT Narrative [facility] - 01/07/2025 7:54 PM EDT This CRP test is appropriate for assessment of infection, systemic inflammation and/or tissue injury. To assess cardiovascular disease risk order high sensitivity CRP (CRPH). May Matthew TENTER FRAME OPERATOR LAB BLOOD ORDERABLES Final Result Performing Organization Address [facility]/ZIP Co de Phone Number [facility] [address] [place] [address] * Hepatic Function Panel (01/07/2025 4:03 PM EDT) Direct Bilirubin, Plasma <0.2 <=0.3 mg/dL 01/07/2025 7:54 PM EDT [facility] Alkaline Phosphatase, Plasma 90 46 - 142 U/L 01/07/2025 7:54 PM EDT [facility] Total Bilirubin, Plasma 0.2 0.2 - 1.1 mg/dL 01/07/2025 7:54 PM EDT [facility] Albumin, Plasma 3.8 3.5 - 5.2 g/dL 01/07/2025 7:54 PM EDT [facility] Total Protein 6.4 6.3 - 7.9 g/dL 01/07/2025 7:54 PM EDT [facility] ALT, Plasma 26 10 - 35 U/L 01/07/2025 7:54 PM EDT [facility] AST, Plasma 30 10 - 35 U/L 01/07/2025 7:54 PM EDT [facility] Blood Venous blood specimen / Unknown Venipuncture / Unknown 01/07/2025 4:03 PM EDT 01/07/2025 4:03 PM EDT May Matthew TENTER FRAME OPERATOR LAB BLOOD ORDERABLES Final Result Performing Organization Address [facility] Co de Phone Number [facility] [address] [place] [address] * Creatinine, Plasma (01/07/2025 4:03 PM EDT) [facility] Creatinine, Plasma 0.68 0.60 - 1.10 mg/dL 01/07/2025 7:54 PM EDT [facility] eGFRcr 99.2 mL/min/1.7 3m*2 01/07/2025 7:54 PM EDT [facility] Comment:Reported eGFRcr in m L/min/1.73m2 is based the CKD-EPI 2020 equation that does not use a race coefficient. Blood Venous blood specimen / Unknown Venipuncture / Unknown 01/07/2025 4:03 PM EDT 01/07/2025 4:03 PM EDT May Matthew TENTER FRAME OPERATOR LAB BLOOD ORDERABLES Final Result Performing Organization Address [facility]/ZIP Co de Phone Number [facility] [address] [place] [address] * (ABNORMAL) CBC and Differential (01/07/2025 4:03 PM EDT) WBC Count 9.02 3.70 - 10.30 10*3/uL LAB HEMATOLOGY METHOD 01/07/2025 7:08 PM EDT [facility] RBC Count 4.66 3.90 - 5.20 10*6/uL LAB HEMATOLOGY METHOD 01/07/2025 7:08 PM EDT [facility] HGB 14.5 11.2 - 15.7 g/dL LAB HEMATOLOGY METHOD 01/07/2025 7:08 PM EDT [facility] HCT 43.6 34.0 - 45.0 % LAB HEMATOLOGY METHOD 01/07/2025 7:08 PM EDT [facility] Platelet Count 269 155 - 369 10*3/uL LAB HEMATOLOGY METHOD 01/07/2025 7:08 PM EDT [facility] MCV 94 79 - 98 fL LAB HEMATOLOGY METHOD 01/07/2025 7:08 PM EDT [facility] MCH 31.1 26.0 - 32.0 pg LAB HEMATOLOGY METHOD 01/07/2025 7:08 PM EDT [facility] MCHC 33.3 30.7 - 35.5 g/dL LAB HEMATOLOGY METHOD 01/07/2025 7:08 PM EDT [facility] RDW 13.7 11.5 - 14.5 % LAB HEMATOLOGY METHOD 01/07/2025 7:08 PM EDT [facility] MPV 11.7 8.8 - 12.5 fL LAB HEMATOLOGY METHOD 01/07/2025 7:08 PM EDT [facility] nRBC 0.0 <=0.0 per 100 WBCs LAB HEMATOLOGY METHOD 01/07/2025 7:08 PM EDT [facility] Differential Type Automated LAB HEMATOLOGY METHOD 01/07/2025 7:08 PM EDT [facility] Neutrophils % 68 % LAB HEMATOLOGY METHOD 01/07/2025 7:08 PM EDT [facility] Lymphocytes % 21 % LAB HEMATOLOGY METHOD 01/07/2025 7:08 PM EDT [facility] Monocytes % 8 % LAB HEMATOLOGY METHOD 01/07/2025 7:08 PM EDT [facility] Eosinophils % 2 % LAB HEMATOLOGY METHOD 01/07/2025 7:08 PM EDT [facility] Basophils % 1 % LAB HEMATOLOGY METHOD 01/07/2025 7:08 PM EDT [facility] Immature Granulocytes % 0 % LAB HEMATOLOGY METHOD 01/07/2025 7:08 PM EDT [facility] Neutrophils Absolute 6.21(H) 1.60 - 6.10 10*3/uL LAB HEMATOLOGY METHOD 01/07/2025 7:08 PM EDT [facility] Lymphocytes Absolute 1.90 1.20 - 3.90 10*3/uL LAB HEMATOLOGY METHOD 01/07/2025 7:08 PM EDT [facility] Monocytes Absolute 0.70 0.30 - 0.90 10*3/uL LAB HEMATOLOGY METHOD 01/07/2025 7:08 PM EDT [facility] Eosinophils Absolute 0.14 0.00 - 0.50 10*3/uL LAB HEMATOLOGY METHOD 01/07/2025 7:08 PM EDT [facility] Basophils Absolute 0.05 0.00 - 0.10 10*3/uL LAB HEMATOLOGY METHOD 01/07/2025 7:08 PM EDT [facility] Immature Granulocytes Absolute 0.02 0.00 - 0.06 10*3/uL LAB HEMATOLOGY METHOD 01/07/2025 7:08 PM EDT [facility] Blood Venous blood specimen / Unknown Venipuncture / Unknown 01/07/2025 4:03 PM EDT 01/07/2025 4:03 PM EDT Narrative [facility] - 01/07/2025 7:08 PM EDT Therapeutic decision making should be based on absolute values, rather than percentages. May Matthew TENTER FRAME OPERATOR LAB BLOOD ORDERABLES Final Result [facility] [address] [place] [address] * (ABNORMAL) RNA Polymerase III Antibody, IgG (01/07/2025 4:03 PM EDT) RNA Polymerase III Antibody, IgG 103(H) 0 - 19 Units 01/10/2025 9:46 PM EDT [facility] ([facility]) Blood Venous blood specimen / Unknown Venipuncture / Unknown 01/07/2025 4:03 PM EDT 01/07/2025 4:03 PM EDT Narrative [facility] [employer] LISA) - 01/10/2025 9:46 PM EDT INTERPRETIVE INFORMATION: [...] antibodies associated with SSc, including centromere, Scl-70, U3-HEEL SEAT FILLER, PM/Scl, or Th/To. Performed By: [facility] [address] [place] [address] Laborer Drying Department: Martell Anton MD, PhD CLIA Number: [id number] may Matthew TENTER FRAME OPERATOR LAB BLOOD ORDERABLES Final Result [facility] [employer]) [address] [id number] * Centromere Antibody, IgG (01/07/2025 4:03 PM EDT) Centromere Ab, IgG 0 0 - 40 AU/mL 01/11/2025 12:[address] [facility] [employer]) Blood Venous blood specimen / Unknown Venipuncture / Unknown 01/07/2025 4:03 PM EDT 01/07/2025 4:03 PM EDT Narrative [facility] [employer] LISA) - 01/11/2025 12:33 AM EDT INTERPRETIVE [...] other antibodies associated with SSc, including Scl-70, U3-HEEL SEAT FILLER, PM/Scl, or Th/To. Performed By: [facility] [address] [place] [address] Laborer Drying Department: Martell Anton MD, PhD CLIA Number: [id number] [facility] Final Result [employer]) [address] [place], [place] [id number] * Anti-scleroderma antibody (01/07/2025 4:03 PM EDT) SCLERODERMA (SCL-70) ([facility]) ANTIBODY, IGG 0 0 - 40 AU/mL 01/11/2025 12:33 AM EDT [facility] ([employer]) Blood Venous blood specimen / Unknown Venipuncture / Unknown 01/07/2025 4:03 PM EDT 01/07/2025 4:03 PM EDT Narrative [employer]) - 01/11/2025 12:33 AM EDT INTERPRETIVE INFORMATION: [...] testing for centromere, RNA polymerase III and U3-HEEL SEAT FILLER, PM/Scl, or Th/To antibodies. Performed By: [facility] [address] [place] [address] Laborer Drying Department: Martell Anton MD, PhD CLIA Number: [id number] may [facility] LAB BLOOD ORDERABLES Final Result [facility] ([facility]) [address] [place], [place] [id number] * Quantiferon TB Gold Plus (01/07/2025 4:03 PM EDT) [facility] Quantiferon TB Gold Plus Result Negative Negative 01/08/2025 7:53 PM EDT [facility] TB Nill Value 0.0403 IU/mL 01/08/2025 7:53 PM EDT [facility] TB Antigen 1 0.0249 IU/mL 01/08/2025 7:53 PM EDT [facility] TB Antigen 2 0.0152 IU/mL 01/08/2025 7:53 PM EDT [facility] TB Mitogen 9.9597 IU/mL 01/08/2025 7:53 PM EDT [facility] Blood Venous blood specimen / Unknown Venipuncture / Unknown 01/07/2025 4:03 PM EDT 01/07/2025 4:03 PM EDT Narrative [facility] - 01/08/2025 7:53 PM EDT Responses to the Mitogen positive control and occasionally to TB antigen can be above the assay range. For calculation purposes: IFN-gamma values > 10 IU/mL are handled as 10 IU/mL. May Matthew TENTER FRAME OPERATOR LAB BLOOD ORDERABLES Final Result Performing Organization Address City/[facility] Co de Phone Number [facility] [address] [place] [address] * Hepatitis C Antibody (01/07/2025 4:03 PM EDT) Hepatitis C Antibody Negative Negative 01/07/2025 7:32 PM EDT [facility] Blood Venous blood specimen / Unknown Venipuncture / Unknown 01/07/2025 4:03 PM EDT 01/07/2025 4:03 PM EDT May Matthew COURTNEY LAB BLOOD ORDERABLES Final Result Performing Organization Address City/[facility]/ZIP Co de Phone Number [facility] [address] [place] [address] * Hepatitis B Core Total Antibody IgG,IgM (01/07/2025 4:03 PM EDT) Hepatitis B Core Total Antibody IgG,IgM Negative Negative 01/07/2025 8:30 PM EDT [facility] Blood Venous blood specimen / Unknown Venipuncture / Unknown 01/07/2025 4:03 PM EDT 01/07/2025 4:03 PM EDT May Matthew TENTER FRAME OPERATOR LAB BLOOD ORDERABLES Final Result Performing Organization Address City/[facility]/ZIP Co de Phone Number [facility] [address] [place] [address] documented in this encounter Visit Diagnoses Diagnosis Psoriatic arthritis (CMS/HCC)- Primary Psoriatic arthropathy High risk medication use Raynaud's phenomenon without gangrene Chronic obstructive pulmonary disease, unspecified COPD type (CMS/HCC) SILVIA positive Gastroesophageal reflux disease, unspecified whether esophagitis present Shortness of breath Shortness of breath documented in this encounter Additional Health Concerns Assessment Noted Time PHQ-9 Depression Total Score: 0 01/08/20 25 2:27 PM EDT A fall risk assessment has been complete d for the patient 01/07/2025 2:27 PM EDT A Body Mass Index follow-up plan has been documented for the patient 01/07/2025 3:27 PM EDT documented as of this encounter Care Teams High [employer] Business Teacher Relationship Specialty Start Date End Date Alma Gross APRN [address] [place] [address] PCP - General 05/08/23 documented as of this encounter
--- OUTSIDE RECORDS SUMMARY | 2025-02-06 13:25 | XMS_ITS | Encounter Summary ---
Author Organization [facility] Address [address] [place] [address] Care Team Providers Care Quality Assurance Group Leader Name Role Phone Alma Gross SHERWIN Primary Care Provider +1- [phone] Reason for Referral * Imaging (Routine) - Closed Specialty Diagnoses / Procedures Referred By Joyce jones Referred To Contact Radiology Diagnoses Shortness of breath Procedures CT Chest wo IV Contrast May, [address] [address] Phone: tel: fax: Referral ID Status Reason Start Date Expiration Date Visits Re quested Visits Authorized [id number] Closed 01/07/2025 07/09/2026 1 1 Reason for Visit * Imaging (Routine) - Closed Specialty Diagnoses / Procedures Referred By Joyce jones Referred To Contact Radiology Diagnoses Shortness of breath Procedures CT Chest wo IV Contrast May, [address] [facility] [address] [place] [address] Phone: tel: fax: Referral ID Status Reason Start Date Expiration Date Visits Re quested Visits Authorized [id number] Closed 01/07/2025 07/09/2026 1 1 Encounter Details Date Type Department Care Team (Latest Contact Info) Description 02/06/2025 1:25 PM EDT - 02/06/2025 11:59 PM EDT Hospital Encounter [facility] [address] [place] [address] Shortness of breath Discharge Disposition: [...] Description 03/24/2025 9:30 AM EST Office Visit [facility] Medicine Specialties [address], [address] [place] [address] Cristel Castro APRN [address] [place] [address] 03/27/2025 8:00 AM EST Office Visit [facility] Medicine Specialties [address], [address] [place] [address] Kirby Arthur MD [address] [place] [address] documented as of this encounter Procedures Procedure [...] documented as of this encounter Care Teams Quality Assurance Group Leader Relationship Specialty Start Date End Date Alma Gross APRN [address] [place] [address] PCP - General 05/08/23 documented as of this encounter
[2025-03-05 12:11] VITALS: BP 138/78; PULSE 120; RESP 18; TEMP 36.9; O2SAT 88; BMI 34.0
[2025-03-05 12:17] VITALS: O2SAT 95
--- NOTE | 2025-03-05 12:20 | PC.NURSE ---
1215- patient taken back to treatment room 11 once triage process complete. patient placed on autobody technician and on 2LNC for an oxygen saturation on 90 on room air initially. handoff given to Vanesa ZAPATA at this time.
--- OUTSIDE RECORDS SUMMARY | 2025-03-05 12:20 | XMS_ITS | Encounter Summary ---
Author Organization [facility] Address [address] [place] [address] Care Team Providers Care Hydration Plant Operator Name Role Phone Alma Gross GLUER MACHINE SETUP OPERATOR Primary Care Provider [phone]- [phone] Reason for Referral * Imaging (Routine) - Pending Review Specialty Diagnoses / Procedures Referred By Joyce jones Referred To Contact Radiology Diagnoses Hypodense mass of liver Procedures US Abdomen Focused Region Liver May, [address] [place] [address] Phone: tel: fax: Referral ID Status Reason Start Date Expiration Date V isits Requested Visits Authorized [id number] Pending Review 02/06/2025 08/08/2026 1 1 Encounter Details Date Type Department Care Team (Late st Contact Info) Description 02/06/2025 Orders Only [facility] [address] [place] [address] May, [address] [place] [address] Hypodense mass of liver (Primary [...] Notes * Progress Notes - Matthew May, GLUER MACHINE SETUP OPERATOR - 02/06/2025 3:07 PM EDT Liver ultrasound ordered for hypodense lesion noted on chest CT. Message sent to patient. documented in this encounter Plan of Treatment Upcoming Encounters Date Type Department Care Team (Late st Contact Info) Description 03/24/2025 9:30 AM EST Office Visit [facility] [address] [place] [address] Matthew May, [address] [place] [address] 03/27/2025 8:00 AM EST Office Visit [facility] Medicine Specialties [address], [address] [place] [address] Kirby Arthur MD [address] [place] [address] Scheduled Orders Name Type Priority Associated Diagnoses [...] documented as of this encounter Care Teams Hydration Plant Operator Relationship Specialty Start Date End Date Alma Gross APRN [address] [place] [address] PCP - General 05/08/23 documented as of this encounter
--- OUTSIDE RECORDS SUMMARY | 2025-03-05 12:20 | XMS_ITS | Encounter Summary ---
Author Organization Healthcare Address [address] [place] [address] Care Team Providers Care Psychiatric Social Worker Name Role Phone Alma Gross SHERWIN Primary Care Provider [phone]- [phone] Encounter Details Date Type Department Care Team (Latest Contact Info) Description 03/03/2025 Travel Social History Tobacco Use Types Packs/Day [...] Description 03/24/2025 9:30 AM EST Office Visit [facility] [address] [place] [address] Matthew, May R, MANAGER WOMEN [address] [place] [address] 03/27/2025 8:00 AM EST Office Visit [facility] [address] [place] [address] Kirby Arthur MD [address] [place] [address] documented as of this encounter [...] documented as of this encounter Care Teams Psychiatric Social Worker Relationship Specialty Start Date End Date Alma Gross APRN [address] [place] [address] PCP - General 05/08/23 documented as of this encounter
--- OUTSIDE RECORDS SUMMARY | 2025-03-05 12:20 | XMS_ITS | Encounter Summary ---
Author Organization Healthcare Address [address] [place] [address] Care Team Providers Care Log Pond Worker Name Role Phone Alma Gross JAVA ANALYST Primary Care Provider +1- [phone] Encounter Details Date Type Department Care Team (Late st Contact Info) Description 01/26/2025 Telephone [facility] [address] [place] [address] Matthew, May R, JAVA ANALYST [address] [place] [address] Social History Tobacco Use Types [...] for her to see one of our director of exhibit development's on the ILD team The referral that's in is still good until 2025, but it got cancelled, so she's wondering about getting that reinstated and getting that scheduled CB: [phone] * Telephone Encounter - Tracey Eisenberg - 01/26/2025 11:20 AM EDT Clinical Concern/Question Reason for Call: Pt is calling to follow up on referral for pulmonology. Please call. Best contact number: [phone] (mobile) Optimal time of day to reach [...] will receive notification of the communication/outcome via Podio. documented in this encounter Plan of Treatment Upcoming Encounters Date Type Department Care Team (Late st Contact Info) Description 03/24/2025 9:30 AM EST Office Visit [facility] Medicine Specialties [address] [place] [address] Matthew, May R, JAVA ANALYST [address] [place] [address] 03/27/2025 8:00 AM EST Office Visit [facility] Medicine Specialties [address] [place] [address] Kirby Arthur MD [address] [place] [address] documented as of this encounter Visit Diagnoses [...] documented as of this encounter Care Teams Log Pond Worker Relationship Specialty Start Date End Date Alma Gross APRN [address] [place] [address] PCP - General 05/08/23 documented as of this encounter
--- OUTSIDE RECORDS SUMMARY | 2025-03-05 12:20 | XMS_ITS | Encounter Summary ---
Author Organization [facility] Address [address] [place] [address] Care Team Providers Care Priming Powder Premix Blender Name Role Phone Alma Gross SHERWIN Primary Care Provider +1- [phone] Reason for Referral * Imaging (Routine) - Authorized Specialty Diagnoses / Procedures Referred By Joyce jones Referred To Contact Cardiology Diagnoses Shortness of breath Procedures Echo, Adult Transthoracic Complete May, [address] [place] [address] Phone: tel: fax: Referral ID Status Reason Start Date Expiration Date Visits Requested Visits Authorized [id number] Authorized Perform Procedure 01/27/2025 07/29/2026 1 1 Encounter Details Date Type Department Care Team (Late st Contact Info) Description 01/27/2025 Telephone [facility] [address] [place] [address] Matthewmay, [address] [place] [address] Social History Tobacco Use Types [...] encounter Miscellaneous Notes * Telephone Encounter - Matthew, May, OUTER DIAMETER GRINDER - 01/27/2025 12:43 PM EDT Called patient with results. RNA polymerase III ab increased from 58 to 103. She has HRCT scheduledin a week here at . I will get records from [facility] PFT, new referral placed to pulmonology for second opinion possible ILD. ECHO ordered. Pt denied skin thickening, she does have GERDwith Dysphagia, Raynaud's but neg SILVIA. Concern for possible Scleroderma. documented in this encounter Plan of Treatment Upcoming Encounters Date Type Department Care Team (Late st Contact Info) Description 03/24/2025 9:30 AM EST Office Visit [facility] [address] [place] [address] Matthewmay [address] [place] [address] 03/27/2025 8:00 AM EST Office Visit [facility] Medicine Specialties [address] [place] [address] Kirby Arthur MD [address] [place] [address] Scheduled Orders Name Type Priority Associated Diagnoses [...] documented as of this encounter Care Teams Priming Powder Premix Blender Relationship Specialty Start Date End Date Alma Gross APRN [address] [id number] PCP - General 05/08/23 documented as of this encounter
--- OUTSIDE RECORDS SUMMARY | 2025-03-05 12:20 | XMS_ITS | Encounter Summary ---
Author Organization [facility] Address [address] [place] [address] Care Team Providers Care Repair Tech Name Role Phone Alma Gross Cathy COURTNEY Primary Care Provider +1- [phone] Reason for Referral * Consultation (Routine) - Authorized Specialty Diagnoses / Procedures Referred By Joyce jones Referred To Contact Pulmonology Diagnoses Chronic obstructive pulmonary disease, unspecified COPD type (CMS/HCC) Shortness of breath Matthew May, FARM MACHINERY ASSEMBLER [address] [place] [address] Phone: tel: fax: [facility] [address] [place] [address] Phone: tel: fax: Referral ID Status Reason Start Date Expiration Date Visits Requested Visits Authorized [id number] Authorized Specialty Services Required 01/27/2025 07/29/2026 1 1 Encounter Details Date Type Department Care Team (Late st Contact Info) Description 01/27/2025 Orders Only [facility] Medicine Specialties [address] [place] [address] Matthew May, FARM MACHINERY ASSEMBLER [address] [place] [address] Shortness of breath (Primary Dx); Chronic obstructive [...] Description 03/24/2025 9:30 AM EST [facility] [address] [place] [address] Cristel Castro APRN [address] [place] [address] 03/27/2025 8:00 AM EST Office Visit [facility] Medicine Specialties [address] [place] [address] Kirby Arthur MD [address] [place] [address] Scheduled Referrals Name Type Priority Associated Diagnoses [...] documented as of this encounter Care Teams Repair Tech Relationship Specialty Start Date End Date Alma Gross APRN [address] [place] [address] PCP - General 05/08/23 documented as of this encounter
--- NOTE | 2025-03-05 12:21 | ECG_ITS ---
APPROVED REPORT Exam: Resting ECG HR:106 bpm ECG Measurements Heart Rate 106 AXES NJ 132 P 71 QRSd 77 QRS 45 QT 327 T 78 QTc 389 Conclusion SINUS TACHYCARDIA ABNORMAL RHYTHM ECG UNCONFIRMED REPORT Electronically signed by : Domingo Clark, 03/07/2025 15:07:38
--- OUTSIDE RECORDS SUMMARY | 2025-03-05 12:21 | XMS_ITS | Clinical Summary ---
[facility] Address [address] [place] [address] Care Team Providers Care Apparel Rental Clerk Name Role Phone Alma Gross APRN Primary Care Provider [phone] Allergies No known active allergies Medications albuterol [...] Description 12/09/2024 1:30 PM EDT Office Visit [facility] [address] [place] [address] Jose Salmon MD Chronic bilateral low back pain without sciatica (Primary Dx); Spondylolisthesis of lumbar region; Chronic neck pain; History of fusion of cervical spine 12/09/2024 Travel 12/09/[address] [facility] [address] [place] [address] Jose Salmon MD 12/08/2024 Results Follow-Up [facility] [address] [address] Jose Salmon MD from Last 3 Months [...] procedure was auto-finalized with no dictation required. us Jose Salmon MD IMG MRI ORDERABLES Fin al Result * MRI Lumbar Spine Without Contrast (12/04/2024) Anatomical Region Laterality Modality Spine, L-spine N/A Magnetic Resonan ce Jose Salmon MD IM MRI ORDERABLES Fin al Result from Last [address] [place] [address] Care Teams Apparel Rental Clerk Relationship Specialty Start Date End Date Alma Gross APRN [address] [facility] [address] [address] [place] [address] PCP - General Internal Medicine 07/01/24
--- OUTSIDE RECORDS SUMMARY | 2025-03-05 12:21 | XMS_ITS | Encounter Summary ---
Author Organization Healthcare Address [address] [place] [address] Care Team Providers Care Assistant Speech Language Pathologist Name Role Phone Alma Gross SHERWIN Primary Care Provider +1- [phone] Encounter Details Date Type Department Care Team [...] Description 03/24/2025 9:30 AM EST Office Visit [facility] [address] [place] [address] Matthew, May R, DIRECTOR SEARCH [address] [place] [address] 03/27/2025 8:00 AM EST Office Visit [facility] [address] [place] [address] Kirby Arthur MD [address] [place] [address] documented as of this encounter [...] documented as of this encounter Care Teams Assistant Speech Language Pathologist Relationship Specialty Start Date End Date Alma Gross APRN [address] [place] [address] PCP - General 05/08/23 documented as of this encounter
--- OUTSIDE RECORDS SUMMARY | 2025-03-05 12:21 | XMS_ITS | Encounter Summary ---
Author Organization [facility] Address [address] [place] [address] Care Team Providers Care Materials Scheduler Name Role Phone Alma Gross SHERWIN Primary Care Provider +1- [phone] Encounter Details Date Type Department Care Team [...] Questionnaire -2 Score 0 01/07/2025 2:27 PM EDAyush Eddy * Question Answer Date of Assessment Author Trouble falling or staying asleep, or sleeping too much Not at all 01/07/2025 2:27 PM EDT Ayush Siddiqi Feeling tired or having cindy le energy Not at all 01/07/2025 2:27 PM EDT Ayush Cooper Poor appetite or overeating Not at all 01/07/2025 2: 27 PM CINDYT Ayush Cooper Feeling bad about yourself - or that you are a failure or have let yourself or your family down Not at all 01/07/2025 2:27 PM EDT Ayush Weiss Trouble concentrating on thi ngs, such as reading the newspaper or watching television Not at all 01/07/2025 2:27 PM CINDYT Ayush Cooper Moving or speaking so slowly that other people could have noticed? Or the opposite - being so fidgety or restless that you have been moving around a lot more than usual. Not at all 01/07/2025 2:27 PM CINDYT Ayush Cooper Thoughts that you would be better off or hurting yourself in some way Not at all 01/07/2025 2:27 PM Ayush Myles Patient Health Questionnaire -9 Score 0 01/07/2025 2:27 PM Ayush Myles * How difficult have these problems made [...] Description 03/24/2025 9:30 AM EST Office Visit [facility] Medicine Specialties [address] [place] [address] Matthew, May R, CULINARY DIRECTOR [address] [place] [address] 03/27/2025 8:00 AM EST Office Visit [place] [facility] [address] [place] [address] Kirby Arthur MD [address] [place] [address] documented as of this encounter [...] documented as of this encounter Care Teams Materials Scheduler Relationship Specialty Start Date End Date Alma Gross APRN [address] [place] [address] PCP - General 05/08/23 documented as of this encounter
--- OUTSIDE RECORDS SUMMARY | 2025-03-05 12:21 | XMS_ITS | Clinical Summary ---
Author Organization [facility] Address [address] [place] [address] Care Team Providers Care Rail Track Layer Name Role Phone Alma Gross Cathy COURTNEY Primary Care Provider +1- [phone] Allergies No known active allergies Medications albuterol [...] Encounters Date Type Department Care Team Description 03/03/2025 Travel 02/06/2025 1:25 PM EDT - 02/06/2025 11:59 PM EDT Hospital Encounter [facility] [address], [address]nd [place] [address] Shortness of breath Discharge Disposition: Home or Self Care 02/06/2025 Orders Only [facility] [address], [address]nd [place] [phone] May R, WAD LUBRICATOR Hypodense mass of liver (Primary Dx) 02/06/2025 Travel 01/27/2025 Telephone [facility] [address], [address] [place] [phone] Matthewmay R, WAD LUBRICATOR 01/27/2025 Orders Only [facility] [address], [address] [place] [phone] May R, WAD LUBRICATOR Shortness of breath (Primary Dx); Chronic obstructive pulmonary disease, unspecified COPD type (CMS/HCC) 01/26/2025 Telephone [facility] [address], [address]nd [place] [address] May, WAD LUBRICATOR 01/12/2025 Telephone [facility] Medicine Specialties [address] [facility], 2nd [place] [address] May, WAD LUBRICATOR 01/07/2025 2:30 PM EDT Office Visit [facility] Medicine Specialties [address], [address] [place] [address] May Psoriatic arthritis (CMS/HCC) (Primary Dx); High risk medication use; Raynaud's phenomenon without gangrene; Chronic obstructive pulmonary disease, unspecified COPD type (CMS/HCC); SILVIA positive; Gastroesophageal reflux disease, unspecified whether esophagitis present; Shortness of breath 01/07/2025 Telephone [facility] Medicine Specialties [address] [place] [address], [address] [place] [address] Nayeli Izaguirre, PharmD [facility] New Start [...] Description 03/24/2025 9:30 AM EST Office Visit [facility] Medicine Specialties [address], [address] [place] [address] Cristel Castro APRN [address] [place] [address] 03/27/2025 8:00 AM EST Office Visit [facility] Medicine Specialties [address], [address] [place] [address] Kirby Arthur MD [address] [place] [address] Health Maintenance Due Date Last Done Comments [...] - Risk 60-74 years 1-dose series) 2023 [id number] Vaccine (5 - Moderna risk season) 2025 [...] on 02/06/2025 2:52 PM May R Matthew COURTNEY IMG CT PROCEDURES Final Res ult * Cryoglobulin, Serum (SO) (01/07/2025 4:03 PM EDT) Pathologist [facility] Cryoglobulin, S Negative Negative %ppt 01/12/2025 10:33 PM EDT [facility] ([place]) Comment: This test is negative at 24 hours. All samples are held and reviewed again at 7 days. If delayed precipitation occurs after 7 days, Immunofixation will be performed and an additional report will follow. Test Performed by: [address] [place] [address] Firearms Model Maker: Barbara Easley Ph.D.; CLIA# [id number] Blood Venous blood specimen / Unknown Venipuncture / Unknown 01/07/2025 4:03 PM EDT 01/07/2025 4:03 PM EDT may R Matthew COURTNEY LAB REF LAB BLOOD AND FLUID ORD Final Result [facility] ([place]) * (ABNORMAL) RNA Polymerase III Antibody, IgG (01/07/2025 4:03 PM EDT) Pathologist [facility] RNA Polymerase III Antibody, IgG 103(H) 0 - 19 Units 01/10/2025 9:46 PM EDT [facility] ([place]) Blood Venous blood specimen / Unknown Venipuncture / Unknown 01/07/2025 4:03 PM EDT 01/07/2025 4:03 PM EDT Narrative [facility] DERRICK GONZALEZ) - 01/10/2025 9:46 PM EDT [...] antibodies associated with SSc, including centromere, Scl-70, U3-GAS TRUCK DRIVER, PM/Scl, or Th/To. Performed By: [facility] [address] [place] [address] Reconciliation Manager: Martell Anton MD, PhD CLIA Number: [id number] may Matthew WAD LUBRICATOR LAB BLOOD ORDERABLES Final Result [facility]) [address] [place] [address] * Centromere Antibody, IgG (01/07/2025 4:03 PM EDT) Pathologist [facility] Centromere Ab, IgG 0 0 - 40 AU/mL 01/11/2025 12:33 AM EDT [facility] ([place]) Blood Venous blood specimen / Unknown Venipuncture / Unknown 01/07/2025 4:03 PM EDT 01/07/2025 4:03 PM EDT Narrative [facility] ([place]) - 01/11/2025 12:33 AM EDT INTERPRETIVE [...] other antibodies associated with SSc, including Scl-70, U3-GAS TRUCK DRIVER, PM/Scl, or Th/To. Performed By: [facility] [address] [place] [address] Reconciliation Manager: Martell Anton MD, PhD CLIA Number: [id number] May R Matthew COURTNEY LAB BLOOD ORDERABLES Final Result [facility] ([place]) [address] [id number] * Hepatitis C Antibody (01/07/2025 4:03 PM EDT) Hepatitis C Antibody Negative Negative 01/07/2025 7:32 PM EDT [facility] Blood Venous blood specimen / Unknown Venipuncture / Unknown 01/07/2025 4:03 PM EDT 01/07/2025 4:03 PM EDT May R Matthew ROBERTSONN LAB BLOOD ORDERABLES Final Result [facility] [address] [place] [address] * Anti-scleroderma antibody (01/07/2025 4:03 PM EDT) SCLERODERMA (SCL-70) (DAVID) ANTIBODY, IGG 0 0 - 40 AU/mL 01/11/2025 12:33 AM EDT [facility] ([place]) Blood Venous blood specimen / Unknown Venipuncture / Unknown 01/07/2025 4:03 PM EDT 01/07/2025 4:03 PM EDT Narrative [facility] ([place]) - 01/11/2025 12:33 AM EDT [...] testing for centromere, RNA polymerase III and U3-GAS TRUCK DRIVER, PM/Scl, or Th/To antibodies. Performed By: [facility] [address] [place] [id number] Reconciliation Manager: Martell Anton MD, PhD CLIA Number: [id number] May R Matthew WAD LUBRICATOR LAB BLOOD ORDERABLES Final Result [facility] ([place]) [address] [place] [address] * Hepatitis B Core Total Antibody IgG,IgM (01/07/2025 4:03 PM EDT) Hepatitis B Core Total Antibody IgG,IgM Negative Negative 01/07/2025 8:30 PM EDT [facility] Blood Venous blood specimen / Unknown Venipuncture / Unknown 01/07/2025 4:03 PM EDT 01/07/2025 4:03 PM EDT May R Matthew WAD LUBRICATOR LAB BLOOD ORDERABLES Final Result [facility] [address] [place] [address] * Quantiferon TB Gold Plus (01/07/2025 4:03 PM EDT) Quantiferon TB Gold Plus Result Negative Negative 01/08/2025 7:53 PM EDT [facility] TB Nill Value 0.0403 IU/mL 01/08/2025 7:53 PM EDT [facility] TB Antigen 1 0.0249 IU/mL 01/08/2025 7:53 PM EDT [facility] TB Antigen 2 0.0152 IU/mL 01/08/2025 7:53 PM EDT [facility] TB Mitogen 9.9597 IU/mL 01/08/2025 7:53 PM EDT [facility] Blood Venous blood specimen / Unknown Venipuncture / Unknown 01/07/2025 4:03 PM EDT 01/07/2025 4:03 PM EDT Narrative [facility] - 01/08/2025 7:53 PM EDT Responses to the Mitogen positive control and occasionally to TB antigen can be above the assay range. For calculation purposes: IFN-gamma values > 10 IU/mL are handled as 10 IU/mL. May R Matthew WAD LUBRICATOR LAB BLOOD ORDERABLES Final Result Performing Organization Address City/[facility]/ZIP Co de Phone Number [facility] [address] [place] [address] * Creatinine, Plasma (01/07/2025 4:03 PM EDT) Creatinine, Plasma 0.68 0.60 - 1.10 mg/dL 01/07/2025 7:54 PM EDT [facility] eGFRcr 99.2 mL/min/1.7 3m*2 01/07/2025 7:54 PM EDT [facility] Comment:Reported eGFRcr in m L/min/1.73m2 is based the CKD-EPI 2020 equation that does not use a race coefficient. Blood Venous blood specimen / Unknown Venipuncture / Unknown 01/07/2025 4:03 PM EDT 01/07/2025 4:03 PM EDT May R Matthew WAD LUBRICATOR LAB BLOOD ORDERABLES Final Result Performing Organization Address [facility] Co de Phone Number [facility] [address] [place] [address] * (ABNORMAL) CBC and Differential (01/07/2025 4:03 PM EDT) WBC Count 9.02 3.70 - 10.30 10*3/uL LAB HEMATOLOGY METHOD 01/07/2025 7:08 PM EDT [facility] RBC Count 4.66 3.90 - 5.20 10*6/uL LAB HEMATOLOGY METHOD 01/07/2025 7:08 PM EDT [facility] HGB 14.5 11.2 - 15.7 g/dL LAB HEMATOLOGY METHOD 01/07/2025 7:08 PM EDT [facility] HCT 43.6 34.0 - 45.0 % LAB HEMATOLOGY METHOD 01/07/2025 7:08 PM EDT [facility] Platelet Count 269 155 - 369 10*3/uL LAB HEMATOLOGY METHOD 01/07/2025 7:08 PM EDT [facility] MCV 94 79 - 98 fL LAB HEMATOLOGY METHOD 01/07/2025 7:08 PM EDT [facility] MCH 31.1 26.0 - 32.0 pg LAB HEMATOLOGY METHOD 01/07/2025 7:08 PM EDT [facility] MCHC 33.3 30.7 - 35.5 g/dL LAB HEMATOLOGY METHOD 01/07/2025 7:08 PM EDT [facility] RDW 13.7 11.5 - 14.5 % LAB HEMATOLOGY METHOD 01/07/2025 7:08 PM EDT [facility] MPV 11.7 8.8 - 12.5 fL LAB HEMATOLOGY METHOD 01/07/2025 7:08 PM EDT [facility] nRBC 0.0 <=0.0 per 100 WBCs LAB HEMATOLOGY METHOD 01/07/2025 7:08 PM EDT [facility] Differential Type Automated LAB HEMATOLOGY METHOD 01/07/2025 7:08 PM EDT [facility] Neutrophils % 68 % LAB HEMATOLOGY METHOD 01/07/2025 7:08 PM EDT [facility] Lymphocytes % 21 % LAB HEMATOLOGY METHOD 01/07/2025 7:08 PM EDT [facility] Monocytes % 8 % LAB HEMATOLOGY METHOD 01/07/2025 7:08 PM EDT [facility] Eosinophils % 2 % LAB HEMATOLOGY METHOD 01/07/2025 7:08 PM EDT [facility] Basophils % 1 % LAB HEMATOLOGY METHOD 01/07/2025 7:08 PM EDT [facility] Immature Granulocytes % 0 % LAB HEMATOLOGY METHOD 01/07/2025 7:08 PM EDT [facility] Neutrophils Absolute 6.21(H) 1.60 - 6.10 10*3/uL LAB HEMATOLOGY METHOD 01/07/2025 7:08 PM EDT [facility] Lymphocytes Absolute 1.90 1.20 - 3.90 10*3/uL LAB HEMATOLOGY METHOD 01/07/2025 7:08 PM EDT [facility] Monocytes Absolute 0.70 0.30 - 0.90 10*3/uL LAB HEMATOLOGY METHOD 01/07/2025 7:08 PM EDT [facility] Eosinophils Absolute 0.14 0.00 - 0.50 10*3/uL LAB HEMATOLOGY METHOD 01/07/2025 7:08 PM EDT [facility] Basophils Absolute 0.05 0.00 - 0.10 10*3/uL LAB HEMATOLOGY METHOD 01/07/2025 7:08 PM EDT [facility] Immature Granulocytes Absolute 0.02 0.00 - 0.06 10*3/uL LAB HEMATOLOGY METHOD 01/07/2025 7:08 PM EDT [facility] Blood Venous blood specimen / Unknown Venipuncture / Unknown 01/07/2025 4:03 PM EDT 01/07/2025 4:03 PM EDT Narrative [facility] - 01/07/2025 7:08 PM EDT Therapeutic decision making should be based on absolute values, rather than percentages. may R Matthew ROBERTSONN LAB BLOOD ORDERABLES Final Result Performing Organization Address [facility]/ZIP Co de Phone Number [facility] [address] [place] [address] * Rheumatoid Factor, Plasma (01/07/2025 4:03 PM EDT) Rheumatoid Factor, Plasma <10 <14 IU/mL 01/07/2025 10:33 PM EDT [facility] Blood Venous blood specimen / Unknown Venipuncture / Unknown 01/07/2025 4:03 PM EDT 01/07/2025 4:03 PM EDT may Matthew COURTNEY LAB BLOOD ORDERABLES Final Result Performing Organization Address [facility]/ZIP Co de Phone Number [facility] [address] [place] [address] * (ABNORMAL) C3 Complement (01/07/2025 4:03 PM EDT) C3 Complement 174(H) 84 - 166 mg/dL 01/07/2025 10:33 PM EDT [facility] Blood Venous blood specimen / Unknown Venipuncture / Unknown 01/07/2025 4:03 PM EDT 01/07/2025 4:03 PM EDT may Matthew ROBERTSONN LAB BLOOD ORDERABLES Final Result Performing Organization Address [facility]/ZIP Co de Phone Number [facility] [address] [place] [address] * C4 Complement (01/07/2025 4:03 PM EDT) C4 Complement 29 13 - 36 mg/dL 01/07/2025 10:33 PM EDT [facility] Blood Venous blood specimen / Unknown Venipuncture / Unknown 01/07/2025 4:03 PM EDT 01/07/2025 4:03 PM EDT May Matthew ROBERTSONN LAB BLOOD ORDERABLES Final Result Performing Organization Address [facility] de Phone Number [facility] [address] [place] [address] * (ABNORMAL) C-Reactive Protein, Plasma (01/07/2025 4:03 PM EDT) [facility] CRP, Plasma 11.5(H) <=8.0 mg/L 01/07/2025 7:54 PM EDT [facility] Blood Venous blood specimen / Unknown Venipuncture / Unknown 01/07/2025 4:03 PM EDT 01/07/2025 4:03 PM EDT Narrative [facility] - 01/07/2025 7:54 PM EDT This CRP test is appropriate for assessment of infection, systemic inflammation and/or tissue injury. To assess cardiovascular disease risk order high sensitivity CRP (CRPH). may Matthew COURTNEY LAB BLOOD ORDERABLES Final Result Performing Organization Address [facility] Co de Phone Number [facility] [address] [place] [address] * ANTI NUCLEAR AB (01/07/2025 4:03 PM EDT) Pathologist [facility] SILVIA INTERPRETIVE COMMENT See Note 01/10/2025 5:13 PM EDT [facility] ([facility]) Anti Nuc Ab Screen <1:80 <1:80 01/10/2025 5:13 PM EDT [facility] ([facility]) Blood Venous blood specimen / Unknown Venipuncture / Unknown 01/07/2025 4:03 PM EDT 01/07/2025 4:03 PM EDT Narrative [facility] ([place]) - 01/10/2025 5:13 PM EDT [...] not necessarily rule out SARD. Performed By: [facility] [address] [place] [address] Reconciliation Manager: Martell Anton MD, PhD CLIA Number: [id number] may R Matthew ROBERTSONN LAB BLOOD ORDERABLES Final Result [facility] ([place]) [address] [place] [address] * Hepatic Function Panel (01/07/2025 4:03 PM EDT) Direct Bilirubin, Plasma <0.2 <=0.3 mg/dL 01/07/2025 7:54 PM EDT [facility] Alkaline Phosphatase, Plasma 90 46 - 142 U/L 01/07/2025 7:54 PM EDT [facility] Total Bilirubin, Plasma 0.2 0.2 - 1.1 mg/dL 01/07/2025 7:54 PM EDT [facility] Albumin, Plasma 3.8 3.5 - 5.2 g/dL 01/07/2025 7:54 PM EDT [facility] Total Protein 6.4 6.3 - 7.9 g/dL 01/07/2025 7:54 PM EDT [facility] ALT, Plasma 26 10 - 35 U/L 01/07/2025 7:54 PM EDT [facility] AST, Plasma 30 10 - 35 U/L 01/07/2025 7:54 PM EDT [facility] Blood Venous blood specimen / Unknown Venipuncture / Unknown 01/07/2025 4:03 PM EDT 01/07/2025 4:03 PM EDT May R Matthew WAD LUBRICATOR LAB BLOOD ORDERABLES Final Result Performing Organization Address City/[facility]/ZIP Co de Phone Number [facility] [address] [place] [address] * HIV 1 & 2 Antibody/Antigen Screen (05/30/2023 1:32 PM EST) [facility] HIV 1 & 2 Antibody/Antigen Screen Non Reactive Non Reactive 05/30/2023 3:32 PM EST [facility] Comment:Screening for HIV 1 & 2 antibodies, and P24 antigen is NONREACTIVE. No confirmatory testing is required. Blood Venous blood specimen / Unknown Venipuncture / Unknown 05/30/2023 1:32 PM EST 05/30/2023 1:34 PM EST May R Matthew WAD LUBRICATOR LAB BLOOD ORDERABLES Final Result [facility] [address] [place] [address] from Last 3 Months or Most Recently Relevant to Health Maintenance Insurance [employer] CLAIMS [facility] [address] Care Teams Rail Track Layer Relationship Specialty Start Date End Date Alma Gross APRN [address] [place] [address] PCP - General 05/08/23
--- OUTSIDE RECORDS SUMMARY | 2025-03-05 12:21 | XMS_ITS | Encounter Summary ---
Author Organization Healthcare Address [address] [place] [address] Care Team Providers Care Bar Gauger And Lubricator Tender Name Role Phone Alma Gross NATIONAL BUSINESS DIRECTOR Primary Care Provider [phone]- [phone] Encounter Details Date Type Department Care Team (Late st Contact Info) Description 01/12/2025 Telephone [facility] [address] [place] [address] Matthew, May R, NATIONAL BUSINESS DIRECTOR [address] [place] [address] Social History Tobacco Use Types [...] about a PA Best contact number: Other: [phone] Optimal time of day to reach caller: ANYTIME Additional comments/information from caller: None Note: Please do not reply to this message. Follow-up communication and further actions as a result of this message need to be communicated with the patient directly, if the patient is not active onMyChart. If the patient is active on MyChart, they will receive notification of the communication/outcome via [email or web address]. documented in this encounter Plan of Treatment Upcoming Encounters Date Type Department Care Team (Late st Contact Info) Description 03/24/2025 9:30 AM EST Office Visit [facility] Medicine Specialties [address] [place] [address] Cristel Castro APRN [address] [facility] [address] [place] [address] 03/27/2025 8:00 AM EST Office Visit [facility] Medicine Specialties [address] [place] [address] Kirby Arthur MD [address] [place] [address] documented as of this encounter Visit Diagnoses [...] documented as of this encounter Care Teams Bar Gauger And Lubricator Tender Relationship Specialty Start Date End Date Alma Gross APRN [address] [place] [address] (work) PCP - General 05/08/23 documented as of this encounter
--- OUTSIDE RECORDS SUMMARY | 2025-03-05 12:21 | XMS_ITS | Encounter Summary ---
Author Organization [facility] Address [address] [place] [address] Care Team Providers Care Stock Turner Name Role Phone Alma Gross SHERWIN Primary Care Provider +1- [phone] Reason for Visit * Reason Onset Date Comments [facility] Start 01/07/2025 Encounter Details Date Type Department Care Team (Late st Contact Info) Description 01/07/2025 Telephone [facility] [address] [place] [address] Nayeli Izaguirre, PharmD [facility] New [...] day supply with 3 refills to [facility] pharmacy. documented in this encounter Plan of Treatment Upcoming Encounters Date Type Department Care Team (Late st Contact Info) Description 03/24/2025 9:30 AM EST [facility] [address] [place] [address] Cristel Castro, BULK MAIL CLERK [address] [place] [address] 03/27/2025 8:00 AM EST Office Visit [facility] Medicine Specialties [address] [place] [address] Kirby Arthur MD [address] [facility] [address] [place] [address] documented as of this encounter Visit Diagnoses Diagnosis Psoriatic arthritis (CMS/[facility])- Primary Psoriatic arthropathy documented in this encounter Additional Health Concerns Assessment Noted Time PHQ-9 Depression Total Score: 0 01/08/20 25 2:27 PM EDT A fall risk assessment has been complete d for the patient 01/07/2025 2:27 PM EDT A Body Mass Index follow-up plan has been documented for the patient 01/07/2025 3:27 PM EDT documented as of this encounter Care Teams Stock Turner Relationship Specialty Start Date End Date Alma Gross APRN [address] [place] [address] PCP - General 05/08/23 documented as of this encounter
--- OUTSIDE RECORDS SUMMARY | 2025-03-05 12:21 | XMS_ITS | Encounter Summary ---
[facility] Address [address] [place] [address] Care Team Providers Care Acid Concentrator Name Role Phone Alma Gross APRN Primary Care Provider + [phone] Encounter Details Date Type Department Care Team (Late st Contact Info) Description 12/08/2024 Results Follow-Up [facility] [address] [facility] [address] [place] [phone] Jose Salmon MD [address] [facility] [address] [place] [address] Social History Tobacco Use Types Packs/Day Years [...] on filedocumented in this encounter Care Teams Acid Concentrator Relationship Specialty Start Date End Date Alma Gross APRN [address] [place] [address] YANETH JANE [address] PCP - General Internal Medicine 07/01/24 documented as of this encounter
--- NOTE | 2025-03-05 12:31 | CT_ITS ---
FINAL REPORT TECHNIQUE: Axial imaging of the chest is obtained after the administration of contrast. 3-D MIP reformatted images were also obtained and reviewed per PE protocol. This study was performed with techniques to keep radiation doses as low as reasonably achievable (ALARA). Individualized dose reduction techniques using automated exposure control or adjustment of mA and/or kV according to the patient's size were employed. CLINICAL HISTORY: short of breath COMPARISON: CT of the chest 05/02/2024 FINDINGS: The pulmonary arteries are well filled. There is no evidence of pulmonary embolus. There is no aortic dissection. Heart size is normal. There is no mediastinal, hilar, or axillary lymphadenopathy. Changes of emphysema are present, and there is evidence of prior granulomatous disease. There is no pleural or pericardial effusion. No new nodules or masses are identified. There is an atrophic lower pole of the left kidney, stable. No acute osseous abnormality. IMPRESSION: No evidence of pulmonary embolism or aortic dissection. Changes of emphysema and prior granulomatous disease are noted. Reviewed, Interpreted and Dictated by Katherin Lopez MD Transcribed by Gissel Devi Authenticated and [facility]
[2025-03-05 12:39] LABS: Hematocrit 41.0 % (37.0-47.0); Hemoglobin 13.7 g/dL (12.2-16.2); Immature Granulocytes % 0.3 %; Mean Corpuscular HGB Conc 33.4 g/dL (31.8-35.4); Mean Corpuscular Hemoglobin 31.1 pg (27.0-31.2); Mean Corpuscular Volume 93.0 fl (81-99); Nucleated Red Blood Cells % 0 %; Platelet Count 203 K/mm3 (142-424); Red Blood Count 4.41 M/mm3 (4.20-5.40); Red Cell Distribution Width-SD 45.7 fL; White Blood Count 9.1 K/mm3 (4.8-10.8)
[2025-03-05 12:42] LABS: Coronavirus 19, PCR Not Detected (NotDetected); Influenza A, PCR Not Detected (NotDetected); Influenza B, PCR Not Detected (NotDetected)
[2025-03-05 12:43] LABS: Albumin Level 3.8 g/dl (3.5-5.0); Chloride 101 mmol/L (98-107); Potassium 3.6 mmoL/L (3.5-5.1); Sodium 136 mmol/L (136-145)
[2025-03-05] MEDS: DEXAMETHASONE 4MG/ML 1ML VIAL 8 MG IV (12:43)
--- NOTE | 2025-03-05 12:43 | ED_ITS ---
<Statement entered by Pavan Clark MD - 03/05/25 15:34> I was consulted by the WAYNE, and we discussed the complexity of the problems being addressed. I approved the treatment and management plan for this patient's care in the emergency department, thus performing a substantive portion of the medical decision making. Pavan Clark MD, LANDON, FACEP Discharge Plan Disposition Chief Complaint: Shortness of Breath/Dyspnea Prescriptions Prescriptions: No Action metoclopramide HCl 10 mg tablet 10 mg PO .q8 PRN (Reason: GERD) diazepam 2 mg tablet 2 mg PO .daily PRN (Reason: anxiety ) Qty: 30 0RF cholecalciferol (vitamin D3) 125 mcg (5,000 unit) capsule 250 mcg PO DAILY duloxetine 20 mg capsule,delayed release(DR/EC) 20 mg PO DAILY Qty: 30 2RF trazodone 50 mg tablet 50 mg PO DIRECTED PRN (Reason: Sleep) famotidine 20 mg tablet 20 mg PO BID PRN (Reason: GERD) Patient Comments: TAKE ONE TABLET BY MOUTH TWICE DAILY baclofen 10 mg tablet 10 mg PO BID PRN (Reason: muscle spasm) 30 Days Qty: 60 1RF Cosentyx Pen 150 mg/mL pen injector 150 mg SQ QWEEK metoprolol succinate 100 mg tablet extended release 24 hr 100 mg PO DAILY Qty: 30 1RF fexofenadine 180 mg tablet 180 mg PO DAILY Qty: 30 5RF irbesartan 75 mg tablet 75 mg PO DAILY Qty: 30 0RF albuterol sulfate 1.25 mg/3 mL solution for nebulization See Rx Instructions .ROUTE .COMPLEX Qty: 90 2RF Dose Instruction: INHALE THE CONTENTS OF 1 VIAL VIA NEBULIZER EVERY 8 HOURS NEEDED Rx Instructions: INHALE THE CONTENTS OF 1 VIAL VIA NEBULIZER EVERY 8 HOURS NEEDED diclofenac sodium 50 mg tablet,delayed release (DR/EC) 50 mg PO TID Qty: 90 2RF fluticasone propionate 50 mcg/actuation spray,suspension 2 spray intranasal DAILY PRN (Reason: Breathing Problems) Qty: 16 2RF Trelegy Ellipta 200-62.5-25 mcg blister with device See Rx Instructions .ROUTE .COMPLEX Qty: 60 2RF Dose Instruction: INHALE 1 PUFF BY MOUTH EVERY DAY --RINSE MOUTH AFTER USE-- Rx Instructions: INHALE 1 PUFF BY MOUTH EVERY DAY --RINSE MOUTH AFTER USE-- hydrochlorothiazide 25 mg tablet 25 mg PO DAILY Qty: 30 2RF meclizine 25 mg tablet 25 mg PO TID PRN (Reason: dizziness) Qty: 90 0RF tramadol 50 mg tablet 50 mg PO Q6H PRN (Reason: pain) Qty: 30 0RF ipratropium-albuterol 0.5 mg-3 mg(2.5 mg base)/3 mL solution for nebulization See Rx Instructions .ROUTE .COMPLEX Qty: 180 1RF Dose Instruction: INHALE THE CONTENTS OF 1 VIAL VIA NEBULIZER FOUR TIMES DAILY NEEDED FOR SHORTNESS OF BREATH OR wheezing Rx Instructions: INHALE THE CONTENTS OF 1 VIAL VIA NEBULIZER FOUR TIMES DAILY NEEDED FOR SHORTNESS OF BREATH OR wheezing albuterol sulfate 90 mcg/actuation HFA aerosol inhaler See Rx Instructions .ROUTE .COMPLEX Qty: 8.5 1RF Dose Instruction: INHALE TWO PUFFS BY MOUTH EVERY 4 TO 6 HOURS NEEDED FOR breathing problems Rx Instructions: INHALE TWO PUFFS BY MOUTH EVERY 4 TO 6 HOURS NEEDED FOR breathing problems Referrals Follow up/Referrals: Alma Gross APRN [Primary Care Provider, Medical] - See instructions Print Language Print Language: Korean Discharge ED Provider: Pavan Clark [facility] General Chief Complaint: Shortness of Breath/Dyspnea Stated Complaint: SOA Time Seen by Provider: 03/05/25 12:25 Mode of Arrival: Ambulatory Source of Information: Patient Description of Symptoms (Recalled from ER Triage Doc. by RN): albert presents to the ED for shortnesss of air that has been intermittent for approximately 3 days. patient stated she also has has a worsening cough over the last 3 days and stated she takes an immune supressing medication for psoriatic arthritis. [facility]. History of Present Illness HPI narrative: 59-year-old female presents to the ED for complaint of shortness of breath that has been intermittent for the past 3 days. Patient has been coughing more than the past 3 days. No fevers or chills. She does take Cosentyx for psoriatic arthritis and had a shot at the end of January. She usually gets steroids from her primary for this in addition to the Cosentyx because she has COPD. Patient has O2 sat of 88 in triage. Was placed on 2 L and was 95%. Patient does have good history of asthma and COPD. Related Data Home Medications ?Medication ?Instructions ?Recorded ?Confirmed trazodone 50 mg tablet 50 mg PO DIRECTED PRN Sle ep 01/24/23 02/20/25 metoclopramide HCl 10 mg tablet 10 mg PO .q8 PRN GERD 06/20/23 02/20/25 famotidine 20 mg tablet 20 mg PO BID PRN GERD 02/20/25 cholecalciferol (vitamin D3) 125 250 mcg PO DAILY 09/1902/20/25 mcg (5,000 unit) capsule secukinumab 150 mg/mL subcutaneous 150 mg SQ QWEEK 02/20/25 pen injector (Cosentyx Pen) Previous Rx's ?Medication ?Instructions ?Recorded albuterol sulfate 1.25 mg/3 mL See Rx Instructions .Ro [place] 02/22/24 solution for nebulization .COMPLEX #90 mL diclofenac sodium 50 mg 50 mg PO TID #90 tabs tablet,delayed release fluticasone fur. 200 mcg-umeclid See Rx Instructions . Route 08/08/24 62.5 mcg-vilant 25 mcg .COMPLEX #60 blisters inhalat.powder (Trelegy Ellipta) fluticasone propionate 50 2 spray intranasal DAILY PRN 08/08/24 mcg/actuation nasal Breathing Problems #16 grams spray,suspension hydrochlorothiazide 25 mg tablet 25 mg PO DAILY #30 ta bs 08/08/24 meclizine 25 mg tablet 25 mg PO TID PRN dizziness # 90 tabs 08/08/24 tramadol 50 mg tablet 50 mg PO Q6H PRN pain #30 ta bs 08/08/24 diazepam 2 mg tablet 2 mg PO .daily PRN anxiety #30 09/23/24 tabs duloxetine 20 mg capsule,delayed 20 mg PO DAILY #30 ca ps 12/05/24 release baclofen 10 mg tablet 10 mg PO BID PRN muscle spas m 30 12/22/24 days #60 tabs metoprolol succinate 100 mg 100 mg PO DAILY #30 tabs 0 02/06/25 tablet,extended release 24 hr fexofenadine 180 mg tablet 180 mg PO DAILY #30 tabs irbesartan 75 mg tablet 75 mg PO DAILY #30 tabs 08/12 albuterol sulfate 90 mcg/actuation See Rx Instructions .Route 02/23/25 aerosol inhaler .COMPLEX #8.5 grams ipratropium 0.5 mg-albuterol 3 mg See Rx Instructions .Route 02/23/25 (2.5 mg base)/3 mL nebulization .COMPLEX #180 mL soln Allergies Allergy/AdvReac Type Severity Reaction Status Date / Time No Known Allergies Allergy Verified 02/20/25 09:53 [facility] Disclaimer: The information contained in this section may have been updated after the patient was seen, as this information can be updated by other users. Medical History Sinusitis COVID-19 virus infection Low back pain with sciatica Cystitis Torticollis, acute Exposure to COVID-19 virus Radial head fracture Strain of lumbar region Chest pain URI (upper respiratory infection) Bilateral flank pain Maxillary sinusitis, acute Thrush Bronchitis Knee pain, right Strain of Achilles tendon Right ankle injury Decreased ROM of ankle Tooth abscess Injury of right Achilles tendon Pain, dental Sinusitis Acute bronchitis Tobacco use Acute recurrent maxillary sinusitis Low back pain Tobacco abuse counseling Tobacco abuse Positive antinuclear antibody History of psoriatic arthritis Smoking greater than 30 pack years Fibrosis of lung COPD mixed type Asthma-chronic obstructive pulmonary disease overlap syndrome Dizziness Fatigue Grade I diastolic dysfunction Achilles rupture, right Herniated disc Allergic rhinitis Arthritis COPD (chronic obstructive pulmonary disease) Asthma, severe persistent Hypertension Surgical History History of carpal tunnel release Hx of cholecystectomy History of tubal ligation Family History Father Cancer Mother Hypertension Cancer Son Asthma Social History Smoking Status: Current every day smoker tobacco type: cigarettes packs per day: 1 second hand exposure: Yes alcohol intake: current alcohol intake frequency: holidays/special occasions only substance use type: denies use and other current occupational status: disabled Travel in the last 8 weeks?: None household members: other housing: house caffeine: Yes Have you lived/traveled outside US in past 30 days?: No Contact w/someone who lives/traveled outside US past 30 days?: No Exposure to someone with infectious disease in past 14 days?: No Do you have a fever (greater than 100.4 F or 38 C)?: No Have you tested positive for COVID-19?: No Exposed to someone with COVID-19 in past 14 days?: No Do you have a sore throat?: No Do you have a cough?: No Do you have any weakness?: No Do you have any diarrhea?: No Are you experiencing any unusual bleeding?: No Do you have any muscle aches/pain?: No Do you have any abdominal pain?: No Are you experiencing loss of taste or smell?: No Other Medical History Have you received the Flu Vaccine for this season: No Have you received the Pneumonia Vaccine: Yes ROS Obtained: Yes Systems reviewed as appropriate & no additional complaints except as documented Constitutional Constitutional: Reports as per HPI Physical Exam General General appearance: alert Head Head exam: normocephalic Eye Eye exam: Present PERRL and EOMI ENT ENT exam: Present normal oropharynx and mucous membranes moist Neck Neck exam: Present full ROM and trachea midline Respiratory Respiratory exam: Present wheezes Cardiovascular Cardiovascular exam: Present normal rhythm, tachycardia, normal heart sounds, +S1 and +S2 Extremities Exam Extremities exam: Present normal inspection, full ROM and normal capillary refill Neurological Exam Neurological exam: Present alert, oriented X3 and normal gait Skin Skin exam: Present warm, dry and intact HEART Score HEART Score HEART Score assessment performed?: Yes History (anamnesis): Slightly suspicious ECG: Normal Age: 45-65 years Risk factors: 1-2 risk factors Troponin: </= normal limit HEART Score: 2 Critical Care Critical Care Time Critical Care Time: No Medical Decision Making Chepe Inquiry Pt receiving controlled substance: No [place] was queried for this patient: No Vital Signs Vital Signs: 03/05/25 12:11 03/05/25 12:17 03/05/25 14:01 Temperature 98.5 F Temperature Source Temporal Artery Scan Pulse Rate 105 H Pulse Rate [Right Radial] 120 H Respiratory Rate 18 Blood Pressure 117/76 Blood Pressure [Right Arm] 138/78 Blood Pressure Mean [Right Arm] 98 Blood Pressure Source [Right Arm] Automatic Cuff Blood Pressure Position [Right Arm] Sitting 02 Sat by Pulse Oximetry 88 L 95 98 Oxygen Delivery Method Room Air Nasal Cannula Room Air Oxygen Flow Rate (LPM) 2 03/05/25 14:30 Temperature Temperature Source Pulse Rate 99 H Pulse Rate [Right Radial] Respiratory Rate Blood Pressure 98/81 L Blood Pressure [Right Arm] Blood Pressure Mean [Right Arm] Blood Pressure Source [Right Arm] Blood Pressure Position [Right Arm] 02 Sat by Pulse Oximetry 92 L Oxygen Delivery Method Room Air Oxygen Flow Rate (LPM) Lab Data Labs: Lab Results 03/05/25 12:28: WBC 9.1, RBC 4.41, Hgb 13.7, Hct 41.0, MCV 93.0, MCH 31.1, MCHC 33.4, RDW 13.4, Plt Count 203, MPV 10.3, Neut % (Auto) 78.8, Lymph % (Auto) 11.8, Sebastian % (Auto) 8.5, Eos % (Auto) 0.3, Baso % (Auto) 0.3, Neut # (Auto) 7.1, Lymph # (Auto) 1.1, Sebastian # (Auto) 0.8, Eos # (Auto) 0.0, Baso # (Auto) 0.0, Sodium 136, Potassium 3.6, Chloride 101, Carbon Dioxide 29, Anion Gap 9.6, BUN 5 L, Creatinine 0.70, Estimated Creat Clear 97, Estimated GFR 85, Est GFR ( Amer) 103, Glucose 90, Calcium 8.8, Magnesium 1.5 L, Total Bilirubin 0.7, AST 29, ALT 23, Alkaline Phosphatase 92, Troponin I < 0.01, NT-Pro-B Natriuret Pep 69.6, Total Protein 6.8, Albumin 3.8, Globulin 3.0, Albumin/Globulin Ratio 1.3, Lipase 42 03/05/25 12:36: Group A Strep Rapid Negative 03/05/25 12:38: SARS-CoV-2 (PCR) Not detected, Influenza A Untype (PCR) Not detected, Influenza Type B (PCR) Not detected 03/05/25 12:28 03/05/25 12:28 Response Orders (Tests/Meds): ED MEDICATIONS Discontinued Medications Generic Name Dose Route Start Last Admin Trade Name Freq PRN Reason Stop Dose Admin Albuterol/Ipratropium 9 ml 03/05/25 12:32 03/05/25 12:44 Ipratropium/Albuterol 3 Ml Neb IH 03/05/25 12:33 9 ml ONCE ONE Administration Dexamethasone Sodium Phosphate 8 mg 03/05/25 12:32 03/05/25 12:43 Dexamethasone 4mg/Ml 1ml Vial IV 03/05/25 12:33 8 mg ONCE ONE Administration Magnesium Sulfate 2 gm in 50 mls @ 50 mls/hr 03/05/25 12:32 03/05/25 14:17 Magnesium Sulfate 2gm/50ml Premix IV 03/05/25 13:31 Infused ONCE ONE Infusion Iopamidol 80 ml 03/05/25 12:57 03/05/25 12:58 Iopamidol-370 (76%);100ml Bottle IV 03/05/25 12:58 80 ml ONCE ONE Administration Sodium Chloride 50 ml 03/05/25 12:57 03/05/25 12:58 0.9 % Sodium Chloride 50 Ml Vial IV 03/05/25 12:58 50 ml ONCE ONE Administration Sodium Chloride 10 ml 03/05/25 12:57 03/05/25 12:58 Sodium Chloride 0.9% 10ml Syr (Rad Only) IV 03/05/25 12:58 10 ml ONCE ONE Administration ORDERS Category Date Time Status CTA Chest [CT angio chest PE protocol] Stat Cat Scan 03/05/25 12:31 Completed BNP [NT Pro Brain Natriuretic Pep.] Stat Lab 03/05/25 12:28 Completed CBC [Complete Blood Count Auto Diff] Stat Lab 03/05/25 12:28 Completed Comprehensive Metabolic Panel Stat Lab 03/05/25 12:28 Completed Lipase Stat Lab 03/05/25 12:28 Completed Magnesium Stat Lab 03/05/25 12:28 Completed Rapid PCR Covid and Flu A/B Stat Lab 03/05/25 12:38 Completed Rapid Strep Scrn Group A [Strep Scrn Group A (Rapid)] Lab 03/05/25 12:36 Completed Stat Trop I [Troponin I] Stat Lab 03/05/25 12:28 Completed Troponin I Q3H Lab 03/05/25 15:45 Ordered Troponin I Q3H Lab 03/05/25 18:45 Ordered Urinalysis and Microscopic Stat Lab 03/05/25 12:36 Ordered Strep Screen Confirmation Stat Micro 03/05/25 12:36 Received MDM Narrative Medical Decision Narrative: patient is a 59-year-old female presenting to the emergency department for evaluation of cough and shortness of breath. Patient is hemodynamically stable and nontoxic-appearing upon arrival, afebrile. Differential diagnosis includes COPD, asthma. Workup will be conducted with hematologic labs, specific imaging. Initial inventions include crystalloid bolus, analgesics, antibiotics. Initial workup reviewed by me hematologic labs are remarkable for. Normal white count 9.1, H&H were normal troponin was normal less than 0.01 BUN and creatinine were normal mag was low but we replaced this. BNP was normal. CT scan showed no PE but it did show some emphysema changes. Patient will be given steroids and antibiotics for COPD exacerbation. Patient will follow-up with her PCP tomorrow as scheduled. Patient safe for discharge home
[2025-03-05] MEDS: IPRATROPIUM/ALBUTEROL 3 ML NEB 9 ML IH (12:44)
[2025-03-05] MEDS: MAGNESIUM SULFATE IN WATER 2 GM/50 ML PIGGYBACK IV (12:44)
[2025-03-05 12:45] LABS: Blood Urea Nitrogen 5 mg/dl (7-17); Creatinine Clearance Estimated 97 mL/min (50-200); Creatinine,Serum 0.70 mg/dl (0.52-1.04); Estimated Glomerular Filt Rate 85 ml/min (>60); GFR (African American) 103 ML/MIN (>60)
[2025-03-05 12:46] LABS: Alanine Aminotransferase 23 U/L (12-78); Albumin/Globulin Ratio 1.3 (1.1-1.8); Alkaline Phosphatase 92 U/L (38-126); Anion Gap 9.6 mEq/L (5-15); Aspartate Amino Transferase 29 U/L (14-36); Bilirubin,Total 0.7 mg/dl (0.2-1.3); Calcium 8.8 mg/dl (8.4-10.2); Carbon Dioxide 29 mmol/L (22.0-30.0); Globulin 3.0 g/dL (1.3-3.2); Glucose 90 mg/dl (74-100); Lipase 42 U/L (23-300); Magnesium 1.5 mg/dl (1.6-2.3); Total Protein,Serum 6.8 g/dl (6.3-8.2)
[2025-03-05 12:50] LABS: Strep Scrn Group A (Rapid) Negative (Negative)
[2025-03-05 12:55] LABS: NT Pro Brain Natriuretic Pep. 69.6 pg/mL (0-125)
[2025-03-05] MEDS: 0.9 % SODIUM CHLORIDE 50 ML VIAL IV (12:58)
[2025-03-05] MEDS: IOPAMIDOL-370 (76%);100ML BOTTLE 80 ML IV (12:58)
[2025-03-05] MEDS: SODIUM CHLORIDE 0.9% 10ML SYR (RAD ONLY) 10 ML IV (12:58)
[2025-03-05 13:04] LABS: Troponin I < 0.01 ng/ml (0.00-0.034)
[2025-03-05 14:01] VITALS: BP 117/76; PULSE 105; O2SAT 98
[2025-03-05 14:30] VITALS: BP 98/81; PULSE 99; O2SAT 92
[2025-03-05 15:32] VITALS: BP 125/89; PULSE 92; RESP 20; TEMP 36.8; O2SAT 99
== END 2025-03-05 15:32 | disposition home or self-care (01) ==
PROVIDERS: Nurse Practitioner; Emergency Provider Student in an Organized Health Care Education/Training Program; PCP Nurse Practitioner Family
DX: J44.1 Chronic obstructive pulmonary disease with (acute) exacerbation (principal); R00.0 Tachycardia, unspecified; F17.210 Nicotine dependence, cigarettes, uncomplicated
CPT/HCPCS: 71275; 80053; 83690; 83735; 83880; 84484; 85025; 87430; 87636; 93005; 96365; 96375; 99285; J1100; J3475; Q9967

== ENCOUNTER 2025-03-06 10:47 | Emergency (ER) | payer OTHER, SELFPAY ==
--- OUTSIDE RECORDS SUMMARY | 2025-01-07 14:30 | XMS_ITS | Encounter Summary ---
Author Organization Healthcare Address [address] [place] [address] Care Team Providers Care High Value Associate Name Role Phone Alma Gross GRINDER LAP Primary Care Provider +1- [phone] Reason for Referral * Imaging (Routine) - Closed Specialty Diagnoses / Procedures Referred By Joyce jones Referred To Contact Radiology Diagnoses Shortness of breath Procedures CT Chest wo IV Contrast May [address] [facility] [address] [place] [address] Phone: tel: fax: Referral ID Status Reason Start Date Expiration Date Visits Re quested Visits Authorized [id number] Closed 01/07/2025 07/09/2026 1 1 Reason for Visit * Reason Comments Follow-up Psoriatic arthritis (CMS/HCC) Encounter Details Date Type Department Care Team (Late st Contact Info) Description 01/07/2025 2:30 PM EDT Office Visit [place] [facility] [address] [place] [address] May, GRINDER LAP [address] [place] [address] Psoriatic arthritis (CMS/HCC) (Primary Dx); High risk medication use; Raynaud's phenomenon without gangrene; Chronic obstructive pulmonary disease, unspecified COPD type ([facility]); SILVIA positive; Gastroesophageal reflux disease, unspecified [...] * Progress Notes - Matthew, May R, GRINDER LAP - 01/07/2025 2:30 PM EDT Subjective Patient [...] Neurosurgery for spine pain. He is in [facility]. Getting an injection in each SI [...] No hx of alcohol abuse. 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) Fallen arches Gallstone Herniated cervical disc [...] file Social Connections: Unknown (03/02/2023) Received from [facility] Family and Community Support Help with Day-to-Day Activities: Not on file Lonely or Isolated: Not on file Intimate Partner Violence: Unknown (03/02/2023) Received from [facility] Abuse Screen Unsafe at Home or Work/School: Not on file Feels Threatened by Someone?: Not on file Does Anyone Keep You from Contacting Others or Doint Things Outside the Home?: Not on file Physical Sign of Abuse Present: Not on file Housing Stability: Unknown (03/02/2023) Received from [facility] Housing Stability Current Living Arrangements: Not [...] No diagnosis found. Diagnosis Plan 1. PsA/ ISLVIA positive 1:1280 nucleolar/ Scalp Psoriasis Diff Dx: PsA, RA, SpA No synovitis or Dactylitis Right achilles tender and swollen ( hx of tenosynovitis, tendon tear,) Brother with Psoriasis History sounds mixed mechanical/inflammatory + enthesopathy ? Raynaud's on feet noticed recently +GERD Dellrose criteria + family hx + nail dystrophy [...] of chronic medical conditions. Treatment optionswere discussed, [id number] [phone]. Raynauds/ SILVIA positive 1:1280 nucleolar Diff Dx: MCTD, Scleroderma, Myositis, ILD No skin thickening , sclerodactyly or telangiectasia Scleroderma labs ADDENDUM 04/21/2024 CBC, Creat and LFTs WNL SILVIA neg Myositis panel neg CRP and ESR WNL RNA polymerase III ab 58 (H) suspicious for possible Systemic Sclerosis with associated ILD rechecktoday along with SILVIA She has audience development manager at [facility] We discussed referral to ILD team if [...] Parts of this note were dictated using [employer] Direct voice recognition software. As a result, errors may occur. When identified, these suggestion clerk errors are corrected, but while every attempt is made to prevent/correct these, errors may still exist. , documented in this encounter Plan of Treatment Upcoming Encounters Date Type Department Care Team (Late st Contact Info) Description 03/24/2025 9:30 AM EST Office Visit [facility] Medicine Specialties [address] [place] [address] Matthew, May R, GRINDER LAP [address] [place] [address] 03/27/2025 8:00 AM EST Office Visit [facility] Medicine Specialties [address] [place] [address] Kirby Arthur MD [address] [place] [address] documented as of this encounter [...] MD on 02/06/2025 2:52 PM may Matthew GRINDER LAP IMG CT PROCEDURES Final Res ult * Rheumatoid Factor, Plasma (01/07/2025 4:03 PM EDT) Rheumatoid Factor, Plasma <10 <14 IU/mL 01/07/2025 10:33 PM EDT [facility] Blood Venous blood specimen / Unknown Venipuncture / Unknown 01/07/2025 4:03 PM EDT 01/07/2025 4:03 PM EDT May Matthew GRINDER LAP LAB BLOOD ORDERABLES Final Result [facility] [address] [place] [address] * Cryoglobulin, Serum (SO) (01/07/2025 4:03 PM EDT) [facility] Cryoglobulin, S Negative Negative %ppt 01/12/2025 10:33 PM EDT [facility] (MIKE) Comment: This test is negative at 24 hours. All samples are held and reviewed again at 7 days. If delayed precipitation occurs after 7 days, Immunofixation will be performed and an additional report will follow. Test Performed by: [facility] [address] [place] [address] Handle Turner: Barbara Easley Ph.D.; CLIA# [id number] Blood Venous blood specimen / Unknown Venipuncture / Unknown 01/07/2025 4:03 PM EDT 01/07/2025 4:03 PM EDT May Matthew GRINDER LAP LAB REF LAB BLOOD AND FLUID ORD Final Result [facility] ([facility]KE) * ANTI NUCLEAR AB (01/07/2025 4:03 PM EDT) [facility] SILVIA INTERPRETIVE COMMENT See Note 01/10/2025 5:13 PM EDT [facility] ([employer]) Anti Nuc Ab Screen <1:80 <1:80 01/10/2025 5:13 PM EDT [facility] ([employer]) Blood Venous blood specimen / Unknown Venipuncture / Unknown 01/07/2025 4:03 PM EDT 01/07/2025 4:03 PM EDT Narrative [facility] LISA) - 01/10/2025 5:13 PM [...] not necessarily rule out SARD. Performed By: [facility] [address] [place] [address] Raw Shellfish Preparer: Martell Anton MD, PhD CLIA Number: [id number] May R Matthew COURTNEY LAB BLOOD ORDERABLES Final Result [facility] [employer] (MIKE) [address] [place] [address] * C4 Complement (01/07/2025 4:03 PM EDT) C4 Complement 29 13 - 36 mg/dL 01/07/2025 10:33 PM EDT [facility] Blood Venous blood specimen / Unknown Venipuncture / Unknown 01/07/2025 4:03 PM EDT 01/07/2025 4:03 PM EDT May Matthew ROBERTSONN LAB BLOOD ORDERABLES Final Result Performing Organization Address City/[facility]/ZIP Co de Phone Number [facility] [address] [place] [address] * (ABNORMAL) C3 Complement (01/07/2025 4:03 PM EDT) C3 Complement 174(H) 84 - 166 mg/dL 01/07/2025 10:33 PM EDT [facility] Blood Venous blood specimen / Unknown Venipuncture / Unknown 01/07/2025 4:03 PM EDT 01/07/2025 4:03 PM EDT May Matthew GRINDER LAP LAB BLOOD ORDERABLES Final Result Performing Organization Address [facility] Co de Phone Number [facility] [address] [place] [address] * (ABNORMAL) C-Reactive Protein, Plasma (01/07/2025 4:03 PM EDT) CRP, Plasma 11.5(H) <=8.0 mg/L 01/07/2025 7:54 PM EDT [facility] Blood Venous blood specimen / Unknown Venipuncture / Unknown 01/07/2025 4:03 PM EDT 01/07/2025 4:03 PM EDT Narrative [facility] - 01/07/2025 7:54 PM EDT This CRP test is appropriate for assessment of infection, systemic inflammation and/or tissue injury. To assess cardiovascular disease risk order high sensitivity CRP (CRPH). May Matthew GRINDER LAP LAB BLOOD ORDERABLES Final Result Performing Organization Address [facility]/ZIP Co de Phone Number [facility] [address] [place] [address] * Hepatic Function Panel (01/07/2025 4:03 PM EDT) Direct Bilirubin, Plasma <0.2 <=0.3 mg/dL 01/07/2025 7:54 PM EDT [facility] Alkaline Phosphatase, Plasma 90 46 - 142 U/L 01/07/2025 7:54 PM EDT [facility] Total Bilirubin, Plasma 0.2 0.2 - 1.1 mg/dL 01/07/2025 7:54 PM EDT [facility] Albumin, Plasma 3.8 3.5 - 5.2 g/dL 01/07/2025 7:54 PM EDT [facility] Total Protein 6.4 6.3 - 7.9 g/dL 01/07/2025 7:54 PM EDT [facility] ALT, Plasma 26 10 - 35 U/L 01/07/2025 7:54 PM EDT [facility] AST, Plasma 30 10 - 35 U/L 01/07/2025 7:54 PM EDT [facility] Blood Venous blood specimen / Unknown Venipuncture / Unknown 01/07/2025 4:03 PM EDT 01/07/2025 4:03 PM EDT May Matthew GRINDER LAP LAB BLOOD ORDERABLES Final Result Performing Organization Address [facility] Co de Phone Number [facility] [address] [place] [address] * Creatinine, Plasma (01/07/2025 4:03 PM EDT) [facility] Creatinine, Plasma 0.68 0.60 - 1.10 mg/dL 01/07/2025 7:54 PM EDT [facility] eGFRcr 99.2 mL/min/1.7 3m*2 01/07/2025 7:54 PM EDT [facility] Comment:Reported eGFRcr in m L/min/1.73m2 is based the CKD-EPI 2020 equation that does not use a race coefficient. Blood Venous blood specimen / Unknown Venipuncture / Unknown 01/07/2025 4:03 PM EDT 01/07/2025 4:03 PM EDT May Matthew GRINDER LAP LAB BLOOD ORDERABLES Final Result Performing Organization Address [facility]/ZIP Co de Phone Number [facility] [address] [place] [address] * (ABNORMAL) CBC and Differential (01/07/2025 4:03 PM EDT) WBC Count 9.02 3.70 - 10.30 10*3/uL LAB HEMATOLOGY METHOD 01/07/2025 7:08 PM EDT [facility] RBC Count 4.66 3.90 - 5.20 10*6/uL LAB HEMATOLOGY METHOD 01/07/2025 7:08 PM EDT [facility] HGB 14.5 11.2 - 15.7 g/dL LAB HEMATOLOGY METHOD 01/07/2025 7:08 PM EDT [facility] HCT 43.6 34.0 - 45.0 % LAB HEMATOLOGY METHOD 01/07/2025 7:08 PM EDT [facility] Platelet Count 269 155 - 369 10*3/uL LAB HEMATOLOGY METHOD 01/07/2025 7:08 PM EDT [facility] MCV 94 79 - 98 fL LAB HEMATOLOGY METHOD 01/07/2025 7:08 PM EDT [facility] MCH 31.1 26.0 - 32.0 pg LAB HEMATOLOGY METHOD 01/07/2025 7:08 PM EDT [facility] MCHC 33.3 30.7 - 35.5 g/dL LAB HEMATOLOGY METHOD 01/07/2025 7:08 PM EDT [facility] RDW 13.7 11.5 - 14.5 % LAB HEMATOLOGY METHOD 01/07/2025 7:08 PM EDT [facility] MPV 11.7 8.8 - 12.5 fL LAB HEMATOLOGY METHOD 01/07/2025 7:08 PM EDT [facility] nRBC 0.0 <=0.0 per 100 WBCs LAB HEMATOLOGY METHOD 01/07/2025 7:08 PM EDT [facility] Differential Type Automated LAB HEMATOLOGY METHOD 01/07/2025 7:08 PM EDT [facility] Neutrophils % 68 % LAB HEMATOLOGY METHOD 01/07/2025 7:08 PM EDT [facility] Lymphocytes % 21 % LAB HEMATOLOGY METHOD 01/07/2025 7:08 PM EDT [facility] Monocytes % 8 % LAB HEMATOLOGY METHOD 01/07/2025 7:08 PM EDT [facility] Eosinophils % 2 % LAB HEMATOLOGY METHOD 01/07/2025 7:08 PM EDT [facility] Basophils % 1 % LAB HEMATOLOGY METHOD 01/07/2025 7:08 PM EDT [facility] Immature Granulocytes % 0 % LAB HEMATOLOGY METHOD 01/07/2025 7:08 PM EDT [facility] Neutrophils Absolute 6.21(H) 1.60 - 6.10 10*3/uL LAB HEMATOLOGY METHOD 01/07/2025 7:08 PM EDT [facility] Lymphocytes Absolute 1.90 1.20 - 3.90 10*3/uL LAB HEMATOLOGY METHOD 01/07/2025 7:08 PM EDT [facility] Monocytes Absolute 0.70 0.30 - 0.90 10*3/uL LAB HEMATOLOGY METHOD 01/07/2025 7:08 PM EDT [facility] Eosinophils Absolute 0.14 0.00 - 0.50 10*3/uL LAB HEMATOLOGY METHOD 01/07/2025 7:08 PM EDT [facility] Basophils Absolute 0.05 0.00 - 0.10 10*3/uL LAB HEMATOLOGY METHOD 01/07/2025 7:08 PM EDT [facility] Immature Granulocytes Absolute 0.02 0.00 - 0.06 10*3/uL LAB HEMATOLOGY METHOD 01/07/2025 7:08 PM EDT [facility] Blood Venous blood specimen / Unknown Venipuncture / Unknown 01/07/2025 4:03 PM EDT 01/07/2025 4:03 PM EDT Narrative [facility] - 01/07/2025 7:08 PM EDT Therapeutic decision making should be based on absolute values, rather than percentages. May Matthew GRINDER LAP LAB BLOOD ORDERABLES Final Result [facility] [address] [place] [address] * (ABNORMAL) RNA Polymerase III Antibody, IgG (01/07/2025 4:03 PM EDT) RNA Polymerase III Antibody, IgG 103(H) 0 - 19 Units 01/10/2025 9:46 PM EDT [facility] ([facility]) Blood Venous blood specimen / Unknown Venipuncture / Unknown 01/07/2025 4:03 PM EDT 01/07/2025 4:03 PM EDT Narrative [facility] [employer] LISA) - 01/10/2025 9:46 PM EDT INTERPRETIVE [...] antibodies associated with SSc, including centromere, Scl-70, U3-WORSHIP PASTOR, PM/Scl, or Th/To. Performed By: [facility] [address] [place] [address] [employer] Preparer: Martell Anton MD, PhD CLIA Number: [id number] may Matthew GRINDER LAP LAB BLOOD ORDERABLES Final Result [facility] [employer]) [address] [id number] * Centromere Antibody, IgG (01/07/2025 4:03 PM EDT) Centromere Ab, IgG 0 0 - 40 AU/mL 01/11/2025 12:33 AM EDT [facility] [employer]) Blood Venous blood specimen / Unknown Venipuncture / Unknown 01/07/2025 4:03 PM EDT 01/07/2025 4:03 PM EDT Narrative [facility] [employer] LISA) - 01/11/2025 12:33 AM EDT INTERPRETIVE [...] other antibodies associated with SSc, including Scl-70, U3-WORSHIP PASTOR, PM/Scl, or Th/To. Performed By: [facility] [address] [place] [address] [employer] Preparer: Martell Anton MD, PhD CLIA Number: [id number] [facility] BLOOD ORDERABLES Final Result [employer]) [address] [place], [place] [id number] * Anti-scleroderma antibody (01/07/2025 4:03 PM EDT) SCLERODERMA (SCL-70) (DAVID) ANTIBODY, IGG 0 0 - 40 AU/mL 01/11/2025 12:33 AM EDT [facility] ([employer]) Blood Venous blood specimen / Unknown Venipuncture / Unknown 01/07/2025 4:03 PM EDT 01/07/2025 4:03 PM EDT Narrative [facility]) - 01/11/2025 12:33 AM EDT INTERPRETIVE INFORMATION: [...] testing for centromere, RNA polymerase III and U3-WORSHIP PASTOR, PM/Scl, or Th/To antibodies. Performed By: [facility] [address] [place] [address] [employer] Preparer: Martell Anton MD, PhD CLIA Number: [id number] may [facility] LAB BLOOD ORDERABLES Final Result [facility] ([facility]KE) [address] [place], [place] [id number] * Quantiferon TB Gold Plus (01/07/2025 4:03 PM EDT) [facility] Quantiferon TB Gold Plus Result Negative Negative 01/08/2025 7:53 PM EDT [facility] TB Nill Value 0.0403 IU/mL 01/08/2025 7:53 PM EDT [facility] TB Antigen 1 0.0249 IU/mL 01/08/2025 7:53 PM EDT [facility] TB Antigen 2 0.0152 IU/mL 01/08/2025 7:53 PM EDT [facility] TB Mitogen 9.9597 IU/mL 01/08/2025 7:53 PM EDT [facility] Blood Venous blood specimen / Unknown Venipuncture / Unknown 01/07/2025 4:03 PM EDT 01/07/2025 4:03 PM EDT Narrative [facility] - 01/08/2025 7:53 PM EDT Responses to the Mitogen positive control and occasionally to TB antigen can be above the assay range. For calculation purposes: IFN-gamma values > 10 IU/mL are handled as 10 IU/mL. May Matthew GRINDER LAP LAB BLOOD ORDERABLES Final Result Performing Organization Address City/[facility] Co de Phone Number [facility] [address] [place] [address] * Hepatitis C Antibody (01/07/2025 4:03 PM EDT) Hepatitis C Antibody Negative Negative 01/07/2025 7:32 PM EDT [facility] Blood Venous blood specimen / Unknown Venipuncture / Unknown 01/07/2025 4:03 PM EDT 01/07/2025 4:03 PM EDT May Matthew COURTNEY LAB BLOOD ORDERABLES Final Result Performing Organization Address City/[facility]/ZIP Co de Phone Number [facility] [address] [place] [address] * Hepatitis B Core Total Antibody IgG,IgM (01/07/2025 4:03 PM EDT) Hepatitis B Core Total Antibody IgG,IgM Negative Negative 01/07/2025 8:30 PM EDT [facility] Blood Venous blood specimen / Unknown Venipuncture / Unknown 01/07/2025 4:03 PM EDT 01/07/2025 4:03 PM EDT May Matthew GRINDER LAP LAB BLOOD ORDERABLES Final Result Performing Organization Address City/[facility]/ZIP Co de Phone Number [facility] [address] [place] [address] documented in this encounter Visit Diagnoses Diagnosis [...] as of this encounter Care Teams High Value Associate Relationship Specialty Start Date End Date Alma Gross APRN [address] [place] [address] PCP - General 05/08/23 documented as of this encounter
--- OUTSIDE RECORDS SUMMARY | 2025-02-06 13:25 | XMS_ITS | Encounter Summary ---
Author Organization [facility] Address [address] [place] [address] Care Team Providers Care Lung Splitter Name Role Phone Alma Gross SHERWIN Primary Care Provider +1- [phone] Reason for Referral * Imaging (Routine) - Closed Specialty Diagnoses / Procedures Referred By Joyce jones Referred To Contact Radiology Diagnoses Shortness of breath Procedures CT Chest wo IV Contrast May, [address] [address] Phone: tel: fax: Referral ID Status Reason Start Date Expiration Date Visits Re quested Visits Authorized [id number] Closed 01/07/2025 07/09/2026 1 1 Reason for Visit * Imaging (Routine) - Closed Specialty Diagnoses / Procedures Referred By Joyce jones Referred To Contact Radiology Diagnoses Shortness of breath Procedures CT Chest wo IV Contrast May, [address] [facility] [address] [place] [address] Phone: tel: fax: Referral ID Status Reason Start Date Expiration Date Visits Re quested Visits Authorized [id number] Closed 01/07/2025 07/09/2026 1 1 Encounter Details Date Type Department Care Team (Latest Contact Info) Description 02/06/2025 1:25 PM EDT - 02/06/2025 11:59 PM EDT Hospital Encounter [facility] [address] [place] [address] Shortness of breath Discharge Disposition: [...] mg every 4 weeks. 5 mL 01/09/2025 traMADol (Ultram) 50 MG tablet 1 tablet (50 mg). 06/19/2023 traZODone (Desyrel) 50 MG tablet Take 1 tablet (50 mg) by mouth at night if needed for sleep. Trelegy Ellipta 200-62.5-25 MCG/ACT aerosol powder Inhale 1 puff. 06/16/2023 varenicline (Chantix) 1 MG tablet TAKE 1 TABLET BY MOUTH TWICE DAILY AFTER COMPLETION OF STARTER PACK 01/28/2024 documented as of this encounter Plan of Treatment Upcoming Encounters Date Type Department Care Team (Late st Contact Info) Description 03/24/2025 9:30 AM EST Office Visit [facility] Medicine Specialties [address] [place] [address] Cristel Castro APRN [address] [place] [address] 03/27/2025 8:00 AM EST Office Visit [facility] Medicine Specialties [address], [address] [place] [address] Kirby Arthur MD [address] [place] [address] documented as of this encounter Procedures Procedure [...] MD on 02/06/2025 2:52 PM May Matthew SHERWIN IMG CT PROCEDURES Final Res ult documented [...] documented as of this encounter Care Teams Lung Splitter Relationship Specialty Start Date End Date Alma Gross APRN [address] [place] [address] PCP - General 05/08/23 documented as of this encounter
[2025-03-06 10:51] VITALS: BP 155/69; PULSE 106; O2SAT 92
--- NOTE | 2025-03-06 10:54 | ECG_ITS ---
APPROVED REPORT Exam: Resting ECG HR:100 bpm ECG Measurements Heart Rate 100 AXES NJ 158 P 79 QRSd 92 QRS 55 QT 342 T 76 QTc 399 Conclusion SINUS TACHYCARDIA POSSIBLE RIGHT ATRIAL ENLARGEMENT [0.25mV P-WAVE] MODERATE ST DEPRESSION [0.05+ mV ST DEPRESSION] ABNORMAL ECG Electronically signed by : ROSALIA PARRA, 03/06/2025 16:05:32
[2025-03-06 10:57] VITALS: BP 155/69; PULSE 118; RESP 22; TEMP 36.8; O2SAT 88; BMI 33.6
--- NOTE | 2025-03-06 11:01 | XR_ITS ---
FINAL REPORT CLINICAL HISTORY: cough copd COMPARISON: 05/23/2023 FINDINGS: PA and lateral views of the chest were obtained. The cardiac and mediastinal silhouettes are within normal limits. The lungs are clear. There is no pleural effusion or pneumothorax. No acute osseous abnormality is identified. IMPRESSION: No radiographic evidence of acute cardiac or pulmonary disease. Reviewed, Interpreted and Dictated by Katherin Lopez MD Transcribed by Amparo Pimentel Authenticated and [facility]
--- OUTSIDE RECORDS SUMMARY | 2025-03-06 11:01 | XMS_ITS | Encounter Summary ---
Author Organization Healthcare Address [address] [place] [address] Care Team Providers Care Featherer Name Role Phone Alma Gross PACKAGE DELIVERY ROOM SERVICE RUNNER Primary Care Provider +1- [phone] Encounter Details Date Type Department Care Team (Late st Contact Info) Description 01/12/2025 Telephone [facility] [address] [place] [address] Matthew, May R, PACKAGE DELIVERY ROOM SERVICE RUNNER [address] [place] [address] Social History Tobacco Use Types [...] about a PA Best contact number: Other: [phone] Optimal time of day to reach caller: ANYTIME Additional comments/information from caller: None Note: Please do not reply to this message. Follow-up communication and further actions as a result of this message need to be communicated with the patient directly, if the patient is not active onMyChart. If the patient is active on MyChart, they will receive notification of the communication/outcome via Next[employer]. documented in this encounter Plan of Treatment Upcoming Encounters Date Type Department Care Team (Late st Contact Info) Description 03/24/2025 9:30 AM EST Office Visit [facility]ties [address] [place] [address] Cristel Castro APRN [address] [facility] [address] [place] [address] 03/27/2025 8:00 AM EST Office Visit [facility] [address] [place] [address] Kirby Arthur MD [address] [place] [address] documented as of this encounter Visit Diagnoses [...] documented as of this encounter Care Teams Featherer Relationship Specialty Start Date End Date Alma Gross APRN [address] [place] [address] (work) PCP - General 05/08/23 documented as of this encounter
--- OUTSIDE RECORDS SUMMARY | 2025-03-06 11:01 | XMS_ITS | Encounter Summary ---
Author Organization [facility] Address [address] [place] [address] Care Team Providers Care Painter Structural Steel Name Role Phone Alma Gross SHERWIN Primary Care Provider +1- [phone] Encounter Details Date Type Department Care Team [...] 03/24/2025 9:30 AM EST Office Visit [facility] Medicine Specialties [address] [place] [address] Matthew, May R, MENTAL HYGIENIST [address] [place] [address] 03/27/2025 8:00 AM EST Office Visit [place] [facility] [address] [place] [address] Kirby Arthur MD [address] [place] [address] documented as of this encounter [...] documented as of this encounter Care Teams Painter Structural Steel Relationship Specialty Start Date End Date Alma Gross APRN [address] [place] [address] PCP - General 05/08/23 documented as of this encounter
--- OUTSIDE RECORDS SUMMARY | 2025-03-06 11:01 | XMS_ITS | Encounter Summary ---
Author Organization Healthcare Address [address] [place] [address] Care Team Providers Care Motor Equipment Sergeant Name Role Phone Alma Gross SHERWIN Primary Care Provider +1- [phone] Encounter Details Date Type Department Care Team [...] Visit [place] [facility] [address] [place] [address] Matthew, May R, BEVERAGE SPECIALIST [address] [place] [address] 03/27/2025 8:00 AM EST Office Visit [facility] [address] [place] [address] Kirby Arthur MD [address] [place] [address] documented as of this encounter [...] documented as of this encounter Care Teams Motor Equipment Sergeant Relationship Specialty Start Date End Date Alma Gross APRN [address] [place] [address] PCP - General 05/08/23 documented as of this encounter
--- OUTSIDE RECORDS SUMMARY | 2025-03-06 11:01 | XMS_ITS | Encounter Summary ---
Author Organization [facility] Address [address] [place] [address] Care Team Providers Care Linseed Cake Trimmer Name Role Phone Alma Gross SHERWIN Primary Care Provider +1- [phone] Reason for Referral * Imaging (Routine) - Authorized Specialty Diagnoses / Procedures Referred By Joyce jones Referred To Contact Cardiology Diagnoses Shortness of breath Procedures Echo, Adult Transthoracic Complete May, [address] [place] [address] Phone: tel: fax: Referral ID Status Reason Start Date Expiration Date Visits Requested Visits Authorized [id number] Authorized Perform Procedure 01/27/2025 07/29/2026 1 1 Encounter Details Date Type Department Care Team (Late st Contact Info) Description 01/27/2025 Telephone [place] [facility] [address] [place] [address] Matthewmay, [address] [place] [address] Social History Tobacco Use Types [...] Notes * Telephone Encounter - Matthew, May, PAPERHANGER CONTRACTOR - 01/27/2025 12:43 PM EDT Called patient with results. RNA polymerase III ab increased from 58 to 103. She has HRCT scheduledin a week here at . I will get [facility] from [facility] PFT, new referral placed to pulmonology for second opinion possible ILD. ECHO ordered. Pt denied skin thickening, she does have GERDwith Dysphagia, Raynaud's but neg SILVIA. Concern for possible Scleroderma. documented in this encounter Plan of Treatment Upcoming Encounters Date Type Department Care Team (Late st Contact Info) Description 03/24/2025 9:30 AM EST Office Visit [place] [facility] [address] [place] [address] Matthewmay [address] [place] [address] 03/27/2025 8:00 AM EST Office Visit [facility] Medicine Specialties [address] [place] [address] Kirby Arthur MD [address] [place] [address] Scheduled Orders Name Type Priority Associated Diagnoses [...] documented as of this encounter Care Teams Linseed Cake Trimmer Relationship Specialty Start Date End Date Alma Gross APRN [address] [id number] PCP - General 05/08/23 documented as of this encounter
--- OUTSIDE RECORDS SUMMARY | 2025-03-06 11:01 | XMS_ITS | Clinical Summary ---
Author Organization [facility] Address [address] [place] [address] Care Team Providers Care Case Briefer Name Role Phone Alma Gross Cathy COURTNEY Primary Care Provider +1- [phone] Allergies No known active allergies Medications albuterol [...] - 02/06/2025 11:59 PM EDT Hospital Encounter [facility] [address]nd [place] [address] Shortness of breath Discharge Disposition: Home or Self Care 02/06/2025 Orders Only [facility] [address], [address]nd [place] [address] May R, APPLICATIONS SALES CONSULTANT Hypodense mass of liver (Primary Dx) 02/06/2025 Travel 01/27/2025 Telephone [facility] [address], [address]nd [place] [address] Matthewmay R, APPLICATIONS SALES CONSULTANT 01/27/2025 Orders Only [facility] [address], [address] [place] [address] May R, APPLICATIONS SALES CONSULTANT Shortness of breath (Primary Dx); Chronic obstructive pulmonary disease, unspecified COPD type (CMS/HCC) 01/26/2025 Telephone [facility] [address], [address]nd [place] [address] May, APPLICATIONS SALES CONSULTANT 01/12/2025 Telephone [facility] Medicine Specialties [address] [facility], 2nd [place] [address] May, APPLICATIONS SALES CONSULTANT 01/07/2025 2:30 PM EDT Office Visit [facility] Medicine Specialties [address], [address] [place] [address] May Psoriatic arthritis (CMS/HCC) (Primary Dx); High risk medication use; Raynaud's phenomenon without gangrene; Chronic obstructive pulmonary disease, unspecified COPD type (CMS/HCC); SILVIA positive; Gastroesophageal reflux disease, unspecified whether esophagitis present; Shortness of breath 01/07/2025 Telephone [facility] Medicine Specialties [address] [place] [address], [address] [place] [address] Nayeli Izaguirre, PharmD [facility] New Start [...] Description 03/24/2025 9:30 AM EST Office Visit [facility] Medicine Specialties [address], [address] [place] [address] Cristel Castro APRN [address] [place] [address] 03/27/2025 8:00 AM EST Office Visit [facility] Medicine Specialties [address], [address] [place] [address] Kirby Arthur MD [address] [place] [address] Health Maintenance Due Date Last Done Comments [...] - Risk 60-74 years 1-dose series) 2023 [id number] Vaccine (5 - Moderna risk season) 2025 [...] Serum (SO) (01/07/2025 4:03 PM EDT) Pathologist [facility] Cryoglobulin, S Negative Negative %ppt 01/12/2025 10:33 PM EDT [facility] ([facility]) Comment: This test is negative at 24 hours. All samples are held and reviewed again at 7 days. If delayed precipitation occurs after 7 days, Immunofixation will be performed and an additional report will follow. Test Performed by: [facility] [place] [address] Commodities Manager: Barbara Easley Ph.D.; CLIA# [id number] Blood Venous blood specimen / Unknown Venipuncture / Unknown 01/07/2025 4:03 PM EDT 01/07/2025 4:03 PM EDT may R Matthew COURTNEY LAB REF LAB BLOOD AND FLUID ORD Final Result [facility] ([place]) * (ABNORMAL) RNA Polymerase III Antibody, IgG (01/07/2025 4:03 PM EDT) Pathologist [facility] RNA Polymerase III Antibody, IgG 103(H) 0 - 19 Units 01/10/2025 9:46 PM EDT [facility] ([place]) Blood Venous blood specimen / Unknown Venipuncture / Unknown 01/07/2025 4:03 PM EDT 01/07/2025 4:03 PM EDT Narrative [facility] DERRICK GONZALEZ) - 01/10/2025 9:46 PM EDT [...] antibodies associated with SSc, including centromere, Scl-70, U3-TOOL SETTER APPRENTICE, PM/Scl, or Th/To. Performed By: [facility] [address] [place] [address] Interactive Media Designer: Martell Anton MD, PhD CLIA Number: [id number] may Matthew APPLICATIONS SALES CONSULTANT LAB BLOOD ORDERABLES Final Result [facility] [employer] [facility]) [address] [place] [address] * Centromere Antibody, IgG (01/07/2025 4:03 PM EDT) Pathologist [facility] Centromere Ab, IgG 0 0 - 40 AU/mL 01/11/2025 12:33 AM EDT [facility] ([place]) Blood Venous blood specimen / Unknown Venipuncture / Unknown 01/07/2025 4:03 PM EDT 01/07/2025 4:03 PM EDT Narrative [facility] DERRICK ([place]) - 01/11/2025 12:33 AM EDT [...] other antibodies associated with SSc, including Scl-70, U3-TOOL SETTER APPRENTICE, PM/Scl, or Th/To. Performed By: [facility] [address] [place] [address] Interactive Media Designer: Martell Anton MD, PhD CLIA Number: [id number] May R Matthew COURTNEY LAB BLOOD ORDERABLES Final Result [facility] ([place]) [address] [id number] * Hepatitis C Antibody (01/07/2025 4:03 PM EDT) Hepatitis C Antibody Negative Negative 01/07/2025 7:32 PM EDT [facility] Blood Venous blood specimen / Unknown Venipuncture / Unknown 01/07/2025 4:03 PM EDT 01/07/2025 4:03 PM EDT May R Matthew ROBERTSONN LAB BLOOD ORDERABLES Final Result [facility] [address] [place] [address] * Anti-scleroderma antibody (01/07/2025 4:03 PM EDT) SCLERODERMA (SCL-70) (DAVID) ANTIBODY, IGG 0 0 - 40 AU/mL 01/11/2025 12:33 AM EDT [facility] ([place]) Blood Venous blood specimen / Unknown Venipuncture / Unknown 01/07/2025 4:03 PM EDT 01/07/2025 4:03 PM EDT Narrative [facility] ([place]) - 01/11/2025 12:33 AM [...] testing for centromere, RNA polymerase III and U3-TOOL SETTER APPRENTICE, PM/Scl, or Th/To antibodies. Performed By: [facility] [address] [place] [address] Interactive Media Designer: Martell Anton MD, PhD CLIA Number: [id number] May R Matthew APPLICATIONS SALES CONSULTANT LAB BLOOD ORDERABLES Final Result [facility] ([place]) [address] [place] [address] * Hepatitis B Core Total Antibody IgG,IgM (01/07/2025 4:03 PM EDT) Hepatitis B Core Total Antibody IgG,IgM Negative Negative 01/07/2025 8:30 PM EDT [facility] Blood Venous blood specimen / Unknown Venipuncture / Unknown 01/07/2025 4:03 PM EDT 01/07/2025 4:03 PM EDT May R Matthew APPLICATIONS SALES CONSULTANT LAB BLOOD ORDERABLES Final Result [facility] [address] [place] [address] * Quantiferon TB Gold Plus (01/07/2025 4:03 [...] handled as 10 IU/mL. May R Matthew APPLICATIONS SALES CONSULTANT LAB BLOOD ORDERABLES Final Result Performing Organization Address City/[facility]/ZIP Co de Phone Number [facility] [address] [place] [address] * Creatinine, Plasma (01/07/2025 4:03 PM EDT) [...] 01/07/2025 4:03 PM EDT May R Matthew APPLICATIONS SALES CONSULTANT LAB BLOOD ORDERABLES Final Result Performing Organization Address [facility] Co de Phone Number [facility] [address] [place] [address] * (ABNORMAL) CBC and Differential (01/07/2025 4:03 [...] ORDERABLES Final Result Performing Organization Address [facility]/ZIP Co de Phone Number [facility] [address] [place] [address] * Rheumatoid Factor, Plasma (01/07/2025 4:03 PM EDT) Rheumatoid Factor, Plasma <10 <14 IU/mL 01/07/2025 10:33 PM EDT [facility] Blood Venous blood specimen / Unknown Venipuncture / Unknown 01/07/2025 4:03 PM EDT 01/07/2025 4:03 PM EDT may Matthew COURTNEY LAB BLOOD ORDERABLES Final Result Performing Organization Address [facility]/ZIP Co de Phone Number [facility] [address] [place] [address] * (ABNORMAL) C3 Complement (01/07/2025 4:03 PM EDT) C3 Complement 174(H) 84 - 166 mg/dL 01/07/2025 10:33 PM EDT [facility] Blood Venous blood specimen / Unknown Venipuncture / Unknown 01/07/2025 4:03 PM EDT 01/07/2025 4:03 PM EDT may Matthew ROBERTSONN LAB BLOOD ORDERABLES Final Result Performing Organization Address [facility]/ZIP Co de Phone Number [facility] [address] [place] [address] * C4 Complement (01/07/2025 4:03 PM EDT) C4 Complement 29 13 - 36 mg/dL 01/07/2025 10:33 PM EDT [facility] Blood Venous blood specimen / Unknown Venipuncture / Unknown 01/07/2025 4:03 PM EDT 01/07/2025 4:03 PM EDT May Matthew ROBERTSONN LAB BLOOD ORDERABLES Final Result Performing Organization Address [facility] de Phone Number [facility] [address] [place] [address] * (ABNORMAL) C-Reactive Protein, Plasma (01/07/2025 4:03 PM EDT) [facility] CRP, Plasma 11.5(H) <=8.0 mg/L 01/07/2025 [...] ORDERABLES Final Result Performing Organization Address [facility] Co de Phone Number [facility] [address] [place] [address] * ANTI NUCLEAR AB (01/07/2025 4:03 PM EDT) Pathologist [facility] SILVIA INTERPRETIVE COMMENT See Note 01/10/2025 5:13 [...] not necessarily rule out SARD. Performed By: [facility] [address] [place] [address] Interactive Media Designer: Martell Anton MD, PhD CLIA Number: [id number] may R Matthew ROBERTSONN LAB BLOOD ORDERABLES Final Result [facility] ([place]) [address] [place] [address] * Hepatic Function Panel (01/07/2025 4:03 PM [...] 01/07/2025 4:03 PM EDT May R Matthew APPLICATIONS SALES CONSULTANT LAB BLOOD ORDERABLES Final Result Performing Organization Address City/[facility]/ZIP Co de Phone Number [facility] [address] [place] [address] * HIV 1 & 2 Antibody/Antigen Screen (05/30/2023 1:32 PM EST) [facility] HIV 1 & 2 Antibody/Antigen Screen Non Reactive Non Reactive 05/30/2023 3:32 PM EST [facility] Comment:Screening for HIV 1 & 2 antibodies, and P24 antigen is NONREACTIVE. No confirmatory testing is required. Blood Venous blood specimen / Unknown Venipuncture / Unknown 05/30/2023 1:32 PM EST 05/30/2023 1:34 PM EST May R Matthew APPLICATIONS SALES CONSULTANT LAB BLOOD ORDERABLES Final Result [facility] [address] [place] [address] from Last 3 Months or Most Recently Relevant to Health Maintenance Insurance CIG DENTAL CLAIMS [facility] Care Teams Case Briefer Relationship Specialty Start Date End Date Alma Gross APRN [address] [place] [address] PCP - General 05/08/23
--- OUTSIDE RECORDS SUMMARY | 2025-03-06 11:01 | XMS_ITS | Encounter Summary ---
Author Organization Healthcare Address [address] [place] [address] Care Team Providers Care Residency Director Name Role Phone Alma Gross BACK TENDER CYLINDER Primary Care Provider +1- [phone] Encounter Details Date Type Department Care Team (Late st Contact Info) Description 01/26/2025 Telephone [facility] [address], [address]nd [place] [address] Matthew, May R, BACK TENDER CYLINDER [address] [place] [address] Social History Tobacco Use Types [...] for her to see one of our teaching young's on the ILD team The referral that's in is still good until 2025, but it got cancelled, so she's wondering about getting that reinstated and getting that scheduled CB: [phone] * Telephone Encounter - Tracey Eisenberg - 01/26/2025 11:20 AM EDT Clinical Concern/Question Reason for Call: Pt is calling to follow up on referral for pulmonology. Please call. Best contact number: [phone] (mobile) Optimal time of day to reach [...] will receive notification of the communication/outcome via [facility]. documented in this encounter Plan of Treatment Upcoming Encounters Date Type Department Care Team (Late st Contact Info) Description 03/24/2025 9:30 AM EST Office Visit [facility] Medicine Specialties [address], [address] [place] [address] Matthew, May R, BACK TENDER CYLINDER [address] [place] [address] 03/27/2025 8:00 AM EST Office Visit [facility] Medicine Specialties [address], [address] [place] [address] Kirby Arthur MD [address] [place] [address] documented as of this encounter Visit Diagnoses [...] documented as of this encounter Care Teams Residency Director Relationship Specialty Start Date End Date Alma Gross APRN [address] [place] [address] PCP - General 05/08/23 documented as of this encounter
--- OUTSIDE RECORDS SUMMARY | 2025-03-06 11:01 | XMS_ITS | Encounter Summary ---
Author Organization [facility] Address [address] [place] [address] Care Team Providers Care Teacher Education Director Name Role Phone Alma Gross BARBECUE COOK Primary Care Provider +1- [phone] Reason for Referral * Imaging (Routine) - Pending Review Specialty Diagnoses / Procedures Referred By Joyce jones Referred To Contact Radiology Diagnoses Hypodense mass of liver Procedures US Abdomen Focused [facility] May, [address] [place] [address] Phone: tel: fax: Referral ID Status Reason Start Date Expiration Date V isits Requested Visits Authorized [id number] Pending Review 02/06/2025 08/08/2026 1 1 Encounter Details Date Type Department Care Team (Late st Contact Info) Description 02/06/2025 Orders Only [facility] [address], [address] [place] [address] May, [address] [place] [address] Hypodense mass of liver (Primary [...] Notes * Progress Notes - Matthew May, BARBECUE COOK - 02/06/2025 3:07 PM EDT Liver ultrasound ordered for hypodense lesion noted on chest CT. Message sent to patient. documented in this encounter Plan of Treatment Upcoming Encounters Date Type Department Care Team (Late st Contact Info) Description 03/24/2025 9:30 AM EST Office Visit [facility] [address], [address]nd [place] [address] Matthew May, [address] [place] [address] 03/27/2025 8:00 AM EST Office Visit [facility] Medicine Specialties [address], [address] [place] [address] Kirby Arthur MD [address] [place] [address] Scheduled Orders Name Type Priority Associated Diagnoses [...] documented as of this encounter Care Teams Teacher Education Director Relationship Specialty Start Date End Date Alma Gross APRN [address] [place] [address] PCP - General 05/08/23 documented as of this encounter
--- OUTSIDE RECORDS SUMMARY | 2025-03-06 11:01 | XMS_ITS | Encounter Summary ---
Author Organization Healthcare Address [address] [place] [address] Care Team Providers Care Director Of Enterprise Applications Name Role Phone Alma Gross SHERWIN Primary Care Provider +1- [phone] Encounter Details Date Type Department Care Team [...] Visit [facility] [address], [address]nd [place] [address] Matthew, May R, SUPERVISOR MODERN LANGUAGES [address] [place] [address] 03/27/2025 8:00 AM EST Office Visit [facility] [address], [address] [place] [address] Kirby Arthur MD [address] [place] [address] documented as of this encounter [...] documented as of this encounter Care Teams Director Of Enterprise Applications Relationship Specialty Start Date End Date Alma Gross APRN [address] [place] [address] PCP - General 05/08/23 documented as of this encounter
--- OUTSIDE RECORDS SUMMARY | 2025-03-06 11:01 | XMS_ITS | Encounter Summary ---
Author Organization [facility] Address [address] [place] [address] Care Team Providers Care Owner/Photographer Name Role Phone Alma Gross SHERWIN Primary Care Provider +1- [phone] Reason for Visit * Reason Onset Date Comments [facility] New Start 01/07/2025 Encounter Details Date Type Department Care Team (Late st Contact Info) Description 01/07/2025 Telephone [facility] [address], [address] [place] [address] Nayeli Izaguirre, PharmD [facility] New [...] at all 01/07/2025 2:27 PM EDT Ayush eWiss documented as of this encounter Miscellaneous Notes * Progress Notes - Nayeli Izaguirre, PharmD - 01/07/2025 3:47 PM EDT Per discussion with provider, Cos[facility]x has been ordered at the request of the provider for 28 day supply with 3 refills to [facility] pharmacy. documented in this encounter Plan of Treatment Upcoming Encounters Date Type Department Care Team (Late st Contact Info) Description 03/24/2025 9:30 AM EST Office Visit [facility] [address], [address] [place] [address] Cristel Castro, INSIDE SALES PROFESSIONAL [address] [place] [address] 03/27/2025 8:00 AM EST Office Visit [facility] Medicine Specialties [address], [address]nd [place] [address] Kirby Arthur MD [address] [facility] [address] [place] [address] documented as of this encounter Visit Diagnoses Diagnosis Psoriatic arthritis (CMS/[facility])- Primary Psoriatic arthropathy documented in this encounter Additional Health Concerns Assessment Noted Time PHQ-9 Depression Total Score: 0 01/08/20 25 2:27 PM EDT A fall risk assessment has been complete d for the patient 01/07/2025 2:27 PM EDT A Body Mass Index follow-up plan has been documented for the patient 01/07/2025 3:27 PM EDT documented as of this encounter Care Teams Owner/Photographer Relationship Specialty Start Date End Date Alma Gross APRN [address] [place] [address] PCP - General 05/08/23 documented as of this encounter
--- OUTSIDE RECORDS SUMMARY | 2025-03-06 11:01 | XMS_ITS | Encounter Summary ---
Author Organization [facility] Address [address] [place] [address] Care Team Providers Care Physical Therapy Coordinator Name Role Phone Alma Gross Cathy COURTNEY Primary Care Provider +1- [phone] Reason for Referral * Consultation (Routine) - Authorized Specialty Diagnoses / Procedures Referred By Joyce jones Referred To Contact Pulmonology Diagnoses Chronic obstructive pulmonary disease, unspecified COPD type (CMS/HCC) Shortness of breath Matthew May, DIAGNOSTIC TECHNOLOGIST [address] [place] [address] Phone: tel: fax: [facility] [address], [address] [place] [address] Phone: tel: fax: Referral ID Status Reason Start Date Expiration Date Visits Requested Visits Authorized [id number] Authorized Specialty Services Required 01/27/2025 07/29/2026 1 1 Encounter Details Date Type Department Care Team (Late st Contact Info) Description 01/27/2025 Orders Only [facility] Medicine Specialties [address], [address] [place] [address] Matthew May, DIAGNOSTIC TECHNOLOGIST [address] [place] [address] Shortness of breath (Primary Dx); Chronic obstructive [...] Description 03/24/2025 9:30 AM EST Office Visit [facility] [address], [address] [place] [address] Cristel Castro APRN [address] [place] [address] 03/27/2025 8:00 AM EST Office Visit [facility] Medicine Specialties [address], [address] [place] [address] Kirby Arthur MD [address] [place] [address] Scheduled Referrals Name Type Priority Associated Diagnoses [...] documented as of this encounter Care Teams Physical Therapy Coordinator Relationship Specialty Start Date End Date Alma Gross APRN [address] [place] [address] PCP - General 05/08/23 documented as of this encounter
--- OUTSIDE RECORDS SUMMARY | 2025-03-06 11:02 | XMS_ITS | Clinical Summary ---
Author Organization [facility] Address [address] [place] [address] Care Team Providers Care Circular Tank Cooper Name Role Phone Alma Gross APRN Primary Care Provider [phone] Allergies No known active allergies Medications albuterol [...] Office Visit [facility] [address] [place] [address] Jose Salmon MD Chronic bilateral low back pain without sciatica (Primary Dx); Spondylolisthesis of lumbar region; Chronic neck pain; History of fusion of cervical spine 12/09/2024 Travel 12/09/2024 Telephone [facility] [address] [place] [address] Jose Salmon MD 12/08/2024 Results Follow-Up [facility] [address] [address] Jose Salmon MD from Last [...] from Last 3 Months Insurance Care Teams Circular Tank Cooper Relationship Specialty Start Date End Date Alma Gross APRN [address] [facility] [address] [address] [place] [address] PCP - General Internal Medicine 07/01/24
--- OUTSIDE RECORDS SUMMARY | 2025-03-06 11:02 | XMS_ITS | Encounter Summary ---
Author Organization [facility] Address [address] [place] [address] Care Team Providers Care Solar Consultant Name Role Phone Alma Gross APRN Primary Care Provider + [phone] Encounter Details Date Type Department Care Team (Late st Contact Info) Description 12/08/2024 Results Follow-Up [facility] [address] [facility] [address] [phone] Jose Salmon MD [address] [facility] [address] [place] [address] Social History Tobacco Use Types Packs/Day Years [...] filedocumented in this encounter Care Teams Solar Consultant Relationship Specialty Start Date End Date Alma Gross APRN [address] [place] [address] [place] [address] PCP - General Internal Medicine 07/01/24 documented as of this encounter
[2025-03-06 11:03] VITALS: O2SAT 93
[2025-03-06 11:08] LABS: Adenovirus,PCR Not Detected (NotDetected); Chlamydophila Pneumoniae, PCR Not Detected (NotDetected); Coronavirus 19, PCR Not Detected (NotDetected); Coronovirus HKU1,PCR Not Detected (NotDetected); Influenza A, PCR Not Detected (NotDetected); Influenza AH1, 2009 Not Detected (NotDetected); Influenza AH1, PCR Not Detected (NotDetected); Influenza AH3,PCR Not Detected (NotDetected); Influenza B, PCR Not Detected (NotDetected); Mycoplasma Pneumoniae, PCR Not Detected (NotDetected); Parainfluenza 1, PCR Not Detected (NotDetected); Parainfluenza 2, PCR Not Detected (NotDetected); Parainfluenza 3, PCR Not Detected (NotDetected); Parainfluenza 4, PCR Not Detected (NotDetected)
[2025-03-06 11:15] LABS: Hematocrit 39.9 % (37.0-47.0); Hemoglobin 13.8 g/dL (12.2-16.2); Immature Granulocytes % 0.4 %; Mean Corpuscular HGB Conc 34.6 g/dL (31.8-35.4); Mean Corpuscular Hemoglobin 31.9 pg (27.0-31.2); Mean Corpuscular Volume 92.4 fl (81-99); Nucleated Red Blood Cells % 0 %; Platelet Count 231 K/mm3 (142-424); Red Blood Count 4.32 M/mm3 (4.20-5.40); Red Cell Distribution Width-SD 45.1 fL; White Blood Count 10.0 K/mm3 (4.8-10.8)
[2025-03-06 11:16] LABS: VBG HCO3 25.4 mmol/L (23-30); VBG PCO2 37.5 mmol/L (35-51); VBG PH 7.45 mmol/L (7.31-7.41); VBG PO2 102.6 mmol/L (28-40)
[2025-03-06 11:18] LABS: Lactate Venous 4.4 mmol/L (0.4-2.0)
[2025-03-06] MEDS: ASPIRIN 81MG CHEWABLE TABLET 324 MG PO (11:20)
[2025-03-06 11:31] VITALS: BP 139/95; PULSE 103; RESP 14; O2SAT 92
[2025-03-06] MEDS: CEFTRIAXONE 1 GM 1 GM in 0.9 % SODIUM CHLORIDE 50 ML IV (11:44)
--- NOTE | 2025-03-06 11:46 | [facility].EDCP ---
Discharge Plan Disposition Patient Disposition: Home, Self-Care Prescriptions Prescriptions: No Action metoclopramide HCl 10 mg tablet 10 mg PO .q8 PRN (Reason: GERD) diazepam 2 mg tablet 2 mg PO .daily PRN (Reason: anxiety ) Qty: 30 0RF cholecalciferol (vitamin D3) 125 mcg (5,000 unit) capsule 250 mcg PO DAILY duloxetine 20 mg capsule,delayed release(DR/EC) 20 mg PO DAILY Qty: 30 2RF trazodone 50 mg tablet 50 mg PO DIRECTED PRN (Reason: Sleep) famotidine 20 mg tablet 20 mg PO BID PRN (Reason: GERD) Patient Comments: TAKE ONE TABLET BY MOUTH TWICE DAILY baclofen 10 mg tablet 10 mg PO BID PRN (Reason: muscle spasm) 30 Days Qty: 60 1RF Cosentyx Pen 150 mg/mL pen injector 150 mg SQ QWEEK metoprolol succinate 100 mg tablet extended release 24 hr 100 mg PO DAILY Qty: 30 1RF fexofenadine 180 mg tablet 180 mg PO DAILY Qty: 30 5RF irbesartan 75 mg tablet 75 mg PO DAILY Qty: 30 0RF albuterol sulfate 1.25 mg/3 mL solution for nebulization See Rx Instructions .ROUTE .COMPLEX Qty: 90 2RF Dose Instruction: INHALE THE CONTENTS OF 1 VIAL VIA NEBULIZER EVERY 8 HOURS NEEDED Rx Instructions: INHALE THE CONTENTS OF 1 VIAL VIA NEBULIZER EVERY 8 HOURS NEEDED diclofenac sodium 50 mg tablet,delayed release (DR/EC) 50 mg PO TID Qty: 90 2RF fluticasone propionate 50 mcg/actuation spray,suspension 2 spray intranasal DAILY PRN (Reason: Breathing Problems) Qty: 16 2RF Trelegy Ellipta 200-62.5-25 mcg blister with device See Rx Instructions .ROUTE .COMPLEX Qty: 60 2RF Dose Instruction: INHALE 1 PUFF BY MOUTH EVERY DAY --RINSE MOUTH AFTER USE-- Rx Instructions: INHALE 1 PUFF BY MOUTH EVERY DAY --RINSE MOUTH AFTER USE-- hydrochlorothiazide 25 mg tablet 25 mg PO DAILY Qty: 30 2RF meclizine 25 mg tablet 25 mg PO TID PRN (Reason: dizziness) Qty: 90 0RF tramadol 50 mg tablet 50 mg PO Q6H PRN (Reason: pain) Qty: 30 0RF ipratropium-albuterol 0.5 mg-3 mg(2.5 mg base)/3 mL solution for nebulization See Rx Instructions .ROUTE .COMPLEX Qty: 180 1RF Dose Instruction: INHALE THE CONTENTS OF 1 VIAL VIA NEBULIZER FOUR TIMES DAILY NEEDED FOR SHORTNESS OF BREATH OR wheezing Rx Instructions: INHALE THE CONTENTS OF 1 VIAL VIA NEBULIZER FOUR TIMES DAILY NEEDED FOR SHORTNESS OF BREATH OR wheezing albuterol sulfate 90 mcg/actuation HFA aerosol inhaler See Rx Instructions .ROUTE .COMPLEX Qty: 8.5 1RF Dose Instruction: INHALE TWO PUFFS BY MOUTH EVERY 4 TO 6 HOURS NEEDED FOR breathing problems Rx Instructions: INHALE TWO PUFFS BY MOUTH EVERY 4 TO 6 HOURS NEEDED FOR breathing problems prednisone 20 mg tablet 20 mg PO BID 7 Days Qty: 14 0RF doxycycline hyclate 100 mg capsule 100 mg PO BID 10 Days Qty: 20 0RF Referrals Follow up/Referrals: Alma Gross APRN [Primary Care Provider, Medical] - See instructions Activity Restrictions/Add. Instructions Additional Instructions/Restrictions: At this time it was felt you are safe to be discharged home. If new or worsening symptoms please do not hesitate to return the emergency department. Please continue to take your medications as prescribed by your family doctor. Please follow-up with your family doctor Sunday or Sunday morning to make sure things are headed in the right direction. If you get worse over the weekend please not hesitate to return to the emergency department. Clinical Impressions Clinical Impression: COPD (chronic obstructive pulmonary disease), Rhinovirus Print Language Print Language: [place] Discharge ED Provider: Deny Canales HPI General Chief Complaint: Shortness of Breath/Dyspnea Stated Complaint: low O2 stats Time Seen by Provider: 03/06/25 11:01 Mode of Arrival: Ambulatory Source of Information: Patient Description of Symptoms (Recalled from ER Triage Doc. by RN): PATIENT PRESENTS TO ED FROM OFFICE FOR SHORTNESS OF BREATH. REPORTS THIS HAS BEEN GOING ON SINCE SUNDAY WITH A PRODUCTIVE COUGH, 88% ON ROOM AIR. WEARS 2LNC NEEDED AT NIGHT, PLACED ON NC HERE. STATES HER SPUTUM IS YELLOWISH IN COLOR. History of Present Illness HPI narrative: Patient is 59-year-old female with past medical history of COPD on nocturnal O2, current smoker, hypertension who presents emergency department for evaluation of shortness of breath and cough. Patient has had productive cough and shortness of breath since Sunday. Patient was seen in the emergency department yesterday where diagnostics were ultimately largely nonactionable patient underwent supportive management with symptomatic treatment and was discharged with antibiotics in stable condition. She presented to PCP for follow-up today where they did not like the way she was breathing and referred her here for continued evaluation. Patient states that her body does feel worse than yesterday, she has chest pain only when she coughs does not have any chest pain at rest. No other acute complaints at this time. Please note that above description of symptoms, in this electronic medical record under categorization of recalled from ER triage doctor by RN are reflective of an initial nursing assessment, however, is not reflective of my full history and physical exam that was personally taken and clarified. Consequentially, this preceding description of symptoms, which may include the patient's categorized chief complaint in the EMR, do not reflect my personal clinical impression, and the ultimate description of history of present illness and patient stated complaints should be deferred to this section of the note. Unless stated otherwise or congruent with this section of the note, additional signs, symptoms, or incongruence should be interpreted as inaccurate with my clinical impression. Related Data Home Medications ?Medication ?Instructions ?Recorded ?Confirmed trazodone 50 mg tablet 50 mg PO DIRECTED PRN Sleep 01/24/23 03/06/25 metoclopramide HCl 10 mg tablet 10 mg PO .q8 PRN GERD 06/20/23 03/06/25 famotidine 20 mg tablet 20 mg PO BID PRN GERD 05/19/24 03/06/25 cholecalciferol (vitamin D3) 125 250 mcg PO DAILY 10/15/24 03/06/25 mcg (5,000 unit) capsule secukinumab 150 mg/mL subcutaneous 150 mg SQ QWEEK 01/12/25 03/06/25 pen injector (Cosentyx Pen) Previous Rx's ?Medication ?Instructions ?Recorded albuterol sulfate 1.25 mg/3 mL See Rx Instructions .Route 02/22/24 solution for nebulization .COMPLEX #90 mL diclofenac sodium 50 mg 50 mg PO TID #90 tabs 08/08/24 tablet,delayed release fluticasone fur. 200 mcg-umeclid See Rx Instructions .Route 08/08/24 62.5 mcg-vilant 25 mcg .COMPLEX #60 blisters inhalat.powder (Trelegy Ellipta) fluticasone propionate 50 2 spray intranasal DAILY PRN 08/08/24 mcg/actuation nasal Breathing Problems #16 grams spray,suspension hydrochlorothiazide 25 mg tablet 25 mg PO DAILY #30 tabs 08/08/24 meclizine 25 mg tablet 25 mg PO TID PRN dizziness #90 tabs 08/08/24 tramadol 50 mg tablet 50 mg PO Q6H PRN pain #30 tabs 08/08/24 diazepam 2 mg tablet 2 mg PO .daily PRN anxiety #30 09/23/24 tabs duloxetine 20 mg capsule,delayed 20 mg PO DAILY #30 caps 12/05/24 release baclofen 10 mg tablet 10 mg PO BID PRN muscle spasm 30 12/22/24 days #60 tabs metoprolol succinate 100 mg 100 mg PO DAILY #30 tabs 02/06/25 tablet,extended release 24 hr fexofenadine 180 mg tablet 180 mg PO DAILY #30 tabs 02/20/25 irbesartan 75 mg tablet 75 mg PO DAILY #30 tabs 02/20/25 albuterol sulfate 90 mcg/actuation See Rx Instructions .Route 02/23/25 aerosol inhaler .COMPLEX #8.5 grams ipratropium 0.5 mg-albuterol 3 mg See Rx Instructions .Route 02/23/25 (2.5 mg base)/3 mL nebulization .COMPLEX #180 mL soln doxycycline hyclate 100 mg capsule 100 mg PO BID 10 days #20 caps 03/05/25 prednisone 20 mg tablet 20 mg PO BID 7 days #14 tabs 03/05/25 Allergies Allergy/AdvReac Type Severity Reaction Status Date / Time No Known Allergies Allergy Verified 03/06/25 10:28 [facility] Disclaimer: The information contained in this section may have been updated after the patient was seen, as this information can be updated by other users. Medical History (Updated 03/06/25 @ 13:12 by Deny Canales MD) Sinusitis COVID-19 virus infection Low back pain with sciatica Cystitis Torticollis, acute Exposure to COVID-19 virus Radial head fracture Strain of lumbar region Chest pain URI (upper respiratory infection) Bilateral flank pain Maxillary sinusitis, acute Thrush Bronchitis Knee pain, right Strain of Achilles tendon Right ankle injury Decreased ROM of ankle Tooth abscess Injury of right Achilles tendon Pain, dental Sinusitis Acute bronchitis Tobacco use Acute recurrent maxillary sinusitis Low back pain Tobacco abuse counseling Tobacco abuse Positive antinuclear antibody History of psoriatic arthritis Smoking greater than 30 pack years Fibrosis of lung COPD mixed type Asthma-chronic obstructive pulmonary disease overlap syndrome Dizziness Fatigue Grade I diastolic dysfunction Achilles rupture, right Herniated disc Allergic rhinitis Arthritis COPD (chronic obstructive pulmonary disease) Asthma, severe persistent Hypertension Surgical History History of carpal tunnel release Hx of cholecystectomy History of tubal ligation Family History Father Cancer Mother Hypertension Cancer Son Asthma Social History Smoking Status: Current every day smoker tobacco type: cigarettes packs per day: 1 second hand exposure: Yes alcohol intake: current alcohol intake frequency: holidays/special occasions only substance use type: denies use and other current occupational status: disabled Travel in the last 8 weeks?: None household members: other housing: house caffeine: Yes Have you lived/traveled outside US in past 30 days?: No Contact w/someone who lives/traveled outside US past 30 days?: No Exposure to someone with infectious disease in past 14 days?: No Do you have a fever (greater than 100.4 F or 38 C)?: No Have you tested positive for COVID-19?: No Exposed to someone with COVID-19 in past 14 days?: No Do you have a sore throat?: No Do you have a cough?: No Do you have any weakness?: No Do you have any diarrhea?: No Are you experiencing any unusual bleeding?: No Do you have any muscle aches/pain?: No Do you have any abdominal pain?: No Are you experiencing loss of taste or smell?: No Other Medical History Have you received the Flu Vaccine for this season: No Have you received the Pneumonia Vaccine: Yes ROS Obtained: Yes Systems reviewed as appropriate & no additional complaints except as documented Physical Exam General General appearance: alert and in no apparent distress Head Head exam: atraumatic and normocephalic Eye Eye exam: Present PERRL and EOMI ENT ENT exam: Present mucous membranes moist Neck Neck exam: Present normal inspection Chest Chest inspection: Present normal inspection and symmetric chest wall rise Respiratory Respiratory exam: Present wheezes (Left greater than right) and accessory muscle use; Absent normal lung sounds bilaterally or respiratory distress Cardiovascular Cardiovascular exam: Present normal rhythm and tachycardia Abdominal Exam Abdominal exam: Present soft; Absent tenderness Extremities Exam Extremities exam: Present normal inspection and other (No edema) Neurological Exam Neurological exam: Present alert Psychiatric Psychiatric exam: Present normal affect Skin Skin exam: Present warm and dry HEART Score HEART Score HEART Score assessment performed?: Yes History (anamnesis): Slightly suspicious ECG: Normal Age: 45-65 years Risk factors: 3 or more risk factors Troponin: </= normal limit HEART Score: 3 Critical Care Critical Care Time Critical Care Time: No Medical Decision Making [place] Inquiry Pt receiving controlled substance: No Vital Signs Vital Signs: 03/06/25 10:51 03/06/25 10:57 03/06/25 10:57 Temperature 98.2 F 98.2 F Temperature Source Oral Pulse Rate 106 H 118 H Pulse Rate [Right] 118 H Respiratory Rate 22 22 Blood Pressure 155/69 H 155/69 H Blood Pressure [Right Arm] 155/69 H Blood Pressure Mean 100 Blood Pressure Mean [Right Arm] 97 02 Sat by Pulse Oximetry 92 L 88 L 88 L Oxygen Delivery Method Nasal Cannula Room Air Room Air Oxygen Flow Rate (LPM) 2 03/06/25 11:03 03/06/25 11:05 03/06/25 11:31 Temperature Temperature Source Pulse Rate 103 H Pulse Rate [Right] Respiratory Rate 14 Blood Pressure 139/95 H Blood Pressure [Right Arm] Blood Pressure Mean 108 Blood Pressure Mean [Right Arm] 02 Sat by Pulse Oximetry 93 L 92 L Oxygen Delivery Method Nasal Cannula Nasal Cannula Oxygen Flow Rate (LPM) 2 2 Lab Data Labs: Lab Results 03/06/25 11:01: VBG pH 7.45 H, VBG pCO2 37.5, VBG pO2 102.6 H, VBG HCO3 25.4, VBG Total CO2 26.5, VBG O2 Saturation 97.9 H, VBG Base Excess 1.3, VBG Lactic Acid 4.4 H 03/06/25 11:04: WBC 10.0, RBC 4.32, Hgb 13.8, Hct 39.9, MCV 92.4, MCH 31.9 H, MCHC 34.6, RDW 13.2, Plt Count 231, MPV 10.8 H, Neut % (Auto) 88.7 H, Lymph % (Auto) 6.5 L, [place] % (Auto) 4.3, Eos % (Auto) 0.0 L, Baso % (Auto) 0.1, Neut # (Auto) 8.9 H, Lymph # (Auto) 0.7, [place] # (Auto) 0.4, Eos # (Auto) 0.0, Baso # (Auto) 0.0, Sodium 137, Potassium 3.6, Chloride 101, Carbon Dioxide 24, Anion Gap 15.6 H, BUN 11 D, Creatinine 0.70, Estimated Creat Clear 96, Estimated GFR 85, Est GFR ( Amer) 103, Glucose 131 H D, Calcium 9.4, Total Bilirubin 0.5, AST 32, ALT 39 D, Alkaline Phosphatase 112, Troponin I < 0.01, NT-Pro-B Natriuret Pep 34.8, Total Protein 6.8, Albumin 4.1, Globulin 2.7, Albumin/Globulin Ratio 1.5 03/06/25 11:05: Chlamy pneumoniae PCR Not detected, Adenovirus (PCR) Not detected, B. pertussis DNA (PCR) Not detected, Coronavirus OC43 (PCR) Not detected, Coronavirus HKU1 (PCR) Not detected, Coronavirus 229E (PCR) Not detected, SARS-CoV-2 (PCR) Not detected, Coronavirus NL63 (PCR) Not detected, Human Metapneumovir PCR Not detected, Influenza A (H1) PCR Not detected, Influ A (H1N1/09) PCR Not detected, Influenza A (H3) PCR Not detected, Influenza Type A (PCR) Not detected, Influenza Type B (PCR) Not detected, M. pneumoniae (PCR) Not detected, Parainfluenza 1 (PCR) Not detected, Parainfluenza 2 (PCR) Not detected, Parainfluenza 3 (PCR) Not detected, Parainfluenza 4 (PCR) Not detected, RSV (PCR) Not detected, Entero/Rhino (PCR) Detected A 03/06/25 11:04 03/06/25 11:04 Response Orders (Tests/Meds): ED MEDICATIONS Discontinued Medications Generic Name Dose Route Start Last Admin Trade Name Freq PRN Reason Stop Dose Admin Albuterol/Ipratropium 9 ml 03/06/25 11:28 03/06/25 11:48 Ipratropium/Albuterol 3 Ml Neb IH 03/06/25 11:29 9 ml ONCE ONE Administration Aspirin 324 mg 03/06/25 11:01 03/06/25 11:20 Aspirin 81mg Chewable Tablet PO 03/06/25 11:02 324 mg ONCE ONE Administration Ceftriaxone Sodium 1 gm/ 50 mls @ 100 mls/hr 03/06/25 11:28 03/06/25 12:32 Sodium Chloride IV 03/06/25 11:57 Infused ONCE ONE Infusion Magnesium Sulfate 2 gm in 50 mls @ 50 mls/hr 03/06/25 11:27 03/06/25 12:33 Magnesium Sulfate 2gm/50ml Premix IV 03/06/25 12:26 50 mls/hr ONCE ONE Administration Lactated Ringer's 500 mls @ 999 mls/hr 03/06/25 11:29 03/06/25 12:33 Lactated Ringer's 500ml IV 03/06/25 11:59 999 mls/hr .Q31M ONE Administration ORDERS Category Date Time Status CXR 2 view (NOT portable) [XR chest 2V] Stat Exams 03/06/25 11:01 Taken BNP [NT Pro Brain Natriuretic Pep.] Stat Lab 03/06/25 11:04 Completed CBC w/Auto Diff [Complete Blood Count Auto Diff] Stat Lab 03/06/25 11:04 Completed CMP [Comprehensive Metabolic Panel] Stat Lab 03/06/25 11:04 Completed Full Resp Panel w/COVID ([facility]) Routine Lab 03/06/25 11:05 Completed Trop I [Troponin I] Stat Lab 03/06/25 11:04 Completed Troponin I Q3H Lab 03/06/25 14:15 Ordered Troponin I Q3H Lab 03/06/25 17:15 Ordered Blood Culture Stat Micro 03/06/25 11:16 Received VBG [Venous Blood Gas] Stat RT 03/06/25 11:01 Completed ECG Data Tracing #1: ECG Narrative: Independently interpreted by me rate is 100, rhythm is regular, axis is normal, no ST elevation in anatomical contiguous leads, QTc 399. MDM Narrative Medical Decision Narrative: In summary patient is 59-year-old female with past medical history of scrota above who presents emergency department for evaluation of shortness of breath and cough is a repeat evaluation. Patient is hemodynamically stable and nontoxic-appearing upon arrival, afebrile, saturating in the mid 90s on 2 L nasal cannula which she does not normally wear during the day, mild tachycardia. Differential diagnosis includes worsening COPD exacerbation, secondary to viral etiology versus bacterial pneumonia. Less likely atypical ACS given that she only has pain with cough. She does not appear overtly volume overloaded her legs do not have pitting edema although she does take diuretics at baseline. She may be intravascularly deplete. Given this in totality workup will be conducted with hematologic labs two-view chest x-ray, EKG, serial troponins. No concern for pulmonary embolism given that she had CTA performed yesterday and her symptoms are continuous. She has evidence of emphysema and prior granulomatous disease in the lung. Initial interventions include DuoNebs x 3, she has already taken steroids this morning and doxycycline so those will be deferred, antibiotics will be broadened with ceftriaxone until we have performed appropriate diagnostic workup. Sepsis bolus fluids were considered but given patient's history of volume overload will be deferred and gentle crystalloid resuscitation will be conducted with 500 cc of Ringer's. Initial workup reviewed by me no significant leukocytosis no transfusable anemia, essentially normal VBG she has a lactate of 4.4 but recently had a DuoNeb prior to arrival I suspect that this is a type B acidosis given that her pH is not acidotic no critical electrolyte abnormality no YEE, no anion gap greater than 16 initial troponin undetectably low and patient only has pain when she coughs for which I suspect costochondral strain. Comprehensive viral respiratory panel positive for rhino enterovirus chest x-ray informally interpreted by me, no dense lobar opacities or large pneumothorax probably consistent with viral pneumonia. Upon repeat evaluation patient was feeling better, significantly improved respiratory status and air movement. Patient has breathing machine at home with medication and is already being treated with doxycycline for possible superimposed atypical coverage and steroids. Given this patient was ambulatory at bedside and her tachycardia is explained by her significant beta agonist administration prior to arrival and during her stay here, I do not suspect that she is critically ill or has sepsis given this patient is appropriate for outpatient management at this time was given multiple return precautions and verbalized understanding and is comfortable with this plan and will continue to follow-up on an outpatient basis.
[2025-03-06] MEDS: IPRATROPIUM/ALBUTEROL 3 ML NEB 9 ML IH (11:48)
[2025-03-06 12:02] LABS: Alanine Aminotransferase 39 U/L (12-78); Albumin Level 4.1 g/dl (3.5-5.0); Albumin/Globulin Ratio 1.5 (1.1-1.8); Alkaline Phosphatase 112 U/L (38-126); Anion Gap 15.6 mEq/L (5-15); Aspartate Amino Transferase 32 U/L (14-36); Bilirubin,Total 0.5 mg/dl (0.2-1.3); Blood Urea Nitrogen 11 mg/dl (7-17); Calcium 9.4 mg/dl (8.4-10.2); Carbon Dioxide 24 mmol/L (22.0-30.0); Chloride 101 mmol/L (98-107); Creatinine Clearance Estimated 96 mL/min (50-200); Creatinine,Serum 0.70 mg/dl (0.52-1.04); Estimated Glomerular Filt Rate 85 ml/min (>60); GFR (African American) 103 ML/MIN (>60); Globulin 2.7 g/dL (1.3-3.2); Glucose 131 mg/dl (74-100); Potassium 3.6 mmoL/L (3.5-5.1); Sodium 137 mmol/L (136-145); Total Protein,Serum 6.8 g/dl (6.3-8.2)
[2025-03-06 12:13] LABS: NT Pro Brain Natriuretic Pep. 34.8 pg/mL (0-125)
[2025-03-06 12:15] LABS: Troponin I < 0.01 ng/ml (0.00-0.034)
[2025-03-06] MEDS: RINGERS SOLUTION,LACTATED 500 ML 999 ML IV (12:33)
[2025-03-06] MEDS: MAGNESIUM SULFATE IN WATER 2 GM/50 ML PIGGYBACK IV (12:33)
[2025-03-06 13:22] VITALS: BP 141/80; PULSE 108; RESP 20; TEMP 36.9; O2SAT 96
[2025-03-06 15:18] LABS: Reflex Lactic Add Lactic Reflex
== END 2025-03-06 13:35 | disposition home or self-care (01) ==
PROVIDERS: Emergency Provider Emergency Medicine; PCP Nurse Practitioner Family
DX: J44.9 Chronic obstructive pulmonary disease, unspecified (principal); B34.8 Other viral infections of unspecified site; F17.210 Nicotine dependence, cigarettes, uncomplicated
CPT/HCPCS: 0223U; 71046; 80053; 82803; 83880; 84484; 85025; 87040; 93005; 96365; 96367; 96375; 99285; J0696; J3475; J7120

== ENCOUNTER 2025-03-23 12:16 | Outpatient (CLI) | payer OTHER, SELFPAY ==
--- OUTSIDE RECORDS SUMMARY | 2025-02-06 12:25 | XMS_ITS | Encounter Summary ---
Author Organization [facility] Address [address] [place] [address] Care Team Providers Care Airport Ramp Agent Name Role Phone Alma Gross SHERWIN Primary Care Provider +1- [phone] Reason for Referral * Imaging (Routine) - Closed Specialty Diagnoses / Procedures Referred By Joyce jones Referred To Contact Radiology Diagnoses Shortness of breath Procedures CT Chest wo IV Contrast May, [address] [address] Phone: tel: fax: Referral ID Status Reason Start Date Expiration Date Visits Re quested Visits Authorized [id number] Closed 01/07/2025 07/09/2026 1 1 Reason for Visit * Imaging (Routine) - Closed Specialty Diagnoses / Procedures Referred By Joyce jones Referred To Contact Radiology Diagnoses Shortness of breath Procedures CT Chest wo IV Contrast May, [address] [facility] [address] [place] [address] Phone: tel: fax: Referral ID Status Reason Start Date Expiration Date Visits Re quested Visits Authorized [id number] Closed 01/07/2025 07/09/2026 1 1 Encounter Details Date Type Department Care Team (Latest Contact Info) Description 02/06/2025 1:25 PM EDT - 02/06/2025 11:59 PM EDT Hospital Encounter [facility] [address] [place] [address] Shortness of breath Discharge Disposition: Home or Self Care Social [...] HOURS NEEDED --SHAKE WELL BEFORE USE-- 05/04/2023 baclofen (Lioresal) 10 MG tablet 12/05/2024 cetirizine (ZyrTEC) 10 MG tablet Take 1 [...] mouth 3 (three) times a day. 05/04/2023 DULoxetine (Cymbalta) [address] capsule Take 1 capsule by mouth daily. Do not crush or chew. famotidine (Pepcid) 20 MG tabletIndications :Gastroesophageal reflux disease, unspecified whether esophagitis present Take 1 tablet by mouth 2 times a day. 180 tablet 2 01/07/2025 fluticasone (Flonase) 50 MCG/ACT nasal spray Administer [...] MG tablet 1 tablet (10 mg). 06/20/2023 nicotine (Nicoderm CQ) 14 MG/24HR patchIndications: Encounter [...] while wearing patch. 14 patch 1 04/09/2024 ondansetron (Zofran) 4 MG tablet Take 1 tablet (4 mg) by mouth. 06/05/2022 predniSONE (Deltasone) 5 MG tabletIndications :Psoriatic arthritis (CMS/HCC) 3 tablets daily x 1 week, 2 tablets daily x1 week then one tablet daily 49 tablet 04/09/2024 Secukinumab (Cosentyx Sensoready Pen) 150 MG/ML solution auto-injectorIndi cations:Psoriatic arthritis (CMS/HCC) Inject 150 mg under the skin every 28 days. 1 mL 3 01/09/2025 Secukinumab (Cosentyx Sensoready Pen) 150 MG/ML solution auto-injectorIndi cations:Psoriatic arthritis (CMS/HCC) Inject 150 mg (1 pen) under the skin at weeks 0, 1, 2, 3, and 4 followed by 150 mg every 4 weeks. 5 mL 01/09/2025 traZODone (Desyrel) 50 MG tablet Take 1 tablet (50 mg) by mouth at night if needed for sleep. Trelegy Ellipta 200-62.5-25 MCG/ACT aerosol powder Inhale 1 puff. 06/16/2023 varenicline (Chantix) 1 MG tablet TAKE 1 TABLET BY MOUTH TWICE DAILY AFTER COMPLETION OF STARTER PACK 01/28/2024 traMADol (Ultram) 50 MG tablet 1 tablet (50 mg). 06/19/2023 documented as of this encounter Plan of Treatment Upcoming Encounters Date Type Department Care Team (Late st Contact Info) Description 03/24/2025 9:30 AM EST Office Visit [facility] Medicine Specialties [address] [place] [address] Cristel Castro APRN [address] [facility] [address] [place] [address] 03/24/2025 10:00 AM EST Ancillary Procedure [facility] Medicine Specialties [address], [facility] [place] [address] 03/27/2025 8:00 AM EST Office Visit [facility] Medicine [place] [address], [facility] [place] [address] Kirby Arthur MD [address] [facility] [address] [place] [address] documented as of this encounter Procedures Procedure Name Priority Date/Time Associated Diagnosis Comments CT CHEST WO IV CONTRAST Routine 02/06/2025 1:58 PM EDT Shortness of breath documented in this encounter Results * CT Chest wo [...] Teddy Suarez MD on 02/06/2025 2:52 PM May Matthew BRIDGE ENGINEER IMG CT PROCEDURES Final Res ult documented in this encounter Visit Diagnoses Diagnosis Shortness of breath documented in this encounter Additional Health Concerns Assessment Noted Time PHQ-9 Depression Total Score: 0 01/08/20 25 2:27 PM EDT A fall risk assessment has been complete d for the patient 01/07/2025 2:27 PM EDT A Body Mass Index follow-up plan has been documented for the patient 01/07/2025 3:27 PM EDT documented as of this encounter Care Teams Airport Ramp Agent Relationship Specialty Start Date End Date Alma Gross APRN [facility] [place] [address] PCP - General 05/08/23 documented as of this encounter
--- OUTSIDE RECORDS SUMMARY | 2025-03-23 12:18 | XMS_ITS | Encounter Summary ---
Author Organization Healthcare Address [address] [place] [address] Care Team Providers Care [facility] Owner Name Role Phone Alma Gross SHERWIN Primary Care Provider [phone]- [phone] Encounter Details Date Type Department Care Team [...] Description 03/24/2025 9:30 AM EST Office Visit [facility] [address] [place] [address] Matthew, May R, SOCIAL WORKER PALLIATIVE CARE [address] [place] [address] 03/24/2025 10:00 AM EST Ancillary Procedure [facility] Medicine Specialties [address] [place] [address] 03/27/2025 8:00 AM EST Office Visit [facility] [address] [place] [address] Kirby Arthur MD [address] [place] [address] documented as of this encounter [...] documented as of this encounter Care Teams [facility] Owner Relationship Specialty Start Date End Date Alma Gross, SHERWIN [address] [place] [address] PCP - General 05/08/23 documented as of this encounter
--- OUTSIDE RECORDS SUMMARY | 2025-03-23 12:18 | XMS_ITS | Encounter Summary ---
Author Organization Healthcare Address [address] [place] [address] Care Team Providers Care Knitted Garment Finisher Name Role Phone Alma Gross SHERWIN Primary Care Provider +1- [phone] Encounter Details Date Type Department Care Team (Latest Contact Info) Description 03/22/2025 Travel Social History Tobacco Use Types Packs/Day [...] Visit [facility] [address] [place] [address] Matthew, May R, PHARMACY TECHNICIAN [address] [place] [address] 03/24/2025 10:00 AM EST Ancillary Procedure [facility] Medicine Specialties [address] [place] [address] 03/27/2025 8:00 AM EST Office Visit [facility] Medicine Specialties [address] [place] [address] Kirby Arthur MD [address] [place] [address] documented as of this encounter [...] documented as of this encounter Care Teams Knitted Garment Finisher Relationship Specialty Start Date End Date Alma Gross, SHERWIN [address] [place] [address] PCP - General 05/08/23 documented as of this encounter
--- OUTSIDE RECORDS SUMMARY | 2025-03-23 12:18 | XMS_ITS | Encounter Summary ---
Author Organization [facility] Address [address] [place] [address] Care Team Providers Care [facility] Name Role Phone Alma Gross Cathy COURTNEY Primary Care Provider +1- [phone] Reason for Referral * Consultation (Routine) - Authorized Specialty Diagnoses / Procedures Referred By Joyce jones Referred To Contact Pulmonology Diagnoses Chronic obstructive pulmonary disease, unspecified COPD type (CMS/HCC) Shortness of breath Matthew May, [address] [place] [address] Phone: tel: fax: [facility] [address] [place] [address] Phone: tel: fax: Referral ID Status Reason Start Date Expiration Date Visits Requested Visits Authorized [id number] Authorized Specialty Services Required 01/27/2025 07/29/2026 1 1 Encounter Details Date Type Department Care Team (Late st Contact Info) Description 01/27/2025 Orders Only [facility] [address] [place] [address] Matthew May, [employer] ARCHITECT [address] [place] [address] Shortness of breath (Primary Dx); Chronic obstructive [...] Description 03/24/2025 9:30 AM EST Office Visit [facility] Medicine Specialties [address] [place] [address] Cristel Castro R, SHERWIN [address] [place] [address] 03/24/2025 10:00 AM EST Ancillary Procedure [facility] [address] [place] [address] 03/27/2025 8:00 AM EST Office Visit [facility]ties [address] [place] [address] Kirby Arthur MD [address] [place] [address] Scheduled Referrals Name Type Priority Associated Diagnoses [...] documented as of this encounter Care Teams Di[facility] Drier Relationship Specialty Start Date End Date Alma Gross APRN [address] [place] [address] PCP - General 05/08/23 documented as of this encounter
--- OUTSIDE RECORDS SUMMARY | 2025-03-23 12:18 | XMS_ITS | Encounter Summary ---
Author Organization [facility] Address [address] [place] [address] Care Team Providers Care Budget Coordinator Name Role Phone Alma Gross SHERWIN Primary Care Provider +1- [phone] Reason for Referral * Imaging (Routine) - Authorized Specialty Diagnoses / Procedures Referred By Joyce jones Referred To Contact Cardiology Diagnoses Shortness of breath Procedures Echo, Adult Transthoracic Complete May, [address] [place] [address] Phone: tel: fax: Referral ID Status Reason Start Date Expiration Date Visits Requested Visits Authorized [id number] Authorized Perform Procedure 01/27/2025 07/29/2026 1 1 Encounter Details Date Type Department Care Team (Late st Contact Info) Description 01/27/2025 Telephone [facility] Medicine Specialties [address], [address] [place] [address] Matthewmay, [address] [place] [address] Social History Tobacco Use Types [...] Notes * Telephone Encounter - Matthew, May, BROADCAST PRODUCER - 01/27/2025 12:43 PM EDT Called patient with results. RNA polymerase III ab increased from 58 to 103. She has HRCT scheduledin a week here at . I will get records from [facility] PFT, new referral placed to pulmonology for second opinion possible ILD. ECHO ordered. Pt denied skin thickening, she does have GERDwith Dysphagia, Raynaud's but neg SILVIA. Concern for possible Scleroderma. documented in this encounter Plan of Treatment Upcoming Encounters Date Type Department Care Team (Late st Contact Info) Description 03/24/2025 9:30 AM EST Office Visit [facility] Medicine Specialties [address], [address] [place] [address] Matthew, May [address] [facility] [address] [place] [address] 03/24/2025 10:00 AM EST Ancillary Procedure [facility] Medicine Specialties [address], [address] [place] [address] 03/27/2025 8:00 AM EST Office Visit [facility] Medicine Specialties [address], [address] [place] [address] Kirby Arthur MD [address] [facility] [address] [place] [address] Scheduled Orders Name Type Priority Associated Diagnoses [...] documented as of this encounter Care Teams Budget Coordinator Relationship Specialty Start Date End Date Alma Gross APRN [address] [place] [address] PCP - General 05/08/23 documented as of this encounter
--- OUTSIDE RECORDS SUMMARY | 2025-03-23 12:18 | XMS_ITS | Encounter Summary ---
Author Organization Healthcare Address [address] [place] [address] Care Team Providers Care Stone Rubber Name Role Phone Alma Gross INDUSTRIAL REAL ESTATE AGENT Primary Care Provider +1- [phone] Encounter Details Date Type Department Care Team (Late st Contact Info) Description 01/26/2025 Telephone [facility]ties [address] [place] [address] Matthew, May R, INDUSTRIAL REAL ESTATE AGENT [address] [place] [address] Social History Tobacco Use Types [...] for her to see one of our gas specialist's on the ILD team The referral that's in is still good until 2025, but it got cancelled, so she's wondering about getting that reinstated and getting that scheduled CB: [phone] * Telephone Encounter - Tracey Eisenberg - 01/26/2025 11:20 AM EDT Clinical Concern/Question Reason for Call: Pt is calling to follow up on referral for pulmonology. Please call. Best contact number: [phone] (mobile) Optimal time of day to reach [...] will receive notification of the communication/outcome via gantto. documented in this encounter Plan of Treatment Upcoming Encounters Date Type Department Care Team (Late st Contact Info) Description 03/24/2025 9:30 AM EST Office Visit [facility] Medicine Specialties [address], [address] [place] [address] Matthew, May R, INDUSTRIAL REAL ESTATE AGENT [address] [place] [address] 03/24/2025 10:00 AM EST Ancillary Procedure [facility] Medicine Specialties [address] [place] [address] 03/27/2025 8:00 AM EST Office Visit [facility]ties [address] [place] [address] Kirby Arthur MD [address] [place] [address] documented as of this encounter [...] documented as of this encounter Care Teams Stone Rubber Relationship Specialty Start Date End Date Alma Gross APRN [address] [place] [address] PCP - General 05/08/23 documented as of this encounter
--- OUTSIDE RECORDS SUMMARY | 2025-03-23 12:18 | XMS_ITS | Encounter Summary ---
Author Organization [facility] Address [address] [place] [address] Care Team Providers Care Electromedical Equipment Technician Name Role Phone Alma Gross SUPPLIES PACKER Primary Care Provider +1- [phone] Reason for Referral * Imaging (Routine) - Pending Review Specialty Diagnoses / Procedures Referred By Joyce jones Referred To Contact Radiology Diagnoses Hypodense mass of liver Procedures US Abdomen Focused Region Liver May [address] [place] [address] Phone: tel: fax: Referral ID Status Reason Start Date Expiration Date V isits Requested Visits Authorized [id number] Pending Review 02/06/2025 08/08/2026 1 1 Encounter Details Date Type Department Care Team (Late st Contact Info) Description 02/06/2025 Orders Only [facility] [address], [address] [place] [address] Matthewmay, [address] [place] [address] Hypodense mass of liver (Primary [...] Notes * Progress Notes - Matthew May, SUPPLIES PACKER - 02/06/2025 3:07 PM EDT Liver ultrasound ordered for hypodense lesion noted on chest CT. Message sent to patient. documented in this encounter Plan of Treatment Upcoming Encounters Date Type Department Care Team (Late st Contact Info) Description 03/24/2025 9:30 AM EST Office Visit [facility] Medicine Specialties [address], [address] [place] [address] Matthew May [address] [facility] [address] [place] [address] 03/24/2025 10:00 AM EST Ancillary Procedure [facility] Medicine Specialties [address] [place] [address] 03/27/2025 8:00 AM EST Office Visit [facility] Medicine Specialties [address] [place] [address] Kirby Arthur MD [address] [facility] [address] [place] [address] Scheduled Orders Name Type Priority Associated Diagnoses [...] documented as of this encounter Care Teams Electromedical Equipment Technician Relationship Specialty Start Date End Date Alma Gross APRN [address] [place] [address] PCP - General 05/08/23 documented as of this encounter
--- NOTE | 2025-03-23 12:19 | XR_ITS ---
FINAL REPORT CLINICAL HISTORY: left knee pain FINDINGS: AP, lateral and oblique views of the left knee were obtained. There is no prior exam for comparison. There is no acute osseous abnormality of the left knee. Degenerative joint disease is most pronounced at the patellofemoral compartment. The soft tissues are normal. There is no joint effusion. IMPRESSION: Degenerative change without acute osseous abnormality of the left knee. Reviewed, Interpreted and Dictated by Katherin Lopez MD Transcribed by Amparo Pimentel Authenticated and . [facility]
--- OUTSIDE RECORDS SUMMARY | 2025-03-23 12:19 | XMS_ITS | Encounter Summary ---
Author Organization Healthcare Address [address] [place] [address] Care Team Providers Care Associate Dean Name Role Phone Alma Gross ENVIRONMENTAL PROTECTION OFFICER Primary Care Provider +1- [phone] Encounter Details Date Type Department Care Team (Late st Contact Info) Description 01/12/2025 Telephone [facility]ties [address] [place] [address] Matthew, May R, ENVIRONMENTAL PROTECTION OFFICER [address] [place] [address] Social History Tobacco Use Types [...] about a PA Best contact number: Other: [phone] Optimal time of day to reach caller: ANYTIME Additional comments/information from caller: None Note: Please do not reply to this message. Follow-up communication and further actions as a result of this message need to be communicated with the patient directly, if the patient is not active onMyChart. If the patient is active on MyChart, they will receive notification of the communication/outcome via Neomobilet. documented in this encounter Plan of Treatment Upcoming Encounters Date Type Department Care Team (Late st Contact Info) Description 03/24/2025 9:30 AM EST Office Visit [facility] [address] [place] [address] Cristel Castro, SHERWIN [address] [facility] [address] [place] [address] 03/24/2025 10:00 AM EST Ancillary Procedure [facility] [address], [address] [place] [address] 03/27/2025 8:00 AM EST Office Visit [facility] [address] [place] [address] Kirby Arthur MD [address] [facility] [address] [place] [address] documented as of this encounter Visit Diagnoses [...] documented as of this encounter Care Teams Associate Dean Relationship Specialty Start Date End Date Alma Gross APRN [address] [place] [address] PCP - General 05/08/23 documented as of this encounter
--- OUTSIDE RECORDS SUMMARY | 2025-03-23 12:19 | XMS_ITS | Encounter Summary ---
Author Organization Healthcare Address [address] [place] [address] Care Team Providers Care Band Reamer Machine Operator Name Role Phone Alma Gross HEEL SLUGGER Primary Care Provider +1- [phone] Reason for Referral * Imaging (Routine) - Pending Review Specialty Diagnoses / Procedures Referred By Joyce jones Referred To Contact Radiology Diagnoses Liver lesion Procedures MR Abdomen Liver Quantification WO IV Contrast May [address] [facility] [address] [place] [address] Phone: tel: fax: Referral ID Status Reason Start Date Expiration Date V isits Requested Visits Authorized [id number] Pending Review 03/16/2025 09/15/2026 1 1 Encounter Details Date Type Department Care Team (Late st Contact Info) Description 03/16/2025 Orders Only [facility] Medicine Specialties [address] [place] [address] Matthewmay, [address] [place] [address] Psoriatic arthritis (CMS/HCC) (Primary Dx); Liver lesion Social History Tobacco Use Types Packs/Day Years [...] Notes * Progress Notes - Matthew May, HEEL SLUGGER - 03/16/2025 12:38 PM EDT Pt reported knee swelling and pain. Denied s/s of DVT . She will monitor for the symptoms and go toER if they occur. Start Tramadol every 6 hours as needed for severe pain. Hold Trazodone. I will d/c ultrasound of liver and order MRI of Liver. documented in this encounter Plan of Treatment Upcoming Encounters Date Type Department Care Team (Late st Contact Info) Description 03/24/2025 9:30 AM EST Office Visit [facility] Medicine Specialties [address] [place] [address] MatthewMay, [address] [facility] [address] [place] [address] 03/24/2025 10:00 AM EST Ancillary Procedure [facility] Medicine Specialties [address] [place] [address] 03/27/2025 8:00 AM EST Office Visit [facility] Medicine Specialties [address] [place] [address] Kirby Arthur MD [address] [facility] [address] [place] [address] Scheduled Orders Name Type Priority Associated Diagnoses Orde r Schedule MR Abdomen Liver Quantification WO IV Contrast Imaging Routine Liver lesion Expected: 03/16/2025 (Approximate), Expires: 09/17/2026 documented as of this encounter Visit Diagnoses Diagnosis Psoriatic arthritis (CMS/HCC)- Primary Psoriatic arthropathy Liver lesion Other specified disorders of liver documented in this encounter Additional Health Concerns Assessment Noted Time PHQ-9 Depression Total Score: 0 01/08/20 2:27 PM EDT A fall risk assessment has been complete d for the patient 01/07/2025 2:27 PM EDT A Body Mass Index follow-up plan has been documented for the patient 01/07/2025 3:27 PM EDT documented as of this encounter Care Teams Band Reamer Machine Operator Relationship Specialty Start Date End Date Alma Gross APRN [address] [place] [address] PCP - General 05/08/23 documented as of this encounter
--- OUTSIDE RECORDS SUMMARY | 2025-03-23 12:19 | XMS_ITS | Encounter Summary ---
Author Organization [facility] Address [address] [place] [address] Care Team Providers Care Postage Machine Operator Name Role Phone Alma Gross SHERWIN Primary Care Provider +1- [phone] Reason for Visit * Reason Onset Date Comments [facility] New Start 01/07/2025 Encounter Details Date Type Department Care Team (Late st Contact Info) Description 01/07/2025 Telephone [facility] Medicine Specialties [address] [place] [address] Nayeli Izaguirre, PharmD [facility] New [...] 28 day supply with 3 refills to [facility] pharmacy. documented in this encounter Plan of Treatment Upcoming Encounters Date Type Department Care Team (Late st Contact Info) Description 03/24/2025 9:30 AM EST Office Visit [facility] Medicine [facility] [address], [address] [place] [address] Cristel Castro R, NET TECHNICAL ARCHITECT [address] [place] [address] 03/24/2025 10:00 AM EST Ancillary Procedure [facility] Medicine [facility] [address], [address] [place] [address] 03/27/2025 8:00 AM EST Office Visit [facility] [address], [address] [place] [address] Kirby Arthur MD [address] [place] [address] documented as of this encounter Visit Diagnoses Diagnosis Psoriatic arthritis (CMS/[facility])- Primary Psoriatic arthropathy documented in this encounter Additional Health Concerns Assessment Noted Time PHQ-9 Depression Total Score: 0 01/08/20 25 2:27 PM EDT A fall risk assessment has been complete d for the patient 01/07/2025 2:27 PM EDT A Body Mass Index follow-up plan has been documented for the patient 01/07/2025 3:27 PM EDT documented as of this encounter Care Teams Postage Machine Operator Relationship Specialty Start Date End Date Alma Gross NET TECHNICAL ARCHITECT [address] [place] [address] PCP - General 05/08/23 documented as of this encounter
--- OUTSIDE RECORDS SUMMARY | 2025-03-23 12:19 | XMS_ITS | Encounter Summary ---
Author Organization Healthcare Address [address] [place] [address] Care Team Providers Care Delivery Sales Worker Name Role Phone Alma Gross SHERWIN Primary Care Provider +1- [phone] Encounter Details Date Type Department Care Team [...] Description 03/24/2025 9:30 AM EST Office Visit [facility] Medicine [facility]ties [address] [place] [address] Matthew, May R, BUILDING GUARD DEPUTY SHERIFF [address] [place] [address] 03/24/2025 10:00 AM EST Ancillary Procedure [facility] Medicine Specialties [address] [place] [address] 03/27/2025 8:00 AM EST Office Visit [facility] Medicine Specialties [address] [place] [address] Kirby Arthur MD [address] [place] [address] documented as of this encounter [...] documented as of this encounter Care Teams Delivery Sales Worker Relationship Specialty Start Date End Date Alma Gross, SHERWIN [address] [place] [address] PCP - General 05/08/23 documented as of this encounter
--- OUTSIDE RECORDS SUMMARY | 2025-03-23 12:19 | XMS_ITS | Clinical Summary ---
Author Organization [facility] Address [address] [place] [address] Care Team Providers Care Branch Store Manager Name Role Phone Alma Gross Cathy COURTNEY Primary Care Provider [phone] Allergies No known active allergies Medications albuterol [...] tablet 1 tablet (10 mg). 4 Active ipratropium-alb uterol (Duo-Neb) 0.5-2.5 [...] every 4 weeks. 5 mL 5 Active traMADol (Ultram) 50 MG tabletIndicatio ns:Psoriatic arthritis (CMS/HCC) Take 1 tablet by mouth every 6 hours as needed for severe pain. 30 tablet 5 Active traMADol (Ultram) 50 MG tablet 1 tablet (50 mg). 4 025 Discontin ued(Reord er) Active Problems No known active problems Encounters Date Type Department Care Team Description 03/22/2025 Travel 03/16/2025 Orders Only [facility] Medicine Specialties [address] [place] [address] May R, SALESPERSON FLOWERS Psoriatic arthritis (CMS/HCC) (Primary Dx); Liver lesion 03/03/2025 Travel 02/06/2025 1:25 PM EDT - 02/06/2025 11:59 PM EDT Hospital Encounter [facility] [address] [place] [phone] Shortness of breath Discharge Disposition: Home or Self Care 02/06/2025 Orders Only [facility] [address] [place] [address] May R, SALESPERSON FLOWERS Hypodense mass of liver (Primary Dx) 02/06/2025 Travel 01/27/2025 Telephone [facility] [address], [address] [place] [phone] May, 01/27/2025 Orders Only [facility] Medicine Specialties [address], [facility] [place] [phone] May Shortness of breath (Primary Dx); Chronic obstructive pulmonary disease, unspecified COPD type (CMS/HCC) 01/26/2025 Telephone [facility] [address], [facility] [place] [phone] May, SALESPERSON FLOWERS 01/12/2025 Telephone [facility] Specialties [facility] [address], [address] [place] [phone] May, SALESPERSON FLOWERS 01/07/2025 2:30 PM EDT Office Visit [facility] Specialties [address] [place] [phone] May Psoriatic arthritis (CMS/HCC) (Primary Dx); High risk medication use; Raynaud's phenomenon without gangrene; Chronic obstructive pulmonary disease, unspecified COPD type (CMS/HCC); SILVIA positive; Gastroesophageal reflux disease, unspecified whether esophagitis present; Shortness of breath 01/07/2025 Telephone [facility] Medicine Specialties [facility] [address], [address] [place] [phone] Nayeli Izaguirre, PharmD [employer] [facility] 01/07/2025 [...] Description 03/24/2025 9:30 AM EST Office Visit [facility] Specialties [address] [place] [phone] Cristel Castro R, SALESPERSON FLOWERS [address] [facility] [address] [place] [address] 03/24/2025 10:00 AM EST Ancillary Procedure [facility] [address] [place] [address] 03/27/2025 8:00 AM EST Office Visit [facility] [address] [place] [address] Kirby Arthur MD [address] [facility] [address] [place] [phone] Health Maintenance Due Date Last Done Comments [facility]-Infant/Child/Adol SDOH Screenings 1963 [facility]- SDOH Screenings 1981 [facility]-Adult SDOH Screenings 1981 [facility]-DTaP,Tdap,and Td Vaccines (1 - Tdap) 1982 [facility]-Hepatitis A Vaccines (1 of 2 - Risk 2-dose series) 1982 [facility]-Zoster Vaccines (1 of 2) 1982 [facility]-Pap Smear 1984 [facility]-Cervical Cancer Screening 1993 [facility]-HPV/Cotest 1993 CT Colonography 2008 Colonoscopy 2008 FIT-DNA 2008 FIT 2008 FOBT 2008 Sigmoidoscopy 2008 [facility]-Colorectal Cancer Screening 2008 Lung Cancer Screening Shared Decision Making 2013 [facility]-Breast Cancer Screening 2013 [facility]-RSV Vaccine: 60+ Years or (1 - Risk 60-74 years 1-dose series) 2023 [id number] Vaccine (5 - Moderna risk 2023-) 01/19/2025 02/05/2024, 03/25/2021, 06/25/2020, Additional history exists [facility]-Influenza [...] Teddy Suarez MD on 02/06/2025 2:52 PM us May R Matthew [employer]ESP[employer] IMG CT PROCEDURES Final Res ult * Cryoglobulin, Serum (SO) (01/07/2025 4:03 PM EDT) Cryoglobulin, S Negative Negative %ppt 01/12/2025 10:33 PM EDT [facility] Comment: This test is negative at 24 hours. All samples are held and reviewed again at 7 days. If delayed precipitation occurs after 7 days, Immunofixation will be performed and an additional report will follow. Test Performed by: [facility] [address] [place] [address] Table Top Tile Setter: Barbara Easley Ph.D.; CLIA# [id number] Blood Venous blood specimen / Unknown Venipuncture / Unknown 01/07/2025 4:03 PM EDT 01/07/2025 4:03 PM EDT may Matthew [employer] LAB REF LAB BLOOD AND FLUID ORD Final Result [facility] * (ABNORMAL) RNA Polymerase III Antibody, IgG (01/07/2025 4:03 PM EDT) RNA Polymerase III Antibody, IgG 103(H) 0 - 19 Units 01/10/2025 9:46 PM EDT [facility] Blood Venous blood specimen / Unknown Venipuncture / Unknown 01/07/2025 4:03 PM EDT 01/07/2025 4:03 PM EDT Narrative [facility] - 01/10/2025 9:46 PM EDT INTERPRETIVE INFORMATION: [...] antibodies associated with SSc, including centromere, Scl-70, U3-CROZER, PM/Scl, or Th/To. Performed By: [facility] [address] [place] [address] Parasitologist: Martell Anton MD, PhD CLIA Number: [id number] may R Matthew [employer]ESP[employer] FLOWERS LAB BLOOD ORDERABLES Final Result [facility] [address] [place] [address] * Centromere Antibody, IgG (01/07/2025 4:03 PM EDT) [facility] Centromere Ab, IgG 0 0 - 40 AU/mL 01/11/2025 12:33 AM EDT [facility] Blood Venous blood specimen / Unknown Venipuncture / Unknown 01/07/2025 4:03 PM EDT 01/07/2025 4:03 PM EDT Narrative [facility]) - 01/11/2025 12:33 AM EDT INTERPRETIVE [...] other antibodies associated with SSc, including Scl-70, U3-CROZER, PM/Scl, or Th/To. Performed By: [facility] [address] [place] [address] Parasitologist: Martell Anton MD, PhD CLIA Number: [id number] us May R [facility] LAB BLOOD ORDERABLES Final Result [facility] [address] [place] [address] * Hepatitis C Antibody (01/07/2025 4:03 PM EDT) Hepatitis C Antibody Negative Negative 01/07/2025 7:32 PM EDT [facility] Blood Venous blood specimen / Unknown Venipuncture / Unknown 01/07/2025 4:03 PM EDT 01/07/2025 4:03 PM EDT us May R [facility] LAB BLOOD ORDERABLES Final Result [facility] [address] [place] [address] * Anti-scleroderma antibody (01/07/2025 4:03 PM EDT) SCLERODERMA (SCL-70) (DAVID) ANTIBODY, IGG 0 0 - 40 AU/mL 01/11/2025 12:33 AM EDT [facility] Blood Venous blood specimen / Unknown Venipuncture / Unknown 01/07/2025 4:03 PM EDT 01/07/2025 4:03 PM EDT Narrative [facility] - 01/11/2025 12:33 AM EDT [...] testing for centromere, RNA polymerase III and U3-CROZER, PM/Scl, or Th/To antibodies. Performed By: [facility] [address] [place] [address] Parasitologist: Martell Anton MD, PhD CLIA Number: [id number] [facility] BLOOD ORDERABLES Final Result Performing Organization Address City/[facility]/ZIP Co de Phone Number [facility] [address] [place] [address] * Hepatitis B Core Total Antibody IgG,IgM (01/07/2025 4:03 PM EDT) [facility] Hepatitis B Core Total Antibody IgG,IgM Negative Negative 01/07/2025 8:30 PM EDT [facility] Blood Venous blood specimen / Unknown Venipuncture / Unknown 01/07/2025 4:03 PM EDT 01/07/2025 4:03 PM EDT [facility] Final Result [facility] [address] [facility] [place] [address] * Quantiferon TB Gold Plus (01/07/2025 4:03 PM EDT) [facility] Quantiferon TB Gold Plus Result Negative Negative 01/08/2025 7:[address] [facility] TB Nill Value 0.0403 IU/mL 01/08/2025 7:[address] [facility] TB Antigen 1 0.0249 IU/mL 01/08/2025 7:[address] [facility] TB Antigen 2 0.0152 IU/mL 01/08/2025 7:[address] [facility] TB Mitogen 9.9597 IU/mL 01/08/2025 7:53 PM EDT [facility] Blood Venous blood specimen / Unknown Venipuncture / Unknown 01/07/2025 4:03 PM EDT 01/07/2025 4:[address] [facility] - 01/08/2025 7:53 PM EDT Responses to the Mitogen positive control and occasionally to TB antigen can be above the assay range. For calculation purposes: IFN-gamma values > 10 IU/mL are handled as 10 IU/mL. May [facility] LAB BLOOD ORDERABLES Final Result Performing Organization Address [facility] Co de Phone Number [facility] [address] [place] [address] * Creatinine, Plasma (01/07/2025 4:03 PM EDT) Creatinine, Plasma 0.68 0.60 - 1.10 mg/dL 01/07/2025 7:[address] [facility] eGFRcr 99.2 mL/min/1.7 3m*2 01/07/2025 7:[address] [facility] Comment:Reported eGFRcr in m L/min/1.73m2 is based the CKD-EPI 2020 equation that does not use a race coefficient. Blood Venous blood specimen / Unknown Venipuncture / Unknown 01/07/2025 4:03 PM EDT 01/07/2025 4:03 PM EDT May [facility] LAB BLOOD ORDERABLES Final Result Performing Organization Address City/[facility]/ZIP Co de Phone Number [facility] [address] [place] [address] * (ABNORMAL) CBC and Differential (01/07/2025 4:03 PM EDT) [facility] Signature WBC Count 9.02 3.70 - 10.30 10*3/uL LAB HEMATOLOGY METHOD 01/07/2025 7:[address] [facility] RBC Count 4.66 3.90 - 5.20 10*6/uL LAB HEMATOLOGY METHOD 01/07/2025 7:[address] [facility] HGB 14.5 11.2 - 15.7 g/dL LAB HEMATOLOGY METHOD 01/07/2025 7:[address] [facility] HCT 43.6 34.0 - 45.0 % LAB HEMATOLOGY METHOD 01/07/2025 7:[address] [facility] Platelet Count 269 155 - 369 10*3/uL LAB HEMATOLOGY METHOD 01/07/2025 7:[address] [facility] MCV 94 79 - 98 fL LAB HEMATOLOGY METHOD 01/07/2025 7:[address] [facility] MCH 31.1 26.0 - 32.0 pg LAB HEMATOLOGY METHOD 01/07/2025 7:[address] [facility] MCHC 33.3 30.7 - 35.5 g/dL LAB HEMATOLOGY METHOD 01/07/2025 7:[address] [facility] RDW 13.7 11.5 - 14.5 % LAB HEMATOLOGY METHOD 01/07/2025 7:[address] [facility] MPV 11.7 8.8 - 12.5 fL LAB HEMATOLOGY METHOD 01/07/2025 7:[address] [facility] nRBC 0.0 <=0.0 per 100 WBCs LAB HEMATOLOGY METHOD 01/07/2025 7:[address] [facility] Differential Type Automated LAB HEMATOLOGY METHOD 01/07/2025 7:[address] [facility] Neutrophils % 68 % LAB HEMATOLOGY METHOD 01/07/2025 7:[address] [facility] Lymphocytes % 21 % LAB HEMATOLOGY METHOD 01/07/2025 7:[address] [facility] Monocytes % 8 % LAB HEMATOLOGY METHOD 01/07/2025 7:[address] [facility] Eosinophils % 2 % LAB HEMATOLOGY METHOD 01/07/2025 7:[address] [facility] Basophils % 1 % LAB HEMATOLOGY METHOD 01/07/2025 7:[address] [facility] Immature Granulocytes % 0 % LAB HEMATOLOGY METHOD 01/07/2025 7:[address] [facility] Neutrophils Absolute 6.21(H) 1.60 - 6.10 10*3/uL LAB HEMATOLOGY METHOD 01/07/2025 7:[address] [facility] Lymphocytes Absolute 1.90 1.20 - 3.90 10*3/uL LAB HEMATOLOGY METHOD 01/07/2025 7:[address] [facility] Monocytes Absolute 0.70 0.30 - 0.90 10*3/uL LAB HEMATOLOGY METHOD 01/07/2025 7:[address] [facility] Eosinophils Absolute 0.14 0.00 - 0.50 10*3/uL LAB HEMATOLOGY METHOD 01/07/2025 7:[address] [facility] Basophils Absolute 0.05 0.00 - 0.10 10*3/uL LAB HEMATOLOGY METHOD 01/07/2025 7:[address] [facility] Immature Granulocytes Absolute 0.02 0.00 - 0.06 10*3/uL LAB HEMATOLOGY METHOD 01/07/2025 7:[address] [facility] Blood Venous blood specimen / Unknown Venipuncture / Unknown 01/07/2025 4:03 PM EDT 01/07/2025 4:[address] [facility] - 01/07/2025 7:08 PM EDT Therapeutic decision making should be based on absolute values, rather than percentages. May R Matthew ROBERTSONN LAB BLOOD ORDERABLES Final Result [facility] [address] [place] [address] * Rheumatoid Factor, Plasma (01/07/2025 4:03 PM EDT) Rheumatoid Factor, Plasma <10 <14 IU/mL 01/07/2025 10:[address] [facility] Blood Venous blood specimen / Unknown Venipuncture / Unknown 01/07/2025 4:03 PM EDT 01/07/2025 4:03 PM EDT may R Matthew [employer]OWERS LAB BLOOD ORDERABLES Final Result Performing Organization Address City/[facility]/ZIP Co de Phone Number [facility] [address] [place] [address] * (ABNORMAL) C3 Complement (01/07/2025 4:03 PM EDT) C3 Complement 174(H) 84 - 166 mg/dL 01/07/2025 10:[address] [facility] Blood Venous blood specimen / Unknown Venipuncture / Unknown 01/07/2025 4:03 PM EDT 01/07/2025 4:03 PM EDT may Matthew [employer] FLOWERS LAB BLOOD ORDERABLES Final Result Performing Organization Address [facility] Co de Phone Number [facility] [address] [place] [address] * C4 Complement (01/07/2025 4:03 PM EDT) C4 Complement 29 13 - 36 mg/dL 01/07/2025 10:33 PM EDT [facility] Blood Venous blood specimen / Unknown Venipuncture / Unknown 01/07/2025 4:03 PM EDT 01/07/2025 4:03 PM EDT may Matthew ROBERTSONN LAB BLOOD ORDERABLES Final Result Performing Organization Address [facility]/ZIP Co de Phone Number [facility] [address] [place] [address] * (ABNORMAL) C-Reactive Protein, Plasma (01/07/2025 4:03 PM EDT) CRP, Plasma 11.5(H) <=8.0 mg/L 01/07/2025 7:[address] [facility] Blood Venous blood specimen / Unknown Venipuncture / Unknown 01/07/2025 4:03 PM EDT 01/07/2025 4:[address] [facility] - 01/07/2025 7:54 PM EDT This CRP test is appropriate for assessment of infection, systemic inflammation and/or tissue injury. To assess cardiovascular disease risk order high sensitivity CRP (CRPH). may Matthew ROBERTSONN LAB BLOOD ORDERABLES Final Result [facility] [address] [place] [address] * ANTI NUCLEAR AB (01/07/2025 4:03 PM EDT) SILVIA INTERPRETIVE COMMENT See Note 01/10/2025 5:13 PM EDT [facility] Anti Nuc Ab Screen <1:80 <1:80 01/10/2025 5:13 PM EDT [facility] Blood Venous blood specimen / Unknown Venipuncture / Unknown 01/07/2025 4:03 PM EDT 01/07/2025 4:03 PM EDT Narrative [facility] - 01/10/2025 5:13 PM EDT Clinical Interpretation: [...] not necessarily rule out SARD. Performed By: [facility] [address] [place] [address] Parasitologist: Martell Anton MD, PhD CLIA Number: [id number] may R Matthew COURTNEY LAB BLOOD ORDERABLES Final Result Performing Organization Address City/[facility]/ZIP Co de Phone Number [facility] [address] [place] [address] * Hepatic Function Panel (01/07/2025 4:03 PM EDT) Direct Bilirubin, Plasma <0.2 <=0.3 mg/dL 01/07/2025 7:[address] [facility] Alkaline Phosphatase, Plasma 90 46 - 142 U/L 01/07/2025 7:[address] [facility] Total Bilirubin, Plasma 0.2 0.2 - 1.1 mg/dL 01/07/2025 7:[address] [facility] Albumin, Plasma 3.8 3.5 - 5.2 g/dL 01/07/2025 7:[address] [facility] Total Protein 6.4 6.3 - 7.9 g/dL 01/07/2025 7:[address] [facility] ALT, Plasma 26 10 - 35 U/L 01/07/2025 7:[address] [facility] AST, Plasma 30 10 - 35 U/L 01/07/2025 7:[address] [facility] Blood Venous blood specimen / Unknown Venipuncture / Unknown 01/07/2025 4:03 PM EDT 01/07/2025 4:03 PM EDT may R Matthew COURTNEY LAB BLOOD ORDERABLES Final Result [facility] [address] [place] [address] * HIV 1 & 2 Antibody/Antigen Screen (05/30/2023 1:32 PM EST) HIV 1 & 2 Antibody/Antigen Screen Non Reactive Non Reactive 05/30/2023 3:32 PM EST [facility] Comment:Screening for HIV 1 & 2 antibodies, and P24 antigen is NONREACTIVE. No confirmatory testing is required. Blood Venous blood specimen / Unknown Venipuncture / Unknown 05/30/2023 1:32 PM EST 05/30/2023 1:34 PM EST May R Matthew [employer] FLOWERS LAB BLOOD ORDERABLES Final Result [facility] [address] [place] [address] from Last 3 Months or Most Recently Relevant to Health Maintenance Insurance [facility] Care Teams Branch Store Manager Relationship Specialty Start Date End Date Alma Gross APRN [address] [place] [address] PCP - General 05/08/23
== END 2025-03-23 23:59 | disposition home or self-care (01) ==
LOC: RAD 12:17
PROVIDERS: PCP Nurse Practitioner Family; Visit Provider Physician Assistant
DX: M17.12 Unilateral primary osteoarthritis, left knee (principal)
CPT/HCPCS: 73562